=== PATIENT | male | born 1950 ===

== ENCOUNTER 2016-09-25 21:18 | Inpatient (IN) | payer MEDICAID, OTHER ==
[2016-09-25] MEDS ORDERED: Sodium Chloride 0.9% 1,000 ML IV ONE (21:46)
--- NOTE | 2016-09-25 21:50 | C.PDOC ---
History Of Present Illness 66 year old patient presents to the ED complaining of several episodes of watery diarrhea for the past 5 days. Patient also complains of vomiting for 1 day. He has been able to tolerate some water. He feels like his throat is dry and voice is becoming hoarse. Patient denies fever, chills, abdominal pain, urinary symptoms, shortness of breath, or any other complaints. Time Seen by Provider: 09/25/16 21:40 Chief Complaint (Nursing): Abdominal Pain History Per: Patient History/Exam Limitations: no limitations Onset/Duration Of Symptoms: Days (5) Current Symptoms Are (Timing): Still Present Context: Other Severity: None Pain Scale Rating Of: 0 Radiation Of Pain To:: None Quality Of Discomfort: Unable To Describe Associated Symptoms: Vomiting, Diarrhea Exacerbating Factors: None Alleviating Factors: None Last Bowel Movement: Today Recent travel outside of the [place] States: No Past Medical History Reviewed: Historical Data, Nursing Documentation, Vital Signs Vital Signs: Last Vital Signs Temp 97.7 F 09/25/16 21:34 Pulse 108 H 09/25/16 21:34 Resp 20 09/25/16 21:34 BP 146/100 H 09/25/16 21:34 Pulse Ox 98 09/25/16 22:55 Family History: States: Unknown Family Hx - Social History Hx Alcohol Use: No Hx Substance Use: No - Immunization History Hx Tetanus Toxoid Vaccination: No Hx Influenza Vaccination: No Hx Pneumococcal Vaccination: No Review Of Systems Except As Marked, All Systems Reviewed And Found Negative. Constitutional: Negative for: Fever, Chills ENT: Positive for: Other (throat dryness) Respiratory: Negative for: Shortness of Breath Gastrointestinal: Positive for: Vomiting, Diarrhea. Negative for: Abdominal Pain Genitourinary: Negative for: Dysuria, Hematuria Physical Exam - Physical Exam Appears: Non-toxic, No Acute Distress, Other (dehydrated) Skin: Warm, Dry Head: Atraumatic, Normacephalic Eye(s): bilateral: Normal Inspection, PERRL, EOMI Ear(s): Bilateral: Normal Nose: Normal Oral Mucosa: Dry Throat: Normal, No Erythema, No Exudate Neck: Normal ROM, Supple Chest: Symmetrical Cardiovascular: Rhythm Regular (tachycardic) Respiratory: Normal Breath Sounds, No Rales, No Rhonchi, No Wheezing Gastrointestinal/Abdominal: Soft, No Tenderness, No Guarding, No Rebound Back: Normal Inspection, No CVA Tenderness Extremity: Normal ROM Neurological/Psych: Oriented x3, Normal Speech, Normal Cognition Gait: Steady ED Course And Treatment - Laboratory Results Result Diagrams: 09/25/16 22:01 09/25/16 22:01 Lab Interpretation: Abnormal (WBC 19.2 with left shift, glucose 404 with Na+129 , Cl-86) O2 Sat by Pulse Oximetry: 98 (room air) Pulse Ox Interpretation: Normal - Physician Consult Information Time Consulting Physician Contacted: 22:51 Physician Contacted: Sean Castro Medical Decision Making Medical Decision Making: Plan: * Labs * IV fluids Disposition - Disposition Disposition: HOSPITALIZED Disposition Time: 22:55 Condition: IMPROVED - POA Present On Arrival: Poor Glycemic Control - Clinical Impression Clinical Impression: Diarrhea, Uncontrolled diabetes mellitus - Scribe Statement The provider has reviewed the documentation as recorded by the Scribe Cassandra Harris Provider Attestation: All medical record entries made by the Scribe were at my direction and personally dictated by me. I have reviewed the chart and agree that the record accurately reflects my personal performance of the history, physical exam, medical decision making, and the department course for this patient. I have also personally directed, reviewed, and agree with the discharge instructions and disposition.
[2016-09-25 22:06] LABS: BASO # 0.1 K/uL (0.0-0.2); BASO % 0.5 % (0.0-2.0); EOS # 0.1 K/uL (0.0-0.7); EOS % 0.3 % (0.0-4.0); LYMPH # 1.8 K/uL (1.0-4.3); LYMPH % 9.2 % (20.0-40.0); MEAN CORPUSCULAR HEMOGLOBIN 21.3 pg (27.0-31.0); MEAN CORPUSCULAR HGB CONC 31.4 g/dL (33.0-37.0); MEAN PLATELET VOLUME 9.4 fL (7.2-11.7); MONO # 1.9 K/uL (0.0-0.8); MONO % 9.9 % (0.0-10.0); PLATELET COUNT 454 K/uL (130-400); RED CELL DISTRIBUTION WIDTH 18.1 % (11.5-14.5); WHITE BLOOD COUNT 19.2 K/uL (4.8-10.8)
[2016-09-25 22:17] LABS: CHLORIDE 86 mmol/L (98-107); POTASSIUM 4.2 mmol/L (3.6-5.2); SODIUM 129 mmol/L (132-148)
[2016-09-25 22:17] LABS: RBC URINE 2 /hpf (0-3); URINE BACTERIA RARE (<OCC); URINE BILIRUBIN NEGATIVE (NEGATIVE); URINE BLOOD NEGATIVE (NEGATIVE); URINE COLOR Amber (YELLOW); URINE GLUCOSE (UA) 3+ mg/dL (Normal); URINE KETONE TRACE mg/dL (NEGATIVE); URINE LEUKOCYTE ESTERASE NEG Leu/uL (Negative); URINE PROTEIN 2+ mg/dL (NEGATIVE); WBC URINE 4 /hpf (0-5)
[2016-09-25 22:19] LABS: AST/SGOT 18 U/L (17-59); BILIRUBIN,TOTAL 1.1 mg/dL (0.2-1.3); CARBON DIOXIDE 30 mmol/L (22-30); GFR AFRICAN-AMERICAN > 60; TOTAL PROTEIN 7.6 g/dL (6.3-8.3)
[2016-09-25 22:20] LABS: ALKALINE PHOSPHATASE 132 U/L (38-126); ALT/SGPT 14 U/L (21-72); BLOOD UREA NITROGEN 19 mg/dL (9-20); CALCIUM 8.7 mg/dl (8.6-10.4)
[2016-09-25 22:24] LABS: GLUCOSE,RANDOM 404 mg/dL (75-110)
[2016-09-25 22:35] LABS: NEUTROPHIL 86 % (50-75); TOTAL CELLS COUNTED 100
[2016-09-26] MEDS ORDERED: (Novolog) Insulin Aspart, Recombinant 100 u/ml 10 ml vial SC ONE ×2 (01:27→02:09)
--- NOTE | 2016-09-26 01:58 | CP.PCM.HP ---
<Hilaria Srinivasan - Last Filed: 09/26/16 02:54> History of Present Illness - History of Present Illness History of Present Illness: CC: "diarrhea and vomiting" HPI: Patient is a 66 year old male with medical history of diabetes mellitus who presents to the emergency department for multiple episodes of diarrhea. Patient reports the diarrhea started 10 days ago. He states he would experience episodes of diarrhea every two hours. Patient states bowel movements were yellow -to-green in color and foul smelling. His last episode of diarrhea was this afternoon. He denies fever, chills, abdominal pain, hematochezia, sick contacts or recent travel. Patient also admits to one episode of clear emesis after drinking water. Patient reports loss of balance with walking and states he fell to the ground while washing his hands in the bathroom 10 days ago. He denies loss of consciousness and recurrent episodes. Patient was noted to be hyperglycemic in emergency department with random glucose of 404. Patient reports he was diagnosed with diabetes in 1999. He does not follow-up with a primary care physician. Patient states he gets insulin from [facility] without a prescription and typically takes 15 units of Insulin twice daily. He does not check his sugar with a glucometer. He states he has been suffering from dry mouth but denies polydipsia and polyuria. Patient also denies chest pain, shortness of breath at rest or with exertion, palpitations, vision changes, cough, headache, weight loss, dysuria, lower extremity swelling, pain or paresthesias. PMD: none PMH: DM Medications: Insulin 15 U SC BID Allergies: NKDA Family History: Father - DM, Mother - from brain tumor Surgical History: none Social History: Denies tobacco, alcohol and illicit drug use. 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 Present on Admission - Present on Admission Any Indicators Present on Admission: No History of DVT/PE: No History of Uncontrolled Diabetes: Yes Urinary Catheter: No Decubitus Ulcer Present: No Review of Systems - Constitutional Constitutional: Fatigue. absent: Chills, Fever, Headache, Night Sweats, Weight Gain, Weight Loss - EENT Eyes: absent: Blurred Vision, Change in Vision Ears: absent: Ear Discharge, Ear Pain Nose/Mouth/Throat: absent: Nasal Congestion, Nasal Discharge - Cardiovascular Cardiovascular: absent: Chest Pain, Chest Pain at Rest, Chest Pain with Activity , Dyspnea, Dyspnea on Exertion, Leg Edema, Palpitations, Pedal Edema - Respiratory Respiratory: absent: Cough, Dyspnea, Wheezing, Chest Congestion - Gastrointestinal Gastrointestinal: Diarrhea, Vomiting. absent: Abdominal Pain, Constipation, Dysphagia, Excessive Flatus, Hematemesis, Hematochezia, Nausea - Genitourinary Genitourinary: absent: Difficulty Urinating, Dysuria, Urinary Frequency - Musculoskeletal Musculoskeletal: absent: Arthralgias, Back Pain, Numbness, Tingling - Integumentary Integumentary: absent: Changing Lesions, New Lesions - Neurological Neurological: absent: Numbness, Headaches, Paresthesias, Tingling Past Patient History - Past Social History Smoking Status: Former Smoker - ENDOCRINE/METABOLIC Hx Diabetes Mellitus Type 1: Yes - PSYCHIATRIC Hx Substance Use: No - SURGICAL HISTORY Hx Surgeries: No - ANESTHESIA Hx Anesthesia: No Meds Allergies/Adverse Reactions: Allergies Allergy/AdvReac Type Severity Reaction Status Date / Time No Known Allergies Allergy Unverified 09/25/16 21:38 Physical Exam - Constitutional Appears: Non-toxic, No Acute Distress - Head Exam Head Exam: ATRAUMATIC, NORMAL INSPECTION, NORMOCEPHALIC - Eye Exam Eye Exam: EOMI, Normal appearance, PERRL - ENT Exam ENT Exam: Mucous Membranes Dry - Neck Exam Neck exam: Positive for: Full Rom, Normal Inspection. Negative for: Lymphadenopathy, Tenderness, Thyromegaly - Respiratory Exam Respiratory Exam: Clear to Auscultation Bilateral, NORMAL BREATHING PATTERN. absent: Chest Wall Tenderness, Rales, Rhonchi, Wheezes - Cardiovascular Exam Cardiovascular Exam: Tachycardia, +S1, +S2. absent: Bradycardia - GI/Abdominal Exam GI & Abdominal Exam: Normal Bowel Sounds, Soft, Tenderness. absent: Distended, Firm, Guarding Additional comments: left lower abdominal quadrant tenderness to palpation - Extremities Exam Extremities exam: Positive for: normal capillary refill, pedal pulses present. Negative for: pedal edema, tenderness Additional comments: hyperpigmented patches to bilateral shins - Back Exam Back exam: NORMAL INSPECTION. absent: CVA tenderness (L), CVA tenderness (R), tenderness - Neurological Exam Neurological exam: Alert, CN II-XII Intact, Normal Gait, Oriented x3 - Psychiatric Exam Psychiatric exam: Normal Affect, Normal Mood - Skin Additional comments: hyperpigmented patches to bilateral shins of lower extremities consistent with stasis dermatitis Results - Vital Signs Recent Vital Signs: Last Vital Signs Temp 97.7 F 09/25/16 21:34 Pulse 108 H 09/25/16 21:34 Resp 20 09/25/16 21:34 BP 146/100 H 09/25/16 21:34 Pulse Ox 98 09/25/16 23:01 - Labs Result Diagrams: 09/25/16 22:01 09/25/16 22:01 Assessment & Plan - Assessment and Plan (Free Text) Assessment: 1. Diarrhea Leukocytosis of 19.2, Neut 86, Band Neutrophils 1 Stool studies - stool culture, leukocytes, electrolytes, c. diff sent Start Normal Saline IV @100cc Monitor 2. Hyperglycemia History of Uncontrolled DM Random Glucose of 404 Insulin 2 units given Started on RISS Normal Saline IV @100cc Accuchecks f/u hemoglobin a1c Monitor 3. 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 Tachycardia pulse 108 f/u TSH, free T4 f/u EKG 5. Prophylaxis SCDs Heparin 5000 U SC Q12h Protonix 20 mg po daily - Date & Time Date: 09/26/16 Time: 03:11 <Sean Castro - Last Filed: 09/26/16 06:32> Results - Vital Signs Recent Vital Signs: Last Vital Signs Temp 98.6 F 09/26/16 02:30 Pulse 98 H 09/26/16 02:30 Resp 20 09/26/16 02:30 BP 147/89 09/26/16 02:30 Pulse Ox 98 09/26/16 02:30 - Labs Result Diagrams: 09/25/16 22:01 09/25/16 22:01 Labs: Laboratory Results - last 24 hr 09/26/16 02:02 POC Glucose (mg/dL) 285 H Assessment & Plan - Date & Time Date: 09/26/16 (I have seen and examined the patient. I agree with the findings and plan of care as documented by Dr. Srinivasan. Patient with diarrhea. Stool studies. IVF for dehydration. Uncontrolled diabetes. Patient reports to use unspecified insulin from [facility] but denies seeing a prescribing doctor. NISS with accuchecks. Check hemoglobin A1C. Start lisinopril for hypertension. Monitor for acute changes.) Time: 06:31 Attending/Attestation - Attestation I have personally seen and examined this patient.: Yes I have fully participated in the care of the patient.: Yes I have reviewed all pertinent clinical information: Yes
[2016-09-26] MEDS: Sodium Chloride 0.9% 1,000 ML IV SCH ×3 (02:37→21:17)
[2016-09-26 04:28] VITALS: RESP 20
[2016-09-26 08:00] LABS: EOS # 0.1 K/uL (0.0-0.7); EOS % 0.8 % (0.0-4.0); MEAN CORPUSCULAR HEMOGLOBIN 21.4 pg (27.0-31.0); MEAN PLATELET VOLUME 9.4 fL (7.2-11.7)
[2016-09-26 08:11] LABS: BASO % 0.3 % (0.0-2.0); HEMATOCRIT 36.3 % (35.0-51.0); LYMPH # 1.6 K/uL (1.0-4.3); LYMPH % 14.2 % (20.0-40.0); MEAN CELL VOLUME 67.4 fL (80.0-94.0); MEAN CORPUSCULAR HGB CONC 31.8 g/dL (33.0-37.0); MONO # 1.3 K/uL (0.0-0.8); MONO % 11.7 % (0.0-10.0); RED CELL DISTRIBUTION WIDTH 17.6 % (11.5-14.5); WHITE BLOOD COUNT 11.1 K/uL (4.8-10.8)
[2016-09-26] MEDS: (Novolog) Insulin Aspart, Recombinant 100 u/ml 10 ml vial SC SCH ×4 (08:22→21:16)
[2016-09-26 08:30] LABS: CHLORIDE 94 mmol/L (98-107); SODIUM 132 mmol/L (132-148)
[2016-09-26 08:31] LABS: POTASSIUM 4.3 mmol/L (3.6-5.2)
[2016-09-26 08:32] LABS: CHOLESTEROL 135 mg/dL (0-199); GFR AFRICAN-AMERICAN > 60
[2016-09-26 08:33] LABS: ALB/GLOB RATIO 0.9 (1.0-2.1); ALKALINE PHOSPHATASE 94 U/L (38-126); ALT/SGPT 16 U/L (21-72); AST/SGOT 15 U/L (17-59); BILIRUBIN,TOTAL 0.9 mg/dL (0.2-1.3); BLOOD UREA NITROGEN 18 mg/dL (9-20); CARBON DIOXIDE 31 mmol/L (22-30); GLUCOSE,RANDOM 211 mg/dL (75-110); TOTAL PROTEIN 6.4 g/dL (6.3-8.3)
[2016-09-26 08:59] LABS: THYROID STIMULATING HORMONE 0.56 mIU/L (0.46-4.68)
[2016-09-26] MEDS ORDERED: Pantoprazole 20 mg EC Tab PO SCH (10:00)
[2016-09-26] MEDS ORDERED: cefTRIAXone IV 1 gm in Dextros 50 ML IVPB SCH (11:00)
[2016-09-26 12:18] LABS: C DIFF TOXIN A B NEGATIVE (NEGATIVE)
--- NOTE | 2016-09-26 14:33 | CP.PCM.PN ---
<Chris Allen - Last Filed: 09/26/16 14:34> Subjective - Date & Time of Evaluation Date of Evaluation: 09/26/16 Time of Evaluation: 14:30 - Subjective Subjective: Med progress note. Attending: Dr. Stark Pt seen and examined at bedside. No acute distress. Pt has had 2 more episodes of diarrhea past 24 hrs, becoming more formed. No blood. Has never had colonoscopy. No fevers, chills, vomiting. Objective - Vital Signs/Intake and Output Vital Signs (last 24 hours): Temp Pulse Resp BP Pulse Ox 98.1 F 91 H 20 117/81 98 09/26/16 07:51 09/26/16 07:51 09/26/16 07:51 09/26/16 07:51 09/26/16 07:51 Intake and Output: 09/26/16 09/26/16 06:59 18:59 Intake Total 640 Balance 640 - Medications Medications: Current Medications Heparin Sodium (Porcine) (Heparin) 5,000 units SC Q12 [facility] Last Admin: 09/26/16 10:18 Dose: 5,000 units Sodium Chloride (Sodium Chloride 0.9%) 1,000 mls @ 100 mls/hr IV .Q10H [facility] Last Admin: 09/26/16 13:00 Dose: 100 mls/hr Ceftriaxone Sodium (Rocephin Iv 1 Gm Duplex) 50 mls @ 100 mls/hr IVPB Q24H [facility] Last Admin: 09/26/16 13:00 Dose: 100 mls/hr Insulin Aspart (Novolog) 0 unit SC TIDAC [facility] PRN Reason: Protocol Last Admin: 09/26/16 13:43 Dose: Not Given Lisinopril (Zestril) 5 mg PO DAILY [facility] Last Admin: 09/26/16 10:18 Dose: 5 mg Pantoprazole Sodium (Protonix Ec Tab) 20 mg PO DAILY [facility] Last Admin: 09/26/16 10:18 Dose: 20 mg Pneumococcal Polyvalent Vaccine (Pneumovax 23 Vaccine) 0.5 ml IM .ONCE ONE Stop: 09/28/16 10:01 - Labs Labs: 09/26/16 07:53 09/26/16 07:53 - Constitutional Appears: Non-toxic, No Acute Distress - Head Exam Head Exam: ATRAUMATIC, NORMAL INSPECTION, NORMOCEPHALIC - Eye Exam Eye Exam: EOMI - ENT Exam ENT Exam: Mucous Membranes Dry - Neck Exam Neck Exam: Full ROM, Normal Inspection - Respiratory Exam Respiratory Exam: NORMAL BREATHING PATTERN. absent: Respiratory Distress - Cardiovascular Exam Cardiovascular Exam: +S1, +S2 - GI/Abdominal Exam GI & Abdominal Exam: Soft, Normal Bowel Sounds. absent: Tenderness - Extremities Exam Extremities Exam: Full ROM, Normal Inspection - Neurological Exam Neurological Exam: Alert, Awake, Oriented x3 - Psychiatric Exam Psychiatric exam: Normal Affect, Normal Mood - Skin Skin Exam: Dry, Intact, Normal Color, Warm Assessment and Plan - Assessment and Plan (Free Text) Assessment: This is a 66 yo male with past medical hx of DM (diagnosed in 1999), originally from [facility], presenting with 1. Diarrhea pt has borderline white count 11.1 today, trending down from 19.2 yesterday Stool studies - stool culture, leukocytes, electrolytes, c. diff sent ova and parasites pending stool c diff negative will continue Normal Saline IV @100cc Monitor has never had colonoscopy GI consult. Vel/Barbara. recs appreciated. 2. Hyperglycemia History of Uncontrolled DM Random Glucose of 404 on admission, Insulin 2 units given A1C of 9.0 Normal Saline IV @100cc Accuchecks Monitor continue novolog medium dose sliding scale 3. Hypertension Start Lisinopril 5 mg po daily 4. Low HDL -will recommend OTC fish oil upon discharge. 5. Tachycardia -HR better controlled -TSH wnl 6. Prophylaxis SCDs Heparin 5000 U SC Q12h Protonix 20 mg po daily discussed with Dr. Stark. <Misa Stark V - Last Filed: 09/26/16 21:02> Objective - Vital Signs/Intake and Output Vital Signs (last 24 hours): Temp Pulse Resp BP Pulse Ox 98.3 F 100 H 20 108/72 95 09/26/16 16:00 09/26/16 16:00 09/26/16 16:00 09/26/16 16:00 09/26/16 16:00 Intake and Output: 09/26/16 09/27/16 18:59 06:59 Intake Total 1500 Balance 1500 - Medications Medications: Current Medications Heparin Sodium (Porcine) (Heparin) 5,000 units SC Q12 [facility] Last Admin: 09/26/16 10:18 Dose: 5,000 units Sodium Chloride (Sodium Chloride 0.9%) 1,000 mls @ 100 mls/hr IV .Q10H [facility] Last Admin: 09/26/16 13:00 Dose: 100 mls/hr Ceftriaxone Sodium (Rocephin Iv 1 Gm Duplex) 50 mls @ 100 mls/hr IVPB Q24H [facility] Last Admin: 09/26/16 13:00 Dose: 100 mls/hr Insulin Aspart (Novolog) 0 unit SC TIDAC [facility] PRN Reason: Protocol Last Admin: 09/26/16 16:30 Dose: 8 unit Lisinopril (Zestril) 5 mg PO DAILY [facility] Last Admin: 09/26/16 10:18 Dose: 5 mg Pantoprazole Sodium (Protonix Ec Tab) 20 mg PO DAILY [facility] Last Admin: 09/26/16 10:18 Dose: 20 mg Pneumococcal Polyvalent Vaccine (Pneumovax 23 Vaccine) 0.5 ml IM .ONCE ONE Stop: 09/28/16 10:01 Saccharomyces Boulardii (Florastor) 250 mg PO BID [facility] - Labs Labs: 09/26/16 07:53 09/26/16 07:53 Attending/Attestation - Attestation I have personally seen and examined this patient.: Yes I have fully participated in the care of the patient.: Yes I have reviewed all pertinent clinical information, including history, physical exam and plan: Yes Notes (Text): Patient seen, examined and case discussed with day-time resident. Patient seen this morning. Patient reporting for the past ten days he has been having jelly consistency type of stool. Denies BRBPR, denies black stools. Patient denies recent hospitalizations, denies recent PO antibiotics, denies family hx of colon cancer. Patient denies prior personal history of colonoscopy. Patient reports he was diagnosed with diabetes in , and is currently on insulin. Patient cannot recall he has been on PO anti- hypoglycemics or not. Patient reports family history of diabetes. Patient reports during this ten day span, he was having diarrhea every 2 hours. Patient reports he is eating tilapia; and reports he received had chicken salad with Trendient; has not had Trendient in one year. Patient denies eating any outside food and reports he cooks his own meals. Patient at bedside this morning reporting for 2 bowel movements this morning. GI consult (Dr. Crowder) help appreciated for further recommendations Patient ordered for stool studies. Patient reported dysuria-->started on Rocephin and pending urine culture. Patient started on probiotic and will monitor diarrhea in the interim. Assessment/Plan 1. Diarrhea * GI consult. Vel/Barbara. recs appreciated. * Stool studies - stool culture, leukocytes, electrolytes, c. diff negative, and stool ova and parasite * Continue to monitor frequency and character of diarrhea * Continue IV fluids 2. Dehydration * likely secondary to diarrhea * Patient is currently on IV fluids 3. Uncontrolled diabetes * [id number]: 9.0 * NS 100cc/hr * Accuchecks QAC ans HS * novolog medium dose sliding scale * Lisinopril 5mg PO daily 4. Hypertension * Lisinopril 5 mg po daily * Monitor vital signs 5. Low HDL * will recommend OTC fish oil upon discharge 6. Tachycardia * likely due to dehydration * heart rate improved during the day * Thyroid studies within normal 7. Prophylaxis * SCDs b/ * Heparin 5000 U SC Q12h for DVT ppx * Protonix 40 mg po daily for GI ppx * Loan Teller referral * MICKI portillo
[2016-09-26 15:08] LABS: FECAL LEUKOCYTES POSITIVE (NEGATIVE)
--- NOTE | 2016-09-26 18:39 | CP.PCM.CON ---
History of Present Illness - History of Present Illness History of Present Illness: Asked today to see pt for GI service call for diarrhea. Pt reports diarrhea x 1o days with sl nausea. Reports only 1 episode today- in am. Denies antibiotics, travel, meds, celiac, lactose intoll, pancreas disease. Drinks mild with no problem. Review of Systems - Constitutional Constitutional: absent: Chills, Fever, Headache, Weight Loss - EENT Eyes: absent: Photophobia - Cardiovascular Cardiovascular: absent: Chest Pain, Dyspnea - Respiratory Respiratory: absent: Dyspnea, Hemoptysis, Wheezing - Gastrointestinal Gastrointestinal: Diarrhea, Nausea. absent: Abdominal Pain, Bloating, Constipation, Hematemesis, Hematochezia, Melena, Vomiting - Genitourinary Genitourinary: absent: Dysuria, Hematuria - Musculoskeletal Musculoskeletal: absent: Muscle Cramps, Myalgias - Integumentary Integumentary: absent: Jaundice - Neurological Neurological: absent: Convulsions Past Patient History - Past Medical History & Family History Past Medical History?: No - Past Social History Smoking Status: Never Smoked - CARDIAC Hx Cardiac Disorders: No - PULMONARY Hx Respiratory Disorders: No - NEUROLOGICAL Hx Neurological Disorder: No - HEENT Hx HEENT Problems: No - RENAL Hx Chronic Kidney Disease: No - ENDOCRINE/METABOLIC Hx Diabetes Mellitus Type 1: Yes - HEMATOLOGICAL/ONCOLOGICAL Hx Blood Disorders: No Hx Blood Transfusions: No - INTEGUMENTARY Hx Dermatological Problems: No - MUSCULOSKELETAL/RHEUMATOLOGICAL Hx Falls: No - GASTROINTESTINAL Hx Gastrointestinal Disorders: No - GENITOURINARY/GYNECOLOGICAL Hx Genitourinary Disorders: No - PSYCHIATRIC Hx Substance Use: No - SURGICAL HISTORY Hx Surgeries: No - ANESTHESIA Hx Anesthesia: No Meds Allergies/Adverse Reactions: Allergies Allergy/AdvReac Type Severity Reaction Status Date / Time No Known Allergies Allergy Unverified 09/25/16 21:38 - Medications Medications: Current Medications Heparin Sodium (Porcine) (Heparin) 5,000 units SC Q12 [facility] Last Admin: 09/26/16 10:18 Dose: 5,000 units Sodium Chloride (Sodium Chloride 0.9%) 1,000 mls @ 100 mls/hr IV .Q10H [facility] Last Admin: 09/26/16 13:00 Dose: 100 mls/hr Ceftriaxone Sodium (Rocephin Iv 1 Gm Duplex) 50 mls @ 100 mls/hr IVPB Q24H [facility] Last Admin: 09/26/16 13:00 Dose: 100 mls/hr Insulin Aspart (Novolog) 0 unit SC TIDAC [facility] PRN Reason: Protocol Last Admin: 09/26/16 16:30 Dose: 8 unit Lisinopril (Zestril) 5 mg PO DAILY [facility] Last Admin: 09/26/16 10:18 Dose: 5 mg Pantoprazole Sodium (Protonix Ec Tab) 20 mg PO DAILY [facility] Last Admin: 09/26/16 10:18 Dose: 20 mg Pneumococcal Polyvalent Vaccine (Pneumovax 23 Vaccine) 0.5 ml IM .ONCE ONE Stop: 09/28/16 10:01 Physical Exam - Constitutional Appears: Well - Respiratory Exam Respiratory Exam: Clear to Auscultation Bilateral - Cardiovascular Exam Cardiovascular Exam: RRR - GI/Abdominal Exam GI & Abdominal Exam: Normal Bowel Sounds, Soft. absent: Distended, Guarding, Rebound, Tenderness - Extremities Exam Extremities exam: Negative for: normal inspection - Neurological Exam Neurological exam: Alert, Oriented x3 Results - Vital Signs Recent Vital Signs: Last Vital Signs Temp 98.3 F 09/26/16 16:00 Pulse 100 H 09/26/16 16:00 Resp 20 09/26/16 16:00 BP 108/72 09/26/16 16:00 Pulse Ox 95 09/26/16 16:00 - Labs Result Diagrams: 09/26/16 07:53 09/26/16 07:53 Labs: Laboratory Results - last 24 hr 09/26/16 09/26/16 09/26/16 01:34 02:02 07:18 WBC RBC Hgb Hct MCV MCH MCHC RDW Plt Count MPV Neut % (Auto) Lymph % (Auto) [place] % (Auto) Eos % (Auto) Baso % (Auto) Neut # Lymph # [place] # Eos # Baso # Sodium Potassium Chloride Carbon Dioxide Anion Gap BUN Creatinine Est GFR ( Amer) Est GFR (Non-Af Amer) POC Glucose (mg/dL) 285 H 240 H Random Glucose Hemoglobin A1c Calcium Total Bilirubin AST ALT Alkaline Phosphatase Total Protein Albumin Globulin Albumin/Globulin Ratio Triglycerides Cholesterol LDL Cholesterol Direct HDL Cholesterol Free T4 TSH 3rd Generation Stool Leukocytes, Qual Positive H C. difficile Ag & Toxin Negative 09/26/16 09/26/16 09/26/16 07:53 07:53 07:53 WBC 11.1 H RBC 5.38 Hgb 11.5 L D Hct 36.3 MCV 67.4 L MCH 21.4 L MCHC 31.8 L RDW 17.6 H Plt Count 282 D MPV 9.4 Neut % (Auto) 73.0 Lymph % (Auto) 14.2 L [place] % (Auto) 11.7 H Eos % (Auto) 0.8 Baso % (Auto) 0.3 Neut # 8.1 H Lymph # 1.6 [place] # 1.3 H Eos # 0.1 Baso # 0.0 Sodium 132 Potassium 4.3 Chloride 94 L Carbon Dioxide 31 H Anion Gap 11 BUN 18 Creatinine 0.7 L Est GFR ( Amer) > 60 Est GFR (Non-Af Amer) > 60 POC Glucose (mg/dL) Random Glucose 211 H Hemoglobin A1c 9.0 H Calcium 8.0 L Total Bilirubin 0.9 AST 15 L ALT 16 L Alkaline Phosphatase 94 Total Protein 6.4 Albumin 2.9 L D Globulin 3.4 Albumin/Globulin Ratio 0.9 L Triglycerides 115 Cholesterol 135 LDL Cholesterol Direct 79 HDL Cholesterol 31 Free T4 TSH 3rd Generation 0.56 Stool Leukocytes, Qual C. difficile Ag & Toxin 09/26/16 09/26/16 09/26/16 07:53 11:12 16:27 WBC RBC Hgb Hct MCV MCH MCHC RDW Plt Count MPV Neut % (Auto) Lymph % (Auto) [place] % (Auto) Eos % (Auto) Baso % (Auto) Neut # Lymph # [place] # Eos # Baso # Sodium Potassium Chloride Carbon Dioxide Anion Gap BUN Creatinine Est GFR ( Amer) Est GFR (Non-Af Amer) POC Glucose (mg/dL) 141 H 357 H Random Glucose Hemoglobin A1c Calcium Total Bilirubin AST ALT Alkaline Phosphatase Total Protein Albumin Globulin Albumin/Globulin Ratio Triglycerides Cholesterol LDL Cholesterol Direct HDL Cholesterol Free T4 1.78 TSH 3rd Generation Stool Leukocytes, Qual C. difficile Ag & Toxin Assessment & Plan (1) Hypertension Status: Acute (2) Anemia Assessment and Plan: Unclear etiology Status: Acute (3) Diarrhea Assessment and Plan: Consider infection, gastroenteritis. c difficile is negative. Denies antibiotics. Diarrhea is improving- I doubt colitis/IBD. REC: probiotics. Can rocephin be stopped? I instructed the patient that he will need outpatient colonoscopy. Status: Acute (4) Uncontrolled diabetes mellitus Status: Acute
[2016-09-26] MEDS ORDERED: Pantoprazole 40 mg EC Tab PO SCH (21:01)
[2016-09-26 23:53] VITALS: O2SAT 97
[2016-09-27] MEDS: Sodium Chloride 0.9% 1,000 ML IV SCH ×2 (01:00→09:23)
[2016-09-27 07:14] LABS: BASO % 0.2 % (0.0-2.0); EOS % 0.6 % (0.0-4.0); HEMATOCRIT 32.3 % (35.0-51.0); LYMPH # 1.3 K/uL (1.0-4.3); LYMPH % 14.6 % (20.0-40.0); MEAN CELL VOLUME 67.9 fL (80.0-94.0); MEAN CORPUSCULAR HEMOGLOBIN 21.6 pg (27.0-31.0); MEAN CORPUSCULAR HGB CONC 31.8 g/dL (33.0-37.0); MEAN PLATELET VOLUME 9.3 fL (7.2-11.7); MONO # 1.1 K/uL (0.0-0.8); NRBC % 0.1 % (0.0-2.0); WHITE BLOOD COUNT 8.7 K/uL (4.8-10.8)
[2016-09-27 07:17] LABS: INR 1.3
[2016-09-27] MEDS: (Novolog) Insulin Aspart, Recombinant 100 u/ml 10 ml vial SC SCH (07:30)
[2016-09-27 07:40] LABS: CHLORIDE 95 mmol/L (98-107)
[2016-09-27 07:41] LABS: POTASSIUM 4.9 mmol/L (3.6-5.2); SODIUM 129 mmol/L (132-148)
[2016-09-27 07:43] LABS: ALB/GLOB RATIO 0.8 (1.0-2.1); AST/SGOT 13 U/L (17-59); BILIRUBIN,TOTAL 0.8 mg/dL (0.2-1.3); CARBON DIOXIDE 28 mmol/L (22-30); GFR AFRICAN-AMERICAN > 60; TOTAL PROTEIN 5.5 g/dL (6.3-8.3)
[2016-09-27 07:44] LABS: ALKALINE PHOSPHATASE 82 U/L (38-126); ALT/SGPT 16 U/L (21-72); BLOOD UREA NITROGEN 11 mg/dL (9-20); CALCIUM 7.4 mg/dl (8.6-10.4); GLUCOSE,RANDOM 341 mg/dL (75-110); MAGNESIUM 1.8 mg/dL (1.6-2.3); PHOSPHOROUS 3.1 mg/dL (2.5-4.5)
[2016-09-27 08:09] VITALS: BP 114/72; PULSE 89; TEMP 98.4
[2016-09-27] MEDS ORDERED: Saccharomyces Boulardi 250 mg Cap PO SCH ×2 (10:00)
--- NOTE | 2016-09-27 12:20 | CP.PCM.PN ---
Subjective - Date & Time of Evaluation Date of Evaluation: 09/27/16 Time of Evaluation: 12:18 - Subjective Subjective: GI service follow up Diarrhea improving. No abdominal pain or overt GI bleeding. Anemic. Eating solids. Objective - Vital Signs/Intake and Output Vital Signs (last 24 hours): Temp Pulse Resp BP Pulse Ox 98.4 F 89 20 114/72 97 09/27/16 07:00 09/27/16 07:00 09/27/16 07:00 09/27/16 07:00 09/27/16 07:00 Intake and Output: 09/27/16 09/27/16 06:59 18:59 Intake Total 1100 Balance 1100 - Medications Medications: Current Medications Heparin Sodium (Porcine) (Heparin) 5,000 units SC Q12 [facility], [facility] Last Admin: 09/27/16 09:21 Dose: 5,000 units Sodium Chloride (Sodium Chloride 0.9%) 1,000 mls @ 100 mls/hr IV .Q10H FOR[facility], [facility] Last Admin: 09/27/16 09:23 Dose: 100 mls/hr Ceftriaxone Sodium (Rocephin Iv 1 Gm Duplex) 50 mls @ 100 mls/hr IVPB Q24H [facility], [facility] Last Admin: 09/26/16 13:00 Dose: 100 mls/hr Insulin Aspart (Novolog) 0 unit SC ACHS [facility], [facility]1983 PRN Reason: Protocol Last Admin: 09/27/16 07:30 Dose: 6 unit Lisinopril (Zestril) 5 mg PO DAILY [facility] Last Admin: 09/27/16 09:23 Dose: 5 mg Pantoprazole Sodium (Protonix Ec Tab) 40 mg PO DAILY [facility] Last Admin: 09/27/16 09:20 Dose: 40 mg Pneumococcal Polyvalent Vaccine (Pneumovax 23 Vaccine) 0.5 ml IM .ONCE ONE Stop: 09/28/16 10:01 Saccharomyces Boulardii (Florastor) 250 mg PO BID [facility], [facility] Last Admin: 09/27/16 09:21 Dose: 250 mg - Labs Labs: 09/27/16 07:03 09/27/16 07:03 PT 14.4 SECONDS (9.7-12.2) H 09/27/16 07:03 INR 1.3 09/27/16 07:03 APTT 33 SECONDS (21-34) 09/27/16 07:03 - Constitutional Appears: Well, No Acute Distress - Respiratory Exam Respiratory Exam: Clear to Ausculation Bilateral, NORMAL BREATHING PATTERN - Cardiovascular Exam Cardiovascular Exam: REGULAR RHYTHM - GI/Abdominal Exam GI & Abdominal Exam: Soft. absent: Distended, Tenderness Assessment and Plan (1) Anemia Assessment & Plan: Microcytic anemia- needs colonoscopy. Patient was provided with our contact information and instructed to call us to arrange colonoscopy as outpatient Status: Acute (2) Diarrhea Assessment & Plan: Gastroenteritis improving. may stop antibiotics. Discsuued with Dr Stark. Status: Acute
--- NOTE | 2016-09-27 13:55 | CP.PCM.DIS ---
<Misa Stark V - Last Filed: 09/27/16 17:58> Provider - Provider Date of Admission: 09/25/16 23:01 Attending physician: Misa Stark, [facility] Course - Lab Results Lab Results: Most Recent Lab Values WBC 8.7 K/uL (4.8-10.8) 09/27/16 07:03 RBC 4.76 Mil/uL (4.40-5.90) 09/27/16 07:03 Hgb 10.3 g/dL (12.0-18.0) L 09/27/16 07:03 Hct 32.3 % (35.0-51.0) L 09/27/16 07:03 MCV 67.9 fL (80.0-94.0) L 09/27/16 07:03 MCH 21.6 pg (27.0-31.0) L 09/27/16 07:03 MCHC 31.8 g/dL (33.0-37.0) L 09/27/16 07:03 RDW 18.0 % (11.5-14.5) H 09/27/16 07:03 Plt Count 199 K/uL (130-400) 09/27/16 07:03 MPV 9.3 fL (7.2-11.7) 09/27/16 07:03 Neut % (Auto) 71.6 % (50.0-75.0) 09/27/16 07:03 Lymph % (Auto) 14.6 % (20.0-40.0) L 09/27/16 07:03 Irwin % (Auto) 13.0 % (0.0-10.0) H 09/27/16 07:03 Eos % (Auto) 0.6 % (0.0-4.0) 09/27/16 07:03 Baso % (Auto) 0.2 % (0.0-2.0) 09/27/16 07:03 Neut # 6.2 K/uL (1.8-7.0) 09/27/16 07:03 Lymph # 1.3 K/uL (1.0-4.3) 09/27/16 07:03 Irwin # 1.1 K/uL (0.0-0.8) H 09/27/16 07:03 Eos # 0.0 K/uL (0.0-0.7) 09/27/16 07:03 Baso # 0.0 K/uL (0.0-0.2) 09/27/16 07:03 Neutrophils % (Manual) 86 % (50-75) H 09/25/16 22:01 Band Neutrophils % 1 % (0-2) 09/25/16 22:01 Lymphocytes % (Manual) 6 % (20-40) L 09/25/16 22:01 Monocytes % (Manual) 7 % (0-10) 09/25/16 22:01 Platelet Estimate Normal (NORMAL) 09/25/16 22:01 Polychromasia Slight 09/25/16 22:01 Hypochromasia (manual) Slight 09/25/16 22:01 Anisocytosis (manual) Slight 09/25/16 22:01 Microcytosis (manual) Slight 09/25/16 22:01 Ovalocytes Slight 09/25/16 22:01 PT 14.4 SECONDS (9.7-12.2) H 09/27/16 07:03 INR 1.3 09/27/16 07:03 APTT 33 SECONDS (21-34) 09/27/16 07:03 Sodium 129 mmol/L (132-148) L 09/27/16 07:03 Potassium 4.9 mmol/L (3.6-5.2) 09/27/16 07:03 Chloride 95 mmol/L (98-107) L 09/27/16 07:03 Carbon Dioxide 28 mmol/L (22-30) 09/27/16 07:03 Anion Gap 11 (10-20) 09/27/16 07:03 BUN 11 mg/dL (9-20) 09/27/16 07:03 Creatinine 0.8 MG/DL (0.8-1.5) 09/27/16 07:03 Est GFR ( Amer) > 60 09/27/16 07:03 Est GFR (Non-Af Amer) > 60 09/27/16 07:03 POC Glucose (mg/dL) 319 mg/dL (65-110) H 09/27/16 11:26 Random Glucose 341 mg/dL (75-110) H 09/27/16 07:03 Hemoglobin A1c 9.0 % (4.2-6.5) H 09/26/16 07:53 Calcium 7.4 mg/dl (8.6-10.4) L 09/27/16 07:03 Phosphorus 3.1 mg/dL (2.5-4.5) 09/27/16 07:03 Magnesium 1.8 mg/dL (1.6-2.3) 09/27/16 07:03 Total Bilirubin 0.8 mg/dL (0.2-1.3) 09/27/16 07:03 AST 13 U/L (17-59) L 09/27/16 07:03 ALT 16 U/L (21-72) L 09/27/16 07:03 Alkaline Phosphatase 82 U/L (38-126) 09/27/16 07:03 Total Protein 5.5 g/dL (6.3-8.3) L 09/27/16 07:03 Albumin 2.5 g/dL (3.5-5.0) L 09/27/16 07:03 Globulin 3.0 gm/dL (2.2-3.9) 09/27/16 07:03 Albumin/Globulin Ratio 0.8 (1.0-2.1) L 09/27/16 07:03 Triglycerides 115 mg/dL (0-149) 09/26/16 07:53 Cholesterol 135 mg/dL (0-199) 09/26/16 07:53 LDL Cholesterol Direct 79 mg/dL (0-129) 09/26/16 07:53 HDL Cholesterol 31 mg/dL (30-70) 09/26/16 07:53 Lipase 53 U/L (23-300) 09/25/16 22:01 Free T4 1.78 ng/dL (0.78-2.19) 09/26/16 07:53 TSH 3rd Generation 0.56 mIU/L (0.46-4.68) 09/26/16 07:53 Urine Color Isabel (YELLOW) 09/25/16 21:50 Urine Clarity Hazy (Clear) 09/25/16 21:50 Urine pH 5.0 (5.0-8.0) 09/25/16 21:50 Ur Specific [place] 1.028 (1.003-1.030) 09/25/16 21:50 Urine Protein 2+ mg/dL (NEGATIVE) H 05/24/17 21:50 Urine Glucose (UA) 3+ mg/dL (Normal) H 09/25/16 21:50 Urine Ketones Trace mg/dL (NEGATIVE) 09/25/16 21:50 Urine Blood Negative (NEGATIVE) 09/25/16 21:50 Urine Nitrate Negative (NEGATIVE) 09/25/16 21:50 Urine Bilirubin Negative (NEGATIVE) 09/25/16 21:50 Urine Urobilinogen 4.0 mg/dL (0.2-1.0) 09/25/16 21:50 Ur Leukocyte Esterase Neg Ana/uL (Negative) 09/25/16 21:50 Urine WBC (Auto) 4 /hpf (0-5) 09/25/16 21:50 Urine RBC (Auto) 2 /hpf (0-3) 09/25/16 21:50 Ur Squamous Epith Cells 1 /hpf (0-5) 09/25/16 21:50 Urine Bacteria Rare (<OCC) 09/25/16 21:50 Stool Leukocytes, Qual Positive (NEGATIVE) H 09/26/16 01:34 C. difficile Ag & Toxin Negative (NEGATIVE) 09/26/16 01:34 Discharge Plan - Discharge Medications Prescriptions: Lisinopril [Zestril] 5 mg PO DAILY #30 tab MetFORMIN [glucoPHAGE] 1,000 mg PO BID #60 tab Simvastatin 20 mg PO DAILY #30 tablet - Follow Up Plan Condition: IMPROVED Disposition: HOME/ ROUTINE Instructions: Lisinopril (By mouth), Simvastatin (By mouth), Metformin (By mouth), Diabetes Mellitus Type 1 in Adults (DC), Diabetes Mellitus Type 2 in Adults (DC), Acute Diarrhea (GEN) Additional Instructions: Patient is stable for discharge home. Patient is to follow up in the [facility] within one week of discharge. He is to call to make an appointment. Patient is to take the following medications: Aspirin 81mg one by mouth daily - over the counter Fish oil daily - over the counter Probiotic - over the counter Lisinopril 5mg one by mouth daily Metformin 1000mg one by mouth daily Simvastatin 20mg one by mouth at bedtime Patient is to check his sugars 4 times a day and create a log of his sugars to bring to his follow up appointment. Patient is to return to the emergency room if symptoms return. All instructions explained to the patient and he agrees. Referrals: [facility] at [facility] [Outside] Attending/Attestation - Attestation I have personally seen and examined this patient.: Yes I have fully participated in the care of the patient.: Yes I have reviewed all pertinent clinical information, including history, physical exam and plan: Yes Notes (Text): Patient seen, examined and case discussed with day-time resident. Patient seen by nurse advocate this morning. Patient reports stool is becoming more formed. Had one bowel movement this morning. Discussed with GI, likely viral gastroenteritis. Stopped antibiotics. Recommended to follow-up outpatient for screening colonoscopy. Patient is medically stable for discharge. Patient recommended to establish care at the [facility] [place] for follow-up from the hospital and further diabetic management. Upon discharge, patient recommended the followin) Aspirin 81mg one by mouth daily - over the counter (protect the heart, diabetes is a risk factor for heart attack, discussed with patient) 2) OTC [place] 3 FA daily - over the counter 3) Probiotic - over the counter 4) Lisinopril 5mg one by mouth daily (30 pills/no refills) 5) Metformin 1000mg one by mouth daily (60 pills/no refills) 6) Simvastatin 20mg one by mouth at bedtime (30 pills/no refills) Patient is to check his sugars 4 times a day and create a log of his sugars to bring to his follow up appointment. Patient is to return to the emergency room if symptoms return. Patient provided information by GI for follow-up to schedule for outpatient colonoscopy. All instructions explained to the patient and he agrees. This is a summary of patient's hospitalization. Please review EMR for further details. Assessment/Plan 1. Diarrhea * GI consult. Vel/Barbara. recs appreciated. * Stool studies -Stool leukocytes positive; C. dif negative * Stool becoming more formed and less frequent per discussion with patient * No antibiotics; viral gastroenteritis 2. Dehydration * patient appears hydrated and reports less diarrhea * Will discontinue IV fluids 3. Uncontrolled diabetes * [id number]: 9.0 * Accuchecks QAC and HS * novolog medium dose sliding scale * Lisinopril 5mg PO daily * tour sales representative visited patient today-->help appreciated * Upon discharge: patient recommended the followin) Metformin 1000mg PO bid , 2)Simvastatin 20mg POqHS, 3) Lisinopril 5mg PO qdaily; and to create sugar diary to bring to his follow-up appointment for further diabetic management; patient advised he will need annual screening exams given uncontrolled diabetes can lead to other problems including but not limited to: heart attack, stroke, blindness, kidney problems, and amputations 4. Hypertension * Lisinopril 5 mg po daily * Monitor vital signs * Controlled 5. Low HDL * will recommend OTC fish oil upon discharge 6. Tachycardia * likely due to dehydration * normalized * Thyroid studies within normal 7. Prophylaxis * SCDs b/l * Heparin 5000 U SC Q12h for DVT ppx * Protonix 40 mg po daily for GI ppx * [facility] referral-->help appreciated * PT eval-->not a candidate <Brittni Delacruz - Last Filed: 09/30/16 15:22> Provider - Provider Date of Admission: 09/25/16 23:01 Attending physician: Misa Stark DO Primary care physician: none Consults: Dr. Crowder - GI Time Spent in preparation of Discharge (in minutes): 35 Diagnosis - Discharge Diagnosis (1) Diarrhea Status: Acute Comment: Resolved. Will need screening colonoscopy (2) Uncontrolled diabetes mellitus Status: Acute Comment: Lisinoprl, Metformin, Aspirin, Simvastatin. Check sugars daily. f/u [facility] Hospital Course - Lab Results Lab Results: Most Recent Lab Values WBC 8.7 K/uL (4.8-10.8) 09/27/16 07:03 RBC 4.76 Mil/uL (4.40-5.90) 09/27/16 07:03 Hgb 10.3 g/dL (12.0-18.0) L 09/27/16 07:03 Hct 32.3 % (35.0-51.0) L 09/27/16 07:03 MCV 67.9 fL (80.0-94.0) L 09/27/16 07:03 MCH 21.6 pg (27.0-31.0) L 09/27/16 07:03 MCHC 31.8 g/dL (33.0-37.0) L 09/27/16 07:03 RDW 18.0 % (11.5-14.5) H 09/27/16 07:03 Plt Count 199 K/uL (130-400) 09/27/16 07:03 MPV 9.3 fL (7.2-11.7) 09/27/16 07:03 Neut % (Auto) 71.6 % (50.0-75.0) 09/27/16 07:03 Lymph % (Auto) 14.6 % (20.0-40.0) L 09/27/16 07:03 Irwin % (Auto) 13.0 % (0.0-10.0) H 09/27/16 07:03 Eos % (Auto) 0.6 % (0.0-4.0) 09/27/16 07:03 Baso % (Auto) 0.2 % (0.0-2.0) 09/27/16 07:03 Neut # 6.2 K/uL (1.8-7.0) 09/27/16 07:03 Lymph # 1.3 K/uL (1.0-4.3) 09/27/16 07:03 Irwin # 1.1 K/uL (0.0-0.8) H 09/27/16 07:03 Eos # 0.0 K/uL (0.0-0.7) 09/27/16 07:03 Baso # 0.0 K/uL (0.0-0.2) 09/27/16 07:03 Neutrophils % (Manual) 86 % (50-75) H 09/25/16 22:01 Band Neutrophils % 1 % (0-2) 09/25/16 22:01 Lymphocytes % (Manual) 6 % (20-40) L 09/25/16 22:01 Monocytes % (Manual) 7 % (0-10) 09/25/16 22:01 Platelet Estimate Normal (NORMAL) 09/25/16 22:01 Polychromasia Slight 09/25/16 22:01 Hypochromasia (manual) Slight 09/25/16 22:01 Anisocytosis (manual) Slight 09/25/16 22:01 Microcytosis (manual) Slight 09/25/16 22:01 Ovalocytes Slight 09/25/16 22:01 PT 14.4 SECONDS (9.7-12.2) H 09/27/16 07:03 INR 1.3 09/27/16 07:03 APTT 33 SECONDS (21-34) 09/27/16 07:03 Sodium 129 mmol/L (132-148) L 09/27/16 07:03 Potassium 4.9 mmol/L (3.6-5.2) 09/27/16 07:03 Chloride 95 mmol/L (98-107) L 09/27/16 07:03 Carbon Dioxide 28 mmol/L (22-30) 09/27/16 07:03 Anion Gap 11 (10-20) 09/27/16 07:03 BUN 11 mg/dL (9-20) 09/27/16 07:03 Creatinine 0.8 MG/DL (0.8-1.5) 09/27/16 07:03 Est GFR ( Amer) > 60 09/27/16 07:03 Est GFR (Non-Af Amer) > 60 09/27/16 07:03 POC Glucose (mg/dL) 319 mg/dL (65-110) H 09/27/16 11:26 Random Glucose 341 mg/dL (75-110) H 09/27/16 07:03 Hemoglobin A1c 9.0 % (4.2-6.5) H 09/26/16 07:53 Calcium 7.4 mg/dl (8.6-10.4) L 09/27/16 07:03 Phosphorus 3.1 mg/dL (2.5-4.5) 09/27/16 07:03 Magnesium 1.8 mg/dL (1.6-2.3) 09/27/16 07:03 Total Bilirubin 0.8 mg/dL (0.2-1.3) 09/27/16 07:03 AST 13 U/L (17-59) L 09/27/16 07:03 ALT 16 U/L (21-72) L 09/27/16 07:03 Alkaline Phosphatase 82 U/L (38-126) 09/27/16 07:03 Total Protein 5.5 g/dL (6.3-8.3) L 09/27/16 07:03 Albumin 2.5 g/dL (3.5-5.0) L 09/27/16 07:03 Globulin 3.0 gm/dL (2.2-3.9) 09/27/16 07:03 Albumin/Globulin Ratio 0.8 (1.0-2.1) L 09/27/16 07:03 Triglycerides 115 mg/dL (0-149) 09/26/16 07:53 Cholesterol 135 mg/dL (0-199) 09/26/16 07:53 LDL Cholesterol Direct 79 mg/dL (0-129) 09/26/16 07:53 HDL Cholesterol 31 mg/dL (30-70) 09/26/16 07:53 Lipase 53 U/L (23-300) 09/25/16 22:01 Free T4 1.78 ng/dL (0.78-2.19) 09/26/16 07:53 TSH 3rd Generation 0.56 mIU/L (0.46-4.68) 09/26/16 07:53 Urine Color Isabel (YELLOW) 09/25/16 21:50 Urine Clarity Hazy (Clear) 09/25/16 21:50 Urine pH 5.0 (5.0-8.0) 09/25/16 21:50 Ur Specific [place] 1.028 (1.003-1.030) 09/25/16 21:50 Urine Protein 2+ mg/dL (NEGATIVE) H 09/25/16 21:50 Urine Glucose (UA) 3+ mg/dL (Normal) H 09/25/16 21:50 Urine Ketones Trace mg/dL (NEGATIVE) 09/25/16 21:50 Urine Blood Negative (NEGATIVE) 09/25/16 21:50 Urine Nitrate Negative (NEGATIVE) 09/25/16 21:50 Urine Bilirubin Negative (NEGATIVE) 09/25/16 21:50 Urine Urobilinogen 4.0 mg/dL (0.2-1.0) 09/25/16 21:50 Ur Leukocyte Esterase Neg Ana/uL (Negative) 09/25/16 21:50 Urine WBC (Auto) 4 /hpf (0-5) 09/25/16 21:50 Urine RBC (Auto) 2 /hpf (0-3) 09/25/16 21:50 Ur Squamous Epith Cells 1 /hpf (0-5) 09/25/16 21:50 Urine Bacteria Rare (<OCC) 09/25/16 21:50 Stool Leukocytes, Qual Positive (NEGATIVE) H 09/26/16 01:34 C. difficile Ag & Toxin Negative (NEGATIVE) 09/26/16 01:34 - Hospital Course Hospital Course: On Admission: Patient is a 66 year old male with medical history of diabetes mellitus who presents to the emergency department for multiple episodes of diarrhea. Patient reports the diarrhea started 10 days ago. He states he would experience episodes of diarrhea every two hours. Patient states bowel movements were [id number] in color and foul smelling. His last episode of diarrhea was this afternoon. He denies fever, chills, abdominal pain, hematochezia, sick contacts or recent travel. Patient also admits to one episode of clear emesis after drinking water. Patient reports loss of balance with walking and states he fell to the ground while washing his hands in the bathroom 10 days ago. He denies loss of consciousness and recurrent episodes. Patient was noted to be hyperglycemic in emergency department with random glucose of 404. Patient reports he was diagnosed with diabetes in 1999. He does not follow-up with a primary care physician. Patient states he gets insulin from [employer] without a prescription and typically takes 15 units of Insulin twice daily. He does not check his sugar with a glucometer. He states he has been suffering from dry mouth but denies polydipsia and polyuria. Patient also denies chest pain, shortness of breath at rest or with exertion, palpitations, vision changes, cough, headache, weight loss, dysuria, lower extremity swelling, pain or paresthesias. During hospital stay: Patient had a slighlty elevated white count. He was positive for stool leukocytes but negative for C.diff infection. He was dehydration and was given IV fluids. The diarrhea resolved during his stay. GI was consulted and stated that there was no need for antibiotics treatment but that the patient should schedule a colonoscopy to be done outpatient. He has never had one in the past. Patient was noted to be anemic. Patients A1c was noted to be 9. He was using Insulin at home and checking his sugars. He has never tried oral medications. He was started on Metformin. Patient was also given lisinopril to control his high blood pressure. He also had low LDL and was instructed to take fish oil OTC upon discharge. Patient is stable for discharge home. Patient is to follow up in the [facility] within one week of discharge. He is to call to make an appointment. Patient is to take the following medications: Aspirin 81mg one by mouth daily - over the counter Fish oil daily - over the counter Probiotic - over the counter Lisinopril 5mg one by mouth daily Metformin 1000mg one by mouth twice a day. Simvastatin 20mg one by mouth at bedtime Patient is to check his sugars 4 times a day and create a log of his sugars to bring to his follow up appointment. Patient is to return to the emergency room if symptoms return. All instructions explained to the patient and he agrees. Patient will need GI referral for outpatient colonoscopy. Discharge Exam - Head Exam Head Exam: ATRAUMATIC, NORMAL INSPECTION, NORMOCEPHALIC - Eye Exam Eye Exam: EOMI, Normal appearance, PERRL Pupil Exam: NORMAL ACCOMODATION - Neck Exam Neck exam: Normal Inspection - Respiratory Exam Respiratory Exam: Clear to PA & Lateral, NORMAL BREATHING PATTERN. absent: Accessory Muscle Use, Rales, Rhonchi, Wheezes, Respiratory Distress - Cardiovascular Exam Cardiovascular Exam: REGULAR RHYTHM, +S1, +S2 - GI/Abdominal Exam GI & Abdominal Exam: Soft. absent: Distended, Firm, Guarding, Tenderness - Extremities Exam Extremities exam: normal inspection - Back Exam Back exam: NORMAL INSPECTION - Neurological Exam Neurological exam: Alert, CN II-XII Intact, Normal Gait, Oriented x3 - Psychiatric Exam Psychiatric exam: Normal Affect, Normal Mood - Skin Skin Exam: Intact, Normal Color, Warm
[2016-09-28] MEDS ORDERED: Pneumococcal 23-Valent Vaccine IM ONE (10:00)
--- NOTE | 2016-10-14 14:34 | CARD ---
APPROVED REPORT EKG Measurement Heart [id number] <Conclusion> Normal sinus rhythm Left axis deviation Minimal voltage criteria for LVH, may be normal variant Nonspecific ST and T wave abnormality vs artifacts Abnormal ECG
== END 2016-09-27 16:45 | disposition home or self-care (01) | DRG 392 ==
LOC: C.ER 21:18 → C.9E 23:01 → C.3T 09-26 01:00
PROVIDERS: ADMIT Hospitalist; ATTEND Hospitalist
DX: R19.7 Diarrhea, unspecified (principal); E11.65 Type 2 diabetes mellitus with hyperglycemia; I10 Essential (primary) hypertension; E86.0 Dehydration; D64.9 Anemia, unspecified; R00.0 Tachycardia, unspecified; Z87.891 Personal history of nicotine dependence

== ENCOUNTER 2016-10-14 09:54 | Inpatient (IN) | payer OTHER ==
[2016-10-14 10:05] VITALS: BMI 25.0
[2016-10-14 10:37] LABS: BASO # 0.1 K/uL (0.0-0.2); BASO % 0.3 % (0.0-2.0); EOS % 0.1 % (0.0-4.0); HEMATOCRIT 32.8 % (35.0-51.0); LYMPH # 0.8 K/uL (1.0-4.3); LYMPH % 4.7 % (20.0-40.0); MEAN CELL VOLUME 67.2 fL (80.0-94.0); MEAN CORPUSCULAR HEMOGLOBIN 21.1 pg (27.0-31.0); MEAN CORPUSCULAR HGB CONC 31.3 g/dL (33.0-37.0); MEAN PLATELET VOLUME 7.9 fL (7.2-11.7); MONO # 0.9 K/uL (0.0-0.8); MONO % 5.8 % (0.0-10.0); PLATELET COUNT 327 K/uL (130-400); RED CELL DISTRIBUTION WIDTH 17.6 % (11.5-14.5); WHITE BLOOD COUNT 16.3 K/uL (4.8-10.8)
[2016-10-14 10:52] LABS: CHLORIDE 96 mmol/L (98-107); SODIUM 133 mmol/L (132-148)
--- NOTE | 2016-10-14 10:54 | RAD ---
HISTORY: Syncope COMPARISON: No prior. TECHNIQUE: Chest PA and lateral FINDINGS: LINES AND TUBES: None. HEART AND MEDIASTINUM: The heart is not enlarged. The hilar and mediastinal contours are within normal limits. LUNGS AND PLEURA: The lungs are clear. There are no pleural effusions or pneumothorax. SKELETAL STRUCTURES: The bony structures are within normal limits for the patient's age. VISUALIZED UPPER ABDOMEN: Normal. OTHER FINDINGS: None. IMPRESSION: No acute findings.
[2016-10-14 10:55] LABS: ALB/GLOB RATIO 0.8 (1.0-2.1); ALKALINE PHOSPHATASE 140 U/L (38-126); ALT/SGPT 25 U/L (21-72); AST/SGOT 53 U/L (17-59); BILIRUBIN,TOTAL 0.7 mg/dL (0.2-1.3); BLOOD UREA NITROGEN 16 mg/dL (9-20); CARBON DIOXIDE 26 mmol/L (22-30); GFR AFRICAN-AMERICAN > 60
[2016-10-14 10:56] LABS: CALCIUM 8.4 mg/dl (8.6-10.4)
[2016-10-14 10:59] LABS: TOTAL CELLS COUNTED 100
[2016-10-14 11:02] LABS: NEUTROPHIL 85 % (50-75)
--- NOTE | 2016-10-14 11:10 | C.PDOC ---
History Of Present Illness 66 y/o male presents to the ED stating he was walking around in his home this morning when he suddenly found himself on the floor. Pt denies chest pain or SOB prior to the event, denies head injury. Pt denies similar experience in the past. Denies fever, cough, chills, vomiting or any other complaints. No recent travel. Does not have PMD, hasn't been evaluated in several years. Chief Complaint (Nursing): Syncope History Per: Patient History/Exam Limitations: no limitations Current Symptoms Are (Timing): Gone Activity At Onset Of Symptoms: Walking Associated Symptoms Preceding Syncopal Episode: No Predromal Symptoms (Sudden Onset) Seizure Or Post-ictal Symptoms: None Fall Associated With With Symptoms: Yes Severity: Mild Recent travel outside of the [place]: No - Symptoms Of CVA Recent Head Trauma: No Past Medical History Reviewed: Historical Data, Nursing Documentation, Vital Signs Vital Signs: Last Vital Signs Temp 98.3 F 10/16/16 23:20 Pulse 103 H 10/16/16 23:20 Resp 20 10/16/16 23:20 BP 129/78 10/16/16 23:20 Pulse Ox 96 10/16/16 23:20 Family History: States: Unknown Family Hx - Social History Hx Alcohol Use: No Hx Substance Use: No - Immunization History Hx Tetanus Toxoid Vaccination: No Hx Influenza Vaccination: No Hx Pneumococcal Vaccination: No Review Of Systems Except As Marked, All Systems Reviewed And Found Negative. Constitutional: Negative for: Fever, Chills Cardiovascular: Negative for: Chest Pain Respiratory: Negative for: Cough, Shortness of Breath Gastrointestinal: Negative for: Vomiting Neurological: Positive for: Other (syncope) Physical Exam - Physical Exam Appears: Non-toxic, No Acute Distress Skin: Warm, Dry, No Rash Head: Atraumatic, Normacephalic, No Swelling, No Abrasion, No Laceration Eye(s): bilateral: Normal Inspection, PERRL, EOMI Neck: Normal, Normal ROM, Supple Chest: Symmetrical, No Tenderness Cardiovascular: Rhythm Regular, No Murmur Respiratory: Normal Breath Sounds, No Rales, No Rhonchi, No Wheezing Gastrointestinal/Abdominal: Normal Exam, Soft, No Tenderness Extremity: Normal ROM, Capillary Refill (<2 seconds), No Deformity, Other ( dorsal aspect left hand with mild swelling and tenderness) Pulses: Left Radial: Normal Neurological/Psych: Oriented x3, Normal Speech, Normal Cognition, Normal Motor, Normal Sensation ED Course And Treatment - Laboratory Results Result Diagrams: 10/16/16 09:25 10/16/16 09:25 ECG: Interpreted By Me, Viewed By Me ECG Rhythm: Sinus Rhythm ECG Interpretation: Normal Rate From EC (BPM) O2 Sat by Pulse Oximetry: 99 (room air) Pulse Ox Interpretation: Normal - Radiology CXR: Viewed By Me, Read By Radiologist CXR Interpretation: Yes: No Acute Disease - CT Scan/US CT - Head Other Rad Studies (CT/US): Read By Radiologist, Radiology Report Reviewed CT/US Interpretation: PROCEDURE: CT HEAD WITHOUT CONTRAST. HISTORY: syncope. COMPARISON: None available. TECHNIQUE: Axial computed tomography images were obtained through the head/brain without intravenous contrast. Radiation dose: Total exam DLP = 888.73 mGy-cm. This CT exam was performed using one or more of the following dose reduction techniques: Automated exposure control, adjustment of the mA and/or kV according to patient size, and/or use of iterative reconstruction technique. FINDINGS: HEMORRHAGE: No intracranial hemorrhage. BRAIN: Diffuse atrophy with prominence of the ventricles and sulci noted. No mass effect or edema. Intracranial atherosclerotic calcifications. Asymmetry within the left middle cranial fossa which raises possibility of arachnoid cyst versus encephalomalacia or atrophy. Scattered periventricular and subcortical white matter hypodensities, which are nonspecific, but often seen with chronic microvascular ischemic disease. Please note that MRI with diffusion imaging is more sensitive in the detection of acute ischemic event. VENTRICLES: No hydrocephalus. CALVARIUM: Unremarkable. PARANASAL SINUSES: Unremarkable as visualized. No significant inflammatory changes. MASTOID AIR CELLS: Unremarkable as visualized. No inflammatory changes. OTHER FINDINGS: None. IMPRESSION: No acute intracranial pathology identified. Asymmetry within the left middle cranial fossa which raises possibility of arachnoid cyst versus encephalomalacia or atrophy. Additional nonspecific white matter changes. Generalized atrophy. Medical Decision Making Medical Decision Making: Plan: * CT head * EKG * CXR * XR left hand * labs * UA * IV fluids Discussed case with hospitalist Dr Cai, will admit to service. Disposition - Disposition Disposition: HOSPITALIZED Disposition Time: 12:00 Condition: STABLE - Clinical Impression Clinical Impression: Syncope - Scribe Statement The provider has reviewed the documentation as recorded by the Maranda Nieves Provider Attestation: All medical record entries made by the Scribe were at my direction and personally dictated by me. I have reviewed the chart and agree that the record accurately reflects my personal performance of the history, physical exam, medical decision making, and the department course for this patient. I have also personally directed, reviewed, and agree with the discharge instructions and disposition.
[2016-10-14 11:23] LABS: GLUCOSE,RANDOM 56 mg/dL (75-110)
[2016-10-14 11:27] LABS: THYROID STIMULATING HORMONE 0.84 mIU/L (0.46-4.68)
--- NOTE | 2016-10-14 11:35 | CT ---
PROCEDURE: CT HEAD WITHOUT CONTRAST. HISTORY: syncope COMPARISON: None available. TECHNIQUE: Axial computed tomography images were obtained through the head/brain without intravenous contrast. Radiation dose: Total exam DLP = 888.73 mGy-cm. This CT exam was performed using one or more of the following dose reduction techniques: Automated exposure control, adjustment of the mA and/or kV according to patient size, and/or use of iterative reconstruction technique. FINDINGS: HEMORRHAGE: No intracranial hemorrhage. BRAIN: Diffuse atrophy with prominence of the ventricles and sulci noted. No mass effect or edema. Intracranial atherosclerotic calcifications. Asymmetry within the left middle cranial fossa which raises possibility of arachnoid cyst versus encephalomalacia or atrophy. Scattered periventricular and subcortical white matter hypodensities, which are nonspecific, but often seen with chronic microvascular ischemic disease. Please note that MRI with diffusion imaging is more sensitive in the detection of acute ischemic event. VENTRICLES: No hydrocephalus. CALVARIUM: Unremarkable. PARANASAL SINUSES: Unremarkable as visualized. No significant inflammatory changes. MASTOID AIR CELLS: Unremarkable as visualized. No inflammatory changes. OTHER FINDINGS: None. IMPRESSION: No acute intracranial pathology identified. Asymmetry within the left middle cranial fossa which raises possibility of arachnoid cyst versus encephalomalacia or atrophy. Additional nonspecific white matter changes. Generalized atrophy.
--- NOTE | 2016-10-14 12:03 | RAD ---
PROCEDURE: Left Hand Radiographs. HISTORY: r/o fx COMPARISON: None available. FINDINGS: BONES: No acute displaced fracture. JOINTS: No dislocation. SOFT TISSUES: No evidence of radiopaque foreign body. OTHER FINDINGS: None. IMPRESSION: No acute displaced fracture, dislocation, or significant joint effusion identified. If symptoms persist, or if there is continued clinical concern, x-ray follow-up in 7-10 days should be considered.
[2016-10-14] MEDS ORDERED: Dextrose 50% SYRINGE Inj (50 ml) IV STA (12:48)
--- NOTE | 2016-10-14 15:34 | CP.PCM.HP ---
<Hilaria Srinivasan - Last Filed: 10/14/16 15:31> History of Present Illness - History of Present Illness History of Present Illness: CC: "I fell" HPI: Patient is a 66 y/o male w/ past medical history of Diabetes Mellitus type II (diagnosed in 1999) and hypertension presenting with recent fall, excessive sweating, and lethargy. He states that when he awoke, he went to the bathroom and suddenly fell. The patient reported another fall during his last admission as well. He denies any excessive trauma and says that the impact was braced by his left wrist and forearm, which appear to be mildly swollen. Upon returning to bed, the patient states that he hit the back of his head when lying down too abruptly. The patient's friend called him and the patient requested to be taken to the hospital because he felt like "something was wrong ". He was noted to be severely hypoglycemic in the emergency room with a random glucose of 29 on admission. On further questioning, the patient states that he has been taking both metformin AND ~20-40 units of Insulin 70/30 twice daily since his last hospitalization about 2 weeks ago. According to his last hospital discharge, the patient was instructed to stop taking insulin and only take Metformin 1000 mg po daily. Patient states he gets his insulin from [facility] without a prescription and that he does not follow-up with a primary care physician but was scheduled to follow-up and establish care at the [facility] this Friday. Patient is compliant with checking his sugars using a glucometer. He adds that his blood sugars were in the 50s yesterday, in the 140s last night, and 29 today on admission. He adds that he has also experienced some penile pain/discomfort on contact with his clothing.The patient reports feelings of depression, dry mouth, diarrhea, mild RLQ abdominal pain, and urinary frequency. The patient denies fever/chills, chest pain, cough, hematochezia, and dysuria. PMH: Diabetes Mellitus type II, hypertension, Hyperlipidemia, low HDL Medications: Metformin 1000 mg po daily, Lisinopril 5 mg po daily, Simvastatin 20 mg po HS, Aspirin 81 mg po daily, [place] 3 Fish Oil over the counter Allergies: NKDA Family history: Father - Type 2 Diabetes Mellitus. Mother - from brain tumor. Surgical history: Questionable appendectomy Hospitalizations: Recently hospitalized (~2 weeks ago) for diarrhea. Social history: The patient currently lives alone. Denies tobacco, alcohol, and illicit drug use. 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 Present on Admission - Present on Admission Any Indicators Present on Admission: No History of DVT/PE: No History of Uncontrolled Diabetes: Yes Urinary Catheter: No Decubitus Ulcer Present: No Review of Systems - Constitutional Constitutional: Chills, Excessive Sweating, Fatigue, Fever, Lethargy. absent: Headache - EENT Eyes: absent: Blurred Vision, Change in Vision Ears: absent: Ear Discharge, Ear Pain Nose/Mouth/Throat: absent: Nasal Congestion, Nasal Discharge - Cardiovascular Cardiovascular: Lightheadedness, Syncope. absent: Chest Pain, Chest Pain with Activity, Dyspnea, Dyspnea on Exertion, Leg Edema, Palpitations - Respiratory Respiratory: absent: Cough, Dyspnea, Hemoptysis, Wheezing, Chest Congestion, Pain with Coughing - Gastrointestinal Gastrointestinal: Abdominal Pain, Diarrhea. absent: Constipation, Hematochezia , Melena, Nausea, Vomiting - Genitourinary Genitourinary: Urinary Frequency. absent: Dysuria, Flank Pain - Musculoskeletal Musculoskeletal: absent: Arthralgias, Back Pain - Integumentary Integumentary: absent: Changing Lesions, New Lesions - Neurological Neurological: Frequent Falls, Syncope. absent: Confusion, Dizziness, Focal Weakness - Psychiatric Psychiatric: Depression Past Patient History - Past Medical History & Family History Past Medical History?: No - Past Social History Smoking Status: Never Smoked - CARDIAC Hx Cardiac Disorders: No - PULMONARY Hx Respiratory Disorders: No - NEUROLOGICAL Hx Neurological Disorder: No - HEENT Hx HEENT Problems: No - RENAL Hx Chronic Kidney Disease: No - ENDOCRINE/METABOLIC Hx Diabetes Mellitus Type 2: Yes - HEMATOLOGICAL/ONCOLOGICAL Hx Blood Disorders: No Hx Blood Transfusions: No - INTEGUMENTARY Hx Dermatological Problems: No - MUSCULOSKELETAL/RHEUMATOLOGICAL Hx Falls: Yes - GASTROINTESTINAL Hx Gastrointestinal Disorders: No - GENITOURINARY/GYNECOLOGICAL Hx Genitourinary Disorders: No - PSYCHIATRIC Hx Substance Use: No - SURGICAL HISTORY Hx Surgeries: Yes - ANESTHESIA Hx Anesthesia: Yes Hx Anesthesia Reactions: No Hx Malignant Hyperthermia: No Has any member of the family had a problem w/ anesthesia?: No Meds Allergies/Adverse Reactions: Allergies Allergy/AdvReac Type Severity Reaction Status Date / Time No Known Allergies Allergy Verified 10/14/16 10:24 Physical Exam - Constitutional Appears: Non-toxic, No Acute Distress - Head Exam Head Exam: ATRAUMATIC, NORMAL INSPECTION, NORMOCEPHALIC - Eye Exam Eye Exam: EOMI, Normal appearance, PERRL - ENT Exam ENT Exam: Mucous Membranes Moist, Normal Exam, Normal Oropharynx - Neck Exam Neck exam: Positive for: Full Rom, Normal Inspection. Negative for: Lymphadenopathy - Respiratory Exam Respiratory Exam: Decreased Breath Sounds, Clear to Auscultation Bilateral. absent: Rales, Rhonchi, Wheezes Additional comments: decreased breath sounds on right - Cardiovascular Exam Cardiovascular Exam: +S1, +S2. absent: Bradycardia, Tachycardia - GI/Abdominal Exam GI & Abdominal Exam: Normal Bowel Sounds, Soft. absent: Distended, Firm, Guarding, Tenderness - Extremities Exam Extremities exam: Positive for: full ROM, normal inspection, pedal pulses present. Negative for: pedal edema, tenderness - Back Exam Back exam: NORMAL INSPECTION. absent: FULL ROM, rash noted, tenderness - Neurological Exam Neurological exam: Alert, CN II-XII Intact, Oriented x3 - Psychiatric Exam Psychiatric exam: Normal Affect, Normal Mood - Skin Skin Exam: Intact, Normal Color Additional comments: onychomycosis to toenails scale in moccasin distribution to soles of feet Results - Vital Signs Recent Vital Signs: Last Vital Signs Temp 97.5 F L 10/14/16 14:38 Pulse 93 H 10/14/16 14:38 Resp 18 10/14/16 14:38 BP 130/82 10/14/16 14:38 Pulse Ox 99 10/14/16 14:52 - Labs Result Diagrams: 10/14/16 10:34 10/14/16 10:34 Labs: Laboratory Results - last 24 hr 10/14/16 10/14/16 12:41 13:15 POC Glucose (mg/dL) 29 L* 193 H Assessment & Plan - Assessment and Plan (Free Text) Assessment: Syncope likely secondary to hypoglycemia Random glucose of 29 -->56 Given D50 IV in ED Monitor sugars CT Head: No acute intracranial pathology identified. Asymmetry within the left middle cranial fossa which raises possibility of arachnoid cyst versus encephalomalacia or atrophy. Additional nonspecific white matter changes. Generalized atrophy. Hand X-Ray: No acute displaced fracture, dislocation, or significant joint effusion identified. Troponin I, 0.0120 f/u Echocardiogram Leukocytosis WBC 16.3, Bands 8, Neuts 85% Afebrile CXR: no active dz f/u blood cx x2, urinalysis and urine cx, stool studies, c. diff Start Rocephin 1 gm IVPB q24h Monitor Diabetes Mellitus type II Metformin 1000 mg po daily held hemoglobin a1c on previous admission 9.0 Start RISS Accuchecks Monitor Hypertension Continue home medication Lisinopril 5 mg po daily Monitor Hyperlipidemia Home medication Simvastatin 20 mg po HS -NF Crestor 5 mg po HS Prophylaxis SCD Pepcid 20 mg po daily Heart Healthy Diet - Date & Time Date: 10/14/16 Time: 15:57 <Abdiel Cai H - Last Filed: 10/15/16 13:20> Results - Vital Signs Recent Vital Signs: Last Vital Signs Temp 98.9 F 10/15/16 07:10 Pulse 91 H 10/15/16 07:10 Resp 18 10/15/16 07:10 BP 110/71 10/15/16 07:10 Pulse Ox 96 10/15/16 07:10 - Labs Result Diagrams: 10/15/16 08:23 10/15/16 08:23 Labs: Laboratory Results - last 24 hr 10/14/16 10/14/16 10/14/16 17:13 20:38 21:24 WBC RBC Hgb Hct MCV MCH MCHC RDW Plt Count MPV Neut % (Auto) Lymph % (Auto) [place] % (Auto) Eos % (Auto) Baso % (Auto) Neut # Lymph # [place] # Eos # Baso # Sodium Potassium Chloride Carbon Dioxide Anion Gap BUN Creatinine Est GFR ( Amer) Est GFR (Non-Af Amer) POC Glucose (mg/dL) 78 150 H Random Glucose Calcium Total Bilirubin AST ALT Alkaline Phosphatase Total Protein Albumin Globulin Albumin/Globulin Ratio Urine Color Yellow Urine Clarity Hazy Urine pH 6.0 Ur Specific [place] 1.008 Urine Protein Negative Urine Glucose (UA) Normal Urine Ketones Negative Urine Blood Negative Urine Nitrate Negative Urine Bilirubin Negative Urine Urobilinogen 4.0 Ur Leukocyte Esterase 3+ H Urine WBC (Auto) 18 H Urine RBC (Auto) 1 Ur Squamous Epith Cells < 1 Urine Bacteria Many H 10/15/16 10/15/16 10/15/16 06:42 07:08 08:23 WBC 10.1 RBC 4.42 Hgb 9.4 L Hct 29.8 L MCV 67.4 L MCH 21.2 L MCHC 31.5 L RDW 17.9 H Plt Count 253 MPV 8.3 Neut % (Auto) 77.0 H Lymph % (Auto) 12.5 L [place] % (Auto) 9.5 Eos % (Auto) 0.6 Baso % (Auto) 0.4 Neut # 7.8 H Lymph # 1.3 [place] # 1.0 H Eos # 0.1 Baso # 0.0 Sodium Potassium Chloride Carbon Dioxide Anion Gap BUN Creatinine Est GFR ( Amer) Est GFR (Non-Af Amer) POC Glucose (mg/dL) 61 L 101 Random Glucose Calcium Total Bilirubin AST ALT Alkaline Phosphatase Total Protein Albumin Globulin Albumin/Globulin Ratio Urine Color Urine Clarity Urine pH Ur Specific [place] Urine Protein Urine Glucose (UA) Urine Ketones Urine Blood Urine Nitrate Urine Bilirubin Urine Urobilinogen Ur Leukocyte Esterase Urine WBC (Auto) Urine RBC (Auto) Ur Squamous Epith Cells Urine Bacteria 10/15/16 10/15/16 08:23 11:43 WBC RBC Hgb Hct MCV MCH MCHC RDW Plt Count MPV Neut % (Auto) Lymph % (Auto) [place] % (Auto) Eos % (Auto) Baso % (Auto) Neut # Lymph # [place] # Eos # Baso # Sodium 134 Potassium 3.8 Chloride 99 Carbon Dioxide 25 Anion Gap 13 BUN 10 Creatinine 0.6 L Est GFR ( Amer) > 60 Est GFR (Non-Af Amer) > 60 POC Glucose (mg/dL) 301 H Random Glucose 95 Calcium 7.9 L Total Bilirubin 0.6 AST 35 ALT 27 Alkaline Phosphatase 114 Total Protein 5.9 L Albumin 2.5 L Globulin 3.5 Albumin/Globulin Ratio 0.7 L Urine Color Urine Clarity Urine pH Ur Specific [place] Urine Protein Urine Glucose (UA) Urine Ketones Urine Blood Urine Nitrate Urine Bilirubin Urine Urobilinogen Ur Leukocyte Esterase Urine WBC (Auto) Urine RBC (Auto) Ur Squamous Epith Cells Urine Bacteria Attending/Attestation - Attestation I have personally seen and examined this patient.: Yes I have fully participated in the care of the patient.: Yes I have reviewed all pertinent clinical information: Yes
[2016-10-14] MEDS: (Novolog) Insulin Aspart, Recombinant 100 u/ml 10 ml vial SC SCH (16:30)
--- NOTE | 2016-10-14 17:49 | RAD ---
HISTORY: decreased breath sounds on right COMPARISON: 10/14/2016 TECHNIQUE: Chest PA and lateral FINDINGS: LUNGS: No active pulmonary disease. PLEURA: No significant pleural effusion identified. No pneumothorax apparent. CARDIOVASCULAR: No radiographic findings to suggest acute or significant cardiovascular disease. OSSEOUS STRUCTURES: No significant abnormalities. VISUALIZED UPPER ABDOMEN: Normal. OTHER FINDINGS: None. IMPRESSION: No active disease. No significant interval change compared to the prior examination(s).
[2016-10-14 20:52] LABS: RBC URINE 1 /hpf (0-3); URINE BACTERIA MANY (<OCC); URINE BILIRUBIN NEGATIVE (NEGATIVE); URINE BLOOD NEGATIVE (NEGATIVE); URINE COLOR Yellow (YELLOW); URINE GLUCOSE (UA) NORMAL (Normal); URINE KETONE NEGATIVE (NEGATIVE); URINE LEUKOCYTE ESTERASE 3+ Leu/uL (Negative); URINE PROTEIN NEGATIVE (NEGATIVE); WBC URINE 18 /hpf (0-5)
[2016-10-15] MEDS: (Novolog) Insulin Aspart, Recombinant 100 u/ml 10 ml vial SC SCH (07:30)
[2016-10-15 08:29] LABS: BASO % 0.4 % (0.0-2.0); EOS # 0.1 K/uL (0.0-0.7); EOS % 0.6 % (0.0-4.0); HEMATOCRIT 29.8 % (35.0-51.0); LYMPH # 1.3 K/uL (1.0-4.3); LYMPH % 12.5 % (20.0-40.0); MEAN CELL VOLUME 67.4 fL (80.0-94.0); MEAN CORPUSCULAR HEMOGLOBIN 21.2 pg (27.0-31.0); MEAN CORPUSCULAR HGB CONC 31.5 g/dL (33.0-37.0); MEAN PLATELET VOLUME 8.3 fL (7.2-11.7); MONO % 9.5 % (0.0-10.0); RED CELL DISTRIBUTION WIDTH 17.9 % (11.5-14.5); WHITE BLOOD COUNT 10.1 K/uL (4.8-10.8)
[2016-10-15 08:56] LABS: CHLORIDE 99 mmol/L (98-107); SODIUM 134 mmol/L (132-148)
[2016-10-15 08:57] LABS: POTASSIUM 3.8 mmol/L (3.6-5.2)
[2016-10-15 08:59] LABS: ALB/GLOB RATIO 0.7 (1.0-2.1); ALKALINE PHOSPHATASE 114 U/L (38-126); ALT/SGPT 27 U/L (21-72); AST/SGOT 35 U/L (17-59); BILIRUBIN,TOTAL 0.6 mg/dL (0.2-1.3); BLOOD UREA NITROGEN 10 mg/dL (9-20); CARBON DIOXIDE 25 mmol/L (22-30); GFR AFRICAN-AMERICAN > 60; GLUCOSE,RANDOM 95 mg/dL (75-110); TOTAL PROTEIN 5.9 g/dL (6.3-8.3)
[2016-10-15 09:00] LABS: CALCIUM 7.9 mg/dl (8.6-10.4)
--- NOTE | 2016-10-15 11:19 | CP.PCM.PN ---
<Hilaria Srinivasan - Last Filed: 10/15/16 11:16> Subjective - Date & Time of Evaluation Date of Evaluation: 10/15/16 Time of Evaluation: 11:16 - Subjective Subjective: Patient seen and examined at bedside. He states he is feeling well today and he slept well last night. His blood sugars were in the 70s today morning. Nursing gave the patient orange juice to drink and is planning on rechecking the sugars. He denies any acute complaints. We are currently waiting on a pending urinalysis and stool studies. The patient continues to report watery diarrhea and urinary frequency. The patient denies dizziness, weakness, headache, sweating, cough, and shortness of breath. Objective - Vital Signs/Intake and Output Vital Signs (last 24 hours): Temp Pulse Resp BP Pulse Ox 98.9 F 91 H 18 110/71 96 10/15/16 07:10 10/15/16 07:10 10/15/16 07:10 10/15/16 07:10 10/15/16 07:10 - Medications Medications: Current Medications Famotidine (Pepcid) 20 mg PO DAILY [facility] Last Admin: 10/15/16 09:51 Dose: 20 mg Heparin Sodium (Porcine) (Heparin) 5,000 units SC Q12 [facility] Ceftriaxone Sodium 1 gm/ (Sodium Chloride) 100 mls @ 100 mls/hr IVPB DAILY [facility] Last Admin: 10/15/16 09:51 Dose: 100 mls/hr Lisinopril (Zestril) 5 mg PO DAILY [facility] Last Admin: 10/15/16 09:51 Dose: 5 mg Metformin HCl (Glucophage) 500 mg PO BID [facility] Pneumococcal Polyvalent Vaccine (Pneumovax 23 Vaccine) 0.5 ml IM .ONCE ONE Stop: 10/16/16 10:01 Rosuvastatin Calcium (Crestor) 5 mg PO HS [facility] Last Admin: 10/14/16 21:54 Dose: 5 mg - Labs Labs: 10/15/16 08:23 10/15/16 08:23 - Constitutional Appears: Non-toxic, No Acute Distress - Head Exam Head Exam: ATRAUMATIC, NORMAL INSPECTION, NORMOCEPHALIC - Eye Exam Eye Exam: EOMI, Normal appearance, PERRL - ENT Exam ENT Exam: Mucous Membranes Moist - Neck Exam Neck Exam: Full ROM - Respiratory Exam Respiratory Exam: Clear to Ausculation Bilateral, NORMAL BREATHING PATTERN. absent: Rales, Rhonchi, Wheezes - Cardiovascular Exam Cardiovascular Exam: +S1, +S2. absent: Bradycardia, Tachycardia - GI/Abdominal Exam GI & Abdominal Exam: Soft, Normal Bowel Sounds. absent: Firm, Guarding, Rigid, Tenderness - Extremities Exam Extremities Exam: absent: Pedal Edema, Tenderness Additional comments: hyperpigmented patches to bilateral lower extremities - Neurological Exam Neurological Exam: Alert, Awake, Oriented x3 - Psychiatric Exam Psychiatric exam: Normal Affect, Normal Mood - Skin Additional comments: hyperpigmented patches to bilateral lower extremities Assessment and Plan - Assessment and Plan (Free Text) Assessment: Syncope likely secondary to hypoglycemia Glucose continues to be low this AM (61). Will discontinue RISS and start patient on Metformin 500 mg po BID Random glucose of 29 -->56 (10/14) Given D50 IV in ED Monitor sugars CT Head: No acute intracranial pathology identified. Asymmetry within the left middle cranial fossa which raises possibility of arachnoid cyst versus encephalomalacia or atrophy. Additional nonspecific white matter changes. Generalized atrophy. Hand X-Ray: No acute displaced fracture, dislocation, or significant joint effusion identified. Troponin I, 0.0120 f/u Echocardiogram Leukocytosis likely secondary to UTI WBC 10.1, Neuts 77.0% WBC 16.3, Bands 8, Neuts 85% (10/15) Afebrile CXR: no active dz urinalysis: leuk esterase 3+, WBC 18, Bacteria Many f/u blood cx x2, urine cx, stool studies, c. diff Continue Rocephin 1 gm IVPB q24h Monitor Diabetes Mellitus type II Metformin 1000 mg po daily held Start Metformin 500 mg po BID hemoglobin a1c on previous admission 9.0 Discontinue RISS Accuchecks Monitor Hypertension Continue home medication Lisinopril 5 mg po daily Monitor Hyperlipidemia Home medication Simvastatin 20 mg po HS -NF Crestor 5 mg po HS Prophylaxis SCD Pepcid 20 mg po daily Heart Healthy Diet <Abdiel Cai H - Last Filed: 10/15/16 15:45> Objective - Vital Signs/Intake and Output Vital Signs (last 24 hours): Temp Pulse Resp BP Pulse Ox 98.9 F 91 H 18 110/71 96 10/15/16 07:10 10/15/16 07:10 10/15/16 07:10 10/15/16 07:10 10/15/16 07:10 - Medications Medications: Current Medications Famotidine (Pepcid) 20 mg PO DAILY [facility] Last Admin: 10/15/16 09:51 Dose: 20 mg Heparin Sodium (Porcine) (Heparin) 5,000 units SC Q12 [facility] Ceftriaxone Sodium 1 gm/ (Sodium Chloride) 100 mls @ 100 mls/hr IVPB DAILY [facility] Last Admin: 10/15/16 09:51 Dose: 100 mls/hr Lisinopril (Zestril) 5 mg PO DAILY [facility] Last Admin: 10/15/16 09:51 Dose: 5 mg Metformin HCl (Glucophage) 500 mg PO BID [facility] Pneumococcal Polyvalent Vaccine (Pneumovax 23 Vaccine) 0.5 ml IM .ONCE ONE Stop: 10/16/16 10:01 Rosuvastatin Calcium (Crestor) 5 mg PO HS [facility] Last Admin: 10/14/16 21:54 Dose: 5 mg - Labs Labs: 10/15/16 08:23 10/15/16 08:23 Attending/Attestation - Attestation I have personally seen and examined this patient.: Yes I have fully participated in the care of the patient.: Yes I have reviewed all pertinent clinical information, including history, physical exam and plan: Yes Notes (Text): Medical Attending: Patient was seen and examined by me. Agree with the above note by the resident - patient is still having some lower number recorded. Will stop the insulin entirely and switch over to metformin 500 BID. Continue to monitor accucheks. If the accuchecks are more stable tommorow then will discharge thank you Abdiel Cai
--- NOTE | 2016-10-15 14:03 | CARD ---
APPROVED REPORT EKG Measurement Heart [id number] <Conclusion> Normal sinus rhythm Normal ECG
--- NOTE | 2016-10-15 18:24 | CARD ---
APPROVED REPORT EXAM: Two-dimensional and M-mode echocardiogram with Doppler and color Doppler. Other Information Quality : AverageRhythm : NSR INDICATION Syncope RISK FACTORS Hypertension Hyperlipidemia Diabetes M-Mode DIMENSIONS RVDd1.48 (2.1-3.2cm)Left Atrium (MM)4.25 (2.5-4.0cm) IVSd1.11 (0.7-1.1cm)Aortic Root3.05 (2.2-3.7cm) LVDd5.73 (4.0-5.6cm)Aortic Cusp Exc.2.14 (1.5-2.0cm) PWd1.20 (0.7-1.1cm)FS (%) 23 % LVDs4.41 (2.0-3.8cm)LVEF (%)46 (>50%) Aortic Valve AoV Peak Cpymqkop015.5cm/Gita Peak GR.8mmHg Mitral Valve MV E Yyrlzffo85.9cm/sMV A Dldefuih753.8cm/sE/A ratio0.7 TDI E/Lateral E'0.0E/Medial E'0.0 Tricuspid Valve TR Peak Vgjmxlpf305xy/sTR Peak Gr.52fvTwRYJX04wtTw LEFT VENTRICLE The left ventricle is normal size. There is normal left ventricular wall thickness. The left ventricular function is borderline The left ventricular ejection fraction is borderline. There is a suggestion of septal hypokinesis. The left ventricular diastolic function is indetermiante, due to tachycardia. No left ventricle thrombus noted on this study. There is no ventricular septal defect visualized. There is no left ventricular aneurysm. There is no mass noted in the left ventricle. RIGHT VENTRICLE The right ventricle is normal size. There is normal right ventricular wall thickness. The right ventricular systolic function is normal. ATRIA The left atrium size is normal. The right atrium size is normal. The interatrial septum is intact with no evidence for an atrial septal defect. AORTIC VALVE The aortic valve is normal in structure and function. No aortic regurgitation is present. There is no aortic valvular stenosis. There is no aortic valvular vegetation. MITRAL VALVE The mitral valve is normal in structure and function. There is no evidence of mitral valve prolapse. There is no mitral valve stenosis. There is no mitral valve regurgitation noted. TRICUSPID VALVE The tricuspid valve is normal in structure and function. There is mild tricuspid valve regurgitation noted. (overestimated by technologist). There is no tricuspid valve prolapse or vegetation. There is no tricuspid valve stenosis. PULMONIC VALVE The pulmonary valve is normal in structure and function. There is no pulmonic valvular regurgitation. There is no pulmonic valvular stenosis. GREAT VESSELS The aortic root is normal in size. The ascending aorta is normal in size. The pulmonary artery is normal. The IVC is normal in size and collapses >50% with inspiration. PERICARDIAL EFFUSION The pericardium appears normal. There is no pleural effusion. <Conclusion> Sub-optimal study Overall LV systolic function appears birderline, and there is a suggestion of septal hypokinesis. Normal Doppler.
--- NOTE | 2016-10-16 07:42 | CP.PCM.PN ---
<Hilaria Srinivasan - Last Filed: 10/16/16 17:16> Subjective - Date & Time of Evaluation Date of Evaluation: 10/16/16 Time of Evaluation: 07:38 - Subjective Subjective: Pt seen and examined at bedside. Sugars were high overnight and this morning ranging from 280-384. Patient denies lightheadedness/dizziness. He states the diarrhea he was experiencing has resolved and he no longer is having increased urinary frequency. He denies dysuria. Patient denies fever, chills, chest pain, SOB, abdominal pain, nausea, vomiting, lower extremity edema. Objective - Vital Signs/Intake and Output Vital Signs (last 24 hours): Temp Pulse Resp BP Pulse Ox 99.4 F 95 H 20 120/83 95 10/15/16 23:30 10/16/16 00:00 10/15/16 23:30 10/15/16 23:30 10/15/16 23:30 Intake and Output: 10/16/16 10/16/16 06:59 18:59 Intake Total 250 Balance 250 - Medications Medications: Current Medications Famotidine (Pepcid) 20 mg PO DAILY [facility] Last Admin: 10/15/16 09:51 Dose: 20 mg Heparin Sodium (Porcine) (Heparin) 5,000 units SC Q12 [facility] Last Admin: 10/15/16 21:53 Dose: 5,000 units Ceftriaxone Sodium 1 gm/ (Sodium Chloride) 100 mls @ 100 mls/hr IVPB DAILY [facility] Last Admin: 10/15/16 09:51 Dose: 100 mls/hr Lisinopril (Zestril) 5 mg PO DAILY [facility] Last Admin: 10/15/16 09:51 Dose: 5 mg Metformin HCl (Glucophage) 500 mg PO BID [facility] Last Admin: 10/15/16 17:22 Dose: 500 mg Pneumococcal Polyvalent Vaccine (Pneumovax 23 Vaccine) 0.5 ml IM .ONCE ONE Stop: 10/16/16 10:01 Rosuvastatin Calcium (Crestor) 5 mg PO HS [facility] Last Admin: 10/15/16 21:53 Dose: 5 mg - Labs Labs: 10/15/16 08:23 10/15/16 08:23 - Constitutional Appears: Non-toxic, No Acute Distress - Head Exam Head Exam: ATRAUMATIC, NORMAL INSPECTION, NORMOCEPHALIC - Eye Exam Eye Exam: EOMI, Normal appearance, PERRL - ENT Exam ENT Exam: Mucous Membranes Moist - Respiratory Exam Respiratory Exam: Clear to Ausculation Bilateral, NORMAL BREATHING PATTERN - Cardiovascular Exam Cardiovascular Exam: +S1, +S2. absent: Bradycardia, Tachycardia - GI/Abdominal Exam GI & Abdominal Exam: Soft, Normal Bowel Sounds. absent: Distended, Firm, Rigid , Tenderness - Extremities Exam Extremities Exam: Full ROM, Normal Inspection. absent: Pedal Edema, Tenderness - Neurological Exam Neurological Exam: Alert, Awake, Oriented x3 - Psychiatric Exam Psychiatric exam: Normal Affect, Normal Mood - Skin Additional comments: hyperpigmentation to bilateral lower extremities Assessment and Plan - Assessment and Plan (Free Text) Assessment: Syncope likely secondary to hypoglycemia Glucose continues to be low this AM (61). Will discontinue RISS and start patient on Metformin 500 mg po BID Random glucose of 29 -->56 (10/14) Given D50 IV in ED Monitor sugars CT Head: No acute intracranial pathology identified. Asymmetry within the left middle cranial fossa which raises possibility of arachnoid cyst versus encephalomalacia or atrophy. Additional nonspecific white matter changes. Generalized atrophy. Hand X-Ray: No acute displaced fracture, dislocation, or significant joint effusion identified. Troponin I, 0.0120 EKG: NSR Echocardiogram: supoptimal study. Overall LV systolic function borderline. Septal hypokinesis (see full report). Leukocytosis ESBL+ Urine Cx. Start Primaxin 500 mg IVPB q6h WBC 10.1, Neuts 77.0% WBC 16.3, Bands 8, Neuts 85% (10/15) Afebrile CXR: no active dz urinalysis: leuk esterase 3+, WBC 18, Bacteria Many f/u blood cx x2, stool studies, c. diff DC Rocephin 1 gm IVPB q24h Monitor Diabetes Mellitus type II glucose 280-384 Metformin 1000 mg po daily held Increase to Metformin 1000 mg po BID hemoglobin a1c on previous admission 9.0 Discontinue RISS Accuchecks Monitor Hypertension Continue home medication Lisinopril 5 mg po daily Monitor Hyperlipidemia Home medication Simvastatin 20 mg po HS -NF Crestor 5 mg po HS Prophylaxis SCD Pepcid 20 mg po daily Heart Healthy Diet <AyalaPeter H - Last Filed: 10/16/16 18:19> Objective - Vital Signs/Intake and Output Vital Signs (last 24 hours): Temp Pulse Resp BP Pulse Ox 98.7 F 94 H 20 116/76 97 10/16/16 17:28 10/16/16 17:28 10/16/16 17:28 10/16/16 17:28 10/16/16 17:28 Intake and Output: 10/16/16 10/16/16 06:59 18:59 Intake Total 250 400 Balance 250 400 - Medications Medications: Current Medications Famotidine (Pepcid) 20 mg PO DAILY [facility] Last Admin: 10/16/16 09:47 Dose: 20 mg Heparin Sodium (Porcine) (Heparin) 5,000 units SC Q12 [facility] [place] Last Admin: 10/16/16 09:48 Dose: 5,000 units Imipenem/Cilastatin Sodium 500 (mg/ Sodium Chloride) 100 mls @ 100 mls/hr IVPB Q6H [facility] [place] Lisinopril (Zestril) 5 mg PO DAILY [facility] [place] Last Admin: 10/16/16 09:48 Dose: 5 mg Metformin HCl (Glucophage) 1,000 mg PO BID [facility] Last Admin: 10/16/16 17:45 Dose: 1,000 mg Rosuvastatin Calcium (Crestor) 5 mg PO HS [facility] [place] Last Admin: 10/15/16 21:53 Dose: 5 mg - Labs Labs: 10/16/16 09:25 10/16/16 09:25 Attending/Attestation - Attestation I have personally seen and examined this patient.: Yes I have fully participated in the care of the patient.: Yes I have reviewed all pertinent clinical information, including history, physical exam and plan: Yes Notes (Text): 10/16/16 18:18 Medical attending: Patient was seen and examined by me, agrees the above note by the resident The patient's blood sugars are much better. As mentioned before the patient was taken unprescribed insulin at home which caused the severe hypoglycemia. While here we have not given the patient any insulin control his blood sugars with metformin. We had intended to discharge patient today however the urine culture which was preliminary gram-negative positive has come back Escherichia coli ESBL. It's resistant to the Rocephin that were giving. It is sensitive to Primaxin which are changed and now. thank you Abdiel Cai
[2016-10-16 09:30] LABS: BASO # 0.1 K/uL (0.0-0.2); BASO % 0.6 % (0.0-2.0); EOS # 0.1 K/uL (0.0-0.7); EOS % 0.6 % (0.0-4.0); HEMATOCRIT 31.3 % (35.0-51.0); LYMPH # 1.4 K/uL (1.0-4.3); LYMPH % 16.3 % (20.0-40.0); MEAN CORPUSCULAR HEMOGLOBIN 21.1 pg (27.0-31.0); MEAN PLATELET VOLUME 8.2 fL (7.2-11.7); MONO # 0.8 K/uL (0.0-0.8); MONO % 8.6 % (0.0-10.0); NRBC % 0.1 % (0.0-2.0); RED CELL DISTRIBUTION WIDTH 17.5 % (11.5-14.5); WHITE BLOOD COUNT 8.8 K/uL (4.8-10.8)
[2016-10-16 09:50] LABS: CHLORIDE 95 mmol/L (98-107); POTASSIUM 4.6 mmol/L (3.6-5.2); SODIUM 132 mmol/L (132-148)
[2016-10-16 09:52] LABS: BILIRUBIN,TOTAL 0.6 mg/dL (0.2-1.3); GFR AFRICAN-AMERICAN > 60
[2016-10-16 09:53] LABS: ALB/GLOB RATIO 0.6 (1.0-2.1); ALKALINE PHOSPHATASE 124 U/L (38-126); ALT/SGPT 29 U/L (21-72); AST/SGOT 23 U/L (17-59); BLOOD UREA NITROGEN 11 mg/dL (9-20); CARBON DIOXIDE 26 mmol/L (22-30); GLUCOSE,RANDOM 311 mg/dL (75-110); TOTAL PROTEIN 6.2 g/dL (6.3-8.3)
[2016-10-16 09:54] LABS: MAGNESIUM 1.8 mg/dL (1.6-2.3)
[2016-10-16] MEDS ORDERED: Pneumococcal 23-Valent Vaccine IM ONE (10:00)
[2016-10-16 12:44] LABS: C DIFF TOXIN A B NEGATIVE (NEGATIVE)
[2016-10-16 15:32] LABS: FECAL LEUKOCYTES POSITIVE (NEGATIVE)
[2016-10-17] MEDS ORDERED: (Novolog) Insulin Aspart, Recombinant 100 u/ml 10 ml vial SC STA (00:45)
--- NOTE | 2016-10-17 07:25 | CP.PCM.PN ---
<Hilaria Srinivasan - Last Filed: 10/17/16 15:27> Subjective - Date & Time of Evaluation Date of Evaluation: 10/17/16 Time of Evaluation: 07:25 - Subjective Subjective: Patient seen and examined at bedside. Glucose elevated overnight >400. Patient is very concerned regarding ESBL+ urinary tract infection. Although it has been explained to him he is receiving antibiotic for the infection, he seems confused. Patient denies chest pain, shortness of breath, palpitations, abdominal pain, nausea, vomiting, diarrhea, constipation, and dysuria. Objective - Vital Signs/Intake and Output Vital Signs (last 24 hours): Temp Pulse Resp BP Pulse Ox 98.3 F 103 H 20 129/78 99 10/16/16 23:20 10/16/16 23:20 10/16/16 23:20 10/16/16 23:20 10/17/16 07:23 - Medications Medications: Current Medications Famotidine (Pepcid) 20 mg PO DAILY [facility] Last Admin: 10/16/16 09:47 Dose: 20 mg Heparin Sodium (Porcine) (Heparin) 5,000 units SC Q12 [facility] Last Admin: 10/16/16 22:40 Dose: 5,000 units Imipenem/Cilastatin Sodium 500 (mg/ Sodium Chloride) 100 mls @ 100 mls/hr IVPB Q6H [facility] Last Admin: 10/17/16 06:43 Dose: 100 mls/hr Lisinopril (Zestril) 5 mg PO DAILY [facility] Last Admin: 10/16/16 09:48 Dose: 5 mg Metformin HCl (Glucophage) 1,000 mg PO BID [facility] Last Admin: 10/16/16 17:45 Dose: 1,000 mg Rosuvastatin Calcium (Crestor) 5 mg PO HS [facility] Last Admin: 10/16/16 22:40 Dose: 5 mg - Labs Labs: 10/16/16 09:25 10/16/16 09:25 - Constitutional Appears: Non-toxic, No Acute Distress - Head Exam Head Exam: ATRAUMATIC, NORMAL INSPECTION, NORMOCEPHALIC - Eye Exam Eye Exam: EOMI, Normal appearance, PERRL - ENT Exam ENT Exam: Mucous Membranes Moist - Neck Exam Neck Exam: Full ROM, Normal Inspection - Respiratory Exam Respiratory Exam: Clear to Ausculation Bilateral, NORMAL BREATHING PATTERN. absent: Rales, Rhonchi, Wheezes - Cardiovascular Exam Cardiovascular Exam: +S1, +S2. absent: Tachycardia - GI/Abdominal Exam GI & Abdominal Exam: Soft, Normal Bowel Sounds. absent: Distended, Firm, Tenderness - Extremities Exam Extremities Exam: Normal Inspection. absent: Pedal Edema, Tenderness - Back Exam Back Exam: NORMAL INSPECTION - Neurological Exam Neurological Exam: Alert, Awake, Oriented x3 - Psychiatric Exam Psychiatric exam: Normal Affect, Normal Mood - Skin Skin Exam: Intact, Normal Color Assessment and Plan - Assessment and Plan (Free Text) Assessment: Syncope likely secondary to hypoglycemia Glucose continues to be low this AM (61). Will discontinue RISS and start patient on Metformin 500 mg po BID Random glucose of 29 -->56 (10/14) Given D50 IV in ED Monitor sugars CT Head: No acute intracranial pathology identified. Asymmetry within the left middle cranial fossa which raises possibility of arachnoid cyst versus encephalomalacia or atrophy. Additional nonspecific white matter changes. Generalized atrophy. Hand X-Ray: No acute displaced fracture, dislocation, or significant joint effusion identified. Troponin I, 0.0120 EKG: NSR Echocardiogram: supoptimal study. Overall LV systolic function borderline. Septal hypokinesis (see full report). UTI ESBL+ Urine Cx. Continue Primaxin 500 mg IVPB q6h urinalysis: leuk esterase 3+, WBC 18, Bacteria Many DC Rocephin 1 gm IVPB q24h Monitor Diabetes Mellitus type II glucose >400 Start Glipizide 2.5 mg po ACB Increase to Metformin 1000 mg po BID hemoglobin a1c on previous admission 9.0 Discontinue RISS Accuchecks Monitor Hypertension Continue home medication Lisinopril 5 mg po daily Monitor Hyperlipidemia Home medication Simvastatin 20 mg po HS -NF Crestor 5 mg po HS Prophylaxis SCD Pepcid 20 mg po daily Heart Healthy Diet Dispo For discharge tomorrow <Abdiel Cai H - Last Filed: 10/17/16 15:50> Objective - Vital Signs/Intake and Output Vital Signs (last 24 hours): Temp Pulse Resp BP Pulse Ox 98.4 F 82 20 109/74 99 10/17/16 07:00 10/17/16 07:00 10/17/16 07:00 10/17/16 07:00 10/17/16 07:23 - Medications Medications: Current Medications Famotidine (Pepcid) 20 mg PO DAILY [facility] Last Admin: 10/17/16 10:53 Dose: 20 mg Glipizide (Glucotrol) 2.5 mg PO ACB [facility] Heparin Sodium (Porcine) (Heparin) 5,000 units SC Q12 [facility] Last Admin: 10/17/16 10:53 Dose: 5,000 units Imipenem/Cilastatin Sodium 500 (mg/ Sodium Chloride) 100 mls @ 100 mls/hr IVPB Q6H [facility] Last Admin: 10/17/16 10:56 Dose: 100 mls/hr Lisinopril (Zestril) 5 mg PO DAILY [facility] Last Admin: 10/17/16 10:53 Dose: 5 mg Metformin HCl (Glucophage) 1,000 mg PO BID [facility] Last Admin: 10/17/16 10:53 Dose: 1,000 mg Rosuvastatin Calcium (Crestor) 5 mg PO HS [facility] Last Admin: 10/16/16 22:40 Dose: 5 mg Attending/Attestation - Attestation I have personally seen and examined this patient.: Yes I have fully participated in the care of the patient.: Yes I have reviewed all pertinent clinical information, including history, physical exam and plan: Yes Notes (Text): 10/17/16 15:48 Medical attending: Patient was seen and examined by me, agrees the above note by medical assisting instructor. Regarding continue the patient with the with the metformin and also add on glipizide today. We'll also continue the patient on another day of IV Primaxin for the Escherichia coli that was found in his urine. Thank you very much, Abdiel Cai
[2016-10-17 08:03] LABS: BASO % 0.6 % (0.0-2.0); EOS # 0.1 K/uL (0.0-0.7); EOS % 0.9 % (0.0-4.0); HEMATOCRIT 29.3 % (35.0-51.0); LYMPH # 1.3 K/uL (1.0-4.3); LYMPH % 21.5 % (20.0-40.0); MEAN CORPUSCULAR HEMOGLOBIN 21.1 pg (27.0-31.0); MEAN CORPUSCULAR HGB CONC 31.3 g/dL (33.0-37.0); MEAN PLATELET VOLUME 8.2 fL (7.2-11.7); MONO # 0.5 K/uL (0.0-0.8); MONO % 8.7 % (0.0-10.0); RED CELL DISTRIBUTION WIDTH 17.6 % (11.5-14.5); WHITE BLOOD COUNT 6.1 K/uL (4.8-10.8)
[2016-10-17 08:07] LABS: MEAN CELL VOLUME 67.5 fL (80.0-94.0)
[2016-10-17 08:20] LABS: CHLORIDE 95 mmol/L (98-107); POTASSIUM 4.2 mmol/L (3.6-5.2); SODIUM 129 mmol/L (132-148)
[2016-10-17 08:22] LABS: BILIRUBIN,TOTAL 0.5 mg/dL (0.2-1.3); GFR AFRICAN-AMERICAN > 60
[2016-10-17 08:23] LABS: ALB/GLOB RATIO 0.6 (1.0-2.1); ALKALINE PHOSPHATASE 119 U/L (38-126); ALT/SGPT 25 U/L (21-72); AST/SGOT 16 U/L (17-59); BLOOD UREA NITROGEN 12 mg/dL (9-20); CALCIUM 7.7 mg/dl (8.6-10.4); CARBON DIOXIDE 25 mmol/L (22-30); GLUCOSE,RANDOM 323 mg/dL (75-110); TOTAL PROTEIN 5.7 g/dL (6.3-8.3)
[2016-10-17 08:24] LABS: MAGNESIUM 1.8 mg/dL (1.6-2.3)
[2016-10-17] MEDS ORDERED: (Novolog) Insulin Aspart, Recombinant 100 u/ml 10 ml vial SC ONE (23:30)
[2016-10-18] MEDS ORDERED: GlipiZIDE 2.5 mg Tab PO SCH (07:30)
[2016-10-18 08:12] LABS: BASO % 0.6 % (0.0-2.0); EOS # 0.1 K/uL (0.0-0.7); EOS % 0.9 % (0.0-4.0); HEMATOCRIT 29.8 % (35.0-51.0); LYMPH # 1.3 K/uL (1.0-4.3); LYMPH % 19.1 % (20.0-40.0); MEAN CELL VOLUME 67.4 fL (80.0-94.0); MEAN CORPUSCULAR HEMOGLOBIN 21.1 pg (27.0-31.0); MEAN CORPUSCULAR HGB CONC 31.3 g/dL (33.0-37.0); MEAN PLATELET VOLUME 8.2 fL (7.2-11.7); MONO # 0.7 K/uL (0.0-0.8); MONO % 11.1 % (0.0-10.0); NRBC % 0.1 % (0.0-2.0); RED CELL DISTRIBUTION WIDTH 17.6 % (11.5-14.5); WHITE BLOOD COUNT 6.6 K/uL (4.8-10.8)
[2016-10-18 08:38] VITALS: TEMP 98.1
[2016-10-18 09:50] LABS: CHLORIDE 95 mmol/L (98-107); POTASSIUM 4.4 mmol/L (3.6-5.2); SODIUM 130 mmol/L (132-148)
[2016-10-18 09:52] LABS: ALB/GLOB RATIO 0.7 (1.0-2.1); ALKALINE PHOSPHATASE 107 U/L (38-126); AST/SGOT 17 U/L (17-59); BILIRUBIN,TOTAL 0.6 mg/dL (0.2-1.3); CARBON DIOXIDE 26 mmol/L (22-30); GFR AFRICAN-AMERICAN > 60; TOTAL PROTEIN 5.8 g/dL (6.3-8.3)
[2016-10-18 09:53] LABS: ALT/SGPT 24 U/L (21-72); BLOOD UREA NITROGEN 12 mg/dL (9-20); CALCIUM 7.9 mg/dl (8.6-10.4); GLUCOSE,RANDOM 338 mg/dL (75-110); MAGNESIUM 1.6 mg/dL (1.6-2.3)
[2016-10-18] MEDS ORDERED: Pneumococcal 23-Valent Vaccine IM ONE (12:00)
[2016-10-18 16:58] VITALS: BP 117/79; PULSE 99; RESP 20; O2SAT 96
--- NOTE | 2016-10-18 18:41 | CP.PCM.DIS ---
<DanielHilaria pimentel - Last Filed: 10/18/16 18:33> Provider - Provider Date of Admission: 10/17/16 15:35 Attending physician: Abdiel Cai DO Primary care physician: none Time Spent in preparation of Discharge (in minutes): 31 Diagnosis - Discharge Diagnosis (1) Hypoglycemia Status: Acute (2) Hyperlipidemia Status: Acute (3) ESBL (extended spectrum beta-lactamase) producing bacteria infection Status: Acute Comment: UTI (4) Syncope Status: Acute (5) Hypertension Status: Chronic (6) Uncontrolled diabetes mellitus Status: Chronic Hospital Course - Lab Results Lab Results: Most Recent Lab Values WBC 6.6 K/uL (4.8-10.8) 10/18/16 07:56 RBC 4.42 Mil/uL (4.40-5.90) 10/18/16 07:56 Hgb 9.3 g/dL (12.0-18.0) L 10/18/16 07:56 Hct 29.8 % (35.0-51.0) L 10/18/16 07:56 MCV 67.4 fL (80.0-94.0) L 10/18/16 07:56 MCH 21.1 pg (27.0-31.0) L 10/18/16 07:56 MCHC 31.3 g/dL (33.0-37.0) L 10/18/16 07:56 RDW 17.6 % (11.5-14.5) H 10/18/16 07:56 Plt Count 243 K/uL (130-400) 10/18/16 07:56 MPV 8.2 fL (7.2-11.7) 10/18/16 07:56 Neut % (Auto) 68.3 % (50.0-75.0) 10/18/16 07:56 Lymph % (Auto) 19.1 % (20.0-40.0) L 10/18/16 07:56 [place] % (Auto) 11.1 % (0.0-10.0) H 10/18/16 07:56 Eos % (Auto) 0.9 % (0.0-4.0) 10/18/16 07:56 Baso % (Auto) 0.6 % (0.0-2.0) 10/18/16 07:56 Neut # 4.5 K/uL (1.8-7.0) 10/18/16 07:56 Lymph # 1.3 K/uL (1.0-4.3) 10/18/16 07:56 [place] # 0.7 K/uL (0.0-0.8) 10/18/16 07:56 Eos # 0.1 K/uL (0.0-0.7) 10/18/16 07:56 Baso # 0.0 K/uL (0.0-0.2) 10/18/16 07:56 Neutrophils % (Manual) 85 % (50-75) H 10/14/16 10:34 Band Neutrophils % 8 % (0-2) H 10/14/16 10:34 Lymphocytes % (Manual) 4 % (20-40) L 10/14/16 10:34 Monocytes % (Manual) 3 % (0-10) 10/14/16 10:34 Differential Comment 10/17/16 07:37 Platelet Estimate Normal (NORMAL) 10/14/16 10:34 Hypochromasia (manual) Slight 10/14/16 10:34 Poikilocytosis (manual Slight 10/14/16 10:34 Anisocytosis (manual) Slight 10/14/16 10:34 Microcytosis (manual) Slight 10/14/16 10:34 Ovalocytes Slight 10/14/16 10:34 Sodium 130 mmol/L (132-148) L 10/18/16 07:56 Potassium 4.4 mmol/L (3.6-5.2) 10/18/16 07:56 Chloride 95 mmol/L (98-107) L 10/18/16 07:56 Carbon Dioxide 26 mmol/L (22-30) 10/18/16 07:56 Anion Gap 13 (10-20) 10/18/16 07:56 BUN 12 mg/dL (9-20) 10/18/16 07:56 Creatinine 0.7 MG/DL (0.8-1.5) L 10/18/16 07:56 Est GFR ( Amer) > 60 10/18/16 07:56 Est GFR (Non-Af Amer) > 60 10/18/16 07:56 POC Glucose (mg/dL) 472 mg/dL (65-110) H* 10/18/16 11:34 Random Glucose 338 mg/dL (75-110) H 10/18/16 07:56 Calcium 7.9 mg/dl (8.6-10.4) L 10/18/16 07:56 Magnesium 1.6 mg/dL (1.6-2.3) 10/18/16 07:56 Total Bilirubin 0.6 mg/dL (0.2-1.3) 10/18/16 07:56 AST 17 U/L (17-59) 10/18/16 07:56 ALT 24 U/L (21-72) 10/18/16 07:56 Alkaline Phosphatase 107 U/L (38-126) 10/18/16 07:56 Troponin I < 0.0120 ng/mL (0.00-0.120) 10/14/16 10:34 Total Protein 5.8 g/dL (6.3-8.3) L 10/18/16 07:56 Albumin 2.3 g/dL (3.5-5.0) L 10/18/16 07:56 Globulin 3.5 gm/dL (2.2-3.9) 10/18/16 07:56 Albumin/Globulin Ratio 0.7 (1.0-2.1) L 10/18/16 07:56 Total T3 1.31 nmol/L (1.49-2.60) L 10/14/16 10:34 TSH 3rd Generation 0.84 mIU/L (0.46-4.68) 10/14/16 10:34 Urine Color Yellow (YELLOW) 10/14/16 20:38 Urine Clarity Hazy (Clear) 10/14/16 20:38 Urine pH 6.0 (5.0-8.0) 10/14/16 20:38 Ur Specific Peel 1.008 (1.003-1.030) 10/14/16 20:38 Urine Protein Negative mg/dL (NEGATIVE) 10/14/16 20:38 Urine Glucose (UA) Normal mg/dL (Normal) 10/14/16 20:38 Urine Ketones Negative mg/dL (NEGATIVE) 10/14/16 20:38 Urine Blood Negative (NEGATIVE) 10/14/16 20:38 Urine Nitrate Negative (NEGATIVE) 10/14/16 20:38 Urine Bilirubin Negative (NEGATIVE) 10/14/16 20:38 Urine Urobilinogen 4.0 mg/dL (0.2-1.0) 10/14/16 20:38 Ur Leukocyte Esterase 3+ Ana/uL (Negative) H 10/14/16 20:38 Urine WBC (Auto) 18 /hpf (0-5) H 10/14/16 20:38 Urine RBC (Auto) 1 /hpf (0-3) 10/14/16 20:38 Ur Squamous Epith Cells < 1 /hpf (0-5) 10/14/16 20:38 Urine Bacteria Many (<OCC) H 10/14/16 20:38 Stool Leukocytes, Qual Positive (NEGATIVE) H 10/14/16 06:00 C. difficile Ag & Toxin Negative (NEGATIVE) 10/14/16 06:00 - Hospital Course Hospital Course: On admission: CC: "I fell" HPI: Patient is a 66 y/o male w/ past medical history of Diabetes Mellitus type II (diagnosed in 1999) and hypertension presenting with recent fall, excessive sweating, and lethargy. He states that when he awoke, he went to the bathroom and suddenly fell. The patient reported another fall during his last admission as well. He denies any excessive trauma and says that the impact was braced by his left wrist and forearm, which appear to be mildly swollen. Upon returning to bed, the patient states that he hit the back of his head when lying down too abruptly. The patient's friend called him and the patient requested to be taken to the hospital because he felt like "something was wrong ". He was noted to be severely hypoglycemic in the emergency room with a random glucose of 29 on admission. On further questioning, the patient states that he has been taking both metformin AND ~20-40 units of Insulin 70/30 twice daily since his last hospitalization about 2 weeks ago. According to his last hospital discharge, the patient was instructed to stop taking insulin and only take Metformin 1000 mg po daily. Patient states he gets his insulin from [facility] without a prescription and that he does not follow-up with a primary care physician but was scheduled to follow-up and establish care at the [facility] this Friday. Patient is compliant with checking his sugars using a glucometer. He adds that his blood sugars were in the 50s yesterday, in the 140s last night, and 29 today on admission. He adds that he has also experienced some penile pain/discomfort on contact with his clothing.The patient reports feelings of depression, dry mouth, diarrhea, mild RLQ abdominal pain, and urinary frequency. The patient denies fever/chills, chest pain, cough, hematochezia, and dysuria. PMH: Diabetes Mellitus type II, hypertension, Hyperlipidemia, low HDL Medications: Metformin 1000 mg po daily, Lisinopril 5 mg po daily, Simvastatin 20 mg po HS, Aspirin 81 mg po daily, [place] 3 Fish Oil over the counter Allergies: NKDA Family history: Father - Type 2 Diabetes Mellitus. Mother - from brain tumor. Surgical history: Questionable appendectomy Hospitalizations: Recently hospitalized (~2 weeks ago) for diarrhea. Social history: The patient currently lives alone. Denies tobacco, alcohol, and illicit drug use. 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 During hospital course: Syncope likely secondary to hypoglycemia Glucose continues to be low this AM (61). Will discontinue RISS and start patient on Metformin 500 mg po BID Random glucose of 29 -->56 (10/14) Given D50 IV in ED Monitor sugars CT Head: No acute intracranial pathology identified. Asymmetry within the left middle cranial fossa which raises possibility of arachnoid cyst versus encephalomalacia or atrophy. Additional nonspecific white matter changes. Generalized atrophy. Hand X-Ray: No acute displaced fracture, dislocation, or significant joint effusion identified. Troponin I, 0.0120 EKG: NSR Echocardiogram: supoptimal study. Overall LV systolic function borderline. Septal hypokinesis (see full report). UTI ESBL+ Urine Cx. Continue Primaxin 500 mg IVPB q6h urinalysis: leuk esterase 3+, WBC 18, Bacteria Many DC Rocephin 1 gm IVPB q24h Monitor Diabetes Mellitus type II glucose >400 Start Glipizide 2.5 mg po ACB Increase to Metformin 1000 mg po BID hemoglobin a1c on previous admission 9.0 Discontinue RISS Accuchecks Monitor Hypertension Continue home medication Lisinopril 5 mg po daily Monitor Hyperlipidemia Home medication Simvastatin 20 mg po HS -NF Crestor 5 mg po HS Prophylaxis SCD Pepcid 20 mg po daily Heart Healthy Diet Discharge Instructions: Patient medically stable for discharge. Patient instructed to STOP taking Insulin. Patient instructed to take the following medications as prescribed: Metformin 1000 mg by mouth twice daily for high sugars Glipizide 2.5 mg by mouth twice daily for high sugars Macrobid 100 mg by mouth twice daily for 7 days (total of 14 pills) Lisinopril 5 mg by mouth once a day Simvastatin 20 mg by mouth at night Patient instructed to follow-up in [facility] this Friday to establish care. Patient instructed to return to the emergency department if symptoms recur. Patient given detailed instructions at bedside. Patient understands and agrees. - Date & Time of H&P Date of H&P: 10/14/16 Time of H&P: 15:31 Discharge Exam - Head Exam Head Exam: ATRAUMATIC, NORMAL INSPECTION, NORMOCEPHALIC - Eye Exam Eye Exam: EOMI, Normal appearance Pupil Exam: PERRL - ENT Exam ENT Exam: Normal Exam - Neck Exam Neck exam: Full Rom - Respiratory Exam Respiratory Exam: Clear to PA & Lateral, NORMAL BREATHING PATTERN, UNREMARKABLE - Cardiovascular Exam Cardiovascular Exam: +S1, +S2. absent: Bradycardia, Tachycardia - GI/Abdominal Exam GI & Abdominal Exam: Normal Bowel Sounds, Unremarkable - Extremities Exam Extremities exam: full ROM, normal capillary refill, pedal pulses present - Neurological Exam Neurological exam: Alert, CN II-XII Intact, Oriented x3 - Psychiatric Exam Psychiatric exam: Normal Affect, Normal Mood - Skin Skin Exam: Intact, Normal Color, Warm Discharge Plan - Discharge Medications Prescriptions: GlipiZIDE [Glucotrol] 2.5 mg PO BID #60 tab Lisinopril [Zestril] 5 mg PO DAILY #30 tab MetFORMIN [glucoPHAGE] 1,000 mg PO BID #60 tab Nitrofurantoin Macrocrystals [Macrobid] 100 mg PO BID #14 cap Simvastatin 20 mg PO DAILY #30 tablet - Follow Up Plan Condition: STABLE Disposition: HOME/ ROUTINE Instructions: Diabetic Hypoglycemia (DC), Diabetic Hypoglycemia (GEN) Additional Instructions: Patient medically stable for discharge. Patient instructed to STOP taking Insulin. Patient instructed to take the following medications as prescribed: Metformin 1000 mg by mouth twice daily for high sugars Glipizide 2.5 mg by mouth twice daily for high sugars Macrobid 100 mg by mouth twice daily for 7 days (total of 14 pills) Lisinopril 5 mg by mouth once a day Simvastatin 20 mg by mouth at night Patient instructed to follow-up in [facility] this Friday to establish care. Patient instructed to return to the emergency department if symptoms recur. Patient given detailed instructions at bedside. Patient understands and agrees. Referrals: Monie Ballesteros MD [Staff Provider] - <Abdiel Cai - Last Filed: 10/19/16 08:00> Provider - Provider Date of Admission: 10/17/16 15:35 Attending physician: Abdiel Cai [facility] Course - Lab Results Lab Results: Most Recent Lab Values WBC 6.6 K/uL (4.8-10.8) 10/18/16 07:56 RBC 4.42 Mil/uL (4.40-5.90) 10/18/16 07:56 Hgb 9.3 g/dL (12.0-18.0) L 10/18/16 07:56 Hct 29.8 % (35.0-51.0) L 10/18/16 07:56 MCV 67.4 fL (80.0-94.0) L 10/18/16 07:56 MCH 21.1 pg (27.0-31.0) L 10/18/16 07:56 MCHC 31.3 g/dL (33.0-37.0) L 10/18/16 07:56 RDW 17.6 % (11.5-14.5) H 10/18/16 07:56 Plt Count 243 K/uL (130-400) 10/18/16 07:56 MPV 8.2 fL (7.2-11.7) 10/18/16 07:56 Neut % (Auto) 68.3 % (50.0-75.0) 10/18/16 07:56 Lymph % (Auto) 19.1 % (20.0-40.0) L 10/18/16 07:56 [place] % (Auto) 11.1 % (0.0-10.0) H 10/18/16 07:56 Eos % (Auto) 0.9 % (0.0-4.0) 10/18/16 07:56 Baso % (Auto) 0.6 % (0.0-2.0) 10/18/16 07:56 Neut # 4.5 K/uL (1.8-7.0) 10/18/16 07:56 Lymph # 1.3 K/uL (1.0-4.3) 10/18/16 07:56 [place] # 0.7 K/uL (0.0-0.8) 10/18/16 07:56 Eos # 0.1 K/uL (0.0-0.7) 10/18/16 07:56 Baso # 0.0 K/uL (0.0-0.2) 10/18/16 07:56 Neutrophils % (Manual) 85 % (50-75) H 10/14/16 10:34 Band Neutrophils % 8 % (0-2) H 10/14/16 10:34 Lymphocytes % (Manual) 4 % (20-40) L 10/14/16 10:34 Monocytes % (Manual) 3 % (0-10) 10/14/16 10:34 Differential Comment 10/17/16 07:37 Platelet Estimate Normal (NORMAL) 10/14/16 10:34 Hypochromasia (manual) Slight 10/14/16 10:34 Poikilocytosis (manual Slight 10/14/16 10:34 Anisocytosis (manual) Slight 10/14/16 10:34 Microcytosis (manual) Slight 10/14/16 10:34 Ovalocytes Slight 10/14/16 10:34 Sodium 130 mmol/L (132-148) L 10/18/16 07:56 Potassium 4.4 mmol/L (3.6-5.2) 10/18/16 07:56 Chloride 95 mmol/L (98-107) L 10/18/16 07:56 Carbon Dioxide 26 mmol/L (22-30) 10/18/16 07:56 Anion Gap 13 (10-20) 10/18/16 07:56 BUN 12 mg/dL (9-20) 10/18/16 07:56 Creatinine 0.7 MG/DL (0.8-1.5) L 10/18/16 07:56 Est GFR ( Amer) > 60 10/18/16 07:56 Est GFR (Non-Af Amer) > 60 10/18/16 07:56 POC Glucose (mg/dL) 472 mg/dL (65-110) H* 10/18/16 11:34 Random Glucose 338 mg/dL (75-110) H 10/18/16 07:56 Calcium 7.9 mg/dl (8.6-10.4) L 10/18/16 07:56 Magnesium 1.6 mg/dL (1.6-2.3) 10/18/16 07:56 Total Bilirubin 0.6 mg/dL (0.2-1.3) 10/18/16 07:56 AST 17 U/L (17-59) 10/18/16 07:56 ALT 24 U/L (21-72) 10/18/16 07:56 Alkaline Phosphatase 107 U/L (38-126) 10/18/16 07:56 Troponin I < 0.0120 ng/mL (0.00-0.120) 10/14/16 10:34 Total Protein 5.8 g/dL (6.3-8.3) L 10/18/16 07:56 Albumin 2.3 g/dL (3.5-5.0) L 10/18/16 07:56 Globulin 3.5 gm/dL (2.2-3.9) 10/18/16 07:56 Albumin/Globulin Ratio 0.7 (1.0-2.1) L 10/18/16 07:56 Total T3 1.31 nmol/L (1.49-2.60) L 10/14/16 10:34 TSH 3rd Generation 0.84 mIU/L (0.46-4.68) 10/14/16 10:34 Urine Color Yellow (YELLOW) 10/14/16 20:38 Urine Clarity Hazy (Clear) 10/14/16 20:38 Urine pH 6.0 (5.0-8.0) 10/14/16 20:38 Ur Specific Peel 1.008 (1.003-1.030) 10/14/16 20:38 Urine Protein Negative mg/dL (NEGATIVE) 10/14/16 20:38 Urine Glucose (UA) Normal mg/dL (Normal) 10/14/16 20:38 Urine Ketones Negative mg/dL (NEGATIVE) 10/14/16 20:38 Urine Blood Negative (NEGATIVE) 10/14/16 20:38 Urine Nitrate Negative (NEGATIVE) 10/14/16 20:38 Urine Bilirubin Negative (NEGATIVE) 10/14/16 20:38 Urine Urobilinogen 4.0 mg/dL (0.2-1.0) 10/14/16 20:38 Ur Leukocyte Esterase 3+ Ana/uL (Negative) H 10/14/16 20:38 Urine WBC (Auto) 18 /hpf (0-5) H 10/14/16 20:38 Urine RBC (Auto) 1 /hpf (0-3) 10/14/16 20:38 Ur Squamous Epith Cells < 1 /hpf (0-5) 10/14/16 20:38 Urine Bacteria Many (<OCC) H 10/14/16 20:38 Stool Leukocytes, Qual Positive (NEGATIVE) H 10/14/16 06:00 C. difficile Ag & Toxin Negative (NEGATIVE) 10/14/16 06:00 Attending/Attestation - Attestation I have personally seen and examined this patient.: Yes I have fully participated in the care of the patient.: Yes I have reviewed all pertinent clinical information, including history, physical exam and plan: Yes Notes (Text): Medical attending: Patient was seen and examined by me, agrees the above note by biomedical engineering supervisor. As reported above by the resident, the patient had ESBL + e coli and has been on IV primaxin. Also he will need to take metformin as well as glipizide for his DM. It needs to be documented that when he came in he had alarmingly low blood glucoses and somehow he was self medicating himself with insulin. Previous documents note that he should be only oral medications. We explained to the patient that he needs to follow up with the [facility] and avoid using insulin at least for the time being to see how he does with oral medications. We explained to the patient that very low blood glucoses that he had could cause a lot of life threatening situations and that as long as he follows up his medications could be adjusted to help lower his sugars reasonably over time. thank you Abdiel Cai
== END 2016-10-18 18:31 | disposition home or self-care (01) | DRG 294 ==
LOC: C.ER 09:54 → C.9E 12:21 → C.6T 12:34 → OBSVTOIN 10-17 15:35
PROVIDERS: ADMIT Hospitalist; ATTEND Hospitalist
DX: E11.649 Type 2 diabetes mellitus with hypoglycemia without coma (principal); I10 Essential (primary) hypertension; E11.65 Type 2 diabetes mellitus with hyperglycemia; N39.0 Urinary tract infection, site not specified; Z79.4 Long term (current) use of insulin; E78.5 Hyperlipidemia, unspecified; B35.1 Tinea unguium; R55 Syncope and collapse; B96.20 Unspecified Escherichia coli [E. coli] as the cause of diseases classified elsewhere

== ENCOUNTER 2016-11-15 21:14 | Inpatient (IN) | payer MEDICAID, SELFPAY ==
[2016-11-15 21:15] VITALS: BMI 25.0
[2016-11-15] MEDS ORDERED: Sodium Chloride 0.9% 1,000 ML IV ONE ×2 (21:59→23:34)
--- NOTE | 2016-11-15 22:03 | C.PDOC ---
History Of Present Illness A 66 y/o M c/o passing out at home [employer]. Pt notes he felt weak and dizzy and completely blacked out. Denies headache, chest pain, pain, injury, SOB, palpitations, diaphoresis, fever, chills, or any other complaints. Time Seen by Provider: 11/15/16 22:06 Chief Complaint (Nursing): Syncope History Per: Patient History/Exam Limitations: no limitations Onset/Duration Of Symptoms: Hrs Current Symptoms Are (Timing): Still Present Fall Associated With With Symptoms: No Severity: Mild Recent travel outside of the [place]: No Additional History Per: Patient Past Medical History Reviewed: Historical Data, Nursing Documentation, Vital Signs Vital Signs: Last Vital Signs Temp 97.5 F L 11/16/16 01:12 Pulse 125 H 11/16/16 01:09 Resp 22 11/16/16 01:09 BP 105/70 11/16/16 01:09 Pulse Ox 98 11/16/16 01:21 - Medical History PMH: HTN, Hyperlipidemia Denies: Chronic Kidney Disease Family History: States: Unknown Family Hx - Social History Hx Alcohol Use: No Hx Substance Use: No - Immunization History Hx Tetanus Toxoid Vaccination: No Hx Influenza Vaccination: No Hx Pneumococcal Vaccination: No Review Of Systems Except As Marked, All Systems Reviewed And Found Negative. Constitutional: Positive for: Weakness. Negative for: Fever, Chills, Sweats, Other (Injury, pain) Cardiovascular: Negative for: Chest Pain Respiratory: Negative for: Shortness of Breath Neurological: Positive for: Dizziness, Other (LOC). Negative for: Headache Physical Exam - Physical Exam Appears: Non-toxic, No Acute Distress Skin: Warm, Dry Head: Atraumatic, Normacephalic Eye(s): bilateral: Normal Inspection Cardiovascular: Rhythm Regular Respiratory: Normal Breath Sounds, No Accessory Muscle Use, No Rales, No Rhonchi , No Wheezing Neurological/Psych: Oriented x3, Normal Speech, Normal Cognition, Other (Alert and awake, no focal deficit) ED Course And Treatment - Laboratory Results Result Diagrams: 11/16/16 01:33 11/16/16 01:58 ECG: Interpreted By Me, Viewed By Me ECG Rhythm: Sinus Tachycardia ECG Interpretation: No Acute Changes Interpretation Of ECG: Sinus tachycardia, poor R wave progression V! to V#, nonspc. T changes. abnormal tracings. Rate From EC O2 Sat by Pulse Oximetry: 98 (RA) Pulse Ox Interpretation: Normal - CT Scan/US CT Head w/o contrast Other Rad Studies (CT/US): Interpreted By Me, Read By Radiologist CT/US Interpretation: EXAM: CT Head Without Intravenous Contrast. CLINICAL HISTORY: 66 years old, male; Pain; Headache; Headache not specified. TECHNIQUE : Axial computed tomography images of the head/brain without intravenous contrast. This CT exam. was performed using one or more of the following dose reduction techniques: automated exposure. control, adjustment of the mA and/or kV according to patient size, and/or use of iterative. reconstruction technique. COMPARISON: No relevant prior studies available. FINDINGS: Brain : No acute intracranial hemorrhage. Age-appropriate periventricular white matter disease. No. edema. Ventricles: Age-appropriate ventriculomegaly. Bones: No acute displaced fracture. Sinuses: Unremarkable as visualized. No acute sinusitis. Mastoid air cells: Unremarkable as visualized. No mastoid effusion. IMPRESSION: No acute intracranial hemorrhage, or suspicious mass effect. NIHSS Stroke Scale - Date/Time Evaluation Performed Date Performed: 11/15/16 Time Performed: 22:10 When Was NIHSS Performed: Baseline - How Severe is the [place] Level of Consciousness: 0=Alert LOC to Questions: 0=Both comments correct LOC to commands: 0=Obeys both correctly Best Gaze: 0=Normal Visual: 0=No visual loss Facial: 0=Normal Motor Arm - Left: 0=No drift Motor Arm - Right: 0=No drift Motor Leg - Left: 0=No drift Motor Leg - Right: 0=No drift Limb Ataxia: 0=Absent Sensory: 0=Normal Best Language: 0=No aphasia Dysarthia: 0=Normal articulation Extinction & Inattention (Neglect): 0=Normal, no object Score: 0 Severity Of Stroke: 0= No Stroke Medical Decision Making Medical Decision Making: Impression: A 66 y/o M c/o passing out at home [employer]. Pt notes he felt weak and dizzy and completely blacked out. Plans: -Blood labs -CT Head w/o -EKG -CXR -Protonix -IV fluids 01:10. Pt vomited coffee ground material. Angiotube inserted. Disposition Discussed With : Ryan Luque Doctor Will See Patient In The: Hospital Counseled Patient/Family Regarding: Diagnosis - Disposition Disposition: HOSPITALIZED Disposition Time: 02:21 Condition: STABLE - POA Present On Arrival: None - Clinical Impression Clinical Impression: Syncope, Diabetic ketosis, Urinary tract infection, GI bleeding - Scribe Statement The provider has reviewed the documentation as recorded by the Florenciaibe Susie beltran All medical record entries made by the Florenciaibe were at my direction and personally dictated by me. I have reviewed the chart and agree that the record accurately reflects my personal performance of the history, physical exam, medical decision making, and the department course for this patient. I have also personally directed, reviewed, and agree with the discharge instructions and disposition.
[2016-11-15 22:08] LABS: BASO % 0.1 % (0.0-2.0); HEMATOCRIT 35.3 % (35.0-51.0); LYMPH # 0.7 K/uL (1.0-4.3); MEAN CELL VOLUME 68.8 fL (80.0-94.0); MEAN CORPUSCULAR HEMOGLOBIN 21.1 pg (27.0-31.0); MEAN CORPUSCULAR HGB CONC 30.6 g/dL (33.0-37.0); MEAN PLATELET VOLUME 9.6 fL (7.2-11.7); MONO # 1.7 K/uL (0.0-0.8); MONO % 10.4 % (0.0-10.0); PLATELET COUNT 235 K/uL (130-400); RED CELL DISTRIBUTION WIDTH 20.8 % (11.5-14.5); WHITE BLOOD COUNT 16.7 K/uL (4.8-10.8)
[2016-11-15 22:15] LABS: CHLORIDE 90 mmol/L (98-107); POTASSIUM 4.2 mmol/L (3.6-5.2); SODIUM 135 mmol/L (132-148)
[2016-11-15 22:16] LABS: INR 1.2
[2016-11-15 22:17] LABS: GFR AFRICAN-AMERICAN > 60
[2016-11-15 22:18] LABS: ALB/GLOB RATIO 0.7 (1.0-2.1); ALKALINE PHOSPHATASE 118 U/L (38-126); ALT/SGPT 30 U/L (21-72); AST/SGOT 23 U/L (17-59); BILIRUBIN,TOTAL 1.2 mg/dL (0.2-1.3); BLOOD UREA NITROGEN 18 mg/dL (9-20); CARBON DIOXIDE 16 mmol/L (22-30); GLUCOSE,RANDOM 353 mg/dL (75-110); TOTAL PROTEIN 6.4 g/dL (6.3-8.3)
[2016-11-15 22:19] LABS: CALCIUM 8.4 mg/dl (8.6-10.4)
[2016-11-15] MEDS ORDERED: (Novolin R) Insulin Human Regular 100 units/ml vial SC ONE (22:45)
[2016-11-15] MEDS ORDERED: (Novolin R) Insulin Human Regular 100 units/ml vial ONE (22:51)
[2016-11-15] MEDS ORDERED: Sodium Chloride 0.9% 1,000 ML ONE (22:51)
[2016-11-15 23:04] LABS: NEUTROPHIL 44 % (50-75); TOTAL CELLS COUNTED 100
[2016-11-15 23:06] LABS: LARGE PLATELETS PRESENT
[2016-11-15 23:07] LABS: ARTERIAL BLOOD HGB O2 SAT 95.4 % (95.0-98.0); CARBOXYHEMOGLOBIN 0 % (0.5-1.5); DRAW SITE RBA; HHB 3.7 % (0.0-5.0); METHEMOGLOBIN 0.9 % (0.0-3.0)
[2016-11-15 23:07] LABS: PLATELET CLUMPS PRESENT
[2016-11-16 01:35] LABS: MEAN CELL VOLUME 68.7 fL (80.0-94.0); MEAN CORPUSCULAR HEMOGLOBIN 21.7 pg (27.0-31.0); MEAN CORPUSCULAR HGB CONC 31.6 g/dL (33.0-37.0); MEAN PLATELET VOLUME 9.3 fL (7.2-11.7); RED CELL DISTRIBUTION WIDTH 21.5 % (11.5-14.5); WHITE BLOOD COUNT 17.8 K/uL (4.8-10.8)
[2016-11-16] MEDS ORDERED: (Novolin R) Insulin Human Regular 100 units/ml vial IV STA (01:38)
[2016-11-16 01:55] LABS: CHLORIDE 89 mmol/L (98-107); POTASSIUM 3.2 mmol/L (3.6-5.2); SODIUM 136 mmol/L (132-148)
[2016-11-16 01:58] LABS: BLOOD UREA NITROGEN 19 mg/dL (9-20); CARBON DIOXIDE 20 mmol/L (22-30); GFR AFRICAN-AMERICAN > 60
[2016-11-16 01:59] LABS: CALCIUM 8.8 mg/dl (8.6-10.4); GLUCOSE,RANDOM 318 mg/dL (75-110)
[2016-11-16 02:08] LABS: RBC URINE 8 /hpf (0-3); URINE BACTERIA FEW (<OCC); URINE BILIRUBIN NEGATIVE (NEGATIVE); URINE BLOOD 1+ (NEGATIVE); URINE COLOR Yellow (YELLOW); URINE GLUCOSE (UA) 3+ mg/dL (Normal); URINE KETONE 2+ mg/dL (NEGATIVE); URINE LEUKOCYTE ESTERASE 3+ Leu/uL (Negative); URINE PROTEIN 2+ mg/dL (NEGATIVE); WBC CLUMPS MANY /hpf; WBC URINE 254 /hpf (0-5)
[2016-11-16] MEDS ORDERED: (Novolin R) Insulin Human Regular 100 units/ml vial ONE (02:09)
[2016-11-16] MEDS ORDERED: Ciprofloxacin 400mg/200ml D5W 400 MG/200 ML BAG IVPB STA (02:09)
[2016-11-16] MEDS ORDERED: Ciprofloxacin 400mg/200ml D5W 400 MG/200 ML BAG IVPB ONE (03:22)
[2016-11-16] MEDS ORDERED: Iodixanol 320 MG/ML 100 ML BOTTLE IV ONE (04:29)
[2016-11-16] MEDS ORDERED: Potassium Chloride 40 MEQ in Sodium Chloride 0.45% 1,000 ML IV SCH (05:00)
[2016-11-16 05:04] LABS: CHLORIDE 96 mmol/L (98-107); SODIUM 134 mmol/L (132-148)
[2016-11-16 05:05] LABS: POTASSIUM 3.5 mmol/L (3.6-5.2)
[2016-11-16 05:06] LABS: GFR AFRICAN-AMERICAN > 60; IRON 17 ug/dL (49-181)
[2016-11-16 05:07] LABS: ALB/GLOB RATIO 0.8 (1.0-2.1); ALKALINE PHOSPHATASE 106 U/L (38-126); ALT/SGPT 26 U/L (21-72); AST/SGOT 16 U/L (17-59); BILIRUBIN,TOTAL 0.9 mg/dL (0.2-1.3); BLOOD UREA NITROGEN 18 mg/dL (9-20); CALCIUM 7.1 mg/dl (8.6-10.4); CARBON DIOXIDE 22 mmol/L (22-30); GLUCOSE,RANDOM 187 mg/dL (75-110); PHOSPHOROUS 2.6 mg/dL (2.5-4.5); TOTAL PROTEIN 5.7 g/dL (6.3-8.3)
[2016-11-16 05:08] LABS: MAGNESIUM 1.4 mg/dL (1.6-2.3)
--- NOTE | 2016-11-16 05:41 | CP.PCM.HP ---
<Aliza Andujar E - Last Filed: 11/16/16 08:19> History of Present Illness - History of Present Illness History of Present Illness: CC: Syncope/fall. HPI: Patient is a 66 year old male with past medical history of HTN and diabetes who presented to the ED post-fall via EMS. Patient reports that he had a fall on his way out of the bathroom. Patient states that he felt weak and dizzy before his fall. Patient did not loss consciousness and had no head trauma. Patient reports that he has had previous falls. While in the ED, patient had 2 episodes of vomit, which was reported as coffee ground material, thus NGT was placed, draining out about 400cc of mixture of fluid with minimal blood and particles. Patient admits to having diarrhea that has been ongoing for 40 days, decrease PO intake and hematochezia two days ago. Patient admits to weakness, nausea but denies headache, chest pain, pain, injury, SOB, palpitations, diaphoresis, fever, chills. 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 Medications given in the ER: Pepcid 20mg IV, Insulin (Novolin R) 6 units, Protonix 40mg IV, Cipro 400mg IV, 0.9% NS @ 1000mls/hr Present on Admission - Present on Admission Any Indicators Present on Admission: No Review of Systems - Constitutional Constitutional: Weakness. absent: Chills - EENT Eyes: Blurred Vision, Change in Vision Ears: Dizziness Nose/Mouth/Throat: Dry Mouth - Cardiovascular Cardiovascular: Pedal Edema. absent: Chest Pain, Diaphoresis, Dyspnea, Lightheadedness, Palpitations - Respiratory Respiratory: absent: Dyspnea - Gastrointestinal Gastrointestinal: Diarrhea, Nausea, Vomiting. absent: Abdominal Pain - Genitourinary Genitourinary: absent: Pyuria, Urinary Frequency, Urinary Urgency - Neurological Neurological: Dizziness, Syncope, Weakness - Endocrine Endocrine: Fatigue. absent: Palpitations Past Patient History - Past Medical History & Family History Past Medical History?: No - Past Social History Smoking Status: Never Smoked - CARDIAC Hx Hypertension: Yes - PULMONARY Hx Respiratory Disorders: No - NEUROLOGICAL Hx Neurological Disorder: No - HEENT Hx HEENT Problems: No - RENAL Hx Chronic Kidney Disease: No - ENDOCRINE/METABOLIC Hx Diabetes Mellitus Type 2: Yes - HEMATOLOGICAL/ONCOLOGICAL Hx Blood Disorders: No Hx Blood Transfusions: No - INTEGUMENTARY Hx Dermatological Problems: No - MUSCULOSKELETAL/RHEUMATOLOGICAL Hx Falls: Yes - GASTROINTESTINAL Hx Gastrointestinal Disorders: No - GENITOURINARY/GYNECOLOGICAL Hx Genitourinary Disorders: No - PSYCHIATRIC Hx Substance Use: No - SURGICAL HISTORY Hx Surgeries: Yes - ANESTHESIA Hx Anesthesia: Yes Hx Anesthesia Reactions: No Hx Malignant Hyperthermia: No Meds Allergies/Adverse Reactions: Allergies Allergy/AdvReac Type Severity Reaction Status Date / Time No Known Allergies Allergy Verified 11/15/16 21:27 Physical Exam - Constitutional Appears: No Acute Distress - Head Exam Head Exam: ATRAUMATIC - Eye Exam Eye Exam: EOMI, Normal appearance - ENT Exam ENT Exam: Mucous Membranes Moist, Normal Exam - Respiratory Exam Respiratory Exam: Clear to Auscultation Bilateral, NORMAL BREATHING PATTERN - Cardiovascular Exam Cardiovascular Exam: REGULAR RHYTHM, +S1, +S2 - GI/Abdominal Exam GI & Abdominal Exam: Normal Bowel Sounds, Soft - Extremities Exam Extremities exam: Positive for: pedal edema. Negative for: calf tenderness - Neurological Exam Neurological exam: Alert, Oriented x3 - Psychiatric Exam Psychiatric exam: Normal Affect, Normal Mood - Skin Skin Exam: Intact, Normal Color, Warm Results - Vital Signs Recent Vital Signs: Last Vital Signs Temp 97.5 F L 11/16/16 01:12 Pulse 111 H 11/16/16 03:19 Resp 17 11/16/16 03:19 BP 119/70 11/16/16 03:19 Pulse Ox 98 11/16/16 03:19 - Labs Result Diagrams: 11/16/16 05:42 11/16/16 04:40 Assessment & Plan (1) Syncope Assessment and Plan: Possibly secondary to weakness * NS 0.9% @ 100mls/hr * Head CT: No evidence of acute hemorrhage or suspected mass. Status: Acute (2) Chronic diarrhea Assessment and Plan: GI consult (Dr. Srivastava)---> Help appreciated General Surgery Consult (Dr. Amin)----> Help appreciated Urology Consult ( Dr. Jon)----> Help appreciated * All consulted due to unofficial read of CT Scan of chest/abdomen/pelvis: Intra -abdominal abscess/malignancy and bladder wall thickening * Still pending official radiologist report NS 0.9%@ 100MLS/HR f/U Stool culture, stool Leukocytes f/U Ova and parasites f/u C. diffi toxin AB f/u CT chest/abdomen/pelvis: Status: Acute (3) Hypokalemia Assessment and Plan: K+ : 3.2 * kCl 20meq IV * Monitor Status: Acute (4) Leukocytosis (leucocytosis) Assessment and Plan: Trending down Afebrile On admission: WBC: 16.7 After IVF: 12.6 Monitor with CBC Status: Acute (5) Urinary tract infection Assessment and Plan: UA: Leukocytes esterase : 2+ WBC: 187 Yeast Budding: (positive) * Fluconazole 100mg IVPB daily Status: Acute (6) Metabolic acidosis, increased anion gap Assessment and Plan: Improving with IVF Secondary to ketosis On admission: 33 After NS 0.9% @ 100mls/hr: 20 Status: Acute (7) Hypertension Assessment and Plan: Continue home medication * Lisinopril 5mg PO daily * Monitor Status: Chronic (8) Uncontrolled diabetes mellitus Assessment and Plan: Recent HgbA1C: 9.0 (09/28/16) Accuchecks ISS Levemir 15 units Hold glipizide Monitor Status: Chronic (9) Prophylactic measure Assessment and Plan: SCD ( Contraindicated due to LE edema) Pepcid IV 20mg Q12H Status: Acute <Ryan Luque P - Last Filed: 11/17/16 06:17> Results - Vital Signs Recent Vital Signs: Last Vital Signs Temp 97.5 F L 11/17/16 00:00 Pulse 99 H 11/17/16 04:00 Resp 20 11/17/16 00:00 BP 104/70 11/17/16 00:00 Pulse Ox 95 11/17/16 00:00 - Labs Result Diagrams: 11/16/16 05:42 11/16/16 04:40 Labs: Laboratory Results - last 24 hr 11/16/16 11/16/16 11/16/16 04:40 04:40 04:41 Neutrophils % (Manual) Band Neutrophils % Lymphocytes % (Manual) Monocytes % (Manual) Toxic Granulation Platelet Estimate Large Platelets Polychromasia Hypochromasia (manual) Poikilocytosis (manual Anisocytosis (manual) Ovalocytes [place]rica Cells Schistocytes Sodium 134 Potassium 3.5 L Chloride 96 L Carbon Dioxide 22 Anion Gap 20 BUN 18 Creatinine 0.4 L Est GFR ( Amer) > 60 Est GFR (Non-Af Amer) > 60 POC Glucose (mg/dL) Random Glucose 187 H Serum Osmolality 302 H Lactic Acid 2.1 Calcium 7.1 L Phosphorus 2.6 Magnesium 1.4 L Ferritin 165.0 Total Bilirubin 0.9 AST 16 L D ALT 26 Alkaline Phosphatase 106 C-React Prot High Sens > 15.00 H Total Protein 5.7 L Albumin 2.5 L Globulin 3.2 Albumin/Globulin Ratio 0.8 L CA 19-9 Antigen < 1.4 Urine Color Urine Clarity Urine pH Ur Specific [place] Urine Protein Urine Glucose (UA) Urine Ketones Urine Blood Urine Nitrate Urine Bilirubin Urine Urobilinogen Ur Leukocyte Esterase Urine WBC (Auto) Urine RBC (Auto) Urine WBC Clumps (Auto) Ur Squamous Epith Cells Urine Bacteria Urine Yeast (Budding) Stool Leukocytes, Qual C. difficile Ag & Toxin 11/16/16 11/16/16 11/16/16 05:42 06:19 06:44 Neutrophils % (Manual) 63 Band Neutrophils % 14 H* Lymphocytes % (Manual) 15 L Monocytes % (Manual) 8 Toxic Granulation Present Platelet Estimate Normal Large Platelets Present Polychromasia Slight Hypochromasia (manual) Slight Poikilocytosis (manual Slight Anisocytosis (manual) Moderate Ovalocytes Moderate [place] Cells Slight Schistocytes Slight Sodium Potassium Chloride Carbon Dioxide Anion Gap BUN Creatinine Est GFR ( Amer) Est GFR (Non-Af Amer) POC Glucose (mg/dL) 122 H Random Glucose Serum Osmolality Lactic Acid Calcium Phosphorus Magnesium Ferritin Total Bilirubin AST ALT Alkaline Phosphatase C-React Prot High Sens Total Protein Albumin Globulin Albumin/Globulin Ratio CA 19-9 Antigen Urine Color [place] Urine Clarity Hazy Urine pH 5.0 Ur Specific [place] 1.027 Urine Protein 2+ H Urine Glucose (UA) 1+ H Urine Ketones 2+ H Urine Blood Negative Urine Nitrate Negative Urine Bilirubin 1+ H Urine Urobilinogen 4.0 Ur Leukocyte Esterase 2+ H Urine WBC (Auto) 187 H Urine RBC (Auto) 34 H Urine WBC Clumps (Auto) Few H Ur Squamous Epith Cells < 1 Urine Bacteria Mod H Urine Yeast (Budding) Few H Stool Leukocytes, Qual C. difficile Ag & Toxin 11/16/16 11/16/16 11/16/16 12:36 16:00 21:40 Neutrophils % (Manual) Band Neutrophils % Lymphocytes % (Manual) Monocytes % (Manual) Toxic Granulation Platelet Estimate Large Platelets Polychromasia Hypochromasia (manual) Poikilocytosis (manual Anisocytosis (manual) Ovalocytes [place] Cells Schistocytes Sodium Potassium Chloride Carbon Dioxide Anion Gap BUN Creatinine Est GFR ( Amer) Est GFR (Non-Af Amer) POC Glucose (mg/dL) 193 H 200 H 78 Random Glucose Serum Osmolality Lactic Acid Calcium Phosphorus Magnesium Ferritin Total Bilirubin AST ALT Alkaline Phosphatase C-React Prot High Sens Total Protein Albumin Globulin Albumin/Globulin Ratio CA 19-9 Antigen Urine Color Urine Clarity Urine pH Ur Specific [place] Urine Protein Urine Glucose (UA) Urine Ketones Urine Blood Urine Nitrate Urine Bilirubin Urine Urobilinogen Ur Leukocyte Esterase Urine WBC (Auto) Urine RBC (Auto) Urine WBC Clumps (Auto) Ur Squamous Epith Cells Urine Bacteria Urine Yeast (Budding) Stool Leukocytes, Qual C. difficile Ag & Toxin 11/16/16 11/16/16 Unknown Unknown Neutrophils % (Manual) Band Neutrophils % Lymphocytes % (Manual) Monocytes % (Manual) Toxic Granulation Platelet Estimate Large Platelets Polychromasia Hypochromasia (manual) Poikilocytosis (manual Anisocytosis (manual) Ovalocytes Jerrica Cells Schistocytes Sodium Potassium Chloride Carbon Dioxide Anion Gap BUN Creatinine Est GFR ( Amer) Est GFR (Non-Af Amer) POC Glucose (mg/dL) Random Glucose Serum Osmolality Lactic Acid Calcium Phosphorus Magnesium Ferritin Total Bilirubin AST ALT Alkaline Phosphatase C-React Prot High Sens Total Protein Albumin Globulin Albumin/Globulin Ratio CA 19-9 Antigen Urine Color Urine Clarity Urine pH Ur Specific [place] Urine Protein Urine Glucose (UA) Urine Ketones Urine Blood Urine Nitrate Urine Bilirubin Urine Urobilinogen Ur Leukocyte Esterase Urine WBC (Auto) Urine RBC (Auto) Urine WBC Clumps (Auto) Ur Squamous Epith Cells Urine Bacteria Urine Yeast (Budding) Stool Leukocytes, Qual Negative C. difficile Ag & Toxin Negative Attending/Attestation - Attestation I have personally seen and examined this patient.: Yes I have fully participated in the care of the patient.: Yes I have reviewed all pertinent clinical information: Yes Notes (Text): Assessment Uncontrolled type 2 dm Chronic diarrhea with malabsorption low albumin Near syncope due to above UTI suspected Yeast inf Abd/pelvis CT pending readiologist report, suspected pancreatic cyst, colonic cyst/abscess/mass, right hydroneprhonsis Anion gap from ketosis and mild lactic acidosis improved with ivf Plan Isotonic ivf replace electrolytes Zosyn, diflucan Surgery/Gi consult Start levemir, +sliding scale coverage Hold OHA PPI See orders for detail.
[2016-11-16 05:46] LABS: BASO % 0.1 % (0.0-2.0); HEMATOCRIT 31.8 % (35.0-51.0); LYMPH # 1.2 K/uL (1.0-4.3); LYMPH % 9.3 % (20.0-40.0); MEAN CORPUSCULAR HEMOGLOBIN 21.3 pg (27.0-31.0); MEAN CORPUSCULAR HGB CONC 31.3 g/dL (33.0-37.0); MEAN PLATELET VOLUME 8.9 fL (7.2-11.7); MONO # 1.3 K/uL (0.0-0.8); PLATELET COUNT 178 K/uL (130-400); RED CELL DISTRIBUTION WIDTH 20.5 % (11.5-14.5); WHITE BLOOD COUNT 12.6 K/uL (4.8-10.8)
[2016-11-16 06:30] LABS: RBC URINE 34 /hpf (0-3); URINE BACTERIA MOD (<OCC); URINE BILIRUBIN 1+ (NEGATIVE); URINE BLOOD NEGATIVE (NEGATIVE); URINE COLOR Amber (YELLOW); URINE GLUCOSE (UA) 1+ mg/dL (Normal); URINE KETONE 2+ mg/dL (NEGATIVE); URINE LEUKOCYTE ESTERASE 2+ Leu/uL (Negative); URINE PROTEIN 2+ mg/dL (NEGATIVE); WBC CLUMPS FEW /hpf; WBC URINE 187 /hpf (0-5)
[2016-11-16 06:58] LABS: OSMOLALITY,SERUM 302 mosm/kg (272-300)
--- NOTE | 2016-11-16 07:05 | CP.PCM.PN ---
Subjective - Date & Time of Evaluation Date of Evaluation: 11/16/16 Time of Evaluation: 05:00 - Subjective Subjective: Assessment * Uncontrolled type 2 dm * Chronic diarrhea with malabsorption low albumin * Near syncope due to above * UTI suspected Yeast inf * Abd/pelvis CT pending readiologist report, suspected pancreatic cyst, colonic cyst/abscess/mass, right hydroneprhonsis * Anion gap from ketosis and mild lactic acidosis improved with ivf Plan * Isotonic ivf * replace electrolytes * Zosyn, diflucan * Surgery/Gi consult * Start levemir, +sliding scale coverage * Hold OHA * PPI * See orders for detail. Objective - Vital Signs/Intake and Output Vital Signs (last 24 hours): Temp Pulse Resp BP Pulse Ox 97.5 F L 112 H 15 100/61 96 11/16/16 01:12 11/16/16 04:49 11/16/16 04:49 11/16/16 04:49 11/16/16 04:49 Intake and Output: 11/15/16 11/16/16 18:59 06:59 Intake Total 1250 Output Total 750 Balance 500 - Medications Medications: Current Medications Famotidine (Pepcid) 20 mg IVP Q12 [facility] Sodium Chloride (Sodium Chloride 0.9%) 1,000 mls @ 100 mls/hr IV .Q10H ONE Stop: 11/16/16 07:58 Last Admin: 11/15/16 22:56 Dose: 100 mls/hr Potassium Chloride 20 meq/ (Sodium Chloride) 1,010 mls @ 100 mls/hr IV .Q10H6M [facility] Last Admin: 11/16/16 06:27 Dose: 100 mls/hr Fluconazole 100 mg/ (Miscellaneous) 50 mls @ 100 mls/hr IVPB DAILY [facility] Piperacillin Sod/Tazobactam Sod (Zosyn 3.375 Gm Iv Premix) 3.375 gm in 50 mls @ 100 mls/hr IVPB Q6H [facility] Ondansetron HCl (Zofran Inj) 4 mg IVP Q6H PRN PRN Reason: Nausea/Vomiting - Labs Labs: 11/16/16 05:42 11/16/16 04:40 PT 13.7 SECONDS (9.7-12.2) H 11/15/16 22:04 INR 1.2 11/15/16 22:04 APTT 19 SECONDS (21-34) L 11/15/16 22:04
[2016-11-16] MEDS: (Novolog) Insulin Aspart, Recombinant 100 u/ml 10 ml vial SC SCH ×4 (08:12→21:56)
[2016-11-16] MEDS: Magnesium Sulfate 1 gm in D5W 1 GM/100 ML BAG IVPB SCH ×2 (08:17→10:06)
--- NOTE | 2016-11-16 08:37 | CT ---
PROCEDURE: CT HEAD WITHOUT CONTRAST. HISTORY: Headache COMPARISON: Comparison is made to the previous study dated 10/14/2016 TECHNIQUE: Axial computed tomography images were obtained through the head/brain without intravenous contrast. Radiation dose: Total exam DLP = 1044.64 mGy-cm. This CT exam was performed using one or more of the following dose reduction techniques: Automated exposure control, adjustment of the mA and/or kV according to patient size, and/or use of iterative reconstruction technique. FINDINGS: HEMORRHAGE: No intracranial hemorrhage. BRAIN: No mass effect or edema. Again seen extra-axial cystic structure at the anterior aspect of the left middle fossa likely represent arachnoid cyst. [id number] atrophy and mild chronic microvascular white matter ischemic disease are again noted. VENTRICLES: Unremarkable. No hydrocephalus. CALVARIUM: Unremarkable. PARANASAL SINUSES: Unremarkable as visualized. No significant inflammatory changes. MASTOID AIR CELLS: Unremarkable as visualized. No inflammatory changes. OTHER FINDINGS: None. IMPRESSION: No evidence of acute intracranial hemorrhage intracranial collection mass effect or midline shift. [id number] atrophy and mild chronic microvascular ischemic disease. Preliminary report was submitted by [facility].
[2016-11-16] MEDS ORDERED: Potassium Chloride 20 mEq/15 ml LIQ UD PO ONE (08:45)
[2016-11-16 09:03] LABS: NEUTROPHIL 63 % (50-75); TOTAL CELLS COUNTED 100
[2016-11-16 09:05] LABS: LARGE PLATELETS PRESENT
[2016-11-16] MEDS: Piperacill/Tazo 3.375gm in Dex 3.375 GM/50 ML BAG IVPB SCH ×3 (09:17→18:33)
--- NOTE | 2016-11-16 09:55 | CP.PCM.CON ---
History of Present Illness - History of Present Illness History of Present Illness: Surgery: Dr. Amin Reason for consult: possible mass in colon, abscess CC: Diarrhea for 45 days HPI: Patient is a 66 y/o male w/ pmhx of IDDM, HTN, and HLD presents complaining of "near passing out" episode yesterday. Patient states that he has not felt well over the past 45 days and reports persistent diarrhea. He denies seeing blood in the stool but states he did vomit yesterday and he notice blood streaked in his emesis. He describes the diarrhea as liquid, no blood, and multiple episodes daily. He denies strange food types or travel. He reports decreased appetite and poor PO intake. He denies f/c. He denies having colonoscopy in the past. He denies having symptoms or episodes of diverticulitis in the past. PMH: HTN, HLD, IDDM PSH: denies Social: reports never using tobacco, denies ETOH or drug abuse Family: reports mother for heart problems. Denies family history of colon, lung, prostate cancers Review of Systems - Review of Systems All systems: reviewed and no additional remarkable complaints except Review of Systems: unless stated in hpi Past Patient History - Past Medical History & Family History Past Medical History?: No - Past Social History Smoking Status: Never Smoked - CARDIAC Hx Hypertension: Yes - PULMONARY Hx Respiratory Disorders: No - NEUROLOGICAL Hx Neurological Disorder: No - HEENT Hx HEENT Problems: No - RENAL Hx Chronic Kidney Disease: No - ENDOCRINE/METABOLIC Hx Diabetes Mellitus Type 2: Yes - HEMATOLOGICAL/ONCOLOGICAL Hx Blood Disorders: No Hx Blood Transfusions: No - INTEGUMENTARY Hx Dermatological Problems: No - MUSCULOSKELETAL/RHEUMATOLOGICAL Hx Falls: Yes - GASTROINTESTINAL Hx Gastrointestinal Disorders: No - GENITOURINARY/GYNECOLOGICAL Hx Genitourinary Disorders: No - PSYCHIATRIC Hx Substance Use: No - SURGICAL HISTORY Hx Surgeries: Yes - ANESTHESIA Hx Anesthesia: Yes Hx Anesthesia Reactions: No Hx Malignant Hyperthermia: No Meds Allergies/Adverse Reactions: Allergies Allergy/AdvReac Type Severity Reaction Status Date / Time No Known Allergies Allergy Verified 11/15/16 21:27 - Medications Medications: Current Medications Famotidine (Pepcid) 20 mg IVP Q12 [facility] Potassium Chloride 20 meq/ (Sodium Chloride) 1,010 mls @ 100 mls/hr IV .Q10H6M [facility] Last Admin: 11/16/16 06:27 Dose: 100 mls/hr Fluconazole 100 mg/ (Miscellaneous) 50 mls @ 100 mls/hr IVPB DAILY [facility] Piperacillin Sod/Tazobactam Sod (Zosyn 3.375 Gm Iv Premix) 3.375 gm in 50 mls @ 100 mls/hr IVPB Q6H [facility] Last Admin: 11/16/16 09:17 Dose: 100 mls/hr Insulin Aspart (Novolog) 0 unit SC ACHS [facility] PRN Reason: Protocol Last Admin: 11/16/16 08:12 Dose: Not Given Ondansetron HCl (Zofran Inj) 4 mg IVP Q6H PRN PRN Reason: Nausea/Vomiting Physical Exam - Constitutional Appears: Non-toxic, No Acute Distress - Head Exam Head Exam: ATRAUMATIC, NORMOCEPHALIC - Eye Exam Eye Exam: EOMI, Normal appearance - ENT Exam ENT Exam: Mucous Membranes Moist - Respiratory Exam Respiratory Exam: NORMAL BREATHING PATTERN. absent: Respiratory Distress - Cardiovascular Exam Cardiovascular Exam: Tachycardia, REGULAR RHYTHM - GI/Abdominal Exam GI & Abdominal Exam: Soft. absent: Distended, Guarding, Hernia, Rebound, Tenderness - Extremities Exam Extremities exam: Positive for: pedal edema. Negative for: calf tenderness - Neurological Exam Neurological exam: Alert, Oriented x3 - Psychiatric Exam Psychiatric exam: Flat Affect, Normal Mood - Skin Skin Exam: Dry, Pallor, Warm Results - Vital Signs Recent Vital Signs: Last Vital Signs Temp 97.9 F 11/16/16 08:48 Pulse 100 H 11/16/16 08:48 Resp 18 11/16/16 08:48 BP 110/76 11/16/16 08:48 Pulse Ox 96 11/16/16 06:35 - Labs Result Diagrams: 11/16/16 05:42 11/16/16 04:40 Labs: Laboratory Results - last 24 hr 11/16/16 11/16/16 11/16/16 04:40 04:40 04:40 WBC RBC Hgb Hct MCV MCH MCHC RDW Plt Count MPV Neut % (Auto) Lymph % (Auto) [place] % (Auto) Eos % (Auto) Baso % (Auto) Neut # Lymph # [place] # Eos # Baso # Neutrophils % (Manual) Band Neutrophils % Lymphocytes % (Manual) Monocytes % (Manual) Toxic Granulation Platelet Estimate Large Platelets Polychromasia Hypochromasia (manual) Poikilocytosis (manual Anisocytosis (manual) Ovalocytes Jerrica Cells Schistocytes Sodium 134 Potassium 3.5 L Chloride 96 L Carbon Dioxide 22 Anion Gap 20 BUN 18 Creatinine 0.4 L Est GFR ( Amer) > 60 Est GFR (Non-Af Amer) > 60 POC Glucose (mg/dL) Random Glucose 187 H Serum Osmolality 302 H Lactic Acid Calcium 7.1 L Phosphorus 2.6 Magnesium 1.4 L Iron 17 L TIBC 182 L % Saturation 10 L Ferritin 165.0 Total Bilirubin 0.9 AST 16 L D ALT 26 Alkaline Phosphatase 106 C-React Prot High Sens > 15.00 H Total Protein 5.7 L Albumin 2.5 L Globulin 3.2 Albumin/Globulin Ratio 0.8 L Urine Color Urine Clarity Urine pH Ur Specific [place] Urine Protein Urine Glucose (UA) Urine Ketones Urine Blood Urine Nitrate Urine Bilirubin Urine Urobilinogen Ur Leukocyte Esterase Urine WBC (Auto) Urine RBC (Auto) Urine WBC Clumps (Auto) Ur Squamous Epith Cells Urine Bacteria Urine Yeast (Budding) 11/16/16 11/16/16 11/16/16 04:41 05:42 06:19 WBC 12.6 H RBC 4.67 Hgb 9.9 L D Hct 31.8 L MCV 68.0 L MCH 21.3 L MCHC 31.3 L RDW 20.5 H Plt Count 178 D MPV 8.9 Neut % (Auto) 80.6 H Lymph % (Auto) 9.3 L [place] % (Auto) 10.0 Eos % (Auto) 0.0 Baso % (Auto) 0.1 Neut # 10.1 H Lymph # 1.2 [place] # 1.3 H Eos # 0.0 Baso # 0.0 Neutrophils % (Manual) 63 Band Neutrophils % 14 H* Lymphocytes % (Manual) 15 L Monocytes % (Manual) 8 Toxic Granulation Present Platelet Estimate Normal Large Platelets Present Polychromasia Slight Hypochromasia (manual) Slight Poikilocytosis (manual Slight Anisocytosis (manual) Moderate Ovalocytes Moderate Jerrica Cells Slight Schistocytes Slight Sodium Potassium Chloride Carbon Dioxide Anion Gap BUN Creatinine Est GFR ( Amer) Est GFR (Non-Af Amer) POC Glucose (mg/dL) Random Glucose Serum Osmolality Lactic Acid 2.1 Calcium Phosphorus Magnesium Iron TIBC % Saturation Ferritin Total Bilirubin AST ALT Alkaline Phosphatase C-React Prot High Sens Total Protein Albumin Globulin Albumin/Globulin Ratio Urine Color Isabel Urine Clarity Hazy Urine pH 5.0 Ur Specific [place] 1.027 Urine Protein 2+ H Urine Glucose (UA) 1+ H Urine Ketones 2+ H Urine Blood Negative Urine Nitrate Negative Urine Bilirubin 1+ H Urine Urobilinogen 4.0 Ur Leukocyte Esterase 2+ H Urine WBC (Auto) 187 H Urine RBC (Auto) 34 H Urine WBC Clumps (Auto) Few H Ur Squamous Epith Cells < 1 Urine Bacteria Mod H Urine Yeast (Budding) Few H 11/16/16 06:44 WBC RBC Hgb Hct MCV MCH MCHC RDW Plt Count MPV Neut % (Auto) Lymph % (Auto) [place] % (Auto) Eos % (Auto) Baso % (Auto) Neut # Lymph # [place] # Eos # Baso # Neutrophils % (Manual) Band Neutrophils % Lymphocytes % (Manual) Monocytes % (Manual) Toxic Granulation Platelet Estimate Large Platelets Polychromasia Hypochromasia (manual) Poikilocytosis (manual Anisocytosis (manual) Ovalocytes [place] Cells Schistocytes Sodium Potassium Chloride Carbon Dioxide Anion Gap BUN Creatinine Est GFR ( Amer) Est GFR (Non-Af Amer) POC Glucose (mg/dL) 122 H Random Glucose Serum Osmolality Lactic Acid Calcium Phosphorus Magnesium Iron TIBC % Saturation Ferritin Total Bilirubin AST ALT Alkaline Phosphatase C-React Prot High Sens Total Protein Albumin Globulin Albumin/Globulin Ratio Urine Color Urine Clarity Urine pH Ur Specific [place] Urine Protein Urine Glucose (UA) Urine Ketones Urine Blood Urine Nitrate Urine Bilirubin Urine Urobilinogen Ur Leukocyte Esterase Urine WBC (Auto) Urine RBC (Auto) Urine WBC Clumps (Auto) Ur Squamous Epith Cells Urine Bacteria Urine Yeast (Budding) - Impressions Impression: Ct: findings suggestive of sigmoid mass w/ possible extension into bladder. See full report for all findings. Assessment & Plan - Assessment and Plan (Free Text) Assessment: 66 y/o male w/ diarrhea and Ct findings suggestive of sigmoid mass Plan: -IV abx -IVFs -pain/nausea medication -ok for diet from surgical standpoint at this time -recommend GI and Urology evaluation for CT scan findings concerning for malignancy -pending their recs and work-up determines further surgical intervention -f/u stool studies -daily labs -monitor for bleeding episodes -GI prophylaxis -d/w Dr. Amin [facility] PGY3
[2016-11-16] MEDS ORDERED: Magnesium Sulfate 1 gm in D5W 1 GM/100 ML BAG IVPB SCH (10:00)
[2016-11-16] MEDS: Fluconazole IV 200mg/100 ml NS 100 MG in Premixed IV 1 EA IVPB SCH (10:02)
--- NOTE | 2016-11-16 10:07 | CP.PCM.PN ---
Subjective - Date & Time of Evaluation Date of Evaluation: 11/16/16 Time of Evaluation: 10:00 - Subjective Subjective: I brought the computer translation service into the room. He explains that he has been having a lot of diarrhea recently. He was going to the bathroom in the dark and as he was comming out he felt so weak he passed out and fell. Reports decrease PO intake. He feels tired, dry, dehydrated. He denied having pain anywhere. He initially told the morning team that he did not hit his head but he seems to have changed his story and tells me he did. On the CT scan of the abdomen and pelvis was done, pending official read at this time but he appear to have a pancreatic mass/lesion/abcess as well as a mass near his colon. There was some concern if the lowe that was placed had damaged the bladder wall because of the way it looked on the CT - however came and I looked and there is clear yellow urine, no debris, he also denied penile and denied suprapubic pain. When in the ER he vomitted twice, which looked semi dark and they NGT was placed , reportedly about 400cc of mixture of fluid with minimal blood and particles. When I saw the patient on the floors he no longer had the NGT. Objective - Vital Signs/Intake and Output Vital Signs (last 24 hours): Temp Pulse Resp BP Pulse Ox 97.9 F 100 H 18 110/76 96 11/16/16 08:48 11/16/16 08:48 11/16/16 08:48 11/16/16 08:48 11/16/16 06:35 Intake and Output: 11/16/16 11/16/16 06:59 18:59 Intake Total 1250 Output Total 750 Balance 500 - Medications Medications: Current Medications Famotidine (Pepcid) 20 mg IVP Q12 DOREEN Last Admin: 11/16/16 10:02 Dose: 20 mg Potassium Chloride 20 meq/ (Sodium Chloride) 1,010 mls @ 100 mls/hr IV .Q10H6M DOREEN Last Admin: 11/16/16 06:27 Dose: 100 mls/hr Fluconazole 100 mg/ (Miscellaneous) 50 mls @ 100 mls/hr IVPB DAILY [facility] Last Admin: 11/16/16 10:02 Dose: 100 mls/hr Piperacillin Sod/Tazobactam Sod (Zosyn 3.375 Gm Iv Premix) 3.375 gm in 50 mls @ 100 mls/hr IVPB Q6H [facility] Last Admin: 11/16/16 09:17 Dose: 100 mls/hr Magnesium Sulfate/Dextrose (Magnesium Sulfate 1 Gm/100 Ml D5w) 1 gm in 100 mls @ 100 mls/hr IVPB Q30M [facility] Stop: 11/16/16 10:29 Insulin Aspart (Novolog) 0 unit SC ACHS DOREEN PRN Reason: Protocol Last Admin: 11/16/16 08:12 Dose: Not Given Ondansetron HCl (Zofran Inj) 4 mg IVP Q6H PRN PRN Reason: Nausea/Vomiting - Labs Labs: 11/16/16 05:42 11/16/16 04:40 PT 13.7 SECONDS (9.7-12.2) H 11/15/16 22:04 INR 1.2 11/15/16 22:04 APTT 19 SECONDS (21-34) L 11/15/16 22:04 - Constitutional Appears: No Acute Distress, Unkempt, Older Than Stated Age, Cachectic, Chronically Ill - Head Exam Head Exam: NORMAL INSPECTION - Eye Exam Eye Exam: EOMI, Normal appearance - ENT Exam ENT Exam: Mucous Membranes Dry - Respiratory Exam Respiratory Exam: Clear to Ausculation Bilateral, NORMAL BREATHING PATTERN - Cardiovascular Exam Cardiovascular Exam: REGULAR RHYTHM - GI/Abdominal Exam GI & Abdominal Exam: Soft, Normal Bowel Sounds. absent: Tenderness Additional comments: He did not have pain - Neurological Exam Neurological Exam: Alert, Awake, CN II-XII Intact, Oriented x3 Neuro motor strength exam: Left Upper Extremity: 5, Right Upper Extremity: 5 - Psychiatric Exam Psychiatric exam: Depressed, Flat Affect - Skin Skin Exam: Normal Color, Warm Assessment and Plan - Assessment and Plan (Free Text) Assessment: Assessment & Plan (1) Syncope Assessment and Plan: 11/16: Continue with the IVF, he reports diarrhea, also the patient reports poor PO intake. He looks dry on exam. He recently had an echo done on 10/[address] well. His head CT was negative Also stop the blood pressure medication (2) Chronic diarrhea Assessment and Plan: 11/16: Pending CT of abd / pelvis results. The appears to be a possible pancreatic area mass as well as colonic mass. The night team has already ordered tumor markers as well as stool studies. Abx were also ordered and the WBC decreased. GI consult (Dr. Srivastava)---> Help appreciated General Surgery Consult (Dr. Amin)----> Help appreciated Urology Consult ( Dr. Jon)----> Help appreciated * All consulted due to unofficial read of CT Scan of chest/abdomen/pelvis: Intra -abdominal abscess/malignancy and bladder wall thickening * Still pending official radiologist report NS 0.9%@ 100MLS/HR f/U Stool culture, stool Leukocytes f/U Ova and parasites f/u C. diffi toxin AB f/u CT chest/abdomen/pelvis: (3) Hypokalemia Assessment and Plan: K+ : 3.2 * kCl 20meq IV * Monitor (4) Leukocytosis (leucocytosis) Assessment and Plan: 11/16: Monitor blood and stool studies. Currently on IV abx and IVF. WBC down to 12.6, was 17 on admission (5) Urinary tract infection Assessment and Plan: UA: Leukocytes esterase : 2+ WBC: 187 Yeast Budding: (positive) * Fluconazole 100mg IVPB daily (6) Metabolic acidosis, increased anion gap Assessment and Plan: Improving with IVF Secondary to ketosis On admission: 33 After NS 0.9% @ 100mls/hr: 20 (7) Hypertension Assessment and Plan: 11/16: Will hold lisnopril at this time (8) Uncontrolled diabetes mellitus Assessment and Plan: Recent HgbA1C: 9.0 (09/28/16) Accuchecks ISS Levemir 15 units Hold glipizide (9) Prophylactic measure Assessment and Plan: SCD ( Contraindicated due to LE edema) Pepcid IV 20mg Q12H
--- NOTE | 2016-11-16 10:30 | CT ---
PROCEDURE: CT Chest, Abdomen and Pelvis with intravenous contrast HISTORY: chronic diarrhea, vomiting COMPARISON: None. TECHNIQUE: IV dose administered: 100 mL Visipaque [id number]. Axial and reformatted coronal and sagittal CT images of the chest abdomen and pelvis were obtained after IV contrast administration. Radiation dose: Total exam DLP = 647.48 mGy-cm. This CT exam was performed using one or more of the following dose reduction techniques: Automated exposure control, adjustment of the mA and/or kV according to patient size, and/or use of iterative reconstruction technique. FINDINGS: CT CHEST WITH CONTRAST: LUNGS: Small opacities at the lung bases likely atelectasis. The upper lobes are clear. MEDIASTINUM: Unremarkable. Normal caliber aorta and pulmonary arterial trunk. No aortic dissection. Normal size heart. LYMPH NODES: Unremarkable. PLEURA: Unremarkable. No pneumothorax. No pleural fluid. BONES: Unremarkable. OTHER FINDINGS: None. CT ABDOMEN AND PELVIS: LIVER: Unremarkable. No gross lesion or ductal dilatation. GALLBLADDER AND BILE DUCTS: Large gallstones are seen. No evidence of acute cholecystitis. The common bile duct is not dilated. PANCREAS: There is cystic lesion at the pancreatic body measures 11.8 centimeter in the transverse diameter and 6.2 centimeter in the AP diameter contains small peripheral calcification. Findings suspicious for pseudocyst. There are mild inflammatory changes adjacent to the pancreatic head. The possibility of pancreatitis is is not totally excluded. SPLEEN: Unremarkable. ADRENALS: Unremarkable. No mass. KIDNEYS AND URETERS: The kidneys enhance symmetrically. There is mild right-sided hydronephrosis. There is a small cyst seen at the mid to upper pole left kidney measures 1.8 centimeter. VASCULATURE: Unremarkable. No aortic aneurysm. BOWEL: There is suspicious for mass lesion at the sigmoid and proximal rectum. The possibility of malignant neoplasm should be considered. There is adjacent enhancing wall fluid collection measures 9.7 centimeter in the AP diameter and 7.5 centimeter in the transverse diameter contains air suspicious for abscess formation could be due to contained perforation. There is no evidence of high-grade bowel obstruction. There is also fluid collection contains air at the right lower abdomen measures 8 x 5.2 centimeter. APPENDIX: Normal appendix. PERITONEUM: Unremarkable. No free fluid. No free air. LYMPH NODES: Mildly enlarged mesenteric lymph nodes seen at the mid and lower abdomen adjacent to the suspicious sigmoid colon mass. BLADDER: The bladder is collapsed around the Huerta catheter and displaced to the right due to sigmoid rectal mass and adjacent presumed abscess formation. REPRODUCTIVE: Unremarkable. BONES: No acute fracture. OTHER FINDINGS: None. IMPRESSION: Suspicious for sigmoid and proximal rectum mass lesion. The possibility of sigmoid colon cancer should be considered. Further assessment is recommended. No evidence of high-grade bowel obstruction. Two enhancing wall fluid collections contain air at the midline pelvis and right lower abdomen highly suspicious for abscess formation. Cystic mass lesion at the pancreas with thin wall contains foci of calcification suspicious for pseudo pancreatic cyst. Fat stranding surrounding the pancreatic tail. Correlate clinically for pancreatitis. Large gallstones without evidence of acute cholecystitis. Preliminary report was submitted by [facility].
[2016-11-16 11:05] LABS: CA 19-9 < 1.4 U/mL (0-37)
--- NOTE | 2016-11-16 11:16 | RAD ---
HISTORY: syncope COMPARISON: Comparison is made to 10/14/2016 FINDINGS: LUNGS: No active pulmonary disease. PLEURA: No significant pleural effusion identified, no pneumothorax apparent. CARDIOVASCULAR: Normal. OSSEOUS STRUCTURES: No significant abnormalities. VISUALIZED UPPER ABDOMEN: Normal. OTHER FINDINGS: None. IMPRESSION: No active disease.
--- NOTE | 2016-11-16 11:52 | CP.PCM.CON ---
<Sage Rosenberg - Last Filed: 11/16/16 11:52> History of Present Illness - History of Present Illness History of Present Illness: PGY5 GI Fellow Consult Note Patient is a 66yo male with PMHx significant for DM and HTN who presented to the ED following a fall at home. States he was walking form bathroom when he became fatigued, lightheaded and fell in the hallway. Denies any loss of consciousness or having hit his head; does recall the event. Decided to come to the ED for further evaluation given symptoms. Admits to loose stool and hematochezia in the days leading up to admission. Denies any weight loss, nausea , vomiting, fever, chills, abdominal pain. A CT C/A/P performed with IV contrast is showing what appears to be a recto-sigmoid lesion and adjacent abscess formation. No prior endoscopic evaluations. PMHx: See HPI PSHx: Denies FHx: Mother - Breast/brain malignancy; Father - DM Social: Denies any EtOH, tobacco or illicit drug use Review of Systems - Constitutional Constitutional: Fatigue, Lethargy. absent: Anorexia, Chills, Weight Loss - EENT Eyes: absent: Change in Vision Nose/Mouth/Throat: absent: Sore Throat - Cardiovascular Cardiovascular: absent: Chest Pain, Dyspnea, Edema - Respiratory Respiratory: absent: Cough, Dyspnea, Excessive Mucous Production - Gastrointestinal Gastrointestinal: Diarrhea, Hematochezia, Loose Stools. absent: Abdominal Pain , Bloating, Constipation, Cramping, Dyspepsia, Heartburn, Melena, Nausea, Vomiting - Genitourinary Genitourinary: absent: Dysuria, Urinary Frequency, Urinary Urgency - Musculoskeletal Musculoskeletal: absent: Back Pain, Neck Pain - Integumentary Integumentary: absent: New Lesions, Rash - Neurological Neurological: absent: Dizziness, Numbness, Focal Weakness - Psychiatric Psychiatric: absent: Anxiety, Depression - Endocrine Endocrine: absent: Polydipsia, Polyphagia, Polyuria - Hematologic/Lymphatic Hematologic: absent: Easy Bleeding, Easy Bruising, Lymphadenopathy Past Patient History - Past Medical History & Family History Past Medical History?: No - Past Social History Smoking Status: Never Smoked - CARDIAC Hx Hypertension: Yes - PULMONARY Hx Respiratory Disorders: No - NEUROLOGICAL Hx Neurological Disorder: No - HEENT Hx HEENT Problems: No - RENAL Hx Chronic Kidney Disease: No - ENDOCRINE/METABOLIC Hx Diabetes Mellitus Type 2: Yes - HEMATOLOGICAL/ONCOLOGICAL Hx Blood Disorders: No Hx Blood Transfusions: No - INTEGUMENTARY Hx Dermatological Problems: No - MUSCULOSKELETAL/RHEUMATOLOGICAL Hx Falls: Yes - GASTROINTESTINAL Hx Gastrointestinal Disorders: No - GENITOURINARY/GYNECOLOGICAL Hx Genitourinary Disorders: No - PSYCHIATRIC Hx Substance Use: No - SURGICAL HISTORY Hx Surgeries: Yes - ANESTHESIA Hx Anesthesia: Yes Hx Anesthesia Reactions: No Hx Malignant Hyperthermia: No Meds Allergies/Adverse Reactions: Allergies Allergy/AdvReac Type Severity Reaction Status Date / Time No Known Allergies Allergy Verified 11/15/16 21:27 - Medications Medications: Current Medications Famotidine (Pepcid) 20 mg IVP Q12 [facility] Last Admin: 11/16/16 10:02 Dose: 20 mg Potassium Chloride 20 meq/ (Sodium Chloride) 1,010 mls @ 100 mls/hr IV .Q10H6M [facility] Last Admin: 11/16/16 06:27 Dose: 100 mls/hr Fluconazole 100 mg/ (Miscellaneous) 50 mls @ 100 mls/hr IVPB DAILY [facility] Last Admin: 11/16/16 10:02 Dose: 100 mls/hr Piperacillin Sod/Tazobactam Sod (Zosyn 3.375 Gm Iv Premix) 3.375 gm in 50 mls @ 100 mls/hr IVPB Q6H [facility] Last Admin: 11/16/16 09:17 Dose: 100 mls/hr Insulin Aspart (Novolog) 0 unit SC ACHS [facility] PRN Reason: Protocol Last Admin: 11/16/16 08:12 Dose: Not Given Insulin Detemir (Levemir) 15 unit SC DAILY [facility] Ondansetron HCl (Zofran Inj) 4 mg IVP Q6H PRN PRN Reason: Nausea/Vomiting Physical Exam - Constitutional Appears: Non-toxic, No Acute Distress - Eye Exam Eye Exam: EOMI, PERRL - ENT Exam ENT Exam: Mucous Membranes Moist - Respiratory Exam Respiratory Exam: Clear to Auscultation Bilateral. absent: Rales, Rhonchi, Wheezes - Cardiovascular Exam Cardiovascular Exam: RRR, +S1, +S2 - GI/Abdominal Exam GI & Abdominal Exam: Normal Bowel Sounds, Soft. absent: Distended, Firm, Guarding, Rigid, Tenderness - Extremities Exam Extremities exam: Positive for: pedal edema Additional comments: 1+ LE edema - Neurological Exam Neurological exam: Alert, Oriented x3 - Psychiatric Exam Psychiatric exam: Normal Affect, Normal Mood - Skin Skin Exam: Dry, Warm Results - Vital Signs Recent Vital Signs: Last Vital Signs Temp 97.9 F 11/16/16 08:48 Pulse 100 H 11/16/16 08:48 Resp 18 11/16/16 08:48 BP 110/76 11/16/16 08:48 Pulse Ox 96 11/16/16 06:35 - Labs Result Diagrams: 11/16/16 05:42 11/16/16 04:40 Labs: Laboratory Results - last 24 hr 11/16/16 11/16/16 11/16/16 04:40 04:40 04:40 WBC RBC Hgb Hct MCV MCH MCHC RDW Plt Count MPV Neut % (Auto) Lymph % (Auto) [place] % (Auto) Eos % (Auto) Baso % (Auto) Neut # Lymph # [place] # Eos # Baso # Neutrophils % (Manual) Band Neutrophils % Lymphocytes % (Manual) Monocytes % (Manual) Toxic Granulation Platelet Estimate Large Platelets Polychromasia Hypochromasia (manual) Poikilocytosis (manual Anisocytosis (manual) Ovalocytes Mears Cells Schistocytes Sodium 134 Potassium 3.5 L Chloride 96 L Carbon Dioxide 22 Anion Gap 20 BUN 18 Creatinine 0.4 L Est GFR ( Amer) > 60 Est GFR (Non-Af Amer) > 60 POC Glucose (mg/dL) Random Glucose 187 H Serum Osmolality 302 H Lactic Acid Calcium 7.1 L Phosphorus 2.6 Magnesium 1.4 L Iron 17 L TIBC 182 L % Saturation 10 L Ferritin 165.0 Total Bilirubin 0.9 AST 16 L D ALT 26 Alkaline Phosphatase 106 C-React Prot High Sens > 15.00 H Total Protein 5.7 L Albumin 2.5 L Globulin 3.2 Albumin/Globulin Ratio 0.8 L CA 19-9 Antigen < 1.4 Urine Color Urine Clarity Urine pH Ur Specific [place] Urine Protein Urine Glucose (UA) Urine Ketones Urine Blood Urine Nitrate Urine Bilirubin Urine Urobilinogen Ur Leukocyte Esterase Urine WBC (Auto) Urine RBC (Auto) Urine WBC Clumps (Auto) Ur Squamous Epith Cells Urine Bacteria Urine Yeast (Budding) Stool Leukocytes, Qual C. difficile Ag & Toxin 11/16/16 11/16/16 11/16/16 04:41 05:42 06:19 WBC 12.6 H RBC 4.67 Hgb 9.9 L D Hct 31.8 L MCV 68.0 L MCH 21.3 L MCHC 31.3 L RDW 20.5 H Plt Count 178 D MPV 8.9 Neut % (Auto) 80.6 H Lymph % (Auto) 9.3 L [place] % (Auto) 10.0 Eos % (Auto) 0.0 Baso % (Auto) 0.1 Neut # 10.1 H Lymph # 1.2 [place] # 1.3 H Eos # 0.0 Baso # 0.0 Neutrophils % (Manual) 63 Band Neutrophils % 14 H* Lymphocytes % (Manual) 15 L Monocytes % (Manual) 8 Toxic Granulation Present Platelet Estimate Normal Large Platelets Present Polychromasia Slight Hypochromasia (manual) Slight Poikilocytosis (manual Slight Anisocytosis (manual) Moderate Ovalocytes Moderate Mears Cells Slight Schistocytes Slight Sodium Potassium Chloride Carbon Dioxide Anion Gap BUN Creatinine Est GFR ( Amer) Est GFR (Non-Af Amer) POC Glucose (mg/dL) Random Glucose Serum Osmolality Lactic Acid 2.1 Calcium Phosphorus Magnesium Iron TIBC % Saturation Ferritin Total Bilirubin AST ALT Alkaline Phosphatase C-React Prot High Sens Total Protein Albumin Globulin Albumin/Globulin Ratio CA 19-9 Antigen Urine Color Isabel Urine Clarity Hazy Urine pH 5.0 Ur Specific [place] 1.027 Urine Protein 2+ H Urine Glucose (UA) 1+ H Urine Ketones 2+ H Urine Blood Negative Urine Nitrate Negative Urine Bilirubin 1+ H Urine Urobilinogen 4.0 Ur Leukocyte Esterase 2+ H Urine WBC (Auto) 187 H Urine RBC (Auto) 34 H Urine WBC Clumps (Auto) Few H Ur Squamous Epith Cells < 1 Urine Bacteria Mod H Urine Yeast (Budding) Few H Stool Leukocytes, Qual C. difficile Ag & Toxin 11/16/16 11/16/16 11/16/16 06:44 Unknown Unknown WBC RBC Hgb Hct MCV MCH MCHC RDW Plt Count MPV Neut % (Auto) Lymph % (Auto) [place] % (Auto) Eos % (Auto) Baso % (Auto) Neut # Lymph # [place] # Eos # Baso # Neutrophils % (Manual) Band Neutrophils % Lymphocytes % (Manual) Monocytes % (Manual) Toxic Granulation Platelet Estimate Large Platelets Polychromasia Hypochromasia (manual) Poikilocytosis (manual Anisocytosis (manual) Ovalocytes Mears Cells Schistocytes Sodium Potassium Chloride Carbon Dioxide Anion Gap BUN Creatinine Est GFR ( Amer) Est GFR (Non-Af Amer) POC Glucose (mg/dL) 122 H Random Glucose Serum Osmolality Lactic Acid Calcium Phosphorus Magnesium Iron TIBC % Saturation Ferritin Total Bilirubin AST ALT Alkaline Phosphatase C-React Prot High Sens Total Protein Albumin Globulin Albumin/Globulin Ratio CA 19-9 Antigen Urine Color Urine Clarity Urine pH Ur Specific [place] Urine Protein Urine Glucose (UA) Urine Ketones Urine Blood Urine Nitrate Urine Bilirubin Urine Urobilinogen Ur Leukocyte Esterase Urine WBC (Auto) Urine RBC (Auto) Urine WBC Clumps (Auto) Ur Squamous Epith Cells Urine Bacteria Urine Yeast (Budding) Stool Leukocytes, Qual Negative C. difficile Ag & Toxin Negative Assessment & Plan - Assessment and Plan (Free Text) Assessment: Patient is a 66yo male with PMHx significant for DM and HTN who presented to the ED following a fall at home. States he was walking form bathroom when he became fatigued, lightheaded and fell in the hallway. GI consulted for abnormal abdominal imaging. -Abnormal lesion in the rectosigmoid colon on CT imaging -Abdominal abscess formation -Syncope and collapse -Hematochezia -Cholelithiasis Plan: -CT scan reviewed; report noted -Liquid diet as tolerated; would not advance diet -Antibiotic coverage as ordered -Pyle-cultures pending -Plan for EGD/Colonoscopy on Friday - Date & Time Date: 11/16/16 Time: 11:15 <Caden Michael MD - Last Filed: 11/16/16 16:08> Meds - Medications Medications: Current Medications Famotidine (Pepcid) 20 mg IVP Q12 [facility] Last Admin: 11/16/16 10:02 Dose: 20 mg Potassium Chloride 20 meq/ (Sodium Chloride) 1,010 mls @ 100 mls/hr IV .Q10H6M [facility] Last Admin: 11/16/16 06:27 Dose: 100 mls/hr Fluconazole 100 mg/ (Miscellaneous) 50 mls @ 100 mls/hr IVPB DAILY [facility] Last Admin: 11/16/16 10:02 Dose: 100 mls/hr Piperacillin Sod/Tazobactam Sod (Zosyn 3.375 Gm Iv Premix) 3.375 gm in 50 mls @ 100 mls/hr IVPB Q6H [facility] Last Admin: 11/16/16 13:06 Dose: 100 mls/hr Insulin Aspart (Novolog) 0 unit SC ACHS [facility] PRN Reason: Protocol Last Admin: 11/16/16 13:02 Dose: 2 unit Insulin Detemir (Levemir) 15 unit SC DAILY [facility] Last Admin: 11/16/16 13:03 Dose: 15 unit Ondansetron HCl (Zofran Inj) 4 mg IVP Q6H PRN PRN Reason: Nausea/Vomiting Results - Vital Signs Recent Vital Signs: Last Vital Signs Temp 97.9 F 11/16/16 08:48 Pulse 100 H 11/16/16 08:48 Resp 18 11/16/16 08:48 BP 110/76 11/16/16 08:48 Pulse Ox 96 11/16/16 06:35 - Labs Result Diagrams: 11/16/16 05:42 11/16/16 04:40 Labs: Laboratory Results - last 24 hr 11/16/16 11/16/16 11/16/16 04:40 04:40 04:40 WBC RBC Hgb Hct MCV MCH MCHC RDW Plt Count MPV Neut % (Auto) Lymph % (Auto) [place] % (Auto) Eos % (Auto) Baso % (Auto) Neut # Lymph # [place] # Eos # Baso # Neutrophils % (Manual) Band Neutrophils % Lymphocytes % (Manual) Monocytes % (Manual) Toxic Granulation Platelet Estimate Large Platelets Polychromasia Hypochromasia (manual) Poikilocytosis (manual Anisocytosis (manual) Ovalocytes [place] Cells Schistocytes Sodium 134 Potassium 3.5 L Chloride 96 L Carbon Dioxide 22 Anion Gap 20 BUN 18 Creatinine 0.4 L Est GFR ( Amer) > 60 Est GFR (Non-Af Amer) > 60 POC Glucose (mg/dL) Random Glucose 187 H Serum Osmolality 302 H Lactic Acid Calcium 7.1 L Phosphorus 2.6 Magnesium 1.4 L Iron 17 L TIBC 182 L % Saturation 10 L Ferritin 165.0 Total Bilirubin 0.9 AST 16 L D ALT 26 Alkaline Phosphatase 106 C-React Prot High Sens > 15.00 H Total Protein 5.7 L Albumin 2.5 L Globulin 3.2 Albumin/Globulin Ratio 0.8 L CA 19-9 Antigen < 1.4 Urine Color Urine Clarity Urine pH Ur Specific [place] Urine Protein Urine Glucose (UA) Urine Ketones Urine Blood Urine Nitrate Urine Bilirubin Urine Urobilinogen Ur Leukocyte Esterase Urine WBC (Auto) Urine RBC (Auto) Urine WBC Clumps (Auto) Ur Squamous Epith Cells Urine Bacteria Urine Yeast (Budding) Stool Leukocytes, Qual C. difficile Ag & Toxin 11/16/16 11/16/16 11/16/16 04:41 05:42 06:19 WBC 12.6 H RBC 4.67 Hgb 9.9 L D Hct 31.8 L MCV 68.0 L MCH 21.3 L MCHC 31.3 L RDW 20.5 H Plt Count 178 D MPV 8.9 Neut % (Auto) 80.6 H Lymph % (Auto) 9.3 L [place] % (Auto) 10.0 Eos % (Auto) 0.0 Baso % (Auto) 0.1 Neut # 10.1 H Lymph # 1.2 [place] # 1.3 H Eos # 0.0 Baso # 0.0 Neutrophils % (Manual) 63 Band Neutrophils % 14 H* Lymphocytes % (Manual) 15 L Monocytes % (Manual) 8 Toxic Granulation Present Platelet Estimate Normal Large Platelets Present Polychromasia Slight Hypochromasia (manual) Slight Poikilocytosis (manual Slight Anisocytosis (manual) Moderate Ovalocytes Moderate Mears Cells Slight Schistocytes Slight Sodium Potassium Chloride Carbon Dioxide Anion Gap BUN Creatinine Est GFR ( Amer) Est GFR (Non-Af Amer) POC Glucose (mg/dL) Random Glucose Serum Osmolality Lactic Acid 2.1 Calcium Phosphorus Magnesium Iron TIBC % Saturation Ferritin Total Bilirubin AST ALT Alkaline Phosphatase C-React Prot High Sens Total Protein Albumin Globulin Albumin/Globulin Ratio CA 19-9 Antigen Urine Color Isabel Urine Clarity Hazy Urine pH 5.0 Ur Specific [place] 1.027 Urine Protein 2+ H Urine Glucose (UA) 1+ H Urine Ketones 2+ H Urine Blood Negative Urine Nitrate Negative Urine Bilirubin 1+ H Urine Urobilinogen 4.0 Ur Leukocyte Esterase 2+ H Urine WBC (Auto) 187 H Urine RBC (Auto) 34 H Urine WBC Clumps (Auto) Few H Ur Squamous Epith Cells < 1 Urine Bacteria Mod H Urine Yeast (Budding) Few H Stool Leukocytes, Qual C. difficile Ag & Toxin 11/16/16 11/16/16 11/16/16 06:44 12:36 16:00 WBC RBC Hgb Hct MCV MCH MCHC RDW Plt Count MPV Neut % (Auto) Lymph % (Auto) [place] % (Auto) Eos % (Auto) Baso % (Auto) Neut # Lymph # [place] # Eos # Baso # Neutrophils % (Manual) Band Neutrophils % Lymphocytes % (Manual) Monocytes % (Manual) Toxic Granulation Platelet Estimate Large Platelets Polychromasia Hypochromasia (manual) Poikilocytosis (manual Anisocytosis (manual) Ovalocytes Mears Cells Schistocytes Sodium Potassium Chloride Carbon Dioxide Anion Gap BUN Creatinine Est GFR ( Amer) Est GFR (Non-Af Amer) POC Glucose (mg/dL) 122 H 193 H 200 H Random Glucose Serum Osmolality Lactic Acid Calcium Phosphorus Magnesium Iron TIBC % Saturation Ferritin Total Bilirubin AST ALT Alkaline Phosphatase C-React Prot High Sens Total Protein Albumin Globulin Albumin/Globulin Ratio CA 19-9 Antigen Urine Color Urine Clarity Urine pH Ur Specific [place] Urine Protein Urine Glucose (UA) Urine Ketones Urine Blood Urine Nitrate Urine Bilirubin Urine Urobilinogen Ur Leukocyte Esterase Urine WBC (Auto) Urine RBC (Auto) Urine WBC Clumps (Auto) Ur Squamous Epith Cells Urine Bacteria Urine Yeast (Budding) Stool Leukocytes, Qual C. difficile Ag & Toxin 11/16/16 11/16/16 Unknown Unknown WBC RBC Hgb Hct MCV MCH MCHC RDW Plt Count MPV Neut % (Auto) Lymph % (Auto) [place] % (Auto) Eos % (Auto) Baso % (Auto) Neut # Lymph # [place] # Eos # Baso # Neutrophils % (Manual) Band Neutrophils % Lymphocytes % (Manual) Monocytes % (Manual) Toxic Granulation Platelet Estimate Large Platelets Polychromasia Hypochromasia (manual) Poikilocytosis (manual Anisocytosis (manual) Ovalocytes Mears Cells Schistocytes Sodium Potassium Chloride Carbon Dioxide Anion Gap BUN Creatinine Est GFR ( Amer) Est GFR (Non-Af Amer) POC Glucose (mg/dL) Random Glucose Serum Osmolality Lactic Acid Calcium Phosphorus Magnesium Iron TIBC % Saturation Ferritin Total Bilirubin AST ALT Alkaline Phosphatase C-React Prot High Sens Total Protein Albumin Globulin Albumin/Globulin Ratio CA 19-9 Antigen Urine Color Urine Clarity Urine pH Ur Specific [place] Urine Protein Urine Glucose (UA) Urine Ketones Urine Blood Urine Nitrate Urine Bilirubin Urine Urobilinogen Ur Leukocyte Esterase Urine WBC (Auto) Urine RBC (Auto) Urine WBC Clumps (Auto) Ur Squamous Epith Cells Urine Bacteria Urine Yeast (Budding) Stool Leukocytes, Qual Negative C. difficile Ag & Toxin Negative Attending/Attestation - Attestation I have personally seen and examined this patient.: Yes I have fully participated in the care of the patient.: Yes I have reviewed all pertinent clinical information: Yes Notes (Text): 11/16/16 16:05 Patient seen and examined with GI fellow on rounds. This is a 66 yo male with PMHx significant for DM and HTN who presented to the ED after a fall. CT scan shows rectosigmoid lesion. Plan for EGD/ colonoscopy on Friday. Pancultures pending. Diet as tolerated. Antibiotics as per primary team
[2016-11-16] MEDS: Insulin Detemir 100 units/ml Vial (Levemir) SC SCH (13:03)
[2016-11-17] MEDS: Piperacill/Tazo 3.375gm in Dex 3.375 GM/50 ML BAG IVPB SCH ×2 (01:16→06:02)
[2016-11-17] MEDS: (Novolog) Insulin Aspart, Recombinant 100 u/ml 10 ml vial SC SCH ×4 (07:40→21:48)
[2016-11-17 08:05] LABS: BASO % 0.1 % (0.0-2.0); EOS % 0.2 % (0.0-4.0); HEMATOCRIT 29.6 % (35.0-51.0); LYMPH # 1.1 K/uL (1.0-4.3); LYMPH % 11.8 % (20.0-40.0); MEAN CELL VOLUME 67.7 fL (80.0-94.0); MEAN CORPUSCULAR HEMOGLOBIN 21.8 pg (27.0-31.0); MEAN CORPUSCULAR HGB CONC 32.1 g/dL (33.0-37.0); MEAN PLATELET VOLUME 9.3 fL (7.2-11.7); MONO # 0.9 K/uL (0.0-0.8); MONO % 9.5 % (0.0-10.0); RED CELL DISTRIBUTION WIDTH 20.8 % (11.5-14.5); WHITE BLOOD COUNT 9.3 K/uL (4.8-10.8)
[2016-11-17 08:14] LABS: CHLORIDE 98 mmol/L (98-107); POTASSIUM 3.3 mmol/L (3.6-5.2); SODIUM 136 mmol/L (132-148)
[2016-11-17 08:16] LABS: ALB/GLOB RATIO 0.7 (1.0-2.1); ALKALINE PHOSPHATASE 91 U/L (38-126); AST/SGOT 15 U/L (17-59); BILIRUBIN,TOTAL 0.7 mg/dL (0.2-1.3); CARBON DIOXIDE 26 mmol/L (22-30); GFR AFRICAN-AMERICAN > 60; TOTAL PROTEIN 4.7 g/dL (6.3-8.3)
[2016-11-17 08:17] LABS: ALT/SGPT 26 U/L (21-72); BLOOD UREA NITROGEN 19 mg/dL (9-20); CALCIUM 7.4 mg/dl (8.6-10.4); GLUCOSE,RANDOM 63 mg/dL (75-110); MAGNESIUM 1.9 mg/dL (1.6-2.3); PHOSPHOROUS 2.4 mg/dL (2.5-4.5)
--- NOTE | 2016-11-17 08:17 | CP.PCM.PN ---
Subjective - Date & Time of Evaluation Date of Evaluation: 11/17/16 Time of Evaluation: 08:16 - Subjective Subjective: Surgery: Dr. Amin Patient states he feels better. He report bowel movement yesterday. Nonbloody. He denies n/v/f/c abdominal pain. Objective - Vital Signs/Intake and Output Vital Signs (last 24 hours): Temp Pulse Resp BP Pulse Ox 97.5 F L 99 H 20 104/70 95 11/17/16 00:00 11/17/16 04:00 11/17/16 00:00 11/17/16 00:00 11/17/16 00:00 Intake and Output: 11/17/16 11/17/16 06:59 18:59 Intake Total 1140 Output Total 1300 Balance -160 - Medications Medications: Current Medications Famotidine (Pepcid) 20 mg IVP Q12 [facility] Last Admin: 11/16/16 21:58 Dose: 20 mg Potassium Chloride 20 meq/ (Sodium Chloride) 1,010 mls @ 100 mls/hr IV .Q10H6M [facility] Last Admin: 11/17/16 05:55 Dose: Not Given Fluconazole 100 mg/ (Miscellaneous) 50 mls @ 100 mls/hr IVPB DAILY [facility] Last Admin: 11/16/16 10:02 Dose: 100 mls/hr Piperacillin Sod/Tazobactam Sod (Zosyn 3.375 Gm Iv Premix) 3.375 gm in 50 mls @ 100 mls/hr IVPB Q6H [facility] Last Admin: 11/17/16 06:02 Dose: 100 mls/hr Insulin Aspart (Novolog) 0 unit SC ACHS [facility] PRN Reason: Protocol Last Admin: 11/17/16 07:40 Dose: Not Given Insulin Detemir (Levemir) 15 unit SC DAILY [facility] Last Admin: 11/16/16 13:03 Dose: 15 unit Ondansetron HCl (Zofran Inj) 4 mg IVP Q6H PRN PRN Reason: Nausea/Vomiting - Labs Labs: 11/16/16 05:42 11/17/16 07:59 PT 13.7 SECONDS (9.7-12.2) H 11/15/16 22:04 INR 1.2 11/15/16 22:04 APTT 19 SECONDS (21-34) L 11/15/16 22:04 - Constitutional Appears: Non-toxic, No Acute Distress - Head Exam Head Exam: ATRAUMATIC, NORMOCEPHALIC - Eye Exam Eye Exam: EOMI, Normal appearance - ENT Exam ENT Exam: Mucous Membranes Moist - Respiratory Exam Respiratory Exam: NORMAL BREATHING PATTERN. absent: Respiratory Distress - Cardiovascular Exam Cardiovascular Exam: REGULAR RHYTHM. absent: Tachycardia - GI/Abdominal Exam GI & Abdominal Exam: Distended, Soft. absent: Guarding, Tenderness, Rebound - Neurological Exam Neurological Exam: Alert, Awake - Psychiatric Exam Psychiatric exam: Normal Affect, Normal Mood - Skin Skin Exam: Dry, Normal Color, Warm Assessment and Plan - Assessment and Plan (Free Text) Assessment: 66 y/o male w/ diarrhea and Ct findings suggestive of sigmoid mass Plan: -IV abx -IVFs -pain/nausea medication -ok for diet from surgical standpoint at this time -patient for EGD/colonoscopy on Friday per GI team, will f/ results -f/u stool studies -daily labs -monitor for bleeding episodes -GI prophylaxis -pending studies determine surgical intervention -d/w Dr. Amin [facility], [place] PGY3
[2016-11-17] MEDS ORDERED: Potassium Chloride 20 mEq/15 ml LIQ UD PO ONE (08:45)
--- NOTE | 2016-11-17 09:18 | CP.PCM.PN ---
Subjective - Date & Time of Evaluation Date of Evaluation: 11/17/16 Time of Evaluation: 08:30 - Subjective Subjective: Patient was seen and examined by me He reported he did ok overnight. He still has the diarrhea but does not feel as dry and dehydrated now that he is on the IVF. He is tolerating the liquid diet he is on right now. He denied nausea, denied vommitting, denied abdominal pain, denied chest pain, denied headache, denied shortness of breath, denied palpitations. We again talked about the pancreatic mass as well as the sigmoid/rectal mass. Tomorrow will undergo EGD/Colonscopy. Pending the C Diff studies at this time. He is been placed on IV Flagyl Also this morning there is a preliminary gram negative - we changed the Zosyn over to Primaxin 500mg IV Q6hrs Objective - Vital Signs/Intake and Output Vital Signs (last 24 hours): Temp Pulse Resp BP Pulse Ox 97.5 F L 99 H 20 104/70 95 11/17/16 00:00 11/17/16 04:00 11/17/16 00:00 11/17/16 00:00 11/17/16 00:00 Intake and Output: 11/17/16 11/17/16 06:59 18:59 Intake Total 1140 Output Total 1300 Balance -160 - Medications Medications: Current Medications Bisacodyl (Dulcolax) 20 mg PO ONCE ONE Stop: 11/17/16 12:01 Famotidine (Pepcid) 20 mg IVP Q12 [facility] Last Admin: 11/16/16 21:58 Dose: 20 mg Potassium Chloride 20 meq/ (Sodium Chloride) 1,010 mls @ 100 mls/hr IV .Q10H6M [facility] Last Admin: 11/17/16 05:55 Dose: Not Given Fluconazole 100 mg/ (Miscellaneous) 50 mls @ 100 mls/hr IVPB DAILY [facility] Last Admin: 11/16/16 10:02 Dose: 100 mls/hr Imipenem/Cilastatin Sodium 500 (mg/ Sodium Chloride) 100 mls @ 100 mls/hr IVPB Q6H [facility] Metronidazole (Flagyl) 500 mg in 100 mls @ 100 mls/hr IVPB Q8H [facility] Insulin Aspart (Novolog) 0 unit SC ACHS [facility] PRN Reason: Protocol Last Admin: 11/17/16 07:40 Dose: Not Given Insulin Detemir (Levemir) 15 unit SC DAILY [facility] Last Admin: 11/16/16 13:03 Dose: 15 unit Ondansetron HCl (Zofran Inj) 4 mg IVP Q6H PRN PRN Reason: Nausea/Vomiting Polyethylene Glycol/Electrolytes (Golytely) 4,000 ml PO ONCE ONE Stop: 11/17/16 16:01 - Labs Labs: 11/17/16 07:59 11/17/16 07:59 PT 13.7 SECONDS (9.7-12.2) H 11/15/16 22:04 INR 1.2 11/15/16 22:04 APTT 19 SECONDS (21-34) L 11/15/16 22:04 - Constitutional Appears: No Acute Distress, Unkempt, Older Than Stated Age, Chronically Ill - Head Exam Head Exam: NORMAL INSPECTION, NORMOCEPHALIC - Eye Exam Eye Exam: EOMI - Respiratory Exam Respiratory Exam: Clear to Ausculation Bilateral, NORMAL BREATHING PATTERN - Cardiovascular Exam Cardiovascular Exam: REGULAR RHYTHM - GI/Abdominal Exam GI & Abdominal Exam: Soft, Normal Bowel Sounds. absent: Guarding, Rigid, Tenderness - Neurological Exam Neuro motor strength exam: Left Upper Extremity: 5, Right Upper Extremity: 5 - Psychiatric Exam Psychiatric exam: Normal Affect, Normal Mood - Skin Skin Exam: Normal Color, Warm Assessment and Plan - Assessment and Plan (Free Text) Assessment: Assessment & Plan (1) Syncope - possibly secondary to ongoing diarrhea 11/17: Feeling better today, continue with the IVF. He is tolerating the the liquid diet 11/16: Continue with the IVF, he reports diarrhea, also the patient reports poor PO intake. He looks dry on exam. He recently had an echo done on 10/17 as well. His head CT was negative Also stop the blood pressure medication (2) Chronic diarrhea 11/17: Still having the diarrhea. The C diff studies are pending. He will need to be on IV Flagyl. 11/16: Pending CT of abd / pelvis results. The appears to be a possible pancreatic area mass as well as colonic mass. The night team has already ordered tumor markers as well as stool studies. Abx were also ordered and the WBC decreased. CT chest abdomen and pelvis findings as noted: suspected sigmoid and proximal rectum mass lesion without evidence of high grade bowel obstruction; suspected abscess formation; cystic mass lesion noted at pancreas with surrounding fat stranding of the pancreatic tail; large gallstones without evidence of acute cholecystitis GI consult (Dr. Srivastava)---> Help appreciated General Surgery Consult (Dr. Amin)----> Help appreciated Urology Consult ( Dr. Jon)----> Help appreciated * All consulted due to unofficial read of CT Scan of chest/abdomen/pelvis: Intra -abdominal abscess/malignancy and bladder wall thickening * Still pending official radiologist report NS 0.9%@ 100MLS/HR f/U Stool culture, stool Leukocytes f/U Ova and parasites f/u C. diffi toxin AB (3) Gram - negative positive blood cultures 11/17: Change to IV Primaxin 500mg IV Q6 Follow cultures. Currently blood pressure and HR stable. Nonfebrile. Continue with the IVF, monitor lowe outputs (4) Urinary tract infection UA: Leukocytes esterase : 2+ WBC: 187 Yeast Budding: (positive) * Fluconazole 100mg IVPB daily (5) Metabolic acidosis, increased anion gap Improving with IVF Secondary to ketosis On admission: 33 After NS 0.9% @ 100mls/hr: 20 (6) Hypertension 11/16: Will hold lisnopril at this time (7) Uncontrolled diabetes mellitus Recent HgbA1C: 9.0 (09/28/16) Accuchecks ISS Levemir 15 units Hold glipizide (8) Prophylactic measure SCD ( Contraindicated due to LE edema) Pepcid IV 20mg Q12H
[2016-11-17] MEDS: Fluconazole IV 200mg/100 ml NS 100 MG in Premixed IV 1 EA IVPB SCH (09:23)
[2016-11-17] MEDS: Insulin Detemir 100 units/ml Vial (Levemir) SC SCH (09:23)
[2016-11-17] MEDS: metroNIDAZOLE IV 500 mg/100 ml 500 MG/100 ML BAG IVPB SCH ×2 (10:02→17:00)
--- NOTE | 2016-11-17 10:14 | CP.PCM.PN ---
<Sage Rosenberg - Last Filed: 11/17/16 13:14> Subjective - Date & Time of Evaluation Date of Evaluation: 11/17/16 Time of Evaluation: 08:30 - Subjective Subjective: PGY5 GI Fellow Progress Note Patient seen and examined bedside this morning. He denies any significant complaints at this time. No abdominal pain, nausea, vomiting, diarrhea. No events overnight. 12 system ROS performed and negative except where stated. Objective - Vital Signs/Intake and Output Vital Signs (last 24 hours): Temp Pulse Resp BP Pulse Ox 97.5 F L 99 H 20 104/70 95 11/17/16 00:00 11/17/16 04:00 11/17/16 00:00 11/17/16 00:00 11/17/16 00:00 Intake and Output: 11/17/16 11/17/16 06:59 18:59 Intake Total 1140 Output Total 1300 Balance -160 - Medications Medications: Current Medications Bisacodyl (Dulcolax) 20 mg PO ONCE ONE Stop: 11/17/16 12:01 Famotidine (Pepcid) 20 mg IVP Q12 [facility] Last Admin: 11/17/16 09:24 Dose: 20 mg Potassium Chloride 20 meq/ (Sodium Chloride) 1,010 mls @ 100 mls/hr IV .Q10H6M [facility] Last Admin: 11/17/16 09:21 Dose: 100 mls/hr Fluconazole 100 mg/ (Miscellaneous) 50 mls @ 100 mls/hr IVPB DAILY [facility] Last Admin: 11/17/16 09:23 Dose: 100 mls/hr Imipenem/Cilastatin Sodium 500 (mg/ Sodium Chloride) 100 mls @ 100 mls/hr IVPB Q6H [facility] Last Admin: 11/17/16 10:08 Dose: 100 mls/hr Metronidazole (Flagyl) 500 mg in 100 mls @ 100 mls/hr IVPB Q8H [facility] Last Admin: 11/17/16 10:02 Dose: 100 mls/hr Insulin Aspart (Novolog) 0 unit SC ACHS [facility] PRN Reason: Protocol Last Admin: 11/17/16 07:40 Dose: Not Given Insulin Detemir (Levemir) 15 unit SC DAILY [facility] Last Admin: 11/17/16 09:23 Dose: 15 unit Ondansetron HCl (Zofran Inj) 4 mg IVP Q6H PRN PRN Reason: Nausea/Vomiting Polyethylene Glycol/Electrolytes (Golytely) 4,000 ml PO ONCE ONE Stop: 11/17/16 16:01 - Labs Labs: 11/17/16 07:59 11/17/16 07:59 PT 13.7 SECONDS (9.7-12.2) H 11/15/16 22:04 INR 1.2 11/15/16 22:04 APTT 19 SECONDS (21-34) L 11/15/16 22:04 - Constitutional Appears: Non-toxic, No Acute Distress - Eye Exam Eye Exam: EOMI, PERRL - ENT Exam ENT Exam: Mucous Membranes Moist - Respiratory Exam Respiratory Exam: Clear to Ausculation Bilateral. absent: Rales, Rhonchi, Wheezes - Cardiovascular Exam Cardiovascular Exam: RRR, +S1, +S2 - GI/Abdominal Exam GI & Abdominal Exam: Soft, Normal Bowel Sounds. absent: Distended, Firm, Guarding, Rigid, Tenderness, Organomegaly - Extremities Exam Extremities Exam: Normal Inspection. absent: Pedal Edema - Neurological Exam Neurological Exam: Alert, Awake, Oriented x3 - Psychiatric Exam Psychiatric exam: Normal Affect, Normal Mood - Skin Skin Exam: Dry, Warm Assessment and Plan - Assessment and Plan (Free Text) Assessment: Patient is a 66yo male with PMHx significant for DM and HTN who presented to the ED following a fall at home. States he was walking form bathroom when he became fatigued, lightheaded and fell in the hallway. GI consulted for abnormal abdominal imaging. -Abnormal lesion in the rectosigmoid colon on CT imaging -Abdominal abscess formation -GNR bacteremia -Syncope and collapse -Hematochezia -Cholelithiasis Plan: -Plan for EGD/colonoscopy tomorrow -Liquid diet today -NPO past MN -GNR noted in blood; continue abx coverage as ordered -Dulcolax at 2PM; GoLytely at 4PM <Caden Michael MD - Last Filed: 11/17/16 21:54> Objective - Vital Signs/Intake and Output Vital Signs (last 24 hours): Temp Pulse Resp BP Pulse Ox 98.4 F 91 H 20 107/69 94 L 11/17/16 15:17 11/17/16 15:17 11/17/16 15:17 11/17/16 15:17 11/17/16 15:17 Intake and Output: 11/17/16 11/18/16 18:59 06:59 Intake Total 800 Output Total 480 Balance 320 - Medications Medications: Current Medications Famotidine (Pepcid) 20 mg IVP Q12 [facility] Last Admin: 11/17/16 09:24 Dose: 20 mg Potassium Chloride 20 meq/ (Sodium Chloride) 1,010 mls @ 100 mls/hr IV .Q10H6M [facility] Last Admin: 11/17/16 12:56 Dose: Not Given Fluconazole 100 mg/ (Miscellaneous) 50 mls @ 100 mls/hr IVPB DAILY [facility] Last Admin: 11/17/16 09:23 Dose: 100 mls/hr Imipenem/Cilastatin Sodium 500 (mg/ Sodium Chloride) 100 mls @ 100 mls/hr IVPB Q6H [facility] Last Admin: 11/17/16 20:20 Dose: 100 mls/hr Metronidazole (Flagyl) 500 mg in 100 mls @ 100 mls/hr IVPB Q8H [facility] Last Admin: 11/17/16 17:00 Dose: 100 mls/hr Insulin Aspart (Novolog) 0 unit SC ACHS [facility] PRN Reason: Protocol Last Admin: 11/17/16 21:48 Dose: Not Given Insulin Detemir (Levemir) 15 unit SC DAILY [facility] Last Admin: 11/17/16 09:23 Dose: 15 unit Ondansetron HCl (Zofran Inj) 4 mg IVP Q6H PRN PRN Reason: Nausea/Vomiting - Labs Labs: 11/17/16 07:59 11/17/16 07:59 PT 13.7 SECONDS (9.7-12.2) H 11/15/16 22:04 INR 1.2 11/15/16 22:04 APTT 19 SECONDS (21-34) L 11/15/16 22:04 Attending/Attestation - Attestation I have personally seen and examined this patient.: Yes I have fully participated in the care of the patient.: Yes I have reviewed all pertinent clinical information, including history, physical exam and plan: Yes Notes (Text): 11/17/16 21:54 Patient seen and examined with GI fellow on rounds. This is a 66 yo male with PMHx significant for DM and HTN who presented to the ED after a fall. CT scan shows rectosigmoid lesion. Plan for EGD/ colonoscopy on Friday. Pancultures shows GNR. Diet as tolerated. Antibiotics as per primary team
[2016-11-17] MEDS ORDERED: Bisacodyl 5mg EC Tab PO ONE ×2 (12:00→13:07)
[2016-11-17] MEDS ORDERED: Peg-Electrolyte Oral Soln 4L (Golytely) PO ONE (16:00)
[2016-11-18] MEDS ORDERED: Glucagon Recombinant 1 mg Inj IM PRN (02:13)
[2016-11-18] MEDS ORDERED: Dextrose 50% SYRINGE Inj (50 ml) ONE (02:14)
[2016-11-18] MEDS: metroNIDAZOLE IV 500 mg/100 ml 500 MG/100 ML BAG IVPB SCH ×3 (02:28→17:39)
[2016-11-18] MEDS ORDERED: Dextrose 50% SYRINGE Inj (50 ml) IV PRN (02:31)
[2016-11-18] MEDS ORDERED: Dextrose 5%/0.9% NS 1,000 ML IV SCH ×2 (04:30→06:51)
[2016-11-18] MEDS ORDERED: Dextrose 5%/0.45% NS 1,000 ML IV SCH (04:30)
[2016-11-18] MEDS: Dextrose 50% SYRINGE Inj (50 ml) IV PRN (06:21)
[2016-11-18 07:39] LABS: BASO % 0.2 % (0.0-2.0); EOS % 0.1 % (0.0-4.0); HEMATOCRIT 31.9 % (35.0-51.0); LYMPH # 0.9 K/uL (1.0-4.3); LYMPH % 9.4 % (20.0-40.0); MEAN CELL VOLUME 68.1 fL (80.0-94.0); MEAN CORPUSCULAR HEMOGLOBIN 21.4 pg (27.0-31.0); MEAN CORPUSCULAR HGB CONC 31.5 g/dL (33.0-37.0); MEAN PLATELET VOLUME 9.1 fL (7.2-11.7); MONO % 10.4 % (0.0-10.0); PLATELET COUNT 136 K/uL (130-400); RED CELL DISTRIBUTION WIDTH 20.7 % (11.5-14.5); WHITE BLOOD COUNT 10.1 K/uL (4.8-10.8)
--- NOTE | 2016-11-18 07:40 | CP.PCM.PN ---
Subjective - Date & Time of Evaluation Date of Evaluation: 11/18/16 Time of Evaluation: 07:00 - Subjective Subjective: Pt s/e at bedside this AM. Patient denies any complaints or concerns. Had many bowel movements with the bowel prep for the colonoscopy but denies any blood in the stool. Objective - Vital Signs/Intake and Output Vital Signs (last 24 hours): Temp Pulse Resp BP Pulse Ox 98 F 106 H 20 101/71 96 11/17/16 23:40 11/18/16 01:45 11/17/16 23:40 11/17/16 23:40 11/17/16 23:40 Intake and Output: 11/18/16 11/18/16 06:59 18:59 Intake Total 2120 Output Total 450 Balance 1670 - Medications Medications: Current Medications Dextrose (Dextrose 50% Inj) 0 ml IV STAT PRN; Protocol PRN Reason: Hyglycemia Protocol Last Admin: 11/18/16 06:21 Dose: 50 ml Famotidine (Pepcid) 20 mg IVP Q12 [facility] Last Admin: 11/17/16 22:23 Dose: 20 mg Potassium Chloride 20 meq/ (Sodium Chloride) 1,010 mls @ 100 mls/hr IV .Q10H6M [facility] Last Admin: 11/17/16 22:31 Dose: Not Given Fluconazole 100 mg/ (Miscellaneous) 50 mls @ 100 mls/hr IVPB DAILY [facility] Last Admin: 11/17/16 09:23 Dose: 100 mls/hr Imipenem/Cilastatin Sodium 500 (mg/ Sodium Chloride) 100 mls @ 100 mls/hr IVPB Q6H [facility] Last Admin: 11/18/16 03:39 Dose: 100 mls/hr Metronidazole (Flagyl) 500 mg in 100 mls @ 100 mls/hr IVPB Q8H [facility] Last Admin: 11/18/16 02:28 Dose: 100 mls/hr Dextrose/Sodium Chloride (Dextrose 5%/0.9% Ns 1000 Ml) 1,000 mls @ 125 mls/hr IV .Q8H [facility] Last Admin: 11/18/16 07:03 Dose: 125 mls/hr Insulin Aspart (Novolog) 0 unit SC ACHS [facility] PRN Reason: Protocol Last Admin: 11/17/16 21:48 Dose: Not Given Insulin Detemir (Levemir) 15 unit SC DAILY [facility] Last Admin: 11/17/16 09:23 Dose: 15 unit Ondansetron HCl (Zofran Inj) 4 mg IVP Q6H PRN PRN Reason: Nausea/Vomiting - Labs Labs: 11/17/16 07:59 11/17/16 07:59 PT 13.7 SECONDS (9.7-12.2) H 11/15/16 22:04 INR 1.2 11/15/16 22:04 APTT 19 SECONDS (21-34) L 11/15/16 22:04 - Constitutional Appears: Well, Non-toxic, No Acute Distress - Head Exam Head Exam: ATRAUMATIC, NORMOCEPHALIC - Eye Exam Eye Exam: Normal appearance. absent: Conjunctival injection, Scleral icterus - ENT Exam ENT Exam: Mucous Membranes Moist, Normal Oropharynx - Respiratory Exam Respiratory Exam: NORMAL BREATHING PATTERN. absent: Accessory Muscle Use, Respiratory Distress - Cardiovascular Exam Cardiovascular Exam: RRR - GI/Abdominal Exam GI & Abdominal Exam: Soft. absent: Distended, Tenderness - Extremities Exam Extremities Exam: absent: Calf Tenderness, Pedal Edema, Tenderness - Neurological Exam Neurological Exam: Alert, Awake, Oriented x3 - Psychiatric Exam Psychiatric exam: Normal Affect, Normal Mood - Skin Skin Exam: Dry, Intact, Normal Color, Warm Assessment and Plan - Assessment and Plan (Free Text) Assessment: 66 y/o male w/ diarrhea and Ct findings suggestive of sigmoid mass concerning for cancer, with possible urinary bladder involvement, possible pelvic abscesses , pancreatic cyst Plan: -f/u colonoscopy/endoscopy results -trend daily labs -f/u stool studies -IV abx -IVFs -pain/nausea medication, GI prophylaxis -ok for diet -Further surgical planning dependent on results of testing D/w Dr. Brennan Lin, PGY2
[2016-11-18 07:50] LABS: CHLORIDE 99 mmol/L (98-107); SODIUM 136 mmol/L (132-148)
[2016-11-18 07:51] LABS: POTASSIUM 2.8 mmol/L (3.6-5.2)
[2016-11-18 07:53] LABS: ALB/GLOB RATIO 0.6 (1.0-2.1); ALKALINE PHOSPHATASE 97 U/L (38-126); AST/SGOT 18 U/L (17-59); BILIRUBIN,TOTAL 0.8 mg/dL (0.2-1.3); BLOOD UREA NITROGEN 15 mg/dL (9-20); CARBON DIOXIDE 25 mmol/L (22-30); GFR AFRICAN-AMERICAN > 60; GLUCOSE,RANDOM 128 mg/dL (75-110); PHOSPHOROUS 3.2 mg/dL (2.5-4.5); TOTAL PROTEIN 4.8 g/dL (6.3-8.3)
[2016-11-18 07:54] LABS: ALT/SGPT 31 U/L (21-72); CALCIUM 7.1 mg/dl (8.6-10.4); MAGNESIUM 1.7 mg/dL (1.6-2.3)
[2016-11-18] MEDS: (Novolog) Insulin Aspart, Recombinant 100 u/ml 10 ml vial SC SCH ×4 (08:16→22:01)
[2016-11-18] MEDS ORDERED: Potassium Chloride 20 mEq/15 ml LIQ UD PO ONE (08:30)
[2016-11-18 08:48] LABS: NEUTROPHIL 71 % (50-75); TOTAL CELLS COUNTED 100
[2016-11-18 08:49] LABS: LARGE PLATELETS PRESENT
--- NOTE | 2016-11-18 09:30 | CP.PCM.PN ---
<Jose Coffman - Last Filed: 11/18/16 17:53> Subjective - Date & Time of Evaluation Date of Evaluation: 11/18/16 Time of Evaluation: 08:00 - Subjective Subjective: Patient was seen and examined at bedside. Patient was npo. He had received an enema treatment earlier. Patient was aware that he was going to the OR for a EGD /Colonoscopy later that day. He said he felt weak but had no other specific complaint. He denied seeing blood during his bowel prep. He denied chest pain, shortness of breath, nausea, vomiting, headache, fever, chills. Objective - Vital Signs/Intake and Output Vital Signs (last 24 hours): Temp Pulse Resp BP Pulse Ox 98.4 F 92 H 20 105/70 96 11/18/16 09:15 11/18/16 09:15 11/18/16 09:15 11/18/16 09:15 11/18/16 09:15 Intake and Output: 11/18/16 11/18/16 06:59 18:59 Intake Total 2120 Output Total 450 Balance 1670 - Medications Medications: Current Medications Dextrose (Dextrose 50% Inj) 0 ml IV STAT PRN; Protocol PRN Reason: Hyglycemia Protocol Last Admin: 11/18/16 06:21 Dose: 50 ml Famotidine (Pepcid) 20 mg IVP Q12 [facility] Last Admin: 11/17/16 22:23 Dose: 20 mg Potassium Chloride 20 meq/ (Sodium Chloride) 1,010 mls @ 100 mls/hr IV .Q10H6M [facility] Last Admin: 11/17/16 22:31 Dose: Not Given Fluconazole 100 mg/ (Miscellaneous) 50 mls @ 100 mls/hr IVPB DAILY [facility] Last Admin: 11/17/16 09:23 Dose: 100 mls/hr Imipenem/Cilastatin Sodium 500 (mg/ Sodium Chloride) 100 mls @ 100 mls/hr IVPB Q6H [facility] Last Admin: 11/18/16 03:39 Dose: 100 mls/hr Metronidazole (Flagyl) 500 mg in 100 mls @ 100 mls/hr IVPB Q8H [facility] Last Admin: 11/18/16 02:28 Dose: 100 mls/hr Dextrose/Sodium Chloride (Dextrose 5%/0.9% Ns 1000 Ml) 1,000 mls @ 125 mls/hr IV .Q8H [facility] Last Admin: 11/18/16 07:03 Dose: 125 mls/hr Potassium Chloride (Potassium Chloride 20 Meq/100 Ml) 20 meq in 100 mls @ 50 mls/hr IVPB ONCE ONE Stop: 11/18/16 12:29 Insulin Aspart (Novolog) 0 unit SC ACHS [facility] PRN Reason: Protocol Last Admin: 11/18/16 08:16 Dose: Not Given Insulin Detemir (Levemir) 15 unit SC DAILY [facility] Last Admin: 11/17/16 09:23 Dose: 15 unit Ondansetron HCl (Zofran Inj) 4 mg IVP Q6H PRN PRN Reason: Nausea/Vomiting - Labs Labs: 11/18/16 07:19 11/18/16 07:19 PT 13.7 SECONDS (9.7-12.2) H 11/15/16 22:04 INR 1.2 11/15/16 22:04 APTT 19 SECONDS (21-34) L 11/15/16 22:04 - Constitutional Appears: Well, Non-toxic, No Acute Distress, Unkempt, Older Than Stated Age - Head Exam Head Exam: ATRAUMATIC, NORMAL INSPECTION, NORMOCEPHALIC - Eye Exam Eye Exam: EOMI, Normal appearance, PERRL - ENT Exam ENT Exam: Mucous Membranes Moist - Neck Exam Neck Exam: Normal Inspection - Respiratory Exam Respiratory Exam: Clear to Ausculation Bilateral, NORMAL BREATHING PATTERN - Cardiovascular Exam Cardiovascular Exam: REGULAR RHYTHM, +S1, +S2. absent: Murmur - GI/Abdominal Exam GI & Abdominal Exam: Soft, Normal Bowel Sounds. absent: Tenderness - Rectal Exam Rectal Exam: Deferred - Extremities Exam Extremities Exam: Pedal Edema - Neurological Exam Neurological Exam: Alert, Awake, Oriented x3 - Psychiatric Exam Psychiatric exam: Normal Affect, Normal Mood - Skin Skin Exam: Dry, Pallor, Warm Assessment and Plan - Assessment and Plan (Free Text) Assessment: Assessment & Plan (1) Chronic diarrhea 11/18: Patient is s/p EGD/Colonoscopy. A 10cm partially obstructing sigmoid mass was seen and biopsied. Multiple polyps were seen and resected. Heme/Onc, Dr Garcia has been consulted, we will follow up with his recommendations. 11/17: Still having the diarrhea. The C diff studies are pending. He will need to be on IV Flagyl. 11/16: Pending CT of abd / pelvis results. The appears to be a possible pancreatic area mass as well as colonic mass. The night team has already ordered tumor markers as well as stool studies. Abx were also ordered and the WBC decreased. CT chest abdomen and pelvis findings as noted: suspected sigmoid and proximal rectum mass lesion without evidence of high grade bowel obstruction; suspected abscess formation; cystic mass lesion noted at pancreas with surrounding fat stranding of the pancreatic tail; large gallstones without evidence of acute cholecystitis GI consult (Dr. Srivastava)---> Help appreciated General Surgery Consult (Dr. Amin)----> Help appreciated Urology Consult ( Dr. Jon)----> Help appreciated * All consulted due to unofficial read of CT Scan of chest/abdomen/pelvis: Intra -abdominal abscess/malignancy and bladder wall thickening * Still pending official radiologist report Potassium chloride/dextrose/sodium cl @ 100ml/hr iv q10 Stool culture negative for salmonella, shigella, campylobacter Stool leukocytes negative Ova and parasites not seen C. diffi toxin AB negative (2) Syncope - possibly secondary to ongoing diarrhea 11/17: Feeling better today, continue with the IVF. He is tolerating the the liquid diet 11/16: Continue with the IVF, he reports diarrhea, also the patient reports poor PO intake. He looks dry on exam. He recently had an echo done on 10/17 [address]. His head CT was negative Also stop the blood pressure medication (3) Gram - negative positive blood cultures 11/18: HIV 1&2 antibodies, Hep panel were ordered today. ID has been consulted, Dr Burns, we will follow his recommendations. 11/17: Changed to IV Primaxin 500mg IV Q6 Follow cultures. Currently blood pressure and HR stable. Nonfebrile. Continue with the IVF, monitor lowe outputs (4) Urinary tract infection 11/18: repeat urine culture ordered today as previous urine culture came back contaminated UA: Leukocytes esterase : 2+ WBC: 187 Yeast Budding: (positive) * Fluconazole 100mg IVPB daily (5) Metabolic acidosis, increased anion gap Improving with IVF Secondary to ketosis On admission: 33 After NS 0.9% @ 100mls/hr: 20 (6) Hypertension 11/16: Will hold lisnopril at this time (7) Uncontrolled diabetes mellitus Recent HgbA1C: 9.0 (09/28/16) Accuchecks ISS Levemir 15 units Hold glipizide (8) Ulcerated mucosa of esophagus 11/18: Per endoscopy report -> Ulcerated mucosa in the lower third of the esophagus was seen and biopsied. Patient is on pepcid iv 20mg q12. 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 Lipase level and lipid panel was ordered today. 11/17: CA 19-9 wnl (10) Cholelithiasis 11/18: CT abd/pelvis shows large gallstones without evidence of acute cholecystitis. (11) Prophylactic measure SCD (Contraindicated due to LE edema) Pepcid IV 20mg Q12H <Blanco Rivera - Last Filed: 11/19/16 18:06> Objective - Vital Signs/Intake and Output Vital Signs (last 24 hours): Temp Pulse Resp BP Pulse Ox 97.9 F 116 H 20 118/79 97 11/19/16 15:16 11/19/16 15:16 11/19/16 15:16 11/19/16 15:16 11/19/16 15:16 Intake and Output: 11/19/16 11/19/16 06:59 18:59 Intake Total 1800 1220 Output Total 1200 180 Balance 600 1040 - Medications Medications: Current Medications Dextrose (Dextrose 50% Inj) 0 ml IV STAT PRN; Protocol PRN Reason: Hyglycemia Protocol Last Admin: 11/18/16 06:21 Dose: 50 ml Famotidine (Pepcid) 20 mg IVP Q12 [facility] Last Admin: 11/19/16 09:35 Dose: 20 mg Potassium Chloride 20 meq/ (Sodium Chloride) 1,010 mls @ 100 mls/hr IV .Q10H6M [facility] Last Admin: 11/17/16 22:31 Dose: Not Given Imipenem/Cilastatin Sodium 500 (mg/ Sodium Chloride) 100 mls @ 100 mls/hr IVPB Q6H [facility] Last Admin: 11/19/16 13:52 Dose: 100 mls/hr Metronidazole (Flagyl) 500 mg in 100 mls @ 100 mls/hr IVPB Q8H [facility] Last Admin: 11/19/16 17:48 Dose: 100 mls/hr Potassium Chloride/Dextrose/Sod Cl (Potassium Chl 20 Meq In D5-1/2ns) 1,000 mls @ 100 mls/hr IV .Q10H [facility] Last Admin: 11/19/16 13:54 Dose: Not Given Fluconazole (Diflucan Iv 100 Mg/50 Ml Ns) 50 mls @ 100 mls/hr IVPB DAILY [facility] Last Admin: 11/19/16 09:35 Dose: 100 mls/hr Insulin Aspart (Novolog) 0 unit SC ACHS [facility] PRN Reason: Protocol Last Admin: 11/19/16 17:48 Dose: 6 unit Insulin Detemir (Levemir) 15 unit SC DAILY [facility] Last Admin: 11/19/16 09:36 Dose: Not Given Ondansetron HCl (Zofran Inj) 4 mg IVP Q6H PRN PRN Reason: Nausea/Vomiting - Labs Labs: 11/19/16 11:56 11/19/16 11:56 PT 17.5 SECONDS (9.7-12.2) H 11/18/16 16:56 INR 1.5 11/18/16 16:56 APTT 19 SECONDS (21-34) L 11/15/16 22:04 Attending/Attestation - Attestation I have personally seen and examined this patient.: Yes I have fully participated in the care of the patient.: Yes I have reviewed all pertinent clinical information, including history, physical exam and plan: Yes Notes (Text): 11/19/16 18:05 Patient was seen and examined at bedside with the resident Status post EGD and colonoscopy. Follow-up the biopsy result Follow-up recommendations of GI, surgery and hematology/oncology I discussed the plan of care with the resident and agree with the steroids and assessment/plan by the resident.
[2016-11-18] MEDS: Insulin Detemir 100 units/ml Vial (Levemir) SC SCH (09:39)
[2016-11-18] MEDS: Fluconazole IV 200mg/100 ml NS 100 MG in Premixed IV 1 EA IVPB SCH (10:06)
--- NOTE | 2016-11-18 12:27 | CP.PCM.CON ---
History of Present Illness - History of Present Illness History of Present Illness: going for EGD IV rx in progress chart reviewed Review of Systems - Constitutional Constitutional: As Per HPI - EENT Eyes: absent: As Per HPI, Blind Spots, Blurred Vision, Change in Vision, Decreased Night Vision, Diplopia, Discharge, Dry Eye, Exophthalmos, Floaters, Irritation, Itchy Eyes, Loss of Peripheral Vision, Pain, Photophobia, Requires Corrective Lenses, Sees Flashes, Spots in Vision, Tunnel Vision, Other Visual Disturbances, Loss of Vision, Other Ears: absent: As Per HPI, Decreased Hearing, Ear Discharge, Ear Pain, Tinnitus, Abnormal Hearing, Disequilibrium, Dizziness, Other Nose/Mouth/Throat: absent: As Per HPI, Epistaxis, Nasal Congestion, Nasal Discharge, Nasal Obstruction, Nasal Trauma, Nose Pain, Post Nasal Drip, Sinus Pain, Sinus Pressure, Bleeding Gums, Change in Voice, Dental Pain, Dry Mouth, Dysphagia, Halitosis, Hoarsness, Lip Swelling, Mouth Lesions, Mouth Pain, Odynophagia, Sore Throat, Throat Swelling, Tongue Swelling, Facial Pain, Neck Pain, Neck Mass, Other - Cardiovascular Cardiovascular: absent: As Per HPI, Acrocyanosis, Chest Pain, Chest Pain at Rest , Chest Pain with Activity, Claudication, Diaphoresis, Dyspnea, Dyspnea on Exertion, Edema, Irregular Heart Rhythm, Pain Radiating to Arm/Neck/Jaw, Leg Edema, Leg Ulcers, Lightheadedness, Orthopnea, Palpitations, Paroxysmal Nocturnal Dyspnea, Pedal Edema, Radiating Pain, Rapid Heart Rate, Slow Heart Rate, Syncope, Other - Respiratory Respiratory: Wheezing. absent: As Per HPI, Cough, Dyspnea, Hemoptysis, Dyspnea on Exertion, Snoring, Stridor, Pain on Inspiration, Chest Congestion, Excessive Mucous Production, Change in Mucous Color, Pain with Coughing, Other - Gastrointestinal Gastrointestinal: As Per HPI, Abdominal Pain - Genitourinary Genitourinary: absent: As Per HPI, Change in Urinary Stream, Difficulty Urinating, Dysuria, Flank Pain, Hematuria, Pyuria, Nocturia, Urinary Incontinence, Urinary Frequency, Urinary Hesitance, Urinary Urgency, Voiding Freq/Small Amts, Freq UTI, Hx Renal/Bladder Calculi, Hx /Renal Surgery, Bladder Distension, Other - Musculoskeletal Musculoskeletal: absent: As Per HPI, Abnormal Gait, Arthralgias, Atrophy, Back Pain, Deformity, Joint Swelling, Limited Range of Motion, Loss of Height, Muscle Cramps, Muscle Weakness, Myalgias, Neck Pain, Numbness, Radiating Pain into Limb, Stiffness, Tingling, Other - Integumentary Integumentary: absent: As Per HPI, Acne, Alopecia, Bleeding Lesions, Change in Hair, Change in Nails, Change in Pigmentation, Changing Lesions, Dry Skin, Erythema, Furuncle, Hirsutism, Lesions, New Lesions, Non-Healing Lesions, Photosensitivity, Pruritus, Rash, Skin Pain, Skin Ulcer, Sores, Striae, Swelling , Unusual Bruising, Wounds, Jaundice, Other - Neurological Neurological: absent: As Per HPI, Abnormal Gait, Abnormal Hearing, Abnormal Movements, Abnormal Speech, Behavioral Changes, Burning Sensations, Confusion, Convulsions, Disequilibrium, Dizziness, Numbness, Focal Weakness, Frequent Falls , Headaches, Lack of Coordination, Loss of Vision, Memory Loss, Paresthesias, Radicular Pain, Restless Legs, Sensory Deficit, Syncope, Tingling, Tremor, Vertigo, Weakness, Other Visual Disturbances, Other - Psychiatric Psychiatric: absent: As Per HPI, Abnormal Sleep Pattern, Anhedonia, Anxiety, Auditory Hallucinations, Behavioral Changes, Change in Appetite, Change in Libido, Confusion, Depression, Difficulty Concentrating, Hallucinations, Homicidal Ideation, Hopelessness, Irritability, Memory Loss, Mood Swings, Panic Attacks, Paranoia, Suicidal Ideation, Visual Hallucinations, Tactile Hallucinations, Other - Endocrine Endocrine: absent: As Per HPI, Change in Body Appearance, Change in Libido, Cold Intolorance, Deepening of Voice, Excessive Sweating, Fatigue, Flushing, Heat Intolorance, Increase in Ring/Shoe/Hat Size, Palpitations, Polydipsia, Polyphagia, Polyuria, Other - Hematologic/Lymphatic Hematologic: absent: As Per HPI, Easy Bleeding, Easy Bruising, Lymphadenopathy, Other Past Patient History - Past Medical History & Family History Past Medical History?: No - Past Social History Smoking Status: Never Smoked - CARDIAC Hx Hypertension: Yes - PULMONARY Hx Respiratory Disorders: No - NEUROLOGICAL Hx Neurological Disorder: No - HEENT Hx HEENT Problems: No - RENAL Hx Chronic Kidney Disease: No - ENDOCRINE/METABOLIC Hx Diabetes Mellitus Type 2: Yes - HEMATOLOGICAL/ONCOLOGICAL Hx Blood Disorders: No Hx Blood Transfusions: No - INTEGUMENTARY Hx Dermatological Problems: No - MUSCULOSKELETAL/RHEUMATOLOGICAL Hx Falls: Yes - GASTROINTESTINAL Hx Gastrointestinal Disorders: No - GENITOURINARY/GYNECOLOGICAL Hx Genitourinary Disorders: No - PSYCHIATRIC Hx Substance Use: No - SURGICAL HISTORY Hx Surgeries: Yes - ANESTHESIA Hx Anesthesia: Yes Hx Anesthesia Reactions: No Hx Malignant Hyperthermia: No Meds Allergies/Adverse Reactions: Allergies Allergy/AdvReac Type Severity Reaction Status Date / Time No Known Allergies Allergy Verified 11/15/16 21:27 - Medications Medications: Current Medications Dextrose (Dextrose 50% Inj) 0 ml IV STAT PRN; Protocol PRN Reason: Hyglycemia Protocol Last Admin: 11/18/16 06:21 Dose: 50 ml Famotidine (Pepcid) 20 mg IVP Q12 [facility] Last Admin: 11/18/16 09:34 Dose: 20 mg Potassium Chloride 20 meq/ (Sodium Chloride) 1,010 mls @ 100 mls/hr IV .Q10H6M [facility] Last Admin: 11/17/16 22:31 Dose: Not Given Fluconazole 100 mg/ (Miscellaneous) 50 mls @ 100 mls/hr IVPB DAILY [facility] Last Admin: 11/18/16 10:06 Dose: 100 mls/hr Imipenem/Cilastatin Sodium 500 (mg/ Sodium Chloride) 100 mls @ 100 mls/hr IVPB Q6H [facility] Last Admin: 11/18/16 09:41 Dose: 100 mls/hr Metronidazole (Flagyl) 500 mg in 100 mls @ 100 mls/hr IVPB Q8H [facility] Last Admin: 11/18/16 10:07 Dose: 100 mls/hr Dextrose/Sodium Chloride (Dextrose 5%/0.9% Ns 1000 Ml) 1,000 mls @ 125 mls/hr IV .Q8H [facility] Last Admin: 11/18/16 07:03 Dose: 125 mls/hr Potassium Chloride (Potassium Chloride 20 Meq/100 Ml) 20 meq in 100 mls @ 50 mls/hr IVPB ONCE ONE Stop: 11/18/16 12:29 Last Admin: 11/18/16 10:35 Dose: 50 mls/hr Insulin Aspart (Novolog) 0 unit SC ACHS DOREEN PRN Reason: Protocol Last Admin: 11/18/16 12:23 Dose: Not Given Insulin Detemir (Levemir) 15 unit SC DAILY [facility] Last Admin: 11/18/16 09:39 Dose: Not Given Ondansetron HCl (Zofran Inj) 4 mg IVP Q6H PRN PRN Reason: Nausea/Vomiting Physical Exam - Constitutional Appears: Non-toxic, Cachectic, Chronically Ill - Head Exam Head Exam: NORMOCEPHALIC - Eye Exam Eye Exam: PERRL. absent: Scleral icterus - ENT Exam ENT Exam: Mucous Membranes Dry, Normal External Ear Exam - Neck Exam Neck exam: Negative for: Lymphadenopathy - Respiratory Exam Respiratory Exam: Decreased Breath Sounds, Clear to Auscultation Bilateral - Cardiovascular Exam Cardiovascular Exam: REGULAR RHYTHM, +S1, +S2 - GI/Abdominal Exam GI & Abdominal Exam: Diminished Bowel Sounds, Soft, Tenderness - Rectal Exam Rectal Exam: Deferred - Exam Exam: NORMAL INSPECTION - Extremities Exam Extremities exam: Positive for: pedal pulses present. Negative for: calf tenderness, pedal edema, tenderness - Back Exam Back exam: absent: CVA tenderness (L), CVA tenderness (R) - Neurological Exam Neurological exam: Alert, CN II-XII Intact, Oriented x3, Reflexes Normal - Psychiatric Exam Psychiatric exam: Depressed - Skin Skin Exam: Dry, Intact Results - Vital Signs Recent Vital Signs: Last Vital Signs Temp 98.4 F 11/18/16 09:15 Pulse 92 H 11/18/16 09:15 Resp 20 11/18/16 09:15 BP 105/70 11/18/16 09:15 Pulse Ox 96 11/18/16 09:15 - Labs Result Diagrams: 11/20/16 06:43 11/20/16 06:43 Labs: Laboratory Results - last 24 hr 11/17/16 11/17/16 11/17/16 17:07 21:28 21:45 WBC RBC Hgb Hct MCV MCH MCHC RDW Plt Count MPV Neut % (Auto) Lymph % (Auto) [place] % (Auto) Eos % (Auto) Baso % (Auto) Neut # Lymph # [place] # Eos # Baso # Neutrophils % (Manual) Band Neutrophils % Lymphocytes % (Manual) Monocytes % (Manual) Platelet Estimate Large Platelets Hypochromasia (manual) Poikilocytosis (manual Anisocytosis (manual) Microcytosis (manual) Ovalocytes [place] Cells Sodium Potassium Chloride Carbon Dioxide Anion Gap BUN Creatinine Est GFR ( Amer) Est GFR (Non-Af Amer) POC Glucose (mg/dL) 71 48 L 73 Random Glucose Calcium Phosphorus Magnesium Total Bilirubin AST ALT Alkaline Phosphatase Total Protein Albumin Globulin Albumin/Globulin Ratio 11/18/16 11/18/16 11/18/16 02:08 02:48 03:59 WBC RBC Hgb Hct MCV MCH MCHC RDW Plt Count MPV Neut % (Auto) Lymph % (Auto) [place] % (Auto) Eos % (Auto) Baso % (Auto) Neut # Lymph # [place] # Eos # Baso # Neutrophils % (Manual) Band Neutrophils % Lymphocytes % (Manual) Monocytes % (Manual) Platelet Estimate Large Platelets Hypochromasia (manual) Poikilocytosis (manual Anisocytosis (manual) Microcytosis (manual) Ovalocytes [place] Cells Sodium Potassium Chloride Carbon Dioxide Anion Gap BUN Creatinine Est GFR ( Amer) Est GFR (Non-Af Amer) POC Glucose (mg/dL) 43 L 139 H 83 Random Glucose Calcium Phosphorus Magnesium Total Bilirubin AST ALT Alkaline Phosphatase Total Protein Albumin Globulin Albumin/Globulin Ratio 11/18/16 11/18/16 11/18/16 06:14 06:33 07:19 WBC 10.1 RBC 4.68 Hgb 10.0 L Hct 31.9 L MCV 68.1 L MCH 21.4 L MCHC 31.5 L RDW 20.7 H Plt Count 136 MPV 9.1 Neut % (Auto) 79.9 H Lymph % (Auto) 9.4 L [place] % (Auto) 10.4 H Eos % (Auto) 0.1 Baso % (Auto) 0.2 Neut # 8.1 H Lymph # 0.9 L [place] # 1.0 H Eos # 0.0 Baso # 0.0 Neutrophils % (Manual) 71 Band Neutrophils % 11 H* Lymphocytes % (Manual) 10 L Monocytes % (Manual) 8 Platelet Estimate Normal Large Platelets Present Hypochromasia (manual) Slight Poikilocytosis (manual Slight Anisocytosis (manual) Slight Microcytosis (manual) Slight Ovalocytes Slight [place] Cells Slight Sodium Potassium Chloride Carbon Dioxide Anion Gap BUN Creatinine Est GFR ( Amer) Est GFR (Non-Af Amer) POC Glucose (mg/dL) 45 L 181 H Random Glucose Calcium Phosphorus Magnesium Total Bilirubin AST ALT Alkaline Phosphatase Total Protein Albumin Globulin Albumin/Globulin Ratio 11/18/16 11/18/16 11/18/16 07:19 08:18 11:36 WBC RBC Hgb Hct MCV MCH MCHC RDW Plt Count MPV Neut % (Auto) Lymph % (Auto) [place] % (Auto) Eos % (Auto) Baso % (Auto) Neut # Lymph # [place] # Eos # Baso # Neutrophils % (Manual) Band Neutrophils % Lymphocytes % (Manual) Monocytes % (Manual) Platelet Estimate Large Platelets Hypochromasia (manual) Poikilocytosis (manual Anisocytosis (manual) Microcytosis (manual) Ovalocytes [place] Cells Sodium 136 Potassium 2.8 L Chloride 99 Carbon Dioxide 25 Anion Gap 15 BUN 15 Creatinine 0.4 L Est GFR ( Amer) > 60 Est GFR (Non-Af Amer) > 60 POC Glucose (mg/dL) 105 97 Random Glucose 128 H Calcium 7.1 L Phosphorus 3.2 Magnesium 1.7 Total Bilirubin 0.8 AST 18 ALT 31 Alkaline Phosphatase 97 Total Protein 4.8 L Albumin 1.8 L Globulin 2.9 Albumin/Globulin Ratio 0.6 L Assessment & Plan (1) Chronic diarrhea Status: Acute (2) Colonic mass Status: Acute (3) Diabetic ketosis Status: Acute (4) GI bleeding Status: Acute (5) E coli bacteremia Status: Acute (6) E coli bacteremia Status: Acute - Assessment and Plan (Free Text) Plan: bacteremia sepsis colon ca cont iv antibiotics await cultures and path report poor prognosis
[2016-11-18] MEDS ORDERED: Etomidate 20 mg/10ml Inj IV ONE (12:52)
[2016-11-18] MEDS ORDERED: Propofol 10 mg/ml Inj (20 ML) ONE ×2 (12:52→13:28)
[2016-11-18] MEDS ORDERED: Lidocaine Hydrochloride 5 ML INJ ONE (12:52)
--- NOTE | 2016-11-18 12:59 | CARD ---
APPROVED REPORT EKG Measurement Heart [id number] <Conclusion> Sinus tachycardia Nonspecific ST and T wave abnormality Abnormal ECG
[2016-11-18] MEDS ORDERED: Phenylephrine 10 mg/ml Inj ONE (13:08)
--- NOTE | 2016-11-18 14:50 | PCM.URO ---
Urology Progress Note - Objective Lab Results Last 24 Hours: Laboratory Results - last 24 hr 11/17/16 11/17/16 11/17/16 17:07 21:28 21:45 WBC RBC Hgb Hct MCV MCH MCHC RDW Plt Count MPV Neut % (Auto) Lymph % (Auto) [place] % (Auto) Eos % (Auto) Baso % (Auto) Neut # Lymph # [place] # Eos # Baso # Neutrophils % (Manual) Band Neutrophils % Lymphocytes % (Manual) Monocytes % (Manual) Platelet Estimate Large Platelets Hypochromasia (manual) Poikilocytosis (manual Anisocytosis (manual) Microcytosis (manual) Ovalocytes [place] Cells Sodium Potassium Chloride Carbon Dioxide Anion Gap BUN Creatinine Est GFR ( Amer) Est GFR (Non-Af Amer) POC Glucose (mg/dL) 71 48 L 73 Random Glucose Calcium Phosphorus Magnesium Total Bilirubin AST ALT Alkaline Phosphatase Total Protein Albumin Globulin Albumin/Globulin Ratio 11/18/16 11/18/16 11/18/16 02:08 02:48 03:59 WBC RBC Hgb Hct MCV MCH MCHC RDW Plt Count MPV Neut % (Auto) Lymph % (Auto) [place] % (Auto) Eos % (Auto) Baso % (Auto) Neut # Lymph # [place] # Eos # Baso # Neutrophils % (Manual) Band Neutrophils % Lymphocytes % (Manual) Monocytes % (Manual) Platelet Estimate Large Platelets Hypochromasia (manual) Poikilocytosis (manual Anisocytosis (manual) Microcytosis (manual) Ovalocytes [place] Cells Sodium Potassium Chloride Carbon Dioxide Anion Gap BUN Creatinine Est GFR ( Amer) Est GFR (Non-Af Amer) POC Glucose (mg/dL) 43 L 139 H 83 Random Glucose Calcium Phosphorus Magnesium Total Bilirubin AST ALT Alkaline Phosphatase Total Protein Albumin Globulin Albumin/Globulin Ratio 11/18/16 11/18/16 11/18/16 06:14 06:33 07:19 WBC 10.1 RBC 4.68 Hgb 10.0 L Hct 31.9 L MCV 68.1 L MCH 21.4 L MCHC 31.5 L RDW 20.7 H Plt Count 136 MPV 9.1 Neut % (Auto) 79.9 H Lymph % (Auto) 9.4 L [place] % (Auto) 10.4 H Eos % (Auto) 0.1 Baso % (Auto) 0.2 Neut # 8.1 H Lymph # 0.9 L [place] # 1.0 H Eos # 0.0 Baso # 0.0 Neutrophils % (Manual) 71 Band Neutrophils % 11 H* Lymphocytes % (Manual) 10 L Monocytes % (Manual) 8 Platelet Estimate Normal Large Platelets Present Hypochromasia (manual) Slight Poikilocytosis (manual Slight Anisocytosis (manual) Slight Microcytosis (manual) Slight Ovalocytes Slight [place] Cells Slight Sodium Potassium Chloride Carbon Dioxide Anion Gap BUN Creatinine Est GFR ( Amer) Est GFR (Non-Af Amer) POC Glucose (mg/dL) 45 L 181 H Random Glucose Calcium Phosphorus Magnesium Total Bilirubin AST ALT Alkaline Phosphatase Total Protein Albumin Globulin Albumin/Globulin Ratio 11/18/16 11/18/16 11/18/16 07:19 08:18 11:36 WBC RBC Hgb Hct MCV MCH MCHC RDW Plt Count MPV Neut % (Auto) Lymph % (Auto) [place] % (Auto) Eos % (Auto) Baso % (Auto) Neut # Lymph # [place] # Eos # Baso # Neutrophils % (Manual) Band Neutrophils % Lymphocytes % (Manual) Monocytes % (Manual) Platelet Estimate Large Platelets Hypochromasia (manual) Poikilocytosis (manual Anisocytosis (manual) Microcytosis (manual) Ovalocytes [place] Cells Sodium 136 Potassium 2.8 L Chloride 99 Carbon Dioxide 25 Anion Gap 15 BUN 15 Creatinine 0.4 L Est GFR ( Amer) > 60 Est GFR (Non-Af Amer) > 60 POC Glucose (mg/dL) 105 97 Random Glucose 128 H Calcium 7.1 L Phosphorus 3.2 Magnesium 1.7 Total Bilirubin 0.8 AST 18 ALT 31 Alkaline Phosphatase 97 Total Protein 4.8 L Albumin 1.8 L Globulin 2.9 Albumin/Globulin Ratio 0.6 L Intake & Output: Intake & Output 11/17/16 11/18/16 11/18/16 18:59 06:59 18:59 Intake Total 800 2120 1000 Output Total 480 450 Balance 320 1670 1000 Intake: IV 1000 Intake, IV Amount 800 1600 Left Antecubital 800 1600 Oral 320 Other 200 Output: Urine 480 450 Urethral ([place]) 480 450 Other: # Bowel Movements 2 5 Vital Signs: Vital Signs - 24 hr 11/17/16 11/17/16 11/18/16 15:17 23:40 01:45 Temperature 98.4 F 98 F Pulse Rate 91 H 112 H 106 H Respiratory 20 20 Rate Blood Pressure 107/69 101/71 O2 Sat by Pulse 94 L 96 Oximetry 11/18/16 11/18/16 11/18/16 09:15 12:55 14:03 Temperature 98.4 F 98.4 F 98.1 F Pulse Rate 92 H 94 H 91 H Respiratory 20 16 20 Rate Blood Pressure 105/70 108/61 100/63 O2 Sat by Pulse 96 100 100 Oximetry 11/18/16 11/18/16 14:18 14:33 Temperature Pulse Rate 91 H 90 Respiratory 20 22 Rate Blood Pressure 109/67 105/57 L O2 Sat by Pulse 100 100 Oximetry
[2016-11-18] MEDS: Potassium Ch 20mEq in D5-1/2NS 1,000 ML IV SCH (16:12)
[2016-11-18 17:16] LABS: POTASSIUM 3.8 mmol/L (3.6-5.2)
[2016-11-18 17:17] LABS: INR 1.5
[2016-11-18 17:19] LABS: CHOLESTEROL 65 mg/dL (0-199)
[2016-11-19] MEDS: Potassium Ch 20mEq in D5-1/2NS 1,000 ML IV SCH ×2 (02:00→13:54)
[2016-11-19] MEDS: metroNIDAZOLE IV 500 mg/100 ml 500 MG/100 ML BAG IVPB SCH ×3 (02:57→17:48)
[2016-11-19] MEDS: (Novolog) Insulin Aspart, Recombinant 100 u/ml 10 ml vial SC SCH ×5 (07:13→21:22)
--- NOTE | 2016-11-19 07:15 | CP.PCM.PN ---
<Dorys Best - Last Filed: 11/19/16 09:01> Subjective - Date & Time of Evaluation Date of Evaluation: 11/19/16 Time of Evaluation: 07:11 - Subjective Subjective: Gastroenterology Fellow/PGY5 Progress Note Patient denies abdominal pain. Notes he is hungry. Aware of sigmoid mass and concern for abscess collection. No bowel movement yesterday. A 12-point review of systems negative except for as above. Objective - Vital Signs/Intake and Output Vital Signs (last 24 hours): Temp Pulse Resp BP Pulse Ox 98.5 F 110 H 20 102/69 95 11/18/16 23:30 11/19/16 03:54 11/18/16 23:30 11/18/16 23:30 11/18/16 23:30 Intake and Output: 11/19/16 11/19/16 06:59 18:59 Intake Total 1800 Output Total 1200 Balance 600 - Medications Medications: Current Medications Dextrose (Dextrose 50% Inj) 0 ml IV STAT PRN; Protocol PRN Reason: Hyglycemia Protocol Last Admin: 11/18/16 06:21 Dose: 50 ml Famotidine (Pepcid) 20 mg IVP Q12 [facility] Last Admin: 11/18/16 22:00 Dose: 20 mg Potassium Chloride 20 meq/ (Sodium Chloride) 1,010 mls @ 100 mls/hr IV .Q10H6M [facility] Last Admin: 11/17/16 22:31 Dose: Not Given Fluconazole 100 mg/ (Miscellaneous) 50 mls @ 100 mls/hr IVPB DAILY [facility] Last Admin: 11/18/16 10:06 Dose: 100 mls/hr Imipenem/Cilastatin Sodium 500 (mg/ Sodium Chloride) 100 mls @ 100 mls/hr IVPB Q6H [facility] Last Admin: 11/19/16 04:01 Dose: 100 mls/hr Metronidazole (Flagyl) 500 mg in 100 mls @ 100 mls/hr IVPB Q8H [facility] Last Admin: 11/19/16 02:57 Dose: 100 mls/hr Potassium Chloride/Dextrose/Sod Cl (Potassium Chl 20 Meq In D5-1/2ns) 1,000 mls @ 100 mls/hr IV .Q10H [facility] Last Admin: 11/19/16 02:00 Dose: Not Given Insulin Aspart (Novolog) 0 unit SC ACHS [facility] PRN Reason: Protocol Last Admin: 11/18/16 22:01 Dose: Not Given Insulin Detemir (Levemir) 15 unit SC DAILY [facility] Last Admin: 11/18/16 09:39 Dose: Not Given Ondansetron HCl (Zofran Inj) 4 mg IVP Q6H PRN PRN Reason: Nausea/Vomiting - Labs Labs: 11/18/16 07:19 11/18/16 16:56 PT 17.5 SECONDS (9.7-12.2) H 11/18/16 16:56 INR 1.5 11/18/16 16:56 APTT 19 SECONDS (21-34) L 11/15/16 22:04 - Constitutional Appears: Non-toxic, No Acute Distress - Head Exam Head Exam: ATRAUMATIC, NORMOCEPHALIC - Eye Exam Eye Exam: EOMI, PERRL Pupil Exam: PERRL. absent: Miosis, Mydriatic - Neck Exam Neck Exam: Full ROM, Normal Inspection - Respiratory Exam Respiratory Exam: Clear to Ausculation Bilateral. absent: Rales, Rhonchi, Wheezes - Cardiovascular Exam Cardiovascular Exam: RRR, +S1, +S2. absent: Gallop, Rubs - GI/Abdominal Exam GI & Abdominal Exam: Soft, Normal Bowel Sounds. absent: Distended, Firm, Guarding, Rigid, Tenderness, Organomegaly, Rebound - Extremities Exam Extremities Exam: Normal Inspection, Pedal Edema - Neurological Exam Neurological Exam: Alert - Psychiatric Exam Psychiatric exam: Normal Affect, Normal Mood - Skin Skin Exam: Dry, Intact, Normal Color, Warm Assessment and Plan - Assessment and Plan (Free Text) Assessment: 66 year old male with history of Hypertension and Diabetes presenting with fall and weakness. Active treatment of GNR Bacteremia, yeast UTI, and GI consultation for abnormal CT C/A/P IV contrast showing sigmoid/proximal rectum mass with adjacent 9.7x7.5cm abscess and mesenteric lymphadenopathy, and 8x5.2cm right lower abdomen abscess. Additional findings of pancreatic body 11.8x6.2cm cyst, likely pseudocyst. No EGD or colonoscopy prior to admission. 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 Stevenson for possible scheduling on Friday >Hem/Onc managing- follow up recommendations >primary team and ID managing antibiotic coverage >will follow clinical course <Constantine Srivastava - Last Filed: 11/19/16 14:18> Objective - Vital Signs/Intake and Output Vital Signs (last 24 hours): Temp Pulse Resp BP Pulse Ox 98.3 F 102 H 20 101/69 99 11/19/16 07:40 11/19/16 07:40 11/19/16 07:40 11/19/16 07:40 11/19/16 07:40 Intake and Output: 11/19/16 11/19/16 06:59 18:59 Intake Total 1800 Output Total 1200 Balance 600 - Medications Medications: Current Medications Dextrose (Dextrose 50% Inj) 0 ml IV STAT PRN; Protocol PRN Reason: Hyglycemia Protocol Last Admin: 11/18/16 06:21 Dose: 50 ml Famotidine (Pepcid) 20 mg IVP Q12 [facility] Last Admin: 11/19/16 09:35 Dose: 20 mg Potassium Chloride 20 meq/ (Sodium Chloride) 1,010 mls @ 100 mls/hr IV .Q10H6M [facility] Last Admin: 11/17/16 22:31 Dose: Not Given Imipenem/Cilastatin Sodium 500 (mg/ Sodium Chloride) 100 mls @ 100 mls/hr IVPB Q6H [facility] Last Admin: 11/19/16 13:52 Dose: 100 mls/hr Metronidazole (Flagyl) 500 mg in 100 mls @ 100 mls/hr IVPB Q8H [facility] Last Admin: 11/19/16 11:25 Dose: 100 mls/hr Potassium Chloride/Dextrose/Sod Cl (Potassium Chl 20 Meq In D5-1/2ns) 1,000 mls @ 100 mls/hr IV .Q10H [facility] Last Admin: 11/19/16 13:54 Dose: Not Given Fluconazole (Diflucan Iv 100 Mg/50 Ml Ns) 50 mls @ 100 mls/hr IVPB DAILY [facility] Last Admin: 11/19/16 09:35 Dose: 100 mls/hr Insulin Aspart (Novolog) 0 unit SC ACHS DORE[facility] PRN Reason: Protocol Last Admin: 11/19/16 11:30 Dose: Not Given Insulin Detemir (Levemir) 15 unit SC DAILY [facility] Last Admin: 11/19/16 09:36 Dose: Not Given Ondansetron HCl (Zofran Inj) 4 mg IVP Q6H PRN PRN Reason: Nausea/Vomiting - Labs Labs: 11/19/16 11:56 11/19/16 11:56 PT 17.5 SECONDS (9.7-12.2) H 11/18/16 16:56 INR 1.5 11/18/16 16:56 APTT 19 SECONDS (21-34) L 11/15/16 22:04 Attending/Attestation - Attestation I have personally seen and examined this patient.: Yes I have fully participated in the care of the patient.: Yes I have reviewed all pertinent clinical information, including history, physical exam and plan: Yes Notes (Text): 11/19/16 14:14 I have seen and examined patient with GI fellow. No acute events overnight, he is seen resting in bed comfortably. He denies abdominal pain, nausea, vomiting , diarrhea, fever/chills. He remains NPO and is asking for diet to be advanced. DM / HTN Sepsis, UTI Pancreatic cystic lesion - remote history of pancreatitis [address] imaging s/p EGD/colonoscopy showing esophagitis, large sigmoid mass lesion Ramona-colonic abscess noted on CT imaging - Liquid diet as tolerated - Follow up surgical recommendations regarding intervention for associated abscess - Continue with antibiotic therapy - Awaiting biopsy results from colonoscopy yesterday - Follow up oncology recommendations - Suggest further evaluation of pancreatic cystic lesion with EUS as this may alter course of management if something other than pseudocyst is suspected. Plan for tomorrow with Dr. Stevenson, NPO after midnight.
--- NOTE | 2016-11-19 07:50 | CP.PCM.PN ---
Subjective - Date & Time of Evaluation Date of Evaluation: 11/19/16 Time of Evaluation: 06:50 - Subjective Subjective: Pt s/e at bedside this AM. NAEO. Patient underwent EGD and colonoscopy yesterday with biopsies of the colon mass taken. Patient denies any pain, nausea , vomiting, fevers, chills, or any other symptoms. Objective - Vital Signs/Intake and Output Vital Signs (last 24 hours): Temp Pulse Resp BP Pulse Ox 98.3 F 102 H 20 101/69 99 11/19/16 07:40 11/19/16 07:40 11/19/16 07:40 11/19/16 07:40 11/19/16 07:40 Intake and Output: 11/19/16 11/19/16 06:59 18:59 Intake Total 1800 Output Total 1200 Balance 600 - Medications Medications: Current Medications Dextrose (Dextrose 50% Inj) 0 ml IV STAT PRN; Protocol PRN Reason: Hyglycemia Protocol Last Admin: 11/18/16 06:21 Dose: 50 ml Famotidine (Pepcid) 20 mg IVP Q12 [facility] Last Admin: 11/18/16 22:00 Dose: 20 mg Potassium Chloride 20 meq/ (Sodium Chloride) 1,010 mls @ 100 mls/hr IV .Q10H6M [facility] Last Admin: 11/17/16 22:31 Dose: Not Given Fluconazole 100 mg/ (Miscellaneous) 50 mls @ 100 mls/hr IVPB DAILY [facility] Last Admin: 11/18/16 10:06 Dose: 100 mls/hr Imipenem/Cilastatin Sodium 500 (mg/ Sodium Chloride) 100 mls @ 100 mls/hr IVPB Q6H [facility] Last Admin: 11/19/16 04:01 Dose: 100 mls/hr Metronidazole (Flagyl) 500 mg in 100 mls @ 100 mls/hr IVPB Q8H [facility] Last Admin: 11/19/16 02:57 Dose: 100 mls/hr Potassium Chloride/Dextrose/Sod Cl (Potassium Chl 20 Meq In D5-1/2ns) 1,000 mls @ 100 mls/hr IV .Q10H [facility] Last Admin: 11/19/16 02:00 Dose: Not Given Insulin Aspart (Novolog) 0 unit SC ACHS [facility] PRN Reason: Protocol Last Admin: 07/18/17 07:13 Dose: Not Given Insulin Detemir (Levemir) 15 unit SC DAILY [facility] Last Admin: 11/18/16 09:39 Dose: Not Given Ondansetron HCl (Zofran Inj) 4 mg IVP Q6H PRN PRN Reason: Nausea/Vomiting - Labs Labs: 11/18/16 07:19 11/18/16 16:56 PT 17.5 SECONDS (9.7-12.2) H 11/18/16 16:56 INR 1.5 11/18/16 16:56 APTT 19 SECONDS (21-34) L 11/15/16 22:04 - Constitutional Appears: Well, Non-toxic, No Acute Distress - Head Exam Head Exam: ATRAUMATIC, NORMOCEPHALIC - Eye Exam Eye Exam: Normal appearance. absent: Conjunctival injection, Scleral icterus - ENT Exam ENT Exam: Mucous Membranes Moist, Normal Oropharynx - Respiratory Exam Respiratory Exam: NORMAL BREATHING PATTERN. absent: Accessory Muscle Use, Respiratory Distress - Cardiovascular Exam Cardiovascular Exam: RRR - GI/Abdominal Exam GI & Abdominal Exam: Soft. absent: Distended, Guarding, Tenderness Additional comments: swelling in the lower abdomen - Exam Additional comments: lowe with 35cc's of pink-tinged urine - Extremities Exam Extremities Exam: Normal Capillary Refill. absent: Calf Tenderness, Pedal Edema , Tenderness - Neurological Exam Neurological Exam: Alert, Awake, Oriented x3 - Psychiatric Exam Psychiatric exam: Normal Affect, Normal Mood - Skin Skin Exam: Dry, Intact, Normal Color, Warm Assessment and Plan - Assessment and Plan (Free Text) Assessment: 66 y/o male w/ diarrhea and Ct findings suggestive of sigmoid mass concerning for cancer, with possible urinary bladder involvement, pancreatic cyst Colonoscopy yesterday showed 10cm ulcerating, infiltrative mass in the recto- sigmoid, 3 sesslie polyps in the proximal and distal transverse colon Plan: -f/u colonoscopy/endoscopy biopsy pathology -trend daily labs -f/u urology workup -IV abx -IVFs -pain/nausea medication, GI prophylaxis -ok for diet D/w Dr. Brennan Lin, PGY2
--- NOTE | 2016-11-19 09:19 | PCM.URO ---
Urology Progress Note - General General: Tolerating Diet - Subjective Abdominal Pain: Yes Hematuria: No Dsypnea: No Chest Pain: No Fever & Chills: No - Objective Lab Results Last 24 Hours: Laboratory Results - last 24 hr 11/18/16 11/18/16 11/18/16 11:36 16:36 16:56 PT 17.5 H INR 1.5 Potassium POC Glucose (mg/dL) 97 83 Triglycerides Cholesterol LDL Cholesterol Direct HDL Cholesterol Lipase Hepatitis A IgM Ab Hep Bs Antigen Hep B Core IgM Ab Hepatitis C Antibody HIV 1&2 Antibody Screen 11/18/16 11/18/16 11/18/16 16:56 16:56 16:56 PT INR Potassium 3.8 POC Glucose (mg/dL) Triglycerides 61 D Cholesterol 65 LDL Cholesterol Direct 31 HDL Cholesterol 25 L Lipase < 10 L Hepatitis A IgM Ab Negative Hep Bs Antigen Negative Hep B Core IgM Ab Negative Hepatitis C Antibody Negative HIV 1&2 Antibody Screen Negative 11/18/16 11/19/16 11/19/16 21:34 01:35 06:31 PT INR Potassium POC Glucose (mg/dL) 100 121 H 129 H Triglycerides Cholesterol LDL Cholesterol Direct HDL Cholesterol Lipase Hepatitis A IgM Ab Hep Bs Antigen Hep B Core IgM Ab Hepatitis C Antibody HIV 1&2 Antibody Screen Intake & Output: Intake & Output 11/18/16 11/19/16 11/19/16 18:59 06:59 18:59 Intake Total 2070 1800 Output Total 300 1200 Balance 1770 600 Weight 201 lb Intake: IV 1000 Intake, IV Amount 950 1800 Left Antecubital 950 1800 Oral 120 0 Output: Urine 300 1200 Urethral (Huerta) 300 1200 Other: # Bowel Movements 4 1 Vital Signs: Vital Signs - 24 hr 11/18/16 11/18/16 11/18/16 12:55 14:03 14:18 Temperature 98.4 F 98.1 F Pulse Rate 94 H 91 H 91 H Respiratory 16 20 20 Rate Blood Pressure 108/61 100/63 109/67 O2 Sat by Pulse 100 100 100 Oximetry 11/18/16 11/18/16 11/18/16 14:33 15:09 16:07 Temperature 98.1 F Pulse Rate 90 96 H 88 Respiratory 22 20 Rate Blood Pressure 105/57 L 111/76 O2 Sat by Pulse 100 100 Oximetry 11/18/16 11/19/16 11/19/16 23:30 00:00 03:54 Temperature 98.5 F Pulse Rate 126 H 131 H 110 H Respiratory 20 Rate Blood Pressure 102/69 O2 Sat by Pulse 95 Oximetry 11/19/16 07:40 Temperature 98.3 F Pulse Rate 102 H Respiratory 20 Rate Blood Pressure 101/69 O2 Sat by Pulse 99 Oximetry - Physical Exam Abdominal Exam: Soft, Non-Distended. absent: Non-Tender Back: No CVA Tenderness Genitalia: Without Inflammation Urinary Catheter Draining Well: Yes Urine Color: Clear, Yellow - Plan Catheter Care: Yes Intake & Output: Yes Additional Information: IMP: UROLOGICALLY STABLE. REC: CONSIDER TRIAL OF VOIDING / CATHETER REMOVAL - Date & Time of Note Date: 11/19/16 Time: 09:19
[2016-11-19] MEDS: Fluconazole IV 100mg/50 ml NS 50 ML IVPB SCH (09:35)
[2016-11-19] MEDS: Insulin Detemir 100 units/ml Vial (Levemir) SC SCH (09:36)
[2016-11-19 12:07] LABS: BASO % 0.1 % (0.0-2.0); HEMATOCRIT 32.4 % (35.0-51.0); LYMPH # 1.1 K/uL (1.0-4.3); LYMPH % 8.4 % (20.0-40.0); MEAN CELL VOLUME 68.4 fL (80.0-94.0); MEAN CORPUSCULAR HEMOGLOBIN 21.1 pg (27.0-31.0); MEAN CORPUSCULAR HGB CONC 30.9 g/dL (33.0-37.0); MEAN PLATELET VOLUME 8.8 fL (7.2-11.7); MONO # 1.3 K/uL (0.0-0.8); MONO % 10.7 % (0.0-10.0); NRBC % 0.1 % (0.0-2.0); PLATELET COUNT 129 K/uL (130-400); RED CELL DISTRIBUTION WIDTH 21.1 % (11.5-14.5); WHITE BLOOD COUNT 12.6 K/uL (4.8-10.8)
--- NOTE | 2016-11-19 12:14 | CP.PCM.PN ---
Subjective - Date & Time of Evaluation Date of Evaluation: 11/19/16 Time of Evaluation: 09:00 - Subjective Subjective: Patient underwent EGD and colonoscopy yesterday with biopsies of the colon mass taken Objective - Vital Signs/Intake and Output Vital Signs (last 24 hours): Temp Pulse Resp BP Pulse Ox 98.3 F 102 H 20 101/69 99 11/19/16 07:40 11/19/16 07:40 11/19/16 07:40 11/19/16 07:40 11/19/16 07:40 Intake and Output: 11/19/16 11/19/16 06:59 18:59 Intake Total 1800 Output Total 1200 Balance 600 - Medications Medications: Current Medications Dextrose (Dextrose 50% Inj) 0 ml IV STAT PRN; Protocol PRN Reason: Hyglycemia Protocol Last Admin: 11/18/16 06:21 Dose: 50 ml Famotidine (Pepcid) 20 mg IVP Q12 [facility] Last Admin: 11/19/16 09:35 Dose: 20 mg Potassium Chloride 20 meq/ (Sodium Chloride) 1,010 mls @ 100 mls/hr IV .Q10H6M [facility] Last Admin: 11/17/16 22:31 Dose: Not Given Imipenem/Cilastatin Sodium 500 (mg/ Sodium Chloride) 100 mls @ 100 mls/hr IVPB Q6H [facility] Last Admin: 11/19/16 08:14 Dose: 100 mls/hr Metronidazole (Flagyl) 500 mg in 100 mls @ 100 mls/hr IVPB Q8H [facility] Last Admin: 11/19/16 11:25 Dose: 100 mls/hr Potassium Chloride/Dextrose/Sod Cl (Potassium Chl 20 Meq In D5-1/2ns) 1,000 mls @ 100 mls/hr IV .Q10H [facility] Last Admin: 11/19/16 02:00 Dose: Not Given Fluconazole (Diflucan Iv 100 Mg/50 Ml Ns) 50 mls @ 100 mls/hr IVPB DAILY [facility] Last Admin: 11/19/16 09:35 Dose: 100 mls/hr Insulin Aspart (Novolog) 0 unit SC ACHS [facility] PRN Reason: Protocol Last Admin: 11/19/16 07:13 Dose: Not Given Insulin Detemir (Levemir) 15 unit SC DAILY [facility] Last Admin: 11/19/16 09:36 Dose: Not Given Ondansetron HCl (Zofran Inj) 4 mg IVP Q6H PRN PRN Reason: Nausea/Vomiting - Labs Labs: 11/18/16 07:19 11/18/16 16:56 PT 17.5 SECONDS (9.7-12.2) H 11/18/16 16:56 INR 1.5 11/18/16 16:56 APTT 19 SECONDS (21-34) L 11/15/16 22:04 - Constitutional Appears: Non-toxic - Head Exam Head Exam: NORMOCEPHALIC - Eye Exam Eye Exam: absent: Scleral icterus - ENT Exam ENT Exam: Normal External Ear Exam - Neck Exam Neck Exam: absent: Lymphadenopathy - Respiratory Exam Respiratory Exam: Decreased Breath Sounds, Rhonchi - Cardiovascular Exam Cardiovascular Exam: REGULAR RHYTHM, +S1, +S2 - GI/Abdominal Exam GI & Abdominal Exam: Distended, Soft - Rectal Exam Rectal Exam: Deferred Assessment and Plan - Assessment and Plan (Free Text) Plan: blood growing e coli await bx / path report surgery on board
[2016-11-19 12:21] LABS: CHLORIDE 100 mmol/L (98-107); POTASSIUM 3.5 mmol/L (3.6-5.2); SODIUM 135 mmol/L (132-148)
[2016-11-19 12:23] LABS: ALB/GLOB RATIO 0.6 (1.0-2.1); ALKALINE PHOSPHATASE 111 U/L (38-126); AST/SGOT 16 U/L (17-59); BLOOD UREA NITROGEN 14 mg/dL (9-20); CARBON DIOXIDE 23 mmol/L (22-30); GFR AFRICAN-AMERICAN > 60; GLUCOSE,RANDOM 166 mg/dL (75-110)
[2016-11-19 12:24] LABS: ALT/SGPT 36 U/L (21-72); CALCIUM 7.2 mg/dl (8.6-10.4); MAGNESIUM 1.6 mg/dL (1.6-2.3)
[2016-11-19 12:41] LABS: EOSINOPHIL 1 % (0-4); NEUTROPHIL 58 % (50-75); TOTAL CELLS COUNTED 100
[2016-11-19 12:44] LABS: LARGE PLATELETS PRESENT
--- NOTE | 2016-11-19 13:28 | CP.PCM.CON ---
History of Present Illness - History of Present Illness History of Present Illness: 66 year old male with a history of HTN, DM, pancreatitis, found to have a partially obstructing colonic mass s/p biopsy, and pancreatic lesion. The patient reports to chronic intermittent pelvic discomfort associated with diarrhea. He does have intermittent nausea but no weightloss. He denies fevers and chills. Past medical history: DM, HTN Past surgical history: None Family history: Mother had breast cancer Social history: Denies tobacco, alcohol, and illicit drug use. Allergies: NKA Review of systems: All remaining review of systems including HEENT, cardiovascular, respiratory, gastrointestinal, genitourinary, musculoskeletal, dermatologic, neurologic, and psychiatric are negative unless mentioned in the HPI. Past Patient History - Past Medical History & Family History Past Medical History?: No - Past Social History Smoking Status: Never Smoked - CARDIAC Hx Hypertension: Yes - PULMONARY Hx Respiratory Disorders: No - NEUROLOGICAL Hx Neurological Disorder: No - HEENT Hx HEENT Problems: No - RENAL Hx Chronic Kidney Disease: No - ENDOCRINE/METABOLIC Hx Diabetes Mellitus Type 2: Yes - HEMATOLOGICAL/ONCOLOGICAL Hx Blood Disorders: No Hx Blood Transfusions: No - INTEGUMENTARY Hx Dermatological Problems: No - MUSCULOSKELETAL/RHEUMATOLOGICAL Hx Falls: Yes - GASTROINTESTINAL Hx Gastrointestinal Disorders: No - GENITOURINARY/GYNECOLOGICAL Hx Genitourinary Disorders: No - PSYCHIATRIC Hx Substance Use: No - SURGICAL HISTORY Hx Surgeries: Yes - ANESTHESIA Hx Anesthesia: Yes Hx Anesthesia Reactions: No Hx Malignant Hyperthermia: No Meds Allergies/Adverse Reactions: Allergies Allergy/AdvReac Type Severity Reaction Status Date / Time No Known Allergies Allergy Verified 11/15/16 21:27 - Medications Medications: Current Medications Dextrose (Dextrose 50% Inj) 0 ml IV STAT PRN; Protocol PRN Reason: Hyglycemia Protocol Last Admin: 11/18/16 06:21 Dose: 50 ml Famotidine (Pepcid) 20 mg IVP Q12 [facility] Last Admin: 11/19/16 09:35 Dose: 20 mg Potassium Chloride 20 meq/ (Sodium Chloride) 1,010 mls @ 100 mls/hr IV .Q10H6M [facility] Last Admin: 11/17/16 22:31 Dose: Not Given Imipenem/Cilastatin Sodium 500 (mg/ Sodium Chloride) 100 mls @ 100 mls/hr IVPB Q6H [facility] Last Admin: 07/18/17 08:14 Dose: 100 mls/hr Metronidazole (Flagyl) 500 mg in 100 mls @ 100 mls/hr IVPB Q8H [facility] Last Admin: 11/19/16 11:25 Dose: 100 mls/hr Potassium Chloride/Dextrose/Sod Cl (Potassium Chl 20 Meq In D5-1/2ns) 1,000 mls @ 100 mls/hr IV .Q10H [facility] Last Admin: 11/19/16 02:00 Dose: Not Given Fluconazole (Diflucan Iv 100 Mg/50 Ml Ns) 50 mls @ 100 mls/hr IVPB DAILY [facility] Last Admin: 11/19/16 09:35 Dose: 100 mls/hr Insulin Aspart (Novolog) 0 unit SC ACHS [facility] PRN Reason: Protocol Last Admin: 11/19/16 07:13 Dose: Not Given Insulin Detemir (Levemir) 15 unit SC DAILY [facility] Last Admin: 11/19/16 09:36 Dose: Not Given Ondansetron HCl (Zofran Inj) 4 mg IVP Q6H PRN PRN Reason: Nausea/Vomiting Physical Exam - Head Exam Head Exam: ATRAUMATIC - Eye Exam Eye Exam: Normal appearance - ENT Exam ENT Exam: Mucous Membranes Dry - Respiratory Exam Respiratory Exam: NORMAL BREATHING PATTERN - Cardiovascular Exam Cardiovascular Exam: +S1, +S2 - GI/Abdominal Exam GI & Abdominal Exam: Normal Bowel Sounds - Extremities Exam Extremities exam: Positive for: normal inspection - Neurological Exam Neurological exam: Oriented x3 - Psychiatric Exam Psychiatric exam: Normal Affect, Normal Mood - Skin Skin Exam: Warm Results - Vital Signs Recent Vital Signs: Last Vital Signs Temp 98.3 F 11/19/16 07:40 Pulse 102 H 11/19/16 07:40 Resp 20 11/19/16 07:40 BP 101/69 11/19/16 07:40 Pulse Ox 99 11/19/16 07:40 - Labs Result Diagrams: 11/19/16 11:56 11/19/16 11:56 Labs: Laboratory Results - last 24 hr 11/18/16 11/18/16 11/18/16 16:36 16:56 16:56 WBC RBC Hgb Hct MCV MCH MCHC RDW Plt Count MPV Neut % (Auto) Lymph % (Auto) [place] % (Auto) Eos % (Auto) Baso % (Auto) Neut # Lymph # [place] # Eos # Baso # Neutrophils % (Manual) Band Neutrophils % Lymphocytes % (Manual) Monocytes % (Manual) Eosinophils % (Manual) Platelet Estimate Large Platelets Hypochromasia (manual) Poikilocytosis (manual Anisocytosis (manual) Microcytosis (manual) Ovalocytes [place] Cells PT 17.5 H INR 1.5 Sodium Potassium 3.8 Chloride Carbon Dioxide Anion Gap BUN Creatinine Est GFR ( Amer) Est GFR (Non-Af Amer) POC Glucose (mg/dL) 83 Random Glucose Calcium Phosphorus Magnesium Total Bilirubin AST ALT Alkaline Phosphatase Total Protein Albumin Globulin Albumin/Globulin Ratio Triglycerides 61 D Cholesterol 65 LDL Cholesterol Direct 31 HDL Cholesterol 25 L Lipase < 10 L Hepatitis A IgM Ab Hep Bs Antigen Hep B Core IgM Ab Hepatitis C Antibody HIV 1&2 Antibody Screen 11/18/16 11/18/16 11/18/16 16:56 16:56 21:34 WBC RBC Hgb Hct MCV MCH MCHC RDW Plt Count MPV Neut % (Auto) Lymph % (Auto) [place] % (Auto) Eos % (Auto) Baso % (Auto) Neut # Lymph # [place] # Eos # Baso # Neutrophils % (Manual) Band Neutrophils % Lymphocytes % (Manual) Monocytes % (Manual) Eosinophils % (Manual) Platelet Estimate Large Platelets Hypochromasia (manual) Poikilocytosis (manual Anisocytosis (manual) Microcytosis (manual) Ovalocytes [place] Cells PT INR Sodium Potassium Chloride Carbon Dioxide Anion Gap BUN Creatinine Est GFR ( Amer) Est GFR (Non-Af Amer) POC Glucose (mg/dL) 100 Random Glucose Calcium Phosphorus Magnesium Total Bilirubin AST ALT Alkaline Phosphatase Total Protein Albumin Globulin Albumin/Globulin Ratio Triglycerides Cholesterol LDL Cholesterol Direct HDL Cholesterol Lipase Hepatitis A IgM Ab Negative Hep Bs Antigen Negative Hep B Core IgM Ab Negative Hepatitis C Antibody Negative HIV 1&2 Antibody Screen Negative 11/19/16 11/19/16 11/19/16 01:35 06:31 11:15 WBC RBC Hgb Hct MCV MCH MCHC RDW Plt Count MPV Neut % (Auto) Lymph % (Auto) [place] % (Auto) Eos % (Auto) Baso % (Auto) Neut # Lymph # [place] # Eos # Baso # Neutrophils % (Manual) Band Neutrophils % Lymphocytes % (Manual) Monocytes % (Manual) Eosinophils % (Manual) Platelet Estimate Large Platelets Hypochromasia (manual) Poikilocytosis (manual Anisocytosis (manual) Microcytosis (manual) Ovalocytes [place] Cells PT INR Sodium Potassium Chloride Carbon Dioxide Anion Gap BUN Creatinine Est GFR ( Amer) Est GFR (Non-Af Amer) POC Glucose (mg/dL) 121 H 129 H 211 H Random Glucose Calcium Phosphorus Magnesium Total Bilirubin AST ALT Alkaline Phosphatase Total Protein Albumin Globulin Albumin/Globulin Ratio Triglycerides Cholesterol LDL Cholesterol Direct HDL Cholesterol Lipase Hepatitis A IgM Ab Hep Bs Antigen Hep B Core IgM Ab Hepatitis C Antibody HIV 1&2 Antibody Screen 11/19/16 11/19/16 11:56 11:56 WBC 12.6 H RBC 4.74 Hgb 10.0 L Hct 32.4 L MCV 68.4 L MCH 21.1 L MCHC 30.9 L RDW 21.1 H Plt Count 129 L MPV 8.8 Neut % (Auto) 80.8 H Lymph % (Auto) 8.4 L [place] % (Auto) 10.7 H Eos % (Auto) 0.0 Baso % (Auto) 0.1 Neut # 10.2 H Lymph # 1.1 [place] # 1.3 H Eos # 0.0 Baso # 0.0 Neutrophils % (Manual) 58 Band Neutrophils % 26 H* Lymphocytes % (Manual) 3 L Monocytes % (Manual) 12 H Eosinophils % (Manual) 1 Platelet Estimate Slightly decreased L Large Platelets Present Hypochromasia (manual) Moderate Poikilocytosis (manual Slight Anisocytosis (manual) Moderate Microcytosis (manual) Slight Ovalocytes Moderate [place] Cells Slight PT INR Sodium 135 Potassium 3.5 L Chloride 100 Carbon Dioxide 23 Anion Gap 15 BUN 14 Creatinine 0.5 L Est GFR ( Amer) > 60 Est GFR (Non-Af Amer) > 60 POC Glucose (mg/dL) Random Glucose 166 H Calcium 7.2 L Phosphorus 4.0 Magnesium 1.6 Total Bilirubin 1.0 AST 16 L ALT 36 Alkaline Phosphatase 111 Total Protein 5.0 L Albumin 1.9 L Globulin 3.1 Albumin/Globulin Ratio 0.6 L Triglycerides Cholesterol LDL Cholesterol Direct HDL Cholesterol Lipase Hepatitis A IgM Ab Hep Bs Antigen Hep B Core IgM Ab Hepatitis C Antibody HIV 1&2 Antibody Screen Assessment & Plan (1) Anemia Assessment and Plan: rule out iron deficiency; ferritin sent Status: Acute (2) Thrombocytopenia Assessment and Plan: mild cont. to monitor Status: Acute (3) Leucocytosis Assessment and Plan: on antibiotics CT scan suggestive of intraabdominal abscess Status: Acute (4) Colonic mass Assessment and Plan: s/p colonoscopy with biopsy f/u path surgical f/u Status: Acute (5) Pancreatic lesion Assessment and Plan: for EUS f/u tumor markers Thank you for this interesting consult. Status: Acute
--- NOTE | 2016-11-19 15:34 | CP.PCM.PN ---
<Jose Coffman R - Last Filed: 11/19/16 17:05> Subjective - Date & Time of Evaluation Date of Evaluation: 11/19/16 Time of Evaluation: 11:30 - Subjective Subjective: Patient was S and E at bedside. Patient stated he had crampy pain in his left lower quadrant. The patient was asking questions regarding his diagnosis and I informed him of the 10 cm mass and that we're waiting for the results of the biopsy. He denied cp, sob, f/c, n/v/d/c. Objective - Vital Signs/Intake and Output Vital Signs (last 24 hours): Temp Pulse Resp BP Pulse Ox 98.3 F 102 H 20 101/69 99 11/19/16 07:40 11/19/16 07:40 11/19/16 07:40 11/19/16 07:40 11/19/16 07:40 Intake and Output: 11/19/16 11/19/16 06:59 18:59 Intake Total 1800 1220 Output Total 1200 180 Balance 600 1040 - Medications Medications: Current Medications Dextrose (Dextrose 50% Inj) 0 ml IV STAT PRN; Protocol PRN Reason: Hyglycemia Protocol Last Admin: 11/18/16 06:21 Dose: 50 ml Famotidine (Pepcid) 20 mg IVP Q12 [facility] Last Admin: 11/19/16 09:35 Dose: 20 mg Potassium Chloride 20 meq/ (Sodium Chloride) 1,010 mls @ 100 mls/hr IV .Q10H6M [facility] Last Admin: 11/17/16 22:31 Dose: Not Given Imipenem/Cilastatin Sodium 500 (mg/ Sodium Chloride) 100 mls @ 100 mls/hr IVPB Q6H [facility] Last Admin: 11/19/16 13:52 Dose: 100 mls/hr Metronidazole (Flagyl) 500 mg in 100 mls @ 100 mls/hr IVPB Q8H [facility] Last Admin: 11/19/16 11:25 Dose: 100 mls/hr Potassium Chloride/Dextrose/Sod Cl (Potassium Chl 20 Meq In D5-1/2ns) 1,000 mls @ 100 mls/hr IV .Q10H [facility] Last Admin: 11/19/16 13:54 Dose: Not Given Fluconazole (Diflucan Iv 100 Mg/50 Ml Ns) 50 mls @ 100 mls/hr IVPB DAILY [facility] Last Admin: 11/19/16 09:35 Dose: 100 mls/hr Insulin Aspart (Novolog) 0 unit SC ACHS [facility] PRN Reason: Protocol Last Admin: 11/19/16 11:30 Dose: Not Given Insulin Detemir (Levemir) 15 unit SC DAILY [facility] Last Admin: 11/19/16 09:36 Dose: Not Given Ondansetron HCl (Zofran Inj) 4 mg IVP Q6H PRN PRN Reason: Nausea/Vomiting - Labs Labs: 11/19/16 11:56 11/19/16 11:56 PT 17.5 SECONDS (9.7-12.2) H 11/18/16 16:56 INR 1.5 11/18/16 16:56 APTT 19 SECONDS (21-34) L 11/15/16 22:04 - Constitutional Appears: No Acute Distress, Unkempt, Chronically Ill - Head Exam Head Exam: NORMAL INSPECTION - Eye Exam Eye Exam: EOMI, Normal appearance, PERRL - ENT Exam ENT Exam: Mucous Membranes Moist, Normal Exam - Neck Exam Neck Exam: Full ROM, Normal Inspection - Respiratory Exam Respiratory Exam: Clear to Ausculation Bilateral, NORMAL BREATHING PATTERN. absent: Wheezes - Cardiovascular Exam Cardiovascular Exam: REGULAR RHYTHM, RRR, +S1, +S2 - GI/Abdominal Exam GI & Abdominal Exam: Soft, Normal Bowel Sounds. 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 Advanced diet to liquid - will advance as tolerated. B/l upper and lower extremity duplex scans were ordered today. 11/18: Patient is s/p EGD/Colonoscopy. A 10cm partially obstructing sigmoid mass was seen and biopsied. Multiple polyps were seen and resected. Heme/Onc, Dr Garcia has been consulted, we will follow up with his recommendations. 11/17: Still having the diarrhea. The C diff studies are pending. He will need to be on IV Flagyl. 11/16: Pending CT of abd / pelvis results. The appears to be a possible pancreatic area mass as well as colonic mass. The night team has already ordered tumor markers as well as stool studies. Abx were also ordered and the WBC decreased. CT chest abdomen and pelvis findings as noted: suspected sigmoid and proximal rectum mass lesion without evidence of high grade bowel obstruction; suspected abscess formation; cystic mass lesion noted at pancreas with surrounding fat stranding of the pancreatic tail; large gallstones without evidence of acute cholecystitis GI consult (Dr. Srivastava)---> Help appreciated General Surgery Consult (Dr. Amin)----> Help appreciated Urology Consult ( Dr. Jon)----> Help appreciated * All consulted due to unofficial read of CT Scan of chest/abdomen/pelvis: Intra -abdominal abscess/malignancy and bladder wall thickening * Still pending official radiologist report Potassium chloride/dextrose/sodium cl @ 100ml/hr iv q10 Stool culture negative for salmonella, shigella, campylobacter Stool leukocytes negative Ova and parasites not seen C. diffi toxin AB negative (2) Syncope - possibly secondary to ongoing diarrhea 11/19: Discontinued lowe, started a voiding trial today. 11/17: Feeling better today, continue with the IVF. He is tolerating the the liquid diet 11/16: Continue with the IVF, he reports diarrhea, also the patient reports poor PO intake. He looks dry on exam. He recently had an echo done on 10/[address]. His head CT was negative Also stop the blood pressure medication (3) Gram - negative positive blood cultures 11/19: HIV screen negative, Hep panel negative. Bands 26 today. 11/18: HIV 1&2 antibodies, Hep panel were ordered today. ID has been consulted, Dr Burns, we will follow his recommendations. 11/17: Changed to IV Primaxin 500mg IV Q6 Follow cultures. Currently blood pressure and HR stable. Nonfebrile. Continue with the IVF, monitor lowe outputs (4) Urinary tract infection 11/18: repeat urine culture ordered today as previous urine culture came back contaminated UA: Leukocytes esterase : 2+ WBC: 187 Yeast Budding: (positive) * Fluconazole 100mg IVPB daily (5) Metabolic acidosis, increased anion gap Improving with IVF Secondary to ketosis On admission: 33 After NS 0.9% @ 100mls/hr: 20 (6) Hypertension 11/16: Will hold lisnopril at this time (7) Uncontrolled diabetes mellitus Recent HgbA1C: 9.0 (09/28/16) Accuchecks ISS Levemir 15 units Hold glipizide (8) Ulcerated mucosa of esophagus 11/18: Per endoscopy report -> Ulcerated mucosa in the lower third of the esophagus was seen and biopsied. Patient is on pepcid iv 20mg q12. 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 Lipase level and lipid panel was ordered today. 11/17: CA 19-9 wnl (10) Cholelithiasis 11/18: CT abd/pelvis shows large gallstones without evidence of acute cholecystitis. (11) Prophylactic measure SCD (Contraindicated due to LE edema) Pepcid IV 20mg Q12H <Blanco Rivera - Last Filed: 11/20/16 16:31> Objective - Vital Signs/Intake and Output Vital Signs (last 24 hours): Temp Pulse Resp BP Pulse Ox 97.1 F L 96 H 17 109/78 98 11/20/16 15:00 11/20/16 15:30 11/20/16 15:30 11/20/16 15:30 11/20/16 15:30 Intake and Output: 11/20/16 11/20/16 06:59 18:59 Intake Total 1220 1050 Output Total 75 Balance 1145 1050 - Medications Medications: Current Medications Dextrose (Dextrose 50% Inj) 0 ml IV STAT PRN; Protocol PRN Reason: Hyglycemia Protocol Last Admin: 11/18/16 06:21 Dose: 50 ml Famotidine (Pepcid) 20 mg IVP Q12 [facility] Last Admin: 11/20/16 09:07 Dose: 20 mg Potassium Chloride 20 meq/ (Sodium Chloride) 1,010 mls @ 100 mls/hr IV .Q10H6M [facility] Last Admin: 11/17/16 22:31 Dose: Not Given Imipenem/Cilastatin Sodium 500 (mg/ Sodium Chloride) 100 mls @ 100 mls/hr IVPB Q6H [facility] Last Admin: 11/20/16 16:13 Dose: 100 mls/hr Metronidazole (Flagyl) 500 mg in 100 mls @ 100 mls/hr IVPB Q8H [facility] Last Admin: 11/20/16 10:50 Dose: 100 mls/hr Potassium Chloride/Dextrose/Sod Cl (Potassium Chl 20 Meq In D5-1/2ns) 1,000 mls @ 100 mls/hr IV .Q10H [facility] Last Admin: 11/20/16 09:08 Dose: Not Given Fluconazole (Diflucan Iv 100 Mg/50 Ml Ns) 50 mls @ 100 mls/hr IVPB DAILY [facility] Last Admin: 11/20/16 09:06 Dose: 100 mls/hr Insulin Aspart (Novolog) 0 unit SC ACHS [facility] PRN Reason: Protocol Last Admin: 11/20/16 11:50 Dose: Not Given Insulin Detemir (Levemir) 15 unit SC DAILY [facility] Last Admin: 11/20/16 09:07 Dose: Not Given Ondansetron HCl (Zofran Inj) 4 mg IVP Q6H PRN PRN Reason: Nausea/Vomiting - Labs Labs: 11/20/16 06:43 11/20/16 06:43 PT 19.3 SECONDS (9.7-12.2) H 11/20/16 07:44 INR 1.7 11/20/16 07:44 APTT 19 SECONDS (21-34) L 11/15/16 22:04 Attending/Attestation - Attestation I have personally seen and examined this patient.: Yes I have fully participated in the care of the patient.: Yes I have reviewed all pertinent clinical information, including history, physical exam and plan: Yes Notes (Text): 11/20/16 16:30 Patient was seen and examined at bedside with the resident Patient is status post EGD and colonoscopy Follow-up the results of the biopsy Patient is plan for endoscopic ultrasound likely in the morning Follow-up recommendations of hematology/oncology and gastroenterology. I discussed the plan of care with the resident and I agree with the history and physical and assessment/plan but the resident.
[2016-11-20] MEDS: metroNIDAZOLE IV 500 mg/100 ml 500 MG/100 ML BAG IVPB SCH ×3 (02:10→17:02)
[2016-11-20 06:55] LABS: BASO % 0.2 % (0.0-2.0); EOS % 0.2 % (0.0-4.0); HEMATOCRIT 28.9 % (35.0-51.0); LYMPH % 12.2 % (20.0-40.0); MEAN CELL VOLUME 67.9 fL (80.0-94.0); MEAN CORPUSCULAR HEMOGLOBIN 21.6 pg (27.0-31.0); MEAN CORPUSCULAR HGB CONC 31.8 g/dL (33.0-37.0); MEAN PLATELET VOLUME 8.8 fL (7.2-11.7); MONO # 0.8 K/uL (0.0-0.8); NRBC % 0.1 % (0.0-2.0); RED CELL DISTRIBUTION WIDTH 21.1 % (11.5-14.5); WHITE BLOOD COUNT 8.2 K/uL (4.8-10.8)
[2016-11-20 07:18] LABS: CHLORIDE 101 mmol/L (98-107); SODIUM 132 mmol/L (132-148)
[2016-11-20 07:19] LABS: POTASSIUM 3.9 mmol/L (3.6-5.2)
[2016-11-20 07:21] LABS: ALB/GLOB RATIO 0.6 (1.0-2.1); ALKALINE PHOSPHATASE 102 U/L (38-126); ALT/SGPT 34 U/L (21-72); AST/SGOT 11 U/L (17-59); BILIRUBIN,TOTAL 0.6 mg/dL (0.2-1.3); BLOOD UREA NITROGEN 16 mg/dL (9-20); CALCIUM 6.8 mg/dl (8.6-10.4); CARBON DIOXIDE 22 mmol/L (22-30); GFR AFRICAN-AMERICAN > 60; GLUCOSE,RANDOM 277 mg/dL (75-110); PHOSPHOROUS 2.9 mg/dL (2.5-4.5); TOTAL PROTEIN 4.6 g/dL (6.3-8.3)
[2016-11-20 07:22] LABS: MAGNESIUM 1.5 mg/dL (1.6-2.3)
[2016-11-20] MEDS: (Novolog) Insulin Aspart, Recombinant 100 u/ml 10 ml vial SC SCH ×4 (07:30→21:30)
[2016-11-20 08:00] LABS: INR 1.7
[2016-11-20] MEDS: Fluconazole IV 100mg/50 ml NS 50 ML IVPB SCH (09:06)
[2016-11-20] MEDS: Insulin Detemir 100 units/ml Vial (Levemir) SC SCH (09:07)
[2016-11-20] MEDS: Potassium Ch 20mEq in D5-1/2NS 1,000 ML IV SCH ×2 (09:08→17:03)
[2016-11-20] MEDS ORDERED: (Novolog) Insulin Aspart, Recombinant 100 u/ml 10 ml vial SC STA (11:30)
[2016-11-20] MEDS: Magnesium Sulfate 1 gm in D5W 1 GM/100 ML BAG IVPB SCH ×2 (11:38→12:47)
[2016-11-20] MEDS ORDERED: Propofol 10 mg/ml Inj (20 ML) ONE (14:21)
[2016-11-20] MEDS ORDERED: Etomidate 20 mg/10ml Inj IV ONE (14:21)
[2016-11-20] MEDS ORDERED: Phenylephrine 10 mg/ml Inj ONE (14:49)
--- NOTE | 2016-11-20 15:02 | VASCLAB ---
PROCEDURE: Lower Extremity Venous Duplex Exam. HISTORY: high risk for dvt PRIORS: None. TECHNIQUE: Bilateral common femoral, femoral, popliteal and posterior tibial, peroneal and great saphenous veins were evaluated. Flow was assessed with color Doppler, compressibility, assessment of phasic flow and augmentation response. Report prepared by Ike Diaz, MARIA ESTHER, RVT FINDINGS: RIGHT: 1. Common Femoral Vein: 1.1. Compressibility - Fully compressible: Thrombus - None : Flow - Phasic: Augmentation -Normal: Reflux - None. 2. Femoral Vein: 2.1. Compressibility - Fully compressible: Thrombus - None : Flow - Phasic: Augmentation -Normal: Reflux - None. 3. Popliteal Vein: 3.1. Compressibility - Fully compressible: Thrombus - None : Flow - Phasic: Augmentation -Normal: Reflux - None. 4. Posterior Tibial Vein: 4.1. Compressibility - Fully compressible: Thrombus - None: Flow - Phasic: Augmentation -Normal: Reflux - None. 5. Peroneal Vein: 5.1. Compressibility - Fully compressible: Thrombus - None: Flow - Phasic: Augmentation -Normal: Reflux - None. 6. Great Saphenous Vein: 6.1. Compressibility - Fully compressible: Thrombus - None: Flow - Phasic: Augmentation - Normal: Reflux - None. LEFT: 1. Common Femoral Vein: 1.1. Compressibility - Fully compressible: Thrombus - None: Flow - Phasic: Augmentation -Normal: Reflux - None. 2. Femoral Vein: 2.1. Compressibility - Fully compressible: Thrombus - None: Flow - Phasic: Augmentation -Normal: Reflux - None. 3. Popliteal Vein: 3.1. Compressibility - Fully compressible: Thrombus - None : Flow - Phasic: Augmentation -Normal: Reflux - None. 4. Posterior Tibial Vein: 4.1. Compressibility - Fully compressible: Thrombus - None: Flow - Phasic: Augmentation -Normal: Reflux - None. 5. Peroneal Vein: 5.1. Compressibility - Fully compressible: Thrombus - None: Flow - Phasic: Augmentation -Normal: Reflux - None. 6. Great Saphenous Vein: 6.1. Compressibility - Fully compressible: Thrombus - None: Flow - Phasic: Augmentation - Normal: Reflux - None. OTHER FINDINGS: Right: None significant. Left: None significant. IMPRESSION: Right: No evidence of deep or superficial vein thrombosis of the right lower extremity. Normal valve function noted of the right side. Left: No evidence of deep or superficial vein thrombosis of the left lower extremity. Normal valve function noted of the left side.
--- NOTE | 2016-11-20 15:02 | VASCLAB ---
PROCEDURE: Upper Extremity Venous Duplex Exam HISTORY: left arm swelling and pain PRIORS: None. TECHNIQUE: Bilateral upper extremity, internal jugular, subclavian, axillary, brachial, ulnar, radial, basilic and upper cephalic veins were evaluated. Flow was assessed with color Doppler, compressibility, assessment of phasic flow and augmentation response. Report prepared by MARIA ESTHER Ricks, RVT FINDINGS: RIGHT: 1. Internal Jugular: 1.1. Compressibility - Fully compressible: Thrombus - None : Flow - Phasic: Augmentation -Normal: Reflux - None. 2. Subclavian: 2.1. Compressibility - Incompressible: Thrombus - Acute : Flow - Absent : Augmentation -None: Reflux - None. 3. Axillary: 3.1. Compressibility - Partial: Thrombus - Acute : Flow - Absent : Augmentation -None: Reflux - None. 4. Brachial: 4.1. Compressibility - Partial: Thrombus - Acute: Flow - Absent : Augmentation -None: Reflux - None. 5. Ulnar: 5.1. Compressibility - Fully compressible: Thrombus - None: Flow - Phasic: Augmentation -Normal: Reflux - None. 6. Radial: 6.1. Compressibility - Fully compressible: Thrombus - None: Flow - Phasic: Augmentation - Normal: Reflux - None. 7. Cephalic: 7.1. Compressibility - Fully compressible: Thrombus - None: Flow - Phasic: Augmentation -Normal: Reflux - None. 8. Basilic: 8.1. Compressibility - Fully compressible: Thrombus - None: Flow - Phasic: Augmentation -Normal: Reflux - None. LEFT: 1. Internal Jugular: 1.1. Compressibility - Fully compressible: Thrombus - None : Flow - Phasic: Augmentation -Normal: Reflux - None. 2. Subclavian: 2.1. Compressibility - Fully compressible: Thrombus - None : Flow - Phasic: Augmentation -Normal: Reflux - None. 3. Axillary: 3.1. Compressibility - Fully compressible: Thrombus - None : Flow - Phasic: Augmentation -Normal: Reflux - None. 4. Brachial: 4.1. Compressibility - Fully compressible: Thrombus - None: Flow - Phasic: Augmentation -Normal: Reflux - None. 5. Ulnar: 5.1. Compressibility - Fully compressible: Thrombus - None: Flow - Phasic: Augmentation -Normal: Reflux - None. 6. Radial: 6.1. Compressibility - Fully compressible: Thrombus - None: Flow - Phasic: Augmentation - Normal: Reflux - None. 7. Cephalic: 7.1. Compressibility - Incompressible: Thrombus - Acute: Flow - Absent : Augmentation -None: Reflux - None. 8. Basilic: 8.1. Compressibility - Fully compressible: Thrombus - None: Flow - Phasic: Augmentation -Normal: Reflux - None. OTHER FINDINGS: HARSHAD Merrill notified about the finding. IMPRESSION: Right: Acute thrombosis of the right subclavian, axillary and brachial veins with severe reduction of the venous return. Left: Acute thrombosis of the left cephalic vein with severe reduction of the venous return.
--- NOTE | 2016-11-20 18:03 | CP.PCM.PN ---
<AugustusJose R - Last Filed: 11/20/16 18:00> Subjective - Date & Time of Evaluation Date of Evaluation: 11/20/16 Time of Evaluation: 08:15 - Subjective Subjective: Patient S and E at bedside. Patient c/o of pain in lower left quadrant. He also stated that he was hungry but understood that he had to be npo for his EUS procedure today. He denied cp, sob, n/v/c, f/c, bleeding, palpitations, dysuria , urinary retention. Objective - Vital Signs/Intake and Output Vital Signs (last 24 hours): Temp Pulse Resp BP Pulse Ox 97.3 F L 92 H 20 132/84 100 11/20/16 15:51 11/20/16 15:51 11/20/16 15:51 11/20/16 15:51 11/20/16 15:51 Intake and Output: 11/20/16 11/20/16 06:59 18:59 Intake Total 1220 1050 Output Total 75 Balance 1145 1050 - Medications Medications: Current Medications Dextrose (Dextrose 50% Inj) 0 ml IV STAT PRN; Protocol PRN Reason: Hyglycemia Protocol Last Admin: 11/18/16 06:21 Dose: 50 ml Enoxaparin Sodium (Lovenox) 90 mg SC Q12 [facility] Famotidine (Pepcid) 20 mg IVP Q12 [facility] Last Admin: 11/20/16 09:07 Dose: 20 mg Potassium Chloride 20 meq/ (Sodium Chloride) 1,010 mls @ 100 mls/hr IV .Q10H6M [facility] Last Admin: 11/17/16 22:31 Dose: Not Given Imipenem/Cilastatin Sodium 500 (mg/ Sodium Chloride) 100 mls @ 100 mls/hr IVPB Q6H [facility] Last Admin: 11/20/16 16:13 Dose: 100 mls/hr Metronidazole (Flagyl) 500 mg in 100 mls @ 100 mls/hr IVPB Q8H [facility] Last Admin: 11/20/16 17:02 Dose: 100 mls/hr Potassium Chloride/Dextrose/Sod Cl (Potassium Chl 20 Meq In D5-1/2ns) 1,000 mls @ 100 mls/hr IV .Q10H [facility] Last Admin: 11/20/16 17:03 Dose: Not Given Fluconazole (Diflucan Iv 100 Mg/50 Ml Ns) 50 mls @ 100 mls/hr IVPB DAILY [facility] Last Admin: 11/20/16 09:06 Dose: 100 mls/hr Insulin Aspart (Novolog) 0 unit SC ACHS [facility] PRN Reason: Protocol Last Admin: 11/20/16 17:49 Dose: 6 unit Insulin Detemir (Levemir) 15 unit SC DAILY [facility] Last Admin: 11/20/16 09:07 Dose: Not Given Ondansetron HCl (Zofran Inj) 4 mg IVP Q6H PRN PRN Reason: Nausea/Vomiting - Labs Labs: 11/20/16 06:43 11/20/16 06:43 PT 19.3 SECONDS (9.7-12.2) H 11/20/16 07:44 INR 1.7 11/20/16 07:44 APTT 19 SECONDS (21-34) L 11/15/16 22:04 - Constitutional Appears: Well, Non-toxic, No Acute Distress - Head Exam Head Exam: ATRAUMATIC, NORMAL INSPECTION, NORMOCEPHALIC - Eye Exam Eye Exam: Normal appearance - ENT Exam ENT Exam: Normal Exam - Neck Exam Neck Exam: Normal Inspection - Respiratory Exam Respiratory Exam: Clear to Ausculation Bilateral, NORMAL BREATHING PATTERN - Cardiovascular Exam Cardiovascular Exam: REGULAR RHYTHM, +S1, +S2. absent: Murmur - GI/Abdominal Exam GI & Abdominal Exam: Tenderness Additional comments: (+) to TTP in lower left quadrant - Rectal Exam Rectal Exam: Deferred - Extremities Exam Additional comments: right arm swelling > left arm b/l LE swelling, (-) for pitting edema - Neurological Exam Neurological Exam: Alert, Awake, Oriented x3 - Psychiatric Exam Psychiatric exam: Normal Affect, Normal Mood - Skin Skin Exam: Dry, Intact, Normal Color, Warm Assessment and Plan - Assessment and Plan (Free Text) Assessment: (1) Chronic diarrhea 2/2 10 cm Sigmoid Mass 11/20: Dr Benji Jon will do cystoscopy tomorrow as surgery believes a cystoscopy could aid in surgical planning, surgery concerned about air in bladder and the way the mass abuts the bladder as seen on CT. Patient will be npo after midnight. 11/20: s/p upper EUS: "LA grade C erosive esophagitis. 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 75mm x 65mm psedocyst seen in pancreatic body, fine needle aspiration for fluid performed. Varices were visualized endosonographically in fundus of stomach". 11/20: s/p venous duplex of upper extremities: "right: acute thrombosis of right subclavian, axillary and brachial veins with severe reduction of venous return. left: acute thrombosis of left cephatlic vein with severe reduction of venous return". Therapeutic lovenox started -> 90mg q12 sc. 11/20: s/p venous duplex of lower extremeties: negative 11/20: PICC line placed today. Magnesium was low, repleted. 11/19: GI to perform EUS tomorrow. Advanced diet to liquid - will advance as tolerated. B/l upper and lower extremity duplex scans were ordered today. 11/18: Patient is s/p EGD/Colonoscopy. A 10cm partially obstructing sigmoid mass was seen and biopsied. Multiple polyps were seen and resected. Heme/Onc, Dr Garcia has been consulted, we will follow up with his recommendations. 11/17: Still having the diarrhea. The C diff studies are pending. He will need to be on IV Flagyl. 11/16: Pending CT of abd / pelvis results. The appears to be a possible pancreatic area mass as well as colonic mass. The night team has already ordered tumor markers as well as stool studies. Abx were also ordered and the WBC decreased. CT chest abdomen and pelvis findings as noted: suspected sigmoid and proximal rectum mass lesion without evidence of high grade bowel obstruction; suspected abscess formation; cystic mass lesion noted at pancreas with surrounding fat stranding of the pancreatic tail; large gallstones without evidence of acute cholecystitis GI consult (Dr. Srivastava)---> Help appreciated General Surgery Consult (Dr. Amin)----> Help appreciated Urology Consult ( Dr. Jon)----> Help appreciated * All consulted due to unofficial read of CT Scan of chest/abdomen/pelvis: Intra -abdominal abscess/malignancy and bladder wall thickening * Still pending official radiologist report Potassium chloride/dextrose/sodium cl @ 100ml/hr iv q10 Stool culture negative for salmonella, shigella, campylobacter Stool leukocytes negative Ova and parasites not seen C. diffi toxin AB negative (2) Syncope - possibly secondary to ongoing diarrhea 11/19: Discontinued lowe, started a voiding trial today. 11/17: Feeling better today, continue with the IVF. He is tolerating the the liquid diet 11/16: Continue with the IVF, he reports diarrhea, also the patient reports poor PO intake. He looks dry on exam. He recently had an echo done on 10/[address]. His head CT was negative Also stop the blood pressure medication (3) Gram - negative positive blood cultures 11/19: HIV screen negative, Hep panel negative. Bands 26 today. 11/18: HIV 1&2 antibodies, Hep panel were ordered today. ID has been consulted, Dr Burns, we will follow his recommendations. 11/17: Changed to IV Primaxin 500mg IV Q6 Follow cultures. Currently blood pressure and HR stable. Nonfebrile. Continue with the IVF, monitor lowe outputs (4) Urinary tract infection 11/18: repeat urine culture ordered today as previous urine culture came back contaminated UA: Leukocytes esterase : 2+ WBC: 187 Yeast Budding: (positive) * Fluconazole 100mg IVPB daily (5) Metabolic acidosis, increased anion gap Improving with IVF Secondary to ketosis On admission: 33 After NS 0.9% @ 100mls/hr: 20 (6) Hypertension 11/16: Will hold lisnopril at this time (7) Uncontrolled diabetes mellitus Recent HgbA1C: 9.0 (09/28/16) Accuchecks ISS Levemir 15 units Hold glipizide (8) Ulcerated mucosa of esophagus 11/18: Per endoscopy report -> Ulcerated mucosa in the lower third of the esophagus was seen and biopsied. Patient is on pepcid iv 20mg q12. (9) Cystic mass lesion noted at pancreas with surrounding fat stranding of the pancreatic tail 11/20: Upper EUS performed today: "75mm x 65mm psedocyst seen in pancreatic body , fine needle aspiration for fluid performed 11/18: CT abd/pelvis shows cystic mass lesion at pancreas with fat stranding of pacreatic tail. Lipase level and lipid panel was ordered today. 11/17: CA 19-9 wnl (10) Cholelithiasis 11/18: CT abd/pelvis shows large gallstones without evidence of acute cholecystitis. (11) Prophylactic measure SCD (Contraindicated due to LE edema) Pepcid IV 20mg Q12H <Blanco Rivera - Last Filed: 11/22/16 14:41> Objective - Vital Signs/Intake and Output Vital Signs (last 24 hours): Temp Pulse Resp BP Pulse Ox 98.1 F 106 H 20 117/80 98 11/22/16 07:00 11/22/16 07:00 11/22/16 07:00 11/22/16 07:00 11/22/16 07:00 Intake and Output: 11/22/16 11/22/16 06:59 18:59 Intake Total 920 Output Total 875 Balance 45 - Medications Medications: Current Medications Dextrose (Dextrose 50% Inj) 0 ml IV STAT PRN; Protocol PRN Reason: Hyglycemia Protocol Last Admin: 11/18/16 06:21 Dose: 50 ml Enoxaparin Sodium (Lovenox) 90 mg SC Q12 [facility] Last Admin: 11/22/16 09:35 Dose: 90 mg Famotidine (Pepcid) 20 mg IVP Q12 [facility] Last Admin: 11/22/16 09:34 Dose: 20 mg Imipenem/Cilastatin Sodium 500 (mg/ Sodium Chloride) 100 mls @ 100 mls/hr IVPB Q6H [facility] Last Admin: 11/22/16 08:04 Dose: 100 mls/hr Metronidazole (Flagyl) 500 mg in 100 mls @ 100 mls/hr IVPB Q8H [facility] Last Admin: 11/22/16 13:02 Dose: 100 mls/hr Fluconazole (Diflucan Iv 100 Mg/50 Ml Ns) 50 mls @ 100 mls/hr IVPB DAILY [facility] Last Admin: 11/22/16 09:33 Dose: 100 mls/hr Lactated Ringer's (Lactated Ringer's) 1,000 mls @ 100 mls/hr IV .Q10H [facility] Insulin Aspart (Novolog) 0 unit SC ACHS [facility] PRN Reason: Protocol Last Admin: 11/22/16 12:36 Dose: 8 unit Insulin Detemir (Levemir) 15 unit SC DAILY [facility] Last Admin: 11/22/16 09:35 Dose: 15 unit Ondansetron HCl (Zofran Inj) 4 mg IVP Q6H PRN PRN Reason: Nausea/Vomiting Polyethylene Glycol/Electrolytes (Golytely) 4,000 ml PO ONCE ONE Stop: 11/25/16 10:01 - Labs Labs: 11/22/16 07:16 11/22/16 07:16 PT 19.3 SECONDS (9.7-12.2) H 11/20/16 07:44 INR 1.7 11/20/16 07:44 APTT 19 SECONDS (21-34) L 11/15/16 22:04 Attending/Attestation - Attestation I have personally seen and examined this patient.: Yes I have fully participated in the care of the patient.: Yes I have reviewed all pertinent clinical information, including history, physical exam and plan: Yes Notes (Text): 11/22/16 14:41 Patient was seen and examined at bedside with the resident Plan is for cystoscopy by Dr. Jon Continue current medical management I discussed the plan of care with the resident and agree with the history and physical and assessment/plan by the resident.
[2016-11-20] MEDS: Enoxaparin 100 mg Syringe SC SCH (21:26)
--- NOTE | 2016-11-20 22:11 | CP.PCM.PN ---
Subjective - Date & Time of Evaluation Date of Evaluation: 11/20/16 Time of Evaluation: 07:15 - Subjective Subjective: Patient seen and examined at bedside. Patient reports some abdominal pain along LLQ. Patient scheduled for EUS and FNA of pancreas cyst today. Patient voiding. Denies chest pain/SOB, n/v. Objective - Vital Signs/Intake and Output Vital Signs (last 24 hours): Temp Pulse Resp BP Pulse Ox 97.3 F L 92 H 20 132/84 100 11/20/16 15:51 11/20/16 15:51 11/20/16 15:51 11/20/16 15:51 11/20/16 15:51 Intake and Output: 11/20/16 11/21/16 18:59 06:59 Intake Total 1050 Balance 1050 - Medications Medications: Current Medications Dextrose (Dextrose 50% Inj) 0 ml IV STAT PRN; Protocol PRN Reason: Hyglycemia Protocol Last Admin: 11/18/16 06:21 Dose: 50 ml Enoxaparin Sodium (Lovenox) 90 mg SC Q12 [facility] Last Admin: 11/20/16 21:26 Dose: 90 mg Famotidine (Pepcid) 20 mg IVP Q12 [facility] Last Admin: 11/20/16 21:26 Dose: 20 mg Potassium Chloride 20 meq/ (Sodium Chloride) 1,010 mls @ 100 mls/hr IV .Q10H6M [facility] Last Admin: 11/17/16 22:31 Dose: Not Given Imipenem/Cilastatin Sodium 500 (mg/ Sodium Chloride) 100 mls @ 100 mls/hr IVPB Q6H [facility] Last Admin: 11/20/16 21:25 Dose: 100 mls/hr Metronidazole (Flagyl) 500 mg in 100 mls @ 100 mls/hr IVPB Q8H [facility] Last Admin: 11/20/16 17:02 Dose: 100 mls/hr Potassium Chloride/Dextrose/Sod Cl (Potassium Chl 20 Meq In D5-1/2ns) 1,000 mls @ 100 mls/hr IV .Q10H [facility] Last Admin: 11/20/16 17:03 Dose: Not Given Fluconazole (Diflucan Iv 100 Mg/50 Ml Ns) 50 mls @ 100 mls/hr IVPB DAILY [facility] Last Admin: 11/20/16 09:06 Dose: 100 mls/hr Insulin Aspart (Novolog) 0 unit SC ACHS [facility] PRN Reason: Protocol Last Admin: 11/20/16 21:30 Dose: Not Given Insulin Detemir (Levemir) 15 unit SC DAILY [facility] Last Admin: 11/20/16 09:07 Dose: Not Given Ondansetron HCl (Zofran Inj) 4 mg IVP Q6H PRN PRN Reason: Nausea/Vomiting - Labs Labs: 11/20/16 06:43 11/20/16 06:43 PT 19.3 SECONDS (9.7-12.2) H 11/20/16 07:44 INR 1.7 11/20/16 07:44 APTT 19 SECONDS (21-34) L 11/15/16 22:04 - Eye Exam Eye Exam: EOMI - ENT Exam ENT Exam: Mucous Membranes Moist - Respiratory Exam Respiratory Exam: NORMAL BREATHING PATTERN - Cardiovascular Exam Cardiovascular Exam: +S1, +S2 - GI/Abdominal Exam GI & Abdominal Exam: absent: Firm, Guarding, Rigid - Neurological Exam Neurological Exam: Alert, Awake - Psychiatric Exam Psychiatric exam: Normal Mood Assessment and Plan - Assessment and Plan (Free Text) Assessment: 66 M w/ sigmoid mass s/p colonoscopy w/ biopsy of rectosigmoid mass demonstrating invasive adenocarcinoma and proximal transverse polyp showing tubulous villous adenoma. Presence of pancreatic cyst Plan: -F/u AM labs -Patient to go for FNA of pancreatic cyst today as per GI team -Patient to undergo cystoscopy tomorrow AM to investigate if there is any urinary bladder invasion -IV abx -IVFs -analgesic/anti-emetic, -GI prophylaxis Rodolfo Whitaker PGY-2 D/w Dr. Amin
[2016-11-21] MEDS: Potassium Ch 20mEq in D5-1/2NS 1,000 ML IV SCH ×2 (01:27→15:57)
[2016-11-21] MEDS: metroNIDAZOLE IV 500 mg/100 ml 500 MG/100 ML BAG IVPB SCH ×3 (01:29→17:28)
--- NOTE | 2016-11-21 06:57 | CP.PCM.PN ---
<Dorys Best - Last Filed: 11/21/16 08:24> Subjective - Date & Time of Evaluation Date of Evaluation: 11/21/16 Time of Evaluation: 06:47 - Subjective Subjective: Gastroenterology Fellow/PGY5 Progress Note Patient notes epigastric pain immediately post-EUS with pancreatic cyst FNA that has since resolved. No bowel movement yesterday. NPO for cystoscopy today. A 12-point review of systems negative except for as above. Objective - Vital Signs/Intake and Output Vital Signs (last 24 hours): Temp Pulse Resp BP Pulse Ox 97.8 F 80 20 108/72 96 11/20/16 23:40 11/21/16 04:04 11/20/16 23:40 11/20/16 23:40 11/20/16 23:40 Intake and Output: 11/20/16 11/21/16 18:59 06:59 Intake Total 1050 1170 Output Total 100 Balance 1050 1070 - Medications Medications: Current Medications Dextrose (Dextrose 50% Inj) 0 ml IV STAT PRN; Protocol PRN Reason: Hyglycemia Protocol Last Admin: 11/18/16 06:21 Dose: 50 ml Enoxaparin Sodium (Lovenox) 90 mg SC Q12 [facility] Last Admin: 11/20/16 21:26 Dose: 90 mg Famotidine (Pepcid) 20 mg IVP Q12 [facility] Last Admin: 11/20/16 21:26 Dose: 20 mg Potassium Chloride 20 meq/ (Sodium Chloride) 1,010 mls @ 100 mls/hr IV .Q10H6M [facility] Last Admin: 11/17/16 22:31 Dose: Not Given Imipenem/Cilastatin Sodium 500 (mg/ Sodium Chloride) 100 mls @ 100 mls/hr IVPB Q6H [facility] Last Admin: 11/21/16 02:55 Dose: 100 mls/hr Metronidazole (Flagyl) 500 mg in 100 mls @ 100 mls/hr IVPB Q8H [facility] Last Admin: 11/21/16 01:29 Dose: 100 mls/hr Potassium Chloride/Dextrose/Sod Cl (Potassium Chl 20 Meq In D5-1/2ns) 1,000 mls @ 100 mls/hr IV .Q10H [facility] Last Admin: 11/21/16 01:27 Dose: 100 mls/hr Fluconazole (Diflucan Iv 100 Mg/50 Ml Ns) 50 mls @ 100 mls/hr IVPB DAILY [facility] Last Admin: 11/20/16 09:06 Dose: 100 mls/hr Insulin Aspart (Novolog) 0 unit SC ACHS [facility] PRN Reason: Protocol Last Admin: 11/20/16 21:30 Dose: Not Given Insulin Detemir (Levemir) 15 unit SC DAILY [facility] Last Admin: 11/20/16 09:07 Dose: Not Given Ondansetron HCl (Zofran Inj) 4 mg IVP Q6H PRN PRN Reason: Nausea/Vomiting - Labs Labs: 11/20/16 06:43 11/20/16 06:43 PT 19.3 SECONDS (9.7-12.2) H 11/20/16 07:44 INR 1.7 11/20/16 07:44 APTT 19 SECONDS (21-34) L 11/15/16 22:04 - Constitutional Appears: Non-toxic, No Acute Distress - Head Exam Head Exam: ATRAUMATIC, NORMOCEPHALIC - Eye Exam Eye Exam: EOMI, PERRL Pupil Exam: PERRL. absent: Miosis, Mydriatic - ENT Exam ENT Exam: Mucous Membranes Moist, Normal Oropharynx - Neck Exam Neck Exam: Full ROM, Normal Inspection - Respiratory Exam Respiratory Exam: Clear to Ausculation Bilateral. absent: Rales, Rhonchi, Wheezes - Cardiovascular Exam Cardiovascular Exam: RRR, +S1, +S2. absent: Gallop, Rubs - GI/Abdominal Exam GI & Abdominal Exam: Soft, Normal Bowel Sounds. absent: Distended, Firm, Guarding, Rigid, Tenderness, Organomegaly, Rebound - Extremities Exam Additional comments: 1-2+ B/L LE pitting edema, RUE edema - Neurological Exam Neurological Exam: Alert, Awake - Psychiatric Exam Psychiatric exam: Normal Affect, Normal Mood - Skin Skin Exam: Dry, Intact, Normal Color, Warm Assessment and Plan - Assessment and Plan (Free Text) Assessment: 66 year old male with history of Hypertension and Diabetes presenting with fall and weakness. Active treatment of sepsis 2/2 Ecoli Bacteremia/yeast UTI, bilateral upper extremity DVTs on full dose Lovenox, and CT C/A/P IV contrast showing sigmoid/proximal rectum mass with adjacent 9.7x7.5cm abscess and mesenteric lymphadenopathy, 8x5.2cm right lower abdomen abscess, and pancreatic body 11.8x6.2cm pseudocyst. POD3 (11/18) EGD- lower third ulcerated esophagus with focal erosion, Gastritis and colonoscopy showing 10cm partially obstructive sigmoid invasive adenocarcinoma, proximal transverse tubulovillous adenomas. No EGD or colonoscopy prior to admission. Plan: >POD1 (11/20)EUS -10cc FNA of [id number] pancreatic body pseudocyst with internal debris, pending CEA, amylase - LAGC esophagitis, erosive Gastritis -lower 1/3 small esophageal varices, Type 2 esophageal varices extending to fundus (GOV2) - small duodenal bulb varices >on antibiotics for Bacteremia, continue as well for infectious prophylaxis post - FNA >NPO for cystoscopy today to assess for bladder invasion >surgery managing- follow up recommendation >Hem/Onc managing- follow up recommendations >supportive care: pain control, nutritional support, anti-emetics, >will follow clinical course <Constantine Srivastava - Last Filed: 11/21/16 11:08> Objective - Vital Signs/Intake and Output Vital Signs (last 24 hours): Temp Pulse Resp BP Pulse Ox 97.0 F L 90 20 109/73 97 11/21/16 08:29 11/21/16 08:45 11/21/16 08:29 11/21/16 08:29 11/21/16 08:29 Intake and Output: 11/21/16 11/21/16 06:59 18:59 Intake Total 1970 Output Total 100 Balance 1870 - Medications Medications: Current Medications Dextrose (Dextrose 50% Inj) 0 ml IV STAT PRN; Protocol PRN Reason: Hyglycemia Protocol Last Admin: 11/18/16 06:21 Dose: 50 ml Enoxaparin Sodium (Lovenox) 90 mg SC Q12 [facility] Last Admin: 11/20/16 21:26 Dose: 90 mg Famotidine (Pepcid) 20 mg IVP Q12 [facility] Last Admin: 11/20/16 21:26 Dose: 20 mg Potassium Chloride 20 meq/ (Sodium Chloride) 1,010 mls @ 100 mls/hr IV .Q10H6M [facility] Last Admin: 11/17/16 22:31 Dose: Not Given Imipenem/Cilastatin Sodium 500 (mg/ Sodium Chloride) 100 mls @ 100 mls/hr IVPB Q6H [facility] Last Admin: 11/21/16 08:36 Dose: 100 mls/hr Metronidazole (Flagyl) 500 mg in 100 mls @ 100 mls/hr IVPB Q8H [facility] Last Admin: 11/21/16 01:29 Dose: 100 mls/hr Potassium Chloride/Dextrose/Sod Cl (Potassium Chl 20 Meq In D5-1/2ns) 1,000 mls @ 100 mls/hr IV .Q10H [facility] Last Admin: 11/21/16 01:27 Dose: 100 mls/hr Fluconazole (Diflucan Iv 100 Mg/50 Ml Ns) 50 mls @ 100 mls/hr IVPB DAILY [facility] Last Admin: 11/20/16 09:06 Dose: 100 mls/hr Insulin Aspart (Novolog) 0 unit SC ACHS [facility] PRN Reason: Protocol Last Admin: 11/21/16 08:25 Dose: 4 unit Insulin Detemir (Levemir) 15 unit SC DAILY [facility] Last Admin: 11/20/16 09:07 Dose: Not Given Ondansetron HCl (Zofran Inj) 4 mg IVP Q6H PRN PRN Reason: Nausea/Vomiting - Labs Labs: 11/20/16 06:43 11/20/16 06:43 PT 19.3 SECONDS (9.7-12.2) H 11/20/16 07:44 INR 1.7 11/20/16 07:44 APTT 19 SECONDS (21-34) L 11/15/16 22:04 Attending/Attestation - Attestation I have personally seen and examined this patient.: Yes I have fully participated in the care of the patient.: Yes I have reviewed all pertinent clinical information, including history, physical exam and plan: Yes Notes (Text): 11/21/16 11:03 I have seen and examined patient with GI fellow. No acute events overnight, he is seen resting in bed comfortably. He denies abdominal pain, nausea, vomiting , fever/chills. He is hungry and asking for diet to be advanced. HTN / DM Sepsis, UTI Pancreatic cystic lesion s/p EUS/FNA yesterday Bilateral upper extremity DVT on lovenox Recently diagnosed sigmoid lesion consistent with adenocarcinoma on biopsy results, associated dangelo-colonic abscess - Patient to undergo cystoscopy today for concern of potential bladder tumor invasion - Continue with antibiotic therapy - Follow up results of FNA of pancreatic cyst - cytology and CEA levels - Obtain abdominal US with duplex to rule out SV thrombosis given presence of gastroesopahgeal varices seen on endoscopic examination - Follow up oncology recommendations - Follow up surgical recommendations regarding potential intervention - No further planned GI intervention, will sign off case. Patient will require additional outpatient follow up. Please reconsult as necessary, thank you.
[2016-11-21] MEDS: (Novolog) Insulin Aspart, Recombinant 100 u/ml 10 ml vial SC SCH ×4 (08:25→21:34)
--- NOTE | 2016-11-21 09:39 | CP.PCM.PN ---
Subjective - Date & Time of Evaluation Date of Evaluation: 11/21/16 Time of Evaluation: 08:35 - Subjective Subjective: Patient seen and examined this morning, patient in good spirits. No acute changes over night. Patient to go for cystoscopy Objective - Vital Signs/Intake and Output Vital Signs (last 24 hours): Temp Pulse Resp BP Pulse Ox 97.0 F L 90 20 109/73 97 11/21/16 08:29 11/21/16 08:45 11/21/16 08:29 11/21/16 08:29 11/21/16 08:29 Intake and Output: 11/21/16 11/21/16 06:59 18:59 Intake Total 1970 Output Total 100 Balance 1870 - Medications Medications: Current Medications Dextrose (Dextrose 50% Inj) 0 ml IV STAT PRN; Protocol PRN Reason: Hyglycemia Protocol Last Admin: 11/18/16 06:21 Dose: 50 ml Enoxaparin Sodium (Lovenox) 90 mg SC Q12 [facility] Last Admin: 11/20/16 21:26 Dose: 90 mg Famotidine (Pepcid) 20 mg IVP Q12 [facility] Last Admin: 11/20/16 21:26 Dose: 20 mg Potassium Chloride 20 meq/ (Sodium Chloride) 1,010 mls @ 100 mls/hr IV .Q10H6M [facility] Last Admin: 11/17/16 22:31 Dose: Not Given Imipenem/Cilastatin Sodium 500 (mg/ Sodium Chloride) 100 mls @ 100 mls/hr IVPB Q6H [facility] Last Admin: 11/21/16 08:36 Dose: 100 mls/hr Metronidazole (Flagyl) 500 mg in 100 mls @ 100 mls/hr IVPB Q8H [facility] Last Admin: 11/21/16 01:29 Dose: 100 mls/hr Potassium Chloride/Dextrose/Sod Cl (Potassium Chl 20 Meq In D5-1/2ns) 1,000 mls @ 100 mls/hr IV .Q10H [facility] Last Admin: 11/21/16 01:27 Dose: 100 mls/hr Fluconazole (Diflucan Iv 100 Mg/50 Ml Ns) 50 mls @ 100 mls/hr IVPB DAILY [facility] Last Admin: 11/20/16 09:06 Dose: 100 mls/hr Insulin Aspart (Novolog) 0 unit SC ACHS [facility] PRN Reason: Protocol Last Admin: 11/21/16 08:25 Dose: 4 unit Insulin Detemir (Levemir) 15 unit SC DAILY [facility] Last Admin: 11/20/16 09:07 Dose: Not Given Ondansetron HCl (Zofran Inj) 4 mg IVP Q6H PRN PRN Reason: Nausea/Vomiting - Labs Labs: 11/20/16 06:43 11/20/16 06:43 PT 19.3 SECONDS (9.7-12.2) H 11/20/16 07:44 INR 1.7 11/20/16 07:44 APTT 19 SECONDS (21-34) L 11/15/16 22:04 - Constitutional Appears: No Acute Distress - Head Exam Head Exam: NORMOCEPHALIC - Eye Exam Eye Exam: Normal appearance - ENT Exam ENT Exam: Mucous Membranes Moist - Respiratory Exam Respiratory Exam: NORMAL BREATHING PATTERN - Cardiovascular Exam Cardiovascular Exam: +S1, +S2 - GI/Abdominal Exam GI & Abdominal Exam: Soft, Tenderness - Neurological Exam Neurological Exam: Alert, Awake, Oriented x3 - Psychiatric Exam Psychiatric exam: Normal Mood - Skin Skin Exam: Normal Color, Warm Assessment and Plan - Assessment and Plan (Free Text) Assessment: 66 M w/ sigmoid mass s/p colonoscopy w/ biopsy of rectosigmoid mass demonstrating invasive adenocarcinoma and proximal transverse polyp showing tubulous villous adenoma. Presence of pancreatic cyst Plan: -F/u AM labs -Patient found to have invasion to dome of urinary bladder -Will plan for surgery some time next week -IV abx -IVFs -analgesic/anti-emetic -DVT/GI prophylaxis Rodolfo Whitaker PGY-2
[2016-11-21] MEDS ORDERED: Lidocaine 1% Inj (20ml) ONE (09:52)
[2016-11-21] MEDS: Insulin Detemir 100 units/ml Vial (Levemir) SC SCH (10:00)
--- NOTE | 2016-11-21 10:39 | PCM.SURG1 ---
Surgeon's Initial Post Op Note - Surgeon's Notes Surgeon: Yaya Armando MD Hha: NONE Type of Anesthesia: Local Pre-Operative Diagnosis: Poor venous access Operative Findings: Patent left basilic vein. Post-Operative Diagnosis: Poor venous access Operation Performed: Single lumen picc placement via the left basilic vein, 45 cm. Tip in the SVC. Specimen/Specimens Removed: None Estimated Blood Loss: EBL {In ML}: 2 Blood Products Given: N/A Drains Used: No Drains Post-Op Condition: Fair Date of Surgery/Procedure: 11/21/16 Time of Surgery/Procedure: 10:35
[2016-11-21] MEDS ORDERED: Iohexol 240 (50 ml) ONE ×2 (11:29→11:41)
[2016-11-21] MEDS ORDERED: cefTRIAXone IV 1 gm in Dextros 0 ML IVPB ONE (11:29)
[2016-11-21] MEDS ORDERED: Gentamicin 80 mg in 0.9% NS 0 MG/0 ML BAG IVPB ONE (11:30)
[2016-11-21] MEDS ORDERED: cefTRIAXone IV 1 gm in Dextros 50 ML IVPB ONE (11:41)
[2016-11-21] MEDS ORDERED: Lidocaine 2% Jelly (Uro-Jet) ONE (11:41)
[2016-11-21] MEDS ORDERED: Midazolam 2 MG/2 ML VIAL ONE (11:42)
[2016-11-21] MEDS ORDERED: Propofol 10 mg/ml Inj (20 ML) ONE (11:42)
[2016-11-21] MEDS ORDERED: Lactated Ringer's 1,000 ML IV ONE (12:00)
[2016-11-21] MEDS ORDERED: HYDROmorphone 0.5 mg/0.5 ml ISec IVP PRN (12:04)
[2016-11-21] MEDS: Enoxaparin 100 mg Syringe SC SCH ×2 (12:10→21:30)
--- NOTE | 2016-11-21 13:08 | US ---
HISTORY: Evaluate for splenic vein thrombosis COMPARISON: None. TECHNIQUE: Sonographic evaluation of the abdomen. FINDINGS: LIVER: Measures 14.1 cm. Hepatopedal blood flow. Fatty infiltration manifest ultrasonographically as increased echogenicity of the liver parenchyma. No mass. No intrahepatic bile duct dilatation. GALLBLADDER: Cholelithiasis. Negative study for gallbladder wall thickening, pericholecystic fluid, sonographic Bedolla's sign. COMMON BILE DUCT: Measures 3.9 mm. No stones. No dilatation. PANCREAS: Cystic mass in the head of the pancreas 5.3 x 11.1 cm. The remainder the pancreas is obscured by overlying bowel gas RIGHT KIDNEY: Measures 6.3 x 10.7cm. Normal echogenicity. No calculus, mass, or hydronephrosis. LEFT KIDNEY: Measures 5.6 x 12.3cm. Normal echogenicity. No calculus, mass, or hydronephrosis. SPLEEN: Normal in size and contour. No mass. Patent splenic vein. The out AORTA: No aneurysmal dilatation. IVC: Unremarkable. OTHER FINDINGS: Trace ascites IMPRESSION: 1. Hepatocellular disease without focal hepatic mass. 2. Patent portal venous system including splenic vein. 3. Cholelithiasis. No sonographic evidence of acute cholecystitis. 4. Cystic mass in the head of the pancreas. Remainder the pancreas is not visualized.
--- NOTE | 2016-11-21 13:26 | RAD ---
PROCEDURE: Retrograde HISTORY: HEMATURIA COMPARISON: None available. TECHNIQUE: Standard protocol for this study/examination. FINDINGS: Total fluoroscopic time (continuous mode) utilized during the procedure: 25.2 seconds IMPRESSION: Unremarkable single view of the abdomen.
--- NOTE | 2016-11-21 13:31 | RAD ---
PROCEDURE: Intraoperative Fluoroscopy. HISTORY: HEMATURIA FINDINGS: Fluoroscopic assistance was provided for retrograde study. Total fluoroscopic time (continuous mode) utilized during the procedure: 25.2 seconds. Please refer to the operative report from
--- NOTE | 2016-11-21 13:58 | RAD ---
PROCEDURE: Date of procedure: 11/21/2016 Procedure: 1. Placement of a left arm PICC with ultrasound and fluoroscopic guidance, CPT 99479 2. PICC tip confirmation with spot radiograph and is in the superior vena cava Medications: 3cc 1 percent lidocaine Total Fluoro time: 1.5 seconds Radiation: 0.28 MGy EBL: 2 cc HISTORY: Infection requiring long-term IV antibiotics TECHNIQUE: Following informed consent and procedure time-out, the patient placed supine on the interventional table and the left arm prepped and draped in the usual sterile fashion. Ultrasound showed a patent and compressible left basilic vein. After the skin was anesthetized with lidocaine, the basilic vein was accessed with micro micropuncture technique using ultrasound guidance. A guidewire was then advanced under fluoroscopic guidance into the superior vena cava. An image documenting ultrasound guidance for vascular access was permanently saved. The length of a single-lumen 4 [place] PICC was trimmed to 45 cm and advanced through a peel-away sheath. The PICC was position with tip of PICC confirm a spot radiograph the superior vena cava. The PICC was secured to the patient's skin. The PICC was flushed. A biopatch and sterile dressing was applied. IMPRESSION: Placement of a single-lumen 4 [place] PICC left basilic vein trimmed to 45 cm. The tip of the PICC is confirmed with spot radiograph and is in the superior vena cava.
--- NOTE | 2016-11-21 14:00 | US ---
Date of procedure: 11/21/2016 Procedure: Ultrasound guidance for vascular access HISTORY: Infection requiring long-term IV antibiotics TECHNIQUE: Following informed consent and procedure time-out, the patient placed supine on the interventional table and the left arm prepped and draped in the usual sterile fashion. Ultrasound showed a patent and compressible basilic vein. After the skin was anesthetized with lidocaine, the basilic vein was accessed with micro micropuncture technique using ultrasound guidance. An image documenting ultrasound guidance for vascular access was permanently saved. IMPRESSION: Ultrasound guidance for vascular access for placement of PICC.
[2016-11-21] MEDS: Fluconazole IV 100mg/50 ml NS 50 ML IVPB SCH (14:33)
--- NOTE | 2016-11-21 18:38 | CP.PCM.PN ---
Subjective - Date & Time of Evaluation Date of Evaluation: 11/21/16 Time of Evaluation: 15:00 - Subjective Subjective: Has abdominal pain Objective - Vital Signs/Intake and Output Vital Signs (last 24 hours): Temp Pulse Resp BP Pulse Ox 97.5 F L 114 H 22 135/57 L 99 11/21/16 16:15 11/21/16 16:15 11/21/16 16:15 11/21/16 16:15 11/21/16 16:15 Intake and Output: 11/21/16 11/21/16 06:59 18:59 Intake Total 1970 750 Output Total 100 125 Balance 1870 625 - Medications Medications: Current Medications Dextrose (Dextrose 50% Inj) 0 ml IV STAT PRN; Protocol PRN Reason: Hyglycemia Protocol Last Admin: 11/18/16 06:21 Dose: 50 ml Enoxaparin Sodium (Lovenox) 90 mg SC Q12 [facility] Last Admin: 11/21/16 12:10 Dose: Not Given Famotidine (Pepcid) 20 mg IVP Q12 [facility] Last Admin: 11/21/16 10:00 Dose: Not Given Potassium Chloride 20 meq/ (Sodium Chloride) 1,010 mls @ 100 mls/hr IV .Q10H6M [facility] Last Admin: 11/17/16 22:31 Dose: Not Given Imipenem/Cilastatin Sodium 500 (mg/ Sodium Chloride) 100 mls @ 100 mls/hr IVPB Q6H [facility] Last Admin: 11/21/16 14:33 Dose: 100 mls/hr Metronidazole (Flagyl) 500 mg in 100 mls @ 100 mls/hr IVPB Q8H [facility] Last Admin: 11/21/16 17:28 Dose: 100 mls/hr Fluconazole (Diflucan Iv 100 Mg/50 Ml Ns) 50 mls @ 100 mls/hr IVPB DAILY [facility] Last Admin: 11/21/16 14:33 Dose: 100 mls/hr Insulin Aspart (Novolog) 0 unit SC ACHS [facility] PRN Reason: Protocol Last Admin: 11/21/16 18:29 Dose: Not Given Insulin Detemir (Levemir) 15 unit SC DAILY [facility] Last Admin: 11/21/16 10:00 Dose: Not Given Ondansetron HCl (Zofran Inj) 4 mg IVP Q6H PRN PRN Reason: Nausea/Vomiting - Labs Labs: 11/20/16 06:43 11/20/16 06:43 PT 19.3 SECONDS (9.7-12.2) H 11/20/16 07:44 INR 1.7 11/20/16 07:44 APTT 19 SECONDS (21-34) L 11/15/16 22:04 - Head Exam Head Exam: ATRAUMATIC - Eye Exam Eye Exam: Normal appearance - ENT Exam ENT Exam: Mucous Membranes Dry - Respiratory Exam Respiratory Exam: NORMAL BREATHING PATTERN - Cardiovascular Exam Cardiovascular Exam: +S1, +S2 - GI/Abdominal Exam GI & Abdominal Exam: Normal Bowel Sounds - Extremities Exam Extremities Exam: Normal Inspection Assessment and Plan (1) Colon cancer Assessment & Plan: concern for bladder involvement for cystoscopy Status: Acute (2) Anemia Assessment & Plan: chronic disease normal iron stores Status: Acute (3) Thrombocytopenia Assessment & Plan: mild no intervention Status: Acute (4) Leucocytosis Assessment & Plan: on antibiotics Status: Acute (5) Pancreatic lesion Assessment & Plan: s/p EUS and biopsy f/u path Status: Acute
--- NOTE | 2016-11-21 18:44 | CP.PCM.PN ---
<AugustusJose dougherty R - Last Filed: 11/21/16 18:41> Subjective - Date & Time of Evaluation Date of Evaluation: 11/21/16 Time of Evaluation: 15:00 - Subjective Subjective: Patient was S and E at bedside. Patient's son was with him at bedside. Patient was post-op from cystoscopy earlier in the day. He said he was doing well considering the numerous procedures he's had in the past few days. He denied being in any pain. He admits to pain in his lower left quadrant. He has been able to both void on his own and have a normal BM this morning without any issues. He admits to fatigue. He denied cp, sob, f/c, n/v/d/c, bleeding. Objective - Vital Signs/Intake and Output Vital Signs (last 24 hours): Temp Pulse Resp BP Pulse Ox 97.5 F L 114 H 22 135/57 L 99 11/21/16 16:15 11/21/16 16:15 11/21/16 16:15 11/21/16 16:15 11/21/16 16:15 Intake and Output: 11/21/16 11/21/16 06:59 18:59 Intake Total 1970 750 Output Total 100 125 Balance 1870 625 - Medications Medications: Current Medications Dextrose (Dextrose 50% Inj) 0 ml IV STAT PRN; Protocol PRN Reason: Hyglycemia Protocol Last Admin: 11/18/16 06:21 Dose: 50 ml Enoxaparin Sodium (Lovenox) 90 mg SC Q12 [facility] Last Admin: 11/21/16 12:10 Dose: Not Given Famotidine (Pepcid) 20 mg IVP Q12 [facility] Last Admin: 11/21/16 10:00 Dose: Not Given Potassium Chloride 20 meq/ (Sodium Chloride) 1,010 mls @ 100 mls/hr IV .Q10H6M [facility] Last Admin: 11/17/16 22:31 Dose: Not Given Imipenem/Cilastatin Sodium 500 (mg/ Sodium Chloride) 100 mls @ 100 mls/hr IVPB Q6H [facility] Last Admin: 11/21/16 14:33 Dose: 100 mls/hr Metronidazole (Flagyl) 500 mg in 100 mls @ 100 mls/hr IVPB Q8H [facility] Last Admin: 11/21/16 17:28 Dose: 100 mls/hr Fluconazole (Diflucan Iv 100 Mg/50 Ml Ns) 50 mls @ 100 mls/hr IVPB DAILY [facility] Last Admin: 11/21/16 14:33 Dose: 100 mls/hr Insulin Aspart (Novolog) 0 unit SC ACHS [facility] PRN Reason: Protocol Last Admin: 11/21/16 18:29 Dose: Not Given Insulin Detemir (Levemir) 15 unit SC DAILY [facility] Last Admin: 11/21/16 10:00 Dose: Not Given Ondansetron HCl (Zofran Inj) 4 mg IVP Q6H PRN PRN Reason: Nausea/Vomiting - Labs Labs: 11/20/16 06:43 11/20/16 06:43 PT 19.3 SECONDS (9.7-12.2) H 11/20/16 07:44 INR 1.7 11/20/16 07:44 APTT 19 SECONDS (21-34) L 11/15/16 22:04 - Constitutional Appears: No Acute Distress - Head Exam Head Exam: NORMAL INSPECTION - Eye Exam Eye Exam: Normal appearance - ENT Exam ENT Exam: Mucous Membranes Moist - Neck Exam Neck Exam: Normal Inspection - Respiratory Exam Respiratory Exam: Clear to Ausculation Bilateral, NORMAL BREATHING PATTERN - Cardiovascular Exam Cardiovascular Exam: REGULAR RHYTHM, RRR, +S1, +S2, Murmur Additional comments: (+) murmur heard overlying the right ICS - GI/Abdominal Exam GI & Abdominal Exam: Soft, Tenderness, Hyperactive Bowel Sounds Additional comments: (+) TTP overlying the suprapubic region with slightly hardened mass felt, approx. 3-5 cm in diameter. - Rectal Exam Rectal Exam: Deferred - Extremities Exam Additional comments: (+) Bilateral UE edema, R>L. Pitting noted up to elbow. (+) B/l LE edema, pitting 2+, up to mid calf. Distal pulses are present, but diminished. Slow cap refill approx 5 sec. - Neurological Exam Neurological Exam: Alert, Awake - Psychiatric Exam Psychiatric exam: Normal Affect - Skin Skin Exam: Dry, Intact, Normal Color, Warm Assessment and Plan - Assessment and Plan (Free Text) Assessment: (1) Chronic diarrhea 2/2 10 cm Sigmoid Mass 11/21: Pt s/p cystoscopy today. Patient found to have invasion to dome of urinary bladder. Surgery to plan for surgery some time next week 11/21: GI has signed off. 11/21: Per GI, Abdominal U/S obtained to rule out SV thrombosis given presence of gastroesopahgeal varices seen on endoscopic examination -> Abdominal U/S: 1. Hepatocellular disease without focal hepatic mass. 2. Patent portal venous system including splenic vein. 3. Cholelithiasis. No sonographic evidence of acute cholecystitis. 4. Cystic mass in the head of the pancreas. Remainder the pancreas is not visualized. 11/21: PICC placed today by IR DR Armando. 11/20: Dr Benji Jon will do cystoscopy tomorrow as surgery believes a cystoscopy could aid in surgical planning, surgery concerned about air in bladder and the way the mass abuts the bladder as seen on CT. Patient will be npo after midnight. 11/20: s/p upper EUS: "LA grade C erosive esophagitis. 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 75mm x 65mm psedocyst seen in pancreatic body, fine needle aspiration for fluid performed. Varices were visualized endosonographically in fundus of stomach". Will f/u cystology and CEA levels. 11/20: s/p venous duplex of upper extremities: "right: acute thrombosis of right subclavian, axillary and brachial veins with severe reduction of venous return. left: acute thrombosis of left cephatlic vein with severe reduction of venous return". Therapeutic lovenox started -> 90mg q12 sc. 11/20: s/p venous duplex of lower extremeties: negative 11/20: PICC line placed today. Magnesium was low, repleted. 11/19: GI to perform EUS tomorrow. Advanced diet to liquid - will advance as tolerated. B/l upper and lower extremity duplex scans were ordered today. 11/18: Patient is s/p EGD/Colonoscopy. A 10cm partially obstructing sigmoid mass was seen and biopsied. Multiple polyps were seen and resected. Heme/Onc, Dr Garcia has been consulted, we will follow up with his recommendations. 11/17: Still having the diarrhea. The C diff studies are pending. He will need to be on IV Flagyl. 11/16: Pending CT of abd / pelvis results. The appears to be a possible pancreatic area mass as well as colonic mass. The night team has already ordered tumor markers as well as stool studies. Abx were also ordered and the WBC decreased. CT chest abdomen and pelvis findings as noted: suspected sigmoid and proximal rectum mass lesion without evidence of high grade bowel obstruction; suspected abscess formation; cystic mass lesion noted at pancreas with surrounding fat stranding of the pancreatic tail; large gallstones without evidence of acute cholecystitis GI consult (Dr. Srivastava)---> Help appreciated General Surgery Consult (Dr. Amin)----> Help appreciated Urology Consult ( Dr. Jon)----> Help appreciated * All consulted due to unofficial read of CT Scan of chest/abdomen/pelvis: Intra -abdominal abscess/malignancy and bladder wall thickening * Still pending official radiologist report Potassium chloride/dextrose/sodium cl @ 100ml/hr iv q10 Stool culture negative for salmonella, shigella, campylobacter Stool leukocytes negative Ova and parasites not seen C. diffi toxin AB negative (2) Syncope - possibly secondary to ongoing diarrhea 11/19: Discontinued lowe, started a voiding trial today. 11/17: Feeling better today, continue with the IVF. He is tolerating the the liquid diet 11/16: Continue with the IVF, he reports diarrhea, also the patient reports poor PO intake. He looks dry on exam. He recently had an echo done on 10/[address] His head CT was negative Also stop the blood pressure medication (3) Gram - negative positive blood cultures 11/19: HIV screen negative, Hep panel negative. Bands 26 today. 11/18: HIV 1&2 antibodies, Hep panel were ordered today. ID has been consulted, Dr Burns, we will follow his recommendations. 11/17: Changed to IV Primaxin 500mg IV Q6 Follow cultures. Currently blood pressure and HR stable. Nonfebrile. Continue with the IVF, monitor lowe outputs (4) Urinary tract infection 11/18: repeat urine culture ordered today as previous urine culture came back contaminated UA: Leukocytes esterase : 2+ WBC: 187 Yeast Budding: (positive) * Fluconazole 100mg IVPB daily (5) Metabolic acidosis, increased anion gap Improving with IVF Secondary to ketosis On admission: 33 After NS 0.9% @ 100mls/hr: 20 (6) Hypertension 11/16: Will hold lisnopril at this time (7) Uncontrolled diabetes mellitus Recent HgbA1C: 9.0 (09/28/16) Accuchecks ISS Levemir 15 units Hold glipizide (8) Ulcerated mucosa of esophagus 11/18: Per endoscopy report -> Ulcerated mucosa in the lower third of the esophagus was seen and biopsied. Patient is on pepcid iv 20mg q12. (9) Cystic mass lesion noted at pancreas with surrounding fat stranding of the pancreatic tail 11/20: Upper EUS performed today: "75mm x 65mm psedocyst seen in pancreatic body , fine needle aspiration for fluid performed 11/18: CT abd/pelvis shows cystic mass lesion at pancreas with fat stranding of pacreatic tail. Lipase level and lipid panel was ordered today. 11/17: CA 19-9 wnl (10) Cholelithiasis 11/18: CT abd/pelvis shows large gallstones without evidence of acute cholecystitis. (11) Prophylactic measure SCD (Contraindicated due to LE edema) Pepcid IV 20mg Q12H <Blanco Rivera M - Last Filed: 11/22/16 17:44> Objective - Vital Signs/Intake and Output Vital Signs (last 24 hours): Temp Pulse Resp BP Pulse Ox 97.8 F 100 H 20 103/69 95 11/22/16 15:20 11/22/16 15:20 11/22/16 15:20 11/22/16 15:20 11/22/16 15:20 Intake and Output: 11/22/16 11/22/16 06:59 18:59 Intake Total 920 800 Output Total 875 550 Balance 45 250 - Medications Medications: Current Medications Dextrose (Dextrose 50% Inj) 0 ml IV STAT PRN; Protocol PRN Reason: Hyglycemia Protocol Last Admin: 11/18/16 06:21 Dose: 50 ml Enoxaparin Sodium (Lovenox) 90 mg SC Q12 [facility] Last Admin: 11/22/16 09:35 Dose: 90 mg Famotidine (Pepcid) 20 mg IVP Q12 [facility] Last Admin: 11/22/16 09:34 Dose: 20 mg Imipenem/Cilastatin Sodium 500 (mg/ Sodium Chloride) 100 mls @ 100 mls/hr IVPB Q6H [facility] Last Admin: 11/22/16 15:23 Dose: 100 mls/hr Metronidazole (Flagyl) 500 mg in 100 mls @ 100 mls/hr IVPB Q8H [facility] Last Admin: 11/22/16 13:02 Dose: 100 mls/hr Fluconazole (Diflucan Iv 100 Mg/50 Ml Ns) 50 mls @ 100 mls/hr IVPB DAILY [facility] Last Admin: 11/22/16 09:33 Dose: 100 mls/hr Lactated Ringer's (Lactated Ringer's) 1,000 mls @ 100 mls/hr IV .Q10H [facility] Insulin Aspart (Novolog) 0 unit SC ACHS [facility] PRN Reason: Protocol Last Admin: 11/22/16 12:36 Dose: 8 unit Insulin Detemir (Levemir) 15 unit SC DAILY [facility] Last Admin: 11/22/16 09:35 Dose: 15 unit Ondansetron HCl (Zofran Inj) 4 mg IVP Q6H PRN PRN Reason: Nausea/Vomiting Polyethylene Glycol/Electrolytes (Golytely) 4,000 ml PO ONCE ONE Stop: 11/25/16 10:01 - Labs Labs: 11/22/16 07:16 11/22/16 07:16 PT 19.3 SECONDS (9.7-12.2) H 11/20/16 07:44 INR 1.7 11/20/16 07:44 APTT 19 SECONDS (21-34) L 11/15/16 22:04 Attending/Attestation - Attestation I have personally seen and examined this patient.: Yes I have fully participated in the care of the patient.: Yes I have reviewed all pertinent clinical information, including history, physical exam and plan: Yes Notes (Text): 11/22/16 17:43 Patient was seen and examined at bedside with the resident Status post cystoscopy today. Plan for surgery next week as per surgical team Monitor platelets closely for thrombocytopenia. Patient is on therapeutic anticoagulation for DVT in the right upper extremity I discussed the plan of care with the resident and I agree with the history and physical and assessment/plan but the resident.
[2016-11-22] MEDS: Potassium Ch 20mEq in D5-1/2NS 1,000 ML IV SCH (00:44)
[2016-11-22] MEDS: metroNIDAZOLE IV 500 mg/100 ml 500 MG/100 ML BAG IVPB SCH ×3 (01:28→18:09)
[2016-11-22 07:32] LABS: BASO % 0.1 % (0.0-2.0); EOS % 0.1 % (0.0-4.0); HEMATOCRIT 30.3 % (35.0-51.0); LYMPH # 1.2 K/uL (1.0-4.3); LYMPH % 13.8 % (20.0-40.0); MEAN CELL VOLUME 68.3 fL (80.0-94.0); MEAN CORPUSCULAR HEMOGLOBIN 21.6 pg (27.0-31.0); MEAN CORPUSCULAR HGB CONC 31.6 g/dL (33.0-37.0); MEAN PLATELET VOLUME 9.1 fL (7.2-11.7); MONO # 0.9 K/uL (0.0-0.8); MONO % 9.9 % (0.0-10.0); RED CELL DISTRIBUTION WIDTH 21.5 % (11.5-14.5); WHITE BLOOD COUNT 8.6 K/uL (4.8-10.8)
[2016-11-22] MEDS: (Novolog) Insulin Aspart, Recombinant 100 u/ml 10 ml vial SC SCH ×4 (08:05→21:40)
[2016-11-22 08:07] LABS: CHLORIDE 100 mmol/L (98-107)
[2016-11-22 08:08] LABS: POTASSIUM 4.4 mmol/L (3.6-5.2); SODIUM 131 mmol/L (132-148)
[2016-11-22 08:10] LABS: ALB/GLOB RATIO 0.6 (1.0-2.1); BILIRUBIN,TOTAL 0.6 mg/dL (0.2-1.3); CARBON DIOXIDE 22 mmol/L (22-30); GFR AFRICAN-AMERICAN > 60; TOTAL PROTEIN 4.7 g/dL (6.3-8.3)
[2016-11-22 08:11] LABS: ALKALINE PHOSPHATASE 106 U/L (38-126); ALT/SGPT 35 U/L (21-72); AST/SGOT 11 U/L (17-59); BLOOD UREA NITROGEN 10 mg/dL (9-20); CALCIUM 6.6 mg/dl (8.6-10.4); GLUCOSE,RANDOM 302 mg/dL (75-110); MAGNESIUM 1.5 mg/dL (1.6-2.3); PHOSPHOROUS 3.1 mg/dL (2.5-4.5)
--- NOTE | 2016-11-22 08:30 | PCM.URO ---
Urology Progress Note - Objective Lab Results Last 24 Hours: Laboratory Results - last 24 hr 11/21/16 11/21/16 11/22/16 16:30 21:00 06:15 WBC RBC Hgb Hct MCV MCH MCHC RDW Plt Count MPV Neut % (Auto) Lymph % (Auto) Emery % (Auto) Eos % (Auto) Baso % (Auto) Neut # Lymph # Emery # Eos # Baso # Sodium Potassium Chloride Carbon Dioxide Anion Gap BUN Creatinine Est GFR ( Amer) Est GFR (Non-Af Amer) POC Glucose (mg/dL) 233 H 290 H 337 H Random Glucose Calcium Phosphorus Magnesium Total Bilirubin AST ALT Alkaline Phosphatase Total Protein Albumin Globulin Albumin/Globulin Ratio 11/22/16 11/22/16 07:16 07:16 WBC 8.6 RBC 4.43 Hgb 9.6 L Hct 30.3 L MCV 68.3 L MCH 21.6 L MCHC 31.6 L RDW 21.5 H Plt Count 130 MPV 9.1 Neut % (Auto) 76.1 H Lymph % (Auto) 13.8 L Emery % (Auto) 9.9 Eos % (Auto) 0.1 Baso % (Auto) 0.1 Neut # 6.6 Lymph # 1.2 Emery # 0.9 H Eos # 0.0 Baso # 0.0 Sodium 131 L Potassium 4.4 Chloride 100 Carbon Dioxide 22 Anion Gap 14 BUN 10 Creatinine 0.6 L Est GFR ( Amer) > 60 Est GFR (Non-Af Amer) > 60 POC Glucose (mg/dL) Random Glucose 302 H Calcium 6.6 L Phosphorus 3.1 Magnesium 1.5 L Total Bilirubin 0.6 AST 11 L ALT 35 Alkaline Phosphatase 106 Total Protein 4.7 L Albumin 1.7 L Globulin 3.0 Albumin/Globulin Ratio 0.6 L Intake & Output: Intake & Output 11/21/16 11/22/16 11/22/16 18:59 06:59 18:59 Intake Total 750 920 Output Total 125 875 Balance 625 45 Intake: IV 150 Intake, IV Amount 600 800 Left Antecubital 600 800 Oral 120 Output: Urine 100 875 Urine, Voided 875 Stool 25 Other: # Voids Urine, Voided 0 # Bowel Movements 0 Vital Signs: Vital Signs - 24 hr 11/21/16 11/21/16 11/21/16 08:45 12:45 13:00 Temperature 97.6 F Pulse Rate 90 109 H 112 H Respiratory 23 20 Rate Blood Pressure 163/112 H 125/83 O2 Sat by Pulse 98 98 Oximetry 11/21/16 11/21/16 11/21/16 13:15 13:30 13:45 Temperature 97.8 F Pulse Rate 110 H 112 H 114 H Respiratory 18 20 16 Rate Blood Pressure 132/93 H 142/83 152/92 H O2 Sat by Pulse 96 98 96 Oximetry 11/21/16 11/21/16 11/21/16 14:15 15:25 16:15 Temperature 97.3 F L 97.5 F L Pulse Rate 111 H 113 H 114 H Respiratory 20 22 Rate Blood Pressure 138/99 H 135/57 L O2 Sat by Pulse 98 99 Oximetry 11/21/16 11/22/16 11/22/16 23:45 00:06 04:05 Temperature 97.6 F 97.8 F Pulse Rate 107 H 110 H 105 H Respiratory 20 20 Rate Blood Pressure 116/64 115/73 O2 Sat by Pulse 96 96 Oximetry 11/22/16 11/22/16 04:13 07:00 Temperature 98.1 F Pulse Rate 103 H 106 H Respiratory 20 Rate Blood Pressure 117/80 O2 Sat by Pulse 98 Oximetry - Physical Exam Abdominal Exam: Soft (pt for or sunday 11/26)
[2016-11-22] MEDS: Fluconazole IV 100mg/50 ml NS 50 ML IVPB SCH (09:33)
[2016-11-22] MEDS: Enoxaparin 100 mg Syringe SC SCH ×2 (09:35→21:30)
[2016-11-22] MEDS: Insulin Detemir 100 units/ml Vial (Levemir) SC SCH (09:35)
[2016-11-22] MEDS ORDERED: Phytonadione 10 mg/ml Inj (Adult) SC STA (10:27)
[2016-11-22] MEDS: Magnesium Sulfate 1 gm in D5W 1 GM/100 ML BAG IVPB SCH ×2 (10:31→11:39)
[2016-11-22 11:07] LABS: HEMATOCRIT 29.8 % (38.5-50.0); HEMOGLOBIN 8.9 g/dL (13.2-17.1); RDW 23.8 % (11.0-15.0)
--- NOTE | 2016-11-22 12:42 | CP.PCM.PN ---
Subjective - Date & Time of Evaluation Date of Evaluation: 11/22/16 Time of Evaluation: 07:30 - Subjective Subjective: Patient seen and examined this morning. No complaints. No acute events over night. Objective - Vital Signs/Intake and Output Vital Signs (last 24 hours): Temp Pulse Resp BP Pulse Ox 98.1 F 106 H 20 117/80 98 11/22/16 07:00 11/22/16 07:00 11/22/16 07:00 11/22/16 07:00 11/22/16 07:00 Intake and Output: 11/22/16 11/22/16 06:59 18:59 Intake Total 920 Output Total 875 Balance 45 - Medications Medications: Current Medications Dextrose (Dextrose 50% Inj) 0 ml IV STAT PRN; Protocol PRN Reason: Hyglycemia Protocol Last Admin: 11/18/16 06:21 Dose: 50 ml Enoxaparin Sodium (Lovenox) 90 mg SC Q12 [facility] Last Admin: 11/22/16 09:35 Dose: 90 mg Famotidine (Pepcid) 20 mg IVP Q12 [facility] Last Admin: 11/22/16 09:34 Dose: 20 mg Imipenem/Cilastatin Sodium 500 (mg/ Sodium Chloride) 100 mls @ 100 mls/hr IVPB Q6H [facility] Last Admin: 11/22/16 08:04 Dose: 100 mls/hr Metronidazole (Flagyl) 500 mg in 100 mls @ 100 mls/hr IVPB Q8H [facility] Last Admin: 11/22/16 01:28 Dose: 100 mls/hr Fluconazole (Diflucan Iv 100 Mg/50 Ml Ns) 50 mls @ 100 mls/hr IVPB DAILY [facility] Last Admin: 11/22/16 09:33 Dose: 100 mls/hr Lactated Ringer's (Lactated Ringer's) 1,000 mls @ 100 mls/hr IV .Q10H [facility] Insulin Aspart (Novolog) 0 unit SC ACHS [facility] PRN Reason: Protocol Last Admin: 11/22/16 12:36 Dose: 8 unit Insulin Detemir (Levemir) 15 unit SC DAILY [facility] Last Admin: 11/22/16 09:35 Dose: 15 unit Ondansetron HCl (Zofran Inj) 4 mg IVP Q6H PRN PRN Reason: Nausea/Vomiting Polyethylene Glycol/Electrolytes (Golytely) 4,000 ml PO ONCE ONE Stop: 11/25/16 10:01 - Labs Labs: 11/22/16 07:16 11/22/16 07:16 PT 19.3 SECONDS (9.7-12.2) H 11/20/16 07:44 INR 1.7 11/20/16 07:44 APTT 19 SECONDS (21-34) L 11/15/16 22:04 - Constitutional Appears: No Acute Distress - Head Exam Head Exam: NORMOCEPHALIC - Eye Exam Eye Exam: Normal appearance - ENT Exam ENT Exam: Mucous Membranes Moist - Respiratory Exam Respiratory Exam: NORMAL BREATHING PATTERN - Cardiovascular Exam Cardiovascular Exam: +S1, +S2 - GI/Abdominal Exam GI & Abdominal Exam: Soft - Rectal Exam Rectal Exam: NORMAL INSPECTION - Neurological Exam Neurological Exam: Alert, Awake, Oriented x3 - Psychiatric Exam Psychiatric exam: Normal Mood - Skin Skin Exam: Dry, Intact, Warm Assessment and Plan - Assessment and Plan (Free Text) Assessment: 66 M w/ sigmoid mass s/p colonoscopy w/ biopsy of rectosigmoid mass demonstrating invasive adenocarcinoma and proximal transverse polyp showing tubulous villous adenoma. Presence of pancreatic cyst -F/u AM labs -Patient found to have invasion to dome of urinary bladder -Will plan for surgery on Sunday 11/26 -Plan for bowel prep on Saturday 11/25 -IV abx -IVFs -analgesic/anti-emetic -DVT/GI prophylaxis Rodolfo Whitaker PGY-2
--- NOTE | 2016-11-22 13:59 | CP.PCM.PN ---
Addendum entered and electronically signed by Jose Coffman 11/22/16 21:02: Pharmacy recommended megestrol 400mg to stimulate appetite instead of marinol ( canniboid). Will follow pharmacy's recommendation. Original Note: <Jose Coffman - Last Filed: 11/22/16 20:40> Subjective - Date & Time of Evaluation Date of Evaluation: 11/22/16 Time of Evaluation: 07:00 - Subjective Subjective: PGY-[address] Rivera's Service: Patient was seen and examined at bedside. Resting comfortably and in NAD. Patient admits to some feelings of generalized weakness and lethargy following yesterday's procedure. However, he denies any pain at this time. He was able to urinate without issue last night, but has yet to make a BM. Appetite has improved and he is currently requesting a trial of solid food. Patient is otherwise without complaints. Denies any chest pain, SOB, n/v/d, abdominal pain or leg pain. Objective - Vital Signs/Intake and Output Vital Signs (last 24 hours): Temp Pulse Resp BP Pulse Ox 98.1 F 106 H 20 117/80 98 11/22/16 07:00 11/22/16 07:00 11/22/16 07:00 11/22/16 07:00 11/22/16 07:00 Intake and Output: 11/22/16 11/22/16 06:59 18:59 Intake Total 920 Output Total 875 Balance 45 - Medications Medications: Current Medications Dextrose (Dextrose 50% Inj) 0 ml IV STAT PRN; Protocol PRN Reason: Hyglycemia Protocol Last Admin: 11/18/16 06:21 Dose: 50 ml Enoxaparin Sodium (Lovenox) 90 mg SC Q12 [facility] Last Admin: 11/22/16 09:35 Dose: 90 mg Famotidine (Pepcid) 20 mg IVP Q12 [facility] Last Admin: 11/22/16 09:34 Dose: 20 mg Imipenem/Cilastatin Sodium 500 (mg/ Sodium Chloride) 100 mls @ 100 mls/hr IVPB Q6H [facility] Last Admin: 11/22/16 08:04 Dose: 100 mls/hr Metronidazole (Flagyl) 500 mg in 100 mls @ 100 mls/hr IVPB Q8H [facility] Last Admin: 11/22/16 13:02 Dose: 100 mls/hr Fluconazole (Diflucan Iv 100 Mg/50 Ml Ns) 50 mls @ 100 mls/hr IVPB DAILY [facility] [place] Last Admin: 11/22/16 09:33 Dose: 100 mls/hr Lactated Ringer's (Lactated Ringer's) 1,000 mls @ 100 mls/hr IV .Q10H [facility] Insulin Aspart (Novolog) 0 unit SC ACHS [facility] PRN Reason: Protocol Last Admin: 11/22/16 12:36 Dose: 8 unit Insulin Detemir (Levemir) 15 unit SC DAILY [facility] Last Admin: 11/22/16 09:35 Dose: 15 unit Ondansetron HCl (Zofran Inj) 4 mg IVP Q6H PRN PRN Reason: Nausea/Vomiting Polyethylene Glycol/Electrolytes (Golytely) 4,000 ml PO ONCE ONE Stop: 11/25/16 10:01 - Labs Labs: 11/22/16 07:16 11/22/16 07:16 PT 19.3 SECONDS (9.7-12.2) H 11/20/16 07:44 INR 1.7 11/20/16 07:44 APTT 19 SECONDS (21-34) L 11/15/16 22:04 - Constitutional Appears: No Acute Distress - Head Exam Head Exam: NORMAL INSPECTION - Eye Exam Eye Exam: Normal appearance - ENT Exam ENT Exam: Mucous Membranes Moist - Neck Exam Neck Exam: Normal Inspection - Respiratory Exam Respiratory Exam: Clear to Ausculation Bilateral, NORMAL BREATHING PATTERN - Cardiovascular Exam Cardiovascular Exam: REGULAR RHYTHM, +S1, +S2. absent: Murmur - GI/Abdominal Exam GI & Abdominal Exam: Tenderness Additional comments: ttp in lower right quadrant - Rectal Exam Rectal Exam: Deferred - Extremities Exam Additional comments: (+) Upper extremity edema, R>L; Pitting up to upper forearm. No tenderness. Unchanged from yesterday. (+) B/l LE edema, 2+ pitting up to mid calf. No calf tenderness. - Neurological Exam Neurological Exam: Alert, Awake - Skin Skin Exam: Dry, Intact, Normal Color, Warm Assessment and Plan - Assessment and Plan (Free Text) Assessment: (1) Chronic diarrhea 2/2 10 cm Sigmoid Mass 11/22: Pt advanced to solid food diet today. Surgery planning for OR 11/26. Added marinol to increased appetite per surgery request. 11/21: Pt s/p cystoscopy today. Patient found to have invasion to dome of urinary bladder. Surgery to plan for surgery some time next week 11/21: GI has signed off. 11/21: Per GI, Abdominal U/S obtained to rule out SV thrombosis given presence of gastroesopahgeal varices seen on endoscopic examination -> Abdominal U/S: 1. Hepatocellular disease without focal hepatic mass. 2. Patent portal venous system including splenic vein. 3. Cholelithiasis. No sonographic evidence of acute cholecystitis. 4. Cystic mass in the head of the pancreas. Remainder the pancreas is not visualized. 11/21: PICC placed today by IR DR Armando. 11/20: Dr Benji Jon will do cystoscopy tomorrow as surgery believes a cystoscopy could aid in surgical planning, surgery concerned about air in bladder and the way the mass abuts the bladder as seen on CT. Patient will be npo after midnight. 11/20: s/p upper EUS: "LA grade C erosive esophagitis. 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 75mm x 65mm psedocyst seen in pancreatic body, fine needle aspiration for fluid performed. Varices were visualized endosonographically in fundus of stomach". Will f/u cystology and CEA levels. 11/20: s/p venous duplex of upper extremities: "right: acute thrombosis of right subclavian, axillary and brachial veins with severe reduction of venous return. left: acute thrombosis of left cephatlic vein with severe reduction of venous return". Therapeutic lovenox started -> 90mg q12 sc. 11/20: s/p venous duplex of lower extremeties: negative 11/20: PICC line placed today. Magnesium was low, repleted. 11/19: GI to perform EUS tomorrow. Advanced diet to liquid - will advance as tolerated. B/l upper and lower extremity duplex scans were ordered today. 11/18: Patient is s/p EGD/Colonoscopy. A 10cm partially obstructing sigmoid mass was seen and biopsied. Multiple polyps were seen and resected. Heme/Onc, Dr Garcia has been consulted, we will follow up with his recommendations. 11/17: Still having the diarrhea. The C diff studies are pending. He will need to be on IV Flagyl. 11/16: Pending CT of abd / pelvis results. The appears to be a possible pancreatic area mass as well as colonic mass. The night team has already ordered tumor markers as well as stool studies. Abx were also ordered and the WBC decreased. CT chest abdomen and pelvis findings as noted: suspected sigmoid and proximal rectum mass lesion without evidence of high grade bowel obstruction; suspected abscess formation; cystic mass lesion noted at pancreas with surrounding fat stranding of the pancreatic tail; large gallstones without evidence of acute cholecystitis GI consult (Dr. Srivastava)---> Help appreciated General Surgery Consult (Dr. Amin)----> Help appreciated Urology Consult ( Dr. Jon)----> Help appreciated * All consulted due to unofficial read of CT Scan of chest/abdomen/pelvis: Intra -abdominal abscess/malignancy and bladder wall thickening * Still pending official radiologist report Potassium chloride/dextrose/sodium cl @ 100ml/hr iv q10 Stool culture negative for salmonella, shigella, campylobacter Stool leukocytes negative Ova and parasites not seen C. diffi toxin AB negative (2) Syncope - possibly secondary to ongoing diarrhea 11/19: Discontinued lowe, started a voiding trial today. 11/17: Feeling better today, continue with the IVF. He is tolerating the the liquid diet 11/16: Continue with the IVF, he reports diarrhea, also the patient reports poor PO intake. He looks dry on exam. He recently had an echo done on 10/[address]. His head CT was negative Also stop the blood pressure medication (3) Gram - negative positive blood cultures 11/19: HIV screen negative, Hep panel negative. Bands 26 today. 11/18: HIV 1&2 antibodies, Hep panel were ordered today. ID has been consulted, Dr Burns, we will follow his recommendations. 11/17: Changed to IV Primaxin 500mg IV Q6 Follow cultures. Currently blood pressure and HR stable. Nonfebrile. Continue with the IVF, monitor lowe outputs (4) Urinary tract infection 11/18: repeat urine culture ordered today as previous urine culture came back contaminated UA: Leukocytes esterase : 2+ WBC: 187 Yeast Budding: (positive) * Fluconazole 100mg IVPB daily (5) Metabolic acidosis, increased anion gap Improving with IVF Secondary to ketosis On admission: 33 After NS 0.9% @ 100mls/hr: 20 (6) Hypertension 11/16: Will hold lisnopril at this time (7) Uncontrolled diabetes mellitus Recent HgbA1C: 9.0 (09/28/16) Accuchecks ISS Levemir 15 units Hold glipizide (8) Ulcerated mucosa of esophagus 11/18: Per endoscopy report -> Ulcerated mucosa in the lower third of the esophagus was seen and biopsied. Patient is on pepcid iv 20mg q12. (9) Cystic mass lesion noted at pancreas with surrounding fat stranding of the pancreatic tail 11/20: Upper EUS performed today: "75mm x 65mm psedocyst seen in pancreatic body , fine needle aspiration for fluid performed 11/18: CT abd/pelvis shows cystic mass lesion at pancreas with fat stranding of pacreatic tail. Lipase level and lipid panel was ordered today. 11/17: CA 19-9 wnl (10) Cholelithiasis 11/18: CT abd/pelvis shows large gallstones without evidence of acute cholecystitis. (11) Prophylactic measure SCD (Contraindicated due to LE edema) Pepcid IV 20mg Q12H <Blanco Rivera M - Last Filed: 11/23/16 15:40> Objective - Vital Signs/Intake and Output Vital Signs (last 24 hours): Temp Pulse Resp BP Pulse Ox 98 F 78 20 102/71 97 11/23/16 08:00 11/23/16 08:00 11/23/16 08:00 11/23/16 08:00 11/23/16 08:00 Intake and Output: 11/23/16 11/23/16 06:59 18:59 Intake Total 770 Output Total 250 Balance 520 - Medications Medications: Current Medications Dextrose (Dextrose 50% Inj) 0 ml IV STAT PRN; Protocol PRN Reason: Hyglycemia Protocol Last Admin: 11/18/16 06:21 Dose: 50 ml Enoxaparin Sodium (Lovenox) 90 mg SC Q12 [facility] Last Admin: 11/23/16 11:30 Dose: 90 mg Famotidine (Pepcid) 20 mg IVP Q12 [facility] Last Admin: 11/23/16 11:32 Dose: 20 mg Imipenem/Cilastatin Sodium 500 (mg/ Sodium Chloride) 100 mls @ 100 mls/hr IVPB Q6H [facility] Last Admin: 11/23/16 14:44 Dose: 100 mls/hr Metronidazole (Flagyl) 500 mg in 100 mls @ 100 mls/hr IVPB Q8H [facility] [place] Last Admin: 11/23/16 11:28 Dose: 100 mls/hr Fluconazole (Diflucan Iv 100 Mg/50 Ml Ns) 50 mls @ 100 mls/hr IVPB DAILY [facility] Last Admin: 11/23/16 11:26 Dose: 100 mls/hr Lactated Ringer's (Lactated Ringer's) 1,000 mls @ 100 mls/hr IV .Q10H [facility] Sodium Chloride (Sodium Chloride 0.9%) 1,000 mls @ 75 mls/hr IV .[id number] [facility] Last Admin: 11/23/16 15:09 Dose: Not Given Insulin Aspart (Novolog) 0 unit SC ACHS [facility] PRN Reason: Protocol Last Admin: 11/23/16 12:35 Dose: 4 unit Insulin Detemir (Levemir) 15 unit SC DAILY [facility] [place] Last Admin: 11/23/16 11:29 Dose: 15 unit Megestrol Acetate (Megace) 400 mg PO DAILY [facility] [place] Last Admin: 11/23/16 11:32 Dose: 400 mg Ondansetron HCl (Zofran Inj) 4 mg IVP Q6H PRN PRN Reason: Nausea/Vomiting Polyethylene Glycol/Electrolytes (Golytely) 4,000 ml PO ONCE ONE Stop: 11/25/16 10:01 Potassium Phos/Sodium Phos (Neutra-Phos) 1 pkt PO TID [facility] Stop: 11/25/16 23:59 Last Admin: 11/23/16 14:39 Dose: 1 pkt - Labs Labs: 11/23/16 06:55 11/23/16 06:55 PT 16.5 SECONDS (9.7-12.2) H 11/23/16 06:55 INR 1.5 11/23/16 06:55 APTT 19 SECONDS (21-34) L 11/15/16 22:04 Attending/Attestation - Attestation I have personally seen and examined this patient.: Yes I have fully participated in the care of the patient.: Yes I have reviewed all pertinent clinical information, including history, physical exam and plan: Yes Notes (Text): 11/23/16 15:38 Patient was seen and examined at bedside with the resident Patient complains of lack of appetite. Started on megestrol Plan for surgery likely early next week I discussed the plan of care with the resident and agree with the history and physical and assessment/plan documented above.
--- NOTE | 2016-11-22 16:27 | CP.PCM.PN ---
Subjective - Date & Time of Evaluation Date of Evaluation: 11/22/16 Time of Evaluation: 07:00 - Subjective Subjective: afeb on iv rx dr ferraro following cont rx min 14 days Objective - Vital Signs/Intake and Output Vital Signs (last 24 hours): Temp Pulse Resp BP Pulse Ox 98.1 F 106 H 20 117/80 98 11/22/16 07:00 11/22/16 07:00 11/22/16 07:00 11/22/16 07:00 11/22/16 07:00 Intake and Output: 11/22/16 11/22/16 06:59 18:59 Intake Total 920 800 Output Total 875 550 Balance 45 250 - Medications Medications: Current Medications Dextrose (Dextrose 50% Inj) 0 ml IV STAT PRN; Protocol PRN Reason: Hyglycemia Protocol Last Admin: 11/18/16 06:21 Dose: 50 ml Enoxaparin Sodium (Lovenox) 90 mg SC Q12 [facility] Last Admin: 11/22/16 09:35 Dose: 90 mg Famotidine (Pepcid) 20 mg IVP Q12 [facility] Last Admin: 11/22/16 09:34 Dose: 20 mg Imipenem/Cilastatin Sodium 500 (mg/ Sodium Chloride) 100 mls @ 100 mls/hr IVPB Q6H [facility] Last Admin: 11/22/16 15:23 Dose: 100 mls/hr Metronidazole (Flagyl) 500 mg in 100 mls @ 100 mls/hr IVPB Q8H [facility] Last Admin: 11/22/16 13:02 Dose: 100 mls/hr Fluconazole (Diflucan Iv 100 Mg/50 Ml Ns) 50 mls @ 100 mls/hr IVPB DAILY [facility] Last Admin: 11/22/16 09:33 Dose: 100 mls/hr Lactated Ringer's (Lactated Ringer's) 1,000 mls @ 100 mls/hr IV .Q10H [facility] Insulin Aspart (Novolog) 0 unit SC ACHS [facility] PRN Reason: Protocol Last Admin: 11/22/16 12:36 Dose: 8 unit Insulin Detemir (Levemir) 15 unit SC DAILY [facility] Last Admin: 11/22/16 09:35 Dose: 15 unit Ondansetron HCl (Zofran Inj) 4 mg IVP Q6H PRN PRN Reason: Nausea/Vomiting Polyethylene Glycol/Electrolytes (Golytely) 4,000 ml PO ONCE ONE Stop: 11/25/16 10:01 - Labs Labs: 11/22/16 07:16 11/22/16 07:16 PT 19.3 SECONDS (9.7-12.2) H 11/20/16 07:44 INR 1.7 11/20/16 07:44 APTT 19 SECONDS (21-34) L 11/15/16 22:04 - Constitutional Appears: Non-toxic - Eye Exam Eye Exam: PERRL - ENT Exam ENT Exam: Mucous Membranes Dry - Neck Exam Neck Exam: absent: Thyromegaly - Respiratory Exam Respiratory Exam: Decreased Breath Sounds - Cardiovascular Exam Cardiovascular Exam: REGULAR RHYTHM - GI/Abdominal Exam GI & Abdominal Exam: Distended, Soft Assessment and Plan (1) Chronic diarrhea Status: Acute (2) Colonic mass Status: Acute (3) Diabetic ketosis Status: Acute (4) GI bleeding Status: Acute (5) E coli bacteremia Status: Acute (6) E coli bacteremia Status: Acute
[2016-11-22] MEDS: Megestrol Acetate 40 mg/ml Cup PO SCH (21:42)
[2016-11-22] MEDS: Dextrose 50% SYRINGE Inj (50 ml) IV PRN (21:55)
[2016-11-22] MEDS ORDERED: Dextrose 50% SYRINGE Inj (50 ml) ONE (21:58)
[2016-11-23] MEDS: Sodium Chloride 0.9% 1,000 ML IV SCH ×2 (00:35→15:09)
[2016-11-23] MEDS: metroNIDAZOLE IV 500 mg/100 ml 500 MG/100 ML BAG IVPB SCH ×3 (02:01→17:29)
--- NOTE | 2016-11-23 03:32 | CP.PCM.PN ---
<Ramila Lawrence - Last Filed: 11/23/16 03:27> Subjective - Date & Time of Evaluation Date of Evaluation: 11/23/16 Time of Evaluation: 07:00 - Subjective Subjective: PGY1-Medicine Note-Dr. Valdes Service Patient seen and examined at bedside and is in no acute distress. Patient says he is in no pain and feeling okay. Patient denies headache, shortness of breath , chest pain, abdominal pain, nausea, vomiting, constipation, or diarrhea Objective - Vital Signs/Intake and Output Vital Signs (last 24 hours): Temp Pulse Resp BP Pulse Ox 97.6 F 99 H 20 119/75 99 11/22/16 23:30 11/23/16 00:26 11/22/16 23:30 11/22/16 23:30 11/22/16 23:30 Intake and Output: 11/22/16 11/23/16 18:59 06:59 Intake Total 1220 Output Total 850 Balance 370 - Medications Medications: Current Medications Dextrose (Dextrose 50% Inj) 0 ml IV STAT PRN; Protocol PRN Reason: Hyglycemia Protocol Last Admin: 11/18/16 06:21 Dose: 50 ml Enoxaparin Sodium (Lovenox) 90 mg SC Q12 [facility] Last Admin: 11/22/16 21:30 Dose: 90 mg Famotidine (Pepcid) 20 mg IVP Q12 [facility] Last Admin: 11/22/16 21:31 Dose: 20 mg Imipenem/Cilastatin Sodium 500 (mg/ Sodium Chloride) 100 mls @ 100 mls/hr IVPB Q6H [facility] Last Admin: 11/22/16 21:30 Dose: 100 mls/hr Metronidazole (Flagyl) 500 mg in 100 mls @ 100 mls/hr IVPB Q8H [facility] Last Admin: 11/23/16 02:01 Dose: 100 mls/hr Fluconazole (Diflucan Iv 100 Mg/50 Ml Ns) 50 mls @ 100 mls/hr IVPB DAILY [facility] Last Admin: 11/22/16 09:33 Dose: 100 mls/hr Lactated Ringer's (Lactated Ringer's) 1,000 mls @ 100 mls/hr IV .Q10H [facility] Sodium Chloride (Sodium Chloride 0.9%) 1,000 mls @ 75 mls/hr IV .[id number] [facility] Last Admin: 11/23/16 00:35 Dose: 75 mls/hr Insulin Aspart (Novolog) 0 unit SC ACHS [facility] PRN Reason: Protocol Last Admin: 11/22/16 21:40 Dose: Not Given Insulin Detemir (Levemir) 15 unit SC DAILY [facility] Last Admin: 11/22/16 09:35 Dose: 15 unit Megestrol Acetate (Megace) 400 mg PO DAILY [facility] Last Admin: 11/22/16 21:42 Dose: 400 mg Ondansetron HCl (Zofran Inj) 4 mg IVP Q6H PRN PRN Reason: Nausea/Vomiting Polyethylene Glycol/Electrolytes (Golytely) 4,000 ml PO ONCE ONE Stop: 11/25/16 10:01 - Labs Labs: 11/22/16 07:16 11/22/16 07:16 PT 19.3 SECONDS (9.7-12.2) H 11/20/16 07:44 INR 1.7 11/20/16 07:44 APTT 19 SECONDS (21-34) L 11/15/16 22:04 - Constitutional Appears: Well - Head Exam Head Exam: ATRAUMATIC, NORMAL INSPECTION, NORMOCEPHALIC - Eye Exam Eye Exam: EOMI, Normal appearance, PERRL - ENT Exam ENT Exam: Mucous Membranes Moist, Normal Exam - Neck Exam Neck Exam: Full ROM, Normal Inspection. absent: Lymphadenopathy - Respiratory Exam Respiratory Exam: Clear to Ausculation Bilateral, NORMAL BREATHING PATTERN - Cardiovascular Exam Cardiovascular Exam: REGULAR RHYTHM, RRR, +S1, +S2. absent: Murmur - GI/Abdominal Exam GI & Abdominal Exam: Soft, Normal Bowel Sounds. absent: Distended, Firm, Guarding, Rigid, Tenderness - Extremities Exam Extremities Exam: Full ROM, Normal Capillary Refill, Normal Inspection. absent : Joint Swelling, Pedal Edema - Back Exam Back Exam: NORMAL INSPECTION. absent: rash noted - Neurological Exam Neurological Exam: Alert, Awake, Oriented x3 - Psychiatric Exam Psychiatric exam: Normal Affect, Normal Mood - Skin Skin Exam: Intact, Normal Color, Warm Assessment and Plan - Assessment and Plan (Free Text) Assessment: (1) Chronic diarrhea 2/2 10 cm Sigmoid Mass 11/22: Pt advanced to solid food diet today. Surgery planning for OR 11/26. Added marinol to increased appetite per surgery request. 11/21: Pt s/p cystoscopy today. Patient found to have invasion to dome of urinary bladder. Surgery to plan for surgery some time next week 11/21: GI has signed off. 11/21: Per GI, Abdominal U/S obtained to rule out SV thrombosis given presence of gastroesopahgeal varices seen on endoscopic examination -> Abdominal U/S: 1. Hepatocellular disease without focal hepatic mass. 2. Patent portal venous system including splenic vein. 3. Cholelithiasis. No sonographic evidence of acute cholecystitis. 4. Cystic mass in the head of the pancreas. Remainder the pancreas is not visualized. 11/21: PICC placed today by IR DR Armando. 11/20: Dr Benji Jon will do cystoscopy tomorrow as surgery believes a cystoscopy could aid in surgical planning, surgery concerned about air in bladder and the way the mass abuts the bladder as seen on CT. Patient will be npo after midnight. 11/20: s/p upper EUS: "LA grade C erosive esophagitis. 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 75mm x 65mm psedocyst seen in pancreatic body, fine needle aspiration for fluid performed. Varices were visualized endosonographically in fundus of stomach". Will f/u cystology and CEA levels. 11/20: s/p venous duplex of upper extremities: "right: acute thrombosis of right subclavian, axillary and brachial veins with severe reduction of venous return. left: acute thrombosis of left cephatlic vein with severe reduction of venous return". Therapeutic lovenox started -> 90mg q12 sc. 11/20: s/p venous duplex of lower extremeties: negative 11/20: PICC line placed today. Magnesium was low, repleted. 11/19: GI to perform EUS tomorrow. Advanced diet to liquid - will advance as tolerated. B/l upper and lower extremity duplex scans were ordered today. 11/18: Patient is s/p EGD/Colonoscopy. A 10cm partially obstructing sigmoid mass was seen and biopsied. Multiple polyps were seen and resected. Heme/Onc, Dr Garcia has been consulted, we will follow up with his recommendations. 11/17: Still having the diarrhea. The C diff studies are pending. He will need to be on IV Flagyl. 11/16: Pending CT of abd / pelvis results. The appears to be a possible pancreatic area mass as well as colonic mass. The night team has already ordered tumor markers as well as stool studies. Abx were also ordered and the WBC decreased. CT chest abdomen and pelvis findings as noted: suspected sigmoid and proximal rectum mass lesion without evidence of high grade bowel obstruction; suspected abscess formation; cystic mass lesion noted at pancreas with surrounding fat stranding of the pancreatic tail; large gallstones without evidence of acute cholecystitis GI consult (Dr. Srivastava)---> Help appreciated General Surgery Consult (Dr. Amin)----> Help appreciated Urology Consult ( Dr. Jon)----> Help appreciated * All consulted due to unofficial read of CT Scan of chest/abdomen/pelvis: Intra -abdominal abscess/malignancy and bladder wall thickening * Still pending official radiologist report Potassium chloride/dextrose/sodium cl @ 100ml/hr iv q10 Stool culture negative for salmonella, shigella, campylobacter Stool leukocytes negative Ova and parasites not seen C. diffi toxin AB negative (2) Syncope - possibly secondary to ongoing diarrhea 11/19: Discontinued lowe, started a voiding trial today. 11/17: Feeling better today, continue with the IVF. He is tolerating the the liquid diet 11/16: Continue with the IVF, he reports diarrhea, also the patient reports poor PO intake. He looks dry on exam. He recently had an echo done on 10/[address] His head CT was negative Also stop the blood pressure medication (3) Gram - negative positive blood cultures 11/19: HIV screen negative, Hep panel negative. Bands 26 today. 11/18: HIV 1&2 antibodies, Hep panel were ordered today. ID has been consulted, Dr Burns, we will follow his recommendations. 11/17: Changed to IV Primaxin 500mg IV Q6 Follow cultures. Currently blood pressure and HR stable. Nonfebrile. Continue with the IVF, monitor lowe outputs (4) Urinary tract infection 11/18: repeat urine culture ordered today as previous urine culture came back contaminated UA: Leukocytes esterase : 2+ WBC: 187 Yeast Budding: (positive) * Fluconazole 100mg IVPB daily (5) Metabolic acidosis, increased anion gap Improving with IVF Secondary to ketosis On admission: 33 After NS 0.9% @ 100mls/hr: 20 (6) Hypertension 11/16: Will hold lisnopril at this time (7) Uncontrolled diabetes mellitus 11/23: episode of hypoglycemia, juice and sandwich given, then given 50 ml of Dextrose 50% iv Recent HgbA1C: 9.0 (09/28/16) Accuchecks ISS Levemir 15 units Hold glipizide (8) Ulcerated mucosa of esophagus 11/18: Per endoscopy report -> Ulcerated mucosa in the lower third of the esophagus was seen and biopsied. Patient is on pepcid iv 20mg q12. (9) Cystic mass lesion noted at pancreas with surrounding fat stranding of the pancreatic tail 11/20: Upper EUS performed today: "75mm x 65mm psedocyst seen in pancreatic body , fine needle aspiration for fluid performed 11/18: CT abd/pelvis shows cystic mass lesion at pancreas with fat stranding of pacreatic tail. Lipase level and lipid panel was ordered today. 11/17: CA 19-9 wnl (10) Cholelithiasis 11/18: CT abd/pelvis shows large gallstones without evidence of acute cholecystitis. (11) Prophylactic measure SCD (Contraindicated due to LE edema) Pepcid IV 20mg Q12H <Blanco Rivera - Last Filed: 11/23/16 16:35> Objective - Vital Signs/Intake and Output Vital Signs (last 24 hours): Temp Pulse Resp BP Pulse Ox 98 F 78 20 102/71 97 11/23/16 08:00 11/23/16 08:00 11/23/16 08:00 11/23/16 08:00 11/23/16 08:00 Intake and Output: 11/23/16 11/23/16 06:59 18:59 Intake Total 770 Output Total 250 Balance 520 - Medications Medications: Current Medications Dextrose (Dextrose 50% Inj) 0 ml IV STAT PRN; Protocol PRN Reason: Hyglycemia Protocol Last Admin: 11/18/16 06:21 Dose: 50 ml Enoxaparin Sodium (Lovenox) 90 mg SC Q12 [facility] Last Admin: 11/23/16 11:30 Dose: 90 mg Famotidine (Pepcid) 20 mg IVP Q12 [facility] Last Admin: 11/23/16 11:32 Dose: 20 mg Imipenem/Cilastatin Sodium 500 (mg/ Sodium Chloride) 100 mls @ 100 mls/hr IVPB Q6H [facility] Last Admin: 11/23/16 14:44 Dose: 100 mls/hr Metronidazole (Flagyl) 500 mg in 100 mls @ 100 mls/hr IVPB Q8H [facility] Last Admin: 11/23/16 11:28 Dose: 100 mls/hr Fluconazole (Diflucan Iv 100 Mg/50 Ml Ns) 50 mls @ 100 mls/hr IVPB DAILY [facility] Last Admin: 11/23/16 11:26 Dose: 100 mls/hr Lactated Ringer's (Lactated Ringer's) 1,000 mls @ 100 mls/hr IV .Q10H [facility] Sodium Chloride (Sodium Chloride 0.9%) 1,000 mls @ 75 mls/hr IV .[id number] [facility] Last Admin: 11/23/16 15:09 Dose: Not Given Insulin Aspart (Novolog) 0 unit SC ACHS [facility] PRN Reason: Protocol Last Admin: 11/23/16 12:35 Dose: 4 unit Insulin Detemir (Levemir) 15 unit SC DAILY [facility] Last Admin: 11/23/16 11:29 Dose: 15 unit Megestrol Acetate (Megace) 400 mg PO DAILY [facility] Last Admin: 11/23/16 11:32 Dose: 400 mg Ondansetron HCl (Zofran Inj) 4 mg IVP Q6H PRN PRN Reason: Nausea/Vomiting Polyethylene Glycol/Electrolytes (Golytely) 4,000 ml PO ONCE ONE Stop: 11/25/16 10:01 Potassium Phos/Sodium Phos (Neutra-Phos) 1 pkt PO TID [facility] Stop: 11/25/16 23:59 Last Admin: 11/23/16 14:39 Dose: 1 pkt - Labs Labs: 11/23/16 06:55 11/23/16 06:55 PT 16.5 SECONDS (9.7-12.2) H 11/23/16 06:55 INR 1.5 11/23/16 06:55 APTT 19 SECONDS (21-34) L 11/15/16 22:04 Attending/Attestation - Attestation I have personally seen and examined this patient.: Yes I have fully participated in the care of the patient.: Yes I have reviewed all pertinent clinical information, including history, physical exam and plan: Yes Notes (Text): 11/23/16 16:34 Patient was seen and examined at bedside Patient appears comfortable and states that he has a better appetite today We will repeat blood cultures and follow up results Continue antibiotics for Escherichia coli bacteremia Patient is on meropenem Planning for surgery likely early next week I agree with the history and physical and assessment/plan documented by the resident with the necessary amendments.
[2016-11-23 07:16] LABS: BASO % 0.1 % (0.0-2.0); EOS % 0.4 % (0.0-4.0); HEMATOCRIT 28.3 % (35.0-51.0); LYMPH # 1.7 K/uL (1.0-4.3); LYMPH % 20.2 % (20.0-40.0); MEAN CELL VOLUME 67.5 fL (80.0-94.0); MEAN CORPUSCULAR HEMOGLOBIN 21.7 pg (27.0-31.0); MEAN CORPUSCULAR HGB CONC 32.2 g/dL (33.0-37.0); MEAN PLATELET VOLUME 8.7 fL (7.2-11.7); MONO # 0.9 K/uL (0.0-0.8); MONO % 10.4 % (0.0-10.0); RED CELL DISTRIBUTION WIDTH 20.6 % (11.5-14.5); WHITE BLOOD COUNT 8.2 K/uL (4.8-10.8)
[2016-11-23 07:19] LABS: INR 1.5
[2016-11-23 07:24] LABS: ALB/GLOB RATIO 0.6 (1.0-2.1); ALKALINE PHOSPHATASE 99 U/L (38-126); ALT/SGPT 33 U/L (21-72); AST/SGOT 11 U/L (17-59); BILIRUBIN,TOTAL 0.7 mg/dL (0.2-1.3); BLOOD UREA NITROGEN 12 mg/dL (9-20); CALCIUM 6.6 mg/dl (8.6-10.4); CARBON DIOXIDE 26 mmol/L (22-30); CHLORIDE 101 mmol/L (98-107); GFR AFRICAN-AMERICAN > 60; GLUCOSE,RANDOM 117 mg/dL (75-110); MAGNESIUM 1.8 mg/dL (1.6-2.3); PHOSPHOROUS 2.3 mg/dL (2.5-4.5); POTASSIUM 3.6 mmol/L (3.6-5.2); SODIUM 134 mmol/L (132-148); TOTAL PROTEIN 4.5 g/dL (6.3-8.3)
[2016-11-23] MEDS: (Novolog) Insulin Aspart, Recombinant 100 u/ml 10 ml vial SC SCH ×4 (08:59→22:09)
[2016-11-23 10:27] LABS: HEMOGLOBIN F <1.0 Percent (<2.0)
[2016-11-23] MEDS: Fluconazole IV 100mg/50 ml NS 50 ML IVPB SCH (11:26)
[2016-11-23] MEDS: Insulin Detemir 100 units/ml Vial (Levemir) SC SCH (11:29)
[2016-11-23] MEDS: Enoxaparin 100 mg Syringe SC SCH ×2 (11:30→22:08)
[2016-11-23] MEDS: Megestrol Acetate 40 mg/ml Cup PO SCH (11:32)
[2016-11-23] MEDS: Potassium & Sodium Phosphate PO SCH ×3 (12:07→17:47)
--- NOTE | 2016-11-23 12:33 | CP.PCM.PN ---
Subjective - Date & Time of Evaluation Date of Evaluation: 11/23/16 Time of Evaluation: 07:50 - Subjective Subjective: Patient seen and examined at bedside this AM. NAEO. Patient denies any pain, nausea, vomiting, or any other symptoms. Patient states he is having regular bowel movements. Objective - Vital Signs/Intake and Output Vital Signs (last 24 hours): Temp Pulse Resp BP Pulse Ox 98 F 94 H 20 102/71 97 11/23/16 08:00 11/23/16 08:00 11/23/16 08:00 11/23/16 08:00 11/23/16 08:00 Intake and Output: 11/23/16 11/23/16 06:59 18:59 Intake Total 770 Output Total 250 Balance 520 - Medications Medications: Current Medications Dextrose (Dextrose 50% Inj) 0 ml IV STAT PRN; Protocol PRN Reason: Hyglycemia Protocol Last Admin: 11/18/16 06:21 Dose: 50 ml Enoxaparin Sodium (Lovenox) 90 mg SC Q12 [facility] Last Admin: 11/23/16 11:30 Dose: 90 mg Famotidine (Pepcid) 20 mg IVP Q12 [facility] Last Admin: 11/23/16 11:32 Dose: 20 mg Imipenem/Cilastatin Sodium 500 (mg/ Sodium Chloride) 100 mls @ 100 mls/hr IVPB Q6H [facility] Last Admin: 11/23/16 09:45 Dose: 100 mls/hr Metronidazole (Flagyl) 500 mg in 100 mls @ 100 mls/hr IVPB Q8H [facility] Last Admin: 11/23/16 11:28 Dose: 100 mls/hr Fluconazole (Diflucan Iv 100 Mg/50 Ml Ns) 50 mls @ 100 mls/hr IVPB DAILY [facility] Last Admin: 11/23/16 11:26 Dose: 100 mls/hr Lactated Ringer's (Lactated Ringer's) 1,000 mls @ 100 mls/hr IV .Q10H [facility] Sodium Chloride (Sodium Chloride 0.9%) 1,000 mls @ 75 mls/hr IV .[id number] [facility] Last Admin: 11/23/16 00:35 Dose: 75 mls/hr Insulin Aspart (Novolog) 0 unit SC ACHS [facility] PRN Reason: Protocol Last Admin: 11/23/16 08:59 Dose: Not Given Insulin Detemir (Levemir) 15 unit SC DAILY [facility] Last Admin: 11/23/16 11:29 Dose: 15 unit Megestrol Acetate (Megace) 400 mg PO DAILY [facility] Last Admin: 11/23/16 11:32 Dose: 400 mg Ondansetron HCl (Zofran Inj) 4 mg IVP Q6H PRN PRN Reason: Nausea/Vomiting Polyethylene Glycol/Electrolytes (Golytely) 4,000 ml PO ONCE ONE Stop: 11/25/16 10:01 Potassium Phos/Sodium Phos (Neutra-Phos) 1 pkt PO TID [facility] Stop: 11/25/16 23:59 Last Admin: 11/23/16 12:07 Dose: Not Given - Labs Labs: 11/23/16 06:55 11/23/16 06:55 PT 16.5 SECONDS (9.7-12.2) H 11/23/16 06:55 INR 1.5 11/23/16 06:55 APTT 19 SECONDS (21-34) L 11/15/16 22:04 - Constitutional Appears: Well, Non-toxic, No Acute Distress - Head Exam Head Exam: ATRAUMATIC, NORMOCEPHALIC - Eye Exam Eye Exam: Normal appearance. absent: Conjunctival injection, Scleral icterus - ENT Exam ENT Exam: Mucous Membranes Moist, Normal Oropharynx - Respiratory Exam Respiratory Exam: NORMAL BREATHING PATTERN. absent: Accessory Muscle Use, Respiratory Distress - Cardiovascular Exam Cardiovascular Exam: RRR - GI/Abdominal Exam GI & Abdominal Exam: Soft. 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 Brennan Lin PGY2
[2016-11-23 17:15] LABS: AMYLASE PERITONEAL FLUID 80 U/L
--- NOTE | 2016-11-24 01:58 | CP.PCM.PN ---
Subjective - Date & Time of Evaluation Date of Evaluation: 11/24/16 Time of Evaluation: 07:10 - Subjective Subjective: Patient seen and examined this AM. NAEO. Patient denies any abdominal pain, dysuria, fevers, chills, nausea, or vomiting. Objective - Vital Signs/Intake and Output Vital Signs (last 24 hours): Temp Pulse Resp BP Pulse Ox 98.1 F 89 20 114/75 98 11/23/16 23:40 11/23/16 23:40 11/23/16 23:40 11/23/16 23:40 11/23/16 23:40 Intake and Output: 11/23/16 11/24/16 18:59 06:59 Intake Total 900 1200 Output Total 400 150 Balance 500 1050 - Medications Medications: Current Medications Dextrose (Dextrose 50% Inj) 0 ml IV STAT PRN; Protocol PRN Reason: Hyglycemia Protocol Last Admin: 11/18/16 06:21 Dose: 50 ml Famotidine (Pepcid) 20 mg IVP Q12 [facility] Last Admin: 11/23/16 22:09 Dose: 20 mg Imipenem/Cilastatin Sodium 500 (mg/ Sodium Chloride) 100 mls @ 100 mls/hr IVPB Q6H [facility] Last Admin: 11/23/16 20:46 Dose: 100 mls/hr Metronidazole (Flagyl) 500 mg in 100 mls @ 100 mls/hr IVPB Q8H [facility] Last Admin: 11/23/16 17:29 Dose: 100 mls/hr Fluconazole (Diflucan Iv 100 Mg/50 Ml Ns) 50 mls @ 100 mls/hr IVPB DAILY [facility] Last Admin: 11/23/16 11:26 Dose: 100 mls/hr Lactated Ringer's (Lactated Ringer's) 1,000 mls @ 100 mls/hr IV .Q10H [facility] Sodium Chloride (Sodium Chloride 0.9%) 1,000 mls @ 75 mls/hr IV .[id number] [facility] Last Admin: 11/23/16 15:09 Dose: Not Given Insulin Aspart (Novolog) 0 unit SC ACHS [facility] PRN Reason: Protocol Last Admin: 11/23/16 22:09 Dose: Not Given Insulin Detemir (Levemir) 15 unit SC DAILY [facility] Last Admin: 11/23/16 11:29 Dose: 15 unit Megestrol Acetate (Megace) 400 mg PO DAILY [facility] Last Admin: 11/23/16 11:32 Dose: 400 mg Ondansetron HCl (Zofran Inj) 4 mg IVP Q6H PRN PRN Reason: Nausea/Vomiting Polyethylene Glycol/Electrolytes (Golytely) 4,000 ml PO ONCE ONE Stop: 11/25/16 10:01 Potassium Phos/Sodium Phos (Neutra-Phos) 1 pkt PO TID [facility] Stop: 11/25/16 23:59 Last Admin: 11/23/16 17:47 Dose: 1 pkt - Labs Labs: 11/23/16 06:55 11/23/16 06:55 PT 16.5 SECONDS (9.7-12.2) H 11/23/16 06:55 INR 1.5 11/23/16 06:55 APTT 19 SECONDS (21-34) L 11/15/16 22:04 - Constitutional Appears: Well, Non-toxic, No Acute Distress - Head Exam Head Exam: ATRAUMATIC, NORMOCEPHALIC - Eye Exam Eye Exam: Normal appearance. absent: Conjunctival injection, Scleral icterus - ENT Exam ENT Exam: Mucous Membranes Moist, Normal Oropharynx - Respiratory Exam Respiratory Exam: NORMAL BREATHING PATTERN. absent: Accessory Muscle Use, Respiratory Distress - Cardiovascular Exam Cardiovascular Exam: RRR - GI/Abdominal Exam GI & Abdominal Exam: Soft. 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 Brennan Lin PGY2
[2016-11-24] MEDS: metroNIDAZOLE IV 500 mg/100 ml 500 MG/100 ML BAG IVPB SCH ×3 (02:32→17:47)
--- NOTE | 2016-11-24 03:08 | CP.PCM.PN ---
<Ramila Lawrence - Last Filed: 11/24/16 02:58> Subjective - Date & Time of Evaluation Date of Evaluation: 11/24/16 Time of Evaluation: 07:00 - Subjective Subjective: PGY1-Medicine Note-Dr. Valdes Service Patient seen and examined at bedside and is in no acute distress. Patient says he is in no pain and feeling okay. Patient denies headache, shortness of breath , chest pain, abdominal pain, nausea, vomiting, constipation, or diarrhea Objective - Vital Signs/Intake and Output Vital Signs (last 24 hours): Temp Pulse Resp BP Pulse Ox 98.1 F 89 20 114/75 98 11/23/16 23:40 11/23/16 23:40 11/23/16 23:40 11/23/16 23:40 11/23/16 23:40 Intake and Output: 11/23/16 11/24/16 18:59 06:59 Intake Total 900 1200 Output Total 400 150 Balance 500 1050 - Medications Medications: Current Medications Dextrose (Dextrose 50% Inj) 0 ml IV STAT PRN; Protocol PRN Reason: Hyglycemia Protocol Last Admin: 11/18/16 06:21 Dose: 50 ml Famotidine (Pepcid) 20 mg IVP Q12 [facility] Last Admin: 11/23/16 22:09 Dose: 20 mg Imipenem/Cilastatin Sodium 500 (mg/ Sodium Chloride) 100 mls @ 100 mls/hr IVPB Q6H [facility] Last Admin: 11/24/16 02:31 Dose: 100 mls/hr Metronidazole (Flagyl) 500 mg in 100 mls @ 100 mls/hr IVPB Q8H [facility] Last Admin: 11/24/16 02:32 Dose: 100 mls/hr Fluconazole (Diflucan Iv 100 Mg/50 Ml Ns) 50 mls @ 100 mls/hr IVPB DAILY [facility] Last Admin: 11/23/16 11:26 Dose: 100 mls/hr Lactated Ringer's (Lactated Ringer's) 1,000 mls @ 100 mls/hr IV .Q10H [facility] Sodium Chloride (Sodium Chloride 0.9%) 1,000 mls @ 75 mls/hr IV .[id number] [facility] Last Admin: 11/23/16 15:09 Dose: Not Given Insulin Aspart (Novolog) 0 unit SC ACHS [facility] PRN Reason: Protocol Last Admin: 11/23/16 22:09 Dose: Not Given Insulin Detemir (Levemir) 15 unit SC DAILY [facility] Last Admin: 11/23/16 11:29 Dose: 15 unit Megestrol Acetate (Megace) 400 mg PO DAILY [facility] Last Admin: 11/23/16 11:32 Dose: 400 mg Ondansetron HCl (Zofran Inj) 4 mg IVP Q6H PRN PRN Reason: Nausea/Vomiting Polyethylene Glycol/Electrolytes (Golytely) 4,000 ml PO ONCE ONE Stop: 11/25/16 10:01 Potassium Phos/Sodium Phos (Neutra-Phos) 1 pkt PO TID [facility] Stop: 11/25/16 23:59 Last Admin: 11/23/16 17:47 Dose: 1 pkt - Labs Labs: 11/23/16 06:55 11/23/16 06:55 PT 16.5 SECONDS (9.7-12.2) H 11/23/16 06:55 INR 1.5 11/23/16 06:55 APTT 19 SECONDS (21-34) L 11/15/16 22:04 - Constitutional Appears: Well, No Acute Distress - Head Exam Head Exam: ATRAUMATIC, NORMAL INSPECTION, NORMOCEPHALIC - Eye Exam Eye Exam: EOMI, Normal appearance, PERRL - ENT Exam ENT Exam: Mucous Membranes Moist, Normal Exam - Neck Exam Neck Exam: Full ROM, Normal Inspection. absent: Lymphadenopathy - Respiratory Exam Respiratory Exam: Clear to Ausculation Bilateral, NORMAL BREATHING PATTERN - GI/Abdominal Exam GI & Abdominal Exam: Soft, Normal Bowel Sounds. absent: Tenderness - Extremities Exam Extremities Exam: Normal Inspection, Pedal Edema Additional comments: 2+ pitting edema - Back Exam Back Exam: NORMAL INSPECTION - Neurological Exam Neurological Exam: Alert, Awake, Oriented x3 - Psychiatric Exam Psychiatric exam: Normal Affect, Normal Mood - Skin Skin Exam: Intact, Normal Color, Warm Assessment and Plan - Assessment and Plan (Free Text) Assessment: (1) Chronic diarrhea 2/2 10 cm Sigmoid Mass patient to get sigmoid colon mass removed on 11/26 11/22: Pt advanced to solid food diet today. Surgery planning for OR 11/26. Added marinol to increased appetite per surgery request. 11/21: Pt s/p cystoscopy today. Patient found to have invasion to dome of urinary bladder. Surgery to plan for surgery some time next week 11/21: GI has signed off. 11/21: Per GI, Abdominal U/S obtained to rule out SV thrombosis given presence of gastroesopahgeal varices seen on endoscopic examination -> Abdominal U/S: 1. Hepatocellular disease without focal hepatic mass. 2. Patent portal venous system including splenic vein. 3. Cholelithiasis. No sonographic evidence of acute cholecystitis. 4. Cystic mass in the head of the pancreas. Remainder the pancreas is not visualized. 11/21: PICC placed today by IR DR Armando. 11/20: Dr Benji Jon will do cystoscopy tomorrow as surgery believes a cystoscopy could aid in surgical planning, surgery concerned about air in bladder and the way the mass abuts the bladder as seen on CT. Patient will be npo after midnight. 11/20: s/p upper EUS: "LA grade C erosive esophagitis. 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 75mm x 65mm psedocyst seen in pancreatic body, fine needle aspiration for fluid performed. Varices were visualized endosonographically in fundus of stomach". Will f/u cystology and CEA levels. 11/20: s/p venous duplex of upper extremities: "right: acute thrombosis of right subclavian, axillary and brachial veins with severe reduction of venous return. left: acute thrombosis of left cephatlic vein with severe reduction of venous return". Therapeutic lovenox started -> 90mg q12 sc. 11/20: s/p venous duplex of lower extremeties: negative 11/20: PICC line placed today. Magnesium was low, repleted. 11/19: GI to perform EUS tomorrow. Advanced diet to liquid - will advance as tolerated. B/l upper and lower extremity duplex scans were ordered today. 11/18: Patient is s/p EGD/Colonoscopy. A 10cm partially obstructing sigmoid mass was seen and biopsied. Multiple polyps were seen and resected. Heme/Onc, Dr Garcia has been consulted, we will follow up with his recommendations. 11/17: Still having the diarrhea. The C diff studies are pending. He will need to be on IV Flagyl. 11/16: Pending CT of abd / pelvis results. The appears to be a possible pancreatic area mass as well as colonic mass. The night team has already ordered tumor markers as well as stool studies. Abx were also ordered and the WBC decreased. CT chest abdomen and pelvis findings as noted: suspected sigmoid and proximal rectum mass lesion without evidence of high grade bowel obstruction; suspected abscess formation; cystic mass lesion noted at pancreas with surrounding fat stranding of the pancreatic tail; large gallstones without evidence of acute cholecystitis GI consult (Dr. Srivastava)---> Help appreciated General Surgery Consult (Dr. Amin)----> Help appreciated Urology Consult ( Dr. Jon)----> Help appreciated * All consulted due to unofficial read of CT Scan of chest/abdomen/pelvis: Intra -abdominal abscess/malignancy and bladder wall thickening * Still pending official radiologist report Potassium chloride/dextrose/sodium cl @ 100ml/hr iv q10 Stool culture negative for salmonella, shigella, campylobacter Stool leukocytes negative Ova and parasites not seen C. diffi toxin AB negative (2) Syncope - possibly secondary to ongoing diarrhea 11/19: Discontinued lowe, started a voiding trial today. 11/17: Feeling better today, continue with the IVF. He is tolerating the the liquid diet 11/16: Continue with the IVF, he reports diarrhea, also the patient reports poor PO intake. He looks dry on exam. He recently had an echo done on 10/[address] His head CT was negative Also stop the blood pressure medication (3) Gram - negative positive blood cultures 11/19: HIV screen negative, Hep panel negative. Bands 26 today. 11/18: HIV 1&2 antibodies, Hep panel were ordered today. ID has been consulted, Dr Burns, we will follow his recommendations. 11/17: Changed to IV Primaxin 500mg IV Q6 Follow cultures. Currently blood pressure and HR stable. Nonfebrile. Continue with the IVF, monitor lowe outputs (4) Urinary tract infection 11/18: repeat urine culture ordered today as previous urine culture came back contaminated UA: Leukocytes esterase : 2+ WBC: 187 Yeast Budding: (positive) * Fluconazole 100mg IVPB daily (5) Metabolic acidosis, increased anion gap Improving with IVF Secondary to ketosis On admission: 33 After NS 0.9% @ 100mls/hr: 20 (6) Hypertension 11/16: Will hold lisnopril at this time (7) Uncontrolled diabetes mellitus 11/23: episode of hypoglycemia, juice and sandwich given, then given 50 ml of Dextrose 50% iv Recent HgbA1C: 9.0 (09/28/16) Accuchecks ISS Levemir 15 units Hold glipizide (8) Ulcerated mucosa of esophagus 11/18: Per endoscopy report -> Ulcerated mucosa in the lower third of the esophagus was seen and biopsied. Patient is on pepcid iv 20mg q12. (9) Cystic mass lesion noted at pancreas with surrounding fat stranding of the pancreatic tail 11/20: Upper EUS performed today: "75mm x 65mm psedocyst seen in pancreatic body , fine needle aspiration for fluid performed 11/18: CT abd/pelvis shows cystic mass lesion at pancreas with fat stranding of pacreatic tail. Lipase level and lipid panel was ordered today. 11/17: CA 19-9 wnl (10) Cholelithiasis 11/18: CT abd/pelvis shows large gallstones without evidence of acute cholecystitis. (11) Hyoocalcemia calcium 6.6, corrected is 8.5 monitor (12) Prophylactic measure SCD (Contraindicated due to LE edema) Pepcid IV 20mg Q12H lovenox should be stopped 11/25 after AM dose and patient to be put on heparin drip which should be discontinued 3 hours before surgery <Blanco Rivera - Last Filed: 11/24/16 14:37> Objective - Vital Signs/Intake and Output Vital Signs (last 24 hours): Temp Pulse Resp BP Pulse Ox 98.1 F 88 20 114/75 98 11/23/16 23:40 11/24/16 05:02 11/23/16 23:40 11/23/16 23:40 11/23/16 23:40 Intake and Output: 11/24/16 11/24/16 06:59 18:59 Intake Total 1200 Output Total 400 Balance 800 - Medications Medications: Current Medications Dextrose (Dextrose 50% Inj) 0 ml IV STAT PRN; Protocol PRN Reason: Hyglycemia Protocol Last Admin: 11/18/16 06:21 Dose: 50 ml Enoxaparin Sodium (Lovenox) 90 mg SC Q12 [facility] Last Admin: 11/24/16 09:29 Dose: 90 mg Famotidine (Pepcid) 20 mg IVP Q12 [facility] Last Admin: 11/24/16 09:27 Dose: 20 mg Imipenem/Cilastatin Sodium 500 (mg/ Sodium Chloride) 100 mls @ 100 mls/hr IVPB Q6H [facility] Last Admin: 11/24/16 13:56 Dose: 100 mls/hr Metronidazole (Flagyl) 500 mg in 100 mls @ 100 mls/hr IVPB Q8H [facility] Last Admin: 11/24/16 10:16 Dose: 100 mls/hr Fluconazole (Diflucan Iv 100 Mg/50 Ml Ns) 50 mls @ 100 mls/hr IVPB DAILY [facility] Last Admin: 11/24/16 09:28 Dose: 100 mls/hr Lactated Ringer's (Lactated Ringer's) 1,000 mls @ 100 mls/hr IV .Q10H [facility] Insulin Aspart (Novolog) 0 unit SC ACHS [facility] PRN Reason: Protocol Last Admin: 11/24/16 12:58 Dose: Not Given Insulin Detemir (Levemir) 15 unit SC DAILY [facility] Last Admin: 11/24/16 09:28 Dose: 15 unit Megestrol Acetate (Megace) 400 mg PO DAILY [facility] Last Admin: 11/24/16 09:27 Dose: 400 mg Ondansetron HCl (Zofran Inj) 4 mg IVP Q6H PRN PRN Reason: Nausea/Vomiting Polyethylene Glycol/Electrolytes (Golytely) 4,000 ml PO ONCE ONE Stop: 11/25/16 10:01 Potassium Phos/Sodium Phos (Neutra-Phos) 1 pkt PO TID [facility] Stop: 11/25/16 23:59 Last Admin: 11/24/16 13:57 Dose: 1 pkt Saccharomyces Boulardii (Florastor) 250 mg PO BID [facility] Last Admin: 11/24/16 11:39 Dose: 250 mg - Labs Labs: 11/24/16 07:25 11/24/16 07:25 PT 14.9 SECONDS (9.7-12.2) H 11/24/16 07:25 INR 1.3 11/24/16 07:25 APTT 19 SECONDS (21-34) L 11/15/16 22:04 Attending/Attestation - Attestation I have personally seen and examined this patient.: Yes I have fully participated in the care of the patient.: Yes I have reviewed all pertinent clinical information, including history, physical exam and plan: Yes Notes (Text): 11/24/16 14:36 Patient was seen and examined at bedside. Patient states that appetite has improved. However he complains of diarrhea We will check stool for C. difficile. We have also added probiotic to the patient's regimen of medication The plan is for surgery on 11/26/2016. Lovenox to be switched to heparin drip tomorrow and then stop the heparin drip 4 hours prior to the surgical procedure. I agree with the history and physical and assessment/plan by the resident with the exception noted..
[2016-11-24 07:49] LABS: ALB/GLOB RATIO 0.6 (1.0-2.1); BLOOD UREA NITROGEN 11 mg/dL (9-20); CHLORIDE 101 mmol/L (98-107); GFR AFRICAN-AMERICAN > 60; GLUCOSE,RANDOM 77 mg/dL (75-110); INR 1.3; MAGNESIUM 1.7 mg/dL (1.6-2.3); PHOSPHOROUS 2.6 mg/dL (2.5-4.5); TOTAL PROTEIN 4.6 g/dL (6.3-8.3)
[2016-11-24 07:54] LABS: BASO % 0.2 % (0.0-2.0); EOS % 0.4 % (0.0-4.0); HEMATOCRIT 28.5 % (35.0-51.0); LYMPH # 1.7 K/uL (1.0-4.3); LYMPH % 20.5 % (20.0-40.0); MEAN CELL VOLUME 67.7 fL (80.0-94.0); MEAN CORPUSCULAR HEMOGLOBIN 21.6 pg (27.0-31.0); MEAN CORPUSCULAR HGB CONC 31.9 g/dL (33.0-37.0); MEAN PLATELET VOLUME 8.8 fL (7.2-11.7); MONO # 0.7 K/uL (0.0-0.8); MONO % 8.8 % (0.0-10.0); NRBC % 0.1 % (0.0-2.0); RED CELL DISTRIBUTION WIDTH 20.6 % (11.5-14.5); WHITE BLOOD COUNT 8.2 K/uL (4.8-10.8)
[2016-11-24] MEDS: (Novolog) Insulin Aspart, Recombinant 100 u/ml 10 ml vial SC SCH ×4 (07:56→22:22)
[2016-11-24 08:07] LABS: ALKALINE PHOSPHATASE 115 U/L (38-126); ALT/SGPT 31 U/L (21-72); AST/SGOT 16 U/L (17-59); BILIRUBIN,TOTAL 0.7 mg/dL (0.2-1.3); CALCIUM 6.4 mg/dl (8.6-10.4); CARBON DIOXIDE 27 mmol/L (22-30); POTASSIUM 3.4 mmol/L (3.6-5.2); SODIUM 137 mmol/L (132-148)
[2016-11-24] MEDS: Megestrol Acetate 40 mg/ml Cup PO SCH (09:27)
[2016-11-24] MEDS: Insulin Detemir 100 units/ml Vial (Levemir) SC SCH (09:28)
[2016-11-24] MEDS: Fluconazole IV 100mg/50 ml NS 50 ML IVPB SCH (09:28)
[2016-11-24] MEDS: Potassium & Sodium Phosphate PO SCH ×3 (09:28→17:46)
[2016-11-24] MEDS: Enoxaparin 100 mg Syringe SC SCH ×2 (09:29→23:00)
[2016-11-24] MEDS: Sodium Chloride 0.9% 1,000 ML IV SCH (09:37)
[2016-11-24] MEDS ORDERED: Potassium Chloride 20 mEq ER Tab PO ONE (10:00)
[2016-11-24] MEDS: Saccharomyces Boulardi 250 mg Cap PO SCH ×2 (11:39→17:46)
--- NOTE | 2016-11-24 15:00 | CP.PCM.PN ---
Subjective - Date & Time of Evaluation Date of Evaluation: 11/22/16 Time of Evaluation: 12:00 - Subjective Subjective: Has abdominal pain. Objective - Vital Signs/Intake and Output Vital Signs (last 24 hours): Temp Pulse Resp BP Pulse Ox 98.1 F 88 20 114/75 98 11/23/16 23:40 11/24/16 05:02 11/23/16 23:40 11/23/16 23:40 11/23/16 23:40 Intake and Output: 11/24/16 11/24/16 06:59 18:59 Intake Total 1200 Output Total 400 Balance 800 - Medications Medications: Current Medications Dextrose (Dextrose 50% Inj) 0 ml IV STAT PRN; Protocol PRN Reason: Hyglycemia Protocol Last Admin: 11/18/16 06:21 Dose: 50 ml Enoxaparin Sodium (Lovenox) 90 mg SC Q12 [facility] Last Admin: 11/24/16 09:29 Dose: 90 mg Famotidine (Pepcid) 20 mg IVP Q12 [facility] Last Admin: 11/24/16 09:27 Dose: 20 mg Imipenem/Cilastatin Sodium 500 (mg/ Sodium Chloride) 100 mls @ 100 mls/hr IVPB Q6H [facility] Last Admin: 11/24/16 13:56 Dose: 100 mls/hr Metronidazole (Flagyl) 500 mg in 100 mls @ 100 mls/hr IVPB Q8H [facility] Last Admin: 11/24/16 10:16 Dose: 100 mls/hr Fluconazole (Diflucan Iv 100 Mg/50 Ml Ns) 50 mls @ 100 mls/hr IVPB DAILY [facility] Last Admin: 11/24/16 09:28 Dose: 100 mls/hr Lactated Ringer's (Lactated Ringer's) 1,000 mls @ 100 mls/hr IV .Q10H [facility] Insulin Aspart (Novolog) 0 unit SC ACHS [facility] PRN Reason: Protocol Last Admin: 11/24/16 12:58 Dose: Not Given Insulin Detemir (Levemir) 15 unit SC DAILY [facility] Last Admin: 11/24/16 09:28 Dose: 15 unit Megestrol Acetate (Megace) 400 mg PO DAILY [facility] Last Admin: 11/24/16 09:27 Dose: 400 mg Ondansetron HCl (Zofran Inj) 4 mg IVP Q6H PRN PRN Reason: Nausea/Vomiting Polyethylene Glycol/Electrolytes (Golytely) 4,000 ml PO ONCE ONE Stop: 11/25/16 10:01 Potassium Phos/Sodium Phos (Neutra-Phos) 1 pkt PO TID [facility] Stop: 11/25/16 23:59 Last Admin: 11/24/16 13:57 Dose: 1 pkt Saccharomyces Boulardii (Florastor) 250 mg PO BID [facility] Last Admin: 11/24/16 11:39 Dose: 250 mg - Labs Labs: 11/24/16 07:25 11/24/16 07:25 PT 14.9 SECONDS (9.7-12.2) H 11/24/16 07:25 INR 1.3 11/24/16 07:25 APTT 19 SECONDS (21-34) L 11/15/16 22:04 - Head Exam Head Exam: ATRAUMATIC - Eye Exam Eye Exam: Normal appearance - ENT Exam ENT Exam: Mucous Membranes Dry - Respiratory Exam Respiratory Exam: NORMAL BREATHING PATTERN - Cardiovascular Exam Cardiovascular Exam: +S1, +S2 - GI/Abdominal Exam GI & Abdominal Exam: Normal Bowel Sounds - Extremities Exam Extremities Exam: Normal Inspection Assessment and Plan (1) Colon cancer Assessment & Plan: appears to have bladder involvement for surgery Status: Acute (2) Anemia Assessment & Plan: chronic disease Status: Acute (3) Pancreatic lesion Assessment & Plan: s/p eus and biopsy Status: Acute
--- NOTE | 2016-11-24 15:07 | CP.PCM.PN ---
Subjective - Date & Time of Evaluation Date of Evaluation: 11/23/16 Time of Evaluation: 16:00 - Subjective Subjective: Has some abdominal pain. Will D/C megace as can cause blood clots Objective - Vital Signs/Intake and Output Vital Signs (last 24 hours): Temp Pulse Resp BP Pulse Ox 98.1 F 88 20 114/75 98 11/23/16 23:40 11/24/16 05:02 11/23/16 23:40 11/23/16 23:40 11/23/16 23:40 Intake and Output: 11/24/16 11/24/16 06:59 18:59 Intake Total 1200 Output Total 400 Balance 800 - Medications Medications: Current Medications Dextrose (Dextrose 50% Inj) 0 ml IV STAT PRN; Protocol PRN Reason: Hyglycemia Protocol Last Admin: 11/18/16 06:21 Dose: 50 ml Enoxaparin Sodium (Lovenox) 90 mg SC Q12 [facility] Last Admin: 11/24/16 09:29 Dose: 90 mg Famotidine (Pepcid) 20 mg IVP Q12 [facility] Last Admin: 11/24/16 09:27 Dose: 20 mg Imipenem/Cilastatin Sodium 500 (mg/ Sodium Chloride) 100 mls @ 100 mls/hr IVPB Q6H [facility] Last Admin: 11/24/16 13:56 Dose: 100 mls/hr Metronidazole (Flagyl) 500 mg in 100 mls @ 100 mls/hr IVPB Q8H [facility] Last Admin: 11/24/16 10:16 Dose: 100 mls/hr Fluconazole (Diflucan Iv 100 Mg/50 Ml Ns) 50 mls @ 100 mls/hr IVPB DAILY [facility] Last Admin: 11/24/16 09:28 Dose: 100 mls/hr Lactated Ringer's (Lactated Ringer's) 1,000 mls @ 100 mls/hr IV .Q10H [facility] Insulin Aspart (Novolog) 0 unit SC ACHS [facility] PRN Reason: Protocol Last Admin: 11/24/16 12:58 Dose: Not Given Insulin Detemir (Levemir) 15 unit SC DAILY [facility] Last Admin: 11/24/16 09:28 Dose: 15 unit Megestrol Acetate (Megace) 400 mg PO DAILY [facility] Last Admin: 11/24/16 09:27 Dose: 400 mg Ondansetron HCl (Zofran Inj) 4 mg IVP Q6H PRN PRN Reason: Nausea/Vomiting Polyethylene Glycol/Electrolytes (Golytely) 4,000 ml PO ONCE ONE Stop: 11/25/16 10:01 Potassium Phos/Sodium Phos (Neutra-Phos) 1 pkt PO TID [facility] Stop: 11/25/16 23:59 Last Admin: 11/24/16 13:57 Dose: 1 pkt Saccharomyces Boulardii (Florastor) 250 mg PO BID [facility] Last Admin: 11/24/16 11:39 Dose: 250 mg - Labs Labs: 11/24/16 07:25 11/24/16 07:25 PT 14.9 SECONDS (9.7-12.2) H 11/24/16 07:25 INR 1.3 11/24/16 07:25 APTT 19 SECONDS (21-34) L 11/15/16 22:04 - Head Exam Head Exam: ATRAUMATIC - Eye Exam Eye Exam: Normal appearance - ENT Exam ENT Exam: Mucous Membranes Dry - Respiratory Exam Respiratory Exam: NORMAL BREATHING PATTERN - Cardiovascular Exam Cardiovascular Exam: +S1, +S2 - GI/Abdominal Exam GI & Abdominal Exam: Normal Bowel Sounds - Extremities Exam Extremities Exam: Pedal Edema Assessment and Plan (1) Colon cancer Assessment & Plan: with bladder involvement for surgery Status: Acute (2) DVT (deep venous thrombosis) Assessment & Plan: likely provoked from malignancy thereapeutic lovenox will D/C megace as can cause blood clots Status: Acute (3) Anemia Assessment & Plan: chronic disease Status: Acute (4) Pancreatic lesion Assessment & Plan: s/p EUS and biopsy Status: Acute
--- NOTE | 2016-11-24 15:40 | CP.PCM.PN ---
Subjective - Date & Time of Evaluation Date of Evaluation: 11/24/16 Time of Evaluation: 09:00 - Subjective Subjective: less abd pain' iv rx renewed Objective - Vital Signs/Intake and Output Vital Signs (last 24 hours): Temp Pulse Resp BP Pulse Ox 98.1 F 88 20 114/75 98 11/23/16 23:40 11/24/16 05:02 11/23/16 23:40 11/23/16 23:40 11/23/16 23:40 Intake and Output: 11/24/16 11/24/16 06:59 18:59 Intake Total 1200 Output Total 400 300 Balance 800 -300 - Medications Medications: Current Medications Dextrose (Dextrose 50% Inj) 0 ml IV STAT PRN; Protocol PRN Reason: Hyglycemia Protocol Last Admin: 11/18/16 06:21 Dose: 50 ml Enoxaparin Sodium (Lovenox) 90 mg SC Q12 [facility] Last Admin: 11/24/16 09:29 Dose: 90 mg Famotidine (Pepcid) 20 mg IVP Q12 [facility] Last Admin: 11/24/16 09:27 Dose: 20 mg Imipenem/Cilastatin Sodium 500 (mg/ Sodium Chloride) 100 mls @ 100 mls/hr IVPB Q6H [facility] Last Admin: 11/24/16 13:56 Dose: 100 mls/hr Metronidazole (Flagyl) 500 mg in 100 mls @ 100 mls/hr IVPB Q8H [facility] Last Admin: 11/24/16 10:16 Dose: 100 mls/hr Fluconazole (Diflucan Iv 100 Mg/50 Ml Ns) 50 mls @ 100 mls/hr IVPB DAILY [facility] Last Admin: 11/24/16 09:28 Dose: 100 mls/hr Lactated Ringer's (Lactated Ringer's) 1,000 mls @ 100 mls/hr IV .Q10H [facility] Insulin Aspart (Novolog) 0 unit SC ACHS [facility] PRN Reason: Protocol Last Admin: 11/24/16 12:58 Dose: Not Given Insulin Detemir (Levemir) 15 unit SC DAILY [facility] Last Admin: 11/24/16 09:28 Dose: 15 unit Ondansetron HCl (Zofran Inj) 4 mg IVP Q6H PRN PRN Reason: Nausea/Vomiting Polyethylene Glycol/Electrolytes (Golytely) 4,000 ml PO ONCE ONE Stop: 11/25/16 10:01 Potassium Phos/Sodium Phos (Neutra-Phos) 1 pkt PO TID [facility] Stop: 11/25/16 23:59 Last Admin: 11/24/16 13:57 Dose: 1 pkt Saccharomyces Boulardii (Florastor) 250 mg PO BID [facility] Last Admin: 11/24/16 11:39 Dose: 250 mg - Labs Labs: 11/24/16 07:25 11/24/16 07:25 PT 14.9 SECONDS (9.7-12.2) H 11/24/16 07:25 INR 1.3 11/24/16 07:25 APTT 19 SECONDS (21-34) L 11/15/16 22:04 - Constitutional Appears: Non-toxic - Head Exam Head Exam: NORMAL INSPECTION - Eye Exam Eye Exam: EOMI. absent: PERRL - ENT Exam ENT Exam: Mucous Membranes Dry, Normal External Ear Exam - Respiratory Exam Respiratory Exam: Clear to Ausculation Bilateral - Cardiovascular Exam Cardiovascular Exam: REGULAR RHYTHM - GI/Abdominal Exam GI & Abdominal Exam: Distended, Soft Assessment and Plan (1) Chronic diarrhea Status: Acute (2) Colonic mass Status: Acute (3) Diabetic ketosis Status: Acute (4) GI bleeding Status: Acute (5) E coli bacteremia Status: Acute (6) E coli bacteremia Status: Acute
[2016-11-25] MEDS: metroNIDAZOLE IV 500 mg/100 ml 500 MG/100 ML BAG IVPB SCH ×3 (02:26→17:55)
[2016-11-25 07:29] LABS: INR 1.3
[2016-11-25 07:39] LABS: CHLORIDE 102 mmol/L (98-107)
[2016-11-25 07:40] LABS: POTASSIUM 3.8 mmol/L (3.6-5.2); SODIUM 136 mmol/L (132-148)
[2016-11-25 07:41] LABS: BASO % 0.2 % (0.0-2.0); EOS % 0.3 % (0.0-4.0); HEMATOCRIT 27.1 % (35.0-51.0); LYMPH # 1.4 K/uL (1.0-4.3); LYMPH % 18.2 % (20.0-40.0); MEAN CELL VOLUME 68.1 fL (80.0-94.0); MEAN CORPUSCULAR HEMOGLOBIN 21.6 pg (27.0-31.0); MEAN CORPUSCULAR HGB CONC 31.8 g/dL (33.0-37.0); MEAN PLATELET VOLUME 9.3 fL (7.2-11.7); MONO # 0.5 K/uL (0.0-0.8); MONO % 6.8 % (0.0-10.0); RED CELL DISTRIBUTION WIDTH 20.9 % (11.5-14.5); WHITE BLOOD COUNT 7.6 K/uL (4.8-10.8)
[2016-11-25 07:42] LABS: ALB/GLOB RATIO 0.6 (1.0-2.1); ALKALINE PHOSPHATASE 144 U/L (38-126); ALT/SGPT 27 U/L (21-72); AST/SGOT 21 U/L (17-59); BILIRUBIN,TOTAL 0.5 mg/dL (0.2-1.3); BLOOD UREA NITROGEN 10 mg/dL (9-20); CARBON DIOXIDE 27 mmol/L (22-30); GFR AFRICAN-AMERICAN > 60; TOTAL PROTEIN 4.4 g/dL (6.3-8.3)
[2016-11-25 07:43] LABS: CALCIUM 6.5 mg/dl (8.6-10.4); GLUCOSE,RANDOM 102 mg/dL (75-110); MAGNESIUM 1.5 mg/dL (1.6-2.3); PHOSPHOROUS 3.1 mg/dL (2.5-4.5)
[2016-11-25] MEDS: (Novolog) Insulin Aspart, Recombinant 100 u/ml 10 ml vial SC SCH ×4 (08:11→21:24)
[2016-11-25] MEDS ORDERED: Magnesium Sulfate 1 gm in D5W 1 GM/100 ML BAG IVPB ONE (08:13)
[2016-11-25] MEDS: Enoxaparin 100 mg Syringe SC SCH (09:05)
[2016-11-25] MEDS: Saccharomyces Boulardi 250 mg Cap PO SCH ×3 (09:10→17:56)
[2016-11-25] MEDS: Potassium & Sodium Phosphate PO SCH ×4 (09:30→17:56)
--- NOTE | 2016-11-25 09:33 | CP.PCM.CON ---
<Radha Carrillo - Last Filed: 11/25/16 10:23> History of Present Illness - History of Present Illness History of Present Illness: Cardiology Consult note for Dr. Ruiz Reason for consult: Risk stratification for OR 66 yo M PMHx HTN and DM presented to the ED on 11/16 s/p fall via EMS. Patient reported he fell on his way to the bathroom and felt weak and dizzy prior. He denied any LOC and head trauma. Patient has a hx of falls. As per resident note , patient had 2 episodes of coffee ground emesis and an NGT was placed that drained ~400cc fluid with minimal blood and particles. On admission patient also admitted to having diarrhea with hematochezia and decreased PO intake. Since admission, patient had: 11/[address] which was negative for acute bleed 11/15 EKG: sinus tachycardia HR @ 126bpm 11/16 CT abdomen/pelvis was suspicious for sigmoid and proximal rectum mass lesion with possibility of sigmoid colon cancer; two enhancing wall fluid collections containing air at the midline pelvis and R lower abdomen suspicious for abscess; cystic mass lesion at pancreas with thin wall containg foci of calcification suspicious for pseudo pancreatic cyst; fat stranding surrounding the pancreatic tail; large gallstones without evidence of acute cholecystitis. 11/18 EGD: ulcerated mucosa in esophagus; erythematous mucosa in the gastric body and prepyloric region of the stomach; normal duodenal bu;lb and 2nd part of the duodenum 11/18 Colonoscopy: likely malignant partially obstructing tumor in the rectosigmoid colon; removal was not done; biopsied; one 5-7mm polyp in the transverse colon; resected and retrieved. 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; FNA performed 11/19 Bilateral LE dopplers were negative for DVT 11/19 Bilateral UE dopplers showed acute thrombosis of the R subclavian, axillary , and brachcial veins on the Rght and acute thrombosis of the L cephalic vein < - patient has been on therapeutic lovenox which is to be changed to heparin gtt prior to OR on 11/26 Abdominal u/s: hepatocellular disease without focal hepatic mass; patent portal venous system including splenic vein; cholelithiasis; cystic mass in head of pancreas 11/21 Abdominal x-ray: unremarkable 11/21 Cystoscopy showed invasion of adenoca to dome of bladder Surgery on board case for 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 Patient seen this AM resting comfortably. He had no acute events overnight and was NPO after 10am this morning and drinking bowel prep. He denied any complaints of headache, dizziness, chest pain, palpitations, SOB, cough, abd pain, nausea, vomiting, pain in his legs bilaterally. Patient did admit to swelling of his legs bilaterally. He has been ambulating with PT while in hospital. 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 Review of Systems - Constitutional Constitutional: As Per HPI. absent: Chills, Fever - EENT Eyes: As Per HPI. absent: Blurred Vision Ears: As Per HPI. absent: Tinnitus, Dizziness Nose/Mouth/Throat: As Per HPI. absent: Sore Throat - Cardiovascular Cardiovascular: As Per HPI, Rapid Heart Rate. absent: Chest Pain, Dyspnea, Dyspnea on Exertion, Syncope - Respiratory Respiratory: As Per HPI. absent: Cough, Dyspnea, Chest Congestion - Gastrointestinal Gastrointestinal: As Per HPI, Diarrhea. absent: Abdominal Pain, Constipation, Nausea, Vomiting - Genitourinary Genitourinary: As Per HPI. absent: Dysuria - Musculoskeletal Musculoskeletal: As Per HPI. absent: Numbness, Tingling - Integumentary Integumentary: As Per HPI. absent: Rash - Neurological Neurological: As Per HPI. absent: Dizziness, Headaches - Psychiatric Psychiatric: As Per HPI. absent: Anxiety, Depression - Endocrine Endocrine: As Per HPI. absent: Palpitations Past Patient History - Past Medical History & Family History Past Medical History?: No - Past Social History Smoking Status: Never Smoked - CARDIAC Hx Hypertension: Yes - PULMONARY Hx Respiratory Disorders: No - NEUROLOGICAL Hx Neurological Disorder: No - HEENT Hx HEENT Problems: No - RENAL Hx Chronic Kidney Disease: No - ENDOCRINE/METABOLIC Hx Diabetes Mellitus Type 2: Yes - HEMATOLOGICAL/ONCOLOGICAL Hx Blood Disorders: No Hx Blood Transfusions: No - INTEGUMENTARY Hx Dermatological Problems: No - MUSCULOSKELETAL/RHEUMATOLOGICAL Hx Falls: Yes - GASTROINTESTINAL Hx Gastrointestinal Disorders: No - GENITOURINARY/GYNECOLOGICAL Hx Genitourinary Disorders: No - PSYCHIATRIC Hx Substance Use: No - SURGICAL HISTORY Hx Surgeries: Yes - ANESTHESIA Hx Anesthesia: Yes Hx Anesthesia Reactions: No Hx Malignant Hyperthermia: No Meds Allergies/Adverse Reactions: Allergies Allergy/AdvReac Type Severity Reaction Status Date / Time No Known Allergies Allergy Verified 11/15/16 21:27 - Medications Medications: Current Medications Dextrose (Dextrose 50% Inj) 0 ml IV STAT PRN; Protocol PRN Reason: Hyglycemia Protocol Last Admin: 11/18/16 06:21 Dose: 50 ml Famotidine (Pepcid) 20 mg IVP Q12 [facility] Last Admin: 11/25/16 09:10 Dose: 20 mg Imipenem/Cilastatin Sodium 500 (mg/ Sodium Chloride) 100 mls @ 100 mls/hr IVPB Q6H DOREEN Last Admin: 11/25/16 08:59 Dose: 100 mls/hr Metronidazole (Flagyl) 500 mg in 100 mls @ 100 mls/hr IVPB Q8H DOREEN Last Admin: 11/25/16 02:26 Dose: 100 mls/hr Fluconazole (Diflucan Iv 100 Mg/50 Ml Ns) 50 mls @ 100 mls/hr IVPB DAILY [facility] Last Admin: 11/24/16 09:28 Dose: 100 mls/hr Lactated Ringer's (Lactated Ringer's) 1,000 mls @ 100 mls/hr IV .Q10H [facility] Insulin Aspart (Novolog) 0 unit SC ACHS DOREEN PRN Reason: Protocol Last Admin: 11/25/16 08:11 Dose: Not Given Insulin Detemir (Levemir) 15 unit SC DAILY [facility] Last Admin: 11/24/16 09:28 Dose: 15 unit Ondansetron HCl (Zofran Inj) 4 mg IVP Q6H PRN PRN Reason: Nausea/Vomiting Polyethylene Glycol/Electrolytes (Golytely) 4,000 ml PO ONCE ONE Stop: 11/25/16 10:01 Last Admin: 11/25/16 09:15 Dose: 4,000 ml Potassium Phos/Sodium Phos (Neutra-Phos) 1 pkt PO TID DOREEN Stop: 11/25/16 23:59 Last Admin: 11/25/16 09:30 Dose: 1 pkt Niels Wilburn (Florastor) 250 mg PO BID [facility] Last Admin: 11/25/16 09:10 Dose: 250 mg Physical Exam - Constitutional Appears: Non-toxic, No Acute Distress - Head Exam Head Exam: ATRAUMATIC, NORMOCEPHALIC - Eye Exam Eye Exam: EOMI, Normal appearance, PERRL. absent: Conjunctival injection, Scleral icterus Pupil Exam: NORMAL ACCOMODATION - ENT Exam ENT Exam: Mucous Membranes Moist - Neck Exam Neck exam: Positive for: Full Rom, Normal Inspection - Respiratory Exam Respiratory Exam: Clear to Auscultation Bilateral, NORMAL BREATHING PATTERN. absent: Accessory Muscle Use, Rales, Rhonchi, Wheezes - Cardiovascular Exam Cardiovascular Exam: Tachycardia, REGULAR RHYTHM, +S1, +S2. absent: Systolic Murmur - GI/Abdominal Exam GI & Abdominal Exam: Normal Bowel Sounds, Soft. absent: Firm, Guarding, Rigid, Tenderness - Extremities Exam Extremities exam: Positive for: pedal edema (+2 b/l pitting). Negative for: normal inspection - Neurological Exam Neurological exam: Alert, Oriented x3 - Psychiatric Exam Psychiatric exam: Normal Affect, Normal Mood - Skin Skin Exam: Dry, Intact, Normal Color, Warm Results - Vital Signs Recent Vital Signs: Last Vital Signs Temp 98.4 F 11/25/16 07:35 Pulse 92 H 11/25/16 07:35 Resp 20 11/25/16 07:35 BP 103/72 11/25/16 07:35 Pulse Ox 97 11/25/16 07:35 - Labs Result Diagrams: 11/25/16 07:10 11/25/16 07:10 Labs: Laboratory Results - last 24 hr 11/24/16 11/24/16 11/24/16 12:27 17:31 21:25 WBC RBC Hgb Hct MCV MCH MCHC RDW Plt Count MPV Neut % (Auto) Lymph % (Auto) Mccone % (Auto) Eos % (Auto) Baso % (Auto) Neut # Lymph # Mccone # Eos # Baso # PT INR Sodium Potassium Chloride Carbon Dioxide Anion Gap BUN Creatinine Est GFR ( Amer) Est GFR (Non-Af Amer) POC Glucose (mg/dL) 170 H 79 124 H Random Glucose Calcium Phosphorus Magnesium Total Bilirubin AST ALT Alkaline Phosphatase Total Protein Albumin Globulin Albumin/Globulin Ratio Blood Type Antibody Screen 11/25/16 11/25/16 11/25/16 03:29 03:54 06:16 WBC RBC Hgb Hct MCV MCH MCHC RDW Plt Count MPV Neut % (Auto) Lymph % (Auto) Mccone % (Auto) Eos % (Auto) Baso % (Auto) Neut # Lymph # Mccone # Eos # Baso # PT INR Sodium Potassium Chloride Carbon Dioxide Anion Gap BUN Creatinine Est GFR ( Amer) Est GFR (Non-Af Amer) POC Glucose (mg/dL) 42 L 88 116 H Random Glucose Calcium Phosphorus Magnesium Total Bilirubin AST ALT Alkaline Phosphatase Total Protein Albumin Globulin Albumin/Globulin Ratio Blood Type Antibody Screen 11/25/16 11/25/16 11/25/16 07:10 07:10 07:10 WBC 7.6 RBC 3.98 L Hgb 8.6 L Hct 27.1 L MCV 68.1 L MCH 21.6 L MCHC 31.8 L RDW 20.9 H Plt Count 145 MPV 9.3 Neut % (Auto) 74.5 Lymph % (Auto) 18.2 L Mccone % (Auto) 6.8 Eos % (Auto) 0.3 Baso % (Auto) 0.2 Neut # 5.7 Lymph # 1.4 Mccone # 0.5 Eos # 0.0 Baso # 0.0 PT INR Sodium 136 Potassium 3.8 Chloride 102 Carbon Dioxide 27 Anion Gap 11 BUN 10 Creatinine 0.5 L Est GFR ( Amer) > 60 Est GFR (Non-Af Amer) > 60 POC Glucose (mg/dL) Random Glucose 102 Calcium 6.5 L Phosphorus 3.1 Magnesium 1.5 L Total Bilirubin 0.5 AST 21 ALT 27 Alkaline Phosphatase 144 H D Total Protein 4.4 L Albumin 1.6 L Globulin 2.8 Albumin/Globulin Ratio 0.6 L Blood Type O POSITIVE Antibody Screen Negative 11/25/16 07:10 WBC RBC Hgb Hct MCV MCH MCHC RDW Plt Count MPV Neut % (Auto) Lymph % (Auto) Mccone % (Auto) Eos % (Auto) Baso % (Auto) Neut # Lymph # Mccone # Eos # Baso # PT 14.6 H INR 1.3 Sodium Potassium Chloride Carbon Dioxide Anion Gap BUN Creatinine Est GFR ( Amer) Est GFR (Non-Af Amer) POC Glucose (mg/dL) Random Glucose Calcium Phosphorus Magnesium Total Bilirubin AST ALT Alkaline Phosphatase Total Protein Albumin Globulin Albumin/Globulin Ratio Blood Type Antibody Screen Assessment & Plan - Assessment and Plan (Free Text) Assessment: 66 yo M PMHx HTN and DM presented to the ED on 11/16 s/p fall via EMS. 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 Cardiology consulted for risk stratification for procedure Plan: -Patient has hx of HTN and DM2 -Echo 10/14/16 EF 46% Overall LV systolic function appears borderline and there is a suggestion of septal hypokinesis -11/15 EKG: sinus tachycardia HR @ 126bpm -Lipid panel: T Cholesterol: 65 LDL: 31 HDL: 25 -HgbA1c: 11.5 -Patient to be started on heparin gtt for b/l UE DVT -Continue current management f/u repeat Echo ordered 11/25 Patient for Stress test Lexiscan this afternoon 11/25 Will risk stratify patient from cardiac standpoint and calculate cardiac risk index after necessary exams are completed Cardiology will continue to follow Case discussed with Dr. Sara Carrillo PGY2 <Jose Ruiz - Last Filed: 12/26/16 07:33> Results - Vital Signs Recent Vital Signs: Last Vital Signs Temp 98.4 F 12/22/16 23:25 Pulse 100 H 12/22/16 23:25 Resp 20 12/22/16 23:25 BP 110/70 12/22/16 23:25 Pulse Ox 99 12/22/16 23:25 - Labs Result Diagrams: 12/21/16 06:30 12/21/16 06:30 Attending/Attestation - Attestation I have personally seen and examined this patient.: Yes I have fully participated in the care of the patient.: Yes I have reviewed all pertinent clinical information: Yes Notes (Text): 12/26/16 07:32 conition guarded ef borderline stable non compliant in past will follow
[2016-11-25] MEDS ORDERED: Peg-Electrolyte Oral Soln 4L (Golytely) PO ONE (10:00)
[2016-11-25] MEDS ORDERED: Lactated Ringer's 1,000 ML IV SCH (10:00)
[2016-11-25 10:29] LABS: INR 1.3
[2016-11-25] MEDS ORDERED: Aminophylline 25 mg/ml Inj ONE (12:23)
--- NOTE | 2016-11-25 13:51 | CP.PCM.PN ---
<Jose Coffman - Last Filed: 11/25/16 18:38> Subjective - Date & Time of Evaluation Date of Evaluation: 11/25/16 Time of Evaluation: 07:00 - Subjective Subjective: Patient was seen and examined this morning at bedside. Patient was no in acute distress and had no complaints. He said he felt well. He was aware that surgery is scheduled for tomorrow morning. He denied chest pain, shortness of breath, bleeding, abdominal pain, diarrhea, nausea, vomiting, constipation, fever, chills, lack of appetite, or insomnia. Objective - Vital Signs/Intake and Output Vital Signs (last 24 hours): Temp Pulse Resp BP Pulse Ox 98.4 F 92 H 20 103/72 97 11/25/16 07:35 11/25/16 09:00 11/25/16 07:35 11/25/16 07:35 11/25/16 07:35 Intake and Output: 11/25/16 11/25/16 06:59 18:59 Intake Total 840 Output Total 900 Balance -60 - Medications Medications: Current Medications Dextrose (Dextrose 50% Inj) 0 ml IV STAT PRN; Protocol PRN Reason: Hyglycemia Protocol Last Admin: 11/18/16 06:21 Dose: 50 ml Famotidine (Pepcid) 20 mg IVP Q12 [facility] Last Admin: 11/25/16 09:10 Dose: 20 mg Imipenem/Cilastatin Sodium 500 (mg/ Sodium Chloride) 100 mls @ 100 mls/hr IVPB Q6H DOREEN Last Admin: 11/25/16 08:59 Dose: 100 mls/hr Metronidazole (Flagyl) 500 mg in 100 mls @ 100 mls/hr IVPB Q8H DOREEN Last Admin: 11/25/16 02:26 Dose: 100 mls/hr Fluconazole (Diflucan Iv 100 Mg/50 Ml Ns) 50 mls @ 100 mls/hr IVPB DAILY [facility] Last Admin: 11/24/16 09:28 Dose: 100 mls/hr Lactated Ringer's (Lactated Ringer's) 1,000 mls @ 100 mls/hr IV .Q10H [facility] Last Admin: 11/25/16 10:07 Dose: 100 mls/hr Insulin Aspart (Novolog) 0 unit SC ACHS DOREEN PRN Reason: Protocol Last Admin: 11/25/16 08:11 Dose: Not Given Insulin Detemir (Levemir) 15 unit SC DAILY [facility] Last Admin: 11/24/16 09:28 Dose: 15 unit Ondansetron HCl (Zofran Inj) 4 mg IVP Q6H PRN PRN Reason: Nausea/Vomiting Potassium Phos/Sodium Phos (Neutra-Phos) 1 pkt PO TID [facility] Stop: 11/25/16 23:59 Last Admin: 11/25/16 09:30 Dose: 1 pkt Saccharomyces Boulardii (Florastor) 250 mg PO BID [facility] Last Admin: 11/25/16 09:10 Dose: 250 mg - Labs Labs: 11/25/16 07:10 11/25/16 07:10 PT 14.4 SECONDS (9.7-12.2) H 11/25/16 10:10 INR 1.3 11/25/16 10:10 APTT 41 SECONDS (21-34) H 11/25/16 10:10 - Constitutional Appears: No Acute Distress - Head Exam Head Exam: NORMAL INSPECTION - Eye Exam Eye Exam: Normal appearance - ENT Exam ENT Exam: Mucous Membranes Moist - Neck Exam Neck Exam: Normal Inspection - Respiratory Exam Respiratory Exam: Clear to Ausculation Bilateral, NORMAL BREATHING PATTERN - Cardiovascular Exam Cardiovascular Exam: REGULAR RHYTHM, +S1, +S2. absent: Murmur - GI/Abdominal Exam GI & Abdominal Exam: Soft, Hyperactive Bowel Sounds, Normal Bowel Sounds. 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 Due to lovenox longer half life, therapeutic lovenox was discontinued and heparin was started. Heparin 8000u iv bolus was given and heparin drip was started at 18u/kg/hr. This drip will be stopped at exactly 5am, 4 hours before surgery. 11/25: Cardiology consulted for risk stratification for procedure. Stress test was normal. ECHO results pending. 11/25: c.diff negative. f/u ova and parasite. 11/25: per dr Garcia, megace was discontinued as it can cause blood clots. megace was originally ordered to stimulate appetite. 11/22: Pt advanced to solid food diet today. Surgery planning for OR 11/26. Added marinol to increased appetite per surgery request. 11/21: Pt s/p cystoscopy today. Patient found to have invasion to dome of urinary bladder. Surgery to plan for surgery some time next week 11/21: GI has signed off. 11/21: Per GI, Abdominal U/S obtained to rule out SV thrombosis given presence of gastroesopahgeal varices seen on endoscopic examination -> Abdominal U/S: 1. Hepatocellular disease without focal hepatic mass. 2. Patent portal venous system including splenic vein. 3. Cholelithiasis. No sonographic evidence of acute cholecystitis. 4. Cystic mass in the head of the pancreas. Remainder the pancreas is not visualized. 11/21: PICC placed today by IR DR Armando. 11/20: Dr Benji Jon will do cystoscopy tomorrow as surgery believes a cystoscopy could aid in surgical planning, surgery concerned about air in bladder and the way the mass abuts the bladder as seen on CT. Patient will be npo after midnight. 11/20: s/p upper EUS: "LA grade C erosive esophagitis. 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 75mm x 65mm psedocyst seen in pancreatic body, fine needle aspiration for fluid performed. Varices were visualized endosonographically in fundus of stomach". Will f/u cystology and CEA levels. 11/20: s/p venous duplex of upper extremities: "right: acute thrombosis of right subclavian, axillary and brachial veins with severe reduction of venous return. left: acute thrombosis of left cephatlic vein with severe reduction of venous return". Therapeutic lovenox started -> 90mg q12 sc. 11/20: s/p venous duplex of lower extremeties: negative 11/20: PICC line placed today. Magnesium was low, repleted. 11/19: GI to perform EUS tomorrow. Advanced diet to liquid - will advance as tolerated. B/l upper and lower extremity duplex scans were ordered today. 11/18: Patient is s/p EGD/Colonoscopy. A 10cm partially obstructing sigmoid mass was seen and biopsied. Multiple polyps were seen and resected. Heme/Onc, Dr Garcia has been consulted, we will follow up with his recommendations. 11/17: Still having the diarrhea. The C diff studies are pending. He will need to be on IV Flagyl. 11/16: Pending CT of abd / pelvis results. The appears to be a possible pancreatic area mass as well as colonic mass. The night team has already ordered tumor markers as well as stool studies. Abx were also ordered and the WBC decreased. CT chest abdomen and pelvis findings as noted: suspected sigmoid and proximal rectum mass lesion without evidence of high grade bowel obstruction; suspected abscess formation; cystic mass lesion noted at pancreas with surrounding fat stranding of the pancreatic tail; large gallstones without evidence of acute cholecystitis GI consult (Dr. Srivastava)---> Help appreciated General Surgery Consult (Dr. Amin)----> Help appreciated Urology Consult ( Dr. Jon)----> Help appreciated * All consulted due to unofficial read of CT Scan of chest/abdomen/pelvis: Intra -abdominal abscess/malignancy and bladder wall thickening * Still pending official radiologist report Potassium chloride/dextrose/sodium cl @ 100ml/hr iv q10 Stool culture negative for salmonella, shigella, campylobacter Stool leukocytes negative Ova and parasites not seen C. diffi toxin AB negative (2) Syncope - possibly secondary to ongoing diarrhea 11/19: Discontinued lowe, started a voiding trial today. 11/17: Feeling better today, continue with the IVF. He is tolerating the the liquid diet 11/16: Continue with the IVF, he reports diarrhea, also the patient reports poor PO intake. He looks dry on exam. He recently had an echo done on 10/[address] head CT was negative Also stop the blood pressure medication (3) Gram - negative positive blood cultures 11/25: Blood cultures are negative after [address] Burns, con't tx for minimum of 14 days; Primaxin and Flagyl both started on 11/17. 11/19: HIV screen negative, Hep panel negative. Bands 26 today. 11/18: HIV 1&2 antibodies, Hep panel were ordered today. ID has been consulted, Dr Burns, we will follow his recommendations. 11/17: Changed to IV Primaxin 500mg IV Q6 Follow cultures. Currently blood pressure and HR stable. Nonfebrile. Continue with the IVF, monitor lowe outputs (4) Urinary tract infection 11/25: Urine cultures are negative from 11/18 11/18: repeat urine culture ordered today as previous urine culture came back contaminated UA: Leukocytes esterase : 2+ WBC: 187 Yeast Budding: (positive) * Fluconazole 100mg IVPB daily (5) Metabolic acidosis, increased anion gap Improving with IVF Secondary to ketosis On admission: 33 After NS 0.9% @ 100mls/hr: 20 (6) Hypertension 11/16: Will hold lisnopril at this time (7) Uncontrolled diabetes mellitus 11/25: fluctuations in sugar are improved, will continue current insulin regimen and continue to monitor 11/23: episode of hypoglycemia, juice and sandwich given, then given 50 ml of Dextrose 50% iv Recent HgbA1C: 9.0 (09/28/16) Accuchecks ISS Levemir 15 units Hold glipizide (8) Ulcerated mucosa of esophagus 11/18: Per endoscopy report -> Ulcerated mucosa in the lower third of the esophagus was seen and biopsied. Patient is on pepcid iv 20mg q12. (9) Cystic mass lesion noted at pancreas with surrounding fat stranding of the pancreatic tail 11/25: Per laboratory coordinator, EUS performed on 11/20 sampled pancreatic cyst fluid with diagnostic studies ordered for ptf amylase and ptf CEA only 11/20: Upper EUS performed today: "75mm x 65mm psedocyst seen in pancreatic body , fine needle aspiration for fluid performed 11/18: CT abd/pelvis shows cystic mass lesion at pancreas with fat stranding of pacreatic tail. Lipase level and lipid panel was ordered today. 11/17: CA 19-9 wnl (10) Cholelithiasis 11/18: CT abd/pelvis shows large gallstones without evidence of acute cholecystitis. (11) Hyoocalcemia calcium 6.6, corrected is 8.5 monitor (12) Anemia 2/2 Anemia of Chronic Disease 11/25: Will start Ferrlecit 125mg iv daily after surgical procedure 11/25: Hgb stable at 8.6. (13) Prophylactic measure 11/25: Dr Ruiz consulted for risk stratification for procedure. Patient to have stress test lexiscan today and repeat echo. Will follow up cardiac risk index after cardiology stratifies risk. SCD (Contraindicated due to LE edema) Pepcid IV 20mg Q12H lovenox should be stopped 7/ after AM dose and patient to be put on heparin drip which should be discontinued 3 hours before surgery <Bobo Harris - Last Filed: 11/27/16 06:32> Objective - Vital Signs/Intake and Output Vital Signs (last 24 hours): Temp Pulse Resp BP Pulse Ox 98.2 F 99 H 15 162/67 H 95 11/27/16 04:00 11/27/16 05:14 11/27/16 05:14 11/27/16 05:14 11/27/16 05:14 Intake and Output: 11/26/16 11/27/16 18:59 06:59 Intake Total 3482 1875 Output Total 220 330 Balance 3262 1545 - Medications Medications: Current Medications Dextrose (Dextrose 50% Inj) 0 ml IV STAT PRN; Protocol PRN Reason: Hyglycemia Protocol Last Admin: 11/18/16 06:21 Dose: 50 ml Famotidine (Pepcid) 20 mg IVP Q12 [facility] Last Admin: 11/26/16 22:54 Dose: 20 mg Hydromorphone HCl (Dilaudid) 0.5 mg IVP Q4H PRN PRN Reason: Pain, moderate (4-7) Last Admin: 11/26/16 23:28 Dose: 0.5 mg Imipenem/Cilastatin Sodium 500 (mg/ Sodium Chloride) 100 mls @ 100 mls/hr IVPB Q6H [facility] Last Admin: 11/26/16 20:36 Dose: 100 mls/hr Metronidazole (Flagyl) 500 mg in 100 mls @ 100 mls/hr IVPB Q8H [facility] Last Admin: 11/26/16 17:17 Dose: 100 mls/hr Fluconazole (Diflucan Iv 100 Mg/50 Ml Ns) 50 mls @ 100 mls/hr IVPB DAILY [facility] Last Admin: 11/26/16 10:24 Dose: 50 mls Heparin Sodium/Sodium Chloride (Heparin 52028 Units/250ml 1/2 Normal Saline) 25 ,000 units in 250 mls @ 16.411 mls/hr IV .[id number] PRN; Protocol; 18 UNITS/KG/HR PRN Reason: PROTOCOL Last Admin: 11/25/16 17:00 Dose: 18 units/kg/hr, 16.411 mls/hr Lactated Ringer's (Lactated Ringer's) 1,000 mls @ 125 mls/hr IV .Q8H [facility] Last Admin: 11/26/16 22:52 Dose: Not Given Insulin Aspart (Novolog) 0 unit SC ACHS DOREEN PRN Reason: Protocol Last Admin: 11/26/16 22:42 Dose: Not Given Insulin Detemir (Levemir) 15 unit SC DAILY [facility] Last Admin: 11/24/16 09:28 Dose: 15 unit Ondansetron HCl (Zofran Inj) 4 mg IVP Q6H PRN PRN Reason: Nausea/Vomiting Saccharomyces Boulardii (Florastor) 250 mg PO BID [facility] Last Admin: 11/26/16 17:16 Dose: 250 mg - Labs Labs: 11/26/16 12:10 11/26/16 06:45 PT 15.2 SECONDS (9.7-12.2) H 11/26/16 06:45 INR 1.3 11/26/16 06:45 APTT 43 SECONDS (21-34) H D 11/26/16 06:45 Attending/Attestation - Attestation I have personally seen and examined this patient.: Yes I have fully participated in the care of the patient.: Yes I have reviewed all pertinent clinical information, including history, physical exam and plan: Yes
[2016-11-25] MEDS: Fluconazole IV 100mg/50 ml NS 50 ML IVPB SCH (14:27)
--- NOTE | 2016-11-25 15:02 | CP.PCM.CON ---
History of Present Illness - History of Present Illness History of Present Illness: Palliative consult Requested by Jose IVERSON Reason: Goals of care discussion Patient is a 66 yo man admitted from home after collapsing. Patient reports complete black out, denies headache, chest pain SOB or fever. After the series of diagnostic studies after the admission patient was diagnosed with sigmoid cancer. Colectomy Sx scheduled for tomorrow morning. Patient states was able to ambulate at home prior the incident, but lately was feeling dizzy and unsteady on his feet. Patient reports noticing changes in his bowel habits and stool consistency fro diarrhea to regular. Patient remains mostly on the bed rest. WBC 7.6, Hb 8.6. Alb 1.9. Patient started on IV antibiotics as per Doctor Katy. BP 103/72, HR 92, O2Sat 97 % RA PMH: HTN, HDL, DM Soc. Hx: single, has children in [place], lives with girl friend, denies smoking , alkohol of elicit drugs use Fam Hx: Mother from breast CA, father dies from uncontrolled DM Review of Systems - Constitutional Constitutional: Weakness - EENT Eyes: absent: As Per HPI, Blind Spots, Blurred Vision, Change in Vision, Decreased Night Vision, Diplopia, Discharge, Dry Eye, Exophthalmos, Floaters, Irritation, Itchy Eyes, Loss of Peripheral Vision, Pain, Photophobia, Requires Corrective Lenses, Sees Flashes, Spots in Vision, Tunnel Vision, Other Visual Disturbances, Loss of Vision, Other Ears: absent: As Per HPI, Decreased Hearing, Ear Discharge, Ear Pain, Tinnitus, Abnormal Hearing, Disequilibrium, Dizziness, Other Nose/Mouth/Throat: absent: As Per HPI, Epistaxis, Nasal Congestion, Nasal Discharge, Nasal Obstruction, Nasal Trauma, Nose Pain, Post Nasal Drip, Sinus Pain, Sinus Pressure, Bleeding Gums, Change in Voice, Dental Pain, Dry Mouth, Dysphagia, Halitosis, Hoarsness, Lip Swelling, Mouth Lesions, Mouth Pain, Odynophagia, Sore Throat, Throat Swelling, Tongue Swelling, Facial Pain, Neck Pain, Neck Mass, Other - Cardiovascular Cardiovascular: Lightheadedness, Pedal Edema, Syncope - Respiratory Respiratory: Dyspnea on Exertion - Gastrointestinal Gastrointestinal: Change in Bowel Habits, Change in Stool Character - Genitourinary Genitourinary: absent: As Per HPI, Change in Urinary Stream, Difficulty Urinating, Dysuria, Flank Pain, Hematuria, Pyuria, Nocturia, Urinary Incontinence, Urinary Frequency, Urinary Hesitance, Urinary Urgency, Voiding Freq/Small Amts, Freq UTI, Hx Renal/Bladder Calculi, Hx /Renal Surgery, Bladder Distension, Other - Reproductive: Male Reproductive:Male: As Per HPI, Prepubesant, Dyspareunia, Genital Lesions, Genital Pruritis, Pelvic Pain, Sexual Dysfunction, Penile Discharge, Genital Odor, Impotence, On ED Medications, Penile Implant, Other - Musculoskeletal Musculoskeletal: Muscle Weakness - Integumentary Integumentary: Swelling - Neurological Neurological: Dizziness, Syncope - Psychiatric Psychiatric: absent: As Per HPI, Abnormal Sleep Pattern, Anhedonia, Anxiety, Auditory Hallucinations, Behavioral Changes, Change in Appetite, Change in Libido, Confusion, Depression, Difficulty Concentrating, Hallucinations, Homicidal Ideation, Hopelessness, Irritability, Memory Loss, Mood Swings, Panic Attacks, Paranoia, Suicidal Ideation, Visual Hallucinations, Tactile Hallucinations, Other - Endocrine Endocrine: absent: As Per HPI, Change in Body Appearance, Change in Libido, Cold Intolorance, Deepening of Voice, Excessive Sweating, Fatigue, Flushing, Heat Intolorance, Increase in Ring/Shoe/Hat Size, Palpitations, Polydipsia, Polyphagia, Polyuria, Other - Hematologic/Lymphatic Hematologic: absent: As Per HPI, Easy Bleeding, Easy Bruising, Lymphadenopathy, Other Past Patient History - Past Medical History & Family History Past Medical History?: No - Past Social History Smoking Status: Never Smoked - CARDIAC Hx Hypertension: Yes - PULMONARY Hx Respiratory Disorders: No - NEUROLOGICAL Hx Neurological Disorder: No - HEENT Hx HEENT Problems: No - RENAL Hx Chronic Kidney Disease: No - ENDOCRINE/METABOLIC Hx Diabetes Mellitus Type 2: Yes - HEMATOLOGICAL/ONCOLOGICAL Hx Blood Disorders: No Hx Blood Transfusions: No - INTEGUMENTARY Hx Dermatological Problems: No - MUSCULOSKELETAL/RHEUMATOLOGICAL Hx Falls: Yes - GASTROINTESTINAL Hx Gastrointestinal Disorders: No - GENITOURINARY/GYNECOLOGICAL Hx Genitourinary Disorders: No - PSYCHIATRIC Hx Substance Use: No - SURGICAL HISTORY Hx Surgeries: Yes - ANESTHESIA Hx Anesthesia: Yes Hx Anesthesia Reactions: No Hx Malignant Hyperthermia: No Meds Allergies/Adverse Reactions: Allergies Allergy/AdvReac Type Severity Reaction Status Date / Time No Known Allergies Allergy Verified 11/15/16 21:27 - Medications Medications: Current Medications Dextrose (Dextrose 50% Inj) 0 ml IV STAT PRN; Protocol PRN Reason: Hyglycemia Protocol Last Admin: 11/18/16 06:21 Dose: 50 ml Famotidine (Pepcid) 20 mg IVP Q12 [facility] Last Admin: 11/25/16 09:10 Dose: 20 mg Imipenem/Cilastatin Sodium 500 (mg/ Sodium Chloride) 100 mls @ 100 mls/hr IVPB Q6H [facility] Last Admin: 11/25/16 08:59 Dose: 100 mls/hr Metronidazole (Flagyl) 500 mg in 100 mls @ 100 mls/hr IVPB Q8H [facility] Last Admin: 11/25/16 14:39 Dose: Not Given Fluconazole (Diflucan Iv 100 Mg/50 Ml Ns) 50 mls @ 100 mls/hr IVPB DAILY [facility] Last Admin: 11/25/16 14:27 Dose: 100 mls/hr Lactated Ringer's (Lactated Ringer's) 1,000 mls @ 100 mls/hr IV .Q10H [facility] Last Admin: 11/25/16 10:07 Dose: 100 mls/hr Insulin Aspart (Novolog) 0 unit SC ACHS [facility] PRN Reason: Protocol Last Admin: 11/25/16 14:40 Dose: Not Given Insulin Detemir (Levemir) 15 unit SC DAILY [facility] Last Admin: 11/24/16 09:28 Dose: 15 unit Ondansetron HCl (Zofran Inj) 4 mg IVP Q6H PRN PRN Reason: Nausea/Vomiting Potassium Phos/Sodium Phos (Neutra-Phos) 1 pkt PO TID [facility] Stop: 11/25/16 23:59 Last Admin: 11/25/16 14:39 Dose: Not Given Saccharomyces Boulardii (Florastor) 250 mg PO BID [facility] Last Admin: 11/25/16 09:10 Dose: 250 mg Physical Exam - Constitutional Appears: No Acute Distress - Head Exam Head Exam: ATRAUMATIC, NORMAL INSPECTION, NORMOCEPHALIC - Eye Exam Eye Exam: EOMI, Normal appearance, PERRL Pupil Exam: NORMAL ACCOMODATION, PERRL - ENT Exam ENT Exam: Mucous Membranes Moist, Normal Exam - Neck Exam Neck exam: Positive for: Normal Inspection - Respiratory Exam Respiratory Exam: Decreased Breath Sounds, NORMAL BREATHING PATTERN - Cardiovascular Exam Cardiovascular Exam: Tachycardia, REGULAR RHYTHM - GI/Abdominal Exam GI & Abdominal Exam: Normal Bowel Sounds - Rectal Exam Rectal Exam: Deferred - Extremities Exam Extremities exam: Positive for: pedal edema - Back Exam Back exam: NORMAL INSPECTION - Neurological Exam Neurological exam: Alert, Oriented x3 - Psychiatric Exam Psychiatric exam: Normal Affect, Normal Mood - Skin Skin Exam: Pallor Results - Vital Signs Recent Vital Signs: Last Vital Signs Temp 98.4 F 11/25/16 07:35 Pulse 92 H 11/25/16 09:00 Resp 20 11/25/16 07:35 BP 103/72 11/25/16 07:35 Pulse Ox 97 11/25/16 07:35 - Labs Result Diagrams: 11/25/16 07:10 11/25/16 07:10 Labs: Laboratory Results - last 24 hr 11/24/16 11/24/16 11/25/16 17:31 21:25 03:29 WBC RBC Hgb Hct MCV MCH MCHC RDW Plt Count MPV Neut % (Auto) Lymph % (Auto) [place] % (Auto) Eos % (Auto) Baso % (Auto) Neut # Lymph # [place] # Eos # Baso # PT INR APTT Sodium Potassium Chloride Carbon Dioxide Anion Gap BUN Creatinine Est GFR ( Amer) Est GFR (Non-Af Amer) POC Glucose (mg/dL) 79 124 H 42 L Random Glucose Calcium Phosphorus Magnesium Total Bilirubin AST ALT Alkaline Phosphatase Total Protein Albumin Globulin Albumin/Globulin Ratio C. difficile Ag & Toxin Blood Type Antibody Screen 11/25/16 11/25/16 11/25/16 03:54 06:16 07:10 WBC 7.6 RBC 3.98 L Hgb 8.6 L Hct 27.1 L MCV 68.1 L MCH 21.6 L MCHC 31.8 L RDW 20.9 H Plt Count 145 MPV 9.3 Neut % (Auto) 74.5 Lymph % (Auto) 18.2 L [place] % (Auto) 6.8 Eos % (Auto) 0.3 Baso % (Auto) 0.2 Neut # 5.7 Lymph # 1.4 [place] # 0.5 Eos # 0.0 Baso # 0.0 PT INR APTT Sodium Potassium Chloride Carbon Dioxide Anion Gap BUN Creatinine Est GFR ( Amer) Est GFR (Non-Af Amer) POC Glucose (mg/dL) 88 116 H Random Glucose Calcium Phosphorus Magnesium Total Bilirubin AST ALT Alkaline Phosphatase Total Protein Albumin Globulin Albumin/Globulin Ratio C. difficile Ag & Toxin Blood Type Antibody Screen 11/25/16 11/25/16 11/25/16 07:10 07:10 07:10 WBC RBC Hgb Hct MCV MCH MCHC RDW Plt Count MPV Neut % (Auto) Lymph % (Auto) [place] % (Auto) Eos % (Auto) Baso % (Auto) Neut # Lymph # [place] # Eos # Baso # PT 14.6 H INR 1.3 APTT Sodium 136 Potassium 3.8 Chloride 102 Carbon Dioxide 27 Anion Gap 11 BUN 10 Creatinine 0.5 L Est GFR ( Amer) > 60 Est GFR (Non-Af Amer) > 60 POC Glucose (mg/dL) Random Glucose 102 Calcium 6.5 L Phosphorus 3.1 Magnesium 1.5 L Total Bilirubin 0.5 AST 21 ALT 27 Alkaline Phosphatase 144 H D Total Protein 4.4 L Albumin 1.6 L Globulin 2.8 Albumin/Globulin Ratio 0.6 L C. difficile Ag & Toxin Blood Type O POSITIVE Antibody Screen Negative 11/25/16 11/25/16 10:10 10:10 WBC RBC Hgb Hct MCV MCH MCHC RDW Plt Count MPV Neut % (Auto) Lymph % (Auto) [place] % (Auto) Eos % (Auto) Baso % (Auto) Neut # Lymph # [place] # Eos # Baso # PT 14.4 H INR 1.3 APTT 41 H Sodium Potassium Chloride Carbon Dioxide Anion Gap BUN Creatinine Est GFR ( Amer) Est GFR (Non-Af Amer) POC Glucose (mg/dL) Random Glucose Calcium Phosphorus Magnesium Total Bilirubin AST ALT Alkaline Phosphatase Total Protein Albumin Globulin Albumin/Globulin Ratio C. difficile Ag & Toxin Negative Blood Type Antibody Screen Assessment & Plan - Assessment and Plan (Free Text) Plan: Palliative consult Code status Full Code, there is no advance directive on the chart, PPS 30% I reviewed medical records, all diagnostic studies, examined and interviewed patient in the bed. Patient is alert, oriented X 3 in acute distress with affect that is appropriate. Skin is pale with dependent edema to LEs; Alb 1.9. Breath sounds normal, no SOB. Heart in ST, HR 92. Abdomen distended, patient denies abdominal pain, tolerates clear liquid diet well. Patient states feeling weak and dizzy , unable to ambulate. BP 103/72, O2Sat 97 RA. I elicited his knowledge regarding the diagnosis and his values in life. Patient is fully aware of diagnosis. Reports being anxious about the surgery . Patient had some questions regarding the usual pathway any Sx goes trough. His expectations are directed to the post op time and recovery. Patient is reserved with his expectations. He is aware that there was a long path of recovery. His goal is to recover well, and be able to eat and walk. I supported his attitude and reassured him of his safety. This time I did not bring up the Code status subject as it would be too much for the patient to take , as he was anxious already due to pending Sx. The Code status would be suspended prior to OR anyway Impression * This is newly diagnosed colon CA patient with pending colectomy sx in AM * Patient is anxious due to Sx but is ready * His expectations are guarded * Patient's goal is to recover to the level of normal functioning Suggestion * Supportive care * I will fallow up with patient in post op time to further discuss goals of care and Code status * Thank you for consulting Palliative Care
--- NOTE | 2016-11-25 15:51 | CP.PCM.PN ---
Subjective - Date & Time of Evaluation Date of Evaluation: 11/25/16 Time of Evaluation: 07:00 - Subjective Subjective: Pt S&E at bedside. No acute events over night. Patient to go for stress test today. Will begin bowel prep after. VSS. Objective - Vital Signs/Intake and Output Vital Signs (last 24 hours): Temp Pulse Resp BP Pulse Ox 98.4 F 97 H 20 124/83 97 11/25/16 15:44 11/25/16 15:44 11/25/16 15:44 11/25/16 15:44 11/25/16 15:44 Intake and Output: 11/25/16 11/25/16 06:59 18:59 Intake Total 840 490 Output Total 900 225 Balance -60 265 - Medications Medications: Current Medications Dextrose (Dextrose 50% Inj) 0 ml IV STAT PRN; Protocol PRN Reason: Hyglycemia Protocol Last Admin: 11/18/16 06:21 Dose: 50 ml Famotidine (Pepcid) 20 mg IVP Q12 [facility] Last Admin: 11/25/16 09:10 Dose: 20 mg Heparin Sodium (Porcine) (Heparin) 8,000 units 80 units/kg (8000 units) IV ONCE ONE Stop: 11/25/16 15:48 Imipenem/Cilastatin Sodium 500 (mg/ Sodium Chloride) 100 mls @ 100 mls/hr IVPB Q6H [facility] Last Admin: 11/25/16 08:59 Dose: 100 mls/hr Metronidazole (Flagyl) 500 mg in 100 mls @ 100 mls/hr IVPB Q8H [facility] Last Admin: 11/25/16 14:39 Dose: Not Given Fluconazole (Diflucan Iv 100 Mg/50 Ml Ns) 50 mls @ 100 mls/hr IVPB DAILY [facility] Last Admin: 11/25/16 14:27 Dose: 100 mls/hr Lactated Ringer's (Lactated Ringer's) 1,000 mls @ 100 mls/hr IV .Q10H [facility] Last Admin: 11/25/16 10:07 Dose: 100 mls/hr Heparin Sodium/Sodium Chloride (Heparin 36660 Units/250ml 1/2 Normal Saline) 25 ,000 units in 250 mls @ 16.411 mls/hr IV .[id number] PRN; Protocol; 18 UNITS/KG/HR PRN Reason: PROTOCOL Insulin Aspart (Novolog) 0 unit SC ACHS [facility] PRN Reason: Protocol Last Admin: 11/25/16 14:40 Dose: Not Given Insulin Detemir (Levemir) 15 unit SC DAILY [facility] Last Admin: 11/24/16 09:28 Dose: 15 unit Ondansetron HCl (Zofran Inj) 4 mg IVP Q6H PRN PRN Reason: Nausea/Vomiting Potassium Phos/Sodium Phos (Neutra-Phos) 1 pkt PO TID [facility] Stop: 11/25/16 23:59 Last Admin: 11/25/16 14:39 Dose: Not Given Saccharomyces Boulardii (Florastor) 250 mg PO BID [facility] Last Admin: 11/25/16 09:10 Dose: 250 mg - Labs Labs: 11/25/16 07:10 11/25/16 07:10 PT 14.4 SECONDS (9.7-12.2) H 11/25/16 10:10 INR 1.3 11/25/16 10:10 APTT 41 SECONDS (21-34) H 11/25/16 10:10 - Constitutional Appears: No Acute Distress - Head Exam Head Exam: NORMOCEPHALIC - Eye Exam Eye Exam: Normal appearance - ENT Exam ENT Exam: Mucous Membranes Moist - Respiratory Exam Respiratory Exam: NORMAL BREATHING PATTERN - Cardiovascular Exam Cardiovascular Exam: +S1, +S2 - GI/Abdominal Exam GI & Abdominal Exam: Soft, Tenderness - Neurological Exam Neurological Exam: Alert, Awake, Oriented x3 - Psychiatric Exam Psychiatric exam: Normal Mood - Skin Skin Exam: Dry, Intact, Warm Assessment and Plan - Assessment and Plan (Free Text) Assessment: 66 M w/ 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 Brennan Whitaker PGY-2
[2016-11-25] MEDS: Heparin25000 units/250ml 1/2NS 25,000 UNITS/250 ML BAG IV PRN (17:00)
[2016-11-25] MEDS: Lactated Ringer's 1,000 ML IV SCH (21:39)
[2016-11-26] MEDS: metroNIDAZOLE IV 500 mg/100 ml 500 MG/100 ML BAG IVPB SCH ×3 (02:29→17:17)
[2016-11-26] MEDS: Lactated Ringer's 1,000 ML IV SCH ×3 (03:52→22:52)
[2016-11-26 06:56] LABS: BASO % 0.2 % (0.0-2.0); EOS % 0.2 % (0.0-4.0); HEMATOCRIT 25.9 % (35.0-51.0); LYMPH % 14.7 % (20.0-40.0); MEAN CELL VOLUME 68.3 fL (80.0-94.0); MEAN CORPUSCULAR HEMOGLOBIN 21.8 pg (27.0-31.0); MEAN CORPUSCULAR HGB CONC 31.9 g/dL (33.0-37.0); MEAN PLATELET VOLUME 9.1 fL (7.2-11.7); MONO # 0.5 K/uL (0.0-0.8); WHITE BLOOD COUNT 7.1 K/uL (4.8-10.8)
[2016-11-26 06:57] LABS: INR 1.3
[2016-11-26 07:24] LABS: ALB/GLOB RATIO 0.6 (1.0-2.1); ALKALINE PHOSPHATASE 149 U/L (38-126); ALT/SGPT 31 U/L (21-72); AST/SGOT 17 U/L (17-59); BILIRUBIN,TOTAL 0.6 mg/dL (0.2-1.3); BLOOD UREA NITROGEN 8 mg/dL (9-20); CALCIUM 6.6 mg/dl (8.6-10.4); CARBON DIOXIDE 26 mmol/L (22-30); CHLORIDE 102 mmol/L (98-107); GFR AFRICAN-AMERICAN > 60; GLUCOSE,RANDOM 166 mg/dL (75-110); MAGNESIUM 1.7 mg/dL (1.6-2.3); PHOSPHOROUS 3.1 mg/dL (2.5-4.5); POTASSIUM 3.4 mmol/L (3.6-5.2); SODIUM 138 mmol/L (132-148); TOTAL PROTEIN 4.4 g/dL (6.3-8.3)
--- NOTE | 2016-11-26 07:48 | CP.PCM.PN ---
<Jose Coffman - Last Filed: 11/26/16 18:09> Subjective - Date & Time of Evaluation Date of Evaluation: 11/26/16 Time of Evaluation: 17:00 - Subjective Subjective: PGY-[address] Bobo Harris's Service: Patient was seen in the ICU s/p surgery to resect his sigmoid mass which is now deferred until a later time. Patient was aware as to why the surgery was halted. He said he feels fatigued but overall well. He had no other complaints. He denied cp, sob, vomiting, diarrhea, bleeding, nausea, fever, chills. Objective - Vital Signs/Intake and Output Vital Signs (last 24 hours): Temp Pulse Resp BP Pulse Ox 98.0 F 101 H 20 102/64 98 11/26/16 04:00 11/26/16 04:18 11/26/16 04:00 11/26/16 04:00 11/26/16 04:00 Intake and Output: 11/26/16 11/26/16 06:59 18:59 Intake Total 1750 Output Total 750 Balance 1000 - Medications Medications: Current Medications Dextrose (Dextrose 50% Inj) 0 ml IV STAT PRN; Protocol PRN Reason: Hyglycemia Protocol Last Admin: 11/18/16 06:21 Dose: 50 ml Famotidine (Pepcid) 20 mg IVP Q12 [facility] Last Admin: 11/25/16 21:31 Dose: 20 mg Ferric Sodium Gluconate Complex (Ferrlecit) 125 mg IVPB DAILY [facility] Stop: 12/05/16 10:01 Imipenem/Cilastatin Sodium 500 (mg/ Sodium Chloride) 100 mls @ 100 mls/hr IVPB Q6H [facility] Last Admin: 11/26/16 03:53 Dose: 100 mls/hr Metronidazole (Flagyl) 500 mg in 100 mls @ 100 mls/hr IVPB Q8H [facility] Last Admin: 11/26/16 02:29 Dose: 100 mls/hr Fluconazole (Diflucan Iv 100 Mg/50 Ml Ns) 50 mls @ 100 mls/hr IVPB DAILY [facility] Last Admin: 11/25/16 14:27 Dose: 100 mls/hr Heparin Sodium/Sodium Chloride (Heparin 51882 Units/250ml 1/2 Normal Saline) 25 ,000 units in 250 mls @ 16.411 mls/hr IV .[id number] PRN; Protocol; 18 UNITS/KG/HR PRN Reason: PROTOCOL Last Admin: 11/25/16 17:00 Dose: 18 units/kg/hr, 16.411 mls/hr Lactated Ringer's (Lactated Ringer's) 1,000 mls @ 125 mls/hr IV .Q8H [facility] Last Admin: 11/26/16 03:52 Dose: 125 mls/hr Insulin Aspart (Novolog) 0 unit SC ACHS [facility] PRN Reason: Protocol Last Admin: 11/25/16 21:24 Dose: Not Given Insulin Detemir (Levemir) 15 unit SC DAILY [facility] Last Admin: 11/24/16 09:28 Dose: 15 unit Ondansetron HCl (Zofran Inj) 4 mg IVP Q6H PRN PRN Reason: Nausea/Vomiting Saccharomyces Boulardii (Florastor) 250 mg PO BID [facility] Last Admin: 11/25/16 17:56 Dose: Not Given - Labs Labs: 11/26/16 06:45 11/25/16 07:10 PT 15.2 SECONDS (9.7-12.2) H 11/26/16 06:45 INR 1.3 11/26/16 06:45 APTT 43 SECONDS (21-34) H D 11/26/16 06:45 - Constitutional Appears: No Acute Distress - Head Exam Head Exam: NORMAL INSPECTION - Eye Exam Eye Exam: Normal appearance - ENT Exam ENT Exam: Mucous Membranes Moist - Neck Exam Neck Exam: Normal Inspection - Respiratory Exam Respiratory Exam: Clear to Ausculation Bilateral, NORMAL BREATHING PATTERN - Cardiovascular Exam Cardiovascular Exam: REGULAR RHYTHM, +S1, +S2. absent: Murmur - GI/Abdominal Exam GI & Abdominal Exam: Soft, Normal Bowel Sounds. absent: Tenderness - Rectal Exam Rectal Exam: Deferred - Extremities Exam Extremities Exam: Normal Capillary Refill. absent: Calf Tenderness Additional comments: 2+ pitting edema b/l from ankles to shins right arm edema > left arm - Neurological Exam Neurological Exam: Alert, Awake - Psychiatric Exam Psychiatric exam: Normal Affect, Normal Mood - Skin Skin Exam: Dry, Intact, Normal Color, Warm Assessment and Plan - Assessment and Plan (Free Text) Assessment: (1) Chronic diarrhea 2/2 10 cm Sigmoid Mass 11/26: Per surgical technology instructor, the surgery today to resect patient's sigmoid mass was halted after it was determined the mass was too large/firm for removal. The patient will be treated with a neoadjuvant with hopes of shrinking the size of the tumor with possible surgery for removal at a later date. Patient was sent to ICU post OR for monitoring. 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 Due to lovenox longer half life, therapeutic lovenox was discontinued and heparin was started. Heparin 8000u iv bolus was given and heparin drip was started at 18u/kg/hr. This drip will be stopped at exactly 5am, 4 hours before surgery. 11/25: Cardiology consulted for risk stratification for procedure. Stress test was normal. ECHO results pending. 11/25: c.diff negative. f/u ova and parasite. 11/25: per dr Garcia, megace was discontinued as it can cause blood clots. megace was originally ordered to stimulate appetite. 11/22: Pt advanced to solid food diet today. Surgery planning for OR 11/26. Added marinol to increased appetite per surgery request. 11/21: Pt s/p cystoscopy today. Patient found to have invasion to dome of urinary bladder. Surgery to plan for surgery some time next week 11/21: GI has signed off. 11/21: Per GI, Abdominal U/S obtained to rule out SV thrombosis given presence of gastroesopahgeal varices seen on endoscopic examination -> Abdominal U/S: 1. Hepatocellular disease without focal hepatic mass. 2. Patent portal venous system including splenic vein. 3. Cholelithiasis. No sonographic evidence of acute cholecystitis. 4. Cystic mass in the head of the pancreas. Remainder the pancreas is not visualized. 11/21: PICC placed today by IR DR Armando. 11/20: Dr Benji Jon will do cystoscopy tomorrow as surgery believes a cystoscopy could aid in surgical planning, surgery concerned about air in bladder and the way the mass abuts the bladder as seen on CT. Patient will be npo after midnight. 11/20: s/p upper EUS: "LA grade C erosive esophagitis. 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 75mm x 65mm psedocyst seen in pancreatic body, fine needle aspiration for fluid performed. Varices were visualized endosonographically in fundus of stomach". Will f/u cystology and CEA levels. 11/20: s/p venous duplex of upper extremities: "right: acute thrombosis of right subclavian, axillary and brachial veins with severe reduction of venous return. left: acute thrombosis of left cephatlic vein with severe reduction of venous return". Therapeutic lovenox started -> 90mg q12 sc. 11/20: s/p venous duplex of lower extremeties: negative 11/20: PICC line placed today. Magnesium was low, repleted. 11/19: GI to perform EUS tomorrow. Advanced diet to liquid - will advance as tolerated. B/l upper and lower extremity duplex scans were ordered today. 11/18: Patient is s/p EGD/Colonoscopy. A 10cm partially obstructing sigmoid mass was seen and biopsied. Multiple polyps were seen and resected. Heme/Onc, Dr Garcia has been consulted, we will follow up with his recommendations. 11/17: Still having the diarrhea. The C diff studies are pending. He will need to be on IV Flagyl. 11/16: Pending CT of abd / pelvis results. The appears to be a possible pancreatic area mass as well as colonic mass. The night team has already ordered tumor markers as well as stool studies. Abx were also ordered and the WBC decreased. CT chest abdomen and pelvis findings as noted: suspected sigmoid and proximal rectum mass lesion without evidence of high grade bowel obstruction; suspected abscess formation; cystic mass lesion noted at pancreas with surrounding fat stranding of the pancreatic tail; large gallstones without evidence of acute cholecystitis GI consult (Dr. Srivastava)---> Help appreciated General Surgery Consult (Dr. Amin)----> Help appreciated Urology Consult ( Dr. Jon)----> Help appreciated * All consulted due to unofficial read of CT Scan of chest/abdomen/pelvis: Intra -abdominal abscess/malignancy and bladder wall thickening * Still pending official radiologist report Potassium chloride/dextrose/sodium cl @ 100ml/hr iv q10 Stool culture negative for salmonella, shigella, campylobacter Stool leukocytes negative Ova and parasites not seen C. diffi toxin AB negative (2) Syncope - possibly secondary to ongoing diarrhea Resolved 11/19: Discontinued lowe, started a voiding trial today. 11/17: Feeling better today, continue with the IVF. He is tolerating the the liquid diet 11/16: Continue with the IVF, he reports diarrhea, also the patient reports poor PO intake. He looks dry on exam. He recently had an echo done on 10/[address] head CT was negative Also stop the blood pressure medication (3) Gram - negative positive blood cultures 11/26: Patient in ICU for monitoring post OR, Bands 12 today, will monitor. 11/25: Blood cultures are negative after [address] Burns, con't tx for minimum of 14 days; Primaxin and Flagyl both started on 11/17. 11/19: HIV screen negative, Hep panel negative. Bands 26 today. 11/18: HIV 1&2 antibodies, Hep panel were ordered today. ID has been consulted, Dr Burns, we will follow his recommendations. 11/17: Changed to IV Primaxin 500mg IV Q6 Follow cultures. Currently blood pressure and HR stable. Nonfebrile. Continue with the IVF, monitor lowe outputs (4) Urinary tract infection 11/25: Urine cultures are negative from 11/18 11/18: repeat urine culture ordered today as previous urine culture came back contaminated UA: Leukocytes esterase : 2+ WBC: 187 Yeast Budding: (positive) * Fluconazole 100mg IVPB daily (5) Metabolic acidosis, increased anion gap Resolved Improving with IVF Secondary to ketosis On admission: 33 After NS 0.9% @ 100mls/hr: 20 (6) Hypertension 11/16: Will hold lisnopril at this time (7) Uncontrolled diabetes mellitus 11/25: fluctuations in sugar are improved, will continue current insulin regimen and continue to monitor 11/23: episode of hypoglycemia, juice and sandwich given, then given 50 ml of Dextrose 50% iv Recent HgbA1C: 9.0 (09/28/16) Accuchecks ISS Levemir 15 units Hold glipizide (8) Ulcerated mucosa of esophagus 11/18: Per endoscopy report -> Ulcerated mucosa in the lower third of the esophagus was seen and biopsied. Patient is on pepcid iv 20mg q12. (9) Cystic mass lesion noted at pancreas with surrounding fat stranding of the pancreatic tail 11/26: Pancreatic cyst FNA negative for malignant cells per cytology report 11/25: Per labelling machine operator, EUS performed on 11/20 sampled pancreatic cyst fluid with diagnostic studies ordered for ptf amylase and ptf CEA only 11/20: Upper EUS performed today: "75mm x 65mm psedocyst seen in pancreatic body , fine needle aspiration for fluid performed 11/18: CT abd/pelvis shows cystic mass lesion at pancreas with fat stranding of pacreatic tail. Lipase level and lipid panel was ordered today. 11/17: CA 19-9 wnl (10) Cholelithiasis 11/18: CT abd/pelvis shows large gallstones without evidence of acute cholecystitis. (11) Hyoocalcemia calcium 6.6, corrected is 8.5 monitor (12) Anemia 2/2 Anemia of Chronic Disease 11/26: After discussing with Heme/Onc Dr Garcia, since Ferritin is normal ferrlecit will not provide much benefit, will discontinue 11/25: Will start Ferrlecit 125mg iv daily after surgical procedure 11/25: Hgb stable at 8.6. (13) Right Arm Deep Vein Thrombosis 11/26: Per surgery, plan is to restart anticoagulant tomorrow morning (14) Abnormal Stress Test 11/25: Nuclear Stress Test: Defect in mid-anteroseptal wall, defect in basal inferoseptal wall, fixed apical defect old [place], small defect inferior wall 11/25: ECHO: left ventricle systolic function is normal. EF is 50-55%. (15) Prophylactic measure SCD (Contraindicated due to LE edema) Pepcid IV 20mg Q12H lovenox should be stopped 11/25 after AM dose and patient to be put on heparin drip which should be discontinued 3 hours before surgery <Bobo Harris - Last Filed: 11/27/16 06:31> Objective - Vital Signs/Intake and Output Vital Signs (last 24 hours): Temp Pulse Resp BP Pulse Ox 98.2 F 99 H 15 162/67 H 95 11/27/16 04:00 11/27/16 05:14 11/27/16 05:14 11/27/16 05:14 11/27/16 05:14 Intake and Output: 11/26/16 11/27/16 18:59 06:59 Intake Total 3482 1875 Output Total 220 330 Balance 3262 1545 - Medications Medications: Current Medications Dextrose (Dextrose 50% Inj) 0 ml IV STAT PRN; Protocol PRN Reason: Hyglycemia Protocol Last Admin: 11/18/16 06:21 Dose: 50 ml Famotidine (Pepcid) 20 mg IVP Q12 [facility] Last Admin: 11/26/16 22:54 Dose: 20 mg Hydromorphone HCl (Dilaudid) 0.5 mg IVP Q4H PRN PRN Reason: Pain, moderate (4-7) Last Admin: 11/26/16 23:28 Dose: 0.5 mg Imipenem/Cilastatin Sodium 500 (mg/ Sodium Chloride) 100 mls @ 100 mls/hr IVPB Q6H [facility] Last Admin: 11/26/16 20:36 Dose: 100 mls/hr Metronidazole (Flagyl) 500 mg in 100 mls @ 100 mls/hr IVPB Q8H [facility] Last Admin: 11/26/16 17:17 Dose: 100 mls/hr Fluconazole (Diflucan Iv 100 Mg/50 Ml Ns) 50 mls @ 100 mls/hr IVPB DAILY [facility] Last Admin: 11/26/16 10:24 Dose: 50 mls Heparin Sodium/Sodium Chloride (Heparin 37042 Units/250ml 1/2 Normal Saline) 25 ,000 units in 250 mls @ 16.411 mls/hr IV .[id number] PRN; Protocol; 18 UNITS/KG/HR PRN Reason: PROTOCOL Last Admin: 11/25/16 17:00 Dose: 18 units/kg/hr, 16.411 mls/hr Lactated Ringer's (Lactated Ringer's) 1,000 mls @ 125 mls/hr IV .Q8H [facility] Last Admin: 11/26/16 22:52 Dose: Not Given Insulin Aspart (Novolog) 0 unit SC ACHS [facility] PRN Reason: Protocol Last Admin: 11/26/16 22:42 Dose: Not Given Insulin Detemir (Levemir) 15 unit SC DAILY [facility] Last Admin: 11/24/16 09:28 Dose: 15 unit Ondansetron HCl (Zofran Inj) 4 mg IVP Q6H PRN PRN Reason: Nausea/Vomiting Saccharomyces Boulardii (Florastor) 250 mg PO BID [facility] Last Admin: 11/26/16 17:16 Dose: 250 mg - Labs Labs: 11/26/16 12:10 11/26/16 06:45 PT 15.2 SECONDS (9.7-12.2) H 11/26/16 06:45 INR 1.3 11/26/16 06:45 APTT 43 SECONDS (21-34) H D 11/26/16 06:45 Attending/Attestation - Attestation I have personally seen and examined this patient.: Yes I have fully participated in the care of the patient.: Yes I have reviewed all pertinent clinical information, including history, physical exam and plan: Yes Notes (Text): 11/27/16 06:31 Patient was seen and examined at 7:50 AM 11/26/16. Exam, Assessment and Plan, were thoroughly gone over with the Resident. Bobo Harris D.O.
[2016-11-26] MEDS: (Novolog) Insulin Aspart, Recombinant 100 u/ml 10 ml vial SC SCH ×4 (07:58→22:42)
--- NOTE | 2016-11-26 08:03 | CARD ---
APPROVED REPORT Protocol: LEXISCAN Test Type: LEXISCAN STRESS Test Indications: PRE OP Target HR: 154 bpm Resting ECG: ANTERIOR/SEPTAL Q WAVES Resting Heart Rate: 100 bpm Resting Blood Pressure: 118/80mmHg submaximum (85%): 131 bpm TEST SUMMARY FLLTCBGHGFDIOM73:02..1.0101/.0. PREINFSNHYPERV.59:[id number]/80.0. INFUSIONDOSE 100:300.00.01.0106/.0. AKMBZYKRU94:[id number]/80.0. PROCEDURE Pharmacologic stress testing was performed using 0.4mg per 5ml of regadenoson given intravenously over 7-10 seconds. POST EXERCISE Reason for Termination: LEXISCAN PROTOCOL ENDED Target HR: No Max HR: 106 bpm 75% of Maximum Predicted HR: 154 bpm Exercise duration: 00:30 min:sec, 0 Stage Exercise capacity: 1.0METs Max Blood Pressure: 118/80mmHg Chest Pain: No, none Angina index: 0 Arrhythmia: Yes, ST Change: No, none Deviation: 0 mm INTERPRETATION Stress EKG Conclusion: LEXISCAN ENDED NUCLEAR PENDING EXAM: Myocardial Perfusion REST/STRESS Imaging Protocol The imaging protocol used to acquire images was Rest Tc-99m/stress Tc-99m 2 daysRest Tc-99m/stress Tc-99m 1 dayy Rest Spect myocardial perfusion imaging was performed in supine position 45 minutes following the injection of 13.0 mCi of Tc-99 Myoview. Gated Stress Spect was performed 45 minutes after intravenous 30.7 mCi Tc-99 Myoview injection. The images were gated to evaluate regional wall motion and calculate ventricular ejection fraction.Images were reconstructed using backfilter projection method in short horizontal and verticle long axis. Spect slices were generated. RESTING DATA EDV77.43mdHV6.50L/min ESV35.00mlMyocardial Qcqj237.00g Av. Heart Wzvw419.00bpm EF55.00% STRESS DATA EDV84.88omJV0.70L/min ESV40.00mlMyocardial Rmpz874.00g EF52.00% Regional WT score at stress:2.00 Regional WM score at stress:2.00 Summed WT score at stress:17.00 Av. Heart Immg544.00bpmSummed WM score at stress:35.00 LV Perf. Quant 17 Seg. SSS17.00 17 Seg. SRS10.00 17 Seg. SDS7.00 Stress Defect Extent (% LAD)46.30Rest Defect Extent (% LAD)41.30Rev. Defect Extent (% LAD)12.50 Stress Defect Extent (% LCX)0.00Rest Defect Extent (% LCX)0.00Rev. Defect Extent (% LCX)0.00 Stress Defect Extent (% RCA)46.70Rest Defect Extent (% RCA)2.20Rev. Defect Extent (% RCA)41.10 Stress Defect Extent (% GRACE)35.70Rest Defect Extent (% GRACE)19.60Rev. Defect Extent (% GRACE)19.30 Other Information Quality:Good Overall Exercise Capacity: Good IMPRESSION Abnormal Myocardial Perfusion exercise stress study Global LV Function: Normal Stress Test Summary: Abnormal LV Perfusion Summary: Equivocal Metabolism/Perfusion Defects: There is a defect in the Mid-anteroseptal wall. There is a defect in the Basal inferoseptal wall. Reversible/Irreversible: There is a small reversible perfusion/metabolism defect in the Basal inferior wall. Conclusion 1. There is a defect in the Mid-anteroseptal wall. 2. There is a defect in the Basal inferoseptal wall. 3. Pt with fixed apical defect old PR 4. small defect inferior wall 5. asymptomatic no chest pain.'Now with sigmoid tumor 6. Maximize medical management would proceed with life saving surgery catheterization will nor alter course of medical management at this time 7. reccomend proceeding with surgery benefits of surgery outweigh risks
--- NOTE | 2016-11-26 09:20 | CP.PCM.PCO ---
Physician Communication Note - Physician Communication Note Physician Communication Note: Please see above.
--- NOTE | 2016-11-26 09:32 | CARD ---
APPROVED REPORT EXAM: Two-dimensional and M-mode echocardiogram with Doppler and color Doppler. Other Information Quality : GoodRhythm : NSR INDICATION Dizziness and Vertigo Syncope CARDIAC CLEARANCE FOR SURGERY RISK FACTORS Hypertension Hyperlipidemia Diabetes M-Mode DIMENSIONS RVDd1.56 (2.1-3.2cm)Left Atrium (MM)3.55 (2.5-4.0cm) IVSd0.78 (0.7-1.1cm)Aortic Root2.89 (2.2-3.7cm) LVDd5.23 (4.0-5.6cm)Aortic Cusp Exc.1.80 (1.5-2.0cm) PWd1.44 (0.7-1.1cm)FS (%) 26 % LVDs3.87 (2.0-3.8cm)LVEF (%)51 (>50%) Aortic Valve AoV Peak Mjagbgvy59.2cm/Gita Peak GR.4mmHg Mitral Valve MV E Lmorkglp76.8cm/sMV A Qstagopn93.6cm/sE/A ratio1.5 TDI E/Lateral E'0.0E/Medial E'0.0 Tricuspid Valve TR Peak Rcwbntgw686id/sTR Peak Gr.13uxVhRPMT95lrJx LEFT VENTRICLE The left ventricle is normal size. There is normal left ventricular wall thickness. Left ventricle systolic function is normal. The Ejection Fraction is 50-55%. There is normal LV segmental wall motion. The left ventricular diastolic function is normal. RIGHT VENTRICLE The right ventricle is normal size. There is normal right ventricular wall thickness. The right ventricular systolic function is normal. ATRIA The left atrium size is normal. The right atrium size is normal. The interatrial septum is intact with no evidence for an atrial septal defect. AORTIC VALVE The aortic valve is normal in structure. No aortic regurgitation is present. There is no aortic valvular stenosis. There is no aortic valvular vegetation. MITRAL VALVE The mitral valve is normal in structure. There is no evidence of mitral valve prolapse. There is no mitral valve stenosis. There is no mitral valve regurgitation noted. TRICUSPID VALVE The tricuspid valve is normal in structure. There is mild tricuspid regurgitation. Right ventricular systolic pressure is estimated at 40-50 mmHg. There is mild-moderate pulmonary hypertension. PULMONIC VALVE The pulmonic valve is not well visualized. There is no pulmonic valvular regurgitation. GREAT VESSELS The aortic root is normal in size. PERICARDIAL EFFUSION There is no significant pericardial effusion. <Conclusion> Left ventricle systolic function is normal. The Ejection Fraction is 50-55%. No aortic regurgitation is present. There is no mitral valve regurgitation noted. There is mild tricuspid regurgitation. There is mild-moderate pulmonary hypertension. There is no pulmonic valvular regurgitation.
[2016-11-26] MEDS ORDERED: Midazolam 2 MG/2 ML VIAL ONE (09:40)
[2016-11-26] MEDS ORDERED: Etomidate 20 mg/10ml Inj IV ONE (09:42)
[2016-11-26] MEDS: Saccharomyces Boulardi 250 mg Cap PO SCH ×2 (09:51→17:16)
--- NOTE | 2016-11-26 10:06 | CP.PCM.PN ---
Subjective - Date & Time of Evaluation Date of Evaluation: 11/26/16 Time of Evaluation: 10:02 - Subjective Subjective: Patient seen and examined at bedside this morning. He is resting comfortably. No acute events overnight as per nursing staff. He denied headache, dizziness, chest pain, palpitations, SOB, cough, abd pain, nausea, vomiting. He does complain of swelling of his lower extremities bilaterally, however he denies any pain. He is ambulating with assistance from PT while in hospital. Pt is set for OR today, he has been maintained NPO and prepped. He states that he is in good spirits and optimistic about the results of his pending procedure. Objective - Vital Signs/Intake and Output Vital Signs (last 24 hours): Temp Pulse Resp BP Pulse Ox 97.9 F 107 H 19 132/83 98 11/26/16 09:25 11/26/16 09:25 11/26/16 09:25 11/26/16 09:25 11/26/16 09:25 Intake and Output: 11/26/16 11/26/16 06:59 18:59 Intake Total 1750 Output Total 750 Balance 1000 - Medications Medications: Current Medications Dextrose (Dextrose 50% Inj) 0 ml IV STAT PRN; Protocol PRN Reason: Hyglycemia Protocol Last Admin: 11/18/16 06:21 Dose: 50 ml Famotidine (Pepcid) 20 mg IVP Q12 [facility] Last Admin: 11/26/16 09:52 Dose: Not Given Ferric Sodium Gluconate Complex (Ferrlecit) 125 mg IVPB DAILY [facility] Stop: 12/05/16 10:01 Imipenem/Cilastatin Sodium 500 (mg/ Sodium Chloride) 100 mls @ 100 mls/hr IVPB Q6H [facility] Last Admin: 11/26/16 08:32 Dose: 100 mls/hr Metronidazole (Flagyl) 500 mg in 100 mls @ 100 mls/hr IVPB Q8H [facility] Last Admin: 11/26/16 02:29 Dose: 100 mls/hr Fluconazole (Diflucan Iv 100 Mg/50 Ml Ns) 50 mls @ 100 mls/hr IVPB DAILY [facility] Last Admin: 11/25/16 14:27 Dose: 100 mls/hr Heparin Sodium/Sodium Chloride (Heparin 11546 Units/250ml 1/2 Normal Saline) 25 ,000 units in 250 mls @ 16.411 mls/hr IV .[id number] PRN; Protocol; 18 UNITS/KG/HR PRN Reason: PROTOCOL Last Admin: 11/25/16 17:00 Dose: 18 units/kg/hr, 16.411 mls/hr Lactated Ringer's (Lactated Ringer's) 1,000 mls @ 125 mls/hr IV .Q8H [facility] Last Admin: 11/26/16 03:52 Dose: 125 mls/hr Insulin Aspart (Novolog) 0 unit SC ACHS [facility] PRN Reason: Protocol Last Admin: 11/26/16 07:58 Dose: Not Given Insulin Detemir (Levemir) 15 unit SC DAILY [facility] Last Admin: 11/24/16 09:28 Dose: 15 unit Ondansetron HCl (Zofran Inj) 4 mg IVP Q6H PRN PRN Reason: Nausea/Vomiting Saccharomyces Boulardii (Florastor) 250 mg PO BID [facility] Last Admin: 11/26/16 09:51 Dose: Not Given - Labs Labs: 11/26/16 06:45 11/26/16 06:45 PT 15.2 SECONDS (9.7-12.2) H 11/26/16 06:45 INR 1.3 11/26/16 06:45 APTT 43 SECONDS (21-34) H D 11/26/16 06:45 - Constitutional Appears: No Acute Distress - Eye Exam Eye Exam: EOMI, Normal appearance - ENT Exam ENT Exam: Mucous Membranes Moist - Respiratory Exam Respiratory Exam: Clear to Ausculation Bilateral, NORMAL BREATHING PATTERN - Cardiovascular Exam Cardiovascular Exam: REGULAR RHYTHM, +S1, +S2 - Extremities Exam Extremities Exam: Pedal Edema (+1). 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 OR planned for 11/26 in conjunction with urology. Plan: Rectosigmoid Adenocarcinoma with invasion of bladder wall- Surgery risk assessment -Patient has hx of HTN and DM2 -11/15 EKG: sinus tachycardia HR @ 126bpm -Lipid panel: T Cholesterol: 65 LDL: 31 HDL: 25 -HgbA1c: 11.5 -Patient to be started on heparin gtt for b/l UE DVT -Echo 11/25/16 EF 51% LV systolic function normal Mild tricuspid regurgitation Mild-mod pulmonary hypertension Lexiscan completed on 11/25 defect in mid-anteroseptal wall defect in basal anteroseptal wall Fixed apical defect small inferior wall defect Pt has cardiac disease. Cath at this time will not alter pt's medical course. Maximize beta-russell and ACEi. At this time benefits of surgery outweigh the risks and may proceed with lifesaving surgery. Pt will need outpatient evaluation for cardiology. Upon discharge, pt is to follow up in [facility] for continued cardiology observation and treatment. Case discussed with Dr. Ruiz
[2016-11-26] MEDS: Fluconazole IV 100mg/50 ml NS 50 ML IVPB SCH (10:24)
[2016-11-26] MEDS ORDERED: Esmolol 100 mg/10ml Inj IV ONE (10:32)
[2016-11-26] MEDS ORDERED: HYDROmorphone 0.5 mg/0.5 ml ISec IVP PRN ×2 (11:45→11:54)
--- NOTE | 2016-11-26 11:45 | PCM.SURG1 ---
Surgeon's Initial Post Op Note - Surgeon's Notes Surgeon: Dr. Amin Information Resources Manager: Dr. Thompson PGY-3, Dr. Whitaker PGY-2 Type of Anesthesia: General Endo Pre-Operative Diagnosis: rectosigmoid mass Operative Findings: see operative report Post-Operative Diagnosis: see operative report Operation Performed: exploratory laparotomy Specimen/Specimens Removed: none Estimated Blood Loss: EBL {In ML}: 50 Blood Products Given: PRBC Drains Used: No Drains Post-Op Condition: Fair Date of Surgery/Procedure: 11/26/16 Time of Surgery/Procedure: 11:45
[2016-11-26] MEDS ORDERED: Lactated Ringer's 1,000 ML IV SCH (12:00)
[2016-11-26 12:14] LABS: BASO % 0.2 % (0.0-2.0); EOS % 0.1 % (0.0-4.0); LYMPH # 1.2 K/uL (1.0-4.3); MONO # 0.8 K/uL (0.0-0.8); MONO % 5.7 % (0.0-10.0); PLATELET COUNT 216 K/uL (130-400)
[2016-11-26 12:19] LABS: HEMATOCRIT 34.3 % (35.0-51.0); LYMPH % 8.8 % (20.0-40.0); MEAN CORPUSCULAR HEMOGLOBIN 23.5 pg (27.0-31.0); MEAN CORPUSCULAR HGB CONC 32.8 g/dL (33.0-37.0); MEAN PLATELET VOLUME 8.7 fL (7.2-11.7); RED CELL DISTRIBUTION WIDTH 24.1 % (11.5-14.5)
[2016-11-26 12:22] LABS: MEAN CELL VOLUME 71.5 fL (80.0-94.0); WHITE BLOOD COUNT 14.1 K/uL (4.8-10.8)
[2016-11-26 12:47] LABS: TOTAL CELLS COUNTED 100
[2016-11-26 12:50] LABS: NEUTROPHIL 68 % (50-75)
--- NOTE | 2016-11-26 13:15 | CP.PCM.CON ---
Addendum entered and electronically signed by Tati Goodman DO 11/26/16 18:08: Note: I did not participate in the care of this patient today, my name was erroneously added as co-signer to this document. Tati Goodman, PGY-1 Original Note: <Tati Goodman - Last Filed: 11/26/16 15:30> Meds Allergies/Adverse Reactions: Allergies Allergy/AdvReac Type Severity Reaction Status Date / Time No Known Allergies Allergy Verified 11/15/16 21:27 - Medications Medications: Current Medications Dextrose (Dextrose 50% Inj) 0 ml IV STAT PRN; Protocol PRN Reason: Hyglycemia Protocol Last Admin: 11/18/16 06:21 Dose: 50 ml Famotidine (Pepcid) 20 mg IVP Q12 DOREEN Last Admin: 11/26/16 09:52 Dose: Not Given Ferric Sodium Gluconate Complex (Ferrlecit) 125 mg IVPB DAILY DOREEN Stop: 12/05/16 10:01 Hydromorphone HCl (Dilaudid) 0.5 mg IVP Q4H PRN PRN Reason: Pain, moderate (4-7) Imipenem/Cilastatin Sodium 500 (mg/ Sodium Chloride) 100 mls @ 100 mls/hr IVPB Q6H DOREEN Last Admin: 11/26/16 13:55 Dose: 100 mls/hr Metronidazole (Flagyl) 500 mg in 100 mls @ 100 mls/hr IVPB Q8H DOREEN Last Admin: 11/26/16 10:30 Dose: 100 mls Fluconazole (Diflucan Iv 100 Mg/50 Ml Ns) 50 mls @ 100 mls/hr IVPB DAILY DOREEN Last Admin: 11/26/16 10:24 Dose: 50 mls Heparin Sodium/Sodium Chloride (Heparin 26810 Units/250ml 1/2 Normal Saline) 25 ,000 units in 250 mls @ 16.411 mls/hr IV .[id number] PRN; Protocol; 18 UNITS/KG/HR PRN Reason: PROTOCOL Last Admin: 11/25/16 17:00 Dose: 18 units/kg/hr, 16.411 mls/hr Lactated Ringer's (Lactated Ringer's) 1,000 mls @ 125 mls/hr IV .Q8H DOREEN Last Admin: 11/26/16 03:52 Dose: 125 mls/hr Lactated Ringer's (Lactated Ringer's) 1,000 mls @ 125 mls/hr IV .Q8H DOREEN Insulin Aspart (Novolog) 0 unit SC ACHS DOREEN PRN Reason: Protocol Last Admin: 11/26/16 12:10 Dose: 4 unit Insulin Detemir (Levemir) 15 unit SC DAILY [facility] Last Admin: 11/24/16 09:28 Dose: 15 unit Ondansetron HCl (Zofran Inj) 4 mg IVP Q6H PRN PRN Reason: Nausea/Vomiting Saccharomyces Boulardii (Florastor) 250 mg PO BID [facility] Last Admin: 11/26/16 09:51 Dose: Not Given Physical Exam - Neurological Exam Neurological exam: Alert, Oriented x3 - Skin Skin Exam: Normal Color Results - Vital Signs Recent Vital Signs: Last Vital Signs Temp 97.5 F L 11/26/16 12:35 Pulse 109 H 11/26/16 14:00 Resp 17 11/26/16 14:00 BP 125/73 11/26/16 14:00 Pulse Ox 97 11/26/16 14:00 - Labs Result Diagrams: 11/26/16 12:10 11/26/16 06:45 Labs: Laboratory Results - last 24 hr 11/20/16 11/25/16 11/25/16 14:53 07:10 16:31 WBC RBC Hgb Hct MCV MCH MCHC RDW Plt Count MPV Neut % (Auto) Lymph % (Auto) [place] % (Auto) Eos % (Auto) Baso % (Auto) Neut # Lymph # [place] # Eos # Baso # Neutrophils % (Manual) Band Neutrophils % Lymphocytes % (Manual) Reactive Lymphs % Monocytes % (Manual) Platelet Estimate Poikilocytosis (manual Anisocytosis (manual) Ovalocytes [place] Cells PT INR APTT Sodium Potassium Chloride Carbon Dioxide Anion Gap BUN Creatinine Est GFR ( Amer) Est GFR (Non-Af Amer) POC Glucose (mg/dL) 183 H Random Glucose Calcium Phosphorus Magnesium Total Bilirubin AST ALT Alkaline Phosphatase Total Protein Albumin Globulin Albumin/Globulin Ratio Peritoneal CEA 2 H Blood Type O POSITIVE Antibody Screen Negative 11/25/16 11/26/16 11/26/16 21:14 00:45 06:45 WBC 7.1 RBC 3.79 L Hgb 8.3 L Hct 25.9 L MCV 68.3 L MCH 21.8 L MCHC 31.9 L RDW 21.0 H Plt Count 153 MPV 9.1 Neut % (Auto) 77.9 H Lymph % (Auto) 14.7 L [place] % (Auto) 7.0 Eos % (Auto) 0.2 Baso % (Auto) 0.2 Neut # 5.5 Lymph # 1.0 Sutter # 0.5 Eos # 0.0 Baso # 0.0 Neutrophils % (Manual) Band Neutrophils % Lymphocytes % (Manual) Reactive Lymphs % Monocytes % (Manual) Platelet Estimate Poikilocytosis (manual Anisocytosis (manual) Ovalocytes [place] Cells PT INR APTT 241 H* D Sodium Potassium Chloride Carbon Dioxide Anion Gap BUN Creatinine Est GFR ( Amer) Est GFR (Non-Af Amer) POC Glucose (mg/dL) 203 H Random Glucose Calcium Phosphorus Magnesium Total Bilirubin AST ALT Alkaline Phosphatase Total Protein Albumin Globulin Albumin/Globulin Ratio Peritoneal CEA Blood Type Antibody Screen 11/26/16 11/26/16 11/26/16 06:45 06:45 06:45 WBC RBC Hgb Hct MCV MCH MCHC RDW Plt Count MPV Neut % (Auto) Lymph % (Auto) [place] % (Auto) Eos % (Auto) Baso % (Auto) Neut # Lymph # [place] # Eos # Baso # Neutrophils % (Manual) Band Neutrophils % Lymphocytes % (Manual) Reactive Lymphs % Monocytes % (Manual) Platelet Estimate Poikilocytosis (manual Anisocytosis (manual) Ovalocytes [place] Cells PT 15.2 H INR 1.3 APTT 43 H D Sodium 138 Potassium 3.4 L Chloride 102 Carbon Dioxide 26 Anion Gap 13 BUN 8 L Creatinine 0.5 L Est GFR ( Amer) > 60 Est GFR (Non-Af Amer) > 60 POC Glucose (mg/dL) 180 H Random Glucose 166 H Calcium 6.6 L Phosphorus 3.1 Magnesium 1.7 Total Bilirubin 0.6 AST 17 ALT 31 Alkaline Phosphatase 149 H Total Protein 4.4 L Albumin 1.6 L Globulin 2.8 Albumin/Globulin Ratio 0.6 L Peritoneal CEA Blood Type Antibody Screen 11/26/16 11/26/16 12:01 12:10 WBC 14.1 H D RBC 4.79 Hgb 11.2 L D Hct 34.3 L MCV 71.5 L D MCH 23.5 L MCHC 32.8 L RDW 24.1 H Plt Count 216 MPV 8.7 Neut % (Auto) 85.2 H Lymph % (Auto) 8.8 L [place] % (Auto) 5.7 Eos % (Auto) 0.1 Baso % (Auto) 0.2 Neut # 12.0 H Lymph # 1.2 [place]utter # 0.8 Eos # 0.0 Baso # 0.0 Neutrophils % (Manual) 68 Band Neutrophils % 12 H* Lymphocytes % (Manual) 9 L Reactive Lymphs % TEST NOT PERFORMED Monocytes % (Manual) 11 H Platelet Estimate Normal Poikilocytosis (manual Slight Anisocytosis (manual) Moderate Ovalocytes Moderate [place] Cells Slight PT INR APTT Sodium Potassium Chloride Carbon Dioxide Anion Gap BUN Creatinine Est GFR ( Amer) Est GFR (Non-Af Amer) POC Glucose (mg/dL) 228 H Random Glucose Calcium Phosphorus Magnesium Total Bilirubin AST ALT Alkaline Phosphatase Total Protein Albumin Globulin Albumin/Globulin Ratio Peritoneal CEA Blood Type Antibody Screen Assessment & Plan - Assessment and Plan (Free Text) Assessment: 66 year old male with past medical history of HTN, diabetes, stomach cancer and HLD who presents to the ICU s/p exploratory laparotomy. <Laila Vincent - Last Filed: 11/26/16 17:37> History of Present Illness - History of Present Illness History of Present Illness: 66 year old male with past medical history of HTN, diabetes, stomach cancer and HLD who presents to the ICU s/p exploratory laparotomy. Patient was seen and examined at bedside. Patient denies shortness of breath, chest pain, nausea or vomiting or abdominal pain. Patient states his mouth is dry. Per president sales and marketing patient was given 2 units of PRBC in the OR. 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 Review of Systems - Constitutional Constitutional: absent: Fever - EENT Nose/Mouth/Throat: Dry Mouth - Cardiovascular Cardiovascular: absent: Chest Pain, Dyspnea - Respiratory Respiratory: absent: Dyspnea - Gastrointestinal Gastrointestinal: absent: Constipation, Diarrhea, Nausea, Vomiting - Neurological Neurological: absent: Dizziness, Headaches Past Patient History - Past Medical History & Family History Past Medical History?: No - Past Social History Smoking Status: Never Smoked - CARDIAC Hx Hypertension: Yes - PULMONARY Hx Respiratory Disorders: No - NEUROLOGICAL Hx Neurological Disorder: No - HEENT Hx HEENT Problems: No - RENAL Hx Chronic Kidney Disease: No - ENDOCRINE/METABOLIC Hx Diabetes Mellitus Type 2: Yes - HEMATOLOGICAL/ONCOLOGICAL Hx Blood Disorders: No Hx Blood Transfusions: No - INTEGUMENTARY Hx Dermatological Problems: No - MUSCULOSKELETAL/RHEUMATOLOGICAL Hx Falls: Yes - GASTROINTESTINAL Hx Gastrointestinal Disorders: No - GENITOURINARY/GYNECOLOGICAL Hx Genitourinary Disorders: No - PSYCHIATRIC Hx Substance Use: No - SURGICAL HISTORY Hx Surgeries: Yes - ANESTHESIA Hx Anesthesia: Yes Hx Anesthesia Reactions: No Hx Malignant Hyperthermia: No Meds - Medications Medications: Current Medications Dextrose (Dextrose 50% Inj) 0 ml IV STAT PRN; Protocol PRN Reason: Hyglycemia Protocol Last Admin: 11/18/16 06:21 Dose: 50 ml Famotidine (Pepcid) 20 mg IVP Q12 [facility] Last Admin: 11/26/16 09:52 Dose: Not Given Ferric Sodium Gluconate Complex (Ferrlecit) 125 mg IVPB DAILY [facility] Stop: 12/05/16 10:01 Hydromorphone HCl (Dilaudid) 0.5 mg IVP Q4H PRN PRN Reason: Pain, moderate (4-7) Hydromorphone HCl (Dilaudid) 0.5 mg IVP Q5M PRN PRN Reason: Pain, severe (8-10) Stop: 11/26/16 13:55 Imipenem/Cilastatin Sodium 500 (mg/ Sodium Chloride) 100 mls @ 100 mls/hr IVPB Q6H [facility] Last Admin: 11/26/16 08:32 Dose: 100 mls/hr Metronidazole (Flagyl) 500 mg in 100 mls @ 100 mls/hr IVPB Q8H [facility] Last Admin: 11/26/16 10:30 Dose: 100 mls Fluconazole (Diflucan Iv 100 Mg/50 Ml Ns) 50 mls @ 100 mls/hr IVPB DAILY [facility] Last Admin: 11/26/16 10:24 Dose: 50 mls Heparin Sodium/Sodium Chloride (Heparin 23424 Units/250ml 1/2 Normal Saline) 25 ,000 units in 250 mls @ 16.411 mls/hr IV .[id number] PRN; Protocol; 18 UNITS/KG/HR PRN Reason: PROTOCOL Last Admin: 11/25/16 17:00 Dose: 18 units/kg/hr, 16.411 mls/hr Lactated Ringer's (Lactated Ringer's) 1,000 mls @ 125 mls/hr IV .Q8H [facility] Last Admin: 11/26/16 03:52 Dose: 125 mls/hr Lactated Ringer's (Lactated Ringer's) 1,000 mls @ 125 mls/hr IV .Q8H DOREEN Insulin Aspart (Novolog) 0 unit SC ACHS DOREEN PRN Reason: Protocol Last Admin: 11/26/16 12:10 Dose: 4 unit Insulin Detemir (Levemir) 15 unit SC DAILY [facility] Last Admin: 11/24/16 09:28 Dose: 15 unit Ondansetron HCl (Zofran Inj) 4 mg IVP Q6H PRN PRN Reason: Nausea/Vomiting Ondansetron HCl (Zofran Inj) 4 mg IVP ONCE PRN PRN Reason: Nausea/Vomiting Stop: 11/26/16 13:55 Saccharomyces Boulardii (Florastor) 250 mg PO BID [facility] Last Admin: 11/26/16 09:51 Dose: Not Given Physical Exam - Head Exam Head Exam: ATRAUMATIC, NORMAL INSPECTION - Eye Exam Eye Exam: EOMI, Normal appearance, PERRL Pupil Exam: NORMAL ACCOMODATION - ENT Exam ENT Exam: Mucous Membranes Dry - Respiratory Exam Respiratory Exam: Clear to Auscultation Bilateral, NORMAL BREATHING PATTERN - Cardiovascular Exam Cardiovascular Exam: REGULAR RHYTHM - GI/Abdominal Exam GI & Abdominal Exam: Hypoactive Bowel Sounds, Soft - Neurological Exam Neurological exam: Alert, Oriented x3 - Psychiatric Exam Psychiatric exam: Normal Affect, Normal Mood - Skin Skin Exam: Normal Color Results - Vital Signs Recent Vital Signs: Last Vital Signs Temp 98.2 F 11/26/16 12:25 Pulse 107 H 11/26/16 12:25 Resp 32 H 11/26/16 12:25 BP 162/90 H 11/26/16 12:25 Pulse Ox 97 11/26/16 12:25 - Labs Result Diagrams: 11/26/16 12:10 11/26/16 06:45 Labs: Laboratory Results - last 24 hr 11/20/16 11/25/16 11/25/16 14:53 07:10 10:10 WBC RBC Hgb Hct MCV MCH MCHC RDW Plt Count MPV Neut % (Auto) Lymph % (Auto) [place] % (Auto) Eos % (Auto) Baso % (Auto) Neut # Lymph # [place] # Eos # Baso # Neutrophils % (Manual) Band Neutrophils % Lymphocytes % (Manual) Reactive Lymphs % Monocytes % (Manual) Platelet Estimate Poikilocytosis (manual Anisocytosis (manual) Ovalocytes [place] Cells PT INR APTT Sodium Potassium Chloride Carbon Dioxide Anion Gap BUN Creatinine Est GFR ( Amer) Est GFR (Non-Af Amer) POC Glucose (mg/dL) Random Glucose Calcium Phosphorus Magnesium Total Bilirubin AST ALT Alkaline Phosphatase Total Protein Albumin Globulin Albumin/Globulin Ratio Peritoneal CEA 2 H C. difficile Ag & Toxin Negative Blood Type O POSITIVE Antibody Screen Negative 11/25/16 11/25/16 11/26/16 16:31 21:14 00:45 WBC RBC Hgb Hct MCV MCH MCHC RDW Plt Count MPV Neut % (Auto) Lymph % (Auto) [place] % (Auto) Eos % (Auto) Baso % (Auto) Neut # Lymph # [place] # Eos # Baso # Neutrophils % (Manual) Band Neutrophils % Lymphocytes % (Manual) Reactive Lymphs % Monocytes % (Manual) Platelet Estimate Poikilocytosis (manual Anisocytosis (manual) Ovalocytes [place] Cells PT INR APTT 241 H* D Sodium Potassium Chloride Carbon Dioxide Anion Gap BUN Creatinine Est GFR ( Amer) Est GFR (Non-Af Amer) POC Glucose (mg/dL) 183 H 203 H Random Glucose Calcium Phosphorus Magnesium Total Bilirubin AST ALT Alkaline Phosphatase Total Protein Albumin Globulin Albumin/Globulin Ratio Peritoneal CEA C. difficile Ag & Toxin Blood Type Antibody Screen 11/26/16 11/26/16 11/26/16 06:45 06:45 06:45 WBC 7.1 RBC 3.79 L Hgb 8.3 L Hct 25.9 L MCV 68.3 L MCH 21.8 L MCHC 31.9 L RDW 21.0 H Plt Count 153 MPV 9.1 Neut % (Auto) 77.9 H Lymph % (Auto) 14.7 L [place] % (Auto) 7.0 Eos % (Auto) 0.2 Baso % (Auto) 0.2 Neut # 5.5 Lymph # 1.0 [place]utter # 0.5 Eos # 0.0 Baso # 0.0 Neutrophils % (Manual) Band Neutrophils % Lymphocytes % (Manual) Reactive Lymphs % Monocytes % (Manual) Platelet Estimate Poikilocytosis (manual Anisocytosis (manual) Ovalocytes [place] Cells PT 15.2 H INR 1.3 APTT 43 H D Sodium 138 Potassium 3.4 L Chloride 102 Carbon Dioxide 26 Anion Gap 13 BUN 8 L Creatinine 0.5 L Est GFR ( Amer) > 60 Est GFR (Non-Af Amer) > 60 POC Glucose (mg/dL) Random Glucose 166 H Calcium 6.6 L Phosphorus 3.1 Magnesium 1.7 Total Bilirubin 0.6 AST 17 ALT 31 Alkaline Phosphatase 149 H Total Protein 4.4 L Albumin 1.6 L Globulin 2.8 Albumin/Globulin Ratio 0.6 L Peritoneal CEA C. difficile Ag & Toxin Blood Type Antibody Screen 11/26/16 11/26/16 11/26/16 06:45 12:01 12:10 WBC 14.1 H D RBC 4.79 Hgb 11.2 L D Hct 34.3 L MCV 71.5 L D MCH 23.5 L MCHC 32.8 L RDW 24.1 H Plt Count 216 MPV 8.7 Neut % (Auto) 85.2 H Lymph % (Auto) 8.8 L [place] % (Auto) 5.7 Eos % (Auto) 0.1 Baso % (Auto) 0.2 Neut # 12.0 H Lymph # 1.2 [place]utter # 0.8 Eos # 0.0 Baso # 0.0 Neutrophils % (Manual) 68 Band Neutrophils % 12 H* Lymphocytes % (Manual) 9 L Reactive Lymphs % TEST NOT PERFORMED Monocytes % (Manual) 11 H Platelet Estimate Normal Poikilocytosis (manual Slight Anisocytosis (manual) Moderate Ovalocytes Moderate [place] Cells Slight PT INR APTT Sodium Potassium Chloride Carbon Dioxide Anion Gap BUN Creatinine Est GFR ( Amer) Est GFR (Non-Af Amer) POC Glucose (mg/dL) 180 H 228 H Random Glucose Calcium Phosphorus Magnesium Total Bilirubin AST ALT Alkaline Phosphatase Total Protein Albumin Globulin Albumin/Globulin Ratio Peritoneal CEA C. difficile Ag & Toxin Blood Type Antibody Screen Assessment & Plan - Assessment and Plan (Free Text) Plan: Neuro: Patient is alert and oriented in the ICU Pulm: No acute issues CV: Cardiac Consult: Dr. Ruiz --> help appreciated 11/16: Will hold lisnopril at this time Heme: Heme/Onc Consult: Jose --> help appreciated Dread - hold for 48hours per surgery Loss 50ml of blood in the OR - received 2 units of PRBC in the OR Endo: Insulin Sliding Scale/Accuchecks GI: History of Stomach cancer s/p exploratory laparotomy of rectosigmoid mass Renal: Yeast Budding: (positive) * Fluconazole 100mg IVPB daily ID: ID Consult: Dr. Burns --> help appreciated 11/25: Blood cultures are negative after [address]. [address] Burns, con't tx for minimum of 14 days; Primaxin and Flagyl both started on 11/17. Yeast Budding: (positive) * Fluconazole 100mg IVPB daily DVT proph: SCDs, hold heparin GI Proph: Pepcid 20mg IVP Q12h Code Status: full code Case discussed with Dr. Jace Vincent PGY-1 <Roland Mccormick S - Last Filed: 11/26/16 18:32> Meds - Medications Medications: Current Medications Dextrose (Dextrose 50% Inj) 0 ml IV STAT PRN; Protocol PRN Reason: Hyglycemia Protocol Last Admin: 11/18/16 06:21 Dose: 50 ml Famotidine (Pepcid) 20 mg IVP Q12 [facility] Last Admin: 11/26/16 09:52 Dose: Not Given Hydromorphone HCl (Dilaudid) 0.5 mg IVP Q4H PRN PRN Reason: Pain, moderate (4-7) Imipenem/Cilastatin Sodium 500 (mg/ Sodium Chloride) 100 mls @ 100 mls/hr IVPB Q6H [facility] Last Admin: 11/26/16 13:55 Dose: 100 mls/hr Metronidazole (Flagyl) 500 mg in 100 mls @ 100 mls/hr IVPB Q8H [facility] Last Admin: 11/26/16 17:17 Dose: 100 mls/hr Fluconazole (Diflucan Iv 100 Mg/50 Ml Ns) 50 mls @ 100 mls/hr IVPB DAILY [facility] Last Admin: 11/26/16 10:24 Dose: 50 mls Heparin Sodium/Sodium Chloride (Heparin 75082 Units/250ml 1/2 Normal Saline) 25 ,000 units in 250 mls @ 16.411 mls/hr IV .[id number] PRN; Protocol; 18 UNITS/KG/HR PRN Reason: PROTOCOL Last Admin: 11/25/16 17:00 Dose: 18 units/kg/hr, 16.411 mls/hr Lactated Ringer's (Lactated Ringer's) 1,000 mls @ 125 mls/hr IV .Q8H [facility] Last Admin: 11/26/16 16:30 Dose: 125 mls/hr Insulin Aspart (Novolog) 0 unit SC ACHS [facility] PRN Reason: Protocol Last Admin: 11/26/16 17:16 Dose: 4 unit Insulin Detemir (Levemir) 15 unit SC DAILY [facility] Last Admin: 11/24/16 09:28 Dose: 15 unit Ondansetron HCl (Zofran Inj) 4 mg IVP Q6H PRN PRN Reason: Nausea/Vomiting Saccharomyces Boulardii (Florastor) 250 mg PO BID [facility] Last Admin: 11/26/16 17:16 Dose: 250 mg Results - Vital Signs Recent Vital Signs: Last Vital Signs Temp 97.5 F L 11/26/16 16:00 Pulse 94 H 11/26/16 16:00 Resp 19 11/26/16 16:00 BP 135/74 11/26/16 16:00 Pulse Ox 99 11/26/16 16:00 - Labs Result Diagrams: 11/26/16 12:10 11/26/16 06:45 Labs: Laboratory Results - last 24 hr 11/20/16 11/25/16 11/25/16 14:53 07:10 21:14 WBC RBC Hgb Hct MCV MCH MCHC RDW Plt Count MPV Neut % (Auto) Lymph % (Auto) [place] % (Auto) Eos % (Auto) Baso % (Auto) Neut # Lymph # [place] # Eos # Baso # Neutrophils % (Manual) Band Neutrophils % Lymphocytes % (Manual) Reactive Lymphs % Monocytes % (Manual) Platelet Estimate Poikilocytosis (manual Anisocytosis (manual) Ovalocytes [place] Cells PT INR APTT Sodium Potassium Chloride Carbon Dioxide Anion Gap BUN Creatinine Est GFR ( Amer) Est GFR (Non-Af Amer) POC Glucose (mg/dL) 203 H Random Glucose Calcium Phosphorus Magnesium Total Bilirubin AST ALT Alkaline Phosphatase Total Protein Albumin Globulin Albumin/Globulin Ratio Peritoneal CEA 2 H Blood Type O POSITIVE Antibody Screen Negative 11/26/16 11/26/16 11/26/16 00:45 06:45 06:45 WBC 7.1 RBC 3.79 L Hgb 8.3 L Hct 25.9 L MCV 68.3 L MCH 21.8 L MCHC 31.9 L RDW 21.0 H Plt Count 153 MPV 9.1 Neut % (Auto) 77.9 H Lymph % (Auto) 14.7 L [place] % (Auto) 7.0 Eos % (Auto) 0.2 Baso % (Auto) 0.2 Neut # 5.5 Lymph # 1.0 [place]utter # 0.5 Eos # 0.0 Baso # 0.0 Neutrophils % (Manual) Band Neutrophils % Lymphocytes % (Manual) Reactive Lymphs % Monocytes % (Manual) Platelet Estimate Poikilocytosis (manual Anisocytosis (manual) Ovalocytes [place] Cells PT INR APTT 241 H* D Sodium 138 Potassium 3.4 L Chloride 102 Carbon Dioxide 26 Anion Gap 13 BUN 8 L Creatinine 0.5 L Est GFR ( Amer) > 60 Est GFR (Non-Af Amer) > 60 POC Glucose (mg/dL) Random Glucose 166 H Calcium 6.6 L Phosphorus 3.1 Magnesium 1.7 Total Bilirubin 0.6 AST 17 ALT 31 Alkaline Phosphatase 149 H Total Protein 4.4 L Albumin 1.6 L Globulin 2.8 Albumin/Globulin Ratio 0.6 L Peritoneal CEA Blood Type Antibody Screen 11/26/16 11/26/16 11/26/16 06:45 06:45 12:01 WBC RBC Hgb Hct MCV MCH MCHC RDW Plt Count MPV Neut % (Auto) Lymph % (Auto) [place] % (Auto) Eos % (Auto) Baso % (Auto) Neut # Lymph # [place] # Eos # Baso # Neutrophils % (Manual) Band Neutrophils % Lymphocytes % (Manual) Reactive Lymphs % Monocytes % (Manual) Platelet Estimate Poikilocytosis (manual Anisocytosis (manual) Ovalocytes [place] Cells PT 15.2 H INR 1.3 APTT 43 H D Sodium Potassium Chloride Carbon Dioxide Anion Gap BUN Creatinine Est GFR ( Amer) Est GFR (Non-Af Amer) POC Glucose (mg/dL) 180 H 228 H Random Glucose Calcium Phosphorus Magnesium Total Bilirubin AST ALT Alkaline Phosphatase Total Protein Albumin Globulin Albumin/Globulin Ratio Peritoneal CEA Blood Type Antibody Screen 11/26/16 11/26/16 12:10 16:16 WBC 14.1 H D RBC 4.79 Hgb 11.2 L D Hct 34.3 L MCV 71.5 L D MCH 23.5 L MCHC 32.8 L RDW 24.1 H Plt Count 216 MPV 8.7 Neut % (Auto) 85.2 H Lymph % (Auto) 8.8 L [place] % (Auto) 5.7 Eos % (Auto) 0.1 Baso % (Auto) 0.2 Neut # 12.0 H Lymph # 1.2 Sutter # 0.8 Eos # 0.0 Baso # 0.0 Neutrophils % (Manual) 68 Band Neutrophils % 12 H* Lymphocytes % (Manual) 9 L Reactive Lymphs % TEST NOT PERFORMED Monocytes % (Manual) 11 H Platelet Estimate Normal Poikilocytosis (manual Slight Anisocytosis (manual) Moderate Ovalocytes Moderate [place] Cells Slight PT INR APTT Sodium Potassium Chloride Carbon Dioxide Anion Gap BUN Creatinine Est GFR ( Amer) Est GFR (Non-Af Amer) POC Glucose (mg/dL) 205 H Random Glucose Calcium Phosphorus Magnesium Total Bilirubin AST ALT Alkaline Phosphatase Total Protein Albumin Globulin Albumin/Globulin Ratio Peritoneal CEA Blood Type Antibody Screen Attending/Attestation - Attestation I have personally seen and examined this patient.: Yes I have fully participated in the care of the patient.: Yes I have reviewed all pertinent clinical information: Yes Notes (Text): 11/26/16 18:28 Patient seen and examined Patient transferred to ICU postop. Status post exp laparotomy for a rectosigmoid mass, Intra-Op patient hypotensive and surgery canceled because of adhesions. Patient started on pressors and extubated in the recovery. Patient awake and responsive now Patient transfused packed RBCs in the recovery and OR Follow-up H&H
--- NOTE | 2016-11-26 20:15 | CP.PCM.PN ---
Subjective - Date & Time of Evaluation Date of Evaluation: 11/26/16 Time of Evaluation: 18:00 - Subjective Subjective: Has some abdominal pain. 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 Objective - Vital Signs/Intake and Output Vital Signs (last 24 hours): Temp Pulse Resp BP Pulse Ox 97.5 F L 108 H 17 128/76 96 11/26/16 16:00 11/26/16 19:00 11/26/16 19:00 11/26/16 19:00 11/26/16 19:00 Intake and Output: 11/26/16 11/27/16 18:59 06:59 Intake Total 3482 Output Total 220 Balance 3262 - Medications Medications: Current Medications Dextrose (Dextrose 50% Inj) 0 ml IV STAT PRN; Protocol PRN Reason: Hyglycemia Protocol Last Admin: 11/18/16 06:21 Dose: 50 ml Famotidine (Pepcid) 20 mg IVP Q12 [facility] Last Admin: 11/26/16 09:52 Dose: Not Given Hydromorphone HCl (Dilaudid) 0.5 mg IVP Q4H PRN PRN Reason: Pain, moderate (4-7) Imipenem/Cilastatin Sodium 500 (mg/ Sodium Chloride) 100 mls @ 100 mls/hr IVPB Q6H [facility] Last Admin: 11/26/16 13:55 Dose: 100 mls/hr Metronidazole (Flagyl) 500 mg in 100 mls @ 100 mls/hr IVPB Q8H [facility] Last Admin: 11/26/16 17:17 Dose: 100 mls/hr Fluconazole (Diflucan Iv 100 Mg/50 Ml Ns) 50 mls @ 100 mls/hr IVPB DAILY [facility] Last Admin: 11/26/16 10:24 Dose: 50 mls Heparin Sodium/Sodium Chloride (Heparin 37895 Units/250ml 1/2 Normal Saline) 25 ,000 units in 250 mls @ 16.411 mls/hr IV .[id number] PRN; Protocol; 18 UNITS/KG/HR PRN Reason: PROTOCOL Last Admin: 11/25/16 17:00 Dose: 18 units/kg/hr, 16.411 mls/hr Lactated Ringer's (Lactated Ringer's) 1,000 mls @ 125 mls/hr IV .Q8H [facility] Last Admin: 11/26/16 16:30 Dose: 125 mls/hr Insulin Aspart (Novolog) 0 unit SC ACHS [facility] PRN Reason: Protocol Last Admin: 11/26/16 17:16 Dose: 4 unit Insulin Detemir (Levemir) 15 unit SC DAILY [facility] Last Admin: 11/24/16 09:28 Dose: 15 unit Ondansetron HCl (Zofran Inj) 4 mg IVP Q6H PRN PRN Reason: Nausea/Vomiting Saccharomyces Boulardii (Florastor) 250 mg PO BID [facility] Last Admin: 11/26/16 17:16 Dose: 250 mg - Labs Labs: 11/26/16 12:10 11/26/16 06:45 PT 15.2 SECONDS (9.7-12.2) H 11/26/16 06:45 INR 1.3 11/26/16 06:45 APTT 43 SECONDS (21-34) H D 11/26/16 06:45 - Head Exam Head Exam: ATRAUMATIC - Eye Exam Eye Exam: Normal appearance - ENT Exam ENT Exam: Mucous Membranes Dry - Respiratory Exam Respiratory Exam: NORMAL BREATHING PATTERN - Cardiovascular Exam Cardiovascular Exam: +S1, +S2 - GI/Abdominal Exam GI & Abdominal Exam: Normal Bowel Sounds Assessment and Plan (1) Colon cancer Assessment & Plan: with bladder involvement; unable to resect pt agreeable for neoadjuvant chemotherapy; will need portacath placement outpatient chemotherapy Status: Acute (2) DVT (deep venous thrombosis) Assessment & Plan: on anticoagulation Status: Acute (3) Anemia Assessment & Plan: chronic disease normal iron, b12, folate stores Status: Acute (4) Pancreatic lesion Assessment & Plan: s/p biopsy; negative for malignant cells Status: Acute
[2016-11-26] MEDS ORDERED: Dextrose 50% SYRINGE Inj (50 ml) IV STA (21:19)
[2016-11-27] MEDS: metroNIDAZOLE IV 500 mg/100 ml 500 MG/100 ML BAG IVPB SCH ×3 (03:00→17:49)
[2016-11-27] MEDS: Lactated Ringer's 1,000 ML IV SCH ×3 (04:00→22:18)
--- NOTE | 2016-11-27 05:29 | OP ---
PROCEDURE DATE: 11/26/2016 PREOPERATIVE DIAGNOSES: Rectosigmoid carcinoma with invasion of bladder. 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 PROCEDURE: Rigid sigmoidoscopy and exploratory laparotomy. SURGEON: Dr. Amin. OIL FIELD PIPELINE SUPERVISOR: Dr. Thompson and Dr. Whitaker. TYPE OF ANESTHESIA: General. DESCRIPTION OF PROCEDURE: The patient was anesthetized and placed in the lithotomy thin stirrups and the abdomen was prepped and draped in the usual sterile manner. Prior to prepping and draping, a rigid sigmoidoscopy was performed to confirm the position of a tumor, which had been identified on CT scan and colonoscopy and the sigmoidoscope was passed to 20 cm under direct vision and the colon examined as the sigmoidoscope was withdrawn. The distal extent of a multifocal anterior tumor was at 15 cm from the anal verge and the distal rectum appeared intact. The abdomen and perineum were then prepped and draped in the usual sterile manner. The patient had a mass palpable in the suprapubic area. A midline incision was made taken down through the subcutaneous tissue and the peritoneum was entered in the midline. Upon entering the peritoneal cavity, there was noted to be the previously identified mass in the lower abdomen. A number of loops of small bowel were adherent to the mass on the right side and the mass itself was adherent to the area of the pubis as well as the left pelvic sidewall; although, there was an area where the rectum could be palpated distal to the mass. The mass was also firmly adherent to the bladder. As this exploration was being performed, the patient was noted by anesthesia to become hypotensive and slow to respond to resuscitative attempts including pressors and fluid and blood transfusion. As it was felt unlikely that the tumor could be removed due to multiple areas of fixation and as the patient was somewhat unstable, decision was made to close. The abdomen was closed with running fascial suture of #1 Novafil and the skin was closed with jody. Dry sterile dressing was applied. The patient did stabilize and was extubated in the operating room and transferred to the recovery room in stable condition. Estimated blood loss was 50 mL. Rose Amin MD [facility] # [id number]
[2016-11-27 06:52] LABS: BASO % 0.2 % (0.0-2.0); EOS % 0.3 % (0.0-4.0); HEMATOCRIT 31.9 % (35.0-51.0); LYMPH # 1.6 K/uL (1.0-4.3); LYMPH % 11.7 % (20.0-40.0); MEAN CELL VOLUME 71.6 fL (80.0-94.0); MEAN CORPUSCULAR HEMOGLOBIN 23.5 pg (27.0-31.0); MEAN CORPUSCULAR HGB CONC 32.9 g/dL (33.0-37.0); MEAN PLATELET VOLUME 8.7 fL (7.2-11.7); MONO # 0.8 K/uL (0.0-0.8); RED CELL DISTRIBUTION WIDTH 23.4 % (11.5-14.5); WHITE BLOOD COUNT 13.6 K/uL (4.8-10.8)
[2016-11-27 06:55] LABS: CHLORIDE 105 mmol/L (98-107)
[2016-11-27 06:56] LABS: POTASSIUM 3.7 mmol/L (3.6-5.2); SODIUM 137 mmol/L (132-148)
[2016-11-27 06:58] LABS: ALB/GLOB RATIO 0.6 (1.0-2.1); ALKALINE PHOSPHATASE 119 U/L (38-126); ALT/SGPT 32 U/L (21-72); AST/SGOT 21 U/L (17-59); BILIRUBIN,TOTAL 0.8 mg/dL (0.2-1.3); BLOOD UREA NITROGEN 8 mg/dL (9-20); CARBON DIOXIDE 21 mmol/L (22-30); GFR AFRICAN-AMERICAN > 60; TOTAL PROTEIN 4.5 g/dL (6.3-8.3)
[2016-11-27 06:59] LABS: CALCIUM 6.6 mg/dl (8.6-10.4); GLUCOSE,RANDOM 104 mg/dL (75-110); INR 1.3; MAGNESIUM 1.5 mg/dL (1.6-2.3); PHOSPHOROUS 3.1 mg/dL (2.5-4.5)
--- NOTE | 2016-11-27 07:12 | CP.PCM.PN ---
<Radha Carrillo - Last Filed: 11/27/16 09:58> Subjective - Date & Time of Evaluation Date of Evaluation: 11/27/16 Time of Evaluation: 07:43 - Subjective Subjective: Cardiology Progress note for Dr. Ruiz Patient seen and examined at bedside. POD#1 rigid sigmnoidoscopy and exlap- tumor was unable to be resected due to multiple areas of fixation. Patient had no acute events overnight as per nursing and VSS this AM. Patient denied any headache, dizziness, chest pain, palpitations, SOB, cough, vomiting, bladder complaints, pain/swelling in his legs bilaterally. He continues to have b/l UE swelling and tenderness at incision site. He also complained of nausea and flatulence. Patient is tolerating liquid diet. Objective - Vital Signs/Intake and Output Vital Signs (last 24 hours): Temp Pulse Resp BP Pulse Ox 98.2 F 99 H 15 162/67 H 95 11/27/16 04:00 11/27/16 05:14 11/27/16 05:14 11/27/16 05:14 11/27/16 05:14 Intake and Output: 11/27/16 11/27/16 06:59 18:59 Intake Total 1875 Output Total 330 Balance 1545 - Medications Medications: Current Medications Dextrose (Dextrose 50% Inj) 0 ml IV STAT PRN; Protocol PRN Reason: Hyglycemia Protocol Last Admin: 11/18/16 06:21 Dose: 50 ml Famotidine (Pepcid) 20 mg IVP Q12 [facility] Last Admin: 11/26/16 22:54 Dose: 20 mg Hydromorphone HCl (Dilaudid) 0.5 mg IVP Q4H PRN PRN Reason: Pain, moderate (4-7) Last Admin: 11/26/16 23:28 Dose: 0.5 mg Imipenem/Cilastatin Sodium 500 (mg/ Sodium Chloride) 100 mls @ 100 mls/hr IVPB Q6H [facility] Last Admin: 11/27/16 02:00 Dose: 100 mls/hr Metronidazole (Flagyl) 500 mg in 100 mls @ 100 mls/hr IVPB Q8H [facility] Last Admin: 11/27/16 03:00 Dose: 100 mls/hr Fluconazole (Diflucan Iv 100 Mg/50 Ml Ns) 50 mls @ 100 mls/hr IVPB DAILY [facility] Last Admin: 11/26/16 10:24 Dose: 50 mls Heparin Sodium/Sodium Chloride (Heparin 33718 Units/250ml 1/2 Normal Saline) 25 ,000 units in 250 mls @ 16.411 mls/hr IV .[id number] PRN; Protocol; 18 UNITS/KG/HR PRN Reason: PROTOCOL Last Admin: 11/25/16 17:00 Dose: 18 units/kg/hr, 16.411 mls/hr Lactated Ringer's (Lactated Ringer's) 1,000 mls @ 125 mls/hr IV .Q8H [facility] Last Admin: 11/27/16 04:00 Dose: 125 mls/hr Insulin Aspart (Novolog) 0 unit SC ACHS [facility] PRN Reason: Protocol Last Admin: 11/26/16 22:42 Dose: Not Given Insulin Detemir (Levemir) 15 unit SC DAILY [facility] Last Admin: 11/24/16 09:28 Dose: 15 unit Ondansetron HCl (Zofran Inj) 4 mg IVP Q6H PRN PRN Reason: Nausea/Vomiting Last Admin: 11/27/16 05:00 Dose: 4 mg Saccharomyces Boulardii (Florastor) 250 mg PO BID [facility] Last Admin: 11/26/16 17:16 Dose: 250 mg - Labs Labs: 11/27/16 06:42 11/26/16 06:45 PT 14.8 SECONDS (9.7-12.2) H 11/27/16 06:42 INR 1.3 11/27/16 06:42 APTT 43 SECONDS (21-34) H D 11/26/16 06:45 - Constitutional Appears: No Acute Distress - Head Exam Head Exam: NORMOCEPHALIC - Eye Exam Eye Exam: Normal appearance. absent: Conjunctival injection, Scleral icterus - ENT Exam ENT Exam: Mucous Membranes Moist - Respiratory Exam Respiratory Exam: Clear to Ausculation Bilateral, NORMAL BREATHING PATTERN. absent: Accessory Muscle Use, Rales, Rhonchi, Wheezes - Cardiovascular Exam Cardiovascular Exam: REGULAR RHYTHM, RRR, +S1, +S2 - GI/Abdominal Exam GI & Abdominal Exam: Soft, Tenderness (appropriate postop) - Extremities Exam Extremities Exam: Pedal Edema (+1 b/l) - Neurological Exam Neurological Exam: Alert, Awake, Oriented x3 - Psychiatric Exam Psychiatric exam: Normal Affect, Normal Mood - Skin Skin Exam: Dry, Warm Assessment and Plan - Assessment and Plan (Free Text) Assessment: 66 yo M PMHx HTN and DM who originally presented s/p fall via EMS on 11/16/16 and later found to have invasive adenocarcinoma of the rectosigmoid colon involving the bladder wall Cardiology was consulted for surgery risk assessment Plan: -POD#1 rigid sigmnoidoscopy and exlap- tumor was unable to be resected due to multiple areas of fixation -Patient has hx of HTN and DM2 -11/15 EKG: sinus tachycardia HR @ 126bpm -Lipid panel: T Cholesterol: 65 LDL: 31 HDL: 25 -HgbA1c: 11.5 -Patient to be started on heparin gtt for b/l UE DVT -Echo 11/25/16 EF 51% [50-55%] LV systolic function normal No aortic regurgitation is present No mitral valve regurgitation noted Mild tricuspid regurgitation Mild-mod pulmonary hypertension No pulmonic valvular regurgitation -Lexiscan completed on 11/25 defect in mid-anteroseptal wall defect in basal anteroseptal wall Fixed apical defect old MN small inferior wall defect -Echo 10/14/16 EF 46% Overall LV systolic function appears borderline and there is a suggestion of septal hypokinesis -HgbA1c: 11.5 Levemir 15U sc daily RISS -Patient to be restarted on heparin gtt for b/l UE DVT -Continue current management -Patient needs outpatient cardiology evaluation -Upon discharge patient is to follow up in [facility] for continued cardiology observation and treatment with Dr. Ruiz Case discussed with Dr. Sara Carrillo PGY2 <Jose Ruiz - Last Filed: 12/26/16 07:30> Objective - Vital Signs/Intake and Output Vital Signs (last 24 hours): Temp Pulse Resp BP Pulse Ox 98.4 F 100 H 20 110/70 99 12/22/16 23:25 12/22/16 23:25 12/22/16 23:25 12/22/16 23:25 12/22/16 23:25 - Labs Labs: 12/21/16 06:30 12/21/16 06:30 PT 15.0 SECONDS (9.7-12.2) H 12/03/16 07:08 INR 1.3 08/01/17 07:08 APTT 37 SECONDS (21-34) H 12/03/16 07:08 Attending/Attestation - Attestation I have personally seen and examined this patient.: Yes I have fully participated in the care of the patient.: Yes I have reviewed all pertinent clinical information, including history, physical exam and plan: Yes Notes (Text): 12/26/16 07:30 continue cardiac meds rate controlled condition guarded
--- NOTE | 2016-11-27 08:11 | CP.PCM.PN ---
Subjective - Date & Time of Evaluation Date of Evaluation: 11/27/16 Time of Evaluation: 07:00 - Subjective Subjective: Patient seen and examined this morning, no acute events over night. Patient reports nausea denies vomiting. Reports abdominal pain well managed w/ pain medication. Mild tenderness along surgical incision site. Objective - Vital Signs/Intake and Output Vital Signs (last 24 hours): Temp Pulse Resp BP Pulse Ox 98.2 F 105 H 22 151/80 H 95 11/27/16 04:00 11/27/16 06:44 11/27/16 06:44 11/27/16 06:44 11/27/16 06:44 Intake and Output: 11/27/16 11/27/16 06:59 18:59 Intake Total 1875 Output Total 330 Balance 1545 - Medications Medications: Current Medications Dextrose (Dextrose 50% Inj) 0 ml IV STAT PRN; Protocol PRN Reason: Hyglycemia Protocol Last Admin: 11/18/16 06:21 Dose: 50 ml Famotidine (Pepcid) 20 mg IVP Q12 [facility] Last Admin: 11/26/16 22:54 Dose: 20 mg Hydromorphone HCl (Dilaudid) 0.5 mg IVP Q4H PRN PRN Reason: Pain, moderate (4-7) Last Admin: 11/26/16 23:28 Dose: 0.5 mg Imipenem/Cilastatin Sodium 500 (mg/ Sodium Chloride) 100 mls @ 100 mls/hr IVPB Q6H [facility] Last Admin: 11/27/16 02:00 Dose: 100 mls/hr Metronidazole (Flagyl) 500 mg in 100 mls @ 100 mls/hr IVPB Q8H [facility] Last Admin: 11/27/16 03:00 Dose: 100 mls/hr Fluconazole (Diflucan Iv 100 Mg/50 Ml Ns) 50 mls @ 100 mls/hr IVPB DAILY [facility] Last Admin: 11/26/16 10:24 Dose: 50 mls Heparin Sodium/Sodium Chloride (Heparin 31087 Units/250ml 1/2 Normal Saline) 25 ,000 units in 250 mls @ 16.411 mls/hr IV .[id number] PRN; Protocol; 18 UNITS/KG/HR PRN Reason: PROTOCOL Last Admin: 11/25/16 17:00 Dose: 18 units/kg/hr, 16.411 mls/hr Lactated Ringer's (Lactated Ringer's) 1,000 mls @ 125 mls/hr IV .Q8H [facility] Last Admin: 11/27/16 04:00 Dose: 125 mls/hr Insulin Aspart (Novolog) 0 unit SC ACHS [facility] PRN Reason: Protocol Last Admin: 11/26/16 22:42 Dose: Not Given Insulin Detemir (Levemir) 15 unit SC DAILY [facility] Last Admin: 11/24/16 09:28 Dose: 15 unit Ondansetron HCl (Zofran Inj) 4 mg IVP Q6H PRN PRN Reason: Nausea/Vomiting Last Admin: 11/27/16 05:00 Dose: 4 mg Saccharomyces Boulardii (Florastor) 250 mg PO BID [facility] Last Admin: 11/26/16 17:16 Dose: 250 mg - Labs Labs: 11/27/16 06:42 11/27/16 06:42 PT 14.8 SECONDS (9.7-12.2) H 11/27/16 06:42 INR 1.3 11/27/16 06:42 APTT 43 SECONDS (21-34) H D 11/26/16 06:45 - Constitutional Appears: No Acute Distress - Head Exam Head Exam: NORMOCEPHALIC - Eye Exam Eye Exam: Normal appearance - ENT Exam ENT Exam: Mucous Membranes Moist - Respiratory Exam Respiratory Exam: NORMAL BREATHING PATTERN - Cardiovascular Exam Cardiovascular Exam: +S1, +S2 - GI/Abdominal Exam GI & Abdominal Exam: Soft, Tenderness - Neurological Exam Neurological Exam: Alert, Awake, Oriented x3 - Psychiatric Exam Psychiatric exam: Normal Mood - Skin Skin Exam: Dry, Warm Assessment and Plan - Assessment and Plan (Free Text) Assessment: 66M s/p exploratory laparotomy POD1,w/ findings of unresectable rectosigmoid mass -OK to start heparin drip from surgical standpoint -Please hold oral anticoagulation for at least another 24 hours -Patient will need portacath placement -Regular diet -c/w analgesic -C/w anti-emetic -GI ppx -Further recs per Dr. Amin
[2016-11-27] MEDS: (Novolog) Insulin Aspart, Recombinant 100 u/ml 10 ml vial SC SCH ×4 (08:15→22:08)
[2016-11-27] MEDS: Saccharomyces Boulardi 250 mg Cap PO SCH ×2 (09:32→17:49)
[2016-11-27] MEDS: Fluconazole IV 100mg/50 ml NS 50 ML IVPB SCH (09:33)
[2016-11-27] MEDS ORDERED: Ferric Sodium Gluconat Complex 62.5 mg/5 ml Vial IVPB SCH (10:00)
--- NOTE | 2016-11-27 13:08 | CP.CCUPN ---
<Thor Vincentssedson Daugherty - Last Filed: 11/27/16 14:58> CCU Subjective - Physician Review Subjective (Free Text): 11/27/16 14:41 Patient was seen and examined at bedside in the AM and the afternoon. Patient stated he vomited 3x this morning after he had a mixture of hernandez and milk. Patient states now this afternoon he does not feel nauseous. Patient denies shortness of breath, chest pain or abdominal pain. Patient states he "just feels tired." 11/27/16 14:58 11/27/16 15:00 CCU Objective - Vital Signs / Intake & Output Vital Signs (Last 4 hours): Vital Signs Temp Pulse Resp BP Pulse Ox 11/27/16 12:00 97.6 F 118 H 14 124/76 100 11/27/16 11:00 124 H 17 124/76 98 11/27/16 10:00 113 H 19 101/79 96 Intake and Output (Last 8hrs): Intake & Output 11/26/16 11/27/16 11/27/16 22:59 06:59 14:59 Intake Total 1630 1200 670 Output Total 210 240 300 Balance 1420 960 370 Intake: Intake, IV Amount 950 1200 500 Left PICC 950 1200 500 Oral 680 170 Output: Urine 210 240 300 Urethral (Huerta) 210 240 300 - Physical Exam Head: Positive for: Atraumatic, Normocephalic Pupils: Positive for: PERRL Extroacular Muscles: Positive for: EOMI Conjunctiva: Positive for: Normal Respiratory/Chest: Positive for: Clear to Auscultation. Negative for: Respiratory Distress, Accessory Muscle Use, Rales, Rhonchi Cardiovascular: Positive for: Regular Rate and Rhythm, Normal S1, S2 Abdomen: Positive for: Normal Bowel Sounds (large body habiatus ). Negative for : Tenderness Upper Extremity: Positive for: Edema. Negative for: Cyanosis Lower Extremity: Positive for: Normal Inspection. Negative for: CALF TENDERNESS Neurological: Positive for: GCS=15, Speech Normal Skin: Positive for: Warm, Dry, Normal Color Psychiatric: Positive for: Alert, Oriented x 3, Normal Insight, Normal Concentration, Depressed Mood - Medications Active Medications: Active Medications Generic Name Dose Route Start Last Admin Trade Name Freq PRN Reason Stop Dose Admin Dextrose 0 ml 11/18/16 02:13 11/18/16 06:21 Dextrose 50% Inj IV 50 ml STAT PRN Administration Hyglycemia Protocol Protocol Famotidine 20 mg 11/27/16 10:00 11/27/16 11:06 Pepcid PO Not Given Q12 DOREEN Hydromorphone HCl 0.5 mg 11/26/16 11:45 11/26/16 23:28 Dilaudid IVP 0.5 mg Q4H PRN Administration Pain, moderate (4-7) Imipenem/Cilastatin Sodium 500 100 mls @ 100 mls/hr 11/17/16 08:45 11/27/16 10:00 mg/ Sodium Chloride IVPB 100 mls/hr Q6H DOREEN Administration Metronidazole 500 mg in 100 mls @ 100 mls/hr 11/17/16 10:00 11/27/16 09:32 Flagyl IVPB 100 mls/hr Q8H DOREEN Administration Fluconazole 50 mls @ 100 mls/hr 11/19/16 10:00 11/27/16 09:33 Diflucan Iv 100 Mg/50 Ml Ns IVPB 100 mls/hr DAILY DOREEN Administration Heparin Sodium/Sodium Chloride 25,000 units in 250 mls @ 16.411 mls/hr 15:01 11/25/16 17:00 Heparin 71479 Units/250ml 1/2 Normal Saline IV 18 units/kg/hr .[id number] PRN 16.411 mls/hr PROTOCOL Administration Protocol 18 UNITS/KG/HR Lactated Ringer's 1,000 mls @ 75 mls/hr 11/27/16 08:27 11/27/16 09:34 Lactated Ringer's IV 75 mls/hr .[id number] DOREEN Administration Insulin Aspart 0 unit 11/16/16 07:30 11/27/16 11:47 Novolog SC Not Given ACHS [facility] Protocol Insulin Detemir 15 unit 11/16/16 10:30 11/24/16 09:28 Levemir SC 15 unit DAILY DOREEN Administration Ondansetron HCl 4 mg 11/16/16 05:40 11/27/16 05:00 Zofran Inj IVP 4 mg Q6H PRN Administration Nausea/Vomiting Saccharomyces Boulardii 250 mg 11/24/16 10:45 11/27/16 09:32 Florastor PO 250 mg BID DOREEN Administration - Patient Studies Lab Studies: Microbiology Studies 11/23/16 18:00 Blood Culture - Preliminary Blood-Venous NO GROWTH AFTER 3 DAYS 11/23/16 20:00 Blood Culture - Preliminary Blood-Venous NO GROWTH AFTER 3 DAYS Lab Studies 11/27/16 11/27/16 11/27/16 Range/Units 12:28 11:28 07:49 WBC (4.8-10.8) K/uL RBC (4.40-5.90) Mil/uL Hgb (12.0-18.0) g/dL Hct (35.0-51.0) % MCV (80.0-94.0) fL MCH (27.0-31.0) pg MCHC (33.0-37.0) g/dL RDW (11.5-14.5) % Plt Count (130-400) K/uL MPV (7.2-11.7) fL Neut % (Auto) (50.0-75.0) % Lymph % (Auto) (20.0-40.0) % [place] % (Auto) (0.0-10.0) % Eos % (Auto) (0.0-4.0) % Baso % (Auto) (0.0-2.0) % Neut # (1.8-7.0) K/uL Lymph # (1.0-4.3) K/uL [place] # (0.0-0.8) K/uL Eos # (0.0-0.7) K/uL Baso # (0.0-0.2) K/uL PT (9.7-12.2) SECONDS INR APTT 34 D (21-34) SECONDS Sodium (132-148) mmol/L Potassium (3.6-5.2) mmol/L Chloride (98-107) mmol/L Carbon Dioxide (22-30) mmol/L Anion Gap (10-20) BUN (9-20) mg/dL Creatinine (0.8-1.5) MG/DL Est GFR ( Amer) Est GFR (Non-Af Amer) POC Glucose (mg/dL) 135 H 121 H (65-110) mg/dL Random Glucose (75-110) mg/dL Calcium (8.6-10.4) mg/dl Phosphorus (2.5-4.5) mg/dL Magnesium (1.6-2.3) mg/dL Total Bilirubin (0.2-1.3) mg/dL AST (17-59) U/L ALT (21-72) U/L Alkaline Phosphatase (38-126) U/L Total Protein (6.3-8.3) g/dL Albumin (3.5-5.0) g/dL Globulin (2.2-3.9) gm/dL Albumin/Globulin Ratio (1.0-2.1) Blood Type Antibody Screen 11/27/16 11/27/16 11/27/16 Range/Units 06:42 06:42 06:42 WBC 13.6 H (4.8-10.8) K/uL RBC 4.46 (4.40-5.90) Mil/uL Hgb 10.5 L (12.0-18.0) g/dL Hct 31.9 L (35.0-51.0) % MCV 71.6 L (80.0-94.0) fL MCH 23.5 L (27.0-31.0) pg MCHC 32.9 L (33.0-37.0) g/dL RDW 23.4 H (11.5-14.5) % Plt Count 194 (130-400) K/uL MPV 8.7 (7.2-11.7) fL Neut % (Auto) 81.8 H (50.0-75.0) % Lymph % (Auto) 11.7 L (20.0-40.0) % [place] % (Auto) 6.0 (0.0-10.0) % Eos % (Auto) 0.3 (0.0-4.0) % Baso % (Auto) 0.2 (0.0-2.0) % Neut # 11.2 H (1.8-7.0) K/uL Lymph # 1.6 (1.0-4.3) K/uL R[place] # 0.8 (0.0-0.8) K/uL Eos # 0.0 (0.0-0.7) K/uL Baso # 0.0 (0.0-0.2) K/uL PT 14.8 H (9.7-12.2) SECONDS INR 1.3 APTT (21-34) SECONDS Sodium 137 (132-148) mmol/L Potassium 3.7 (3.6-5.2) mmol/L Chloride 105 (98-107) mmol/L Carbon Dioxide 21 L (22-30) mmol/L Anion Gap 15 (10-20) BUN 8 L (9-20) mg/dL Creatinine 0.4 L (0.8-1.5) MG/DL Est GFR ( Amer) > 60 Est GFR (Non-Af Amer) > 60 POC Glucose (mg/dL) (65-110) mg/dL Random Glucose 104 (75-110) mg/dL Calcium 6.6 L (8.6-10.4) mg/dl Phosphorus 3.1 (2.5-4.5) mg/dL Magnesium 1.5 L (1.6-2.3) mg/dL Total Bilirubin 0.8 (0.2-1.3) mg/dL AST 21 (17-59) U/L ALT 32 (21-72) U/L Alkaline Phosphatase 119 (38-126) U/L Total Protein 4.5 L (6.3-8.3) g/dL Albumin 1.7 L (3.5-5.0) g/dL Globulin 2.8 (2.2-3.9) gm/dL Albumin/Globulin Ratio 0.6 L (1.0-2.1) Blood Type Antibody Screen 11/26/16 11/26/16 11/26/16 Range/Units 22:08 21:12 16:16 WBC (4.8-10.8) K/uL RBC (4.40-5.90) Mil/uL Hgb (12.0-18.0) g/dL Hct (35.0-51.0) % MCV (80.0-94.0) fL MCH (27.0-31.0) pg MCHC (33.0-37.0) g/dL RDW (11.5-14.5) % Plt Count (130-400) K/uL MPV (7.2-11.7) fL Neut % (Auto) (50.0-75.0) % Lymph % (Auto) (20.0-40.0) % [place] % (Auto) (0.0-10.0) % Eos % (Auto) (0.0-4.0) % Baso % (Auto) (0.0-2.0) % Neut # (1.8-7.0) K/uL Lymph # (1.0-4.3) K/uL R[place] # (0.0-0.8) K/uL Eos # (0.0-0.7) K/uL Baso # (0.0-0.2) K/uL PT (9.7-12.2) SECONDS INR APTT (21-34) SECONDS Sodium (132-148) mmol/L Potassium (3.6-5.2) mmol/L Chloride (98-107) mmol/L Carbon Dioxide (22-30) mmol/L Anion Gap (10-20) BUN (9-20) mg/dL Creatinine (0.8-1.5) MG/DL Est GFR ( Amer) Est GFR (Non-Af Amer) POC Glucose (mg/dL) 125 H 43 L 205 H (65-110) mg/dL Random Glucose (75-110) mg/dL Calcium (8.6-10.4) mg/dl Phosphorus (2.5-4.5) mg/dL Magnesium (1.6-2.3) mg/dL Total Bilirubin (0.2-1.3) mg/dL AST (17-59) U/L ALT (21-72) U/L Alkaline Phosphatase (38-126) U/L Total Protein (6.3-8.3) g/dL Albumin (3.5-5.0) g/dL Globulin (2.2-3.9) gm/dL Albumin/Globulin Ratio (1.0-2.1) Blood Type Antibody Screen 11/25/16 Range/Units 07:10 WBC (4.8-10.8) K/uL RBC (4.40-5.90) Mil/uL Hgb (12.0-18.0) g/dL Hct (35.0-51.0) % MCV (80.0-94.0) fL MCH (27.0-31.0) pg MCHC (33.0-37.0) g/dL RDW (11.5-14.5) % Plt Count (130-400) K/uL MPV (7.2-11.7) fL Neut % (Auto) (50.0-75.0) % Lymph % (Auto) (20.0-40.0) % [place] % (Auto) (0.0-10.0) % Eos % (Auto) (0.0-4.0) % Baso % (Auto) (0.0-2.0) % Neut # (1.8-7.0) K/uL Lymph # (1.0-4.3) K/uL [place] # (0.0-0.8) K/uL Eos # (0.0-0.7) K/uL Baso # (0.0-0.2) K/uL PT (9.7-12.2) SECONDS INR APTT (21-34) SECONDS Sodium (132-148) mmol/L Potassium (3.6-5.2) mmol/L Chloride (98-107) mmol/L Carbon Dioxide (22-30) mmol/L Anion Gap (10-20) BUN (9-20) mg/dL Creatinine (0.8-1.5) MG/DL Est GFR ( Amer) Est GFR (Non-Af Amer) POC Glucose (mg/dL) (65-110) mg/dL Random Glucose (75-110) mg/dL Calcium (8.6-10.4) mg/dl Phosphorus (2.5-4.5) mg/dL Magnesium (1.6-2.3) mg/dL Total Bilirubin (0.2-1.3) mg/dL AST (17-59) U/L ALT (21-72) U/L Alkaline Phosphatase (38-126) U/L Total Protein (6.3-8.3) g/dL Albumin (3.5-5.0) g/dL Globulin (2.2-3.9) gm/dL Albumin/Globulin Ratio (1.0-2.1) Blood Type O POSITIVE Antibody Screen Negative Laboratory Results - last 24 hr 11/25/16 11/26/16 11/26/16 07:10 16:16 21:12 WBC RBC Hgb Hct MCV MCH MCHC RDW Plt Count MPV Neut % (Auto) Lymph % (Auto) Rin[place] % (Auto) Eos % (Auto) Baso % (Auto) Neut # Lymph # Rin[place] # Eos # Baso # PT INR APTT Sodium Potassium Chloride Carbon Dioxide Anion Gap BUN Creatinine Est GFR ( Amer) Est GFR (Non-Af Amer) POC Glucose (mg/dL) 205 H 43 L Random Glucose Calcium Phosphorus Magnesium Total Bilirubin AST ALT Alkaline Phosphatase Total Protein Albumin Globulin Albumin/Globulin Ratio Blood Type O POSITIVE Antibody Screen Negative 11/26/16 11/27/16 11/27/16 22:08 06:42 06:42 WBC 13.6 H RBC 4.46 Hgb 10.5 L Hct 31.9 L MCV 71.6 L MCH 23.5 L MCHC 32.9 L RDW 23.4 H Plt Count 194 MPV 8.7 Neut % (Auto) 81.8 H Lymph % (Auto) 11.7 L [place] % (Auto) 6.0 Eos % (Auto) 0.3 Baso % (Auto) 0.2 Neut # 11.2 H Lymph # 1.6 Rincon # 0.8 Eos # 0.0 Baso # 0.0 PT INR APTT Sodium 137 Potassium 3.7 Chloride 105 Carbon Dioxide 21 L Anion Gap 15 BUN 8 L Creatinine 0.4 L Est GFR ( Amer) > 60 Est GFR (Non-Af Amer) > 60 POC Glucose (mg/dL) 125 H Random Glucose 104 Calcium 6.6 L Phosphorus 3.1 Magnesium 1.5 L Total Bilirubin 0.8 AST 21 ALT 32 Alkaline Phosphatase 119 Total Protein 4.5 L Albumin 1.7 L Globulin 2.8 Albumin/Globulin Ratio 0.6 L Blood Type Antibody Screen 11/27/16 11/27/16 11/27/16 06:42 07:49 11:28 WBC RBC Hgb Hct MCV MCH MCHC RDW Plt Count MPV Neut % (Auto) Lymph % (Auto) [place] % (Auto) Eos % (Auto) Baso % (Auto) Neut # Lymph # [place] # Eos # Baso # PT 14.8 H INR 1.3 APTT Sodium Potassium Chloride Carbon Dioxide Anion Gap BUN Creatinine Est GFR ( Amer) Est GFR (Non-Af Amer) POC Glucose (mg/dL) 121 H 135 H Random Glucose Calcium Phosphorus Magnesium Total Bilirubin AST ALT Alkaline Phosphatase Total Protein Albumin Globulin Albumin/Globulin Ratio Blood Type Antibody Screen 11/27/16 12:28 WBC RBC Hgb Hct MCV MCH MCHC RDW Plt Count MPV Neut % (Auto) Lymph % (Auto) [place] % (Auto) Eos % (Auto) Baso % (Auto) Neut # Lymph # Rin[place] # Eos # Baso # PT INR APTT 34 D Sodium Potassium Chloride Carbon Dioxide Anion Gap BUN Creatinine Est GFR ( Amer) Est GFR (Non-Af Amer) POC Glucose (mg/dL) Random Glucose Calcium Phosphorus Magnesium Total Bilirubin AST ALT Alkaline Phosphatase Total Protein Albumin Globulin Albumin/Globulin Ratio Blood Type Antibody Screen Fingerstick Blood Sugar Results: 205 Review of Systems - Constitutional Constitutional: Other (feels tired ). absent: Fever - Cardiovascular Cardiovascular: absent: Chest Pain, Dyspnea - Respiratory Respiratory: absent: Dyspnea - Gastrointestinal Gastrointestinal: Nausea, Vomiting. absent: Constipation - Genitourinary Genitourinary: absent: Dysuria - Neurological Neurological: absent: Dizziness, Headaches Critical Care Progress Note - Nutrition Nutrition: Nutrition Category Date Time Status Regular Diet [DIET] Diets 11/27/16 Breakfast Active Assessment/Plan - Assessment and Plan (Free Text) Plan: Patient is one day s/p exp laparotomy for a rectosigmoid mass. In the OR the patient became hypotensive and surgery was canceled because of adhesions. Patient was started on pressors and extubated in the recovery room. Patient awake and responsive now. Neuro: Patient is alert and oriented x3 Patient's mood seems a bit flat today. Pulm: No acute issues CV: Cardiac Consult: Dr. 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 Burns --> help appreciated 11/25: Blood cultures are negative after [address]. [address] Burns, con't tx for minimum of 14 days; Primaxin and Flagyl both started on 11/17. Yeast Budding: (positive) * Fluconazole 100mg IVPB daily DVT proph: SCDs, heparin drip GI Proph: Pepcid 20mg IVP Q12h Code Status: full code Disposition: Transferred to Medical Floor Case discussed with Dr. Jace Vincent PGY-1 <Roland Mccormick - Last Filed: 11/27/16 17:04> CCU Objective - Vital Signs / Intake & Output Vital Signs (Last 4 hours): Vital Signs Temp Pulse Resp BP Pulse Ox 11/27/16 16:00 97.9 F 122 H 19 143/65 100 11/27/16 14:00 116 H 14 139/59 L 97 Intake and Output (Last 8hrs): Intake & Output 11/27/16 11/27/16 11/27/16 06:59 14:59 22:59 Intake Total 1200 670 636 Output Total 240 300 100 Balance 960 370 536 Weight 230 lb Intake: Intake, IV Amount 1200 500 516 Left Antecubital 516 Left PICC 1200 500 Oral 170 120 Output: Urine 240 300 Urethral (Huerta) 240 300 Stool 50 Emesis 50 Other: # Bowel Movements 1 - Medications Active Medications: Active Medications Generic Name Dose Route Start Last Admin Trade Name Freq PRN Reason Stop Dose Admin Dextrose 0 ml 11/18/16 02:13 11/18/16 06:21 Dextrose 50% Inj IV 50 ml STAT PRN Administration Hyglycemia Protocol Protocol Famotidine 20 mg 11/27/16 10:00 11/27/16 11:06 Pepcid PO Not Given Q12 DOREEN Hydromorphone HCl 0.5 mg 11/26/16 11:45 11/26/16 23:28 Dilaudid IVP 0.5 mg Q4H PRN Administration Pain, moderate (4-7) Imipenem/Cilastatin Sodium 500 100 mls @ 100 mls/hr 11/17/16 08:45 11/27/16 14:00 mg/ Sodium Chloride IVPB 100 mls/hr Q6H DOREEN Administration Metronidazole 500 mg in 100 mls @ 100 mls/hr 11/17/16 10:00 11/27/16 09:32 Flagyl IVPB 100 mls/hr Q8H DOREEN Administration Fluconazole 50 mls @ 100 mls/hr 11/19/16 10:00 11/27/16 09:33 Diflucan Iv 100 Mg/50 Ml Ns IVPB 100 mls/hr DAILY DOREEN Administration Lactated Ringer's 1,000 mls @ 75 mls/hr 11/27/16 08:27 11/27/16 09:34 Lactated Ringer's IV 75 mls/hr .[id number] DOREEN Administration Heparin Sodium/Sodium Chloride 25,000 units in 250 mls @ 18.779 mls/hr 16:11 Heparin 03686 Units/250ml 1/2 Normal Saline IV .[id number] PRN PROTOCOL Protocol 18 UNITS/KG/HR Insulin Aspart 0 unit 11/16/16 07:30 11/27/16 16:35 Novolog SC 2 unit ACHS DOREEN Administration Protocol Insulin Detemir 15 unit 11/16/16 10:30 11/24/16 09:28 Levemir SC 15 unit DAILY DOREEN Administration Ondansetron HCl 4 mg 11/16/16 05:40 11/27/16 16:06 Zofran Inj IVP 4 mg Q6H PRN Administration Nausea/Vomiting Saccharomyces Boulardii 250 mg 11/24/16 10:45 11/27/16 09:32 Florastor PO 250 mg BID DOREEN Administration - Patient Studies Lab Studies: Microbiology Studies 11/26/16 11:00 Ova and Parasite Concentrate Exam - Final Rectum 11/23/16 18:00 Blood Culture - Preliminary Blood-Venous NO GROWTH AFTER 3 DAYS 11/23/16 20:00 Blood Culture - Preliminary Blood-Venous NO GROWTH AFTER 3 DAYS Lab Studies 11/27/16 11/27/16 11/27/16 Range/Units 16:03 12:28 11:28 WBC (4.8-10.8) K/uL RBC (4.40-5.90) Mil/uL Hgb (12.0-18.0) g/dL Hct (35.0-51.0) % MCV (80.0-94.0) fL MCH (27.0-31.0) pg MCHC (33.0-37.0) g/dL RDW (11.5-14.5) % Plt Count (130-400) K/uL MPV (7.2-11.7) fL Neut % (Auto) (50.0-75.0) % Lymph % (Auto) (20.0-40.0) % [place] % (Auto) (0.0-10.0) % Eos % (Auto) (0.0-4.0) % Baso % (Auto) (0.0-2.0) % Neut # (1.8-7.0) K/uL Lymph # (1.0-4.3) K/uL [place] # (0.0-0.8) K/uL Eos # (0.0-0.7) K/uL Baso # (0.0-0.2) K/uL PT (9.7-12.2) SECONDS INR APTT 34 D (21-34) SECONDS Sodium (132-148) mmol/L Potassium (3.6-5.2) mmol/L Chloride (98-107) mmol/L Carbon Dioxide (22-30) mmol/L Anion Gap (10-20) BUN (9-20) mg/dL Creatinine (0.8-1.5) MG/DL Est GFR ( Amer) Est GFR (Non-Af Amer) POC Glucose (mg/dL) 162 H 135 H (65-110) mg/dL Random Glucose (75-110) mg/dL Calcium (8.6-10.4) mg/dl Phosphorus (2.5-4.5) mg/dL Magnesium (1.6-2.3) mg/dL Total Bilirubin (0.2-1.3) mg/dL AST (17-59) U/L ALT (21-72) U/L Alkaline Phosphatase (38-126) U/L Total Protein (6.3-8.3) g/dL Albumin (3.5-5.0) g/dL Globulin (2.2-3.9) gm/dL Albumin/Globulin Ratio (1.0-2.1) 11/27/16 11/27/16 11/27/16 Range/Units 07:49 06:42 06:42 WBC (4.8-10.8) K/uL RBC (4.40-5.90) Mil/uL Hgb (12.0-18.0) g/dL Hct (35.0-51.0) % MCV (80.0-94.0) fL MCH (27.0-31.0) pg MCHC (33.0-37.0) g/dL RDW (11.5-14.5) % Plt Count (130-400) K/uL MPV (7.2-11.7) fL Neut % (Auto) (50.0-75.0) % Lymph % (Auto) (20.0-40.0) % [place] % (Auto) (0.0-10.0) % Eos % (Auto) (0.0-4.0) % Baso % (Auto) (0.0-2.0) % Neut # (1.8-7.0) K/uL Lymph # (1.0-4.3) K/uL [place] # (0.0-0.8) K/uL Eos # (0.0-0.7) K/uL Baso # (0.0-0.2) K/uL PT 14.8 H (9.7-12.2) SECONDS INR 1.3 APTT (21-34) SECONDS Sodium 137 (132-148) mmol/L Potassium 3.7 (3.6-5.2) mmol/L Chloride 105 (98-107) mmol/L Carbon Dioxide 21 L (22-30) mmol/L Anion Gap 15 (10-20) BUN 8 L (9-20) mg/dL Creatinine 0.4 L (0.8-1.5) MG/DL Est GFR ( Amer) > 60 Est GFR (Non-Af Amer) > 60 POC Glucose (mg/dL) 121 H (65-110) mg/dL Random Glucose 104 (75-110) mg/dL Calcium 6.6 L (8.6-10.4) mg/dl Phosphorus 3.1 (2.5-4.5) mg/dL Magnesium 1.5 L (1.6-2.3) mg/dL Total Bilirubin 0.8 (0.2-1.3) mg/dL AST 21 (17-59) U/L ALT 32 (21-72) U/L Alkaline Phosphatase 119 (38-126) U/L Total Protein 4.5 L (6.3-8.3) g/dL Albumin 1.7 L (3.5-5.0) g/dL Globulin 2.8 (2.2-3.9) gm/dL Albumin/Globulin Ratio 0.6 L (1.0-2.1) 07/11/26/16 11/26/16 Range/Units 06:42 22:08 21:12 WBC 13.6 H (4.8-10.8) K/uL RBC 4.46 (4.40-5.90) Mil/uL Hgb 10.5 L (12.0-18.0) g/dL Hct 31.9 L (35.0-51.0) % MCV 71.6 L (80.0-94.0) fL MCH 23.5 L (27.0-31.0) pg MCHC 32.9 L (33.0-37.0) g/dL RDW 23.4 H (11.5-14.5) % Plt Count 194 (130-400) K/uL MPV 8.7 (7.2-11.7) fL Neut % (Auto) 81.8 H (50.0-75.0) % Lymph % (Auto) 11.7 L (20.0-40.0) % [place] % (Auto) 6.0 (0.0-10.0) % Eos % (Auto) 0.3 (0.0-4.0) % Baso % (Auto) 0.2 (0.0-2.0) % Neut # 11.2 H (1.8-7.0) K/uL Lymph # 1.6 (1.0-4.3) K/uL [place] # 0.8 (0.0-0.8) K/uL Eos # 0.0 (0.0-0.7) K/uL Baso # 0.0 (0.0-0.2) K/uL PT (9.7-12.2) SECONDS INR APTT (21-34) SECONDS Sodium (132-148) mmol/L Potassium (3.6-5.2) mmol/L Chloride (98-107) mmol/L Carbon Dioxide (22-30) mmol/L Anion Gap (10-20) BUN (9-20) mg/dL Creatinine (0.8-1.5) MG/DL Est GFR ( Amer) Est GFR (Non-Af Amer) POC Glucose (mg/dL) 125 H 43 L (65-110) mg/dL Random Glucose (75-110) mg/dL Calcium (8.6-10.4) mg/dl Phosphorus (2.5-4.5) mg/dL Magnesium (1.6-2.3) mg/dL Total Bilirubin (0.2-1.3) mg/dL AST (17-59) U/L ALT (21-72) U/L Alkaline Phosphatase (38-126) U/L Total Protein (6.3-8.3) g/dL Albumin (3.5-5.0) g/dL Globulin (2.2-3.9) gm/dL Albumin/Globulin Ratio (1.0-2.1) Laboratory Results - last 24 hr 11/26/16 11/26/16 11/27/16 21:12 22:08 06:42 WBC 13.6 H RBC 4.46 Hgb 10.5 L Hct 31.9 L MCV 71.6 L MCH 23.5 L MCHC 32.9 L RDW 23.4 H Plt Count 194 MPV 8.7 Neut % (Auto) 81.8 H Lymph % (Auto) 11.7 L [place] % (Auto) 6.0 Eos % (Auto) 0.3 Baso % (Auto) 0.2 Neut # 11.2 H Lymph # 1.6 [place] # 0.8 Eos # 0.0 Baso # 0.0 PT INR APTT Sodium Potassium Chloride Carbon Dioxide Anion Gap BUN Creatinine Est GFR ( Amer) Est GFR (Non-Af Amer) POC Glucose (mg/dL) 43 L 125 H Random Glucose Calcium Phosphorus Magnesium Total Bilirubin AST ALT Alkaline Phosphatase Total Protein Albumin Globulin Albumin/Globulin Ratio 11/27/16 11/27/16 11/27/16 06:42 06:42 07:49 WBC RBC Hgb Hct MCV MCH MCHC RDW Plt Count MPV Neut % (Auto) Lymph % (Auto) [place] % (Auto) Eos % (Auto) Baso % (Auto) Neut # Lymph # [place] # Eos # Baso # PT 14.8 H INR 1.3 APTT Sodium 137 Potassium 3.7 Chloride 105 Carbon Dioxide 21 L Anion Gap 15 BUN 8 L Creatinine 0.4 L Est GFR ( Amer) > 60 Est GFR (Non-Af Amer) > 60 POC Glucose (mg/dL) 121 H Random Glucose 104 Calcium 6.6 L Phosphorus 3.1 Magnesium 1.5 L Total Bilirubin 0.8 AST 21 ALT 32 Alkaline Phosphatase 119 Total Protein 4.5 L Albumin 1.7 L Globulin 2.8 Albumin/Globulin Ratio 0.6 L 11/27/16 11/27/16 11/27/16 11:28 12:28 16:03 WBC RBC Hgb Hct MCV MCH MCHC RDW Plt Count MPV Neut % (Auto) Lymph % (Auto) [place] % (Auto) Eos % (Auto) Baso % (Auto) Neut # Lymph # [place] # Eos # Baso # PT INR APTT 34 D Sodium Potassium Chloride Carbon Dioxide Anion Gap BUN Creatinine Est GFR ( Amer) Est GFR (Non-Af Amer) POC Glucose (mg/dL) 135 H 162 H Random Glucose Calcium Phosphorus Magnesium Total Bilirubin AST ALT Alkaline Phosphatase Total Protein Albumin Globulin Albumin/Globulin Ratio Critical Care Progress Note - Nutrition Nutrition: Nutrition Category Date Time Status Regular Diet [DIET] Diets 11/27/16 Breakfast Active Attending/Attestation - Attestation I have personally seen and examined this patient.: Yes I have fully participated in the care of the patient.: Yes I have reviewed all pertinent clinical information: Yes Notes (Text): 11/27/16 17:03 Patient seen and examined in the intensive care unit. Case discussed with the staff in the morning rounds. Stable for transfer to floor H&H stable
[2016-11-27] MEDS: Heparin25000 units/250ml 1/2NS 25,000 UNITS/250 ML BAG IV PRN ×2 (13:54→17:49)
[2016-11-27] MEDS ORDERED: Heparin25000 units/250ml 1/2NS 25,000 UNITS/250 ML BAG IV PRN ×2 (14:32→14:42)
--- NOTE | 2016-11-27 17:40 | CP.PCM.PN ---
<Jose Coffman - Last Filed: 11/27/16 17:34> Subjective - Date & Time of Evaluation Date of Evaluation: 11/27/16 Time of Evaluation: 14:00 - Subjective Subjective: PGY-[address] Bobo Harris's Service: Patient was seen and examined at bedside in ICU. Patient said he felt well and had no complaints. Patient had no acute events overnight as per nursing. He said he's tired of the testing and interventions and wants a break for a day or two. Patient denied any headache, dizziness, chest pain, palpitations, SOB, cough, vomiting, bladder complaints, pain/swelling in his legs bilaterally. Objective - Vital Signs/Intake and Output Vital Signs (last 24 hours): Temp Pulse Resp BP Pulse Ox 97.9 F 122 H 19 143/65 100 11/27/16 16:00 11/27/16 16:00 11/27/16 16:00 11/27/16 16:00 11/27/16 16:00 Intake and Output: 11/27/16 11/27/16 06:59 18:59 Intake Total 1875 1306 Output Total 330 400 Balance 1545 906 - Medications Medications: Current Medications Dextrose (Dextrose 50% Inj) 0 ml IV STAT PRN; Protocol PRN Reason: Hyglycemia Protocol Last Admin: 11/18/16 06:21 Dose: 50 ml Famotidine (Pepcid) 20 mg PO Q12 [facility] Last Admin: 11/27/16 11:06 Dose: Not Given Hydromorphone HCl (Dilaudid) 0.5 mg IVP Q4H PRN PRN Reason: Pain, moderate (4-7) Last Admin: 11/26/16 23:28 Dose: 0.5 mg Imipenem/Cilastatin Sodium 500 (mg/ Sodium Chloride) 100 mls @ 100 mls/hr IVPB Q6H [facility] Last Admin: 11/27/16 14:00 Dose: 100 mls/hr Metronidazole (Flagyl) 500 mg in 100 mls @ 100 mls/hr IVPB Q8H [facility] Last Admin: 11/27/16 09:32 Dose: 100 mls/hr Fluconazole (Diflucan Iv 100 Mg/50 Ml Ns) 50 mls @ 100 mls/hr IVPB DAILY [facility] Last Admin: 11/27/16 09:33 Dose: 100 mls/hr Lactated Ringer's (Lactated Ringer's) 1,000 mls @ 75 mls/hr IV .[id number] [facility] Last Admin: 11/27/16 09:34 Dose: 75 mls/hr Heparin Sodium/Sodium Chloride (Heparin 51702 Units/250ml 1/2 Normal Saline) 25 ,000 units in 250 mls @ 18.779 mls/hr IV .[id number] PRN; Protocol; 18 UNITS/KG/HR PRN Reason: PROTOCOL Insulin Aspart (Novolog) 0 unit SC ACHS [facility] PRN Reason: Protocol Last Admin: 11/27/16 16:35 Dose: 2 unit Insulin Detemir (Levemir) 15 unit SC DAILY [facility] Last Admin: 11/24/16 09:28 Dose: 15 unit Ondansetron HCl (Zofran Inj) 4 mg IVP Q6H PRN PRN Reason: Nausea/Vomiting Last Admin: 11/27/16 16:06 Dose: 4 mg Saccharomyces Boulardii (Florastor) 250 mg PO BID [facility] Last Admin: 11/27/16 09:32 Dose: 250 mg - Labs Labs: 11/27/16 06:42 11/27/16 06:42 PT 14.8 SECONDS (9.7-12.2) H 11/27/16 06:42 INR 1.3 11/27/16 06:42 APTT 34 SECONDS (21-34) D 11/27/16 12:28 - Constitutional Appears: No Acute Distress - Head Exam Head Exam: NORMAL INSPECTION - Eye Exam Eye Exam: Normal appearance - ENT Exam ENT Exam: Mucous Membranes Moist - Neck Exam Neck Exam: Normal Inspection - Respiratory Exam Respiratory Exam: Clear to Ausculation Bilateral, NORMAL BREATHING PATTERN - Cardiovascular Exam Cardiovascular Exam: REGULAR RHYTHM, +S1, +S2. absent: Murmur - GI/Abdominal Exam GI & Abdominal Exam: Soft, Normal Bowel Sounds - Rectal Exam Rectal Exam: Deferred - Extremities Exam Extremities Exam: Pedal Edema Additional comments: 2+ pitting edema in lower extremity up to shins bilaterally 1+ pitting edema in right arm; right arm edema > left arm edema - Neurological Exam Neurological Exam: Alert, Awake - Psychiatric Exam Psychiatric exam: Normal Affect, Normal Mood - Skin Skin Exam: Dry, Intact, Normal Color, Warm Assessment and Plan - Assessment and Plan (Free Text) Assessment: (1) Chronic diarrhea 2/2 10 cm Sigmoid Mass 11/27: s/p exploratory laparotomy POD1, w/ findings of unresectable rectosigmoid mass. Per surgery note, patient will need a portacath placement, time and date to be determined. Will stop heparin drip (tx for RUE deep vein thrombosis) 4 hours prior to portacath placement procedure. 11/26: Per resident care manager rn, the surgery today to resect patient's sigmoid mass was halted after it was determined the mass was too large/firm for removal. The patient will be treated with a neoadjuvant with hopes of shrinking the size of the tumor with possible surgery for removal at a later date. Patient was sent to ICU post OR for monitoring. 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 Due to lovenox longer half life, therapeutic lovenox was discontinued and heparin was started. Heparin 8000u iv bolus was given and heparin drip was started at 18u/kg/hr. This drip will be stopped at exactly 5am, 4 hours before surgery. 11/25: Cardiology consulted for risk stratification for procedure. Stress test was normal. ECHO results pending. 11/25: c.diff negative. f/u ova and parasite. 11/25: per dr Garcia, megace was discontinued as it can cause blood clots. megace was originally ordered to stimulate appetite. 11/22: Pt advanced to solid food diet today. Surgery planning for OR 11/26. Added marinol to increased appetite per surgery request. 11/21: Pt s/p cystoscopy today. Patient found to have invasion to dome of urinary bladder. Surgery to plan for surgery some time next week 11/21: GI has signed off. 11/21: Per GI, Abdominal U/S obtained to rule out SV thrombosis given presence of gastroesopahgeal varices seen on endoscopic examination -> Abdominal U/S: 1. Hepatocellular disease without focal hepatic mass. 2. Patent portal venous system including splenic vein. 3. Cholelithiasis. No sonographic evidence of acute cholecystitis. 4. Cystic mass in the head of the pancreas. Remainder the pancreas is not visualized. 11/21: PICC placed today by IR DR Armando. 11/20: Dr Benji Jon will do cystoscopy tomorrow as surgery believes a cystoscopy could aid in surgical planning, surgery concerned about air in bladder and the way the mass abuts the bladder as seen on CT. Patient will be npo after midnight. 11/20: s/p upper EUS: "LA grade C erosive esophagitis. 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 75mm x 65mm psedocyst seen in pancreatic body, fine needle aspiration for fluid performed. Varices were visualized endosonographically in fundus of stomach". Will f/u cystology and CEA levels. 11/20: s/p venous duplex of upper extremities: "right: acute thrombosis of right subclavian, axillary and brachial veins with severe reduction of venous return. left: acute thrombosis of left cephatlic vein with severe reduction of venous return". Therapeutic lovenox started -> 90mg q12 sc. 11/20: s/p venous duplex of lower extremeties: negative 11/20: PICC line placed today. Magnesium was low, repleted. 11/19: GI to perform EUS tomorrow. Advanced diet to liquid - will advance as tolerated. B/l upper and lower extremity duplex scans were ordered today. 11/18: Patient is s/p EGD/Colonoscopy. A 10cm partially obstructing sigmoid mass was seen and biopsied. Multiple polyps were seen and resected. Heme/Onc, Dr Garcia has been consulted, we will follow up with his recommendations. 11/17: Still having the diarrhea. The C diff studies are pending. He will need to be on IV Flagyl. 11/16: Pending CT of abd / pelvis results. The appears to be a possible pancreatic area mass as well as colonic mass. The night team has already ordered tumor markers as well as stool studies. Abx were also ordered and the WBC decreased. CT chest abdomen and pelvis findings as noted: suspected sigmoid and proximal rectum mass lesion without evidence of high grade bowel obstruction; suspected abscess formation; cystic mass lesion noted at pancreas with surrounding fat stranding of the pancreatic tail; large gallstones without evidence of acute cholecystitis GI consult (Dr. Srivastava)---> Help appreciated General Surgery Consult (Dr. Amin)----> Help appreciated Urology Consult ( Dr. Jon)----> Help appreciated * All consulted due to unofficial read of CT Scan of chest/abdomen/pelvis: Intra -abdominal abscess/malignancy and bladder wall thickening * Still pending official radiologist report Potassium chloride/dextrose/sodium cl @ 100ml/hr iv q10 Stool culture negative for salmonella, shigella, campylobacter Stool leukocytes negative Ova and parasites not seen C. diffi toxin AB negative (2) Syncope - possibly secondary to ongoing diarrhea Resolved 11/19: Discontinued lowe, started a voiding trial today. 11/17: Feeling better today, continue with the IVF. He is tolerating the the liquid diet 11/16: Continue with the IVF, he reports diarrhea, also the patient reports poor PO intake. He looks dry on exam. He recently had an echo done on 10/[address] His head CT was negative Also stop the blood pressure medication (3) Gram - negative positive blood cultures Resolved 11/27: wbc trending down. afebrile. will continue primaxin and flagyl and monitor bands and wbc. Blood cultures negative after 3 days. 11/26: Patient in ICU for monitoring post OR, Bands 12 today, will monitor. 11/25: Blood cultures are negative after [address] Burns, con't tx for minimum of 14 days; Primaxin and Flagyl both started on 11/17. 11/19: HIV screen negative, Hep panel negative. Bands 26 today. 11/18: HIV 1&2 antibodies, Hep panel were ordered today. ID has been consulted, Dr Burns, we will follow his recommendations. 11/17: Changed to IV Primaxin 500mg IV Q6 Follow cultures. Currently blood pressure and HR stable. Nonfebrile. Continue with the IVF, monitor lowe outputs (4) Urinary tract infection Resolved 11/25: Urine cultures are negative from 11/18 11/18: repeat urine culture ordered today as previous urine culture came back contaminated UA: Leukocytes esterase : 2+ WBC: 187 Yeast Budding: (positive) * Fluconazole 100mg IVPB daily (5) Metabolic acidosis, increased anion gap Resolved Improving with IVF Secondary to ketosis On admission: 33 After NS 0.9% @ 100mls/hr: 20 (6) Hypertension 11/16: Will hold lisnopril at this time (7) Uncontrolled diabetes mellitus con't on current insulin regimen 11/25: fluctuations in sugar are improved, will continue current insulin regimen and continue to monitor 11/23: episode of hypoglycemia, juice and sandwich given, then given 50 ml of Dextrose 50% iv Recent HgbA1C: 9.0 (09/28/16) Accuchecks ISS Levemir 15 units Hold glipizide (8) Ulcerated mucosa of esophagus Will instruct patient to follow up with GI specialist (referral from [facility]) outpatient. 11/18: Per endoscopy report -> Ulcerated mucosa in the lower third of the esophagus was seen and biopsied. Patient is on pepcid iv 20mg q12. (9) Cystic mass lesion noted at pancreas with surrounding fat stranding of the pancreatic tail Will instruct patient to follow up with GI specialist (referral from [facility]) outpatient. 11/26: Pancreatic cyst FNA negative for malignant cells per cytology report. 11/25: Per orthodontic laboratory technician, EUS performed on 11/20 sampled pancreatic cyst fluid with diagnostic studies ordered for ptf amylase and ptf CEA only 11/20: Upper EUS performed today: "75mm x 65mm psedocyst seen in pancreatic body , fine needle aspiration for fluid performed 11/18: CT abd/pelvis shows cystic mass lesion at pancreas with fat stranding of pacreatic tail. Lipase level and lipid panel was ordered today. 11/17: CA 19-9 wnl (10) Cholelithiasis Will instruct patient to follow up with GI specialist (referral from [facility]) outpatient. 11/18: CT abd/pelvis shows large gallstones without evidence of acute cholecystitis. (11) Hyoocalcemia calcium 6.6, corrected is 8.5 monitor (12) Anemia 2/2 Anemia of Chronic Disease 11/27: H/H stable, will continue to monitor. 11/26: After discussing with Heme/Onc Dr Garcia, since Ferritin is normal ferrlecit will not provide much benefit, will discontinue 11/25: Will start Ferrlecit 125mg iv daily after surgical procedure 11/25: Hgb stable at 8.6. (13) Right Arm Deep Vein Thrombosis 11/27: Heparin drip restarted at 18u/kg/hr. Heparin bolus 8,000u given prior to start of drip. 11/26: Per surgery, plan is to restart anticoagulant tomorrow morning (14) Abnormal Stress Test Upon discharge patient is to follow up in [facility] for continued cardiology observation and treatment with Dr. Ruiz 11/25: Nuclear Stress Test: Defect in mid-anteroseptal wall, defect in basal inferoseptal wall, fixed apical defect old [place], small defect inferior wall 11/25: ECHO: left ventricle systolic function is normal. EF is 50-55%. (15) Prophylactic measure SCD (Contraindicated due to LE edema) Pepcid IV 20mg Q12H Heparin drip 18u/kg/hr <Bobo Harris - Last Filed: 11/27/16 19:47> Objective - Vital Signs/Intake and Output Vital Signs (last 24 hours): Temp Pulse Resp BP Pulse Ox 97.9 F 121 H 19 150/91 H 96 11/27/16 16:00 11/27/16 17:53 11/27/16 17:53 11/27/16 17:53 11/27/16 17:53 Intake and Output: 11/27/16 11/28/16 18:59 06:59 Intake Total 1306 170 Output Total 400 250 Balance 906 -80 - Medications Medications: Current Medications Dextrose (Dextrose 50% Inj) 0 ml IV STAT PRN; Protocol PRN Reason: Hyglycemia Protocol Last Admin: 11/18/16 06:21 Dose: 50 ml Famotidine (Pepcid) 20 mg PO Q12 [facility] Last Admin: 11/27/16 11:06 Dose: Not Given Hydromorphone HCl (Dilaudid) 0.5 mg IVP Q4H PRN PRN Reason: Pain, moderate (4-7) Last Admin: 11/26/16 23:28 Dose: 0.5 mg Imipenem/Cilastatin Sodium 500 (mg/ Sodium Chloride) 100 mls @ 100 mls/hr IVPB Q6H [facility] Last Admin: 11/27/16 14:00 Dose: 100 mls/hr Metronidazole (Flagyl) 500 mg in 100 mls @ 100 mls/hr IVPB Q8H [facility] Last Admin: 11/27/16 17:49 Dose: 100 mls/hr Fluconazole (Diflucan Iv 100 Mg/50 Ml Ns) 50 mls @ 100 mls/hr IVPB DAILY [facility] Last Admin: 11/27/16 09:33 Dose: 100 mls/hr Lactated Ringer's (Lactated Ringer's) 1,000 mls @ 75 mls/hr IV .[id number] [facility] Last Admin: 11/27/16 09:34 Dose: 75 mls/hr Heparin Sodium/Sodium Chloride (Heparin 97144 Units/250ml 1/2 Normal Saline) 25 ,000 units in 250 mls @ 18.779 mls/hr IV .[id number] PRN; Protocol; 18 UNITS/KG/HR PRN Reason: PROTOCOL Last Admin: 11/27/16 17:49 Dose: 18 units/kg/hr, 18.779 mls/hr Insulin Aspart (Novolog) 0 unit SC ACHS [facility] PRN Reason: Protocol Last Admin: 11/27/16 16:35 Dose: 2 unit Insulin Detemir (Levemir) 15 unit SC DAILY [facility] Last Admin: 11/24/16 09:28 Dose: 15 unit Ondansetron HCl (Zofran Inj) 4 mg IVP Q6H PRN PRN Reason: Nausea/Vomiting Last Admin: 11/27/16 16:06 Dose: 4 mg Saccharomyces Boulardii (Florastor) 250 mg PO BID [facility] Last Admin: 11/27/16 17:49 Dose: 250 mg - Labs Labs: 11/27/16 06:42 11/27/16 06:42 PT 14.8 SECONDS (9.7-12.2) H 11/27/16 06:42 INR 1.3 11/27/16 06:42 APTT 34 SECONDS (21-34) D 11/27/16 12:28 Attending/Attestation - Attestation I have personally seen and examined this patient.: Yes I have fully participated in the care of the patient.: Yes I have reviewed all pertinent clinical information, including history, physical exam and plan: Yes Notes (Text): 11/27/16 19:43 Patient was seen and examined in the ICU Bed 17 at 11:50 AM. Exam, assessment and plan, were thoroughly gone over with the resident. At the time of my exam, patient stated that he had eggs, cheerios, and a bannana but had some mild nausea and vomited small amount of the food afterwards. Please note that the abdominal surgical midline incision with jody was dry, no signs of cellulitis, and no dehiscence. Awaiting Surgical Team's decision as to when Emeli Cath will be placed. As mentioned above, Heparin Drip for Right Arm DVT, will have to be stopped 4 hours before scheduled time for Emeli Cath placement. Once Emeli Cath is placed , will contact Heme/Onc Dr. Tristen Garcai to start adjuvent therapy. Will start Lasix once LR fluid is stopped. Bobo Harris D.O.
[2016-11-28] MEDS: metroNIDAZOLE IV 500 mg/100 ml 500 MG/100 ML BAG IVPB SCH ×3 (02:00→18:00)
[2016-11-28] MEDS: Heparin25000 units/250ml 1/2NS 25,000 UNITS/250 ML BAG IV PRN (06:31)
--- NOTE | 2016-11-28 08:58 | CP.PCM.PN ---
<Radha Carrillo - Last Filed: 11/28/16 11:08> Subjective - Date & Time of Evaluation Date of Evaluation: 11/28/16 Time of Evaluation: 11:08 - Subjective Subjective: Cardiology progress note for Dr. Ruiz Patient seen and examined at bedside. POD#2 rigid sigmnoidoscopy and exlap- tumor was unable to be resected due to multiple areas of fixation. He reported 3 episodes of diarrhea with some blood yesterday 11/27 and one episode of coffee ground emesis. Patient has been having second thoughts regarding chemotherapy and having the chemoport placed today. He continues to report decreased appetite and swelling in all four extremities. Patient was also requesting something to help him sleep. Patient denied headache, dizziness, chest pain, palpitations, SOB, cough, pain in his legs. Objective - Vital Signs/Intake and Output Vital Signs (last 24 hours): Temp Pulse Resp BP Pulse Ox 98.2 F 100 H 18 152/74 H 97 11/28/16 04:00 11/28/16 04:00 11/28/16 04:00 11/28/16 04:00 11/28/16 04:00 Intake and Output: 11/28/16 11/28/16 06:59 18:59 Intake Total 420 Output Total 250 Balance 170 - Medications Medications: Current Medications Dextrose (Dextrose 50% Inj) 0 ml IV STAT PRN; Protocol PRN Reason: Hyglycemia Protocol Last Admin: 11/18/16 06:21 Dose: 50 ml Famotidine (Pepcid) 20 mg PO Q12 [facility] Last Admin: 11/27/16 22:14 Dose: 20 mg Hydromorphone HCl (Dilaudid) 0.5 mg IVP Q4H PRN PRN Reason: Pain, moderate (4-7) Last Admin: 11/26/16 23:28 Dose: 0.5 mg Imipenem/Cilastatin Sodium 500 (mg/ Sodium Chloride) 100 mls @ 100 mls/hr IVPB Q6H [facility] Last Admin: 11/28/16 03:00 Dose: 100 mls/hr Metronidazole (Flagyl) 500 mg in 100 mls @ 100 mls/hr IVPB Q8H [facility] Last Admin: 11/28/16 02:00 Dose: 100 mls/hr Fluconazole (Diflucan Iv 100 Mg/50 Ml Ns) 50 mls @ 100 mls/hr IVPB DAILY [facility] Last Admin: 11/27/16 09:33 Dose: 100 mls/hr Lactated Ringer's (Lactated Ringer's) 1,000 mls @ 75 mls/hr IV .[id number] [facility] Last Admin: 11/27/16 22:18 Dose: Not Given Heparin Sodium/Sodium Chloride (Heparin 95169 Units/250ml 1/2 Normal Saline) 25 ,000 units in 250 mls @ 18.779 mls/hr IV .[id number] PRN; Protocol; 18 UNITS/KG/HR PRN Reason: PROTOCOL Last Admin: 11/28/16 06:31 Dose: 15 units/kg/hr, 15.649 mls/hr Insulin Aspart (Novolog) 0 unit SC ACHS [facility] PRN Reason: Protocol Last Admin: 11/27/16 22:08 Dose: Not Given Insulin Detemir (Levemir) 15 unit SC DAILY [facility] Last Admin: 11/24/16 09:28 Dose: 15 unit Ondansetron HCl (Zofran Inj) 4 mg IVP Q6H PRN PRN Reason: Nausea/Vomiting Last Admin: 11/28/16 03:00 Dose: 4 mg Saccharomyces Boulardii (Florastor) 250 mg PO BID [facility] Last Admin: 11/27/16 17:49 Dose: 250 mg - Labs Labs: 11/27/16 06:42 11/27/16 06:42 PT 14.8 SECONDS (9.7-12.2) H 11/27/16 06:42 INR 1.3 11/27/16 06:42 APTT 152 SECONDS (21-34) H* D 11/28/16 00:59 - Constitutional Appears: Chronically Ill - Head Exam Head Exam: ATRAUMATIC - Eye Exam Eye Exam: EOMI, Normal appearance, PERRL. absent: Conjunctival injection, Scleral icterus Pupil Exam: NORMAL ACCOMODATION - ENT Exam ENT Exam: Mucous Membranes Moist - Respiratory Exam Respiratory Exam: Clear to Ausculation Bilateral, NORMAL BREATHING PATTERN. absent: Accessory Muscle Use, Rales, Rhonchi, Wheezes, Respiratory Distress - Cardiovascular Exam Cardiovascular Exam: REGULAR RHYTHM, RRR, +S1, +S2. 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 Cardiology was consulted for surgery risk assessment Plan: -POD#2 rigid sigmnoidoscopy and exlap- tumor was unable to be resected due to multiple areas of fixation -Patient has hx of HTN and DM2 -VSS overnight -11/15 EKG: sinus tachycardia HR @ 126bpm -Lipid panel: T Cholesterol: 65 LDL: 31 HDL: 25 -HgbA1c: 11.5 Levemir 15U sc daily [facility] -Lexiscan completed on 11/25 defect in mid-anteroseptal wall defect in basal anteroseptal wall Fixed apical defect old [place] small inferior wall defect -Echo 11/25/16 EF 51% [50-55%] LV systolic function normal No aortic regurgitation is present No mitral valve regurgitation noted Mild tricuspid regurgitation Mild-mod pulmonary hypertension No pulmonic valvular regurgitation -Echo 10/14/16 EF 46% Overall LV systolic function appears borderline and there is a suggestion of septal hypokinesis -Continue current management in critical care unit -Patient started on Ambien 5mg po hs for insomnia Patient will need outpatient cardiology evaluation Upon discharge patient is to follow up in [facility] for continued cardiology observation and treatment with Dr. Ruiz Case discussed with Dr. Sara Carrillo PGY2 <Jose Ruiz - Last Filed: 12/26/16 07:28> Objective - Vital Signs/Intake and Output Vital Signs (last 24 hours): Temp Pulse Resp BP Pulse Ox 98.4 F 100 H 20 110/70 99 12/22/16 23:25 12/22/16 23:25 12/22/16 23:25 12/22/16 23:25 12/22/16 23:25 - Labs Labs: 12/21/16 06:30 12/21/16 06:30 PT 15.0 SECONDS (9.7-12.2) H 12/03/16 07:08 INR 1.3 12/03/16 07:08 APTT 37 SECONDS (21-34) H 12/03/16 07:08 Attending/Attestation - Attestation I have personally seen and examined this patient.: Yes I have fully participated in the care of the patient.: Yes I have reviewed all pertinent clinical information, including history, physical exam and plan: Yes Notes (Text): 12/26/16 07:27 no palpitations stable no arrythmias breathing better
[2016-11-28] MEDS: Fluconazole IV 100mg/50 ml NS 50 ML IVPB SCH (09:13)
[2016-11-28] MEDS: Saccharomyces Boulardi 250 mg Cap PO SCH ×2 (09:21→17:58)
[2016-11-28] MEDS: (Novolog) Insulin Aspart, Recombinant 100 u/ml 10 ml vial SC SCH ×5 (09:22→21:41)
[2016-11-28] MEDS: Pantoprazole 40 mg EC Tab PO SCH ×2 (10:40→17:59)
--- NOTE | 2016-11-28 11:05 | CP.PCM.PN ---
Subjective - Date & Time of Evaluation Date of Evaluation: 11/28/16 Time of Evaluation: 08:30 - Subjective Subjective: Patient seen and examined this morning. Currently patient states he does not want the chemoport, states he wants time to think about it. Patient appears tired and he does not want to make sudden decisions. Patient had 1 bout of coffee ground emesis. Objective - Vital Signs/Intake and Output Vital Signs (last 24 hours): Temp Pulse Resp BP Pulse Ox 98.2 F 100 H 18 152/74 H 97 11/28/16 04:00 11/28/16 04:00 11/28/16 04:00 11/28/16 04:00 11/28/16 04:00 Intake and Output: 11/28/16 11/28/16 06:59 18:59 Intake Total 420 Output Total 250 Balance 170 - Medications Medications: Current Medications Dextrose (Dextrose 50% Inj) 0 ml IV STAT PRN; Protocol PRN Reason: Hyglycemia Protocol Last Admin: 11/18/16 06:21 Dose: 50 ml Hydromorphone HCl (Dilaudid) 0.5 mg IVP Q4H PRN PRN Reason: Pain, moderate (4-7) Last Admin: 11/26/16 23:28 Dose: 0.5 mg Imipenem/Cilastatin Sodium 500 (mg/ Sodium Chloride) 100 mls @ 100 mls/hr IVPB Q6H [facility] Last Admin: 11/28/16 08:30 Dose: 100 mls/hr Metronidazole (Flagyl) 500 mg in 100 mls @ 100 mls/hr IVPB Q8H [facility] Last Admin: 11/28/16 09:20 Dose: 100 mls/hr Fluconazole (Diflucan Iv 100 Mg/50 Ml Ns) 50 mls @ 100 mls/hr IVPB DAILY [facility] Last Admin: 11/28/16 09:13 Dose: 100 mls/hr Lactated Ringer's (Lactated Ringer's) 1,000 mls @ 75 mls/hr IV .[id number] [facility] Last Admin: 11/27/16 22:18 Dose: Not Given Heparin Sodium/Sodium Chloride (Heparin 21454 Units/250ml 1/2 Normal Saline) 25 ,000 units in 250 mls @ 18.779 mls/hr IV .[id number] PRN; Protocol; 18 UNITS/KG/HR PRN Reason: PROTOCOL Last Admin: 11/28/16 06:31 Dose: 15 units/kg/hr, 15.649 mls/hr Insulin Aspart (Novolog) 0 unit SC ACHS [facility] PRN Reason: Protocol Last Admin: 11/28/16 09:26 Dose: 4 unit Insulin Detemir (Levemir) 15 unit SC DAILY [facility] Last Admin: 11/24/16 09:28 Dose: 15 unit Ondansetron HCl (Zofran Inj) 4 mg IVP Q6H PRN PRN Reason: Nausea/Vomiting Last Admin: 11/28/16 03:00 Dose: 4 mg Pantoprazole Sodium (Protonix Ec Tab) 40 mg PO BID [facility] Saccharomyces Boulardii (Florastor) 250 mg PO BID [facility] Last Admin: 11/28/16 09:21 Dose: 250 mg - Labs Labs: 11/27/16 06:42 11/27/16 06:42 PT 14.8 SECONDS (9.7-12.2) H 11/27/16 06:42 INR 1.3 11/27/16 06:42 APTT 152 SECONDS (21-34) H* D 11/28/16 00:59 - Constitutional Appears: No Acute Distress, Other (sad) - Head Exam Head Exam: NORMOCEPHALIC - Eye Exam Eye Exam: Normal appearance - ENT Exam ENT Exam: Mucous Membranes Moist - Respiratory Exam Respiratory Exam: NORMAL BREATHING PATTERN - Cardiovascular Exam Cardiovascular Exam: +S1, +S2 - GI/Abdominal Exam GI & Abdominal Exam: Soft. absent: Distended, Tenderness - Neurological Exam Neurological Exam: Alert, Awake - Skin Skin Exam: Warm Assessment and Plan - Assessment and Plan (Free Text) Assessment: 66M s/p exploratory laparotomy POD2,w/ findings of unresectable rectosigmoid mass -Patient will need portacath placement, currently refusing, pt wants time to think things through -Regular diet -Protonix BID -Monitor vitals -c/w analgesic -C/w anti-emetic -Further recs per Dr. Brennan Whitaker PGY-2
--- NOTE | 2016-11-28 13:17 | CP.PCM.PN ---
Addendum entered and electronically signed by Jose Coffman 11/28/16 19:14: Patient's therapeutic heparin was discontinued because of poor vein access which left heparin administration and blood draws to occur from the same access point - this would skew the lab values, specifically the PT/INR/PTT. Thus we have switched to therapeutic lovenox 90mg sc q12. This is to treat his RUE deep vein thrombosis. Original Note: <Jose Coffman - Last Filed: 11/28/16 13:14> Subjective - Date & Time of Evaluation Date of Evaluation: 11/28/16 Time of Evaluation: 09:00 - Subjective Subjective: PGY-[address] Bobo Harris's Service: Patient was seen and examined at bedside. Resting comfortably in NAD. He admits to some alternating bouts of diarrhea and constipation. Status is otherwise unchanged from before. Denies any chest pain, SOB, palpitations, n/v, abdominal pain, leg pain, dysuria, hematuria or any other complaints at this time. Discussed at length, the current plan for portacath placement with subsequent chemo in a few weeks. Patient expressed his understanding, but states that at this time, he is having second thoughts on going through with the chemo. The primary plan, as well as other alternatives were discussed with the patient. He fully understands the implications of his decision, but continues to feel that he needs more time to process all of his options. Objective - Vital Signs/Intake and Output Vital Signs (last 24 hours): Temp Pulse Resp BP Pulse Ox 98.2 F 100 H 18 152/74 H 97 11/28/16 04:00 11/28/16 04:00 11/28/16 04:00 11/28/16 04:00 11/28/16 04:00 Intake and Output: 11/28/16 11/28/16 06:59 18:59 Intake Total 420 Output Total 250 Balance 170 - Medications Medications: Current Medications Dextrose (Dextrose 50% Inj) 0 ml IV STAT PRN; Protocol PRN Reason: Hyglycemia Protocol Last Admin: 11/18/16 06:21 Dose: 50 ml Hydromorphone HCl (Dilaudid) 0.5 mg IVP Q4H PRN PRN Reason: Pain, moderate (4-7) Last Admin: 11/26/16 23:28 Dose: 0.5 mg Imipenem/Cilastatin Sodium 500 (mg/ Sodium Chloride) 100 mls @ 100 mls/hr IVPB Q6H [facility] Last Admin: 11/28/16 08:30 Dose: 100 mls/hr Metronidazole (Flagyl) 500 mg in 100 mls @ 100 mls/hr IVPB Q8H [facility] Last Admin: 11/28/16 09:20 Dose: 100 mls/hr Fluconazole (Diflucan Iv 100 Mg/50 Ml Ns) 50 mls @ 100 mls/hr IVPB DAILY [facility] Last Admin: 11/28/16 09:13 Dose: 100 mls/hr Lactated Ringer's (Lactated Ringer's) 1,000 mls @ 75 mls/hr IV .[id number] [facility] Last Admin: 11/27/16 22:18 Dose: Not Given Heparin Sodium/Sodium Chloride (Heparin 53894 Units/250ml 1/2 Normal Saline) 25 ,000 units in 250 mls @ 18.779 mls/hr IV .[id number] PRN; Protocol; 18 UNITS/KG/HR PRN Reason: PROTOCOL Last Admin: 11/28/16 06:31 Dose: 15 units/kg/hr, 15.649 mls/hr Insulin Aspart (Novolog) 0 unit SC ACHS [facility] PRN Reason: Protocol Last Admin: 11/28/16 12:00 Dose: 2 unit Insulin Detemir (Levemir) 15 unit SC DAILY [facility] Last Admin: 11/24/16 09:28 Dose: 15 unit Ondansetron HCl (Zofran Inj) 4 mg IVP Q6H PRN PRN Reason: Nausea/Vomiting Last Admin: 11/28/16 12:06 Dose: 4 mg Pantoprazole Sodium (Protonix Ec Tab) 40 mg PO BID [facility] Last Admin: 11/28/16 10:40 Dose: 40 mg Saccharomyces Boulardii (Florastor) 250 mg PO BID [facility] Last Admin: 11/28/16 09:21 Dose: 250 mg Zolpidem Tartrate (Ambien) 5 mg PO HS PRN PRN Reason: Insomnia - Labs Labs: 11/27/16 06:42 11/27/16 06:42 PT 14.8 SECONDS (9.7-12.2) H 11/27/16 06:42 INR 1.3 11/27/16 06:42 APTT 152 SECONDS (21-34) H* D 11/28/16 00:59 - Constitutional Appears: No Acute Distress - Head Exam Head Exam: NORMAL INSPECTION - Eye Exam Eye Exam: Normal appearance - ENT Exam ENT Exam: Mucous Membranes Moist - Neck Exam Neck Exam: Normal Inspection - Respiratory Exam Respiratory Exam: Clear to Ausculation Bilateral, NORMAL BREATHING PATTERN - Cardiovascular Exam Cardiovascular Exam: Tachycardia, REGULAR RHYTHM, +S1, +S2 - GI/Abdominal Exam GI & Abdominal Exam: Soft, Normal Bowel Sounds. absent: Tenderness - Rectal Exam Rectal Exam: Deferred - Extremities Exam Extremities Exam: Pedal Edema Additional comments: (+) 2+ pitting edema bilateral LEs up to knee, appears to have progressed from last week (+) 2+ pitting edema to the bilateral UEs (R>L arm) up to elbow. - Neurological Exam Neurological Exam: Alert, Awake - Psychiatric Exam Psychiatric exam: Normal Affect, Normal Mood - Skin Skin Exam: Dry, Intact, Normal Color, Warm Assessment and Plan - Assessment and Plan (Free Text) Assessment: (1) Chronic diarrhea 2/2 10 cm Sigmoid Mass 11/28: s/p exploratory laparotomy POD2, w/ findings of unresectable rectosigmoid mass. Patient stated today he does not want the chemoport, he said he wants time to think about it. Patient appears tired and he does not want to make sudden decisions. No morning labs, blood draw was difficult this morning due to poor vein access. 11/27: s/p exploratory laparotomy POD1, w/ findings of unresectable rectosigmoid mass. Per surgery note, patient will need a portacath placement, time and date to be determined. Will stop heparin drip (tx for RUE deep vein thrombosis) 4 hours prior to portacath placement procedure. 11/26: Per surgical orderly, the surgery today to resect patient's sigmoid mass was halted after it was determined the mass was too large/firm for removal. The patient will be treated with a neoadjuvant with hopes of shrinking the size of the tumor with possible surgery for removal at a later date. Patient was sent to ICU post OR for monitoring. 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 Due to lovenox longer half life, therapeutic lovenox was discontinued and heparin was started. Heparin 8000u iv bolus was given and heparin drip was started at 18u/kg/hr. This drip will be stopped at exactly 5am, 4 hours before surgery. 11/25: Cardiology consulted for risk stratification for procedure. Stress test was normal. ECHO results pending. 11/25: c.diff negative. f/u ova and parasite. 11/25: per dr Garcia, megace was discontinued as it can cause blood clots. megace was originally ordered to stimulate appetite. 11/22: Pt advanced to solid food diet today. Surgery planning for OR 11/26. Added marinol to increased appetite per surgery request. 11/21: Pt s/p cystoscopy today. Patient found to have invasion to dome of urinary bladder. Surgery to plan for surgery some time next week 11/21: GI has signed off. 11/21: Per GI, Abdominal U/S obtained to rule out SV thrombosis given presence of gastroesopahgeal varices seen on endoscopic examination -> Abdominal U/S: 1. Hepatocellular disease without focal hepatic mass. 2. Patent portal venous system including splenic vein. 3. Cholelithiasis. No sonographic evidence of acute cholecystitis. 4. Cystic mass in the head of the pancreas. Remainder the pancreas is not visualized. 11/21: PICC placed today by IR DR Armando. 11/20: Dr Benji Jon will do cystoscopy tomorrow as surgery believes a cystoscopy could aid in surgical planning, surgery concerned about air in bladder and the way the mass abuts the bladder as seen on CT. Patient will be npo after midnight. 11/20: s/p upper EUS: "LA grade C erosive esophagitis. 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 75mm x 65mm psedocyst seen in pancreatic body, fine needle aspiration for fluid performed. Varices were visualized endosonographically in fundus of stomach". Will f/u cystology and CEA levels. 11/20: s/p venous duplex of upper extremities: "right: acute thrombosis of right subclavian, axillary and brachial veins with severe reduction of venous return. left: acute thrombosis of left cephatlic vein with severe reduction of venous return". Therapeutic lovenox started -> 90mg q12 sc. 11/20: s/p venous duplex of lower extremeties: negative 11/20: PICC line placed today. Magnesium was low, repleted. 11/19: GI to perform EUS tomorrow. Advanced diet to liquid - will advance as tolerated. B/l upper and lower extremity duplex scans were ordered today. 11/18: Patient is s/p EGD/Colonoscopy. A 10cm partially obstructing sigmoid mass was seen and biopsied. Multiple polyps were seen and resected. Heme/Onc, Dr Garcia has been consulted, we will follow up with his recommendations. 11/17: Still having the diarrhea. The C diff studies are pending. He will need to be on IV Flagyl. 11/16: Pending CT of abd / pelvis results. The appears to be a possible pancreatic area mass as well as colonic mass. The night team has already ordered tumor markers as well as stool studies. Abx were also ordered and the WBC decreased. CT chest abdomen and pelvis findings as noted: suspected sigmoid and proximal rectum mass lesion without evidence of high grade bowel obstruction; suspected abscess formation; cystic mass lesion noted at pancreas with surrounding fat stranding of the pancreatic tail; large gallstones without evidence of acute cholecystitis GI consult (Dr. Srivastava)---> Help appreciated General Surgery Consult (Dr. Amin)----> Help appreciated Urology Consult ( Dr. Jon)----> Help appreciated * All consulted due to unofficial read of CT Scan of chest/abdomen/pelvis: Intra -abdominal abscess/malignancy and bladder wall thickening * Still pending official radiologist report Potassium chloride/dextrose/sodium cl @ 100ml/hr iv q10 Stool culture negative for salmonella, shigella, campylobacter Stool leukocytes negative Ova and parasites not seen C. diffi toxin AB negative (2) Syncope - possibly secondary to ongoing diarrhea Resolved 11/19: Discontinued lowe, started a voiding trial today. 11/17: Feeling better today, continue with the IVF. He is tolerating the the liquid diet 11/16: Continue with the IVF, he reports diarrhea, also the patient reports poor PO intake. He looks dry on exam. He recently had an echo done on 10/[address] head CT was negative Also stop the blood pressure medication (3) Gram - negative positive blood cultures Resolved 11/27: wbc trending down. afebrile. will continue primaxin and flagyl and monitor bands and wbc. Blood cultures negative after 3 days. 11/26: Patient in ICU for monitoring post OR, Bands 12 today, will monitor. 11/25: Blood cultures are negative after [address] Burns, con't tx for minimum of 14 days; Primaxin and Flagyl both started on 11/17. 11/19: HIV screen negative, Hep panel negative. Bands 26 today. 11/18: HIV 1&2 antibodies, Hep panel were ordered today. ID has been consulted, Dr Burns, we will follow his recommendations. 11/17: Changed to IV Primaxin 500mg IV Q6 Follow cultures. Currently blood pressure and HR stable. Nonfebrile. Continue with the IVF, monitor lowe outputs (4) Urinary tract infection Resolved 11/25: Urine cultures are negative from 11/18 11/18: repeat urine culture ordered today as previous urine culture came back contaminated UA: Leukocytes esterase : 2+ WBC: 187 Yeast Budding: (positive) * Fluconazole 100mg IVPB daily (5) Metabolic acidosis, increased anion gap Resolved Improving with IVF Secondary to ketosis On admission: 33 After NS 0.9% @ 100mls/hr: 20 (6) Hypertension 11/16: Will hold lisnopril at this time (7) Uncontrolled diabetes mellitus con't on current insulin regimen 11/25: fluctuations in sugar are improved, will continue current insulin regimen and continue to monitor 11/23: episode of hypoglycemia, juice and sandwich given, then given 50 ml of Dextrose 50% iv Recent HgbA1C: 9.0 (09/28/16) Accuchecks ISS Levemir 15 units Hold glipizide (8) Ulcerated mucosa of esophagus Will instruct patient to follow up with GI specialist (referral from [facility]) outpatient. 11/18: Per endoscopy report -> Ulcerated mucosa in the lower third of the esophagus was seen and biopsied. Patient is on pepcid iv 20mg q12. (9) Cystic mass lesion noted at pancreas with surrounding fat stranding of the pancreatic tail Will instruct patient to follow up with GI specialist (referral from [facility]) outpatient. 11/26: Pancreatic cyst FNA negative for malignant cells per cytology report. 11/25: Per [employer], EUS performed on 11/20 sampled pancreatic cyst fluid with diagnostic studies ordered for ptf amylase and ptf CEA only 11/20: Upper EUS performed today: "75mm x 65mm psedocyst seen in pancreatic body , fine needle aspiration for fluid performed 11/18: CT abd/pelvis shows cystic mass lesion at pancreas with fat stranding of pacreatic tail. Lipase level and lipid panel was ordered today. 11/17: CA 19-9 wnl (10) Cholelithiasis Will instruct patient to follow up with GI specialist (referral from [facility]) outpatient. 11/18: CT abd/pelvis shows large gallstones without evidence of acute cholecystitis. (11) Hyoocalcemia calcium 6.6, corrected is 8.5 monitor (12) Anemia 2/2 Anemia of Chronic Disease 11/27: H/H stable, will continue to monitor. 11/26: After discussing with Heme/Onc Dr Garcia, since Ferritin is normal ferrlecit will not provide much benefit, will discontinue 11/25: Will start Ferrlecit 125mg iv daily after surgical procedure 11/25: Hgb stable at 8.6. (13) Right Arm Deep Vein Thrombosis 11/27: Heparin drip restarted at 18u/kg/hr. Heparin bolus 8,000u given prior to start of drip. 11/26: Per surgery, plan is to restart anticoagulant tomorrow morning (14) Abnormal Stress Test Upon discharge patient is to follow up in [facility] for continued cardiology observation and treatment with Dr. Ruiz 11/25: Nuclear Stress Test: Defect in mid-anteroseptal wall, defect in basal inferoseptal wall, fixed apical defect old NC, small defect inferior wall 11/25: ECHO: left ventricle systolic function is normal. EF is 50-55%. (15) Prophylactic measure SCD (Contraindicated due to LE edema) Pepcid IV 20mg Q12H Heparin drip 18u/kg/hr <Bobo Harris - Last Filed: 11/29/16 17:39> Objective - Vital Signs/Intake and Output Vital Signs (last 24 hours): Temp Pulse Resp BP Pulse Ox 97.4 F L 110 H 20 130/90 95 11/29/16 16:00 11/29/16 16:00 11/29/16 16:00 11/29/16 16:00 11/29/16 16:00 Intake and Output: 11/29/16 11/29/16 06:59 18:59 Intake Total 250 Output Total 900 Balance -650 - Medications Medications: Current Medications Dextrose (Dextrose 50% Inj) 0 ml IV STAT PRN; Protocol PRN Reason: Hyglycemia Protocol Last Admin: 11/18/16 06:21 Dose: 50 ml Enoxaparin Sodium (Lovenox) 90 mg SC Q12 [facility] Last Admin: 11/29/16 09:09 Dose: 90 mg Furosemide (Lasix) 20 mg IVP Q12 [facility] Last Admin: 11/29/16 09:07 Dose: 20 mg Gabapentin (Neurontin) 100 mg PO TID [facility] Last Admin: 11/29/16 17:07 Dose: 100 mg Hydromorphone HCl (Dilaudid) 0.5 mg IVP Q4H PRN PRN Reason: Pain, moderate (4-7) Last Admin: 11/26/16 23:28 Dose: 0.5 mg Hydroxyzine HCl (Atarax) 25 mg PO Q6 PRN PRN Reason: Anxiety Ceftriaxone Sodium 2 gm/ (Sodium Chloride) 100 mls @ 200 mls/hr IVPB Q24H [facility] Last Admin: 11/29/16 13:16 Dose: 200 mls/hr Insulin Aspart (Novolog) 0 unit SC ACHS [facility] PRN Reason: Protocol Last Admin: 11/29/16 16:37 Dose: 4 unit Insulin Detemir (Levemir) 15 unit SC DAILY [facility] Last Admin: 11/24/16 09:28 Dose: 15 unit Mirtazapine (Remeron) 15 mg PO HS [facility] Ondansetron HCl (Zofran Inj) 4 mg IVP Q6H PRN PRN Reason: Nausea/Vomiting Last Admin: 11/28/16 12:06 Dose: 4 mg Pantoprazole Sodium (Protonix Ec Tab) 40 mg PO BID [facility] Last Admin: 11/29/16 17:07 Dose: 40 mg Saccharomyces Boulardii (Florastor) 250 mg PO BID [facility] Last Admin: 11/29/16 17:07 Dose: 250 mg Sertraline HCl (Zoloft) 50 mg PO DAILY [facility] Last Admin: 11/29/16 17:07 Dose: 50 mg Trazodone HCl (Desyrel) 50 mg PO HS [facility] Zolpidem Tartrate (Ambien) 5 mg PO HS PRN PRN Reason: Insomnia - Labs Labs: 11/29/16 05:59 11/29/16 05:59 PT 13.7 SECONDS (9.7-12.2) H 11/29/16 04:00 INR 1.2 11/29/16 04:00 APTT 41 SECONDS (21-34) H D 11/29/16 04:00 Attending/Attestation - Attestation I have personally seen and examined this patient.: Yes I have fully participated in the care of the patient.: Yes I have reviewed all pertinent clinical information, including history, physical exam and plan: Yes Notes (Text): 11/29/16 17:38 Patient was seen and examined 11/28/16. Exam, assessment and plan were thoroughly gone over with the Resident at that time. Bobo Harris D.O.
[2016-11-28] MEDS: Enoxaparin 100 mg Syringe SC SCH (21:33)
[2016-11-29] MEDS: metroNIDAZOLE IV 500 mg/100 ml 500 MG/100 ML BAG IVPB SCH ×2 (01:24→09:05)
--- NOTE | 2016-11-29 04:11 | CP.PCM.PN ---
Subjective - Date & Time of Evaluation Date of Evaluation: 11/28/16 Time of Evaluation: 19:00 - Subjective Subjective: Vomited coffee grounds Wants to think about port, deferred for now Objective - Vital Signs/Intake and Output Vital Signs (last 24 hours): Temp Pulse Resp BP Pulse Ox 98.4 F 109 H 18 128/68 97 11/29/16 00:00 11/29/16 00:00 11/29/16 00:00 11/29/16 00:00 11/28/16 20:00 Intake and Output: 11/28/16 11/29/16 18:59 06:59 Intake Total 555 250 Output Total 251 300 Balance 304 -50 - Medications Medications: Current Medications Dextrose (Dextrose 50% Inj) 0 ml IV STAT PRN; Protocol PRN Reason: Hyglycemia Protocol Last Admin: 11/18/16 06:21 Dose: 50 ml Enoxaparin Sodium (Lovenox) 90 mg SC Q12 [facility] Last Admin: 11/28/16 21:33 Dose: 90 mg Furosemide (Lasix) 20 mg IVP Q12 [facility] Last Admin: 11/28/16 21:33 Dose: 20 mg Hydromorphone HCl (Dilaudid) 0.5 mg IVP Q4H PRN PRN Reason: Pain, moderate (4-7) Last Admin: 11/26/16 23:28 Dose: 0.5 mg Imipenem/Cilastatin Sodium 500 (mg/ Sodium Chloride) 100 mls @ 100 mls/hr IVPB Q6H [facility] Last Admin: 11/28/16 21:32 Dose: 100 mls/hr Metronidazole (Flagyl) 500 mg in 100 mls @ 100 mls/hr IVPB Q8H [facility] Last Admin: 11/29/16 01:24 Dose: 100 mls/hr Insulin Aspart (Novolog) 0 unit SC ACHS [facility] PRN Reason: Protocol Last Admin: 11/28/16 21:41 Dose: Not Given Insulin Detemir (Levemir) 15 unit SC DAILY [facility] Last Admin: 11/24/16 09:28 Dose: 15 unit Ondansetron HCl (Zofran Inj) 4 mg IVP Q6H PRN PRN Reason: Nausea/Vomiting Last Admin: 11/28/16 12:06 Dose: 4 mg Pantoprazole Sodium (Protonix Ec Tab) 40 mg PO BID [facility] Last Admin: 11/28/16 17:59 Dose: 40 mg Saccharomyces Boulardii (Florastor) 250 mg PO BID [facility] Last Admin: 11/28/16 17:58 Dose: 250 mg Zolpidem Tartrate (Ambien) 5 mg PO HS PRN PRN Reason: Insomnia - Labs Labs: 11/27/16 06:42 11/27/16 06:42 PT 14.8 SECONDS (9.7-12.2) H 11/27/16 06:42 INR 1.3 11/27/16 06:42 APTT 152 SECONDS (21-34) H* D 11/28/16 00:59 - Head Exam Head Exam: ATRAUMATIC - Eye Exam Eye Exam: Normal appearance - ENT Exam ENT Exam: Mucous Membranes Dry - Respiratory Exam Respiratory Exam: NORMAL BREATHING PATTERN - Cardiovascular Exam Cardiovascular Exam: +S1, +S2 - GI/Abdominal Exam GI & Abdominal Exam: Normal Bowel Sounds - Extremities Exam Extremities Exam: Pedal Edema Assessment and Plan (1) Colon cancer Assessment & Plan: with bladder involvment unable to resect for possible neoadjuvant chemotherapy as outpatient if agreeable Status: Acute (2) DVT (deep venous thrombosis) Assessment & Plan: therapeutic anticoagulation Status: Acute (3) Anemia Assessment & Plan: GI bleeding, hematuria transfusion support PRN Status: Acute (4) Pancreatic lesion Assessment & Plan: negative for malignancy Status: Acute
[2016-11-29 06:14] LABS: BASO % 0.1 % (0.0-2.0); EOS % 0.1 % (0.0-4.0); LYMPH # 1.5 K/uL (1.0-4.3); LYMPH % 13.1 % (20.0-40.0); MEAN CELL VOLUME 74.8 fL (80.0-94.0); MEAN CORPUSCULAR HEMOGLOBIN 24.1 pg (27.0-31.0); MEAN CORPUSCULAR HGB CONC 32.2 g/dL (33.0-37.0); MEAN PLATELET VOLUME 8.5 fL (7.2-11.7); MONO # 0.7 K/uL (0.0-0.8); MONO % 6.3 % (0.0-10.0); RED CELL DISTRIBUTION WIDTH 24.8 % (11.5-14.5); WHITE BLOOD COUNT 11.5 K/uL (4.8-10.8)
[2016-11-29 06:25] LABS: ALB/GLOB RATIO 0.8 (1.0-2.1); ALKALINE PHOSPHATASE 154 U/L (38-126); ALT/SGPT 32 U/L (21-72); AST/SGOT 16 U/L (17-59); BILIRUBIN,TOTAL 0.4 mg/dL (0.2-1.3); BLOOD UREA NITROGEN 20 mg/dL (9-20); CALCIUM 6.7 mg/dl (8.6-10.4); CARBON DIOXIDE 21 mmol/L (22-30); CHLORIDE 101 mmol/L (98-107); GFR AFRICAN-AMERICAN > 60; GLUCOSE,RANDOM 196 mg/dL (75-110); MAGNESIUM 1.6 mg/dL (1.6-2.3); PHOSPHOROUS 3.5 mg/dL (2.5-4.5); POTASSIUM 3.9 mmol/L (3.6-5.2); SODIUM 135 mmol/L (132-148); TOTAL PROTEIN 3.8 g/dL (6.3-8.3)
[2016-11-29 06:35] LABS: INR 1.2
--- NOTE | 2016-11-29 07:24 | CP.PCM.PN ---
<Radha Carrillo - Last Filed: 11/29/16 16:04> Subjective - Date & Time of Evaluation Date of Evaluation: 11/29/16 Time of Evaluation: 09:57 - Subjective Subjective: Cardiology progress note for Dr. Ruiz Patient seen and examined at bedside. Patient is POD#3 rigid sigmnoidoscopy and exlap- tumor was unable to be resected due to multiple areas of fixation. Patient reported he slept well last night and was requesting the same medication for tonight. Overnight patient had an episode of coffee ground emesis. He reported he was able to tolerate his breakfast and had one nonbloody nonmelanotic BM today. He denied acute complaints of fever, chills, headache, dizziness, chest pain, palpitations, SOB, cough, nausea, vomiting, bladder complaints, pain in his legs bilaterally. Objective - Vital Signs/Intake and Output Vital Signs (last 24 hours): Temp Pulse Resp BP Pulse Ox 97.4 F L 107 H 19 99/67 L 99 11/29/16 04:00 11/29/16 04:00 11/29/16 04:00 11/29/16 04:00 11/29/16 04:00 Intake and Output: 11/29/16 11/29/16 06:59 18:59 Intake Total 250 Output Total 300 Balance -50 - Medications Medications: Current Medications Dextrose (Dextrose 50% Inj) 0 ml IV STAT PRN; Protocol PRN Reason: Hyglycemia Protocol Last Admin: 11/18/16 06:21 Dose: 50 ml Enoxaparin Sodium (Lovenox) 90 mg SC Q12 [facility] Last Admin: 11/28/16 21:33 Dose: 90 mg Furosemide (Lasix) 20 mg IVP Q12 [facility] Last Admin: 11/28/16 21:33 Dose: 20 mg Hydromorphone HCl (Dilaudid) 0.5 mg IVP Q4H PRN PRN Reason: Pain, moderate (4-7) Last Admin: 11/26/16 23:28 Dose: 0.5 mg Imipenem/Cilastatin Sodium 500 (mg/ Sodium Chloride) 100 mls @ 100 mls/hr IVPB Q6H [facility] Last Admin: 11/28/16 21:32 Dose: 100 mls/hr Metronidazole (Flagyl) 500 mg in 100 mls @ 100 mls/hr IVPB Q8H [facility] Last Admin: 11/29/16 01:24 Dose: 100 mls/hr Insulin Aspart (Novolog) 0 unit SC ACHS [facility] PRN Reason: Protocol Last Admin: 11/28/16 21:41 Dose: Not Given Insulin Detemir (Levemir) 15 unit SC DAILY [facility] Last Admin: 11/24/16 09:28 Dose: 15 unit Ondansetron HCl (Zofran Inj) 4 mg IVP Q6H PRN PRN Reason: Nausea/Vomiting Last Admin: 11/28/16 12:06 Dose: 4 mg Pantoprazole Sodium (Protonix Ec Tab) 40 mg PO BID [facility] Last Admin: 11/28/16 17:59 Dose: 40 mg Saccharomyces Boulardii (Florastor) 250 mg PO BID [facility] Last Admin: 11/28/16 17:58 Dose: 250 mg Zolpidem Tartrate (Ambien) 5 mg PO HS PRN PRN Reason: Insomnia - Labs Labs: 11/29/16 05:59 11/29/16 05:59 PT 13.7 SECONDS (9.7-12.2) H 11/29/16 04:00 INR 1.2 11/29/16 04:00 APTT 41 SECONDS (21-34) H D 11/29/16 04:00 - Constitutional Appears: Chronically Ill - Head Exam Head Exam: ATRAUMATIC, NORMOCEPHALIC - Eye Exam Eye Exam: Normal appearance. absent: Conjunctival injection, Scleral icterus - ENT Exam ENT Exam: Mucous Membranes Moist - Respiratory Exam Respiratory Exam: Clear to Ausculation Bilateral, NORMAL BREATHING PATTERN. absent: Accessory Muscle Use, Rales, Rhonchi, Wheezes, Respiratory Distress - Cardiovascular Exam Cardiovascular Exam: Tachycardia, REGULAR RHYTHM, RRR, +S1, +S2 - GI/Abdominal Exam GI & Abdominal Exam: Soft, Normal Bowel Sounds Additional comments: midline surgical incision c/d/i - jody intact - Extremities Exam Extremities Exam: Pedal Edema. 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 Cardiology was consulted for surgery risk assessment Plan: -POD#3 rigid sigmnoidoscopy and exlap- tumor was unable to be resected due to multiple areas of fixation -Patient has hx of HTN and DM2 -11/15 EKG: sinus tachycardia HR @ 126bpm -Lipid panel: T Cholesterol: 65 LDL: 31 HDL: 25 -HgbA1c: 11.5 Levemir 15U sc daily RISS -Lexiscan completed on 11/25 defect in mid-anteroseptal wall defect in basal anteroseptal wall Fixed apical defect old ID small inferior wall defect -Echo 11/25/16 EF 51% [50-55%] LV systolic function normal No aortic regurgitation is present No mitral valve regurgitation noted Mild tricuspid regurgitation Mild-mod pulmonary hypertension No pulmonic valvular regurgitation -Echo 10/14/16 EF 46% Overall LV systolic function appears borderline and there is a suggestion of septal hypokinesis -Continue current management in critical care unit Lovenox 90mg sc q12 Lasix 20mg ivp q12 -Patient on Ambien 5mg po hs for insomnia Patient will need outpatient cardiology evaluation Upon discharge patient is to follow up in [facility] for continued cardiology observation and treatment with Dr. Ruiz Case discussed with Dr. Sara Carrillo PGY2 <Jose Ruiz - Last Filed: 12/26/16 07:27> Objective - Vital Signs/Intake and Output Vital Signs (last 24 hours): Temp Pulse Resp BP Pulse Ox 98.4 F 100 H 20 110/70 99 12/22/16 23:25 12/22/16 23:25 12/22/16 23:25 12/22/16 23:25 12/22/16 23:25 - Labs Labs: 12/21/16 06:30 12/21/16 06:30 PT 15.0 SECONDS (9.7-12.2) H 12/03/16 07:08 INR 1.3 12/03/16 07:08 APTT 37 SECONDS (21-34) H 12/03/16 07:08 Attending/Attestation - Attestation I have personally seen and examined this patient.: Yes I have fully participated in the care of the patient.: Yes I have reviewed all pertinent clinical information, including history, physical exam and plan: Yes Notes (Text): 12/26/16 07:26 pt difficult cancer that metastatized and difficult to resect rate stable
[2016-11-29] MEDS: (Novolog) Insulin Aspart, Recombinant 100 u/ml 10 ml vial SC SCH ×4 (08:13→21:44)
[2016-11-29] MEDS: Saccharomyces Boulardi 250 mg Cap PO SCH ×2 (09:06→17:07)
[2016-11-29] MEDS: Pantoprazole 40 mg EC Tab PO SCH ×2 (09:07→17:07)
[2016-11-29] MEDS: Enoxaparin 100 mg Syringe SC SCH ×2 (09:09→21:41)
--- NOTE | 2016-11-29 10:40 | CP.PCM.PN ---
Subjective - Date & Time of Evaluation Date of Evaluation: 11/29/16 Time of Evaluation: 10:35 - Subjective Subjective: Hospitalist Progress Note (Patient was seen and examined in ICU Bed 7 10:35 AM ) 66 year old male who is POD #3 for Laparotomy to remove RectoSigmoid Mass. However, mass could not be removed due to size. Therefore Hematology/Oncology recommended neoadjuvent chemotherapy to help reduce size prior to another attempt at removal of mass. Patient currently does not want Chemotherapy Port placed as he undecided whether he wants to pursue treatment. Please see Assessment and Plans below for further details of other issues for this patient. Upon FULL ROS He fells better today as he was able to sleep last night However, states that he is tired of all of his medical issues and for now is undecided as to what he wants to do concerning further management NO abdominal pain NO n/v today after eating a bannana, orange juice, and some farina NO SOB/Cough/Wheezing/Dyspnea Had a small nonbloody bowel movement this morning NO other complaints upon FULL ROS - Constitutional Appears: No Acute Distress - Head Exam Head Exam: NORMAL INSPECTION - Eye Exam Eye Exam: Normal appearance - ENT Exam ENT Exam: Mucous Membranes Moist - Neck Exam Neck Exam: Normal Inspection - Respiratory Exam Respiratory Exam: Clear to Ausculation Bilateral, NORMAL BREATHING PATTERN - Cardiovascular Exam Cardiovascular Exam: Tachycardia, REGULAR RHYTHM, +S1, +S2 - GI/Abdominal Exam GI & Abdominal Exam: Soft, Normal Bowel Sounds. absent: Tenderness Central Midline Surgical site with intact jody, no erythema, no warmth, no dehiscence, no discharge - Rectal Exam Rectal Exam: Deferred - Extremities Exam Extremities Exam: Pedal Edema Additional comments: (+) 2+ pitting edema bilateral LEs up to knee, appears to have decreased from exam on 11/28/16 when Lasix was started (+) 2+ pitting edema to the bilateral UEs (R>L arm) up to elbow. - Neurological Exam Neurological Exam: Alert, Awake - Psychiatric Exam Psychiatric exam: Normal Affect, Normal Mood - Skin Skin Exam: Dry, Intact, Normal Color, Warm Assessment and Plan - Assessment and Plan (Free Text) Assessment: (1) Chronic diarrhea 2/2 10 cm Sigmoid Mass 11/29/16: POD #3. Patient is still undecided concerning further management. If he decides to proceed then he will need a Chemo Port placed. He has signed DNR/ DNI. I discussed patient's decision concerning further treatment with Dr. Willow Garcia on the night of 11/28/1611/28: s/p exploratory laparotomy POD2, w/ findings of unresectable rectosigmoid mass. Patient stated today he does not want the chemoport, he said he wants time to think about it. Patient appears tired and he does not want to make sudden decisions. No morning labs, blood draw was difficult this morning due to poor vein access. 11/27: s/p exploratory laparotomy POD1, w/ findings of unresectable rectosigmoid mass. Per surgery note, patient will need a portacath placement, time and date to be determined. Will stop heparin drip (tx for RUE deep vein thrombosis) 4 hours prior to portacath placement procedure. 11/26: Per surgical assistant certified, the surgery today to resect patient's sigmoid mass was halted after it was determined the mass was too large/firm for removal. The patient will be treated with a neoadjuvant with hopes of shrinking the size of the tumor with possible surgery for removal at a later date. Patient was sent to ICU post OR for monitoring. 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 Due to lovenox longer half life, therapeutic lovenox was discontinued and heparin was started. Heparin 8000u iv bolus was given and heparin drip was started at 18u/kg/hr. This drip will be stopped at exactly 5am, 4 hours before surgery. 11/25: Cardiology consulted for risk stratification for procedure. Stress test was normal. ECHO results pending. 11/25: c.diff negative. f/u ova and parasite. 11/25: per dr Garcia, megace was discontinued as it can cause blood clots. megace was originally ordered to stimulate appetite. 11/22: Pt advanced to solid food diet today. Surgery planning for OR 11/26. Added marinol to increased appetite per surgery request. 11/21: Pt s/p cystoscopy today. Patient found to have invasion to dome of urinary bladder. Surgery to plan for surgery some time next week 11/21: GI has signed off. 11/21: Per GI, Abdominal U/S obtained to rule out SV thrombosis given presence of gastroesopahgeal varices seen on endoscopic examination -> Abdominal U/S: 1. Hepatocellular disease without focal hepatic mass. 2. Patent portal venous system including splenic vein. 3. Cholelithiasis. No sonographic evidence of acute cholecystitis. 4. Cystic mass in the head of the pancreas. Remainder the pancreas is not visualized. 11/21: PICC placed today by IR DR Armando. 11/20: Dr Benji Jon will do cystoscopy tomorrow as surgery believes a cystoscopy could aid in surgical planning, surgery concerned about air in bladder and the way the mass abuts the bladder as seen on CT. Patient will be npo after midnight. 11/20: s/p upper EUS: "LA grade C erosive esophagitis. 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 75mm x 65mm psedocyst seen in pancreatic body, fine needle aspiration for fluid performed. Varices were visualized endosonographically in fundus of stomach". Will f/u cystology and CEA levels. 11/20: s/p venous duplex of upper extremities: "right: acute thrombosis of right subclavian, axillary and brachial veins with severe reduction of venous return. left: acute thrombosis of left cephatlic vein with severe reduction of venous return". Therapeutic lovenox started -> 90mg q12 sc. 11/20: s/p venous duplex of lower extremeties: negative 11/20: PICC line placed today. Magnesium was low, repleted. 11/19: GI to perform EUS tomorrow. Advanced diet to liquid - will advance as tolerated. B/l upper and lower extremity duplex scans were ordered today. 11/18: Patient is s/p EGD/Colonoscopy. A 10cm partially obstructing sigmoid mass was seen and biopsied. Multiple polyps were seen and resected. Heme/Onc, Dr Garcia has been consulted, we will follow up with his recommendations. 11/17: Still having the diarrhea. The C diff studies are pending. He will need to be on IV Flagyl. 11/16: Pending CT of abd / pelvis results. The appears to be a possible pancreatic area mass as well as colonic mass. The night team has already ordered tumor markers as well as stool studies. Abx were also ordered and the WBC decreased. CT chest abdomen and pelvis findings as noted: suspected sigmoid and proximal rectum mass lesion without evidence of high grade bowel obstruction; suspected abscess formation; cystic mass lesion noted at pancreas with surrounding fat stranding of the pancreatic tail; large gallstones without evidence of acute cholecystitis GI consult (Dr. Srivastava)---> Help appreciated General Surgery Consult (Dr. Amin)----> Help appreciated Urology Consult ( Dr. Jon)----> Help appreciated * All consulted due to unofficial read of CT Scan of chest/abdomen/pelvis: Intra -abdominal abscess/malignancy and bladder wall thickening * Still pending official radiologist report Potassium chloride/dextrose/sodium cl @ 100ml/hr iv q10 Stool culture negative for salmonella, shigella, campylobacter Stool leukocytes negative Ova and parasites not seen C. diffi toxin AB negative (2) Syncope - possibly secondary to ongoing diarrhea Resolved (3) Gram - negative positive blood cultures 11/29/16: E. coli in blood culture on 11/15/16. Repeat blood culture on 11/23/16 was finalized as negative. I will speak with ID Dr. Burns concerning how much longer we need to continue the Primaxin and Flagyl 11/27: wbc trending down. afebrile. will continue primaxin and flagyl and monitor bands and wbc. Blood cultures negative after 3 days. 11/26: Patient in ICU for monitoring post OR, Bands 12 today, will monitor. 11/25: Blood cultures are negative after [address] Burns, con't tx for minimum of 14 days; Primaxin and Flagyl both started on 11/17. 11/19: HIV screen negative, Hep panel negative. Bands 26 today. 11/18: HIV 1&2 antibodies, Hep panel were ordered today. ID has been consulted, Dr Burns, we will follow his recommendations. 11/17: Changed to IV Primaxin 500mg IV Q6 Follow cultures. Currently blood pressure and HR stable. Nonfebrile. Continue with the IVF, monitor lowe outputs (4) Urinary tract infection Resolved Patient was treated with Fluconazole for budding yeast found in urine (5) Metabolic acidosis, increased anion gap Resolved (6) Hypertension May have been secondary to the LR s/p surgery. The LR was stopped on 11/28/16. Patient was started on Lasix 20 mg IV Q12H on 11/28/16 as this will also help with the peripheral edema (7) Uncontrolled diabetes mellitus Recent HgbA1C: 9.0 (09/28/16) Accuchecks Aspart ISS Levemir 15 units Hold glipizide (8) Ulcerated mucosa of esophagus Will instruct patient to follow up with GI specialist (referral from [facility]) outpatient. 11/18: Per endoscopy report -> Ulcerated mucosa in the lower third of the esophagus was seen and biopsied. Patient is on Protonix 40 mg PO BID. (9) Cystic mass lesion noted at pancreas with surrounding fat stranding of the pancreatic tail Will instruct patient to follow up with GI specialist (referral from [facility]) outpatient. 11/26: Pancreatic cyst FNA negative for malignant cells per cytology report. 11/25: Per dental laboratory supervisor, EUS performed on 11/20 sampled pancreatic cyst fluid with diagnostic studies ordered for ptf amylase and ptf CEA only 11/20: Upper EUS performed today: "75mm x 65mm psedocyst seen in pancreatic body , fine needle aspiration for fluid performed 11/18: CT abd/pelvis shows cystic mass lesion at pancreas with fat stranding of pacreatic tail. Lipase level and lipid panel was ordered today. 11/17: CA 19-9 wnl (10) Cholelithiasis Will instruct patient to follow up with GI specialist (referral from [facility]) outpatient. 11/18: CT abd/pelvis shows large gallstones without evidence of acute cholecystitis. (11) Hypocalcemia Corrected for albumin, the calcium is normal (12) Anemia 2/2 Anemia of Chronic Disease 11/29: HgB/Hct is 9.0/28.0 11/27: H/H stable, will continue to monitor. 11/26: After discussing with Heme/Onc Dr Garcia, since Ferritin is normal ferrlecit will not provide much benefit, will discontinue 11/25: Will start Ferrlecit 125mg iv daily after surgical procedure 11/25: Hgb stable at 8.6. (13) Right Arm Deep Vein Thrombosis 11/29: Heparin Drip was discontinued on 11/28/16 as PTT could not be measured secondary to inability to draw blood from edematous arms and could not draw blood from left arm PICC for the PTT level due to the Heprin Drip being infused through the PICC. Therefore patient was restarted on therapeutic Lovenox at 90 mg SC Q12H 11/27: Heparin drip restarted at 18u/kg/hr. Heparin bolus 8,000u given prior to start of drip. 11/26: Per surgery, plan is to restart anticoagulant tomorrow morning (14) Abnormal Stress Test Upon discharge patient is to follow up in [facility] for continued cardiology observation and treatment with Dr. Ruiz 11/25: Nuclear Stress Test: Defect in mid-anteroseptal wall, defect in basal inferoseptal wall, fixed apical defect old [place], small defect inferior wall 11/25: ECHO: left ventricle systolic function is normal. EF is 50-55%. (15) Prophylactic measure Protonix 40 mg PO BID He is on therapeutic Lovenox Florastor PO BID Ambien 5 mg PO HS Glucerna Shake 3 times a day help increase his protein level Physical Therapy started on 11/29/16 F/U Psychiatry recommendations for the patient's likely depression Palliative Care Nurse Breanne has spoken with patient and he has decided on DNR /DNI and POLST has been placed in front of the patients chart. Bobo Harris D.O. Objective - Vital Signs/Intake and Output Vital Signs (last 24 hours): Temp Pulse Resp BP Pulse Ox 97.6 F 109 H 20 116/74 100 11/29/16 08:00 11/29/16 08:00 11/29/16 08:00 11/29/16 09:07 11/29/16 08:00 Intake and Output: 11/29/16 11/29/16 06:59 18:59 Intake Total 250 Output Total 900 Balance -650 - Medications Medications: Current Medications Dextrose (Dextrose 50% Inj) 0 ml IV STAT PRN; Protocol PRN Reason: Hyglycemia Protocol Last Admin: 11/18/16 06:21 Dose: 50 ml Enoxaparin Sodium (Lovenox) 90 mg SC Q12 [facility] Last Admin: 11/29/16 09:09 Dose: 90 mg Furosemide (Lasix) 20 mg IVP Q12 [facility] Last Admin: 11/29/16 09:07 Dose: 20 mg Hydromorphone HCl (Dilaudid) 0.5 mg IVP Q4H PRN PRN Reason: Pain, moderate (4-7) Last Admin: 11/26/16 23:28 Dose: 0.5 mg Imipenem/Cilastatin Sodium 500 (mg/ Sodium Chloride) 100 mls @ 100 mls/hr IVPB Q6H [facility] Last Admin: 11/29/16 08:14 Dose: 100 mls/hr Metronidazole (Flagyl) 500 mg in 100 mls @ 100 mls/hr IVPB Q8H [facility] Last Admin: 11/29/16 09:05 Dose: 100 mls/hr Insulin Aspart (Novolog) 0 unit SC ACHS [facility] PRN Reason: Protocol Last Admin: 11/29/16 08:13 Dose: 6 unit Insulin Detemir (Levemir) 15 unit SC DAILY [facility] Last Admin: 11/24/16 09:28 Dose: 15 unit Ondansetron HCl (Zofran Inj) 4 mg IVP Q6H PRN PRN Reason: Nausea/Vomiting Last Admin: 11/28/16 12:06 Dose: 4 mg Pantoprazole Sodium (Protonix Ec Tab) 40 mg PO BID [facility] Last Admin: 11/29/16 09:07 Dose: 40 mg Saccharomyces Boulardii (Florastor) 250 mg PO BID [facility] Last Admin: 11/29/16 09:06 Dose: 250 mg Zolpidem Tartrate (Ambien) 5 mg PO HS PRN PRN Reason: Insomnia - Labs Labs: 11/29/16 05:59 11/29/16 05:59 PT 13.7 SECONDS (9.7-12.2) H 11/29/16 04:00 INR 1.2 11/29/16 04:00 APTT 41 SECONDS (21-34) H D 11/29/16 04:00
--- NOTE | 2016-11-29 11:43 | CP.PCM.PN ---
Objective - Vital Signs/Intake and Output Vital Signs (last 24 hours): Temp Pulse Resp BP Pulse Ox 97.6 F 109 H 20 116/74 100 11/29/16 08:00 11/29/16 08:00 11/29/16 08:00 11/29/16 09:07 11/29/16 08:00 Intake and Output: 11/29/16 11/29/16 06:59 18:59 Intake Total 250 Output Total 900 Balance -650 - Medications Medications: Current Medications Dextrose (Dextrose 50% Inj) 0 ml IV STAT PRN; Protocol PRN Reason: Hyglycemia Protocol Last Admin: 11/18/16 06:21 Dose: 50 ml Enoxaparin Sodium (Lovenox) 90 mg SC Q12 [facility] Last Admin: 11/29/16 09:09 Dose: 90 mg Furosemide (Lasix) 20 mg IVP Q12 [facility] Last Admin: 11/29/16 09:07 Dose: 20 mg Hydromorphone HCl (Dilaudid) 0.5 mg IVP Q4H PRN PRN Reason: Pain, moderate (4-7) Last Admin: 11/26/16 23:28 Dose: 0.5 mg Imipenem/Cilastatin Sodium 500 (mg/ Sodium Chloride) 100 mls @ 100 mls/hr IVPB Q6H [facility] Last Admin: 11/29/16 08:14 Dose: 100 mls/hr Metronidazole (Flagyl) 500 mg in 100 mls @ 100 mls/hr IVPB Q8H [facility] Last Admin: 11/29/16 09:05 Dose: 100 mls/hr Insulin Aspart (Novolog) 0 unit SC ACHS [facility] PRN Reason: Protocol Last Admin: 11/29/16 08:13 Dose: 6 unit Insulin Detemir (Levemir) 15 unit SC DAILY [facility] Last Admin: 11/24/16 09:28 Dose: 15 unit Ondansetron HCl (Zofran Inj) 4 mg IVP Q6H PRN PRN Reason: Nausea/Vomiting Last Admin: 11/28/16 12:06 Dose: 4 mg Pantoprazole Sodium (Protonix Ec Tab) 40 mg PO BID [facility] Last Admin: 11/29/16 09:07 Dose: 40 mg Saccharomyces Boulardii (Florastor) 250 mg PO BID [facility] Last Admin: 11/29/16 09:06 Dose: 250 mg Zolpidem Tartrate (Ambien) 5 mg PO HS PRN PRN Reason: Insomnia - Labs Labs: 11/29/16 05:59 11/29/16 05:59 PT 13.7 SECONDS (9.7-12.2) H 11/29/16 04:00 INR 1.2 11/29/16 04:00 APTT 41 SECONDS (21-34) H D 11/29/16 04:00 Assessment and Plan (1) Syncope Status: Acute (2) Chronic diarrhea Status: Acute (3) Hypokalemia Status: Acute (4) Leukocytosis (leucocytosis) Status: Acute (5) Urinary tract infection Status: Acute (6) Metabolic acidosis, increased anion gap Status: Acute (7) Hypertension Status: Chronic (8) Uncontrolled diabetes mellitus Status: Chronic (9) Prophylactic measure Status: Acute
[2016-11-29] MEDS: cefTRIAXone 2 GM in Sodium Chloride 0.9% 100 ML IVPB SCH (13:16)
--- NOTE | 2016-11-29 13:45 | CP.PCM.PN ---
Subjective - Date & Time of Evaluation Date of Evaluation: 11/29/16 Time of Evaluation: 07:00 - Subjective Subjective: Patient seen and examined this morning. In better spirits today. Patient reported having a small episode of emesis throughout the night. Abdominal incision site dressings removed. Surgical incision site is c/d/i. Objective - Vital Signs/Intake and Output Vital Signs (last 24 hours): Temp Pulse Resp BP Pulse Ox 98.1 F 118 H 20 150/90 97 11/29/16 12:00 11/29/16 12:00 11/29/16 12:00 11/29/16 12:00 11/29/16 12:00 Intake and Output: 11/29/16 11/29/16 06:59 18:59 Intake Total 250 Output Total 900 Balance -650 - Medications Medications: Current Medications Dextrose (Dextrose 50% Inj) 0 ml IV STAT PRN; Protocol PRN Reason: Hyglycemia Protocol Last Admin: 11/18/16 06:21 Dose: 50 ml Enoxaparin Sodium (Lovenox) 90 mg SC Q12 [facility] Last Admin: 11/29/16 09:09 Dose: 90 mg Furosemide (Lasix) 20 mg IVP Q12 [facility] Last Admin: 11/29/16 09:07 Dose: 20 mg Hydromorphone HCl (Dilaudid) 0.5 mg IVP Q4H PRN PRN Reason: Pain, moderate (4-7) Last Admin: 11/26/16 23:28 Dose: 0.5 mg Ceftriaxone Sodium 2 gm/ (Sodium Chloride) 100 mls @ 200 mls/hr IVPB Q24H [facility] Last Admin: 11/29/16 13:16 Dose: 200 mls/hr Insulin Aspart (Novolog) 0 unit SC ACHS [facility] PRN Reason: Protocol Last Admin: 11/29/16 11:48 Dose: 6 unit Insulin Detemir (Levemir) 15 unit SC DAILY [facility] Last Admin: 11/24/16 09:28 Dose: 15 unit Ondansetron HCl (Zofran Inj) 4 mg IVP Q6H PRN PRN Reason: Nausea/Vomiting Last Admin: 11/28/16 12:06 Dose: 4 mg Pantoprazole Sodium (Protonix Ec Tab) 40 mg PO BID [facility] Last Admin: 11/29/16 09:07 Dose: 40 mg Saccharomyces Boulardii (Florastor) 250 mg PO BID [facility] Last Admin: 11/29/16 09:06 Dose: 250 mg Zolpidem Tartrate (Ambien) 5 mg PO HS PRN PRN Reason: Insomnia - Labs Labs: 11/29/16 05:59 11/29/16 05:59 PT 13.7 SECONDS (9.7-12.2) H 11/29/16 04:00 INR 1.2 11/29/16 04:00 APTT 41 SECONDS (21-34) H D 11/29/16 04:00 - Constitutional Appears: No Acute Distress - Head Exam Head Exam: NORMOCEPHALIC - Eye Exam Eye Exam: Normal appearance - ENT Exam ENT Exam: Mucous Membranes Moist - Respiratory Exam Respiratory Exam: NORMAL BREATHING PATTERN - Cardiovascular Exam Cardiovascular Exam: +S1, +S2 - GI/Abdominal Exam GI & Abdominal Exam: Soft - Neurological Exam Neurological Exam: Alert, Awake, Oriented x3 - Psychiatric Exam Psychiatric exam: Normal Mood - Skin Skin Exam: Dry, Intact, Warm Assessment and Plan - Assessment and Plan (Free Text) Assessment: 66M s/p exploratory laparotomy POD3,w/ findings of unresectable rectosigmoid mass -Patient will need portacath placement, currently agreeing for placement. Patient states he spoke with Dr. Garcia and now he wants to go through with chemotherapy. -Regular diet -Protonix BID -Monitor vitals -c/w analgesic -C/w anti-emetic -Further recs per Dr. Brennan Whitaker PGY-2
--- NOTE | 2016-11-29 13:50 | CP.PCM.PN ---
Subjective - Date & Time of Evaluation Date of Evaluation: 11/29/16 Time of Evaluation: 11:30 - Subjective Subjective: Patient reports concerns regarding given diagnosis and unoperable tumor. Patient is debating of further goals of care and admits to depression and fear of . Objective - Vital Signs/Intake and Output Vital Signs (last 24 hours): Temp Pulse Resp BP Pulse Ox 98.1 F 118 H 20 150/90 97 11/29/16 12:00 11/29/16 12:00 11/29/16 12:00 11/29/16 12:00 11/29/16 12:00 Intake and Output: 11/29/16 11/29/16 06:59 18:59 Intake Total 250 Output Total 900 Balance -650 - Medications Medications: Current Medications Dextrose (Dextrose 50% Inj) 0 ml IV STAT PRN; Protocol PRN Reason: Hyglycemia Protocol Last Admin: 11/18/16 06:21 Dose: 50 ml Enoxaparin Sodium (Lovenox) 90 mg SC Q12 [facility] Last Admin: 11/29/16 09:09 Dose: 90 mg Furosemide (Lasix) 20 mg IVP Q12 [facility] Last Admin: 11/29/16 09:07 Dose: 20 mg Hydromorphone HCl (Dilaudid) 0.5 mg IVP Q4H PRN PRN Reason: Pain, moderate (4-7) Last Admin: 11/26/16 23:28 Dose: 0.5 mg Ceftriaxone Sodium 2 gm/ (Sodium Chloride) 100 mls @ 200 mls/hr IVPB Q24H [facility] Last Admin: 11/29/16 13:16 Dose: 200 mls/hr Insulin Aspart (Novolog) 0 unit SC ACHS [facility] PRN Reason: Protocol Last Admin: 11/29/16 11:48 Dose: 6 unit Insulin Detemir (Levemir) 15 unit SC DAILY [facility] Last Admin: 11/24/16 09:28 Dose: 15 unit Ondansetron HCl (Zofran Inj) 4 mg IVP Q6H PRN PRN Reason: Nausea/Vomiting Last Admin: 11/28/16 12:06 Dose: 4 mg Pantoprazole Sodium (Protonix Ec Tab) 40 mg PO BID [facility] Last Admin: 11/29/16 09:07 Dose: 40 mg Saccharomyces Boulardii (Florastor) 250 mg PO BID [facility] Last Admin: 11/29/16 09:06 Dose: 250 mg Zolpidem Tartrate (Ambien) 5 mg PO HS PRN PRN Reason: Insomnia - Labs Labs: 11/29/16 05:59 11/29/16 05:59 PT 13.7 SECONDS (9.7-12.2) H 11/29/16 04:00 INR 1.2 11/29/16 04:00 APTT 41 SECONDS (21-34) H D 11/29/16 04:00 - Constitutional Appears: No Acute Distress - Head Exam Head Exam: ATRAUMATIC, NORMAL INSPECTION, NORMOCEPHALIC - Eye Exam Eye Exam: EOMI, Normal appearance, PERRL Pupil Exam: NORMAL ACCOMODATION - ENT Exam ENT Exam: Mucous Membranes Moist, Normal Exam - Neck Exam Neck Exam: Normal Inspection - Respiratory Exam Respiratory Exam: Decreased Breath Sounds, Clear to Ausculation Bilateral, NORMAL BREATHING PATTERN - Cardiovascular Exam Cardiovascular Exam: REGULAR RHYTHM - GI/Abdominal Exam GI & Abdominal Exam: Hypoactive Bowel Sounds Additional comments: Surgical site - Rectal Exam Rectal Exam: Deferred - Exam Exam: NORMAL INSPECTION - Extremities Exam Additional comments: Right arm and hand gross edema - Back Exam Back Exam: NORMAL INSPECTION - Neurological Exam Neurological Exam: Alert, Oriented x3 Neuro motor strength exam: Left Upper Extremity: 2/1, Right Upper Extremity: 2/1 , Left Lower Extremity: 2/1, Right Lower Extremity: 2/1 - Psychiatric Exam Psychiatric exam: Depressed, Normal Affect, Normal Mood Assessment and Plan - Assessment and Plan (Free Text) Assessment: Patient is postop day # 2, in no acute distress. The surgery was attempted to resect sigmoid rectal mass, but due to extensive invasion of tumor into the bladder it was not possible, as per report. Patient is fully aware of his condition and had conversation with Doctor Garcia about Chemo Tx. Patient is not in any acute distress, alert, oriented X 3, with affect that is depressed. Patient admits to concerns about the progression of cancer . He understands the severity of cancer and hopes chemo Tx would help slow its progress. Skin is pale, there is edema of right arm and right hand. Edema also noted to LEs. lasix 20 mg BID on board. Abdomen is softly distended, patient is passing gasses. Reports mild abdominal pain of 5-7 . Pain responds to medications only. Patient is afebrile , Bp WNL. Goals of care discussed. Patient admits fear of dying and verbalizes impression of cancer as a deadly disease. At the same time, patient admits strong connection to God and his methodist and is ready to comply " with God's will". Patient finds comfort in visits from his friends and phone call from his son who lives in [place]. Patient plans on beginning chemo Tx with Doctor Jose. We discussed Code status. Very gently I suggested that his wishes for the end of life care should be documented as he had no close family near by, and he did not ant to make one a health care surrogate. Patient was very clear that he vidal fight for his life the best he can with help from the Medical staff. However, if all ordinary measures fail, patient would want to be allowed natural , without initiating aggressive, life support measures. I supported his attitude and willingness to fight the disease. Pros and cons of chemo Tx discussed as well. POL signed, DNR/DNI. Patient admitted to occasional feelings of sadness and haplessness but was not ready to start PO antidepressant. I suggested he talks to his family, friends, Quality Control Technician or Logistics Operations Manager and find support there. I discussed symptoms of depression and suggested if patient was unable to handle those symptoms alone, he should ask for help. Patient agreed. Impression * Newly diagnosed cancer patient * Cancer is not operable * Patient is facing the tough decision regarding the goals of care and states readiness to fight disease using all ordinary measures * Patient would not want his life to be prolonged on life support, if meaningful recovery was not expected * Patient admits feeling depressed but does not want to start antidepressants just yet * HUGO on chart * DNR/DNI * Pain management * Pastoral care for spiritual support This was shared with Doctor Joe Harris and he concurred.
--- NOTE | 2016-11-29 16:14 | CP.PCM.PN ---
Subjective - Date & Time of Evaluation Date of Evaluation: 11/29/16 Time of Evaluation: 08:00 - Subjective Subjective: s/p OR/ exploration IV rx in progress for 3 weeks iv rx Objective - Vital Signs/Intake and Output Vital Signs (last 24 hours): Temp Pulse Resp BP Pulse Ox 98.1 F 118 H 20 150/90 97 11/29/16 12:00 11/29/16 12:00 11/29/16 12:00 11/29/16 12:00 11/29/16 12:00 Intake and Output: 11/29/16 11/29/16 06:59 18:59 Intake Total 250 Output Total 900 Balance -650 - Medications Medications: Current Medications Dextrose (Dextrose 50% Inj) 0 ml IV STAT PRN; Protocol PRN Reason: Hyglycemia Protocol Last Admin: 11/18/16 06:21 Dose: 50 ml Enoxaparin Sodium (Lovenox) 90 mg SC Q12 [facility] Last Admin: 11/29/16 09:09 Dose: 90 mg Furosemide (Lasix) 20 mg IVP Q12 [facility] Last Admin: 11/29/16 09:07 Dose: 20 mg Hydromorphone HCl (Dilaudid) 0.5 mg IVP Q4H PRN PRN Reason: Pain, moderate (4-7) Last Admin: 11/26/16 23:28 Dose: 0.5 mg Ceftriaxone Sodium 2 gm/ (Sodium Chloride) 100 mls @ 200 mls/hr IVPB Q24H [facility] Last Admin: 11/29/16 13:16 Dose: 200 mls/hr Insulin Aspart (Novolog) 0 unit SC ACHS [facility] PRN Reason: Protocol Last Admin: 11/29/16 11:48 Dose: 6 unit Insulin Detemir (Levemir) 15 unit SC DAILY [facility] Last Admin: 11/24/16 09:28 Dose: 15 unit Ondansetron HCl (Zofran Inj) 4 mg IVP Q6H PRN PRN Reason: Nausea/Vomiting Last Admin: 11/28/16 12:06 Dose: 4 mg Pantoprazole Sodium (Protonix Ec Tab) 40 mg PO BID [facility] Last Admin: 11/29/16 09:07 Dose: 40 mg Saccharomyces Boulardii (Florastor) 250 mg PO BID [facility] Last Admin: 11/29/16 09:06 Dose: 250 mg Zolpidem Tartrate (Ambien) 5 mg PO HS PRN PRN Reason: Insomnia - Labs Labs: 11/29/16 05:59 11/29/16 05:59 PT 13.7 SECONDS (9.7-12.2) H 11/29/16 04:00 INR 1.2 11/29/16 04:00 APTT 41 SECONDS (21-34) H D 11/29/16 04:00 - Constitutional Appears: Non-toxic, Chronically Ill - Head Exam Head Exam: NORMOCEPHALIC - Eye Exam Eye Exam: PERRL - ENT Exam ENT Exam: Mucous Membranes Dry - Neck Exam Neck Exam: absent: Lymphadenopathy - Respiratory Exam Respiratory Exam: Decreased Breath Sounds - Cardiovascular Exam Cardiovascular Exam: REGULAR RHYTHM - GI/Abdominal Exam GI & Abdominal Exam: Distended - Rectal Exam Rectal Exam: Deferred Assessment and Plan (1) Chronic diarrhea Status: Acute (2) Colonic mass Status: Acute (3) Diabetic ketosis Status: Acute (4) GI bleeding Status: Acute (5) E coli bacteremia Status: Acute (6) E coli bacteremia Status: Acute
--- NOTE | 2016-11-29 16:21 | PCM.PSYCH ---
Initial Psychiatric Evaluation - Initial Psychiatric Evaluation Type of Admission: Voluntary Legal Status: Capacity Chief Complaint (in patient's own words): I'm feeling okay History of Present Illness and Precipitating Events: This is a 66-year-old male, who lives alone, with history of cancer and chemotherapy was consulted because of depressed mood. Patient admits that diagnosis of cancer and he admits that he has to get the chemotherapy. As per the staff patient has signed DNR and DNI. Patient remained superficially cooperative but guarded about the details. He appeared depressed and reports poor sleep and poor appetite. Patient also appeared hopelessness during the interview, however he denies any feelings of hopelessness and helplessness. He denies any suicidal ideation and denies any auditory or visual hallucinations. He reports that he does not know how long he has to live, that' s why he signed DNR. Current Medications: Active Medications Generic Name Dose Route Start Last Admin Trade Name Freq PRN Reason Stop Dose Admin Dextrose 0 ml 11/18/16 02:13 11/18/16 06:21 Dextrose 50% Inj IV 50 ml STAT PRN Administration Hyglycemia Protocol Protocol Enoxaparin Sodium 90 mg 11/28/16 22:00 11/29/16 09:09 Lovenox SC 90 mg Q12 [facility] Administration Furosemide 20 mg 11/28/16 22:00 11/29/16 09:07 Lasix IVP 20 mg Q12 [facility] Administration Hydromorphone HCl 0.5 mg 11/26/16 11:45 11/26/16 23:28 Dilaudid IVP 0.5 mg Q4H PRN Administration Pain, moderate (4-7) Ceftriaxone Sodium 2 gm/ 100 mls @ 200 mls/hr 11/29/16 13:00 11/29/16 13:16 Sodium Chloride IVPB 200 mls/hr Q24H [facility] Administration Insulin Aspart 0 unit 11/16/16 07:30 11/29/16 11:48 Novolog SC 6 unit ACHS [facility] Administration Protocol Insulin Detemir 15 unit 11/16/16 10:30 11/24/16 09:28 Levemir SC 15 unit DAILY [facility] Administration Ondansetron HCl 4 mg 11/16/16 05:40 11/28/16 12:06 Zofran Inj IVP 4 mg Q6H PRN Administration Nausea/Vomiting Pantoprazole Sodium 40 mg 11/28/16 10:00 11/29/16 09:07 Protonix Ec Tab PO 40 mg BID [facility] Administration Saccharomyces Boulardii 250 mg 11/24/16 10:45 11/29/16 09:06 Florastor PO 250 mg BID [facility] Administration Zolpidem Tartrate 5 mg 11/28/16 22:00 Ambien PO HS PRN Insomnia Past Psychiatric History - Past Psychiatric History Previous Treatment History: None Pertinent Medical Hx (Current Medical&Sleep Prob, Allergies): Allergies Allergy/AdvReac Type Severity Reaction Status Date / Time No Known Allergies Allergy Verified 11/15/16 21:27 Lisinopril [Zestril] 5 mg PO DAILY #30 tab 10/16/16 Simvastatin 20 mg PO DAILY #30 tablet 10/16/16 GlipiZIDE [Glucotrol] 2.5 mg PO BID #60 tab 10/18/16 Review of Systems - Review of Systems All systems: reviewed and no additional remarkable complaints except - Psychiatric Psychiatric: Anxiety, Depression. absent: Suicidal Ideation Mental Status Examination - Personal Presentation Personal Presentation: Looks stated age - Affect Affect: Constricted, Depressed - Motor Activity Motor Activity: Calm - Reliability in Providing Information Reliability in Providing Information: Good - Speech Speech: Organized - Mood Mood: Depressed - Formal Thought Process Formal Thought Process: No Impairment - Obsessions/Compulsions Obsessions: No Compulsions: No - Cognitive Functions Orientation: Person, Place, Situation, Time Sensorium: Alert Attention/Concentration: Attentive Abstract Thinking: [place] Estimate of Intelligence: Below average Judgement: Imparied, as evidence by: Poor judgement, Imparied, as evidence by: Lack of insight into illness - Risk Risk: Diminished functioning - Strength & Assets Inventory Strength & Assets Inventory: Cooperative - Limitations Limitations: Living alone DSM 5 DX - DSM 5 DSM 5 Diagnosis: Major depressive disorder single episode moderate - Recommended/Plan of Treatment Treatment Recommendations and Plan of Treatment: Major depressive disorder single episode moderate CBT Psychoeducation Supportive therapy Zoloft 50 mg daily Trazodone 50 mg by mouth Hydroxyzine 25 mg by mouth prn - Smoking Cessation Smoking Cessation Initiated: No
[2016-11-30] MEDS: (Novolog) Insulin Aspart, Recombinant 100 u/ml 10 ml vial SC SCH ×4 (07:50→22:13)
[2016-11-30] MEDS: Enoxaparin 100 mg Syringe SC SCH ×2 (10:24→22:23)
[2016-11-30] MEDS: Pantoprazole 40 mg EC Tab PO SCH ×2 (10:24→17:29)
[2016-11-30] MEDS: Saccharomyces Boulardi 250 mg Cap PO SCH ×2 (10:28→17:29)
[2016-11-30] MEDS: cefTRIAXone 2 GM in Sodium Chloride 0.9% 100 ML IVPB SCH (12:22)
--- NOTE | 2016-11-30 15:13 | CP.PCM.PN ---
Subjective - Date & Time of Evaluation Date of Evaluation: 11/30/16 Time of Evaluation: 15:11 - Subjective Subjective: Surgery for Dr. Amin Pt s&jessenia SALAZAR. Denies F/C/N/V/D/CP/SOB. Pain controlled. Objective - Vital Signs/Intake and Output Vital Signs (last 24 hours): Temp Pulse Resp BP Pulse Ox 97.8 F 85 21 125/78 94 L 11/30/16 12:00 11/30/16 12:00 11/30/16 12:00 11/30/16 12:00 11/30/16 12:00 - Medications Medications: Current Medications Dextrose (Dextrose 50% Inj) 0 ml IV STAT PRN; Protocol PRN Reason: Hyglycemia Protocol Last Admin: 11/18/16 06:21 Dose: 50 ml Enoxaparin Sodium (Lovenox) 90 mg SC Q12 [facility] Last Admin: 11/30/16 10:24 Dose: 90 mg Furosemide (Lasix) 20 mg IVP Q12 [facility] Last Admin: 11/30/16 10:24 Dose: 20 mg Gabapentin (Neurontin) 100 mg PO TID [facility] Last Admin: 11/30/16 13:48 Dose: 100 mg Hydromorphone HCl (Dilaudid) 0.5 mg IVP Q4H PRN PRN Reason: Pain, moderate (4-7) Last Admin: 11/26/16 23:28 Dose: 0.5 mg Hydroxyzine HCl (Atarax) 25 mg PO Q6 PRN PRN Reason: Anxiety Ceftriaxone Sodium 2 gm/ (Sodium Chloride) 100 mls @ 200 mls/hr IVPB Q24H [facility] Last Admin: 11/30/16 12:22 Dose: 200 mls/hr Insulin Aspart (Novolog) 0 unit SC ACHS [facility] PRN Reason: Protocol Last Admin: 11/30/16 12:03 Dose: 6 unit Insulin Detemir (Levemir) 15 unit SC DAILY [facility] Last Admin: 11/24/16 09:28 Dose: 15 unit Ondansetron HCl (Zofran Inj) 4 mg IVP Q6H PRN PRN Reason: Nausea/Vomiting Last Admin: 11/28/16 12:06 Dose: 4 mg Pantoprazole Sodium (Protonix Ec Tab) 40 mg PO BID [facility] Last Admin: 11/30/16 10:24 Dose: 40 mg Saccharomyces Boulardii (Florastor) 250 mg PO BID [facility] Last Admin: 11/30/16 10:28 Dose: 250 mg Sertraline HCl (Zoloft) 50 mg PO DAILY [facility] Last Admin: 11/30/16 10:23 Dose: 50 mg Zolpidem Tartrate (Ambien) 5 mg PO HS PRN PRN Reason: Insomnia - Labs Labs: 11/29/16 05:59 11/29/16 05:59 PT 13.7 SECONDS (9.7-12.2) H 11/29/16 04:00 INR 1.2 11/29/16 04:00 APTT 41 SECONDS (21-34) H D 11/29/16 04:00 - Constitutional Appears: No Acute Distress - Head Exam Head Exam: ATRAUMATIC, NORMAL INSPECTION, NORMOCEPHALIC - Eye Exam Eye Exam: EOMI, Normal appearance, PERRL Pupil Exam: NORMAL ACCOMODATION, PERRL - ENT Exam ENT Exam: Mucous Membranes Moist, Normal Exam - Neck Exam Neck Exam: Full ROM, Normal Inspection. absent: Lymphadenopathy - Respiratory Exam Respiratory Exam: Clear to Ausculation Bilateral, NORMAL BREATHING PATTERN - Cardiovascular Exam Cardiovascular Exam: REGULAR RHYTHM, +S1, +S2. absent: Murmur - GI/Abdominal Exam GI & Abdominal Exam: Soft, Tenderness. absent: Distended, Firm, Guarding, Rigid Additional comments: Incision C/D/I - Extremities Exam Extremities Exam: Full ROM - Back Exam Back Exam: NORMAL INSPECTION - Neurological Exam Neurological Exam: Alert, Awake, CN II-XII Intact, Oriented x3 - Psychiatric Exam Psychiatric exam: Normal Affect, Normal Mood - Skin Skin Exam: Dry, Intact, Normal Color, Warm Assessment and Plan - Assessment and Plan (Free Text) Assessment: 66M s/p exploratory laparotomy POD4 ,w/ findings of unresectable rectosigmoid mass -Patient will need portacath placement, currently agreeing for placement. Patient states he spoke with Dr. Garcia and now he wants to go through with chemotherapy. -Regular diet -Protonix BID -Monitor vitals -c/w analgesic -C/w anti-emetic -Further recs per Dr. Amin
--- NOTE | 2016-11-30 17:02 | CP.PCM.PN ---
Subjective - Date & Time of Evaluation Date of Evaluation: 11/30/16 Time of Evaluation: 17:00 - Subjective Subjective: Has diarrhea Objective - Vital Signs/Intake and Output Vital Signs (last 24 hours): Temp Pulse Resp BP Pulse Ox 98.6 F 86 20 123/67 93 L 11/30/16 16:00 11/30/16 16:00 11/30/16 16:00 11/30/16 16:00 11/30/16 16:00 - Medications Medications: Current Medications Dextrose (Dextrose 50% Inj) 0 ml IV STAT PRN; Protocol PRN Reason: Hyglycemia Protocol Last Admin: 11/18/16 06:21 Dose: 50 ml Enoxaparin Sodium (Lovenox) 90 mg SC Q12 [facility] Last Admin: 11/30/16 10:24 Dose: 90 mg Furosemide (Lasix) 20 mg IVP Q12 [facility] Last Admin: 11/30/16 10:24 Dose: 20 mg Gabapentin (Neurontin) 100 mg PO TID [facility] Last Admin: 11/30/16 13:48 Dose: 100 mg Hydromorphone HCl (Dilaudid) 0.5 mg IVP Q4H PRN PRN Reason: Pain, moderate (4-7) Last Admin: 11/26/16 23:28 Dose: 0.5 mg Hydroxyzine HCl (Atarax) 25 mg PO Q6 PRN PRN Reason: Anxiety Ceftriaxone Sodium 2 gm/ (Sodium Chloride) 100 mls @ 200 mls/hr IVPB Q24H [facility] Last Admin: 11/30/16 12:22 Dose: 200 mls/hr Insulin Aspart (Novolog) 0 unit SC ACHS [facility] PRN Reason: Protocol Last Admin: 11/30/16 16:39 Dose: 4 unit Insulin Detemir (Levemir) 15 unit SC DAILY [facility] Last Admin: 11/24/16 09:28 Dose: 15 unit Ondansetron HCl (Zofran Inj) 4 mg IVP Q6H PRN PRN Reason: Nausea/Vomiting Last Admin: 11/28/16 12:06 Dose: 4 mg Pantoprazole Sodium (Protonix Ec Tab) 40 mg PO BID [facility] Last Admin: 11/30/16 10:24 Dose: 40 mg Saccharomyces Boulardii (Florastor) 250 mg PO BID [facility] Last Admin: 07/29/17 10:28 Dose: 250 mg Sertraline HCl (Zoloft) 50 mg PO DAILY [facility] Last Admin: 11/30/16 10:23 Dose: 50 mg Zolpidem Tartrate (Ambien) 5 mg PO HS PRN PRN Reason: Insomnia - Labs Labs: 11/29/16 05:59 11/29/16 05:59 PT 13.7 SECONDS (9.7-12.2) H 11/29/16 04:00 INR 1.2 11/29/16 04:00 APTT 41 SECONDS (21-34) H D 11/29/16 04:00 - Head Exam Head Exam: ATRAUMATIC - Eye Exam Eye Exam: Normal appearance - ENT Exam ENT Exam: Mucous Membranes Dry - Respiratory Exam Respiratory Exam: NORMAL BREATHING PATTERN - Cardiovascular Exam Cardiovascular Exam: +S1, +S2 - GI/Abdominal Exam GI & Abdominal Exam: Normal Bowel Sounds - Extremities Exam Extremities Exam: Pedal Edema Assessment and Plan (1) Colon cancer Assessment & Plan: with bladder involvement patient considering neoadjuvant chemotherapy Status: Acute (2) DVT (deep venous thrombosis) Assessment & Plan: therapeutic anticoagulation Status: Acute (3) Anemia Assessment & Plan: chronic disease Status: Acute (4) Pancreatic lesion Assessment & Plan: negative for maligancy by biospy Status: Acute
[2016-11-30 18:38] LABS: BASO % 0.2 % (0.0-2.0); EOS # 0.1 K/uL (0.0-0.7); EOS % 0.6 % (0.0-4.0); HEMATOCRIT 25.9 % (35.0-51.0); LYMPH # 1.4 K/uL (1.0-4.3); LYMPH % 14.6 % (20.0-40.0); MEAN CORPUSCULAR HEMOGLOBIN 24.1 pg (27.0-31.0); MEAN CORPUSCULAR HGB CONC 32.5 g/dL (33.0-37.0); MEAN PLATELET VOLUME 8.1 fL (7.2-11.7); MONO # 0.8 K/uL (0.0-0.8); MONO % 7.9 % (0.0-10.0); RED CELL DISTRIBUTION WIDTH 26.1 % (11.5-14.5); WHITE BLOOD COUNT 9.7 K/uL (4.8-10.8)
[2016-11-30 18:46] LABS: CHLORIDE 100 mmol/L (98-107); SODIUM 134 mmol/L (132-148)
[2016-11-30 18:47] LABS: POTASSIUM 3.3 mmol/L (3.6-5.2)
[2016-11-30 18:48] LABS: GFR AFRICAN-AMERICAN > 60
[2016-11-30 18:49] LABS: ALB/GLOB RATIO 0.6 (1.0-2.1); ALKALINE PHOSPHATASE 164 U/L (38-126); ALT/SGPT 27 U/L (21-72); AST/SGOT 17 U/L (17-59); BILIRUBIN,TOTAL 0.4 mg/dL (0.2-1.3); BLOOD UREA NITROGEN 20 mg/dL (9-20); CARBON DIOXIDE 25 mmol/L (22-30); GLUCOSE,RANDOM 198 mg/dL (75-110); PHOSPHOROUS 2.7 mg/dL (2.5-4.5); TOTAL PROTEIN 4.3 g/dL (6.3-8.3)
[2016-11-30 18:50] LABS: CALCIUM 6.8 mg/dl (8.6-10.4); MAGNESIUM 1.5 mg/dL (1.6-2.3)
[2016-11-30] MEDS ORDERED: Potassium Chloride 20 mEq ER Tab PO STA (19:26)
--- NOTE | 2016-11-30 19:49 | CP.PCM.PN ---
<Aliza Andujar E - Last Filed: 11/30/16 20:15> Subjective - Date & Time of Evaluation Date of Evaluation: 11/30/16 Time of Evaluation: 08:55 - Subjective Subjective: Medicine Note (PGY 1): Dr. Bobo Harris Patient was seen and examined at bedside. Patient was resting comfortably in bed in no acute distress. Patient had no acute issues overnight. Patient still admits to diarrhea but denies chest pain, sob, abdominal pain, nausea, vomiting , fever and chills. Objective - Vital Signs/Intake and Output Vital Signs (last 24 hours): Temp Pulse Resp BP Pulse Ox 98.6 F 86 20 123/67 93 L 11/30/16 16:00 11/30/16 16:00 11/30/16 16:00 11/30/16 16:00 11/30/16 16:00 Intake and Output: 11/30/16 12/01/16 18:59 06:59 Intake Total 240 Output Total 600 Balance -360 - Medications Medications: Current Medications Dextrose (Dextrose 50% Inj) 0 ml IV STAT PRN; Protocol PRN Reason: Hyglycemia Protocol Last Admin: 11/18/16 06:21 Dose: 50 ml Enoxaparin Sodium (Lovenox) 90 mg SC Q12 DOREEN Last Admin: 11/30/16 10:24 Dose: 90 mg Furosemide (Lasix) 20 mg IVP Q12 DOREEN Last Admin: 11/30/16 10:24 Dose: 20 mg Gabapentin (Neurontin) 100 mg PO TID [facility] Last Admin: 11/30/16 17:29 Dose: 100 mg Hydromorphone HCl (Dilaudid) 0.5 mg IVP Q4H PRN PRN Reason: Pain, moderate (4-7) Last Admin: 11/26/16 23:28 Dose: 0.5 mg Hydroxyzine HCl (Atarax) 25 mg PO Q6 PRN PRN Reason: Anxiety Ceftriaxone Sodium 2 gm/ (Sodium Chloride) 100 mls @ 200 mls/hr IVPB Q24H [facility] Last Admin: 11/30/16 12:22 Dose: 200 mls/hr Insulin Aspart (Novolog) 0 unit SC ACHS DOREEN PRN Reason: Protocol Last Admin: 11/30/16 16:39 Dose: 4 unit Insulin Detemir (Levemir) 15 unit SC DAILY [facility] [place] Last Admin: 11/24/16 09:28 Dose: 15 unit Ondansetron HCl (Zofran Inj) 4 mg IVP Q6H PRN PRN Reason: Nausea/Vomiting Last Admin: 11/28/16 12:06 Dose: 4 mg Pantoprazole Sodium (Protonix Ec Tab) 40 mg PO BID [facility] [place] Last Admin: 11/30/16 17:29 Dose: 40 mg Saccharomyces Boulardii (Florastor) 250 mg PO BID [facility] [place] Last Admin: 11/30/16 17:29 Dose: 250 mg Sertraline HCl (Zoloft) 50 mg PO DAILY [facility] [place] Last Admin: 11/30/16 10:23 Dose: 50 mg Zolpidem Tartrate (Ambien) 5 mg PO HS PRN PRN Reason: Insomnia - Labs Labs: 11/30/16 18:29 11/30/16 18:29 PT 13.7 SECONDS (9.7-12.2) H 11/29/16 04:00 INR 1.2 11/29/16 04:00 APTT 41 SECONDS (21-34) H D 11/29/16 04:00 - Constitutional Appears: No Acute Distress - Head Exam Head Exam: ATRAUMATIC - Eye Exam Eye Exam: EOMI, Normal appearance - ENT Exam ENT Exam: Mucous Membranes Moist, Normal Exam - Respiratory Exam Respiratory Exam: Clear to Ausculation Bilateral, NORMAL BREATHING PATTERN - Cardiovascular Exam Cardiovascular Exam: REGULAR RHYTHM, +S2 - GI/Abdominal Exam GI & Abdominal Exam: Hyperactive Bowel Sounds, Normal Bowel Sounds - Extremities Exam Extremities Exam: Pedal Edema - Neurological Exam Neurological Exam: Alert, Awake, Oriented x3 - Psychiatric Exam Psychiatric exam: Depressed, Normal Affect - Skin Skin Exam: Dry, Normal Color, Warm Assessment and Plan (1) Chronic diarrhea Assessment & Plan: Ongoing Secondary to 2/2 10 cm Sigmoid Mass 11/30/16: POD # 4: As per conversation with Dr. [place] Harris on 11/29/16, patient has decided to be DNR/DNI 11/29/16: POD #3. Patient is still undecided concerning further management. If he decides to proceed then he will need a Chemo Port placed. He has signed DNR/ DNI. I discussed patient's decision concerning further treatment with Dr. Willow Garcia on the night of 11/28/1611/28: s/p exploratory laparotomy POD2, w/ findings of unresectable rectosigmoid mass. Patient stated today he does not want the chemoport, he said he wants time to think about it. Patient appears tired and he does not want to make sudden decisions. No morning labs, blood draw was difficult this morning due to poor vein access. 11/27: s/p exploratory laparotomy POD1, w/ findings of unresectable rectosigmoid mass. Per surgery note, patient will need a portacath placement, time and date to be determined. Will stop heparin drip (tx for RUE deep vein thrombosis) 4 hours prior to portacath placement procedure. 11/26: Per rn surgical, the surgery today to resect patient's sigmoid mass was halted after it was determined the mass was too large/firm for removal. The patient will be treated with a neoadjuvant with hopes of shrinking the size of the tumor with possible surgery for removal at a later date. Patient was sent to ICU post OR for monitoring. 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 Due to lovenox longer half life, therapeutic lovenox was discontinued and heparin was started. Heparin 8000u iv bolus was given and heparin drip was started at 18u/kg/hr. This drip will be stopped at exactly 5am, 4 hours before surgery. 11/25: Cardiology consulted for risk stratification for procedure. Stress test was normal. ECHO results pending. 11/25: c.diff negative. f/u ova and parasite. 11/25: per dr Garcia, megace was discontinued as it can cause blood clots. megace was originally ordered to stimulate appetite. 11/22: Pt advanced to solid food diet today. Surgery planning for OR 11/26. Added marinol to increased appetite per surgery request. 11/21: Pt s/p cystoscopy today. Patient found to have invasion to dome of urinary bladder. Surgery to plan for surgery some time next week 11/21: GI has signed off. 11/21: Per GI, Abdominal U/S obtained to rule out SV thrombosis given presence of gastroesopahgeal varices seen on endoscopic examination -> Abdominal U/S: 1. Hepatocellular disease without focal hepatic mass. 2. Patent portal venous system including splenic vein. 3. Cholelithiasis. No sonographic evidence of acute cholecystitis. 4. Cystic mass in the head of the pancreas. Remainder the pancreas is not visualized. 11/21: PICC placed today by IR DR Armando. 11/20: Dr Benji Jon will do cystoscopy tomorrow as surgery believes a cystoscopy could aid in surgical planning, surgery concerned about air in bladder and the way the mass abuts the bladder as seen on CT. Patient will be npo after midnight. 11/20: s/p upper EUS: "LA grade C erosive esophagitis. 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 75mm x 65mm psedocyst seen in pancreatic body, fine needle aspiration for fluid performed. Varices were visualized endosonographically in fundus of stomach". Will f/u cystology and CEA levels. 11/20: s/p venous duplex of upper extremities: "right: acute thrombosis of right subclavian, axillary and brachial veins with severe reduction of venous return. left: acute thrombosis of left cephatlic vein with severe reduction of venous return". Therapeutic lovenox started -> 90mg q12 sc. 11/20: s/p venous duplex of lower extremeties: negative 11/20: PICC line placed today. Magnesium was low, repleted. 11/19: GI to perform EUS tomorrow. Advanced diet to liquid - will advance as tolerated. B/l upper and lower extremity duplex scans were ordered today. 11/18: Patient is s/p EGD/Colonoscopy. A 10cm partially obstructing sigmoid mass was seen and biopsied. Multiple polyps were seen and resected. Heme/Onc, Dr Garcia has been consulted, we will follow up with his recommendations. 11/17: Still having the diarrhea. The C diff studies are pending. He will need to be on IV Flagyl. 11/16: Pending CT of abd / pelvis results. The appears to be a possible pancreatic area mass as well as colonic mass. The night team has already ordered tumor markers as well as stool studies. Abx were also ordered and the WBC decreased. CT chest abdomen and pelvis findings as noted: suspected sigmoid and proximal rectum mass lesion without evidence of high grade bowel obstruction; suspected abscess formation; cystic mass lesion noted at pancreas with surrounding fat stranding of the pancreatic tail; large gallstones without evidence of acute cholecystitis GI consult (Dr. Srivastava)---> Help appreciated General Surgery Consult (Dr. Amin)----> Help appreciated Urology Consult ( Dr. Jon)----> Help appreciated * All consulted due to unofficial read of CT Scan of chest/abdomen/pelvis: Intra -abdominal abscess/malignancy and bladder wall thickening * Still pending official radiologist report Potassium chloride/dextrose/sodium cl @ 100ml/hr iv q10 Stool culture negative for salmonella, shigella, campylobacter Stool leukocytes negative Ova and parasites not seen C. diffi toxin AB negative Status: Acute (2) Syncope Assessment & Plan: Resolved Possibly secondary to chronic diarrhea Status: Acute (3) Bacteremia Assessment & Plan: Gram Negative blood culture: 11/30/17: As per ID, Repeat blood culture was negative, Primaxin and Flagyl was discontinued (11/29/16). Ceftriaxone 2 gm IV Q24H for 14 days starting 11/29/16 11/29/16: E. coli in blood culture on 11/15/16. Repeat blood culture on 11/23/16 was finalized as negative. I will speak with ID Dr. Burns concerning how much longer we need to continue the Primaxin and Flagyl 11/27: wbc trending down. afebrile. will continue primaxin and flagyl and monitor bands and wbc. Blood cultures negative after 3 days. 11/26: Patient in ICU for monitoring post OR, Bands 12 today, will monitor. 11/25: Blood cultures are negative after [address] Burns, con't tx for minimum of 14 days; Primaxin and Flagyl both started on 11/17. 11/19: HIV screen negative, Hep panel negative. Bands 26 today. 11/18: HIV 1&2 antibodies, Hep panel were ordered today. ID has been consulted, Dr Burns, we will follow his recommendations. 11/17: Changed to IV Primaxin 500mg IV Q6 Follow cultures. Currently blood pressure and HR stable. Nonfebrile. Continue with the IVF, monitor lowe outputs Status: Acute (4) Urinary tract infection Assessment & Plan: Resolved Patient was treated with Fluconazole for budding yeast found in urine Status: Acute (5) Metabolic acidosis, increased anion gap Assessment & Plan: Resolved Status: Acute (6) Hypertension Assessment & Plan: (11/27-11/28/16) Elevated BP, Max: 162/60 Possibly secondary to the LR s/p surgery The LR was stopped on 11/28/16. Patient was started on Lasix 20 mg IV Q12H on 11/28/16 as this will also help with the peripheral edema Status: Chronic (7) Uncontrolled diabetes mellitus Assessment & Plan: Recent HgbA1C: 9.0 (09/28/16) Accuchecks Aspart ISS Levemir 15 units SC HS---> restarted (11/30/16) as patient is now eating Hold glipizide Status: Chronic (8) Esophageal abrasion Assessment & Plan: 11/18: Per endoscopy report * Ulcerated mucosa in the lower third of the esophagus was seen and biopsied. Medication: * Patient is on Protonix 40 mg PO BID. Status: Acute (9) Pancreatic lesion Assessment & Plan: GI outpatient follow-up 11/26: Pancreatic cyst FNA negative for malignant cells per cytology report. 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 Lipase level and lipid panel was ordered today. 11/17: CA 19-9 wnl Status: Acute (10) Cholelithiasis Assessment & Plan: GI outpatient follow-up 11/18: CT abd/pelvis shows large gallstones without evidence of acute cholecystitis. Status: Acute (11) Hypocalcemia Assessment & Plan: Corrected for albumin, the calcium is normal Status: Acute (12) Acute deep vein thrombosis (DVT) of right upper extremity Assessment & Plan: 11/30/16: Continue therapeutic Lovenox at 90 mg SC Q12H 11/29: Heparin Drip was discontinued on 11/28/16 as PTT could not be measured secondary to inability to draw blood from edematous arms and could not draw blood from left arm PICC for the PTT level due to the Heprin Drip being infused through the PICC. Therefore patient was restarted on therapeutic Lovenox at 90 mg SC Q12H 11/27: Heparin drip restarted at 18u/kg/hr. Heparin bolus 8,000u given prior to start of drip. 11/26: Per surgery, plan is to restart anticoagulant tomorrow morning Status: Acute (13) Anemia of chronic disease Assessment & Plan: 11/30:H/H : 8.4/25.9 11/29: HgB/Hct is 9.0/28.0 11/27: H/H stable, will continue to monitor. 11/26: After discussing with Heme/Onc Dr Garcia, since Ferritin is normal ferrlecit will not provide much benefit, will discontinue 11/25: Will start Ferrlecit 125mg iv daily after surgical procedure 11/25: Hgb stable at 8.6. Status: Acute (14) Abnormal cardiovascular stress test Assessment & Plan: Cardiology outpatient follow-up 11/25: Nuclear Stress Test: Defect in mid-anteroseptal wall, defect in basal inferoseptal wall, fixed apical defect old VT, small defect inferior wall 11/25: ECHO: left ventricle systolic function is normal. EF is 50-55%. Status: Acute (15) Prophylactic measure Assessment & Plan: Protonix 40 mg PO BID Lovenox 90mg IV q12H Florastor PO BID Ambien 5 mg PO HS Glucerna Shake 3 times a day help increase his protein level Physical Therapy started on 11/29/16 Status: Acute <Bobo Harris - Last Filed: 12/01/16 09:18> Objective - Vital Signs/Intake and Output Vital Signs (last 24 hours): Temp Pulse Resp BP Pulse Ox 98.0 F 92 H 18 109/85 98 12/01/16 08:00 12/01/16 08:00 12/01/16 08:00 12/01/16 08:00 12/01/16 08:00 Intake and Output: 12/01/16 12/01/16 06:59 18:59 Intake Total 400 250 Output Total 1300 Balance -900 250 - Medications Medications: Current Medications Dextrose (Dextrose 50% Inj) 0 ml IV STAT PRN; Protocol PRN Reason: Hyglycemia Protocol Last Admin: 11/18/16 06:21 Dose: 50 ml Enoxaparin Sodium (Lovenox) 90 mg SC Q12 DOREEN Last Admin: 11/30/16 22:23 Dose: 90 mg Furosemide (Lasix) 20 mg IVP Q12 DOREEN Last Admin: 11/30/16 22:23 Dose: 20 mg Gabapentin (Neurontin) 100 mg PO TID [facility] Last Admin: 11/30/16 17:29 Dose: 100 mg Hydromorphone HCl (Dilaudid) 0.5 mg IVP Q4H PRN PRN Reason: Pain, moderate (4-7) Last Admin: 11/26/16 23:28 Dose: 0.5 mg Hydroxyzine HCl (Atarax) 25 mg PO Q6 PRN PRN Reason: Anxiety Ceftriaxone Sodium 2 gm/ (Sodium Chloride) 100 mls @ 200 mls/hr IVPB Q24H [facility] [place] Last Admin: 11/30/16 12:22 Dose: 200 mls/hr Insulin Aspart (Novolog) 0 unit SC ACHS DOREEN PRN Reason: Protocol Last Admin: 12/01/16 08:19 Dose: 4 unit Insulin Detemir (Levemir) 15 unit SC DAILY [facility] [place] Last Admin: 11/24/16 09:28 Dose: 15 unit Ondansetron HCl (Zofran Inj) 4 mg IVP Q6H PRN PRN Reason: Nausea/Vomiting Last Admin: 11/28/16 12:06 Dose: 4 mg Pantoprazole Sodium (Protonix Ec Tab) 40 mg PO BID [facility] [place] Last Admin: 11/30/16 17:29 Dose: 40 mg Saccharomyces Boulardii (Florastor) 250 mg PO BID [facility] [place] Last Admin: 11/30/16 17:29 Dose: 250 mg Sertraline HCl (Zoloft) 50 mg PO DAILY [facility] [place] Last Admin: 11/30/16 10:23 Dose: 50 mg Zolpidem Tartrate (Ambien) 5 mg PO HS PRN PRN Reason: Insomnia - Labs Labs: 12/01/16 06:12 12/01/16 06:12 PT 13.7 SECONDS (9.7-12.2) H 11/29/16 04:00 INR 1.2 11/29/16 04:00 APTT 41 SECONDS (21-34) H D 11/29/16 04:00 Attending/Attestation - Attestation I have personally seen and examined this patient.: Yes I have fully participated in the care of the patient.: Yes I have reviewed all pertinent clinical information, including history, physical exam and plan: Yes Notes (Text): 12/01/16 09:18 Patient was seen and examined with the Resident on 11/30/16. Exam/Assessment and Plan were gone over with the Resident. Bobo Harris D.O.
--- NOTE | 2016-12-01 01:48 | CP.PCM.PN ---
<Jose Coffman - Last Filed: 12/01/16 01:44> Subjective - Date & Time of Evaluation Date of Evaluation: 12/01/16 Time of Evaluation: 06:20 - Subjective Subjective: PGY-[address] Bobo Harris's Medicine Service: Patient was seen in ICU lying comfortably in bed on his phone. He c/o of diarrhea which he says started this morning. The rest of the ROS prompts were negative. He denied cp, sob, upper extremity pain, n/v/d/c, abd pain. Objective - Vital Signs/Intake and Output Vital Signs (last 24 hours): Temp Pulse Resp BP Pulse Ox 98.4 F 91 H 18 114/64 96 11/30/16 20:00 11/30/16 20:00 11/30/16 20:00 11/30/16 22:23 11/30/16 20:00 Intake and Output: 11/30/16 12/01/16 18:59 06:59 Intake Total 240 Output Total 600 Balance -360 - Medications Medications: Current Medications Dextrose (Dextrose 50% Inj) 0 ml IV STAT PRN; Protocol PRN Reason: Hyglycemia Protocol Last Admin: 11/18/16 06:21 Dose: 50 ml Enoxaparin Sodium (Lovenox) 90 mg SC Q12 [facility] Last Admin: 11/30/16 22:23 Dose: 90 mg Furosemide (Lasix) 20 mg IVP Q12 [facility] Last Admin: 11/30/16 22:23 Dose: 20 mg Gabapentin (Neurontin) 100 mg PO TID [facility] Last Admin: 11/30/16 17:29 Dose: 100 mg Hydromorphone HCl (Dilaudid) 0.5 mg IVP Q4H PRN PRN Reason: Pain, moderate (4-7) Last Admin: 11/26/16 23:28 Dose: 0.5 mg Hydroxyzine HCl (Atarax) 25 mg PO Q6 PRN PRN Reason: Anxiety Ceftriaxone Sodium 2 gm/ (Sodium Chloride) 100 mls @ 200 mls/hr IVPB Q24H [facility] Last Admin: 11/30/16 12:22 Dose: 200 mls/hr Insulin Aspart (Novolog) 0 unit SC ACHS [facility] PRN Reason: Protocol Last Admin: 11/30/16 22:13 Dose: Not Given Insulin Detemir (Levemir) 15 unit SC DAILY [facility] Last Admin: 11/24/16 09:28 Dose: 15 unit Ondansetron HCl (Zofran Inj) 4 mg IVP Q6H PRN PRN Reason: Nausea/Vomiting Last Admin: 11/28/16 12:06 Dose: 4 mg Pantoprazole Sodium (Protonix Ec Tab) 40 mg PO BID [facility] Last Admin: 11/30/16 17:29 Dose: 40 mg Saccharomyces Boulardii (Florastor) 250 mg PO BID [facility] Last Admin: 11/30/16 17:29 Dose: 250 mg Sertraline HCl (Zoloft) 50 mg PO DAILY [facility] Last Admin: 11/30/16 10:23 Dose: 50 mg Zolpidem Tartrate (Ambien) 5 mg PO HS PRN PRN Reason: Insomnia - Labs Labs: 11/30/16 18:29 11/30/16 18:29 PT 13.7 SECONDS (9.7-12.2) H 11/29/16 04:00 INR 1.2 11/29/16 04:00 APTT 41 SECONDS (21-34) H D 11/29/16 04:00 - Constitutional Appears: No Acute Distress - Head Exam Head Exam: NORMAL INSPECTION - Eye Exam Eye Exam: Normal appearance - ENT Exam ENT Exam: Mucous Membranes Moist - Neck Exam Neck Exam: Normal Inspection - Respiratory Exam Respiratory Exam: Clear to Ausculation Bilateral, NORMAL BREATHING PATTERN - Cardiovascular Exam Cardiovascular Exam: REGULAR RHYTHM, +S1, +S2. absent: Murmur - GI/Abdominal Exam GI & Abdominal Exam: Soft, Tenderness, Normal Bowel Sounds - Rectal Exam Rectal Exam: Deferred - Extremities Exam Extremities Exam: Pedal Edema Additional comments: 2+ pitting edema b/l 2+ pitting edema right arm - Neurological Exam Neurological Exam: Alert, Awake - Psychiatric Exam Psychiatric exam: Normal Affect, Normal Mood - Skin Skin Exam: Dry, Intact, Normal Color, Warm Additional comments: ecchymosis 4cm diameter right forearm Assessment and Plan - Assessment and Plan (Free Text) Assessment: (1) Chronic diarrhea Assessment & Plan: Ongoing Secondary to 2/2 10 cm Sigmoid Mass 12/01/16: POD #5. Potassium was low, repleted with Kdur 40meq. 11/30/16: POD # 4: As per conversation with Dr. [place] Harris on 11/29/16, patient has decided to be DNR/DNI 11/29/16: POD #3. Patient is still undecided concerning further management. If he decides to proceed then he will need a Chemo Port placed. He has signed DNR/ DNI. I discussed patient's decision concerning further treatment with Dr. Willow Garcia on the night of 11/28/1611/28: s/p exploratory laparotomy POD2, w/ findings of unresectable rectosigmoid mass. Patient stated today he does not want the chemoport, he said he wants time to think about it. Patient appears tired and he does not want to make sudden decisions. No morning labs, blood draw was difficult this morning due to poor vein access. 11/27: s/p exploratory laparotomy POD1, w/ findings of unresectable rectosigmoid mass. Per surgery note, patient will need a portacath placement, time and date to be determined. Will stop heparin drip (tx for RUE deep vein thrombosis) 4 hours prior to portacath placement procedure. 11/26: Per vice president compliance, the surgery today to resect patient's sigmoid mass was halted after it was determined the mass was too large/firm for removal. The patient will be treated with a neoadjuvant with hopes of shrinking the size of the tumor with possible surgery for removal at a later date. Patient was sent to ICU post OR for monitoring. 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 Due to lovenox longer half life, therapeutic lovenox was discontinued and heparin was started. Heparin 8000u iv bolus was given and heparin drip was started at 18u/kg/hr. This drip will be stopped at exactly 5am, 4 hours before surgery. 11/25: Cardiology consulted for risk stratification for procedure. Stress test was normal. ECHO results pending. 11/25: c.diff negative. f/u ova and parasite. 11/25: per dr Garcia, megace was discontinued as it can cause blood clots. megace was originally ordered to stimulate appetite. 11/22: Pt advanced to solid food diet today. Surgery planning for OR 11/26. Added marinol to increased appetite per surgery request. 11/21: Pt s/p cystoscopy today. Patient found to have invasion to dome of urinary bladder. Surgery to plan for surgery some time next week 11/21: GI has signed off. 11/21: Per GI, Abdominal U/S obtained to rule out SV thrombosis given presence of gastroesopahgeal varices seen on endoscopic examination -> Abdominal U/S: 1. Hepatocellular disease without focal hepatic mass. 2. Patent portal venous system including splenic vein. 3. Cholelithiasis. No sonographic evidence of acute cholecystitis. 4. Cystic mass in the head of the pancreas. Remainder the pancreas is not visualized. 11/21: PICC placed today by IR DR Armando. 11/20: Dr Benji Jon will do cystoscopy tomorrow as surgery believes a cystoscopy could aid in surgical planning, surgery concerned about air in bladder and the way the mass abuts the bladder as seen on CT. Patient will be npo after midnight. 11/20: s/p upper EUS: "LA grade C erosive esophagitis. 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 75mm x 65mm psedocyst seen in pancreatic body, fine needle aspiration for fluid performed. Varices were visualized endosonographically in fundus of stomach". Will f/u cystology and CEA levels. 11/20: s/p venous duplex of upper extremities: "right: acute thrombosis of right subclavian, axillary and brachial veins with severe reduction of venous return. left: acute thrombosis of left cephatlic vein with severe reduction of venous return". Therapeutic lovenox started -> 90mg q12 sc. 11/20: s/p venous duplex of lower extremeties: negative 11/20: PICC line placed today. Magnesium was low, repleted. 11/19: GI to perform EUS tomorrow. Advanced diet to liquid - will advance as tolerated. B/l upper and lower extremity duplex scans were ordered today. 11/18: Patient is s/p EGD/Colonoscopy. A 10cm partially obstructing sigmoid mass was seen and biopsied. Multiple polyps were seen and resected. Heme/Onc, Dr Garcia has been consulted, we will follow up with his recommendations. 11/17: Still having the diarrhea. The C diff studies are pending. He will need to be on IV Flagyl. 11/16: Pending CT of abd / pelvis results. The appears to be a possible pancreatic area mass as well as colonic mass. The night team has already ordered tumor markers as well as stool studies. Abx were also ordered and the WBC decreased. CT chest abdomen and pelvis findings as noted: suspected sigmoid and proximal rectum mass lesion without evidence of high grade bowel obstruction; suspected abscess formation; cystic mass lesion noted at pancreas with surrounding fat stranding of the pancreatic tail; large gallstones without evidence of acute cholecystitis GI consult (Dr. Srivastava)---> Help appreciated General Surgery Consult (Dr. Amin)----> Help appreciated Urology Consult ( Dr. Jon)----> Help appreciated * All consulted due to unofficial read of CT Scan of chest/abdomen/pelvis: Intra -abdominal abscess/malignancy and bladder wall thickening * Still pending official radiologist report Potassium chloride/dextrose/sodium cl @ 100ml/hr iv q10 Stool culture negative for salmonella, shigella, campylobacter Stool leukocytes negative Ova and parasites not seen C. diffi toxin AB negative Status: Acute (2) Syncope Assessment & Plan: Resolved Possibly secondary to chronic diarrhea Status: Acute (3) Bacteremia Assessment & Plan: Gram Negative blood culture: 11/30/17: As per ID, Repeat blood culture was negative, Primaxin and Flagyl was discontinued (11/29/16). Ceftriaxone 2 gm IV Q24H for 14 days starting 11/29/16 11/29/16: E. coli in blood culture on 11/15/16. Repeat blood culture on 11/23/16 was finalized as negative. I will speak with ID Dr. Burns concerning how much longer we need to continue the Primaxin and Flagyl 11/27: wbc trending down. afebrile. will continue primaxin and flagyl and monitor bands and wbc. Blood cultures negative after 3 days. 11/26: Patient in ICU for monitoring post OR, Bands 12 today, will monitor. 11/25: Blood cultures are negative after [address] Burns, con't tx for minimum of 14 days; Primaxin and Flagyl both started on 11/17. 11/19: HIV screen negative, Hep panel negative. Bands 26 today. 11/18: HIV 1&2 antibodies, Hep panel were ordered today. ID has been consulted, Dr Burns, we will follow his recommendations. 11/17: Changed to IV Primaxin 500mg IV Q6 Follow cultures. Currently blood pressure and HR stable. Nonfebrile. Continue with the IVF, monitor lowe outputs Status: Acute (4) Urinary tract infection Assessment & Plan: Resolved Patient was treated with Fluconazole for budding yeast found in urine Status: Acute (5) Metabolic acidosis, increased anion gap Assessment & Plan: Resolved Status: Acute (6) Hypertension Assessment & Plan: (11/27-11/28/16) Elevated BP, Max: 162/60 Possibly secondary to the LR s/p surgery The LR was stopped on 11/28/16. Patient was started on Lasix 20 mg IV Q12H on 11/28/16 as this will also help with the peripheral edema Status: Chronic (7) Uncontrolled diabetes mellitus Assessment & Plan: Recent HgbA1C: 9.0 (09/28/16) Accuchecks Aspart ISS Levemir 15 units SC HS---> restarted (11/30/16) as patient is now eating Hold glipizide Status: Chronic (8) Esophageal abrasion Assessment & Plan: 11/18: Per endoscopy report * Ulcerated mucosa in the lower third of the esophagus was seen and biopsied. Medication: * Patient is on Protonix 40 mg PO BID. Status: Acute (9) Pancreatic lesion Assessment & Plan: GI outpatient follow-up 11/26: Pancreatic cyst FNA negative for malignant cells per cytology report. 11/25: Per quality assurance qa lab analyst, EUS performed on 11/20 sampled pancreatic cyst fluid with diagnostic studies ordered for ptf amylase and ptf CEA only 11/20: Upper EUS performed today: "75mm x 65mm psedocyst seen in pancreatic body , fine needle aspiration for fluid performed 11/18: CT abd/pelvis shows cystic mass lesion at pancreas with fat stranding of pacreatic tail. Lipase level and lipid panel was ordered today. 11/17: CA 19-9 wnl Status: Acute (10) Cholelithiasis Assessment & Plan: GI outpatient follow-up 11/18: CT abd/pelvis shows large gallstones without evidence of acute cholecystitis. Status: Acute (11) Hypocalcemia Assessment & Plan: Corrected for albumin, the calcium is normal Status: Acute (12) Acute deep vein thrombosis (DVT) of right upper extremity Assessment & Plan: 11/30/16: Continue therapeutic Lovenox at 90 mg SC Q12H 11/29: Heparin Drip was discontinued on 11/28/16 as PTT could not be measured secondary to inability to draw blood from edematous arms and could not draw blood from left arm PICC for the PTT level due to the Heprin Drip being infused through the PICC. Therefore patient was restarted on therapeutic Lovenox at 90 mg SC Q12H 11/27: Heparin drip restarted at 18u/kg/hr. Heparin bolus 8,000u given prior to start of drip. 11/26: Per surgery, plan is to restart anticoagulant tomorrow morning Status: Acute (13) Anemia of chronic disease Assessment & Plan: 11/30:H/H : 8.4/25.9 11/29: HgB/Hct is 9.0/28.0 11/27: H/H stable, will continue to monitor. 11/26: After discussing with Heme/Onc Dr Garcia, since Ferritin is normal ferrlecit will not provide much benefit, will discontinue 11/25: Will start Ferrlecit 125mg iv daily after surgical procedure 11/25: Hgb stable at 8.6. Status: Acute (14) Abnormal cardiovascular stress test Assessment & Plan: Cardiology outpatient follow-up 11/25: Nuclear Stress Test: Defect in mid-anteroseptal wall, defect in basal inferoseptal wall, fixed apical defect old ID, small defect inferior wall 11/25: ECHO: left ventricle systolic function is normal. EF is 50-55%. Status: Acute (15) Prophylactic measure Assessment & Plan: Protonix 40 mg PO BID Lovenox 90mg IV q12H Florastor PO BID Ambien 5 mg PO HS Glucerna Shake 3 times a day help increase his protein level Physical Therapy started on 11/29/16 Status: Acute <Bobo Harris - Last Filed: 12/01/16 10:12> Objective - Vital Signs/Intake and Output Vital Signs (last 24 hours): Temp Pulse Resp BP Pulse Ox 98.0 F 92 H 18 109/85 98 12/01/16 08:00 12/01/16 08:00 12/01/16 08:00 12/01/16 08:00 12/01/16 08:00 Intake and Output: 12/01/16 12/01/16 06:59 18:59 Intake Total 400 250 Output Total 1300 Balance -900 250 - Medications Medications: Current Medications Dextrose (Dextrose 50% Inj) 0 ml IV STAT PRN; Protocol PRN Reason: Hyglycemia Protocol Last Admin: 11/18/16 06:21 Dose: 50 ml Enoxaparin Sodium (Lovenox) 90 mg SC Q12 [facility] Last Admin: 11/30/16 22:23 Dose: 90 mg Furosemide (Lasix) 20 mg IVP Q12 [facility] Last Admin: 11/30/16 22:23 Dose: 20 mg Gabapentin (Neurontin) 100 mg PO TID [facility] Last Admin: 11/30/16 17:29 Dose: 100 mg Hydromorphone HCl (Dilaudid) 0.5 mg IVP Q4H PRN PRN Reason: Pain, moderate (4-7) Last Admin: 11/26/16 23:28 Dose: 0.5 mg Hydroxyzine HCl (Atarax) 25 mg PO Q6 PRN PRN Reason: Anxiety Ceftriaxone Sodium 2 gm/ (Sodium Chloride) 100 mls @ 200 mls/hr IVPB Q24H [facility] Last Admin: 11/30/16 12:22 Dose: 200 mls/hr Insulin Aspart (Novolog) 0 unit SC ACHS [facility] PRN Reason: Protocol Last Admin: 12/01/16 08:19 Dose: 4 unit Insulin Detemir (Levemir) 15 unit SC DAILY [facility] Last Admin: 11/24/16 09:28 Dose: 15 unit Ondansetron HCl (Zofran Inj) 4 mg IVP Q6H PRN PRN Reason: Nausea/Vomiting Last Admin: 11/28/16 12:06 Dose: 4 mg Pantoprazole Sodium (Protonix Ec Tab) 40 mg PO BID [facility] Last Admin: 11/30/16 17:29 Dose: 40 mg Saccharomyces Boulardii (Florastor) 250 mg PO BID [facility] Last Admin: 11/30/16 17:29 Dose: 250 mg Sertraline HCl (Zoloft) 50 mg PO DAILY [facility] Last Admin: 11/30/16 10:23 Dose: 50 mg Zolpidem Tartrate (Ambien) 5 mg PO HS PRN PRN Reason: Insomnia - Labs Labs: 12/01/16 06:12 12/01/16 06:12 PT 13.7 SECONDS (9.7-12.2) H 11/29/16 04:00 INR 1.2 11/29/16 04:00 APTT 41 SECONDS (21-34) H D 11/29/16 04:00 Attending/Attestation - Attestation I have personally seen and examined this patient.: Yes I have fully participated in the care of the patient.: Yes I have reviewed all pertinent clinical information, including history, physical exam and plan: Yes Notes (Text): 12/01/16 09:51 Patient was seen and examined at 9:30 AM 12/01/16 ICU Bed #7 with the help of [facility] Medical Student Tai Ruiz who translated French Exam: HEENT: unremarkable Cardio: NS1 and NS2, NO M/R/G Respiratory: CTA B/L, NO R/R/W GI: BSx4, Soft, Central Obesity, Liver and Spleen could not be palpated secondary to Central Obesity, NO rebound tenderness/guarding Extremities: Pulses are strong and equal, Capillary Refill is 2 seconds, NONpitting edema Bilateral UE with Right > Left, 2+ Pitting Edema Bilateral LE from feet to just inferior to the tibial tuberosities Neuro: CN II throug XII are grossly intact Assessments and Plans: -Rectal/Sigmoid Mass Abutting the Left Side of Bladder with Hx of Diarrhea Patient is DNR/DNI: he met with Palliative Care Nurse Breanne and HUGO is in front of chart Patient has decided to start Chemotherapy with Dr. Willow Garcia once his acute issues have resolved Medicine Team will have to arrange with Surgery Team the placement of Emeli Cath Patient would like Subacute Rehab: Medicine Team should speak with Marketing Intelligence Manager on 12/02/16 to help arrange this -Hx Syncope See above -E. coli Bacteremia Repeat Blood Culture 11/23/16 is finalized as negative As per ID Dr. Rosa Burns, patient to continue Cefriaxone through 12/13/16. Patient has Left Arm PICC in place -Hx UTI See above -Hx Metabolic Acidosis See above -Hx HTN Better controlled once Lasix 20 mg IV Q12H was started on 11/28/16 and this will also help with the peripheral edema -Hx DM Levemir 15 units SC HS was restarted night on 11/30/16 as patient was eating better. Adjust Levemir and add premeal insulin based on 24 hour accuchecks from 12/01/16 AM through 12/02/16 AM -Hx Ulcerated Esophagus Mucosa See above -Hx Pancreatic Cystic Mass See above -Hx Cholelithiasis See above -Hx Hypocalcemia See above -Hx Anemia Likely Secondary to Chronic Disease (Rectal/Sigmoid Mass) HgB/Hct stable at 8.3/25.7 -Hx Right Arm DVT Currently on Lovenox 90 mg SC Q12H Hold off on switching to Oral Anticoagulation until Port Cath can be arranged with Surgery Team -Hx Abnormal Stress Test See above -Major Depressive Disorder Likely secondary to his cancer diagnosis and multiple medical problems as documented above He was seen by Psychiatry Dr. Loredo Continue Zoloft, Hydroxyzine PRN Remeron and Trazadone which were ordered by Psychiatry were discontinued as patient had better and longer sleep on Ambien (patient explained that he only had 3 hours of sleep on Remeron and Trazadone compared to 6 hours or more with Ambien, which was continued) Bobo Harris D.O. 12/01/16 10:01
[2016-12-01 06:21] LABS: BASO % 0.2 % (0.0-2.0); EOS % 0.7 % (0.0-4.0); HEMATOCRIT 25.3 % (35.0-51.0); LYMPH # 1.1 K/uL (1.0-4.3); LYMPH % 15.4 % (20.0-40.0); MEAN CELL VOLUME 74.4 fL (80.0-94.0); MEAN CORPUSCULAR HEMOGLOBIN 24.3 pg (27.0-31.0); MEAN CORPUSCULAR HGB CONC 32.7 g/dL (33.0-37.0); MEAN PLATELET VOLUME 8.7 fL (7.2-11.7); MONO # 0.6 K/uL (0.0-0.8); NRBC % 0.1 % (0.0-2.0); WHITE BLOOD COUNT 7.2 K/uL (4.8-10.8)
[2016-12-01 06:28] LABS: CHLORIDE 99 mmol/L (98-107); POTASSIUM 3.7 mmol/L (3.6-5.2); SODIUM 134 mmol/L (132-148)
[2016-12-01 06:30] LABS: AST/SGOT 12 U/L (17-59); BILIRUBIN,TOTAL 0.6 mg/dL (0.2-1.3); CARBON DIOXIDE 26 mmol/L (22-30); GFR AFRICAN-AMERICAN > 60
[2016-12-01 06:31] LABS: ALB/GLOB RATIO 0.6 (1.0-2.1); ALKALINE PHOSPHATASE 132 U/L (38-126); ALT/SGPT 28 U/L (21-72); BLOOD UREA NITROGEN 17 mg/dL (9-20); CALCIUM 6.2 mg/dl (8.6-10.4); GLUCOSE,RANDOM 184 mg/dL (75-110); PHOSPHOROUS 2.8 mg/dL (2.5-4.5); TOTAL PROTEIN 4.1 g/dL (6.3-8.3)
[2016-12-01 06:32] LABS: MAGNESIUM 1.4 mg/dL (1.6-2.3)
[2016-12-01] MEDS: (Novolog) Insulin Aspart, Recombinant 100 u/ml 10 ml vial SC SCH ×4 (08:19→22:26)
[2016-12-01] MEDS: Insulin Detemir 100 units/ml Vial (Levemir) SC SCH (10:01)
[2016-12-01] MEDS: Enoxaparin 100 mg Syringe SC SCH ×2 (10:02→22:15)
[2016-12-01] MEDS: Pantoprazole 40 mg EC Tab PO SCH ×2 (10:03→17:14)
[2016-12-01] MEDS: Saccharomyces Boulardi 250 mg Cap PO SCH ×2 (10:03→17:14)
--- NOTE | 2016-12-01 11:28 | CP.PCM.PN ---
Subjective - Date & Time of Evaluation Date of Evaluation: 12/01/16 Time of Evaluation: 07:00 - Subjective Subjective: Patient seen and examined this morning. No complaints. Tolerating diet. Abdominal incision is clean/dry/intact, no erythema/discharge noted. Objective - Vital Signs/Intake and Output Vital Signs (last 24 hours): Temp Pulse Resp BP Pulse Ox 98.0 F 92 H 18 122/92 H 98 12/01/16 08:00 12/01/16 08:00 12/01/16 08:00 12/01/16 10:02 12/01/16 08:00 Intake and Output: 12/01/16 12/01/16 06:59 18:59 Intake Total 400 250 Output Total 1300 Balance -900 250 - Medications Medications: Current Medications Dextrose (Dextrose 50% Inj) 0 ml IV STAT PRN; Protocol PRN Reason: Hyglycemia Protocol Last Admin: 11/18/16 06:21 Dose: 50 ml Enoxaparin Sodium (Lovenox) 90 mg SC Q12 [facility] Last Admin: 12/01/16 10:02 Dose: 90 mg Furosemide (Lasix) 20 mg IVP Q12 [facility] Last Admin: 12/01/16 10:02 Dose: 20 mg Gabapentin (Neurontin) 100 mg PO TID [facility] Last Admin: 12/01/16 10:03 Dose: 100 mg Hydromorphone HCl (Dilaudid) 0.5 mg IVP Q4H PRN PRN Reason: Pain, moderate (4-7) Last Admin: 11/26/16 23:28 Dose: 0.5 mg Hydroxyzine HCl (Atarax) 25 mg PO Q6 PRN PRN Reason: Anxiety Ceftriaxone Sodium 2 gm/ (Sodium Chloride) 100 mls @ 200 mls/hr IVPB Q24H [facility] Last Admin: 11/30/16 12:22 Dose: 200 mls/hr Insulin Aspart (Novolog) 0 unit SC ACHS [facility] PRN Reason: Protocol Last Admin: 12/01/16 08:19 Dose: 4 unit Insulin Detemir (Levemir) 15 unit SC DAILY [facility] Last Admin: 12/01/16 10:01 Dose: 15 unit Ondansetron HCl (Zofran Inj) 4 mg IVP Q6H PRN PRN Reason: Nausea/Vomiting Last Admin: 11/28/16 12:06 Dose: 4 mg Pantoprazole Sodium (Protonix Ec Tab) 40 mg PO BID [facility] Last Admin: 12/01/16 10:03 Dose: 40 mg Saccharomyces Boulardii (Florastor) 250 mg PO BID [facility] Last Admin: 12/01/16 10:03 Dose: 250 mg Sertraline HCl (Zoloft) 50 mg PO DAILY [facility] Last Admin: 12/01/16 10:03 Dose: 50 mg Zolpidem Tartrate (Ambien) 5 mg PO HS PRN PRN Reason: Insomnia - Labs Labs: 12/01/16 06:12 12/01/16 06:12 PT 13.7 SECONDS (9.7-12.2) H 11/29/16 04:00 INR 1.2 11/29/16 04:00 APTT 41 SECONDS (21-34) H D 11/29/16 04:00 - Constitutional Appears: No Acute Distress - Head Exam Head Exam: NORMOCEPHALIC - Eye Exam Eye Exam: Normal appearance - ENT Exam ENT Exam: Mucous Membranes Moist - Cardiovascular Exam Cardiovascular Exam: +S1, +S2 - GI/Abdominal Exam GI & Abdominal Exam: Soft. absent: Tenderness - Neurological Exam Neurological Exam: Alert, Awake, Oriented x3 - Skin Skin Exam: Dry, Intact, Warm Assessment and Plan - Assessment and Plan (Free Text) Assessment: 66M s/p exploratory laparotomy POD5 ,w/ findings of unresectable rectosigmoid mass -Patient will need portacath placement, currently agreeing for placement. Patient states he spoke with Dr. Garcia and now he wants to go through with chemotherapy. -Will remove abdominal incision jody in POD#10 -Will sign off, please re-consult as needed, thank you. -Regular diet -Protonix BID -c/w analgesic -C/w anti-emetic -D/wr Dr. Amin
[2016-12-01] MEDS: cefTRIAXone 2 GM in Sodium Chloride 0.9% 100 ML IVPB SCH (12:18)
--- NOTE | 2016-12-01 17:57 | CP.PCM.PN ---
Subjective - Date & Time of Evaluation Date of Evaluation: 11/29/16 Time of Evaluation: 18:40 - Subjective Subjective: Feels weak Objective - Vital Signs/Intake and Output Vital Signs (last 24 hours): Temp Pulse Resp BP Pulse Ox 98.3 F 78 16 105/54 L 98 12/01/16 16:00 12/01/16 16:00 12/01/16 16:00 12/01/16 16:00 12/01/16 16:00 Intake and Output: 12/01/16 12/01/16 06:59 18:59 Intake Total 400 250 Output Total 1300 Balance -900 250 - Medications Medications: Current Medications Dextrose (Dextrose 50% Inj) 0 ml IV STAT PRN; Protocol PRN Reason: Hyglycemia Protocol Last Admin: 11/18/16 06:21 Dose: 50 ml Enoxaparin Sodium (Lovenox) 90 mg SC Q12 [facility] Last Admin: 12/01/16 10:02 Dose: 90 mg Furosemide (Lasix) 20 mg IVP Q12 [facility] Last Admin: 12/01/16 10:02 Dose: 20 mg Gabapentin (Neurontin) 100 mg PO TID [facility] Last Admin: 12/01/16 17:14 Dose: 100 mg Hydromorphone HCl (Dilaudid) 0.5 mg IVP Q4H PRN PRN Reason: Pain, moderate (4-7) Last Admin: 11/26/16 23:28 Dose: 0.5 mg Hydroxyzine HCl (Atarax) 25 mg PO Q6 PRN PRN Reason: Anxiety Ceftriaxone Sodium 2 gm/ (Sodium Chloride) 100 mls @ 200 mls/hr IVPB Q24H [facility] Last Admin: 12/01/16 12:18 Dose: 200 mls/hr Insulin Aspart (Novolog) 0 unit SC ACHS [facility] PRN Reason: Protocol Last Admin: 12/01/16 16:46 Dose: 4 unit Insulin Detemir (Levemir) 15 unit SC DAILY [facility] Last Admin: 12/01/16 10:01 Dose: 15 unit Ondansetron HCl (Zofran Inj) 4 mg IVP Q6H PRN PRN Reason: Nausea/Vomiting Last Admin: 11/28/16 12:06 Dose: 4 mg Pantoprazole Sodium (Protonix Ec Tab) 40 mg PO BID [facility] Last Admin: 12/01/16 17:14 Dose: 40 mg Saccharomyces Boulardii (Florastor) 250 mg PO BID [facility] Last Admin: 12/01/16 17:14 Dose: 250 mg Sertraline HCl (Zoloft) 50 mg PO DAILY [facility] Last Admin: 12/01/16 10:03 Dose: 50 mg Zolpidem Tartrate (Ambien) 5 mg PO HS PRN PRN Reason: Insomnia - Labs Labs: 12/01/16 06:12 12/01/16 06:12 PT 13.7 SECONDS (9.7-12.2) H 11/29/16 04:00 INR 1.2 11/29/16 04:00 APTT 41 SECONDS (21-34) H D 11/29/16 04:00 - Head Exam Head Exam: ATRAUMATIC - Eye Exam Eye Exam: Normal appearance - ENT Exam ENT Exam: Mucous Membranes Dry - Respiratory Exam Respiratory Exam: NORMAL BREATHING PATTERN - Cardiovascular Exam Cardiovascular Exam: +S1, +S2 - GI/Abdominal Exam GI & Abdominal Exam: Normal Bowel Sounds - Extremities Exam Extremities Exam: Pedal Edema - Neurological Exam Neurological Exam: Oriented x3 - Psychiatric Exam Psychiatric exam: Normal Affect, Normal Mood - Skin Skin Exam: Warm Assessment and Plan (1) Colon cancer Assessment & Plan: with bladder involvement pt considering neoadjuvant chemotherapy Status: Acute (2) DVT (deep venous thrombosis) Assessment & Plan: therapeutic anticoagulation Status: Acute (3) Anemia Assessment & Plan: chronic disease Status: Acute (4) Pancreatic lesion Assessment & Plan: biopsy negative for malignancy Status: Acute
--- NOTE | 2016-12-01 18:00 | CP.PCM.PN ---
Subjective - Date & Time of Evaluation Date of Evaluation: 12/01/16 Time of Evaluation: 17:25 - Subjective Subjective: No complaints. Objective - Vital Signs/Intake and Output Vital Signs (last 24 hours): Temp Pulse Resp BP Pulse Ox 98.3 F 78 16 105/54 L 98 12/01/16 16:00 12/01/16 16:00 12/01/16 16:00 12/01/16 16:00 12/01/16 16:00 Intake and Output: 12/01/16 12/01/16 06:59 18:59 Intake Total 400 250 Output Total 1300 Balance -900 250 - Medications Medications: Current Medications Dextrose (Dextrose 50% Inj) 0 ml IV STAT PRN; Protocol PRN Reason: Hyglycemia Protocol Last Admin: 11/18/16 06:21 Dose: 50 ml Enoxaparin Sodium (Lovenox) 90 mg SC Q12 [facility] Last Admin: 12/01/16 10:02 Dose: 90 mg Furosemide (Lasix) 20 mg IVP Q12 [facility] Last Admin: 12/01/16 10:02 Dose: 20 mg Gabapentin (Neurontin) 100 mg PO TID [facility] Last Admin: 12/01/16 17:14 Dose: 100 mg Hydromorphone HCl (Dilaudid) 0.5 mg IVP Q4H PRN PRN Reason: Pain, moderate (4-7) Last Admin: 11/26/16 23:28 Dose: 0.5 mg Hydroxyzine HCl (Atarax) 25 mg PO Q6 PRN PRN Reason: Anxiety Ceftriaxone Sodium 2 gm/ (Sodium Chloride) 100 mls @ 200 mls/hr IVPB Q24H [facility] Last Admin: 12/01/16 12:18 Dose: 200 mls/hr Insulin Aspart (Novolog) 0 unit SC ACHS [facility] PRN Reason: Protocol Last Admin: 12/01/16 16:46 Dose: 4 unit Insulin Detemir (Levemir) 15 unit SC DAILY [facility] Last Admin: 12/01/16 10:01 Dose: 15 unit Ondansetron HCl (Zofran Inj) 4 mg IVP Q6H PRN PRN Reason: Nausea/Vomiting Last Admin: 11/28/16 12:06 Dose: 4 mg Pantoprazole Sodium (Protonix Ec Tab) 40 mg PO BID [facility] Last Admin: 12/01/16 17:14 Dose: 40 mg Saccharomyces Boulardii (Florastor) 250 mg PO BID [facility] Last Admin: 12/01/16 17:14 Dose: 250 mg Sertraline HCl (Zoloft) 50 mg PO DAILY [facility] Last Admin: 12/01/16 10:03 Dose: 50 mg Zolpidem Tartrate (Ambien) 5 mg PO HS PRN PRN Reason: Insomnia - Labs Labs: 12/01/16 06:12 12/01/16 06:12 PT 13.7 SECONDS (9.7-12.2) H 11/29/16 04:00 INR 1.2 11/29/16 04:00 APTT 41 SECONDS (21-34) H D 11/29/16 04:00 - Head Exam Head Exam: ATRAUMATIC - Eye Exam Eye Exam: Normal appearance - ENT Exam ENT Exam: Mucous Membranes Dry - Respiratory Exam Respiratory Exam: NORMAL BREATHING PATTERN - Cardiovascular Exam Cardiovascular Exam: +S1, +S2 - GI/Abdominal Exam GI & Abdominal Exam: Normal Bowel Sounds - Extremities Exam Extremities Exam: Pedal Edema - Neurological Exam Neurological Exam: Oriented x3 - Psychiatric Exam Psychiatric exam: Normal Affect, Normal Mood - Skin Skin Exam: Warm Assessment and Plan (1) Colon cancer Assessment & Plan: with bladder involvement pt considering neoadjuvant chemotherapy Status: Acute (2) DVT (deep venous thrombosis) Assessment & Plan: on therapeutic anticoagulation Status: Acute (3) Anemia Assessment & Plan: chronic disease Status: Acute (4) Pancreatic lesion Assessment & Plan: biopsy negative for malignancy Status: Acute
[2016-12-01] MEDS ORDERED: Magnesium Sulfate 1 gm in D5W 1 GM/100 ML BAG IVPB ONE (18:54)
[2016-12-02 06:13] LABS: BASO % 0.2 % (0.0-2.0); EOS % 0.2 % (0.0-4.0); HEMATOCRIT 27.4 % (35.0-51.0); LYMPH # 1.7 K/uL (1.0-4.3); LYMPH % 11.2 % (20.0-40.0); MEAN CELL VOLUME 76.2 fL (80.0-94.0); MEAN CORPUSCULAR HEMOGLOBIN 24.6 pg (27.0-31.0); MEAN CORPUSCULAR HGB CONC 32.2 g/dL (33.0-37.0); MONO # 1.1 K/uL (0.0-0.8); RED CELL DISTRIBUTION WIDTH 27.3 % (11.5-14.5); WHITE BLOOD COUNT 15.4 K/uL (4.8-10.8)
[2016-12-02 06:24] LABS: ALB/GLOB RATIO 0.7 (1.0-2.1); ALKALINE PHOSPHATASE 135 U/L (38-126); ALT/SGPT 25 U/L (21-72); AST/SGOT 22 U/L (17-59); BILIRUBIN,TOTAL 0.2 mg/dL (0.2-1.3); BLOOD UREA NITROGEN 17 mg/dL (9-20); CALCIUM 6.8 mg/dl (8.6-10.4); CARBON DIOXIDE 30 mmol/L (22-30); CHLORIDE 97 mmol/L (98-107); GFR AFRICAN-AMERICAN > 60; MAGNESIUM 1.6 mg/dL (1.6-2.3); POTASSIUM 3.4 mmol/L (3.6-5.2); SODIUM 133 mmol/L (132-148); TOTAL PROTEIN 4.1 g/dL (6.3-8.3)
[2016-12-02 06:52] LABS: GLUCOSE,RANDOM 39 mg/dL (75-110)
[2016-12-02] MEDS ORDERED: Dextrose 50% SYRINGE Inj (50 ml) IV STA (07:27)
[2016-12-02] MEDS: (Novolog) Insulin Aspart, Recombinant 100 u/ml 10 ml vial SC SCH ×4 (07:30→21:39)
[2016-12-02] MEDS: Enoxaparin 100 mg Syringe SC SCH (09:35)
[2016-12-02] MEDS: Saccharomyces Boulardi 250 mg Cap PO SCH ×2 (09:36→17:06)
[2016-12-02] MEDS: Pantoprazole 40 mg EC Tab PO SCH (09:37)
[2016-12-02] MEDS ORDERED: Potassium Chloride 20 mEq ER Tab PO ONE (10:00)
[2016-12-02] MEDS: Insulin Detemir 100 units/ml Vial (Levemir) SC SCH (10:46)
[2016-12-02] MEDS: cefTRIAXone 2 GM in Sodium Chloride 0.9% 100 ML IVPB SCH (13:08)
--- NOTE | 2016-12-02 14:26 | CP.PCM.PN ---
<Ni Halla - Last Filed: 12/02/16 15:04> Subjective - Date & Time of Evaluation Date of Evaluation: 12/02/16 Time of Evaluation: 08:00 - Subjective Subjective: Medicine Note for Dr. Rivera Patient was seen and examined at bedside. Patient reports he still has diarrhea. He has agreed to have the portacath placed. Denied any fever, chills, SOB, cough, abdominal pain, n/v/, or urinary symptoms. Objective - Vital Signs/Intake and Output Vital Signs (last 24 hours): Temp Pulse Resp BP Pulse Ox 97.4 F L 103 H 20 110/69 98 12/02/16 12:00 12/02/16 12:00 12/02/16 12:00 12/02/16 12:00 12/02/16 12:16 Intake and Output: 12/02/16 12/02/16 06:59 18:59 Intake Total 200 600 Output Total 900 Balance -700 600 - Medications Medications: Current Medications Dextrose (Dextrose 50% Inj) 0 ml IV STAT PRN; Protocol PRN Reason: Hyglycemia Protocol Last Admin: 11/18/16 06:21 Dose: 50 ml Enoxaparin Sodium (Lovenox) 90 mg SC Q12 [facility] Last Admin: 12/02/16 09:35 Dose: 90 mg Furosemide (Lasix) 20 mg IVP Q12 [facility] Last Admin: 12/02/16 09:37 Dose: 20 mg Gabapentin (Neurontin) 100 mg PO TID [facility] Last Admin: 12/02/16 13:08 Dose: 100 mg Hydromorphone HCl (Dilaudid) 0.5 mg IVP Q4H PRN PRN Reason: Pain, moderate (4-7) Last Admin: 11/26/16 23:28 Dose: 0.5 mg Hydroxyzine HCl (Atarax) 25 mg PO Q6 PRN PRN Reason: Anxiety Ceftriaxone Sodium 2 gm/ (Sodium Chloride) 100 mls @ 200 mls/hr IVPB Q24H [facility] Last Admin: 12/02/16 13:08 Dose: 200 mls/hr Insulin Aspart (Novolog) 0 unit SC ACHS [facility] PRN Reason: Protocol Last Admin: 12/02/16 12:12 Dose: 3 unit Insulin Detemir (Levemir) 15 unit SC DAILY [facility] Last Admin: 12/02/16 10:46 Dose: Not Given Ondansetron HCl (Zofran Inj) 4 mg IVP Q6H PRN PRN Reason: Nausea/Vomiting Last Admin: 11/28/16 12:06 Dose: 4 mg Pantoprazole Sodium (Protonix Ec Tab) 40 mg PO DAILY [facility] Last Admin: 12/02/16 09:37 Dose: 40 mg Saccharomyces Boulardii (Florastor) 250 mg PO BID [facility] Last Admin: 12/02/16 09:36 Dose: 250 mg Sertraline HCl (Zoloft) 50 mg PO DAILY [facility] Last Admin: 12/02/16 09:37 Dose: 50 mg Zolpidem Tartrate (Ambien) 5 mg PO HS PRN PRN Reason: Insomnia - Labs Labs: 12/02/16 06:03 12/02/16 06:02 PT 13.7 SECONDS (9.7-12.2) H 11/29/16 04:00 INR 1.2 11/29/16 04:00 APTT 41 SECONDS (21-34) H D 11/29/16 04:00 - Constitutional Appears: No Acute Distress, Chronically Ill - Head Exam Head Exam: NORMAL INSPECTION, NORMOCEPHALIC - Eye Exam Eye Exam: EOMI, Normal appearance, PERRL Pupil Exam: NORMAL ACCOMODATION - ENT Exam ENT Exam: Mucous Membranes Moist - Respiratory Exam Respiratory Exam: Decreased Breath Sounds (R> L ), NORMAL BREATHING PATTERN - Cardiovascular Exam Cardiovascular Exam: REGULAR RHYTHM, RRR - GI/Abdominal Exam GI & Abdominal Exam: Soft, Normal Bowel Sounds. absent: Distended, Tenderness - Extremities Exam Extremities Exam: Normal Inspection. absent: Pedal Edema, Tenderness - Neurological Exam Neurological Exam: Alert, Awake, Oriented x3 - Skin Skin Exam: Dry, Intact, Normal Color, Warm Assessment and Plan - Assessment and Plan (Free Text) Plan: Chronic diarrhea Assessment & Plan: Secondary to 2/2 10 cm Unresectable Rectosigmoid Mass 12/02/16 POD #6; Surgery will remove abdominal incision jody on POD #10. Surgery reconsulted for portacath placement. NPO past midnight tonight for OR tomorrow morning. 11/30/16: POD # 4: As per conversation with Dr. Lake Harris on 11/29/16, patient has decided to be DNR/DNI 11/29/16: POD #3. Patient is still undecided concerning further management. If he decides to proceed then he will need a Chemo Port placed. He has signed DNR/ DNI. I discussed patient's decision concerning further treatment with Dr. Willow Garcia on the night of 11/28/1611/28: s/p exploratory laparotomy POD2, w/ findings of unresectable rectosigmoid mass. Patient stated today he does not want the chemoport, he said he wants time to think about it. Patient appears tired and he does not want to make sudden decisions. No morning labs, blood draw was difficult this morning due to poor vein access. 11/27: s/p exploratory laparotomy POD1, w/ findings of unresectable rectosigmoid mass. Per surgery note, patient will need a portacath placement, time and date to be determined. Will stop heparin drip (tx for RUE deep vein thrombosis) 4 hours prior to portacath placement procedure. 11/26: Per rn surgical, the surgery today to resect patient's sigmoid mass was halted after it was determined the mass was too large/firm for removal. The patient will be treated with a neoadjuvant with hopes of shrinking the size of the tumor with possible surgery for removal at a later date. Patient was sent to ICU post OR for monitoring. 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 Due to lovenox longer half life, therapeutic lovenox was discontinued and heparin was started. Heparin 8000u iv bolus was given and heparin drip was started at 18u/kg/hr. This drip will be stopped at exactly 5am, 4 hours before surgery. 11/21: Pt s/p cystoscopy today. Patient found to have invasion to dome of urinary bladder. Surgery to plan for surgery some time next week 11/21: Per GI, Abdominal U/S obtained to rule out SV thrombosis given presence of gastroesopahgeal varices seen on endoscopic examination -> Abdominal U/S: 1. Hepatocellular disease without focal hepatic mass. 2. Patent portal venous system including splenic vein. 3. Cholelithiasis. No sonographic evidence of acute cholecystitis. 4. Cystic mass in the head of the pancreas. Remainder the pancreas is not visualized. 7/20: PICC placed today by IR DR Armando. 11/20: s/p upper EUS: "LA grade C erosive esophagitis. 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 75mm x 65mm psedocyst seen in pancreatic body, fine needle aspiration for fluid performed. Varices were visualized endosonographically in fundus of stomach". Will f/u cystology and CEA levels. 11/20: s/p venous duplex of upper extremities: "right: acute thrombosis of right subclavian, axillary and brachial veins with severe reduction of venous return. left: acute thrombosis of left cephatlic vein with severe reduction of venous return". Therapeutic lovenox started -> 90mg q12 sc. 11/20: s/p venous duplex of lower extremeties: negative 11/19: GI to perform EUS tomorrow. Advanced diet to liquid - will advance as tolerated. B/l upper and lower extremity duplex scans were ordered today. 11/18: Patient is s/p EGD/Colonoscopy. A 10cm partially obstructing sigmoid mass was seen and biopsied. Multiple polyps were seen and resected. Heme/Onc, Dr Garcia has been consulted, we will follow up with his recommendations. CT chest abdomen and pelvis findings as noted: suspected sigmoid and proximal rectum mass lesion without evidence of high grade bowel obstruction; suspected abscess formation; cystic mass lesion noted at pancreas with surrounding fat stranding of the pancreatic tail; large gallstones without evidence of acute cholecystitis GI consult (Dr. Srivastava)---> Help appreciated General Surgery Consult (Dr. Amin)----> Help appreciated Urology Consult ( Dr. Jon)----> Help appreciated Stool culture negative for salmonella, shigella, campylobacter Stool leukocytes negative Ova and parasites not seen C. diffi toxin AB negative Status: Acute Acute deep vein thrombosis (DVT) of right upper extremity Assessment & Plan: 11/30/16: Continue therapeutic Lovenox at 90 mg SC Q12H 11/29: Heparin Drip was discontinued on 11/28/16 as PTT could not be measured secondary to inability to draw blood from edematous arms and could not draw blood from left arm PICC for the PTT level due to the Heprin Drip being infused through the PICC. Therefore patient was restarted on therapeutic Lovenox at 90 mg SC Q12H 11/27: Heparin drip restarted at 18u/kg/hr. Heparin bolus 8,000u given prior to start of drip. 11/26: Per surgery, plan is to restart anticoagulant tomorrow morning Status: Acute Bacteremia Assessment & Plan: 12/02/16: Continued on Ceftriaxone 2 gm IV Q24H for 14 days starting 11/29/16. Developed leukocytosis 7.2 --> 15.4 11/30/17: As per ID, Repeat blood culture was negative, Primaxin and Flagyl was discontinued (11/29/16). Ceftriaxone 2 gm IV Q24H for 14 days starting 11/29/16 11/29/16: E. coli in blood culture on 11/15/16. Repeat blood culture on 11/23/16 was finalized as negative. I will speak with ID Dr. Burns concerning how much longer we need to continue the Primaxin and Flagyl 11/27: wbc trending down. afebrile. will continue primaxin and flagyl and monitor bands and wbc. Blood cultures negative after 3 days. 11/26: Patient in ICU for monitoring post OR, Bands 12 today, will monitor. 11/25: Blood cultures are negative after [address] Burns, con't tx for minimum of 14 days; Primaxin and Flagyl both started on 11/17. 11/19: HIV screen negative, Hep panel negative. Bands 26 today. 11/18: HIV 1&2 antibodies, Hep panel were ordered today. ID has been consulted, Dr Burns, we will follow his recommendations. 11/17: Changed to IV Primaxin 500mg IV Q6 Follow cultures. Currently blood pressure and HR stable. Nonfebrile. Continue with the IVF, monitor lowe outputs Status: Acute Pleural Effusions CXR 12/02 compared to 11/15 --> B/L pleural effusions R>L. Placed on lasix 40mg IVP Q12. Uncontrolled diabetes mellitus Assessment & Plan: Recent HgbA1C: 11.5 (11/20/16) Accuchecks Aspart ISS - low Levemir 15 units SC HS---> restarted (11/30/16) as patient is now eating Hold glipizide Status: Chronic Esophageal abrasion Assessment & Plan: 11/18: Per endoscopy report * Ulcerated mucosa in the lower third of the esophagus was seen and biopsied. Medication: * Patient is on Protonix 40 mg PO BID. Status: Acute Pancreatic lesion Assessment & Plan: GI outpatient follow-up 11/26: Pancreatic cyst FNA negative for malignant cells per cytology report. 11/25: Per labor trainer, EUS performed on 11/20 sampled pancreatic cyst fluid with diagnostic studies ordered for ptf amylase and ptf CEA only 11/20: Upper EUS performed today: "75mm x 65mm psedocyst seen in pancreatic body , fine needle aspiration for fluid performed 11/18: CT abd/pelvis shows cystic mass lesion at pancreas with fat stranding of pacreatic tail. Lipase level and lipid panel was ordered today. 11/17: CA 19-9 wnl Status: Acute Cholelithiasis Assessment & Plan: GI outpatient follow-up 11/18: CT abd/pelvis shows large gallstones without evidence of acute cholecystitis. Status: Acute Anemia of chronic disease Assessment & Plan: 11/30:H/H : 8.4/25.9 11/29: HgB/Hct is 9.0/28.0 11/27: H/H stable, will continue to monitor. 11/26: After discussing with Heme/Onc Dr Garcia, since Ferritin is normal ferrlecit will not provide much benefit, will discontinue 11/25: Will start Ferrlecit 125mg iv daily after surgical procedure 11/25: Hgb stable at 8.6. Status: Acute Abnormal cardiovascular stress test Assessment & Plan: Cardiology outpatient follow-up 11/25: Nuclear Stress Test: Defect in mid-anteroseptal wall, defect in basal inferoseptal wall, fixed apical defect old [place], small defect inferior wall 11/25: ECHO: left ventricle systolic function is normal. EF is 50-55%. Status: Acute Prophylactic measure Assessment & Plan: Protonix 40 mg PO BID Lovenox 90mg IV q12H Florastor PO BID Ambien 5 mg PO HS Glucerna Shake 3 times a day help increase his protein level Physical Therapy started on 11/29/16 Status: Acute DW Rafael Stoddard DO, PGY-1 <Blanco Rivera - Last Filed: 12/02/16 15:11> Objective - Vital Signs/Intake and Output Vital Signs (last 24 hours): Temp Pulse Resp BP Pulse Ox 97.4 F L 103 H 20 110/69 98 12/02/16 12:00 12/02/16 12:00 12/02/16 12:00 12/02/16 12:00 12/02/16 12:16 Intake and Output: 12/02/16 12/02/16 06:59 18:59 Intake Total 200 1060 Output Total 900 Balance -700 1060 - Medications Medications: Current Medications Dextrose (Dextrose 50% Inj) 0 ml IV STAT PRN; Protocol PRN Reason: Hyglycemia Protocol Last Admin: 11/18/16 06:21 Dose: 50 ml Enoxaparin Sodium (Lovenox) 90 mg SC Q12 [facility] Last Admin: 12/02/16 09:35 Dose: 90 mg Furosemide (Lasix) 40 mg IVP Q12 [facility] Gabapentin (Neurontin) 100 mg PO TID [facility] Last Admin: 12/02/16 13:08 Dose: 100 mg Hydromorphone HCl (Dilaudid) 0.5 mg IVP Q4H PRN PRN Reason: Pain, moderate (4-7) Last Admin: 11/26/16 23:28 Dose: 0.5 mg Hydroxyzine HCl (Atarax) 25 mg PO Q6 PRN PRN Reason: Anxiety Ceftriaxone Sodium 2 gm/ (Sodium Chloride) 100 mls @ 200 mls/hr IVPB Q24H [facility] Last Admin: 12/02/16 13:08 Dose: 200 mls/hr Insulin Aspart (Novolog) 0 unit SC ACHS [facility] PRN Reason: Protocol Last Admin: 12/02/16 12:12 Dose: 3 unit Insulin Detemir (Levemir) 15 unit SC DAILY [facility] Last Admin: 12/02/16 10:46 Dose: Not Given Ondansetron HCl (Zofran Inj) 4 mg IVP Q6H PRN PRN Reason: Nausea/Vomiting Last Admin: 11/28/16 12:06 Dose: 4 mg Pantoprazole Sodium (Protonix Ec Tab) 40 mg PO DAILY [facility] Last Admin: 12/02/16 09:37 Dose: 40 mg Saccharomyces Boulardii (Florastor) 250 mg PO BID [facility] Last Admin: 12/02/16 09:36 Dose: 250 mg Sertraline HCl (Zoloft) 50 mg PO DAILY [facility] Last Admin: 12/02/16 09:37 Dose: 50 mg Zolpidem Tartrate (Ambien) 5 mg PO HS PRN PRN Reason: Insomnia - Labs Labs: 12/02/16 06:03 12/02/16 06:02 PT 13.7 SECONDS (9.7-12.2) H 11/29/16 04:00 INR 1.2 11/29/16 04:00 APTT 41 SECONDS (21-34) H D 11/29/16 04:00 Attending/Attestation - Attestation I have personally seen and examined this patient.: Yes I have fully participated in the care of the patient.: Yes I have reviewed all pertinent clinical information, including history, physical exam and plan: Yes Notes (Text): 12/02/16 15:10 Patient was seen and examined at bedside with the residents. Patient does not any new complaints. On auscultation decreased breath sounds in the lung bases with. More on the right than left. We will follow up the chest x-ray. Plan for Port-A-Cath placement tomorrow. We will hold therapeutic Lovenox tonight. Plan for chemotherapy as outpatient. I discussed the plan of care with the resident and agree with the history and physical and assessment/plan documented by the resident.
--- NOTE | 2016-12-02 16:04 | CP.PCM.PN ---
Subjective - Date & Time of Evaluation Date of Evaluation: 12/02/16 Time of Evaluation: 16:01 - Subjective Subjective: Surgery: Dr. Dougherty Patient decided to move forward with chemotherapy and portacath placement. Objective - Vital Signs/Intake and Output Vital Signs (last 24 hours): Temp Pulse Resp BP Pulse Ox 97.4 F L 103 H 20 110/69 98 12/02/16 12:00 12/02/16 12:00 12/02/16 12:00 12/02/16 12:00 12/02/16 12:16 Intake and Output: 12/02/16 12/02/16 06:59 18:59 Intake Total 200 1060 Output Total 900 Balance -700 1060 - Medications Medications: Current Medications Dextrose (Dextrose 50% Inj) 0 ml IV STAT PRN; Protocol PRN Reason: Hyglycemia Protocol Last Admin: 11/18/16 06:21 Dose: 50 ml Enoxaparin Sodium (Lovenox) 90 mg SC Q12 [facility] Last Admin: 12/02/16 09:35 Dose: 90 mg Furosemide (Lasix) 40 mg IVP Q12 [facility] Gabapentin (Neurontin) 100 mg PO TID [facility] Last Admin: 12/02/16 13:08 Dose: 100 mg Hydromorphone HCl (Dilaudid) 0.5 mg IVP Q4H PRN PRN Reason: Pain, moderate (4-7) Last Admin: 11/26/16 23:28 Dose: 0.5 mg Hydroxyzine HCl (Atarax) 25 mg PO Q6 PRN PRN Reason: Anxiety Ceftriaxone Sodium 2 gm/ (Sodium Chloride) 100 mls @ 200 mls/hr IVPB Q24H [facility] Last Admin: 12/02/16 13:08 Dose: 200 mls/hr Insulin Aspart (Novolog) 0 unit SC ACHS [facility] PRN Reason: Protocol Last Admin: 12/02/16 12:12 Dose: 3 unit Insulin Detemir (Levemir) 15 unit SC DAILY [facility] Last Admin: 12/02/16 10:46 Dose: Not Given Ondansetron HCl (Zofran Inj) 4 mg IVP Q6H PRN PRN Reason: Nausea/Vomiting Last Admin: 11/28/16 12:06 Dose: 4 mg Pantoprazole Sodium (Protonix Ec Tab) 40 mg PO DAILY [facility] Last Admin: 12/02/16 09:37 Dose: 40 mg Saccharomyces Boulardii (Florastor) 250 mg PO BID [facility] Last Admin: 12/02/16 09:36 Dose: 250 mg Sertraline HCl (Zoloft) 50 mg PO DAILY [facility] Last Admin: 12/02/16 09:37 Dose: 50 mg Zolpidem Tartrate (Ambien) 5 mg PO HS PRN PRN Reason: Insomnia - Labs Labs: 12/02/16 06:03 12/02/16 06:02 PT 13.7 SECONDS (9.7-12.2) H 11/29/16 04:00 INR 1.2 11/29/16 04:00 APTT 41 SECONDS (21-34) H D 11/29/16 04:00 - Constitutional Appears: Non-toxic, No Acute Distress, Chronically Ill - Head Exam Head Exam: ATRAUMATIC, NORMOCEPHALIC - Eye Exam Eye Exam: EOMI, Normal appearance - ENT Exam ENT Exam: Mucous Membranes Moist - Respiratory Exam Respiratory Exam: NORMAL BREATHING PATTERN. absent: Respiratory Distress - Cardiovascular Exam Cardiovascular Exam: REGULAR RHYTHM. absent: Tachycardia - Neurological Exam Neurological Exam: Alert, Awake, Oriented x3 - Psychiatric Exam Psychiatric exam: Normal Affect, Normal Mood - Skin Skin Exam: Dry, Normal Color, Warm Assessment and Plan - Assessment and Plan (Free Text) Assessment: 66 y/o male w/ colon adenocarcinoma, unresectable agreeing to chemotherapy in need to portacath Plan: -plan for portacath 12/03 -NPO pm -hold antiocoagulation -d/w Dr. Dougherty [facility] PGY3
--- NOTE | 2016-12-02 16:47 | RAD ---
HISTORY: decreased breath sounds on right COMPARISON: Chest x-ray performed 11/15/16 TECHNIQUE: Chest, one view. FINDINGS: Examination markedly limited by habitus and hypoinflation. Left-sided PICC with distal tip appearing to terminate at the level of the brachiocephalic vein. LUNGS: Small right greater than left layering pleural effusions and associated atelectasis or infiltrates. No definite pneumothorax. Please note that chest x-ray has limited sensitivity for the detection of pulmonary masses. CARDIOVASCULAR: Cardiomegaly. OSSEOUS STRUCTURES: Degenerative changes. VISUALIZED UPPER ABDOMEN: Unremarkable. OTHER FINDINGS: None. IMPRESSION: Left-sided PICC with distal tip appearing to terminate at the level of the brachiocephalic vein. Limited study due to habitus and hypoinflation. Small right greater than left layering pleural effusions and associated atelectasis or infiltrates. Cardiomegaly.
[2016-12-03 07:30] LABS: INR 1.3
[2016-12-03] MEDS: (Novolog) Insulin Aspart, Recombinant 100 u/ml 10 ml vial SC SCH ×4 (07:44→21:33)
[2016-12-03 07:48] LABS: CHLORIDE 95 mmol/L (98-107); POTASSIUM 3.8 mmol/L (3.6-5.2); SODIUM 132 mmol/L (132-148)
[2016-12-03 07:50] LABS: GFR AFRICAN-AMERICAN > 60
[2016-12-03 07:51] LABS: ALB/GLOB RATIO 0.6 (1.0-2.1); ALKALINE PHOSPHATASE 124 U/L (38-126); ALT/SGPT 30 U/L (21-72); AST/SGOT 17 U/L (17-59); BILIRUBIN,TOTAL 0.6 mg/dL (0.2-1.3); BLOOD UREA NITROGEN 15 mg/dL (9-20); CARBON DIOXIDE 31 mmol/L (22-30)
[2016-12-03 07:52] LABS: CALCIUM 6.4 mg/dl (8.6-10.4); GLUCOSE,RANDOM 270 mg/dL (75-110); MAGNESIUM 1.4 mg/dL (1.6-2.3); PHOSPHOROUS 2.8 mg/dL (2.5-4.5)
[2016-12-03] MEDS: Saccharomyces Boulardi 250 mg Cap PO SCH ×2 (09:19→17:33)
[2016-12-03] MEDS: Pantoprazole 40 mg EC Tab PO SCH (09:23)
[2016-12-03] MEDS: Insulin Detemir 100 units/ml Vial (Levemir) SC SCH (09:24)
[2016-12-03] MEDS ORDERED: Lidocaine 1% Inj (20ml) ONE (10:15)
[2016-12-03] MEDS ORDERED: Lactated Ringer's 1,000 ML IV ONE (10:25)
[2016-12-03] MEDS ORDERED: Propofol 10 mg/ml Inj (20 ML) ONE (10:27)
[2016-12-03] MEDS ORDERED: Midazolam 2 MG/2 ML VIAL ONE (10:27)
--- NOTE | 2016-12-03 11:23 | PCM.SURG1 ---
Surgeon's Initial Post Op Note - Surgeon's Notes Surgeon: Dr. Amin Dietist: Sherman PGY2 PGY1 Marilee OMS3 Pre-Operative Diagnosis: Colon Cancer Operative Findings: IJ placement Post-Operative Diagnosis: same Operation Performed: Right IJ portacath placement Specimen/Specimens Removed: none Estimated Blood Loss: EBL {In ML}: 5 Drains Used: No Drains Date of Surgery/Procedure: 12/03/16 Time of Surgery/Procedure: 11:00
[2016-12-03] MEDS ORDERED: HYDROmorphone 0.5 mg/0.5 ml ISec IVP PRN (11:25)
[2016-12-03] MEDS ORDERED: Lidocaine 1% Inj (20ml) IV ONE (11:35)
--- NOTE | 2016-12-03 12:24 | RAD ---
HISTORY: r/o pneumothorax COMPARISON: Chest x-ray performed 12/02/16 TECHNIQUE: Chest, one view. FINDINGS: Examination limited by habitus. Right-sided central venous catheter terminates at the expected location of the SVC. Left-sided PICC extends to the SVC as well. LUNGS: Layering right greater than left pleural effusions and associated consolidations. No definite pneumothorax. Please note that chest x-ray has limited sensitivity for the detection of pulmonary masses. CARDIOVASCULAR: Partially obscured. Atherosclerotic calcifications of the aorta. OSSEOUS STRUCTURES: Degenerative changes of the spine. VISUALIZED UPPER ABDOMEN: Unremarkable. OTHER FINDINGS: None. IMPRESSION: Right-sided MediPort. Left-sided PICC. Layering right greater than left pleural effusions and associated consolidations. No definite pneumothorax.
--- NOTE | 2016-12-03 13:04 | RAD ---
PROCEDURE: Intraoperative Fluoroscopy. HISTORY: FOR VENOUS ACCESS FINDINGS: Fluoroscopic assistance was provided for right central venous catheter placement. Please refer to the operative report from
--- NOTE | 2016-12-03 13:13 | CP.PCM.PN ---
<Ni Halla - Last Filed: 12/03/16 13:10> Subjective - Date & Time of Evaluation Date of Evaluation: 12/03/16 Time of Evaluation: 07:00 - Subjective Subjective: Medicine Note for Dr. Rivera Patient was seen and examined at bedside. Patient reports he has a dry cough. Denied any fever, chills, SOB, cough, abdominal pain, n/v/, or urinary symptoms. Had Portacath placed today, RIJ. Objective - Vital Signs/Intake and Output Vital Signs (last 24 hours): Temp Pulse Resp BP Pulse Ox 98.0 F 109 H 10 L 112/67 99 12/03/16 12:00 12/03/16 12:00 12/03/16 12:00 12/03/16 12:00 12/03/16 12:00 Intake and Output: 12/03/16 12/03/16 06:59 18:59 Intake Total 270 Output Total 1950 100 Balance -1680 -100 - Medications Medications: Current Medications Dextrose (Dextrose 50% Inj) 0 ml IV STAT PRN; Protocol PRN Reason: Hyglycemia Protocol Last Admin: 11/18/16 06:21 Dose: 50 ml Enoxaparin Sodium (Lovenox) 90 mg SC Q12 ON LICENSE OF [facility] Last Admin: 12/02/16 09:35 Dose: 90 mg Furosemide (Lasix) 20 mg IVP Q12 DOREEN Gabapentin (Neurontin) 100 mg PO TID ON LICENSE OF [facility] Last Admin: 12/03/16 09:23 Dose: 100 mg Hydromorphone HCl (Dilaudid) 0.5 mg IVP Q4H PRN PRN Reason: Pain, moderate (4-7) Last Admin: 11/26/16 23:28 Dose: 0.5 mg Hydromorphone HCl (Dilaudid) 0.5 mg IVP Q10M PRN PRN Reason: Pain, severe (8-10) Stop: 12/03/16 13:26 Hydroxyzine HCl (Atarax) 25 mg PO Q6 PRN PRN Reason: Anxiety Ceftriaxone Sodium 2 gm/ (Sodium Chloride) 100 mls @ 200 mls/hr IVPB Q24H ON LICENSE OF [facility] Last Admin: 12/02/16 13:08 Dose: 200 mls/hr Insulin Aspart (Novolog) 0 unit SC ACHS DOREEN PRN Reason: Protocol Last Admin: 12/03/16 07:44 Dose: Not Given Insulin Detemir (Levemir) 15 unit SC DAILY ON LICENSE OF [facility] Last Admin: 12/03/16 09:24 Dose: Not Given Ondansetron HCl (Zofran Inj) 4 mg IVP Q6H PRN PRN Reason: Nausea/Vomiting Last Admin: 11/28/16 12:06 Dose: 4 mg Pantoprazole Sodium (Protonix Ec Tab) 40 mg PO DAILY ON LICENSE OF [facility] Last Admin: 12/03/16 09:23 Dose: 40 mg Saccharomyces Boulardii (Florastor) 250 mg PO BID ON LICENSE OF [facility] Last Admin: 12/03/16 09:19 Dose: 250 mg Sertraline HCl (Zoloft) 50 mg PO DAILY ON LICENSE OF [facility] Last Admin: 12/03/16 09:22 Dose: 50 mg Zolpidem Tartrate (Ambien) 5 mg PO HS PRN PRN Reason: Insomnia Last Admin: 12/02/16 23:56 Dose: 5 mg - Labs Labs: 12/02/16 06:03 12/03/16 07:08 PT 15.0 SECONDS (9.7-12.2) H 12/03/16 07:08 INR 1.3 12/03/16 07:08 APTT 37 SECONDS (21-34) H 12/03/16 07:08 - Constitutional Appears: No Acute Distress, Chronically Ill - Head Exam Head Exam: NORMAL INSPECTION, NORMOCEPHALIC - Eye Exam Eye Exam: EOMI, Normal appearance, PERRL Pupil Exam: NORMAL ACCOMODATION - ENT Exam ENT Exam: Mucous Membranes Moist, Normal Exam - Respiratory Exam Respiratory Exam: Decreased Breath Sounds, NORMAL BREATHING PATTERN - Cardiovascular Exam Cardiovascular Exam: REGULAR RHYTHM, RRR - GI/Abdominal Exam GI & Abdominal Exam: Soft, Normal Bowel Sounds. absent: Distended, Tenderness Additional comments: abdominal incision with jody in place - Extremities Exam Extremities Exam: Normal Inspection, Pedal Edema. absent: Tenderness Additional comments: Right arm swollen 2/2 DVT. BL LE edema - Neurological Exam Neurological Exam: Alert, Awake, Oriented x3 - Psychiatric Exam Psychiatric exam: Normal Affect, Normal Mood - Skin Skin Exam: Dry, Intact, Normal Color, Warm Assessment and Plan - Assessment and Plan (Free Text) Plan: Chronic diarrhea Assessment & Plan: Secondary to 2/2 10 cm Unresectable Rectosigmoid Mass 12/03/16: POD #0 RIJ Portacath insertion, s/p exploratory laparotomy POD#7, w/ findings of unresectable rectosigmoid mass. Surgery will remove abdominal incision jdoy on POD #10. 12/02/16 POD #6; Surgery will remove abdominal incision jody on POD #10. Surgery reconsulted for portacath placement. NPO past midnight tonight for OR tomorrow morning. 11/30/16: POD # 4: As per conversation with Dr. Lake Harris on 11/29/16, patient has decided to be DNR/DNI 11/29/16: POD #3. Patient is still undecided concerning further management. If he decides to proceed then he will need a Chemo Port placed. He has signed DNR/ DNI. I discussed patient's decision concerning further treatment with Dr. Willow Garcia on the night of 11/28/1611/28: s/p exploratory laparotomy POD2, w/ findings of unresectable rectosigmoid mass. Patient stated today he does not want the chemoport, he said he wants time to think about it. Patient appears tired and he does not want to make sudden decisions. No morning labs, blood draw was difficult this morning due to poor vein access. 11/27: s/p exploratory laparotomy POD1, w/ findings of unresectable rectosigmoid mass. Per surgery note, patient will need a portacath placement, time and date to be determined. Will stop heparin drip (tx for RUE deep vein thrombosis) 4 hours prior to portacath placement procedure. 11/26: Per educational institution president, the surgery today to resect patient's sigmoid mass was halted after it was determined the mass was too large/firm for removal. The patient will be treated with a neoadjuvant with hopes of shrinking the size of the tumor with possible surgery for removal at a later date. Patient was sent to ICU post OR for monitoring. 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 Due to lovenox longer half life, therapeutic lovenox was discontinued and heparin was started. Heparin 8000u iv bolus was given and heparin drip was started at 18u/kg/hr. This drip will be stopped at exactly 5am, 4 hours before surgery. 11/21: Pt s/p cystoscopy today. Patient found to have invasion to dome of urinary bladder. Surgery to plan for surgery some time next week 11/21: Per GI, Abdominal U/S obtained to rule out SV thrombosis given presence of gastroesopahgeal varices seen on endoscopic examination -> Abdominal U/S: 1. Hepatocellular disease without focal hepatic mass. 2. Patent portal venous system including splenic vein. 3. Cholelithiasis. No sonographic evidence of acute cholecystitis. 4. Cystic mass in the head of the pancreas. Remainder the pancreas is not visualized. 11/21: PICC placed today by IR DR Armando. 11/20: s/p upper EUS: "LA grade C erosive esophagitis. 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 75mm x 65mm psedocyst seen in pancreatic body, fine needle aspiration for fluid performed. Varices were visualized endosonographically in fundus of stomach". Will f/u cystology and CEA levels. 11/20: s/p venous duplex of upper extremities: "right: acute thrombosis of right subclavian, axillary and brachial veins with severe reduction of venous return. left: acute thrombosis of left cephatlic vein with severe reduction of venous return". Therapeutic lovenox started -> 90mg q12 sc. 11/20: s/p venous duplex of lower extremeties: negative 11/19: GI to perform EUS tomorrow. Advanced diet to liquid - will advance as tolerated. B/l upper and lower extremity duplex scans were ordered today. 11/18: Patient is s/p EGD/Colonoscopy. A 10cm partially obstructing sigmoid mass was seen and biopsied. Multiple polyps were seen and resected. Heme/Onc, Dr Garcia has been consulted, we will follow up with his recommendations. CT chest abdomen and pelvis findings as noted: suspected sigmoid and proximal rectum mass lesion without evidence of high grade bowel obstruction; suspected abscess formation; cystic mass lesion noted at pancreas with surrounding fat stranding of the pancreatic tail; large gallstones without evidence of acute cholecystitis GI consult (Dr. Srivastava)---> Help appreciated General Surgery Consult (Dr. Amin)----> Help appreciated Urology Consult (Dr. Jon)----> Help appreciated Stool culture negative for salmonella, shigella, campylobacter Stool leukocytes negative Ova and parasites not seen C. diffi toxin AB negative Status: Acute Acute deep vein thrombosis (DVT) of right upper extremity Assessment & Plan: Continue therapeutic Lovenox at 90 mg SC Q12H - was held due to surgery for portacath placement, will resume as per surgery. 11/29: Heparin Drip was discontinued on 11/28/16 as PTT could not be measured secondary to inability to draw blood from edematous arms and could not draw blood from left arm PICC for the PTT level due to the Heprin Drip being infused through the PICC. Therefore patient was restarted on therapeutic Lovenox at 90 mg SC Q12H 11/27: Heparin drip restarted at 18u/kg/hr. Heparin bolus 8,000u given prior to start of drip. 11/26: Per surgery, plan is to restart anticoagulant tomorrow morning Status: Acute Bacteremia Assessment & Plan: Continue on Ceftriaxone 2 gm IV Q24H for 14 days starting 11/29/16. Developed leukocytosis 7.2 --> 15.4 11/30/17: As per ID, Repeat blood culture was negative, Primaxin and Flagyl was discontinued (11/29/16). Ceftriaxone 2 gm IV Q24H for 14 days starting 11/29/16 11/29/16: E. coli in blood culture on 11/15/16. Repeat blood culture on 11/23/16 was finalized as negative. I will speak with ID Dr. Burns concerning how much longer we need to continue the Primaxin and Flagyl 11/27: wbc trending down. afebrile. will continue primaxin and flagyl and monitor bands and wbc. Blood cultures negative after 3 days. 11/26: Patient in ICU for monitoring post OR, Bands 12 today, will monitor. 11/25: Blood cultures are negative after [address] Burns, con't tx for minimum of 14 days; Primaxin and Flagyl both started on 11/17. 11/19: HIV screen negative, Hep panel negative. Bands 26 today. 11/18: HIV 1&2 antibodies, Hep panel were ordered today. ID has been consulted, Dr Burns, we will follow his recommendations. 11/17: Changed to IV Primaxin 500mg IV Q6 Follow cultures. Currently blood pressure and HR stable. Nonfebrile. Continue with the IVF, monitor lowe outputs Status: Acute Pleural Effusions CXR 12/02 compared to 11/15 --> B/L pleural effusions R>L. Placed on lasix 20mg IVP Q12. Pulmonology consulted, Dr. Mccormick - help appreciated Uncontrolled diabetes mellitus Assessment & Plan: Recent HgbA1C: 11.5 (11/20/16) Accuchecks Aspart ISS - low Levemir 15 units SC HS---> restarted (11/30/16) as patient is now eating Hold glipizide Status: Chronic Esophageal abrasion Assessment & Plan: 11/18: Per endoscopy report * Ulcerated mucosa in the lower third of the esophagus was seen and biopsied. Medication: * Patient is on Protonix 40 mg PO BID. Status: Acute Pancreatic lesion Assessment & Plan: GI outpatient follow-up 11/26: Pancreatic cyst FNA negative for malignant cells per cytology report. 11/25: Per clinical lab scientist, EUS performed on 11/20 sampled pancreatic cyst fluid with diagnostic studies ordered for ptf amylase and ptf CEA only 11/20: Upper EUS performed today: "75mm x 65mm psedocyst seen in pancreatic body , fine needle aspiration for fluid performed 11/18: CT abd/pelvis shows cystic mass lesion at pancreas with fat stranding of pacreatic tail. Lipase level and lipid panel was ordered today. 11/17: CA 19-9 wnl Status: Acute Cholelithiasis Assessment & Plan: GI outpatient follow-up 11/18: CT abd/pelvis shows large gallstones without evidence of acute cholecystitis. Status: Acute Anemia of chronic disease Assessment & Plan: 11/30:H/H : 8.4/25.9 11/29: HgB/Hct is 9.0/28.0 11/27: H/H stable, will continue to monitor. 11/26: After discussing with Heme/Onc Dr Garcia, since Ferritin is normal ferrlecit will not provide much benefit, will discontinue 11/25: Will start Ferrlecit 125mg iv daily after surgical procedure 11/25: Hgb stable at 8.6. Status: Acute Abnormal cardiovascular stress test Assessment & Plan: Cardiology outpatient follow-up 11/25: Nuclear Stress Test: Defect in mid-anteroseptal wall, defect in basal inferoseptal wall, fixed apical defect old SD, small defect inferior wall 11/25: ECHO: left ventricle systolic function is normal. EF is 50-55%. Status: Acute Prophylactic measure Assessment & Plan: Protonix 40 mg PO BID Lovenox 90mg IV q12H Florastor PO BID Ambien 5 mg PO HS Glucerna Shake 3 times a day help increase his protein level Physical Therapy started on 11/29/16 Status: Acute DW Rafael Stoddard DO, PGY-1 <Blanco Rivera - Last Filed: 12/03/16 17:22> Objective - Vital Signs/Intake and Output Vital Signs (last 24 hours): Temp Pulse Resp BP Pulse Ox 98.0 F 89 10 L 112/67 99 12/03/16 12:00 12/03/16 16:09 12/03/16 12:00 12/03/16 16:09 12/03/16 16:09 Intake and Output: 12/03/16 12/03/16 06:59 18:59 Intake Total 270 Output Total 1950 100 Balance -1680 -100 - Medications Medications: Current Medications Enoxaparin Sodium (Lovenox) 90 mg SC Q12 ON LICENSE OF [facility] Last Admin: 12/02/16 09:35 Dose: 90 mg Furosemide (Lasix) 20 mg IVP Q12 DOREEN Gabapentin (Neurontin) 100 mg PO TID ON LICENSE OF [facility] Last Admin: 12/03/16 13:54 Dose: 100 mg Hydromorphone HCl (Dilaudid) 0.5 mg IVP Q4H PRN PRN Reason: Pain, moderate (4-7) Last Admin: 11/26/16 23:28 Dose: 0.5 mg Hydroxyzine HCl (Atarax) 25 mg PO Q6 PRN PRN Reason: Anxiety Ceftriaxone Sodium 2 gm/ (Sodium Chloride) 100 mls @ 200 mls/hr IVPB Q24H ON LICENSE OF [facility] Last Admin: 12/03/16 13:55 Dose: 200 mls/hr Insulin Aspart (Novolog) 0 unit SC ACHS DOREEN PRN Reason: Protocol Last Admin: 12/03/16 11:30 Dose: Not Given Insulin Detemir (Levemir) 15 unit SC DAILY ON LICENSE OF [facility] Last Admin: 12/03/16 09:24 Dose: Not Given Ondansetron HCl (Zofran Inj) 4 mg IVP Q6H PRN PRN Reason: Nausea/Vomiting Last Admin: 11/28/16 12:06 Dose: 4 mg Pantoprazole Sodium (Protonix Ec Tab) 40 mg PO DAILY ON LICENSE OF [facility] Last Admin: 12/03/16 09:23 Dose: 40 mg Saccharomyces Boulardii (Florastor) 250 mg PO BID ON LICENSE OF [facility] Last Admin: 12/03/16 09:19 Dose: 250 mg Sertraline HCl (Zoloft) 50 mg PO DAILY ON LICENSE OF [facility] Last Admin: 12/03/16 09:22 Dose: 50 mg Zolpidem Tartrate (Ambien) 5 mg PO HS PRN PRN Reason: Insomnia Last Admin: 12/02/16 23:56 Dose: 5 mg - Labs Labs: 12/03/16 13:32 12/03/16 07:08 PT 15.0 SECONDS (9.7-12.2) H 12/03/16 07:08 INR 1.3 12/03/16 07:08 APTT 37 SECONDS (21-34) H 12/03/16 07:08 Attending/Attestation - Attestation I have personally seen and examined this patient.: Yes I have fully participated in the care of the patient.: Yes I have reviewed all pertinent clinical information, including history, physical exam and plan: Yes Notes (Text): 12/03/16 17:21 Patient was seen and examined at bedside. He status post the Port-A-Cath placement Patient has bilateral pleural effusion. We have started patient on Lasix IV. We will also request her primary consultation for the patient Patient will be started on therapeutic Lovenox once the surgery clears for anticoagulation. I discussed the plan of care with the resident and agree with the assessment plan recommended by the resident.
[2016-12-03 13:36] LABS: BASO % 0.3 % (0.0-2.0); EOS % 0.2 % (0.0-4.0); HEMATOCRIT 24.3 % (35.0-51.0); LYMPH # 0.7 K/uL (1.0-4.3); LYMPH % 11.3 % (20.0-40.0); MEAN CELL VOLUME 76.6 fL (80.0-94.0); MEAN CORPUSCULAR HGB CONC 32.6 g/dL (33.0-37.0); MEAN PLATELET VOLUME 9.2 fL (7.2-11.7); MONO # 0.5 K/uL (0.0-0.8); MONO % 7.7 % (0.0-10.0); RED CELL DISTRIBUTION WIDTH 28.8 % (11.5-14.5)
[2016-12-03 13:45] LABS: WHITE BLOOD COUNT 6.2 K/uL (4.8-10.8)
[2016-12-03] MEDS: cefTRIAXone 2 GM in Sodium Chloride 0.9% 100 ML IVPB SCH (13:55)
[2016-12-03] MEDS: Magnesium Sulfate 1 gm in D5W 1 GM/100 ML BAG IVPB SCH ×2 (15:10→15:48)
[2016-12-03] MEDS ORDERED: Magnesium Sulfate 1 gm in D5W 1 GM/100 ML BAG IVPB SCH (16:00)
--- NOTE | 2016-12-03 16:44 | CP.PCM.CON ---
History of Present Illness - History of Present Illness History of Present Illness: Patient is a 66 y/o male with a past medical history of HTN, diabetes, and falls who was admitted on 11/16/16 with near-syncopal episode at home and coffee- ground emesis in the ED. Patient was subsequently found to have invasive adenocarcinoma of the rectosigmoid colon. Patient is POD #7 s/p ex-lap to remove mass, but was unable to be resected due to involvement of multiple areas of fixation, including the bladder wall. Patient agreed to chemotherapy and portacath placement. CXR on 12/02 revealed bilateral pleural effusions, right greater than left. Patient was placed on Lasix 40mg IVP Q12. Patient denies fever, chills, SOB, cough, hemoptysis, chest pain, N/V/D/C. 12/02 CXR: Left-sided PICC; Small right greater than left layering pleural effusions and associated atelectasis or infiltrates. 11/16 CT abd/pelvis: suspicious for sigmoid and proximal rectum mass lesion; Cystic mass at the pancreas suspicious for pseudo pancreatic cyst. Fat stranding surrounding the pancreatic tail; Large gallstones without evidence of acute cholecystitis 11/15 CXR: unremarkable; no active disease 11/25 ECHO: normal left ventricular systolic function with EF of 51%. 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; denies hx of tobacco, alcohol , or illicit drug use Family history: Father - (uncontrolled DM); Mother- (breast cancer with mets) Past Patient History - Past Medical History & Family History Past Medical History?: No - Past Social History Smoking Status: Never Smoked - CARDIAC Hx Hypertension: Yes - PULMONARY Hx Respiratory Disorders: No - NEUROLOGICAL Hx Neurological Disorder: No - HEENT Hx HEENT Problems: No - RENAL Hx Chronic Kidney Disease: No - ENDOCRINE/METABOLIC Hx Diabetes Mellitus Type 2: Yes - HEMATOLOGICAL/ONCOLOGICAL Hx Blood Disorders: No Hx Blood Transfusions: No - INTEGUMENTARY Hx Dermatological Problems: No - MUSCULOSKELETAL/RHEUMATOLOGICAL Hx Falls: Yes - GASTROINTESTINAL Hx Gastrointestinal Disorders: No - GENITOURINARY/GYNECOLOGICAL Hx Genitourinary Disorders: No - PSYCHIATRIC Hx Substance Use: No - SURGICAL HISTORY Hx Surgeries: Yes - ANESTHESIA Hx Anesthesia: Yes Hx Anesthesia Reactions: No Hx Malignant Hyperthermia: No Meds Allergies/Adverse Reactions: Allergies Allergy/AdvReac Type Severity Reaction Status Date / Time No Known Allergies Allergy Verified 11/15/16 21:27 - Medications Medications: Current Medications Enoxaparin Sodium (Lovenox) 90 mg SC Q12 [facility] Last Admin: 12/02/16 09:35 Dose: 90 mg Furosemide (Lasix) 20 mg IVP Q12 [facility] Gabapentin (Neurontin) 100 mg PO TID [facility] Last Admin: 12/03/16 13:54 Dose: 100 mg Hydromorphone HCl (Dilaudid) 0.5 mg IVP Q4H PRN PRN Reason: Pain, moderate (4-7) Last Admin: 11/26/16 23:28 Dose: 0.5 mg Hydroxyzine HCl (Atarax) 25 mg PO Q6 PRN PRN Reason: Anxiety Ceftriaxone Sodium 2 gm/ (Sodium Chloride) 100 mls @ 200 mls/hr IVPB Q24H [facility] Last Admin: 12/03/16 13:55 Dose: 200 mls/hr Insulin Aspart (Novolog) 0 unit SC ACHS [facility] PRN Reason: Protocol Last Admin: 12/03/16 11:30 Dose: Not Given Insulin Detemir (Levemir) 15 unit SC DAILY [facility] Last Admin: 12/03/16 09:24 Dose: Not Given Ondansetron HCl (Zofran Inj) 4 mg IVP Q6H PRN PRN Reason: Nausea/Vomiting Last Admin: 11/28/16 12:06 Dose: 4 mg Pantoprazole Sodium (Protonix Ec Tab) 40 mg PO DAILY [facility] Last Admin: 12/03/16 09:23 Dose: 40 mg Saccharomyces Boulardii (Florastor) 250 mg PO BID [facility] Last Admin: 12/03/16 09:19 Dose: 250 mg Sertraline HCl (Zoloft) 50 mg PO DAILY [facility] Last Admin: 12/03/16 09:22 Dose: 50 mg Zolpidem Tartrate (Ambien) 5 mg PO HS PRN PRN Reason: Insomnia Last Admin: 12/02/16 23:56 Dose: 5 mg Physical Exam - Head Exam Head Exam: ATRAUMATIC, NORMOCEPHALIC - Eye Exam Eye Exam: Normal appearance - ENT Exam ENT Exam: Mucous Membranes Moist - Neck Exam Neck exam: Positive for: Normal Inspection - Respiratory Exam Respiratory Exam: Decreased Breath Sounds - Cardiovascular Exam Cardiovascular Exam: REGULAR RHYTHM - GI/Abdominal Exam GI & Abdominal Exam: Normal Bowel Sounds, Soft Results - Vital Signs Recent Vital Signs: Last Vital Signs Temp 98.0 F 12/03/16 12:00 Pulse 89 12/03/16 16:09 Resp 10 L 12/03/16 12:00 BP 112/67 12/03/16 16:09 Pulse Ox 99 12/03/16 16:09 - Labs Result Diagrams: 12/04/16 06:53 12/04/16 06:53 Labs: Laboratory Results - last 24 hr 12/02/16 12/03/16 12/03/16 20:10 02:05 07:04 WBC RBC Hgb Hct MCV MCH MCHC RDW Plt Count MPV Neut % (Auto) Lymph % (Auto) Mcclain % (Auto) Eos % (Auto) Baso % (Auto) Neut # Lymph # Mcclain # Eos # Baso # Differential Comment PT INR APTT Sodium Potassium Chloride Carbon Dioxide Anion Gap BUN Creatinine Est GFR ( Amer) Est GFR (Non-Af Amer) POC Glucose (mg/dL) 234 H 282 H 279 H Random Glucose Calcium Phosphorus Magnesium Total Bilirubin AST ALT Alkaline Phosphatase Total Protein Albumin Globulin Albumin/Globulin Ratio 12/03/16 12/03/16 12/03/16 07:08 07:08 11:41 WBC RBC Hgb Hct MCV MCH MCHC RDW Plt Count MPV Neut % (Auto) Lymph % (Auto) Mcclain % (Auto) Eos % (Auto) Baso % (Auto) Neut # Lymph # Mcclain # Eos # Baso # Differential Comment PT 15.0 H INR 1.3 APTT 37 H Sodium 132 Potassium 3.8 Chloride 95 L Carbon Dioxide 31 H Anion Gap 10 BUN 15 Creatinine 0.6 L Est GFR ( Amer) > 60 Est GFR (Non-Af Amer) > 60 POC Glucose (mg/dL) 332 H Random Glucose 270 H Calcium 6.4 L Phosphorus 2.8 Magnesium 1.4 L Total Bilirubin 0.6 AST 17 D ALT 30 Alkaline Phosphatase 124 Total Protein 4.0 L Albumin 1.6 L Globulin 2.5 Albumin/Globulin Ratio 0.6 L 12/03/16 13:32 WBC 6.2 D RBC 3.18 L Hgb 7.9 L Hct 24.3 L MCV 76.6 L MCH 25.0 L MCHC 32.6 L RDW 28.8 H Plt Count 129 L D MPV 9.2 Neut % (Auto) 80.5 H Lymph % (Auto) 11.3 L Mcclain % (Auto) 7.7 Eos % (Auto) 0.2 Baso % (Auto) 0.3 Neut # 5.0 Lymph # 0.7 L Mcclain # 0.5 Eos # 0.0 Baso # 0.0 Differential Comment PT INR APTT Sodium Potassium Chloride Carbon Dioxide Anion Gap BUN Creatinine Est GFR ( Amer) Est GFR (Non-Af Amer) POC Glucose (mg/dL) Random Glucose Calcium Phosphorus Magnesium Total Bilirubin AST ALT Alkaline Phosphatase Total Protein Albumin Globulin Albumin/Globulin Ratio Assessment & Plan (1) Pleural effusion Status: Acute Comment: Bilateral pleural effusion on CAT scan of the chest most likely secondary to hypoalbuminemia. IR for thoracentesis. Improve nutritional status. Continue anticoagulation for DVT (2) Colon cancer Status: Acute (3) DVT (deep venous thrombosis) Status: Acute
--- NOTE | 2016-12-03 19:15 | CP.PCM.PN ---
Subjective - Date & Time of Evaluation Date of Evaluation: 12/03/16 Time of Evaluation: 12:00 - Subjective Subjective: No complaints, s/p portacath Objective - Vital Signs/Intake and Output Vital Signs (last 24 hours): Temp Pulse Resp BP Pulse Ox 98.9 F 89 20 112/67 99 12/03/16 15:00 12/03/16 16:09 12/03/16 15:00 12/03/16 16:09 12/03/16 16:09 Intake and Output: 12/03/16 12/04/16 18:59 06:59 Output Total 100 Balance -100 - Medications Medications: Current Medications Enoxaparin Sodium (Lovenox) 90 mg SC Q12 [facility] Last Admin: 12/02/16 09:35 Dose: 90 mg Furosemide (Lasix) 20 mg IVP Q12 [facility] Gabapentin (Neurontin) 100 mg PO TID [facility] Last Admin: 12/03/16 17:36 Dose: 100 mg Hydromorphone HCl (Dilaudid) 0.5 mg IVP Q4H PRN PRN Reason: Pain, moderate (4-7) Last Admin: 11/26/16 23:28 Dose: 0.5 mg Hydroxyzine HCl (Atarax) 25 mg PO Q6 PRN PRN Reason: Anxiety Ceftriaxone Sodium 2 gm/ (Sodium Chloride) 100 mls @ 200 mls/hr IVPB Q24H [facility] Last Admin: 12/03/16 13:55 Dose: 200 mls/hr Insulin Aspart (Novolog) 0 unit SC ACHS [facility] PRN Reason: Protocol Last Admin: 12/03/16 16:30 Dose: 10 unit Insulin Detemir (Levemir) 15 unit SC DAILY [facility] Last Admin: 12/03/16 09:24 Dose: Not Given Ondansetron HCl (Zofran Inj) 4 mg IVP Q6H PRN PRN Reason: Nausea/Vomiting Last Admin: 11/28/16 12:06 Dose: 4 mg Pantoprazole Sodium (Protonix Ec Tab) 40 mg PO DAILY [facility] Last Admin: 12/03/16 09:23 Dose: 40 mg Saccharomyces Boulardii (Florastor) 250 mg PO BID [facility] Last Admin: 12/03/16 17:33 Dose: 250 mg Sertraline HCl (Zoloft) 50 mg PO DAILY [facility] Last Admin: 12/03/16 09:22 Dose: 50 mg Zolpidem Tartrate (Ambien) 5 mg PO HS PRN PRN Reason: Insomnia Last Admin: 12/02/16 23:56 Dose: 5 mg - Labs Labs: 12/03/16 13:32 12/03/16 07:08 PT 15.0 SECONDS (9.7-12.2) H 12/03/16 07:08 INR 1.3 12/03/16 07:08 APTT 37 SECONDS (21-34) H 12/03/16 07:08 - Head Exam Head Exam: ATRAUMATIC - Eye Exam Eye Exam: Normal appearance - ENT Exam ENT Exam: Mucous Membranes Dry - Respiratory Exam Respiratory Exam: NORMAL BREATHING PATTERN - Cardiovascular Exam Cardiovascular Exam: +S1, +S2 - GI/Abdominal Exam GI & Abdominal Exam: Normal Bowel Sounds Assessment and Plan (1) Colon cancer Assessment & Plan: with bladder invasion outpatient chemotherapy Status: Acute (2) DVT (deep venous thrombosis) Assessment & Plan: thereapeutic anticoagulation Status: Acute (3) Anemia Assessment & Plan: transfuse 1 unit PRBC Status: Acute (4) Pancreatic lesion Assessment & Plan: biopsy negative for malignancy Status: Acute
--- NOTE | 2016-12-03 20:43 | CT ---
EXAM: CT Chest Without Intravenous Contrast CLINICAL HISTORY: 66 years old, male; Signs and symptoms and condition or disease; Other: Pleural effusion; Shortness of breath TECHNIQUE: Axial computed tomography images of the chest without intravenous contrast. This CT exam was performed using one or more of the following dose reduction techniques: automated exposure control, adjustment of the mA and/or kV according to patient size, and/or use of iterative reconstruction technique. Coronal and sagittal reformatted images were created and reviewed. EXAM DATE/TIME: Exam ordered 12/03/2016 2:04 PM COMPARISON: CT - CHEST,ABD,PEL W/IV CONT ONLY 11/16/2016 6:00:37 AM FINDINGS: A small hiatal hernia. Lungs: Compression atelectasis is noted in the dependent portion of both lungs. Pleural space: There are moderate sized bilateral pleural effusions. There is elevation of the right hemidiaphragm. No pneumothorax. Heart: Unremarkable. No cardiomegaly. No significant pericardial effusion. Bones/joints: Degenerative changes are noted of the thoracic spine. No acute fracture. No dislocation. Soft tissues: A Port-A-Cath has been implanted within the soft tissues of the right anterior chest wall. Small amount of subcutaneous air is noted adjacent to the device and within the right sternocleidomastoid muscle. Catheter tip is at the caval atrial junction. There is mild anasarca. Vasculature: Varices are noted in the lesser slack in the splenic hilum. No thoracic aortic aneurysm. Lymph nodes: Unremarkable. No enlarged lymph nodes. Gallbladder and bile ducts: Gallstones are present in the gallbladder. Pancreas: A fluid-containing structure with calcified mesa is noted in the region of the body and tail of the pancreas. Intraperitoneal space: Moderate of perihepatic ascites and perisplenic ascites is present. Tubes, lines and devices: The tip of a left PICC line terminates in the superior vena cava. IMPRESSION: 1. Interval development of moderate-sized pleural effusions and moderate perihepatic and perisplenic ascites. Mild compression atelectasis in the dependent portion of both lungs 2. Anasarca. 3. Gallstones. 4. Cystic mass noted within the body and tail the pancreas. Pancreatic pseudocyst is among the diagnostic considerations. 5. Varices noted within the lesser sac in the splenic hilum may be related to splenic vein thrombosis
[2016-12-04 07:26] LABS: BASO % 0.3 % (0.0-2.0); EOS % 0.4 % (0.0-4.0); HEMATOCRIT 23.8 % (35.0-51.0); LYMPH # 1.1 K/uL (1.0-4.3); LYMPH % 17.9 % (20.0-40.0); MEAN CELL VOLUME 77.4 fL (80.0-94.0); MEAN CORPUSCULAR HGB CONC 32.3 g/dL (33.0-37.0); MEAN PLATELET VOLUME 9.5 fL (7.2-11.7); MONO # 0.7 K/uL (0.0-0.8); MONO % 10.8 % (0.0-10.0); NRBC % 0.1 % (0.0-2.0); WHITE BLOOD COUNT 6.3 K/uL (4.8-10.8)
[2016-12-04 07:31] LABS: CHLORIDE 94 mmol/L (98-107); POTASSIUM 3.6 mmol/L (3.6-5.2); SODIUM 132 mmol/L (132-148)
[2016-12-04 07:33] LABS: ALB/GLOB RATIO 0.6 (1.0-2.1); ALKALINE PHOSPHATASE 116 U/L (38-126); ALT/SGPT 30 U/L (21-72); AST/SGOT 16 U/L (17-59); BILIRUBIN,TOTAL 0.8 mg/dL (0.2-1.3); BLOOD UREA NITROGEN 14 mg/dL (9-20); CARBON DIOXIDE 31 mmol/L (22-30); GFR AFRICAN-AMERICAN > 60; TOTAL PROTEIN 4.4 g/dL (6.3-8.3)
[2016-12-04 07:34] LABS: CALCIUM 6.6 mg/dl (8.6-10.4); GLUCOSE,RANDOM 216 mg/dL (75-110); MAGNESIUM 1.6 mg/dL (1.6-2.3); PHOSPHOROUS 2.5 mg/dL (2.5-4.5)
[2016-12-04] MEDS: Magnesium Sulfate 1 gm in D5W 1 GM/100 ML BAG IVPB SCH ×2 (07:57→07:58)
[2016-12-04] MEDS: (Novolog) Insulin Aspart, Recombinant 100 u/ml 10 ml vial SC SCH ×4 (08:16→22:08)
--- NOTE | 2016-12-04 08:25 | CP.PCM.PN ---
Subjective - Date & Time of Evaluation Date of Evaluation: 12/04/16 Time of Evaluation: 08:00 - Subjective Subjective: SURGERY NOTE FOR DR. BAIRD 66M seen and examined at bedside. Patient sitting up denies pain, tolerating regular diet. denies nausea, vomiting and bleeding. Objective - Vital Signs/Intake and Output Vital Signs (last 24 hours): Temp Pulse Resp BP Pulse Ox 98 F 104 H 20 116/62 97 12/04/16 08:07 12/04/16 08:07 12/04/16 08:07 12/04/16 08:07 12/04/16 08:07 Intake and Output: 12/04/16 12/04/16 06:59 18:59 Intake Total 500 Output Total 700 Balance -200 - Medications Medications: Current Medications Enoxaparin Sodium (Lovenox) 90 mg SC Q12 [facility] Last Admin: 12/02/16 09:35 Dose: 90 mg Furosemide (Lasix) 20 mg IVP Q12 [facility] Last Admin: 12/03/16 21:31 Dose: 20 mg Gabapentin (Neurontin) 100 mg PO TID [facility] Last Admin: 12/03/16 17:36 Dose: 100 mg Hydromorphone HCl (Dilaudid) 0.5 mg IVP Q4H PRN PRN Reason: Pain, moderate (4-7) Last Admin: 11/26/16 23:28 Dose: 0.5 mg Hydroxyzine HCl (Atarax) 25 mg PO Q6 PRN PRN Reason: Anxiety Ceftriaxone Sodium 2 gm/ (Sodium Chloride) 100 mls @ 200 mls/hr IVPB Q24H [facility] Last Admin: 12/03/16 13:55 Dose: 200 mls/hr Insulin Aspart (Novolog) 0 unit SC ACHS [facility] PRN Reason: Protocol Last Admin: 12/04/16 08:16 Dose: 3 unit Insulin Detemir (Levemir) 15 unit SC DAILY [facility] Last Admin: 12/03/16 09:24 Dose: Not Given Ondansetron HCl (Zofran Inj) 4 mg IVP Q6H PRN PRN Reason: Nausea/Vomiting Last Admin: 11/28/16 12:06 Dose: 4 mg Pantoprazole Sodium (Protonix Ec Tab) 40 mg PO DAILY [facility] Last Admin: 12/03/16 09:23 Dose: 40 mg Saccharomyces Boulardii (Florastor) 250 mg PO BID [facility] Last Admin: 12/03/16 17:33 Dose: 250 mg Sertraline HCl (Zoloft) 50 mg PO DAILY [facility] Last Admin: 12/03/16 09:22 Dose: 50 mg Zolpidem Tartrate (Ambien) 5 mg PO HS PRN PRN Reason: Insomnia Last Admin: 12/03/16 21:31 Dose: 5 mg - Labs Labs: 12/04/16 06:53 12/04/16 06:53 PT 15.0 SECONDS (9.7-12.2) H 12/03/16 07:08 INR 1.3 12/03/16 07:08 APTT 37 SECONDS (21-34) H 12/03/16 07:08 - Constitutional Appears: Non-toxic, No Acute Distress - Neck Exam Additional comments: asa cath in place - Respiratory Exam Respiratory Exam: Clear to Ausculation Bilateral, NORMAL BREATHING PATTERN - Cardiovascular Exam Cardiovascular Exam: REGULAR RHYTHM, +S1, +S2 - GI/Abdominal Exam GI & Abdominal Exam: Soft. absent: Distended, Firm, Guarding, Rigid, Tenderness , Rebound - Neurological Exam Neurological Exam: Alert, Awake - Skin Skin Exam: Dry, Intact, Normal Color, Warm Assessment and Plan - Assessment and Plan (Free Text) Assessment: 66 y/o male w/ colon adenocarcinoma, unresectable s/p right IJ portacath POD1, s /p ex-lap POD8 Plan: - monitor for bleeding - monitor incision site - monitor IJ site - Chemotherapy outpatient as per oncology - jody to be removed on Friday Further recs discuss with Dr. Brennan Ponce, PGY1
[2016-12-04] MEDS: Saccharomyces Boulardi 250 mg Cap PO SCH ×2 (09:11→17:04)
[2016-12-04] MEDS: Pantoprazole 40 mg EC Tab PO SCH (09:12)
--- NOTE | 2016-12-04 09:26 | CP.PCM.PN ---
<Simin Hall - Last Filed: 12/04/16 12:19> Subjective - Date & Time of Evaluation Date of Evaluation: 12/04/16 Time of Evaluation: 07:00 - Subjective Subjective: Medicine Note for Dr. Rivera Patient was seen and examined at bedside. Patient sitting up in bed, eating breakfast. No acute complaints. Denied any fever, chills, SOB, cough, abdominal pain, n/v/, or urinary symptoms. Objective - Vital Signs/Intake and Output Vital Signs (last 24 hours): Temp Pulse Resp BP Pulse Ox 98 F 104 H 20 116/62 97 12/04/16 08:07 12/04/16 08:07 12/04/16 08:07 12/04/16 09:10 12/04/16 08:07 Intake and Output: 12/04/16 12/04/16 06:59 18:59 Intake Total 500 Output Total 700 Balance -200 - Medications Medications: Current Medications Enoxaparin Sodium (Lovenox) 90 mg SC Q12 [facility] Last Admin: 12/02/16 09:35 Dose: 90 mg Furosemide (Lasix) 20 mg IVP Q12 [facility] Last Admin: 12/04/16 09:10 Dose: 20 mg Gabapentin (Neurontin) 100 mg PO TID [facility] Last Admin: 12/04/16 09:12 Dose: 100 mg Hydromorphone HCl (Dilaudid) 0.5 mg IVP Q4H PRN PRN Reason: Pain, moderate (4-7) Last Admin: 11/26/16 23:28 Dose: 0.5 mg Hydroxyzine HCl (Atarax) 25 mg PO Q6 PRN PRN Reason: Anxiety Ceftriaxone Sodium 2 gm/ (Sodium Chloride) 100 mls @ 200 mls/hr IVPB Q24H [facility] Last Admin: 12/03/16 13:55 Dose: 200 mls/hr Insulin Aspart (Novolog) 0 unit SC ACHS [facility] PRN Reason: Protocol Last Admin: 12/04/16 08:16 Dose: 3 unit Insulin Detemir (Levemir) 15 unit SC DAILY [facility] Last Admin: 12/03/16 09:24 Dose: Not Given Ondansetron HCl (Zofran Inj) 4 mg IVP Q6H PRN PRN Reason: Nausea/Vomiting Last Admin: 11/28/16 12:06 Dose: 4 mg Pantoprazole Sodium (Protonix Ec Tab) 40 mg PO DAILY [facility] Last Admin: 12/04/16 09:12 Dose: 40 mg Saccharomyces Boulardii (Florastor) 250 mg PO BID [facility] Last Admin: 12/04/16 09:11 Dose: 250 mg Sertraline HCl (Zoloft) 50 mg PO DAILY [facility] Last Admin: 12/04/16 09:12 Dose: 50 mg Zolpidem Tartrate (Ambien) 5 mg PO HS PRN PRN Reason: Insomnia Last Admin: 12/03/16 21:31 Dose: 5 mg - Labs Labs: 12/04/16 06:53 12/04/16 06:53 PT 15.0 SECONDS (9.7-12.2) H 12/03/16 07:08 INR 1.3 12/03/16 07:08 APTT 37 SECONDS (21-34) H 12/03/16 07:08 - Constitutional Appears: No Acute Distress - Head Exam Head Exam: NORMAL INSPECTION, NORMOCEPHALIC - Eye Exam Eye Exam: EOMI, Normal appearance, PERRL Pupil Exam: NORMAL ACCOMODATION - ENT Exam ENT Exam: Mucous Membranes Moist, Normal Exam - Respiratory Exam Respiratory Exam: Decreased Breath Sounds, NORMAL BREATHING PATTERN - Cardiovascular Exam Cardiovascular Exam: REGULAR RHYTHM, RRR, +S1, +S2 - GI/Abdominal Exam GI & Abdominal Exam: Soft, Normal Bowel Sounds. absent: Distended, Tenderness - Extremities Exam Extremities Exam: Normal Inspection, Pedal Edema. absent: Tenderness - Neurological Exam Neurological Exam: Alert, Awake, Oriented x3 Assessment and Plan - Assessment and Plan (Free Text) Plan: Chronic diarrhea Assessment & Plan: Secondary to 2/2 10 cm Unresectable Rectosigmoid Mass POD #1 RIJ Portacath insertion, s/p exploratory laparotomy POD#8, w/ findings of unresectable rectosigmoid mass. Surgery will remove abdominal incision jody on POD #10 which is Friday. 12/02/16 POD #6; Surgery will remove abdominal incision jody on POD #10. Surgery reconsulted for portacath placement. NPO past midnight tonight for OR tomorrow morning. 11/30/16: POD # 4: As per conversation with Dr. Lake Harris on 11/29/16, patient has decided to be DNR/DNI 11/29/16: POD #3. Patient is still undecided concerning further management. If he decides to proceed then he will need a Chemo Port placed. He has signed DNR/ DNI. I discussed patient's decision concerning further treatment with Dr. Willow Garcia on the night of 11/28/1611/28: s/p exploratory laparotomy POD2, w/ findings of unresectable rectosigmoid mass. Patient stated today he does not want the chemoport, he said he wants time to think about it. Patient appears tired and he does not want to make sudden decisions. No morning labs, blood draw was difficult this morning due to poor vein access. 11/27: s/p exploratory laparotomy POD1, w/ findings of unresectable rectosigmoid mass. Per surgery note, patient will need a portacath placement, time and date to be determined. Will stop heparin drip (tx for RUE deep vein thrombosis) 4 hours prior to portacath placement procedure. 11/26: Per certified surgical first assistant, the surgery today to resect patient's sigmoid mass was halted after it was determined the mass was too large/firm for removal. The patient will be treated with a neoadjuvant with hopes of shrinking the size of the tumor with possible surgery for removal at a later date. Patient was sent to ICU post OR for monitoring. 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 Due to lovenox longer half life, therapeutic lovenox was discontinued and heparin was started. Heparin 8000u iv bolus was given and heparin drip was started at 18u/kg/hr. This drip will be stopped at exactly 5am, 4 hours before surgery. 11/21: Pt s/p cystoscopy today. Patient found to have invasion to dome of urinary bladder. Surgery to plan for surgery some time next week 11/21: Per GI, Abdominal U/S obtained to rule out SV thrombosis given presence of gastroesopahgeal varices seen on endoscopic examination -> Abdominal U/S: 1. Hepatocellular disease without focal hepatic mass. 2. Patent portal venous system including splenic vein. 3. Cholelithiasis. No sonographic evidence of acute cholecystitis. 4. Cystic mass in the head of the pancreas. Remainder the pancreas is not visualized. 7/20: PICC placed today by IR DR Armando. 11/20: s/p upper EUS: "LA grade C erosive esophagitis. 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 75mm x 65mm psedocyst seen in pancreatic body, fine needle aspiration for fluid performed. Varices were visualized endosonographically in fundus of stomach". Will f/u cystology and CEA levels. 11/20: s/p venous duplex of upper extremities: "right: acute thrombosis of right subclavian, axillary and brachial veins with severe reduction of venous return. left: acute thrombosis of left cephatlic vein with severe reduction of venous return". Therapeutic lovenox started -> 90mg q12 sc. 11/20: s/p venous duplex of lower extremeties: negative 11/19: GI to perform EUS tomorrow. Advanced diet to liquid - will advance as tolerated. B/l upper and lower extremity duplex scans were ordered today. 11/18: Patient is s/p EGD/Colonoscopy. A 10cm partially obstructing sigmoid mass was seen and biopsied. Multiple polyps were seen and resected. Heme/Onc, Dr Garcia has been consulted, we will follow up with his recommendations. CT chest abdomen and pelvis findings as noted: suspected sigmoid and proximal rectum mass lesion without evidence of high grade bowel obstruction; suspected abscess formation; cystic mass lesion noted at pancreas with surrounding fat stranding of the pancreatic tail; large gallstones without evidence of acute cholecystitis GI consult (Dr. Srivastava)---> Help appreciated General Surgery Consult (Dr. Amin)----> Help appreciated Urology Consult (Dr. Jon)----> Help appreciated Stool culture negative for salmonella, shigella, campylobacter Stool leukocytes negative Ova and parasites not seen C. diffi toxin AB negative Status: Acute Acute deep vein thrombosis (DVT) of right upper extremity Assessment & Plan: Continue therapeutic Lovenox at 90 mg SC Q12H - was held due to surgery for portacath placement,RESUMED 11/29: Heparin Drip was discontinued on 11/28/16 as PTT could not be measured secondary to inability to draw blood from edematous arms and could not draw blood from left arm PICC for the PTT level due to the Heprin Drip being infused through the PICC. Therefore patient was restarted on therapeutic Lovenox at 90 mg SC Q12H 11/27: Heparin drip restarted at 18u/kg/hr. Heparin bolus 8,000u given prior to start of drip. 11/26: Per surgery, plan is to restart anticoagulant tomorrow morning Status: Acute Pleural Effusions CXR 12/02 compared to 11/15 --> B/L pleural effusions R>L. Placed on lasix 20mg IVP Q12. Pulmonology consulted, Dr. Mccormick - patient is for thoracentesis. IR reported not enough fluid for thoracentesis. Anemia of chronic disease Assessment & Plan: H/H was 7.11/28.4 - Consent retrieved- patient will be transfused 1 unit of PRBCs 11/26: After discussing with Heme/Onc Dr Garcia, since Ferritin is normal ferrlecit will not provide much benefit, will discontinue 11/25: Will start Ferrlecit 125mg iv daily after surgical procedure 11/25: Hgb stable at 8.6. Status: Acute Bacteremia Assessment & Plan: Continue on Ceftriaxone 2 gm IV Q24H for 14 days starting 11/29/16. Leukocytosis resolved. 11/30/17: As per ID, Repeat blood culture was negative, Primaxin and Flagyl was discontinued (11/29/16). Ceftriaxone 2 gm IV Q24H for 14 days starting 11/29/16 11/29/16: E. coli in blood culture on 11/15/16. Repeat blood culture on 11/23/16 was finalized as negative. I will speak with ID Dr. Burns concerning how much longer we need to continue the Primaxin and Flagyl 11/27: wbc trending down. afebrile. will continue primaxin and flagyl and monitor bands and wbc. Blood cultures negative after 3 days. 11/26: Patient in ICU for monitoring post OR, Bands 12 today, will monitor. 11/25: Blood cultures are negative after [address] Burns, con't tx for minimum of 14 days; Primaxin and Flagyl both started on 11/17. 11/19: HIV screen negative, Hep panel negative. Bands 26 today. 11/18: HIV 1&2 antibodies, Hep panel were ordered today. ID has been consulted, Dr Burns, we will follow his recommendations. 11/17: Changed to IV Primaxin 500mg IV Q6 Follow cultures. Currently blood pressure and HR stable. Nonfebrile. Continue with the IVF, monitor lowe outputs Status: Acute Uncontrolled diabetes mellitus Assessment & Plan: Recent HgbA1C: 11.5 (11/20/16) Accuchecks Aspart ISS - low Levemir 15 units SC HS---> restarted (11/30/16) as patient is now eating Hold glipizide Status: Chronic Esophageal abrasion Assessment & Plan: 11/18: Per endoscopy report * Ulcerated mucosa in the lower third of the esophagus was seen and biopsied. Medication: * Patient is on Protonix 40 mg PO BID. Status: Acute Pancreatic lesion Assessment & Plan: GI outpatient follow-up 11/26: Pancreatic cyst FNA negative for malignant cells per cytology report. 11/25: Per director of laboratory operations, EUS performed on 11/20 sampled pancreatic cyst fluid with diagnostic studies ordered for ptf amylase and ptf CEA only 11/20: Upper EUS performed today: "75mm x 65mm psedocyst seen in pancreatic body , fine needle aspiration for fluid performed 11/18: CT abd/pelvis shows cystic mass lesion at pancreas with fat stranding of pacreatic tail. Lipase level and lipid panel was ordered today. 11/17: CA 19-9 wnl Status: Acute Cholelithiasis Assessment & Plan: GI outpatient follow-up 11/18: CT abd/pelvis shows large gallstones without evidence of acute cholecystitis. Status: Acute Abnormal cardiovascular stress test Assessment & Plan: Cardiology outpatient follow-up 11/25: Nuclear Stress Test: Defect in mid-anteroseptal wall, defect in basal inferoseptal wall, fixed apical defect old IN, small defect inferior wall 11/25: ECHO: left ventricle systolic function is normal. EF is 50-55%. Status: Acute Prophylactic measure Assessment & Plan: Protonix 40 mg PO BID Lovenox 90mg IV q12H Florastor PO BID Ambien 5 mg PO HS Glucerna Shake 3 times a day help increase his protein level Physical Therapy started on 11/29/16 Status: Acute DW Rafael Stoddard DO, PGY-1 <Blanco Rivera - Last Filed: 12/04/16 17:50> Objective - Vital Signs/Intake and Output Vital Signs (last 24 hours): Temp Pulse Resp BP Pulse Ox 98 F 71 20 100/61 96 12/04/16 17:18 12/04/16 17:18 12/04/16 17:18 12/04/16 17:18 12/04/16 15:00 Intake and Output: 12/04/16 12/04/16 06:59 18:59 Intake Total 500 580 Output Total 700 2400 Balance -200 -1820 - Medications Medications: Current Medications Calcium/Vitamin D (Oyster Shell Calcium/Vitamin D 500 Mg-200 Iu) 1 tab PO DAILY [facility] Enoxaparin Sodium (Lovenox) 90 mg SC Q12 [facility] Last Admin: 12/04/16 10:00 Dose: Not Given Gabapentin (Neurontin) 100 mg PO TID [facility] Last Admin: 12/04/16 17:05 Dose: 100 mg Hydromorphone HCl (Dilaudid) 0.5 mg IVP Q4H PRN PRN Reason: Pain, moderate (4-7) Last Admin: 11/26/16 23:28 Dose: 0.5 mg Hydroxyzine HCl (Atarax) 25 mg PO Q6 PRN PRN Reason: Anxiety Ceftriaxone Sodium 2 gm/ (Sodium Chloride) 100 mls @ 200 mls/hr IVPB Q24H [facility] Last Admin: 12/04/16 12:35 Dose: 200 mls/hr Insulin Aspart (Novolog) 0 unit SC ACHS [facility] PRN Reason: Protocol Last Admin: 12/04/16 16:30 Dose: 3 unit Insulin Detemir (Levemir) 15 unit SC DAILY [facility] Last Admin: 12/04/16 10:00 Dose: Not Given Ondansetron HCl (Zofran Inj) 4 mg IVP Q6H PRN PRN Reason: Nausea/Vomiting Last Admin: 11/28/16 12:06 Dose: 4 mg Pantoprazole Sodium (Protonix Ec Tab) 40 mg PO DAILY [facility] Last Admin: 12/04/16 09:12 Dose: 40 mg Saccharomyces Boulardii (Florastor) 250 mg PO BID [facility] Last Admin: 12/04/16 17:04 Dose: 250 mg Sertraline HCl (Zoloft) 50 mg PO DAILY [facility] Last Admin: 12/04/16 09:12 Dose: 50 mg Zolpidem Tartrate (Ambien) 5 mg PO HS PRN PRN Reason: Insomnia Last Admin: 12/03/16 21:31 Dose: 5 mg - Labs Labs: 12/04/16 06:53 12/04/16 06:53 PT 15.0 SECONDS (9.7-12.2) H 12/03/16 07:08 INR 1.3 12/03/16 07:08 APTT 37 SECONDS (21-34) H 12/03/16 07:08 Attending/Attestation - Attestation I have personally seen and examined this patient.: Yes I have fully participated in the care of the patient.: Yes I have reviewed all pertinent clinical information, including history, physical exam and plan: Yes Notes (Text): 12/04/16 17:48 Patient was seen and examined at bedside with the resident Patient was sent to interventional radiology for thoracentesis but because of the paucity of fluid ,thoracentesis was not performed. We will restart the therapeutic anticoagulation with Lovenox of for acute DVT. Patient is anemic. We will transfuse 1 unit of blood today. Patient is tachycardic. We'll monitor for now. Port-A-Cath has been placed. Plan for chemotherapy as outpatient. Continue physical therapy daily. I discussed the plan of care with the resident and agree with the above history and physical and assessment/plan.
[2016-12-04] MEDS: Enoxaparin 100 mg Syringe SC SCH ×2 (10:00→22:15)
[2016-12-04] MEDS: Insulin Detemir 100 units/ml Vial (Levemir) SC SCH (10:00)
--- NOTE | 2016-12-04 11:39 | CP.PCM.PN ---
Subjective - Date & Time of Evaluation Date of Evaluation: 12/04/16 Time of Evaluation: 10:00 - Subjective Subjective: PGY3 on heme/onc Dr. Garcia service: Pt seen and examined at bedside. No complaints overnight. S/P Portacath placement POD#1 and ex-lap POD#8. Patient for thoracentesis today as per Pulm for pleural effusion. Objective - Vital Signs/Intake and Output Vital Signs (last 24 hours): Temp Pulse Resp BP Pulse Ox 98 F 104 H 20 116/62 97 12/04/16 08:07 12/04/16 08:07 12/04/16 08:07 12/04/16 09:10 12/04/16 08:07 Intake and Output: 12/04/16 12/04/16 06:59 18:59 Intake Total 500 Output Total 700 Balance -200 - Medications Medications: Current Medications Calcium/Vitamin D (Oyster Shell Calcium/Vitamin D 500 Mg-200 Iu) 1 tab PO DAILY [facility] Enoxaparin Sodium (Lovenox) 90 mg SC Q12 [facility] Last Admin: 12/02/16 09:35 Dose: 90 mg Furosemide (Lasix) 20 mg IVP Q12 [facility] Last Admin: 12/04/16 09:10 Dose: 20 mg Gabapentin (Neurontin) 100 mg PO TID [facility] Last Admin: 12/04/16 09:12 Dose: 100 mg Hydromorphone HCl (Dilaudid) 0.5 mg IVP Q4H PRN PRN Reason: Pain, moderate (4-7) Last Admin: 11/26/16 23:28 Dose: 0.5 mg Hydroxyzine HCl (Atarax) 25 mg PO Q6 PRN PRN Reason: Anxiety Ceftriaxone Sodium 2 gm/ (Sodium Chloride) 100 mls @ 200 mls/hr IVPB Q24H [facility] Last Admin: 12/03/16 13:55 Dose: 200 mls/hr Insulin Aspart (Novolog) 0 unit SC ACHS [facility] PRN Reason: Protocol Last Admin: 12/04/16 08:16 Dose: 3 unit Insulin Detemir (Levemir) 15 unit SC DAILY [facility] Last Admin: 12/03/16 09:24 Dose: Not Given Ondansetron HCl (Zofran Inj) 4 mg IVP Q6H PRN PRN Reason: Nausea/Vomiting Last Admin: 11/28/16 12:06 Dose: 4 mg Pantoprazole Sodium (Protonix Ec Tab) 40 mg PO DAILY [facility] Last Admin: 12/04/16 09:12 Dose: 40 mg Saccharomyces Boulardii (Florastor) 250 mg PO BID [facility] Last Admin: 12/04/16 09:11 Dose: 250 mg Sertraline HCl (Zoloft) 50 mg PO DAILY [facility] Last Admin: 12/04/16 09:12 Dose: 50 mg Zolpidem Tartrate (Ambien) 5 mg PO HS PRN PRN Reason: Insomnia Last Admin: 12/03/16 21:31 Dose: 5 mg - Labs Labs: 12/04/16 06:53 12/04/16 06:53 PT 15.0 SECONDS (9.7-12.2) H 12/03/16 07:08 INR 1.3 12/03/16 07:08 APTT 37 SECONDS (21-34) H 12/03/16 07:08 - Constitutional Appears: Non-toxic, No Acute Distress - Head Exam Head Exam: NORMAL INSPECTION, NORMOCEPHALIC - Eye Exam Eye Exam: Normal appearance Pupil Exam: NORMAL ACCOMODATION - Respiratory Exam Respiratory Exam: Clear to Ausculation Bilateral, NORMAL BREATHING PATTERN - Cardiovascular Exam Cardiovascular Exam: REGULAR RHYTHM, +S1, +S2 - Neurological Exam Neurological Exam: Alert, Awake, Oriented x3 Assessment and Plan - Assessment and Plan (Free Text) Assessment: (1) Colon cancer Assessment & Plan: with bladder invasion outpatient chemotherapy Status: Acute (2) DVT (deep venous thrombosis) Assessment & Plan: thereapeutic anticoagulation Status: Acute (3) Anemia Assessment & Plan: Secondary to chronic disease S/P transfusion 11/26 Status: Acute (4) Pancreatic lesion Assessment & Plan: biopsy negative for malignancy Status: Acute (5) Pleural effusion Assessment & Plan: Thoracentesis today Status: Acute
[2016-12-04] MEDS: cefTRIAXone 2 GM in Sodium Chloride 0.9% 100 ML IVPB SCH (12:35)
[2016-12-04] MEDS ORDERED: Sodium Chloride 0.9% 250 ML IV ONE (14:42)
--- NOTE | 2016-12-04 14:44 | CP.PCM.PN ---
Subjective - Date & Time of Evaluation Date of Evaluation: 12/04/16 Time of Evaluation: 10:00 - Subjective Subjective: Patient seen and examined. Status post Port-A-Cath insertion Patient lying comfortably in no distress Thoracentesis procedure canceled by IR for small effusion Afebrile Objective - Vital Signs/Intake and Output Vital Signs (last 24 hours): Temp Pulse Resp BP Pulse Ox 98 F 104 H 20 116/62 97 12/04/16 08:07 12/04/16 08:07 12/04/16 08:07 12/04/16 09:10 12/04/16 08:07 Intake and Output: 12/04/16 12/04/16 06:59 18:59 Intake Total 500 580 Output Total 700 1500 Balance -200 -920 - Medications Medications: Current Medications Calcium/Vitamin D (Oyster Shell Calcium/Vitamin D 500 Mg-200 Iu) 1 tab PO DAILY [facility] Enoxaparin Sodium (Lovenox) 90 mg SC Q12 [facility] Last Admin: 12/04/16 10:00 Dose: Not Given Furosemide (Lasix) 20 mg IVP Q12 [facility] Last Admin: 12/04/16 09:10 Dose: 20 mg Gabapentin (Neurontin) 100 mg PO TID [facility] Last Admin: 12/04/16 13:04 Dose: 100 mg Hydromorphone HCl (Dilaudid) 0.5 mg IVP Q4H PRN PRN Reason: Pain, moderate (4-7) Last Admin: 11/26/16 23:28 Dose: 0.5 mg Hydroxyzine HCl (Atarax) 25 mg PO Q6 PRN PRN Reason: Anxiety Ceftriaxone Sodium 2 gm/ (Sodium Chloride) 100 mls @ 200 mls/hr IVPB Q24H [facility] Last Admin: 12/04/16 12:35 Dose: 200 mls/hr Insulin Aspart (Novolog) 0 unit SC ACHS [facility] PRN Reason: Protocol Last Admin: 12/04/16 12:34 Dose: 8 unit Insulin Detemir (Levemir) 15 unit SC DAILY [facility] Last Admin: 12/04/16 10:00 Dose: Not Given Ondansetron HCl (Zofran Inj) 4 mg IVP Q6H PRN PRN Reason: Nausea/Vomiting Last Admin: 11/28/16 12:06 Dose: 4 mg Pantoprazole Sodium (Protonix Ec Tab) 40 mg PO DAILY [facility] Last Admin: 12/04/16 09:12 Dose: 40 mg Saccharomyces Boulardii (Florastor) 250 mg PO BID [facility] Last Admin: 12/04/16 09:11 Dose: 250 mg Sertraline HCl (Zoloft) 50 mg PO DAILY [facility] Last Admin: 12/04/16 09:12 Dose: 50 mg Zolpidem Tartrate (Ambien) 5 mg PO HS PRN PRN Reason: Insomnia Last Admin: 12/03/16 21:31 Dose: 5 mg - Labs Labs: 12/04/16 06:53 12/04/16 06:53 PT 15.0 SECONDS (9.7-12.2) H 12/03/16 07:08 INR 1.3 12/03/16 07:08 APTT 37 SECONDS (21-34) H 12/03/16 07:08 - Head Exam Head Exam: ATRAUMATIC, NORMOCEPHALIC - Eye Exam Eye Exam: Normal appearance - ENT Exam ENT Exam: Mucous Membranes Moist - Neck Exam Neck Exam: Normal Inspection - Respiratory Exam Respiratory Exam: Decreased Breath Sounds - Cardiovascular Exam Cardiovascular Exam: REGULAR RHYTHM Assessment and Plan (1) Pleural effusion Assessment & Plan: CAT scan of the chest consistent with bilateral pleural effusion secondary to hypoalbuminemia Improve nutritional status Not candidate for thoracentesis as per INR/small effusions Status: Acute (2) Colon cancer Status: Acute (3) DVT (deep venous thrombosis) Status: Acute
[2016-12-04] MEDS ORDERED: Albumin Human 25% (12.5 gm/50 ml) IV ONE (18:47)
--- NOTE | 2016-12-04 19:38 | CP.PCM.PN ---
Subjective - Date & Time of Evaluation Date of Evaluation: 12/04/16 Time of Evaluation: 18:42 - Subjective Subjective: Rapid Response Progress Note Rapid response was called at 18:42 to Room 353A where patient was found to have blood pressure of 81/47 while receiving 1 unit of PRBC. Patient was asymptomatic , denies headache, fever, palpitations, shortness of breath, or chest pain. Patient was complaining of feeling chills earlier during the day. Prior to RR overhead, attending physicians were already present at the bedside. IVF and PRBC were held. Albumin was administered. Objective - Vital Signs/Intake and Output Vital Signs (last 24 hours): Temp Pulse Resp BP Pulse Ox 99.5 F 110 H 20 78/52 L 96 12/04/16 18:35 12/04/16 18:35 12/04/16 18:35 12/04/16 18:35 12/04/16 15:00 Intake and Output: 12/04/16 12/05/16 18:59 06:59 Intake Total 580 Output Total 2400 Balance -1820 - Medications Medications: Current Medications Calcium/Vitamin D (Oyster Shell Calcium/Vitamin D 500 Mg-200 Iu) 1 tab PO DAILY [facility] Enoxaparin Sodium (Lovenox) 90 mg SC Q12 [facility] Last Admin: 12/04/16 10:00 Dose: Not Given Gabapentin (Neurontin) 100 mg PO TID [facility] Last Admin: 12/04/16 17:05 Dose: 100 mg Hydromorphone HCl (Dilaudid) 0.5 mg IVP Q4H PRN PRN Reason: Pain, moderate (4-7) Last Admin: 11/26/16 23:28 Dose: 0.5 mg Hydroxyzine HCl (Atarax) 25 mg PO Q6 PRN PRN Reason: Anxiety Ceftriaxone Sodium 2 gm/ (Sodium Chloride) 100 mls @ 200 mls/hr IVPB Q24H [facility] Last Admin: 12/04/16 12:35 Dose: 200 mls/hr Insulin Aspart (Novolog) 0 unit SC ACHS [facility] PRN Reason: Protocol Last Admin: 12/04/16 16:30 Dose: 3 unit Insulin Detemir (Levemir) 15 unit SC DAILY [facility] Last Admin: 12/04/16 10:00 Dose: Not Given Ondansetron HCl (Zofran Inj) 4 mg IVP Q6H PRN PRN Reason: Nausea/Vomiting Last Admin: 11/28/16 12:06 Dose: 4 mg Pantoprazole Sodium (Protonix Ec Tab) 40 mg PO DAILY [facility] Last Admin: 12/04/16 09:12 Dose: 40 mg Saccharomyces Boulardii (Florastor) 250 mg PO BID [facility] Last Admin: 12/04/16 17:04 Dose: 250 mg Sertraline HCl (Zoloft) 50 mg PO DAILY [facility] Last Admin: 12/04/16 09:12 Dose: 50 mg Zolpidem Tartrate (Ambien) 5 mg PO HS PRN PRN Reason: Insomnia Last Admin: 12/03/16 21:31 Dose: 5 mg - Labs Labs: 12/04/16 06:53 12/04/16 06:53 PT 15.0 SECONDS (9.7-12.2) H 12/03/16 07:08 INR 1.3 12/03/16 07:08 APTT 37 SECONDS (21-34) H 12/03/16 07:08 - Constitutional Appears: Non-toxic, No Acute Distress, Chronically Ill - Head Exam Head Exam: ATRAUMATIC, NORMAL INSPECTION, NORMOCEPHALIC - Eye Exam Eye Exam: EOMI, Normal appearance - ENT Exam ENT Exam: Mucous Membranes Moist - Respiratory Exam Respiratory Exam: Clear to Ausculation Bilateral, NORMAL BREATHING PATTERN. absent: Respiratory Distress - Cardiovascular Exam Cardiovascular Exam: Tachycardia, +S1, +S2 - GI/Abdominal Exam GI & Abdominal Exam: Soft, Normal Bowel Sounds. absent: Tenderness - Extremities Exam Extremities Exam: Pedal Edema. absent: Tenderness - Neurological Exam Neurological Exam: Alert, Awake, Oriented x3 - Psychiatric Exam Psychiatric exam: Normal Affect, Normal Mood - Skin Skin Exam: Dry, Intact, Warm Assessment and Plan - Assessment and Plan (Free Text) Assessment: Hypotension -Albumin 25% 12.5gm given -held PRBC transfusion, will resume once albumin completes -held IVF -Will continue to monitor vitals -Consider ICU admission, if unsolved -Case endorsed to night time attending and resident
[2016-12-05 01:38] LABS: BASO % 0.2 % (0.0-2.0); EOS % 0.7 % (0.0-4.0); HEMATOCRIT 24.4 % (35.0-51.0); LYMPH # 0.8 K/uL (1.0-4.3); LYMPH % 13.3 % (20.0-40.0); MEAN CELL VOLUME 78.3 fL (80.0-94.0); MEAN CORPUSCULAR HEMOGLOBIN 25.7 pg (27.0-31.0); MEAN CORPUSCULAR HGB CONC 32.8 g/dL (33.0-37.0); MEAN PLATELET VOLUME 8.9 fL (7.2-11.7); MONO # 0.8 K/uL (0.0-0.8); RED CELL DISTRIBUTION WIDTH 27.2 % (11.5-14.5); WHITE BLOOD COUNT 6.3 K/uL (4.8-10.8)
[2016-12-05 06:44] LABS: BASO % 0.1 % (0.0-2.0); EOS % 0.5 % (0.0-4.0); LYMPH # 0.9 K/uL (1.0-4.3); LYMPH % 14.6 % (20.0-40.0); MEAN CORPUSCULAR HEMOGLOBIN 25.4 pg (27.0-31.0); MEAN CORPUSCULAR HGB CONC 32.6 g/dL (33.0-37.0); MEAN PLATELET VOLUME 9.4 fL (7.2-11.7); MONO # 0.8 K/uL (0.0-0.8); MONO % 12.2 % (0.0-10.0); RED CELL DISTRIBUTION WIDTH 26.8 % (11.5-14.5); WHITE BLOOD COUNT 6.2 K/uL (4.8-10.8)
[2016-12-05 07:03] LABS: ALB/GLOB RATIO 0.7 (1.0-2.1); ALKALINE PHOSPHATASE 107 U/L (38-126); ALT/SGPT 26 U/L (21-72); AST/SGOT 17 U/L (17-59); BILIRUBIN,TOTAL 0.7 mg/dL (0.2-1.3); BLOOD UREA NITROGEN 15 mg/dL (9-20); CALCIUM 6.4 mg/dl (8.6-10.4); CARBON DIOXIDE 31 mmol/L (22-30); CHLORIDE 94 mmol/L (98-107); GFR AFRICAN-AMERICAN > 60; GLUCOSE,RANDOM 174 mg/dL (75-110); MAGNESIUM 1.7 mg/dL (1.6-2.3); PHOSPHOROUS 2.7 mg/dL (2.5-4.5); POTASSIUM 3.6 mmol/L (3.6-5.2); SODIUM 132 mmol/L (132-148); TOTAL PROTEIN 4.1 g/dL (6.3-8.3)
[2016-12-05] MEDS ORDERED: Albumin Human 25% (12.5 gm/50 ml) IV ONE (08:00)
[2016-12-05] MEDS: (Novolog) Insulin Aspart, Recombinant 100 u/ml 10 ml vial SC SCH ×4 (08:27→21:40)
[2016-12-05] MEDS: Enoxaparin 100 mg Syringe SC SCH ×2 (10:00→22:00)
[2016-12-05] MEDS: cefTRIAXone 2 GM in Sodium Chloride 0.9% 100 ML IVPB SCH (12:00)
[2016-12-05] MEDS: Saccharomyces Boulardi 250 mg Cap PO SCH ×2 (12:09→18:12)
[2016-12-05] MEDS: Pantoprazole 40 mg EC Tab PO SCH (12:10)
[2016-12-05] MEDS: Calcium-Vit D 500 mg-200 Units Tab UD PO SCH (12:10)
[2016-12-05] MEDS: Insulin Detemir 100 units/ml Vial (Levemir) SC SCH (12:13)
--- NOTE | 2016-12-05 13:14 | CP.PCM.PN ---
<Ni Halla - Last Filed: 12/05/16 13:10> Subjective - Date & Time of Evaluation Date of Evaluation: 12/05/16 Time of Evaluation: 07:00 - Subjective Subjective: Medicine Note for Dr. Rivera Patient was seen and examined at bedside. Patient reports he feels weak and fatigue, admits to a nonproductive cough. Denied any fever, chills, SOB, cough, abdominal pain, n/v/, or urinary symptoms. Objective - Vital Signs/Intake and Output Vital Signs (last 24 hours): Temp Pulse Resp BP Pulse Ox 97.8 F 100 H 18 100/67 99 12/05/16 12:57 12/05/16 12:57 12/05/16 12:57 12/05/16 12:57 12/05/16 07:44 Intake and Output: 12/05/16 12/05/16 06:59 18:59 Intake Total 555 0 Output Total 301 Balance 254 0 - Medications Medications: Current Medications Calcium/Vitamin D (Oyster Shell Calcium/Vitamin D 500 Mg-200 Iu) 1 tab PO DAILY [facility] Last Admin: 12/05/16 12:10 Dose: 1 tab Enoxaparin Sodium (Lovenox) 90 mg SC Q12 [facility] Last Admin: 12/05/16 10:00 Dose: 90 mg Gabapentin (Neurontin) 100 mg PO TID [facility] Last Admin: 12/05/16 10:00 Dose: 100 mg Hydromorphone HCl (Dilaudid) 0.5 mg IVP Q4H PRN PRN Reason: Pain, moderate (4-7) Last Admin: 11/26/16 23:28 Dose: 0.5 mg Hydroxyzine HCl (Atarax) 25 mg PO Q6 PRN PRN Reason: Anxiety Ceftriaxone Sodium 2 gm/ (Sodium Chloride) 100 mls @ 200 mls/hr IVPB Q24H [facility] Last Admin: 12/05/16 12:00 Dose: 200 mls/hr Insulin Aspart (Novolog) 0 unit SC ACHS [facility] PRN Reason: Protocol Last Admin: 12/05/16 08:27 Dose: 3 unit Insulin Detemir (Levemir) 15 unit SC DAILY [facility] Last Admin: 12/05/16 12:13 Dose: 15 unit Ondansetron HCl (Zofran Inj) 4 mg IVP Q6H PRN PRN Reason: Nausea/Vomiting Last Admin: 11/28/16 12:06 Dose: 4 mg Pantoprazole Sodium (Protonix Ec Tab) 40 mg PO DAILY [facility] Last Admin: 12/05/16 12:10 Dose: 40 mg Saccharomyces Boulardii (Florastor) 250 mg PO BID [facility] Last Admin: 12/05/16 12:09 Dose: 250 mg Sertraline HCl (Zoloft) 50 mg PO DAILY [facility] Last Admin: 12/05/16 12:10 Dose: 50 mg Zolpidem Tartrate (Ambien) 5 mg PO HS PRN PRN Reason: Insomnia Last Admin: 12/03/16 21:31 Dose: 5 mg - Labs Labs: 12/05/16 06:17 12/05/16 06:17 PT 15.0 SECONDS (9.7-12.2) H 12/03/16 07:08 INR 1.3 12/03/16 07:08 APTT 37 SECONDS (21-34) H 12/03/16 07:08 - Constitutional Appears: No Acute Distress, Chronically Ill (ANARSARCA ) - Head Exam Head Exam: NORMAL INSPECTION, NORMOCEPHALIC - Eye Exam Eye Exam: EOMI, Normal appearance, PERRL Pupil Exam: NORMAL ACCOMODATION - ENT Exam ENT Exam: Mucous Membranes Moist, Normal Exam - Neck Exam Neck Exam: Normal Inspection - Respiratory Exam Respiratory Exam: Decreased Breath Sounds, NORMAL BREATHING PATTERN Additional comments: less decreased since prior days, minor crackles. - Cardiovascular Exam Cardiovascular Exam: REGULAR RHYTHM, RRR - GI/Abdominal Exam GI & Abdominal Exam: Soft, Normal Bowel Sounds. absent: Distended, Tenderness - Extremities Exam Extremities Exam: Normal Inspection, Pedal Edema. absent: Tenderness - Neurological Exam Neurological Exam: Alert, Awake, Oriented x3 - Psychiatric Exam Psychiatric exam: Normal Affect, Normal Mood - Skin Skin Exam: Dry, Intact, Normal Color, Warm Assessment and Plan - Assessment and Plan (Free Text) Plan: Chronic diarrhea Assessment & Plan: Secondary to 2/2 10 cm Unresectable Rectosigmoid Mass POD #2 RIJ Portacath insertion, s/p exploratory laparotomy POD#9, w/ findings of unresectable rectosigmoid mass. Surgery will remove abdominal incision jody on POD #10 which is Friday. 12/02/16 POD #6; Surgery will remove abdominal incision jody on POD #10. Surgery reconsulted for portacath placement. NPO past midnight tonight for OR tomorrow morning. 11/30/16: POD # 4: As per conversation with Dr. Lake Harris on 11/29/16, patient has decided to be DNR/DNI 11/29/16: POD #3. Patient is still undecided concerning further management. If he decides to proceed then he will need a Chemo Port placed. He has signed DNR/ DNI. I discussed patient's decision concerning further treatment with Dr. Willow Garcia on the night of 11/28/1611/28: s/p exploratory laparotomy POD2, w/ findings of unresectable rectosigmoid mass. Patient stated today he does not want the chemoport, he said he wants time to think about it. Patient appears tired and he does not want to make sudden decisions. No morning labs, blood draw was difficult this morning due to poor vein access. 11/27: s/p exploratory laparotomy POD1, w/ findings of unresectable rectosigmoid mass. Per surgery note, patient will need a portacath placement, time and date to be determined. Will stop heparin drip (tx for RUE deep vein thrombosis) 4 hours prior to portacath placement procedure. 11/26: Per regional vice president surgical sales, the surgery today to resect patient's sigmoid mass was halted after it was determined the mass was too large/firm for removal. The patient will be treated with a neoadjuvant with hopes of shrinking the size of the tumor with possible surgery for removal at a later date. Patient was sent to ICU post OR for monitoring. 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 Due to lovenox longer half life, therapeutic lovenox was discontinued and heparin was started. Heparin 8000u iv bolus was given and heparin drip was started at 18u/kg/hr. This drip will be stopped at exactly 5am, 4 hours before surgery. 11/21: Pt s/p cystoscopy today. Patient found to have invasion to dome of urinary bladder. Surgery to plan for surgery some time next week 11/21: Per GI, Abdominal U/S obtained to rule out SV thrombosis given presence of gastroesopahgeal varices seen on endoscopic examination -> Abdominal U/S: 1. Hepatocellular disease without focal hepatic mass. 2. Patent portal venous system including splenic vein. 3. Cholelithiasis. No sonographic evidence of acute cholecystitis. 4. Cystic mass in the head of the pancreas. Remainder the pancreas is not visualized. 11/21: PICC placed today by IR DR Armando. 11/20: s/p upper EUS: "LA grade C erosive esophagitis. 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 75mm x 65mm psedocyst seen in pancreatic body, fine needle aspiration for fluid performed. Varices were visualized endosonographically in fundus of stomach". Will f/u cystology and CEA levels. 11/20: s/p venous duplex of upper extremities: "right: acute thrombosis of right subclavian, axillary and brachial veins with severe reduction of venous return. left: acute thrombosis of left cephatlic vein with severe reduction of venous return". Therapeutic lovenox started -> 90mg q12 sc. 11/20: s/p venous duplex of lower extremeties: negative 11/19: GI to perform EUS tomorrow. Advanced diet to liquid - will advance as tolerated. B/l upper and lower extremity duplex scans were ordered today. 11/18: Patient is s/p EGD/Colonoscopy. A 10cm partially obstructing sigmoid mass was seen and biopsied. Multiple polyps were seen and resected. Heme/Onc, Dr Garcia has been consulted, we will follow up with his recommendations. CT chest abdomen and pelvis findings as noted: suspected sigmoid and proximal rectum mass lesion without evidence of high grade bowel obstruction; suspected abscess formation; cystic mass lesion noted at pancreas with surrounding fat stranding of the pancreatic tail; large gallstones without evidence of acute cholecystitis GI consult (Dr. Srivastava)---> Help appreciated General Surgery Consult (Dr. Amin)----> Help appreciated Urology Consult (Dr. Jon)----> Help appreciated Stool culture negative for salmonella, shigella, campylobacter Stool leukocytes negative Ova and parasites not seen C. diffi toxin AB negative Status: Acute Acute deep vein thrombosis (DVT) of right upper extremity Assessment & Plan: Continue therapeutic Lovenox at 90 mg SC Q12H - RESUMED 11/29: Heparin Drip was discontinued on 11/28/16 as PTT could not be measured secondary to inability to draw blood from edematous arms and could not draw blood from left arm PICC for the PTT level due to the Heprin Drip being infused through the PICC. Therefore patient was restarted on therapeutic Lovenox at 90 mg SC Q12H 11/27: Heparin drip restarted at 18u/kg/hr. Heparin bolus 8,000u given prior to start of drip. 11/26: Per surgery, plan is to restart anticoagulant tomorrow morning Status: Acute Pleural Effusions CXR 12/02 compared to 11/15 --> B/L pleural effusions R>L. Placed on lasix 20mg IVP Q12. Pulmonology consulted, Dr. Mccormick - patient is for thoracentesis. IR reported not enough fluid for thoracentesis. Anemia of chronic disease Assessment & Plan: BAR WELDER was called on patient last night due hypotension. Lasix was discontinued. He was given a fluid bolus, albumin and continued with the 1 unit of PRBCs. Patient was given albumin again today. And will be transfused another unit of PRBCs due to hemoglobin of 7.8. H/H was 7.7/27.4 - Consent retrieved- patient will be transfused 1 unit of PRBCs 11/26: After discussing with Heme/Onc Dr Garcia, since Ferritin is normal ferrlecit will not provide much benefit, will discontinue 11/25: Will start Ferrlecit 125mg iv daily after surgical procedure 11/25: Hgb stable at 8.6. Status: Acute Bacteremia Assessment & Plan: Continue on Ceftriaxone 2 gm IV Q24H for 14 days starting 11/29/16. Leukocytosis resolved. 11/30/17: As per ID, Repeat blood culture was negative, Primaxin and Flagyl was discontinued (11/29/16). Ceftriaxone 2 gm IV Q24H for 14 days starting 11/29/16 11/29/16: E. coli in blood culture on 11/15/16. Repeat blood culture on 11/23/16 was finalized as negative. I will speak with ID Dr. Burns concerning how much longer we need to continue the Primaxin and Flagyl 11/27: wbc trending down. afebrile. will continue primaxin and flagyl and monitor bands and wbc. Blood cultures negative after 3 days. 11/26: Patient in ICU for monitoring post OR, Bands 12 today, will monitor. 11/25: Blood cultures are negative after [address] Burns, con't tx for minimum of 14 days; Primaxin and Flagyl both started on 11/17. 11/19: HIV screen negative, Hep panel negative. Bands 26 today. 11/18: HIV 1&2 antibodies, Hep panel were ordered today. ID has been consulted, Dr Burns, we will follow his recommendations. 11/17: Changed to IV Primaxin 500mg IV Q6 Follow cultures. Currently blood pressure and HR stable. Nonfebrile. Continue with the IVF, monitor lowe outputs Status: Acute Uncontrolled diabetes mellitus Assessment & Plan: Recent HgbA1C: 11.5 (11/20/16) Accuchecks Aspart ISS - low Levemir 15 units SC HS---> restarted (11/30/16) as patient is now eating Hold glipizide Status: Chronic Esophageal abrasion Assessment & Plan: 11/18: Per endoscopy report * Ulcerated mucosa in the lower third of the esophagus was seen and biopsied. Medication: * Patient is on Protonix 40 mg PO BID. Status: Acute Pancreatic lesion Assessment & Plan: GI outpatient follow-up 11/26: Pancreatic cyst FNA negative for malignant cells per cytology report. 11/25: Per irrigation laborer, EUS performed on 11/20 sampled pancreatic cyst fluid with diagnostic studies ordered for ptf amylase and ptf CEA only 11/20: Upper EUS performed today: "75mm x 65mm psedocyst seen in pancreatic body , fine needle aspiration for fluid performed 11/18: CT abd/pelvis shows cystic mass lesion at pancreas with fat stranding of pacreatic tail. Lipase level and lipid panel was ordered today. 11/17: CA 19-9 wnl Status: Acute Cholelithiasis Assessment & Plan: GI outpatient follow-up 11/18: CT abd/pelvis shows large gallstones without evidence of acute cholecystitis. Status: Acute Abnormal cardiovascular stress test Assessment & Plan: Cardiology outpatient follow-up 11/25: Nuclear Stress Test: Defect in mid-anteroseptal wall, defect in basal inferoseptal wall, fixed apical defect old FL, small defect inferior wall 11/25: ECHO: left ventricle systolic function is normal. EF is 50-55%. Status: Acute Prophylactic measure Assessment & Plan: Protonix 40 mg PO BID Lovenox 90mg IV q12H Florastor PO BID Ambien 5 mg PO HS Glucdanitza [place] 3 times a day help increase his protein level Physical Therapy started on 11/29/16 Status: Acute Disposition: Patient will be discharged home was medically stable and instructed to follow up with the [facility] for a referral for Dr. Garcia to have outpatient chemotherapy. DW Rafael Stoddard DO, PGY-1 <Blanco Rivera M - Last Filed: 12/06/16 10:01> Objective - Vital Signs/Intake and Output Vital Signs (last 24 hours): Temp Pulse Resp BP Pulse Ox 97.6 F 106 H 20 91/56 L 98 12/06/16 08:51 12/06/16 08:51 12/06/16 08:51 12/06/16 08:51 12/06/16 08:51 Intake and Output: 12/06/16 12/06/16 06:59 18:59 Intake Total 1100 Output Total 950 Balance 150 - Medications Medications: Current Medications Calcium/Vitamin D (Oyster Shell Calcium/Vitamin D 500 Mg-200 Iu) 1 tab PO DAILY [facility] Last Admin: 12/05/16 12:10 Dose: 1 tab Enoxaparin Sodium (Lovenox) 90 mg SC Q12 [facility] Last Admin: 12/05/16 22:00 Dose: 90 mg Gabapentin (Neurontin) 100 mg PO TID [facility] Last Admin: 12/05/16 18:12 Dose: 100 mg Hydromorphone HCl (Dilaudid) 0.5 mg IVP Q4H PRN PRN Reason: Pain, moderate (4-7) Last Admin: 11/26/16 23:28 Dose: 0.5 mg Hydroxyzine HCl (Atarax) 25 mg PO Q6 PRN PRN Reason: Anxiety Ceftriaxone Sodium 2 gm/ (Sodium Chloride) 100 mls @ 200 mls/hr IVPB Q24H [facility] Last Admin: 12/05/16 12:00 Dose: 200 mls/hr Dextrose (Dextrose 5% In Water 1000 Ml) 1,000 mls @ 40 mls/hr IV .Q24H [facility] Last Admin: 12/06/16 05:40 Dose: 40 mls/hr Insulin Aspart (Novolog) 0 unit SC ACHS [facility] PRN Reason: Protocol Last Admin: 12/06/16 08:00 Dose: Not Given Insulin Detemir (Levemir) 15 unit SC DAILY [facility] Last Admin: 12/05/16 12:13 Dose: 15 unit Midodrine (Proamatine) 2.5 mg PO TID [facility] Ondansetron HCl (Zofran Inj) 4 mg IVP Q6H PRN PRN Reason: Nausea/Vomiting Last Admin: 11/28/16 12:06 Dose: 4 mg Pantoprazole Sodium (Protonix Ec Tab) 40 mg PO DAILY [facility] Last Admin: 12/05/16 12:10 Dose: 40 mg Potassium Chloride (K-Dur 20 Meq Er Tab) 40 meq PO ONCE ONE Stop: 12/06/16 10:01 Potassium Phos/Sodium Phos (Neutra-Phos) 1 pkt PO TID [facility] Stop: 12/08/16 23:59 Saccharomyces Boulardii (Florastor) 250 mg PO BID [facility] Last Admin: 12/05/16 18:12 Dose: 250 mg Sertraline HCl (Zoloft) 50 mg PO DAILY [facility] Last Admin: 12/05/16 12:10 Dose: 50 mg Zolpidem Tartrate (Ambien) 5 mg PO HS PRN PRN Reason: Insomnia Last Admin: 12/03/16 21:31 Dose: 5 mg - Labs Labs: 12/06/16 07:20 12/06/16 07:20 PT 15.0 SECONDS (9.7-12.2) H 12/03/16 07:08 INR 1.3 12/03/16 07:08 APTT 37 SECONDS (21-34) H 12/03/16 07:08 Attending/Attestation - Attestation I have personally seen and examined this patient.: Yes I have fully participated in the care of the patient.: Yes I have reviewed all pertinent clinical information, including history, physical exam and plan: Yes Notes (Text): 12/06/16 10:00 Patient was seen and examined at bedside. Patient appeared comfortable. Patient remains hypotensive. We will administer another dose of for albumin. Patient will also receive a one unit of PRBC because of anemia We will continue to monitor the patient to on the telemetry unit Patient will be evaluated by physical therapy. I discussed the plan of care with the resident agree with the above history and physical and assessment/plan documented.
--- NOTE | 2016-12-05 13:39 | OP ---
PROCEDURE DATE: 12/03/2016 SURGEON: Dr. Amin. BOILER ATTENDANT: Dr. Whitaker. ANESTHESIA: IV sedation. PREOPERATIVE DIAGNOSIS: Colon cancer. POSTOPERATIVE DIAGNOSIS: Colon cancer. PROCEDURE: Right internal jugular Port-A-Cath insertion. DESCRIPTION OF OPERATION: With the patient in the supine position, having received IV sedation, the right upper chest and neck were prepped and draped in the usual sterile manner. The patient had a recently diagnosed right subclavian vein thrombosis, so a jugular approach was indicated. The area at the junction of the 2 heads of the sternocleidomastoid muscle was infiltrated with 1% lidocaine, and a jugular vein puncture was performed. A guidewire was passed. The position was checked with C-arm. Additional 1% lidocaine was infiltrated over the right pectoral region and along the pathway between the presumed pocket site and the jugular insertion site, and a subcutaneous pocket was created in the right pectoral region. The catheter was tunneled from the pocket site to the insertion site. The main dilator and introducer were passed over the guidewire and noted to be positioned in the superior vena cava with serum. The guidewire and dilator were removed, and the catheter was passed and positioned in the lower portion of the right superior vena cava. The introducer was removed. The catheter was trimmed at 20 cm from the tip and fixed to the reservoir using the fixation device. The catheter system was aspirated for blood return and flushed with heparinized saline. The reservoir was placed into the previously created pocket and suture to the pectoral fascia with a 3-0 Prolene suture. The pocket was then closed with running sutures of 4-0 Monocryl and Steri-Strips. Dry sterile dressing was applied. The patient tolerated the procedure well and transferred to recovery room in stable condition. Estimated blood loss for the procedure was 5 mL. Rose Amin MD MTDD
--- NOTE | 2016-12-05 18:09 | CP.PCM.PN ---
Subjective - Date & Time of Evaluation Date of Evaluation: 12/05/16 Time of Evaluation: 15:25 - Subjective Subjective: No complaints, s/p PRBC transfusion Objective - Vital Signs/Intake and Output Vital Signs (last 24 hours): Temp Pulse Resp BP Pulse Ox 98.5 F 101 H 20 98/65 L 98 12/05/16 16:00 12/05/16 16:00 12/05/16 16:00 12/05/16 16:00 12/05/16 16:00 Intake and Output: 12/05/16 12/05/16 06:59 18:59 Intake Total 555 375 Output Total 301 Balance 254 375 - Medications Medications: Current Medications Calcium/Vitamin D (Oyster Shell Calcium/Vitamin D 500 Mg-200 Iu) 1 tab PO DAILY [facility] Last Admin: 12/05/16 12:10 Dose: 1 tab Enoxaparin Sodium (Lovenox) 90 mg SC Q12 [facility] Last Admin: 12/05/16 10:00 Dose: 90 mg Gabapentin (Neurontin) 100 mg PO TID [facility] Last Admin: 12/05/16 15:00 Dose: 100 mg Hydromorphone HCl (Dilaudid) 0.5 mg IVP Q4H PRN PRN Reason: Pain, moderate (4-7) Last Admin: 11/26/16 23:28 Dose: 0.5 mg Hydroxyzine HCl (Atarax) 25 mg PO Q6 PRN PRN Reason: Anxiety Ceftriaxone Sodium 2 gm/ (Sodium Chloride) 100 mls @ 200 mls/hr IVPB Q24H [facility] Last Admin: 12/05/16 12:00 Dose: 200 mls/hr Insulin Aspart (Novolog) 0 unit SC ACHS [facility] PRN Reason: Protocol Last Admin: 12/05/16 13:19 Dose: 4 unit Insulin Detemir (Levemir) 15 unit SC DAILY [facility] Last Admin: 12/05/16 12:13 Dose: 15 unit Ondansetron HCl (Zofran Inj) 4 mg IVP Q6H PRN PRN Reason: Nausea/Vomiting Last Admin: 11/28/16 12:06 Dose: 4 mg Pantoprazole Sodium (Protonix Ec Tab) 40 mg PO DAILY [facility] Last Admin: 12/05/16 12:10 Dose: 40 mg Saccharomyces Boulardii (Florastor) 250 mg PO BID [facility] Last Admin: 12/05/16 12:09 Dose: 250 mg Sertraline HCl (Zoloft) 50 mg PO DAILY [facility] Last Admin: 12/05/16 12:10 Dose: 50 mg Zolpidem Tartrate (Ambien) 5 mg PO HS PRN PRN Reason: Insomnia Last Admin: 12/03/16 21:31 Dose: 5 mg - Labs Labs: 12/05/16 06:17 12/05/16 06:17 PT 15.0 SECONDS (9.7-12.2) H 12/03/16 07:08 INR 1.3 12/03/16 07:08 APTT 37 SECONDS (21-34) H 12/03/16 07:08 - Head Exam Head Exam: ATRAUMATIC - Eye Exam Eye Exam: Normal appearance - ENT Exam ENT Exam: Mucous Membranes Dry - Respiratory Exam Respiratory Exam: NORMAL BREATHING PATTERN - Cardiovascular Exam Cardiovascular Exam: +S1, +S2 - GI/Abdominal Exam GI & Abdominal Exam: Normal Bowel Sounds - Extremities Exam Extremities Exam: Pedal Edema Assessment and Plan (1) Colon cancer Assessment & Plan: with bladder extension for outpatient neoadjuvant chemotherapy Status: Acute (2) DVT (deep venous thrombosis) Assessment & Plan: on anticoagulation Status: Acute (3) Anemia Assessment & Plan: chronic disease s/p PRBC transfusion Status: Acute (4) Pancreatic lesion Assessment & Plan: biopsy negative for malignancy Status: Acute
[2016-12-06] MEDS ORDERED: Dextrose 50% SYRINGE Inj (50 ml) IV STA (02:47)
[2016-12-06 07:44] LABS: BASO % 0.3 % (0.0-2.0); EOS % 0.2 % (0.0-4.0); HEMATOCRIT 28.4 % (35.0-51.0); LYMPH # 0.7 K/uL (1.0-4.3); LYMPH % 8.6 % (20.0-40.0); MEAN CELL VOLUME 78.4 fL (80.0-94.0); MEAN CORPUSCULAR HEMOGLOBIN 26.1 pg (27.0-31.0); MEAN CORPUSCULAR HGB CONC 33.3 g/dL (33.0-37.0); MEAN PLATELET VOLUME 9.2 fL (7.2-11.7); MONO # 0.7 K/uL (0.0-0.8); MONO % 8.3 % (0.0-10.0); PLATELET COUNT 145 K/uL (130-400); RED CELL DISTRIBUTION WIDTH 24.5 % (11.5-14.5); WHITE BLOOD COUNT 8.3 K/uL (4.8-10.8)
[2016-12-06 08:00] LABS: CHLORIDE 94 mmol/L (98-107); POTASSIUM 3.2 mmol/L (3.6-5.2); SODIUM 132 mmol/L (132-148)
[2016-12-06] MEDS: (Novolog) Insulin Aspart, Recombinant 100 u/ml 10 ml vial SC SCH ×4 (08:00→22:00)
[2016-12-06 08:02] LABS: ALB/GLOB RATIO 0.6 (1.0-2.1); ALKALINE PHOSPHATASE 152 U/L (38-126); ALT/SGPT 27 U/L (21-72); AST/SGOT 33 U/L (17-59); BILIRUBIN,TOTAL 0.7 mg/dL (0.2-1.3); BLOOD UREA NITROGEN 15 mg/dL (9-20); CARBON DIOXIDE 29 mmol/L (22-30); GFR AFRICAN-AMERICAN > 60; TOTAL PROTEIN 4.4 g/dL (6.3-8.3)
[2016-12-06 08:03] LABS: CALCIUM 6.6 mg/dl (8.6-10.4); GLUCOSE,RANDOM 73 mg/dL (75-110); MAGNESIUM 1.6 mg/dL (1.6-2.3); PHOSPHOROUS 2.4 mg/dL (2.5-4.5)
--- NOTE | 2016-12-06 08:03 | CP.PCM.PCO ---
Physician Communication Note - Physician Communication Note Physician Communication Note: Doron removed at bedside this AM. No acute surgery intervention
[2016-12-06] MEDS ORDERED: Potassium Chloride 20 mEq ER Tab PO ONE (10:00)
[2016-12-06 10:32] LABS: NEUTROPHIL 58 % (50-75); TOTAL CELLS COUNTED 100
[2016-12-06] MEDS: Enoxaparin 100 mg Syringe SC SCH ×2 (10:45→23:18)
[2016-12-06] MEDS: Pantoprazole 40 mg EC Tab PO SCH (10:55)
[2016-12-06] MEDS: Potassium & Sodium Phosphate PO SCH ×3 (10:58→18:32)
[2016-12-06] MEDS: Calcium-Vit D 500 mg-200 Units Tab UD PO SCH (11:00)
[2016-12-06] MEDS: Saccharomyces Boulardi 250 mg Cap PO SCH ×2 (11:00→18:31)
[2016-12-06] MEDS ORDERED: Gentamicin 80 mg in 0.9% NS 80 MG/100 ML BAG IVPB STA (11:01)
--- NOTE | 2016-12-06 11:20 | RAD ---
HISTORY: bandemia COMPARISON: 12/03/2016 FINDINGS: LUNGS: Linear atelectasis at left base. No definite consolidation elsewhere. PLEURA: Opacity at both lung bases most likely due to dependent pleural fluid. Small bilateral pleural effusion. Decreased compared to prior chest radiograph. CARDIOVASCULAR: Limited due to severely oblique positioning. No congestive change. Right central venous infusion port. Left PICC catheter. OSSEOUS STRUCTURES: No significant abnormalities. VISUALIZED UPPER ABDOMEN: Normal. OTHER FINDINGS: None. IMPRESSION: Decreased bilateral pleural effusion. Probable linear atelectasis at left base.
--- NOTE | 2016-12-06 12:28 | CP.PCM.PN ---
<Simin Hall - Last Filed: 12/06/16 12:25> Subjective - Date & Time of Evaluation Date of Evaluation: 12/06/16 Time of Evaluation: 07:00 - Subjective Subjective: Medicine Note for Dr. Rivera Patient was seen and examined at bedside. Patient reports he feels okay today. No change from previous days. Denied any fever, chills, SOB, cough, abdominal pain, n/v/, or urinary symptoms. Objective - Vital Signs/Intake and Output Vital Signs (last 24 hours): Temp Pulse Resp BP Pulse Ox 97.6 F 106 H 20 91/56 L 98 12/06/16 08:51 12/06/16 08:51 12/06/16 08:51 12/06/16 08:51 12/06/16 08:51 Intake and Output: 12/06/16 12/06/16 06:59 18:59 Intake Total 1100 Output Total 950 Balance 150 - Medications Medications: Current Medications Calcium/Vitamin D (Oyster Shell Calcium/Vitamin D 500 Mg-200 Iu) 1 tab PO DAILY [facility] Last Admin: 12/05/16 12:10 Dose: 1 tab Enoxaparin Sodium (Lovenox) 90 mg SC Q12 [facility] Last Admin: 12/05/16 22:00 Dose: 90 mg Gabapentin (Neurontin) 100 mg PO TID [facility] Last Admin: 12/05/16 18:12 Dose: 100 mg Hydromorphone HCl (Dilaudid) 0.5 mg IVP Q4H PRN PRN Reason: Pain, moderate (4-7) Last Admin: 11/26/16 23:28 Dose: 0.5 mg Hydroxyzine HCl (Atarax) 25 mg PO Q6 PRN PRN Reason: Anxiety Dextrose (Dextrose 10% In Water) 1,000 mls @ 50 mls/hr IV .Q20H [facility] Imipenem/Cilastatin Sodium 500 (mg/ Sodium Chloride) 100 mls @ 100 mls/hr IVPB Q6H [facility] Insulin Aspart (Novolog) 0 unit SC ACHS [facility] PRN Reason: Protocol Last Admin: 12/06/16 08:00 Dose: Not Given Insulin Detemir (Levemir) 15 unit SC DAILY [facility] Last Admin: 12/05/16 12:13 Dose: 15 unit Midodrine (Proamatine) 2.5 mg PO TID [facility] Ondansetron HCl (Zofran Inj) 4 mg IVP Q6H PRN PRN Reason: Nausea/Vomiting Last Admin: 11/28/16 12:06 Dose: 4 mg Pantoprazole Sodium (Protonix Ec Tab) 40 mg PO DAILY [facility] Last Admin: 12/05/16 12:10 Dose: 40 mg Potassium Phos/Sodium Phos (Neutra-Phos) 1 pkt PO TID [facility] Stop: 12/08/16 23:59 Saccharomyces Boulardii (Florastor) 250 mg PO BID [facility] Last Admin: 12/05/16 18:12 Dose: 250 mg Sertraline HCl (Zoloft) 50 mg PO DAILY [facility] Last Admin: 12/05/16 12:10 Dose: 50 mg Zolpidem Tartrate (Ambien) 5 mg PO HS PRN PRN Reason: Insomnia Last Admin: 12/03/16 21:31 Dose: 5 mg - Labs Labs: 12/06/16 07:20 12/06/16 07:20 PT 15.0 SECONDS (9.7-12.2) H 12/03/16 07:08 INR 1.3 12/03/16 07:08 APTT 37 SECONDS (21-34) H 12/03/16 07:08 - Constitutional Appears: No Acute Distress, Chronically Ill - Head Exam Head Exam: NORMAL INSPECTION, NORMOCEPHALIC - Eye Exam Eye Exam: EOMI, Normal appearance, PERRL - ENT Exam ENT Exam: Mucous Membranes Moist, Normal Exam - Neck Exam Neck Exam: Normal Inspection - Respiratory Exam Respiratory Exam: Decreased Breath Sounds (Improved from yesterday ), NORMAL BREATHING PATTERN - Cardiovascular Exam Cardiovascular Exam: REGULAR RHYTHM, RRR, +S1, +S2 - GI/Abdominal Exam GI & Abdominal Exam: Soft, Normal Bowel Sounds. absent: Distended, Tenderness - Extremities Exam Extremities Exam: Normal Inspection, Pedal Edema. absent: Tenderness Additional comments: Right arm swollen, anasarca - Neurological Exam Neurological Exam: Alert, Awake, Oriented x3 - Skin Skin Exam: Dry, Intact, Normal Color, Warm Assessment and Plan - Assessment and Plan (Free Text) Plan: Bacteremia Assessment & Plan: 12/06: Tachycardia, hypotensive, with bandemia at 27. Pt was jesus cultured. KATE Robersonhiender. Was given a stat dose of Gentamycin and restarted on Primaxin. Possible source PICC line or RIJ Portacath. F/U cultures, lactate level Continued hypotension, started on Midodrin 2.5mg PO TID Continue on Ceftriaxone 2 gm IV Q24H for 14 days starting 11/29/16. Leukocytosis resolved. 11/30/17: As per ID, Repeat blood culture was negative, Primaxin and Flagyl was discontinued (11/29/16). Ceftriaxone 2 gm IV Q24H for 14 days starting 11/29/16 11/29/16: E. coli in blood culture on 11/15/16. Repeat blood culture on 11/23/16 was finalized as negative. I will speak with ID Dr. Burns concerning how much longer we need to continue the Primaxin and Flagyl 11/27: wbc trending down. afebrile. will continue primaxin and flagyl and monitor bands and wbc. Blood cultures negative after 3 days. 11/26: Patient in ICU for monitoring post OR, Bands 12 today, will monitor. 11/25: Blood cultures are negative after [address] Burns, con't tx for minimum of 14 days; Primaxin and Flagyl both started on 11/17. 11/19: HIV screen negative, Hep panel negative. Bands 26 today. 11/18: HIV 1&2 antibodies, Hep panel were ordered today. ID has been consulted, Dr Burns, we will follow his recommendations. 11/17: Changed to IV Primaxin 500mg IV Q6 Follow cultures. Currently blood pressure and HR stable. Nonfebrile. Continue with the IVF, monitor lowe outputs Status: Acute Anemia of chronic disease Assessment & Plan: S/P transfusion total 2 units PRBCs- hemoglobin is stable today at 9.4 SAWSMITH was called on patient 12/04/16 due hypotension. Lasix was discontinued. He was given a fluid bolus, albumin and continued with the 1 unit of PRBCs. Patient was given albumin again today. And will be transfused another unit of PRBCs due to hemoglobin of 7.8. H/H was 7.7/27.4 - Consent retrieved- patient will be transfused 1 unit of PRBCs 11/26: After discussing with Heme/Onc Dr Garcia, since Ferritin is normal ferrlecit will not provide much benefit, will discontinue 11/25: Will start Ferrlecit 125mg iv daily after surgical procedure 11/25: Hgb stable at 8.6. Status: Acute Uncontrolled diabetes mellitus Assessment & Plan: Recent HgbA1C: 11.5 (11/20/16) Accuchecks Aspart ISS - low Levemir 15 units SC HS--->HELD due to hypoglycemic episode. Started on D10 @ 50 cc/hr Status: Chronic Chronic diarrhea Assessment & Plan: Secondary to 2/2 10 cm Unresectable Rectosigmoid Mass POD #3 RIJ Portacath insertion, s/p exploratory laparotomy POD#10, w/ findings of unresectable rectosigmoid mass. Abdominal jody removed today. 12/02/16 POD #6; Surgery will remove abdominal incision jody on POD #10. Surgery reconsulted for portacath placement. NPO past midnight tonight for OR tomorrow morning. 11/30/16: POD # 4: As per conversation with Dr. Lake Harris on 11/29/16, patient has decided to be DNR/DNI 11/29/16: POD #3. Patient is still undecided concerning further management. If he decides to proceed then he will need a Chemo Port placed. He has signed DNR/ DNI. I discussed patient's decision concerning further treatment with Dr. Willow Garcia on the night of 11/28/1611/28: s/p exploratory laparotomy POD2, w/ findings of unresectable rectosigmoid mass. Patient stated today he does not want the chemoport, he said he wants time to think about it. Patient appears tired and he does not want to make sudden decisions. No morning labs, blood draw was difficult this morning due to poor vein access. 11/27: s/p exploratory laparotomy POD1, w/ findings of unresectable rectosigmoid mass. Per surgery note, patient will need a portacath placement, time and date to be determined. Will stop heparin drip (tx for RUE deep vein thrombosis) 4 hours prior to portacath placement procedure. 11/26: Per campus president, the surgery today to resect patient's sigmoid mass was halted after it was determined the mass was too large/firm for removal. The patient will be treated with a neoadjuvant with hopes of shrinking the size of the tumor with possible surgery for removal at a later date. Patient was sent to ICU post OR for monitoring. 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 Due to lovenox longer half life, therapeutic lovenox was discontinued and heparin was started. Heparin 8000u iv bolus was given and heparin drip was started at 18u/kg/hr. This drip will be stopped at exactly 5am, 4 hours before surgery. 11/21: Pt s/p cystoscopy today. Patient found to have invasion to dome of urinary bladder. Surgery to plan for surgery some time next week 11/21: Per GI, Abdominal U/S obtained to rule out SV thrombosis given presence of gastroesopahgeal varices seen on endoscopic examination -> Abdominal U/S: 1. Hepatocellular disease without focal hepatic mass. 2. Patent portal venous system including splenic vein. 3. Cholelithiasis. No sonographic evidence of acute cholecystitis. 4. Cystic mass in the head of the pancreas. Remainder the pancreas is not visualized. 11/21: PICC placed today by IR DR Armando. 11/20: s/p upper EUS: "LA grade C erosive esophagitis. 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 75mm x 65mm psedocyst seen in pancreatic body, fine needle aspiration for fluid performed. Varices were visualized endosonographically in fundus of stomach". Will f/u cystology and CEA levels. 11/20: s/p venous duplex of upper extremities: "right: acute thrombosis of right subclavian, axillary and brachial veins with severe reduction of venous return. left: acute thrombosis of left cephatlic vein with severe reduction of venous return". Therapeutic lovenox started -> 90mg q12 sc. 11/20: s/p venous duplex of lower extremeties: negative 11/19: GI to perform EUS tomorrow. Advanced diet to liquid - will advance as tolerated. B/l upper and lower extremity duplex scans were ordered today. 11/18: Patient is s/p EGD/Colonoscopy. A 10cm partially obstructing sigmoid mass was seen and biopsied. Multiple polyps were seen and resected. Heme/Onc, Dr Garcia has been consulted, we will follow up with his recommendations. CT chest abdomen and pelvis findings as noted: suspected sigmoid and proximal rectum mass lesion without evidence of high grade bowel obstruction; suspected abscess formation; cystic mass lesion noted at pancreas with surrounding fat stranding of the pancreatic tail; large gallstones without evidence of acute cholecystitis GI consult (Dr. Srivastava)---> Help appreciated General Surgery Consult (Dr. Amin)----> Help appreciated Urology Consult (Dr. Jon)----> Help appreciated Stool culture negative for salmonella, shigella, campylobacter Stool leukocytes negative Ova and parasites not seen C. diffi toxin AB negative Status: Acute Acute deep vein thrombosis (DVT) of right upper extremity Assessment & Plan: Continue therapeutic Lovenox at 90 mg SC Q12H - RESUMED 11/29: Heparin Drip was discontinued on 11/28/16 as PTT could not be measured secondary to inability to draw blood from edematous arms and could not draw blood from left arm PICC for the PTT level due to the Heprin Drip being infused through the PICC. Therefore patient was restarted on therapeutic Lovenox at 90 mg SC Q12H 11/27: Heparin drip restarted at 18u/kg/hr. Heparin bolus 8,000u given prior to start of drip. 11/26: Per surgery, plan is to restart anticoagulant tomorrow morning Status: Acute Pleural Effusions Repeat CXR today shows: Decreased bilateral pleural effusion. Probable linear atelectasis at left base. CXR 12/02 compared to 11/15 --> B/L pleural effusions R>L. Was placed on lasix 20mg IVP Q12. Pulmonology consulted, Dr. Mccormick - patient is for thoracentesis. IR reported not enough fluid for thoracentesis. Esophageal abrasion Assessment & Plan: 11/18: Per endoscopy report * Ulcerated mucosa in the lower third of the esophagus was seen and biopsied. Medication: * Patient is on Protonix 40 mg PO BID. Status: Acute Pancreatic lesion Assessment & Plan: GI outpatient follow-up 11/26: Pancreatic cyst FNA negative for malignant cells per cytology report. 11/25: Per laboratory machinist, EUS performed on 11/20 sampled pancreatic cyst fluid with diagnostic studies ordered for ptf amylase and ptf CEA only 11/20: Upper EUS performed today: "75mm x 65mm psedocyst seen in pancreatic body , fine needle aspiration for fluid performed 11/18: CT abd/pelvis shows cystic mass lesion at pancreas with fat stranding of pacreatic tail. Lipase level and lipid panel was ordered today. 11/17: CA 19-9 wnl Status: Acute Cholelithiasis Assessment & Plan: GI outpatient follow-up 11/18: CT abd/pelvis shows large gallstones without evidence of acute cholecystitis. Status: Acute Abnormal cardiovascular stress test Assessment & Plan: Cardiology outpatient follow-up 11/25: Nuclear Stress Test: Defect in mid-anteroseptal wall, defect in basal inferoseptal wall, fixed apical defect old NV, small defect inferior wall 11/25: ECHO: left ventricle systolic function is normal. EF is 50-55%. Status: Acute Prophylactic measure Assessment & Plan: Protonix 40 mg PO BID Lovenox 90mg IV q12H Florastor PO BID Ambien 5 mg PO HS Glucerna Shake 3 times a day help increase his protein level Physical Therapy started on 11/29/16 Status: Acute Disposition: Patient will be discharged home once medically stable and instructed to follow up with the [facility] for a referral for Dr. Garcia to have outpatient chemotherapy. DW Rafael Stoddard DO, PGY-1 <Blanco Rivera M - Last Filed: 12/06/16 17:44> Objective - Vital Signs/Intake and Output Vital Signs (last 24 hours): Temp Pulse Resp BP Pulse Ox 97.6 F 107 H 20 91/56 L 98 12/06/16 08:51 12/06/16 12:48 12/06/16 08:51 12/06/16 08:51 12/06/16 08:51 Intake and Output: 12/06/16 12/06/16 06:59 18:59 Intake Total 1100 750 Output Total 950 350 Balance 150 400 - Medications Medications: Current Medications Calcium/Vitamin D (Oyster Shell Calcium/Vitamin D 500 Mg-200 Iu) 1 tab PO DAILY [facility] Last Admin: 12/06/16 11:00 Dose: 1 tab Enoxaparin Sodium (Lovenox) 90 mg SC Q12 [facility] Last Admin: 12/06/16 10:45 Dose: 90 mg Gabapentin (Neurontin) 100 mg PO TID [facility] Last Admin: 12/06/16 13:41 Dose: 100 mg Hydromorphone HCl (Dilaudid) 0.5 mg IVP Q4H PRN PRN Reason: Pain, moderate (4-7) Last Admin: 11/26/16 23:28 Dose: 0.5 mg Hydroxyzine HCl (Atarax) 25 mg PO Q6 PRN PRN Reason: Anxiety Dextrose (Dextrose 10% In Water) 1,000 mls @ 50 mls/hr IV .Q20H [facility] Last Admin: 12/06/16 10:50 Dose: 50 mls/hr Imipenem/Cilastatin Sodium 500 (mg/ Sodium Chloride) 100 mls @ 100 mls/hr IVPB Q6H [facility] Last Admin: 12/06/16 12:38 Dose: 100 mls/hr Insulin Aspart (Novolog) 0 unit SC ACHS [facility] PRN Reason: Protocol Last Admin: 12/06/16 17:26 Dose: Not Given Insulin Detemir (Levemir) 15 unit SC DAILY [facility] Last Admin: 12/05/16 12:13 Dose: 15 unit Midodrine (Proamatine) 2.5 mg PO TID [facility] Last Admin: 12/06/16 13:41 Dose: 2.5 mg Ondansetron HCl (Zofran Inj) 4 mg IVP Q6H PRN PRN Reason: Nausea/Vomiting Last Admin: 11/28/16 12:06 Dose: 4 mg Pantoprazole Sodium (Protonix Ec Tab) 40 mg PO DAILY [facility] Last Admin: 12/06/16 10:55 Dose: 40 mg Potassium Phos/Sodium Phos (Neutra-Phos) 1 pkt PO TID [facility] Stop: 12/08/16 23:59 Last Admin: 12/06/16 13:45 Dose: 1 pkt Saccharomyces Boulardii (Florastor) 250 mg PO BID [facility] Last Admin: 12/06/16 11:00 Dose: 250 mg Sertraline HCl (Zoloft) 50 mg PO DAILY [facility] Last Admin: 12/06/16 10:58 Dose: 50 mg Zolpidem Tartrate (Ambien) 5 mg PO HS PRN PRN Reason: Insomnia Last Admin: 12/03/16 21:31 Dose: 5 mg - Labs Labs: 12/06/16 07:20 12/06/16 07:20 PT 15.0 SECONDS (9.7-12.2) H 12/03/16 07:08 INR 1.3 12/03/16 07:08 APTT 37 SECONDS (21-34) H 12/03/16 07:08 Attending/Attestation - Attestation I have personally seen and examined this patient.: Yes I have fully participated in the care of the patient.: Yes I have reviewed all pertinent clinical information, including history, physical exam and plan: Yes Notes (Text): 12/06/16 17:43 Patient was seen and examined at bedside with the resident today and patient appears comfortable. H&H is stable Patient remains hypotensive. Labs noted. Patient has bandemia. We have started the patient on gentamicin and Primaxin Rocephin was discontinued Discussed with ID. I discussed the plan of care with the resident I agree with the history and physical and assessment/plan recommended above.
--- NOTE | 2016-12-06 14:45 | CP.PCM.PN ---
Subjective - Date & Time of Evaluation Date of Evaluation: 12/06/16 Time of Evaluation: 10:00 - Subjective Subjective: PGY3 on heme/onc Dr. Garcia service: Pt seen and examined at bedside this morning. No complaints and feeling good. Objective - Vital Signs/Intake and Output Vital Signs (last 24 hours): Temp Pulse Resp BP Pulse Ox 97.6 F 106 H 20 91/56 L 98 12/06/16 08:51 12/06/16 08:51 12/06/16 08:51 12/06/16 08:51 12/06/16 08:51 Intake and Output: 12/06/16 12/06/16 06:59 18:59 Intake Total 1100 Output Total 950 Balance 150 - Medications Medications: Current Medications Calcium/Vitamin D (Oyster Shell Calcium/Vitamin D 500 Mg-200 Iu) 1 tab PO DAILY [facility] Last Admin: 12/06/16 11:00 Dose: 1 tab Enoxaparin Sodium (Lovenox) 90 mg SC Q12 [facility] Last Admin: 12/06/16 10:45 Dose: 90 mg Gabapentin (Neurontin) 100 mg PO TID [facility] Last Admin: 12/06/16 13:41 Dose: 100 mg Hydromorphone HCl (Dilaudid) 0.5 mg IVP Q4H PRN PRN Reason: Pain, moderate (4-7) Last Admin: 11/26/16 23:28 Dose: 0.5 mg Hydroxyzine HCl (Atarax) 25 mg PO Q6 PRN PRN Reason: Anxiety Dextrose (Dextrose 10% In Water) 1,000 mls @ 50 mls/hr IV .Q20H [facility] Last Admin: 12/06/16 10:50 Dose: 50 mls/hr Imipenem/Cilastatin Sodium 500 (mg/ Sodium Chloride) 100 mls @ 100 mls/hr IVPB Q6H [facility] Last Admin: 12/06/16 12:38 Dose: 100 mls/hr Insulin Aspart (Novolog) 0 unit SC ACHS [facility] PRN Reason: Protocol Last Admin: 12/06/16 12:30 Dose: Not Given Insulin Detemir (Levemir) 15 unit SC DAILY [facility] Last Admin: 12/05/16 12:13 Dose: 15 unit Midodrine (Proamatine) 2.5 mg PO TID [facility] Last Admin: 12/06/16 13:41 Dose: 2.5 mg Ondansetron HCl (Zofran Inj) 4 mg IVP Q6H PRN PRN Reason: Nausea/Vomiting Last Admin: 11/28/16 12:06 Dose: 4 mg Pantoprazole Sodium (Protonix Ec Tab) 40 mg PO DAILY [facility] Last Admin: 12/06/16 10:55 Dose: 40 mg Potassium Phos/Sodium Phos (Neutra-Phos) 1 pkt PO TID [facility] Stop: 12/08/16 23:59 Last Admin: 12/06/16 13:45 Dose: 1 pkt Saccharomyces Boulardii (Florastor) 250 mg PO BID [facility] Last Admin: 12/06/16 11:00 Dose: 250 mg Sertraline HCl (Zoloft) 50 mg PO DAILY [facility] Last Admin: 12/06/16 10:58 Dose: 50 mg Zolpidem Tartrate (Ambien) 5 mg PO HS PRN PRN Reason: Insomnia Last Admin: 12/03/16 21:31 Dose: 5 mg - Labs Labs: 12/06/16 07:20 12/06/16 07:20 PT 15.0 SECONDS (9.7-12.2) H 12/03/16 07:08 INR 1.3 12/03/16 07:08 APTT 37 SECONDS (21-34) H 12/03/16 07:08 - Constitutional Appears: Non-toxic, No Acute Distress - Head Exam Head Exam: NORMOCEPHALIC - Eye Exam Eye Exam: Normal appearance - ENT Exam ENT Exam: Mucous Membranes Moist - Respiratory Exam Respiratory Exam: NORMAL BREATHING PATTERN - Cardiovascular Exam Cardiovascular Exam: REGULAR RHYTHM, +S1, +S2 - GI/Abdominal Exam GI & Abdominal Exam: Normal Bowel Sounds - Neurological Exam Neurological Exam: Alert, Awake, Oriented x3 - Skin Additional comments: portacath dressing and abdominal jody clean, dry and intact Assessment and Plan - Assessment and Plan (Free Text) Assessment: (1) Colon cancer Assessment & Plan: with bladder extension for outpatient neoadjuvant chemotherapy Status: Acute (2) DVT (deep venous thrombosis) Assessment & Plan: on anticoagulation Status: Acute (3) Anemia Assessment & Plan: chronic disease s/p PRBC transfusion Status: Acute (4) Pancreatic lesion Assessment & Plan: biopsy negative for malignancy Status: Acute
--- NOTE | 2016-12-06 18:25 | CP.PCM.PN ---
Subjective - Date & Time of Evaluation Date of Evaluation: 12/06/16 Time of Evaluation: 07:00 - Subjective Subjective: all cultures rerpeated iv antibiotics adjusted prognosis remains poor Objective - Vital Signs/Intake and Output Vital Signs (last 24 hours): Temp Pulse Resp BP Pulse Ox 100.8 F H 114 H 20 125/59 L 94 L 12/06/16 17:00 12/06/16 17:00 12/06/16 17:00 12/06/16 17:00 12/06/16 17:00 Intake and Output: 12/06/16 12/06/16 06:59 18:59 Intake Total 1100 750 Output Total 950 350 Balance 150 400 - Medications Medications: Current Medications Calcium/Vitamin D (Oyster Shell Calcium/Vitamin D 500 Mg-200 Iu) 1 tab PO DAILY [facility] Last Admin: 12/06/16 11:00 Dose: 1 tab Enoxaparin Sodium (Lovenox) 90 mg SC Q12 [facility] Last Admin: 12/06/16 10:45 Dose: 90 mg Gabapentin (Neurontin) 100 mg PO TID [facility] Last Admin: 12/06/16 13:41 Dose: 100 mg Hydromorphone HCl (Dilaudid) 0.5 mg IVP Q4H PRN PRN Reason: Pain, moderate (4-7) Last Admin: 11/26/16 23:28 Dose: 0.5 mg Hydroxyzine HCl (Atarax) 25 mg PO Q6 PRN PRN Reason: Anxiety Dextrose (Dextrose 10% In Water) 1,000 mls @ 50 mls/hr IV .Q20H [facility] Last Admin: 12/06/16 10:50 Dose: 50 mls/hr Imipenem/Cilastatin Sodium 500 (mg/ Sodium Chloride) 100 mls @ 100 mls/hr IVPB Q6H [facility] Last Admin: 12/06/16 12:38 Dose: 100 mls/hr Insulin Aspart (Novolog) 0 unit SC ACHS [facility] PRN Reason: Protocol Last Admin: 12/06/16 17:26 Dose: Not Given Insulin Detemir (Levemir) 15 unit SC DAILY [facility] Last Admin: 12/05/16 12:13 Dose: 15 unit Midodrine (Proamatine) 2.5 mg PO TID [facility] Last Admin: 12/06/16 13:41 Dose: 2.5 mg Ondansetron HCl (Zofran Inj) 4 mg IVP Q6H PRN PRN Reason: Nausea/Vomiting Last Admin: 11/28/16 12:06 Dose: 4 mg Pantoprazole Sodium (Protonix Ec Tab) 40 mg PO DAILY [facility] Last Admin: 12/06/16 10:55 Dose: 40 mg Potassium Phos/Sodium Phos (Neutra-Phos) 1 pkt PO TID [facility] Stop: 12/08/16 23:59 Last Admin: 12/06/16 13:45 Dose: 1 pkt Saccharomyces Boulardii (Florastor) 250 mg PO BID [facility] Last Admin: 12/06/16 11:00 Dose: 250 mg Sertraline HCl (Zoloft) 50 mg PO DAILY [facility] Last Admin: 12/06/16 10:58 Dose: 50 mg Zolpidem Tartrate (Ambien) 5 mg PO HS PRN PRN Reason: Insomnia Last Admin: 12/03/16 21:31 Dose: 5 mg - Labs Labs: 12/06/16 07:20 12/06/16 07:20 PT 15.0 SECONDS (9.7-12.2) H 12/03/16 07:08 INR 1.3 12/03/16 07:08 APTT 37 SECONDS (21-34) H 12/03/16 07:08 Assessment and Plan (1) Chronic diarrhea Status: Deleted (2) Colonic mass Status: Acute (3) Diabetic ketosis Status: Acute (4) GI bleeding Status: Acute (5) E coli bacteremia Status: Acute (6) E coli bacteremia Status: Acute
[2016-12-07 06:44] LABS: BASO % 0.3 % (0.0-2.0); EOS % 0.4 % (0.0-4.0); HEMATOCRIT 26.2 % (35.0-51.0); LYMPH # 0.8 K/uL (1.0-4.3); LYMPH % 10.3 % (20.0-40.0); MEAN CORPUSCULAR HGB CONC 32.9 g/dL (33.0-37.0); MEAN PLATELET VOLUME 9.5 fL (7.2-11.7); MONO # 0.8 K/uL (0.0-0.8); MONO % 10.1 % (0.0-10.0); RED CELL DISTRIBUTION WIDTH 24.7 % (11.5-14.5); WHITE BLOOD COUNT 8.2 K/uL (4.8-10.8)
[2016-12-07 06:53] LABS: CHLORIDE 95 mmol/L (98-107); POTASSIUM 3.5 mmol/L (3.6-5.2); SODIUM 132 mmol/L (132-148)
[2016-12-07 06:55] LABS: BILIRUBIN,TOTAL 0.9 mg/dL (0.2-1.3); GFR AFRICAN-AMERICAN > 60
[2016-12-07 06:56] LABS: ALKALINE PHOSPHATASE 168 U/L (38-126); ALT/SGPT 33 U/L (21-72); AST/SGOT 23 U/L (17-59); BLOOD UREA NITROGEN 13 mg/dL (9-20); CALCIUM 6.4 mg/dl (8.6-10.4); CARBON DIOXIDE 29 mmol/L (22-30); GLUCOSE,RANDOM 180 mg/dL (75-110); PHOSPHOROUS 3.2 mg/dL (2.5-4.5)
[2016-12-07 06:57] LABS: MAGNESIUM 1.5 mg/dL (1.6-2.3)
[2016-12-07 07:02] LABS: ALB/GLOB RATIO 0.7 (1.0-2.1)
[2016-12-07] MEDS ORDERED: Potassium Chloride 20 mEq ER Tab PO STA (07:50)
[2016-12-07] MEDS: (Novolog) Insulin Aspart, Recombinant 100 u/ml 10 ml vial SC SCH ×4 (08:23→22:00)
[2016-12-07] MEDS: Magnesium Sulfate 1 gm in D5W 1 GM/100 ML BAG IVPB SCH ×2 (08:47→09:29)
[2016-12-07] MEDS: Potassium & Sodium Phosphate PO SCH ×3 (09:27→18:37)
[2016-12-07] MEDS: Enoxaparin 100 mg Syringe SC SCH ×2 (09:27→22:13)
[2016-12-07] MEDS: Pantoprazole 40 mg EC Tab PO SCH (09:28)
[2016-12-07] MEDS: Saccharomyces Boulardi 250 mg Cap PO SCH ×2 (09:28→18:37)
[2016-12-07] MEDS: Calcium-Vit D 500 mg-200 Units Tab UD PO SCH (09:28)
[2016-12-07] MEDS ORDERED: Gentamicin 80 mg in 0.9% NS 80 MG/100 ML BAG IVPB STA (11:18)
[2016-12-07] MEDS ORDERED: Iohexol 240 (50 ml) PO ONE (14:45)
[2016-12-07] MEDS ORDERED: Iodixanol 320 MG/ML 100 ML BOTTLE IV ONE (16:53)
--- NOTE | 2016-12-07 18:07 | CT ---
EXAM: CT Abdomen and Pelvis With Intravenous Contrast CLINICAL HISTORY: 66 years old, male; Signs and symptoms; Other: Abcess; Additional info: R/O abscess TECHNIQUE: Axial computed tomography images of the abdomen and pelvis with intravenous contrast. This CT exam was performed using one or more of the following dose reduction techniques: automated exposure control, adjustment of the mA and/or kV according to patient size, and/or use of iterative reconstruction technique. Coronal and sagittal reformatted images were created and reviewed. CONTRAST: 100 mL of visipaque administered intravenously. EXAM DATE/TIME: Exam ordered 12/07/2016 11:08 AM COMPARISON: CT - CHEST,ABD,PEL W/IV CONT ONLY 11/16/2016 6:00:37 AM FINDINGS: Lower thorax: There are moderate-sized bilateral pleural effusions, right side greater left. There is atelectasis of the right lower lobe. Compression atelectasis is seen of the posterior basal and medial basal segment of the left lower lobe. 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 ABDOMEN: Liver: Unremarkable. No mass. Gallbladder and bile ducts: Gallstones are seen in the gallbladder. No ductal dilation. Pancreas: There is a cyst noted within the neck body and tail of the pancreas measuring 11.5 x 5.6 x 7.7 cm compared to a previous measurement of 11.4 x 5.6 x 7 cm from a study dated 11/16/2016. No ductal dilation. Spleen: The spleen measures 14 cm in craniocaudal span. Adrenals: Unremarkable. No mass. Kidneys and ureters: There are bilateral double-J ureteral stents in place. There is a 1.4 cm low density lesion in the upper pole of the left kidney with a density measurement of 21H. There is mild fullness of the central collecting systems bilaterally. . Stomach and bowel: The masslike thickening noted in the sigmoid colon previously is again evident. Gas fluid level is seen in the rectum. No obstruction. Appendix: No findings to suggest acute appendicitis. PELVIS: Bladder: A Huerta catheter is present within the bladder. Reproductive: There appears to be a large scrotal hydrocele. ABDOMEN and PELVIS: Intraperitoneal space: An interloop gas fluid fluid collection is noted in the right lower quadrant measuring 5.8 x 3 x 4.1 cm compared to a previous measurement of 7.3 x 3.8 x 4.4 cm. A second gas/fluid collection is noted him contiguous with the previously noted sigmoid mass. This measures 12 x 15 x 8.5 cm compared to a previous measurement of 8.4 x 6.9 x 6.7 cm. The pelvic abscess contains multiple loculations. Ascites is present. No free air. Bones/joints: No acute fracture. No dislocation. Soft tissues: There is generalized anasarca. Vasculature: See above. Lymph nodes: Unremarkable. No enlarged lymph nodes. Other findings: IMPRESSION: 1. Increase in size of abscess in the pelvis and in the right lower quadrant. 2. Stable cystic pancreatic lesion. The differential diagnostic considerations include pancreatic pseudocyst. Cystic neoplasm is another consideration. 3. Gallstones. 4. Abdominal ascites and anasarca. 5. Sigmoid colon neoplasm 6. Bilateral double-J ureteral stents. Mild residual fullness of the collecting systems bilaterally. 7. Left renal cyst. 8. 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 9. Bilateral pleural effusions, right side greater than left with atelectasis in the lower lobes bilaterally as described above.
--- NOTE | 2016-12-07 20:53 | CP.PCM.PN ---
<Brittni Delacruz - Last Filed: 12/07/16 20:50> Subjective - Date & Time of Evaluation Date of Evaluation: 12/07/16 Time of Evaluation: 07:45 - Subjective Subjective: PGY2 medicine note for Dr. Rivera: Patient seen and examined at bedside. Patient reports he feels okay today. No change from previous days. Denied any fever, chills, SOB, cough, abdominal pain , n/v/, or urinary symptoms. He reports one episodes of diarrhea. C diff was ordered and was negative. Patient is tolerating his diet. He states he is weak and is not able to get out of bed or sit in the chair. Objective - Vital Signs/Intake and Output Vital Signs (last 24 hours): Temp Pulse Resp BP Pulse Ox 98 F 93 H 20 95/59 L 98 12/07/16 15:35 12/07/16 15:35 12/07/16 15:35 12/07/16 15:35 12/07/16 15:35 Intake and Output: 12/07/16 12/08/16 18:59 06:59 Intake Total 900 Output Total 400 Balance 500 - Medications Medications: Current Medications Calcium/Vitamin D (Oyster Shell Calcium/Vitamin D 500 Mg-200 Iu) 1 tab PO DAILY [facility] Last Admin: 12/07/16 09:28 Dose: 1 tab Enoxaparin Sodium (Lovenox) 90 mg SC Q12 [facility] Last Admin: 12/07/16 09:27 Dose: 90 mg Gabapentin (Neurontin) 100 mg PO TID [facility] Last Admin: 12/07/16 18:37 Dose: 100 mg Hydromorphone HCl (Dilaudid) 0.5 mg IVP Q4H PRN PRN Reason: Pain, moderate (4-7) Last Admin: 11/26/16 23:28 Dose: 0.5 mg Hydroxyzine HCl (Atarax) 25 mg PO Q6 PRN PRN Reason: Anxiety Dextrose (Dextrose 10% In Water) 1,000 mls @ 50 mls/hr IV .Q20H [facility] Last Admin: 12/07/16 20:26 Dose: 50 mls/hr Imipenem/Cilastatin Sodium 500 (mg/ Sodium Chloride) 100 mls @ 100 mls/hr IVPB Q6H [facility] Last Admin: 12/07/16 18:39 Dose: 100 mls/hr Insulin Aspart (Novolog) 0 unit SC ACHS [facility] PRN Reason: Protocol Last Admin: 12/07/16 17:30 Dose: 4 unit Insulin Detemir (Levemir) 15 unit SC DAILY [facility] Last Admin: 12/05/16 12:13 Dose: 15 unit Loperamide HCl (Imodium) 2 mg PO QID PRN PRN Reason: Diarrhea Last Admin: 12/07/16 12:26 Dose: 2 mg Midodrine (Proamatine) 2.5 mg PO TID [facility] Last Admin: 12/07/16 18:39 Dose: 2.5 mg Ondansetron HCl (Zofran Inj) 4 mg IVP Q6H PRN PRN Reason: Nausea/Vomiting Last Admin: 11/28/16 12:06 Dose: 4 mg Pantoprazole Sodium (Protonix Ec Tab) 40 mg PO DAILY [facility] Last Admin: 12/07/16 09:28 Dose: 40 mg Potassium Phos/Sodium Phos (Neutra-Phos) 1 pkt PO TID [facility] Stop: 12/08/16 23:59 Last Admin: 12/07/16 18:37 Dose: 1 pkt Saccharomyces Boulardii (Florastor) 250 mg PO BID [facility] Last Admin: 12/07/16 18:37 Dose: 250 mg Sertraline HCl (Zoloft) 50 mg PO DAILY [facility] Last Admin: 12/07/16 09:28 Dose: 50 mg Zolpidem Tartrate (Ambien) 5 mg PO HS PRN PRN Reason: Insomnia Last Admin: 12/03/16 21:31 Dose: 5 mg - Labs Labs: 12/07/16 06:32 12/07/16 06:32 PT 15.0 SECONDS (9.7-12.2) H 12/03/16 07:08 INR 1.3 12/03/16 07:08 APTT 37 SECONDS (21-34) H 12/03/16 07:08 - Constitutional Appears: Non-toxic, No Acute Distress, Chronically Ill - Head Exam Head Exam: ATRAUMATIC, NORMAL INSPECTION - Eye Exam Eye Exam: EOMI Pupil Exam: NORMAL ACCOMODATION - ENT Exam ENT Exam: Mucous Membranes Moist - Respiratory Exam Respiratory Exam: Decreased Breath Sounds, Rales, NORMAL BREATHING PATTERN. absent: Accessory Muscle Use, Respiratory Distress - Cardiovascular Exam Cardiovascular Exam: REGULAR RHYTHM, +S1, +S2 - GI/Abdominal Exam GI & Abdominal Exam: Soft, Normal Bowel Sounds. absent: Distended, Firm, Guarding, Tenderness - Extremities Exam Extremities Exam: absent: Calf Tenderness Additional comments: edema in all extremities anasarca - Back Exam Back Exam: NORMAL INSPECTION - Neurological Exam Neurological Exam: Alert, Awake, CN II-XII Intact, Oriented x3 - Psychiatric Exam Psychiatric exam: Normal Affect, Normal Mood Assessment and Plan - Assessment and Plan (Free Text) Assessment: Bacteremia Assessment & Plan: Patient's vitals improving. Still BP lower. Afebrile 24 hours. Blood culture + one bottle for gram neg rods. CT abd/pelvis 12/07 showed enlargement of pelvic abscess, will consult IR for possible draining of abscess. 12/06: Tachycardia, hypotensive, with bandemia at 27. Pt was jesus cultured. DC Rocephin. Was given a stat dose of Gentamycin and restarted on Primaxin. Possible source PICC line or RIJ Portacath. F/U cultures, lactate level Continued hypotension, started on Midodrin 2.5mg PO TID Continue on Ceftriaxone 2 gm IV Q24H for 14 days starting 11/29/16. Leukocytosis resolved. 11/30/17: As per ID, Repeat blood culture was negative, Primaxin and Flagyl was discontinued (11/29/16). Ceftriaxone 2 gm IV Q24H for 14 days starting 11/29/16 11/29/16: E. coli in blood culture on 11/15/16. Repeat blood culture on 11/23/16 was finalized as negative. I will speak with ID Dr. Burns concerning how much longer we need to continue the Primaxin and Flagyl 11/27: wbc trending down. afebrile. will continue primaxin and flagyl and monitor bands and wbc. Blood cultures negative after 3 days. 11/26: Patient in ICU for monitoring post OR, Bands 12 today, will monitor. 11/25: Blood cultures are negative after [address] Burns, con't tx for minimum of 14 days; Primaxin and Flagyl both started on 11/17. 11/19: HIV screen negative, Hep panel negative. Bands 26 today. 11/18: HIV 1&2 antibodies, Hep panel were ordered today. ID has been consulted, Dr Burns, we will follow his recommendations. 11/17: Changed to IV Primaxin 500mg IV Q6 Follow cultures. Currently blood pressure and HR stable. Nonfebrile. Continue with the IVF, monitor lowe outputs Status: Acute Anemia of chronic disease Assessment & Plan: S/P transfusion total 2 units PRBCs- hemoglobin is stable today but decreased to 8.6 from 9.4. [facility] MAORI was called on patient 12/04/16 due hypotension. Lasix was discontinued. He was given a fluid bolus, albumin and continued with the 1 unit of PRBCs. Patient was given albumin again today. And will be transfused another unit of PRBCs due to hemoglobin of 7.8. H/H was 7.11/28.4 - Consent retrieved- patient will be transfused 1 unit of PRBCs 11/26: After discussing with Heme/Onc Dr Garcia, since Ferritin is normal ferrlecit will not provide much benefit, will discontinue 11/25: Will start Ferrlecit 125mg iv daily after surgical procedure 11/25: Hgb stable at 8.6. Status: Acute Uncontrolled diabetes mellitus Assessment & Plan: Recent HgbA1C: 11.5 (11/20/16) Accuchecks Aspart ISS - low Levemir 15 units SC HS--->HELD due to hypoglycemic episode. Continue D10 @ 50 cc /hr Status: Chronic Chronic diarrhea Assessment & Plan: 12/06 C diff negative - Immodium added Secondary to 2/2 10 cm Unresectable Rectosigmoid Mass POD #3 RIJ Portacath insertion, s/p exploratory laparotomy POD#10, w/ findings of unresectable rectosigmoid mass. Abdominal jody removed today. 12/02/16 POD #6; Surgery will remove abdominal incision jody on POD #10. Surgery reconsulted for portacath placement. NPO past midnight tonight for OR tomorrow morning. 11/30/16: POD # 4: As per conversation with Dr. Lake Harris on 11/29/16, patient has decided to be DNR/DNI 11/29/16: POD #3. Patient is still undecided concerning further management. If he decides to proceed then he will need a Chemo Port placed. He has signed DNR/ DNI. I discussed patient's decision concerning further treatment with Dr. Willow Garcia on the night of 11/28/1611/28: s/p exploratory laparotomy POD2, w/ findings of unresectable rectosigmoid mass. Patient stated today he does not want the chemoport, he said he wants time to think about it. Patient appears tired and he does not want to make sudden decisions. No morning labs, blood draw was difficult this morning due to poor vein access. 11/27: s/p exploratory laparotomy POD1, w/ findings of unresectable rectosigmoid mass. Per surgery note, patient will need a portacath placement, time and date to be determined. Will stop heparin drip (tx for RUE deep vein thrombosis) 4 hours prior to portacath placement procedure. 11/26: Per surgical instrument maker, the surgery today to resect patient's sigmoid mass was halted after it was determined the mass was too large/firm for removal. The patient will be treated with a neoadjuvant with hopes of shrinking the size of the tumor with possible surgery for removal at a later date. Patient was sent to ICU post OR for monitoring. 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 Due to lovenox longer half life, therapeutic lovenox was discontinued and heparin was started. Heparin 8000u iv bolus was given and heparin drip was started at 18u/kg/hr. This drip will be stopped at exactly 5am, 4 hours before surgery. 11/21: Pt s/p cystoscopy today. Patient found to have invasion to dome of urinary bladder. Surgery to plan for surgery some time next week 11/21: Per GI, Abdominal U/S obtained to rule out SV thrombosis given presence of gastroesopahgeal varices seen on endoscopic examination -> Abdominal U/S: 1. Hepatocellular disease without focal hepatic mass. 2. Patent portal venous system including splenic vein. 3. Cholelithiasis. No sonographic evidence of acute cholecystitis. 4. Cystic mass in the head of the pancreas. Remainder the pancreas is not visualized. 11/21: PICC placed today by IR DR Armando. 11/20: s/p upper EUS: "LA grade C erosive esophagitis. 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 75mm x 65mm psedocyst seen in pancreatic body, fine needle aspiration for fluid performed. Varices were visualized endosonographically in fundus of stomach". Will f/u cystology and CEA levels. 11/20: s/p venous duplex of upper extremities: "right: acute thrombosis of right subclavian, axillary and brachial veins with severe reduction of venous return. left: acute thrombosis of left cephatlic vein with severe reduction of venous return". Therapeutic lovenox started -> 90mg q12 sc. 11/20: s/p venous duplex of lower extremeties: negative 11/19: GI to perform EUS tomorrow. Advanced diet to liquid - will advance as tolerated. B/l upper and lower extremity duplex scans were ordered today. 11/18: Patient is s/p EGD/Colonoscopy. A 10cm partially obstructing sigmoid mass was seen and biopsied. Multiple polyps were seen and resected. Heme/Onc, Dr Garcia has been consulted, we will follow up with his recommendations. CT chest abdomen and pelvis findings as noted: suspected sigmoid and proximal rectum mass lesion without evidence of high grade bowel obstruction; suspected abscess formation; cystic mass lesion noted at pancreas with surrounding fat stranding of the pancreatic tail; large gallstones without evidence of acute cholecystitis GI consult (Dr. Srivastava)---> Help appreciated General Surgery Consult (Dr. Amin)----> Help appreciated Urology Consult (Dr. Jon)----> Help appreciated Stool culture negative for salmonella, shigella, campylobacter Stool leukocytes negative Ova and parasites not seen C. diffi toxin AB negative Status: Acute Acute deep vein thrombosis (DVT) of right upper extremity Assessment & Plan: Continue therapeutic Lovenox at 90 mg SC Q12H - RESUMED 11/29: Heparin Drip was discontinued on 11/28/16 as PTT could not be measured secondary to inability to draw blood from edematous arms and could not draw blood from left arm PICC for the PTT level due to the Heprin Drip being infused through the PICC. Therefore patient was restarted on therapeutic Lovenox at 90 mg SC Q12H 11/27: Heparin drip restarted at 18u/kg/hr. Heparin bolus 8,000u given prior to start of drip. 11/26: Per surgery, plan is to restart anticoagulant tomorrow morning Status: Acute Pleural Effusions Repeat CXR today shows: Decreased bilateral pleural effusion. Probable linear atelectasis at left base. CXR 12/02 compared to 11/15 --> B/L pleural effusions R>L. Was placed on lasix 20mg IVP Q12. Pulmonology consulted, Dr. Mccormick - patient is for thoracentesis. IR reported not enough fluid for thoracentesis. Esophageal abrasion Assessment & Plan: 11/18: Per endoscopy report * Ulcerated mucosa in the lower third of the esophagus was seen and biopsied. Medication: * Patient is on Protonix 40 mg PO BID. Status: Acute Pancreatic lesion Assessment & Plan: GI outpatient follow-up 11/26: Pancreatic cyst FNA negative for malignant cells per cytology report. 11/25: Per labor commissioner, EUS performed on 11/20 sampled pancreatic cyst fluid with diagnostic studies ordered for ptf amylase and ptf CEA only 11/20: Upper EUS performed today: "75mm x 65mm psedocyst seen in pancreatic body , fine needle aspiration for fluid performed 11/18: CT abd/pelvis shows cystic mass lesion at pancreas with fat stranding of pacreatic tail. Lipase level and lipid panel was ordered today. 11/17: CA 19-9 wnl Status: Acute Cholelithiasis Assessment & Plan: GI outpatient follow-up 11/18: CT abd/pelvis shows large gallstones without evidence of acute cholecystitis. Status: Acute Abnormal cardiovascular stress test Assessment & Plan: Cardiology outpatient follow-up 11/25: Nuclear Stress Test: Defect in mid-anteroseptal wall, defect in basal inferoseptal wall, fixed apical defect old ND, small defect inferior wall 11/25: ECHO: left ventricle systolic function is normal. EF is 50-55%. Status: Acute Prophylactic measure Assessment & Plan: Protonix 40 mg PO BID Lovenox 90mg IV q12H Florastor PO BID Ambien 5 mg PO HS Glucerna Shake 3 times a day help increase his protein level Physical Therapy started on 11/29/16 Status: Acute Disposition: Patient will be discharged home once medically stable and instructed to follow up with the [facility] for a referral for Dr. Garcia to have outpatient chemotherapy. DW Rafael Stoddard DO, PGY-1 <Blanco Rivera - Last Filed: 12/08/16 14:30> Objective - Vital Signs/Intake and Output Vital Signs (last 24 hours): Temp Pulse Resp BP Pulse Ox 98.9 F 101 H 20 133/81 97 08/06/17 08:17 12/08/16 08:17 12/08/16 08:17 12/08/16 08:17 12/08/16 08:17 Intake and Output: 12/08/16 12/08/16 06:59 18:59 Intake Total 1400 Output Total 1050 Balance 350 - Medications Medications: Current Medications Calcium/Vitamin D (Oyster Shell Calcium/Vitamin D 500 Mg-200 Iu) 1 tab PO DAILY [facility] Last Admin: 12/08/16 11:00 Dose: 1 tab Enoxaparin Sodium (Lovenox) 90 mg SC Q12 [facility] Last Admin: 12/08/16 11:00 Dose: 90 mg Gabapentin (Neurontin) 100 mg PO TID [facility] Last Admin: 12/08/16 13:49 Dose: 100 mg Hydromorphone HCl (Dilaudid) 0.5 mg IVP Q4H PRN PRN Reason: Pain, moderate (4-7) Last Admin: 11/26/16 23:28 Dose: 0.5 mg Hydroxyzine HCl (Atarax) 25 mg PO Q6 PRN PRN Reason: Anxiety Dextrose (Dextrose 10% In Water) 1,000 mls @ 50 mls/hr IV .Q20H [facility] Last Admin: 12/07/16 20:26 Dose: 50 mls/hr Imipenem/Cilastatin Sodium 500 (mg/ Sodium Chloride) 100 mls @ 100 mls/hr IVPB Q6H [facility] Last Admin: 12/08/16 11:56 Dose: 100 mls/hr Ampicillin 2 gm/ Sodium (Chloride) 100 mls @ 50 mls/hr IVPB Q6H [facility] Last Admin: 12/08/16 13:49 Dose: 50 mls/hr Insulin Aspart (Novolog) 0 unit SC ACHS [facility] PRN Reason: Protocol Last Admin: 12/08/16 11:59 Dose: 6 unit Insulin Detemir (Levemir) 15 unit SC DAILY [facility] Last Admin: 12/05/16 12:13 Dose: 15 unit Loperamide HCl (Imodium) 2 mg PO QID PRN PRN Reason: Diarrhea Last Admin: 12/08/16 11:48 Dose: 2 mg Midodrine (Proamatine) 2.5 mg PO TID [facility] Last Admin: 12/08/16 13:50 Dose: 2.5 mg Ondansetron HCl (Zofran Inj) 4 mg IVP Q6H PRN PRN Reason: Nausea/Vomiting Last Admin: 11/28/16 12:06 Dose: 4 mg Pantoprazole Sodium (Protonix Ec Tab) 40 mg PO DAILY [facility] Last Admin: 12/08/16 11:00 Dose: 40 mg Potassium Phos/Sodium Phos (Neutra-Phos) 1 pkt PO TID [facility] Stop: 12/08/16 23:59 Last Admin: 12/08/16 13:50 Dose: 1 pkt Saccharomyces Boulardii (Florastor) 250 mg PO BID [facility] Last Admin: 12/08/16 11:00 Dose: 250 mg Sertraline HCl (Zoloft) 50 mg PO DAILY [facility] Last Admin: 12/08/16 11:00 Dose: 50 mg Zolpidem Tartrate (Ambien) 5 mg PO HS PRN PRN Reason: Insomnia Last Admin: 12/03/16 21:31 Dose: 5 mg - Labs Labs: 12/08/16 07:15 12/08/16 07:15 PT 15.0 SECONDS (9.7-12.2) H 12/03/16 07:08 INR 1.3 12/03/16 07:08 APTT 37 SECONDS (21-34) H 12/03/16 07:08 Attending/Attestation - Attestation I have personally seen and examined this patient.: Yes I have fully participated in the care of the patient.: Yes I have reviewed all pertinent clinical information, including history, physical exam and plan: Yes Notes (Text): 12/08/16 14:29 Patient was seen and examined at bedside with the resident Patient does not have any new complaints. CT scan of the abdomen and pelvis report reviewed. Patient has intra-abdominal abscess. IR evaluation requested for drainage We will continue antibiotic as per recommendations of ID I discussed the plan of care with the resident agree with the assessment plan recommended above.
--- NOTE | 2016-12-08 07:37 | CP.PCM.PN ---
<Brittni Delacruz - Last Filed: 12/08/16 14:23> Subjective - Date & Time of Evaluation Date of Evaluation: 12/08/16 Time of Evaluation: 07:20 - Subjective Subjective: PGY2 medicine note for Dr. Rivera: Patient seen and examined at bedside. Patient reports he feels okay today. No change from previous days. Seems to be sad/depressed. Patient is tolerating his diet. He states he is weak and is not able to get out of bed or sit in the chair. NO new complaints today. Denied any fever, chills, SOB, cough, abdominal pain, n/v/, or urinary symptoms. Objective - Vital Signs/Intake and Output Vital Signs (last 24 hours): Temp Pulse Resp BP Pulse Ox 97.5 F L 98 H 20 98/61 L 99 12/07/16 23:50 12/07/16 23:50 12/07/16 23:50 12/07/16 23:50 12/07/16 23:50 Intake and Output: 12/08/16 12/08/16 06:59 18:59 Intake Total 700 Output Total 1050 Balance -350 - Medications Medications: Current Medications Calcium/Vitamin D (Oyster Shell Calcium/Vitamin D 500 Mg-200 Iu) 1 tab PO DAILY [facility] Last Admin: 12/07/16 09:28 Dose: 1 tab Enoxaparin Sodium (Lovenox) 90 mg SC Q12 [facility] Last Admin: 12/07/16 22:13 Dose: 90 mg Gabapentin (Neurontin) 100 mg PO TID [facility] Last Admin: 12/07/16 18:37 Dose: 100 mg Hydromorphone HCl (Dilaudid) 0.5 mg IVP Q4H PRN PRN Reason: Pain, moderate (4-7) Last Admin: 11/26/16 23:28 Dose: 0.5 mg Hydroxyzine HCl (Atarax) 25 mg PO Q6 PRN PRN Reason: Anxiety Dextrose (Dextrose 10% In Water) 1,000 mls @ 50 mls/hr IV .Q20H [facility] Last Admin: 12/07/16 20:26 Dose: 50 mls/hr Imipenem/Cilastatin Sodium 500 (mg/ Sodium Chloride) 100 mls @ 100 mls/hr IVPB Q6H [facility] Last Admin: 12/08/16 05:34 Dose: 100 mls/hr Insulin Aspart (Novolog) 0 unit SC ACHS [facility] PRN Reason: Protocol Last Admin: 12/07/16 22:00 Dose: Not Given Insulin Detemir (Levemir) 15 unit SC DAILY [facility] Last Admin: 12/05/16 12:13 Dose: 15 unit Loperamide HCl (Imodium) 2 mg PO QID PRN PRN Reason: Diarrhea Last Admin: 12/07/16 12:26 Dose: 2 mg Midodrine (Proamatine) 2.5 mg PO TID [facility] Last Admin: 12/07/16 18:39 Dose: 2.5 mg Ondansetron HCl (Zofran Inj) 4 mg IVP Q6H PRN PRN Reason: Nausea/Vomiting Last Admin: 11/28/16 12:06 Dose: 4 mg Pantoprazole Sodium (Protonix Ec Tab) 40 mg PO DAILY [facility] Last Admin: 12/07/16 09:28 Dose: 40 mg Potassium Phos/Sodium Phos (Neutra-Phos) 1 pkt PO TID [facility] Stop: 12/08/16 23:59 Last Admin: 12/07/16 18:37 Dose: 1 pkt Saccharomyces Boulardii (Florastor) 250 mg PO BID [facility] Last Admin: 12/07/16 18:37 Dose: 250 mg Sertraline HCl (Zoloft) 50 mg PO DAILY [facility] Last Admin: 12/07/16 09:28 Dose: 50 mg Zolpidem Tartrate (Ambien) 5 mg PO HS PRN PRN Reason: Insomnia Last Admin: 12/03/16 21:31 Dose: 5 mg - Labs Labs: 12/07/16 06:32 12/07/16 06:32 PT 15.0 SECONDS (9.7-12.2) H 12/03/16 07:08 INR 1.3 12/03/16 07:08 APTT 37 SECONDS (21-34) H 12/03/16 07:08 - Constitutional Appears: Non-toxic, No Acute Distress, Chronically Ill - Eye Exam Eye Exam: EOMI, Normal appearance Pupil Exam: NORMAL ACCOMODATION - ENT Exam ENT Exam: Mucous Membranes Moist - Respiratory Exam Respiratory Exam: Decreased Breath Sounds, Rales, NORMAL BREATHING PATTERN. absent: Accessory Muscle Use, Respiratory Distress - Cardiovascular Exam Cardiovascular Exam: REGULAR RHYTHM, +S1, +S2 - GI/Abdominal Exam GI & Abdominal Exam: Soft, Normal Bowel Sounds. absent: Distended, Firm, Guarding, Tenderness Additional comments: jody removed from abd incision. dressing c/d/i - Extremities Exam Extremities Exam: Pedal Edema Additional comments: 3+ edema n all extremities - Back Exam Back Exam: NORMAL INSPECTION. absent: CVA tenderness (L), CVA tenderness (R), paraspinal tenderness - Neurological Exam Neurological Exam: Alert, Awake, CN II-XII Intact, Oriented x3 - Psychiatric Exam Psychiatric exam: Depressed - Skin Skin Exam: Dry, Intact, Normal Color, Warm Assessment and Plan - Assessment and Plan (Free Text) Assessment: Bacteremia Assessment & Plan: Patient's vitals improving. Still BP lower. Afebrile 24 hours. Blood culture + one bottle for gram neg rods. CT abd/pelvis 12/07 showed enlargement of pelvic abscess, will consult IR for possible draining of abscess. - On Primaxin 400mg IVPB Q6 hours (started 12/06) - Start Ampicillin 2grams IVPB Q6 hours (started 12/08) - Was given 2 doses of Gentamicin on 12/07 and 12/06 12/06: Tachycardia, hypotensive, with bandemia at 27. Pt was jesus cultured. DC Rocephin. Was given a stat dose of Gentamycin and restarted on Primaxin. Possible source PICC line or RIJ Portacath. F/U cultures, lactate level Continued hypotension, started on Midodrin 2.5mg PO TID Continue on Ceftriaxone 2 gm IV Q24H for 14 days starting 11/29/16. Leukocytosis resolved. 11/30/17: As per ID, Repeat blood culture was negative, Primaxin and Flagyl was discontinued (11/29/16). Ceftriaxone 2 gm IV Q24H for 14 days starting 11/29/16 11/29/16: E. coli in blood culture on 11/15/16. Repeat blood culture on 11/23/16 was finalized as negative. I will speak with ID Dr. Burns concerning how much longer we need to continue the Primaxin and Flagyl 11/27: wbc trending down. afebrile. will continue primaxin and flagyl and monitor bands and wbc. Blood cultures negative after 3 days. 11/26: Patient in ICU for monitoring post OR, Bands 12 today, will monitor. 11/25: Blood cultures are negative after [address] Burns, con't tx for minimum of 14 days; Primaxin and Flagyl both started on 11/17. 11/19: HIV screen negative, Hep panel negative. Bands 26 today. 11/18: HIV 1&2 antibodies, Hep panel were ordered today. ID has been consulted, Dr Burns, we will follow his recommendations. 11/17: Changed to IV Primaxin 500mg IV Q6 Follow cultures. Currently blood pressure and HR stable. Nonfebrile. Continue with the IVF, monitor lowe outputs Status: Acute VRE + Urine Assessment & Plan: hemoglobin is stable today 8.8 Urine culture from lowe 12/06 shows UTI +VRE Dr. Burns ID informed Start Ampicillin 2grams IVPB Q6 hours (started 12/08) Contact precautions Status: Acute Anemia of chronic disease Assessment & Plan: hemoglobin is stable today 8.8 S/P transfusion total 2 units PRBCs 12/06 PATIENT ACCESS REPRESENTATIVE was called on patient 12/04/16 due hypotension. Lasix was discontinued. He was given a fluid bolus, albumin and continued with the 1 unit of PRBCs. Patient was given albumin again today. And will be transfused another unit of PRBCs due to hemoglobin of 7.8. H/H was 7.7/27.4 - Consent retrieved- patient will be transfused 1 unit of PRBCs 11/26: After discussing with Heme/Onc Dr Garcia, since Ferritin is normal ferrlecit will not provide much benefit, will discontinue 11/25: Will start Ferrlecit 125mg iv daily after surgical procedure 11/25: Hgb stable at 8.6. Status: Acute Uncontrolled diabetes mellitus Assessment & Plan: Levemir 15 units SC HS--->HELD due to hypoglycemic episodes. D10 discontinued today will monitor sugars and add back Levemir as needed Recent HgbA1C: 11.5 (11/20/16) Accuchecks Aspart ISS - low Status: Chronic Chronic diarrhea Assessment & Plan: 12/06 C diff negative - Immodium added Secondary to 2/2 10 cm Unresectable Rectosigmoid Mass POD #3 RIJ Portacath insertion (12/03), s/p exploratory laparotomy (11/26) POD#10, w/ findings of unresectable rectosigmoid mass. 12/02/16 POD #6; Surgery will remove abdominal incision jody on POD #10. Surgery reconsulted for portacath placement. NPO past midnight tonight for OR tomorrow morning. 11/30/16: POD # 4: As per conversation with Dr. Lake Harris on 11/29/16, patient has decided to be DNR/DNI 11/29/16: POD #3. Patient is still undecided concerning further management. If he decides to proceed then he will need a Chemo Port placed. He has signed DNR/ DNI. I discussed patient's decision concerning further treatment with Dr. Willow Garcia on the night of 11/28/1611/28: s/p exploratory laparotomy POD2, w/ findings of unresectable rectosigmoid mass. Patient stated today he does not want the chemoport, he said he wants time to think about it. Patient appears tired and he does not want to make sudden decisions. No morning labs, blood draw was difficult this morning due to poor vein access. 11/27: s/p exploratory laparotomy POD1, w/ findings of unresectable rectosigmoid mass. Per surgery note, patient will need a portacath placement, time and date to be determined. Will stop heparin drip (tx for RUE deep vein thrombosis) 4 hours prior to portacath placement procedure. 11/26: Per residential air sealing technician, the surgery today to resect patient's sigmoid mass was halted after it was determined the mass was too large/firm for removal. The patient will be treated with a neoadjuvant with hopes of shrinking the size of the tumor with possible surgery for removal at a later date. Patient was sent to ICU post OR for monitoring. 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 Due to lovenox longer half life, therapeutic lovenox was discontinued and heparin was started. Heparin 8000u iv bolus was given and heparin drip was started at 18u/kg/hr. This drip will be stopped at exactly 5am, 4 hours before surgery. 11/21: Pt s/p cystoscopy today. Patient found to have invasion to dome of urinary bladder. Surgery to plan for surgery some time next week 11/21: Per GI, Abdominal U/S obtained to rule out SV thrombosis given presence of gastroesopahgeal varices seen on endoscopic examination -> Abdominal U/S: 1. Hepatocellular disease without focal hepatic mass. 2. Patent portal venous system including splenic vein. 3. Cholelithiasis. No sonographic evidence of acute cholecystitis. 4. Cystic mass in the head of the pancreas. Remainder the pancreas is not visualized. 11/21: PICC placed today by IR DR Armando. 11/20: s/p upper EUS: "LA grade C erosive esophagitis. 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 75mm x 65mm psedocyst seen in pancreatic body, fine needle aspiration for fluid performed. Varices were visualized endosonographically in fundus of stomach". Will f/u cystology and CEA levels. 11/20: s/p venous duplex of upper extremities: "right: acute thrombosis of right subclavian, axillary and brachial veins with severe reduction of venous return. left: acute thrombosis of left cephatlic vein with severe reduction of venous return". Therapeutic lovenox started -> 90mg q12 sc. 11/20: s/p venous duplex of lower extremeties: negative 11/19: GI to perform EUS tomorrow. Advanced diet to liquid - will advance as tolerated. B/l upper and lower extremity duplex scans were ordered today. 11/18: Patient is s/p EGD/Colonoscopy. A 10cm partially obstructing sigmoid mass was seen and biopsied. Multiple polyps were seen and resected. Heme/Onc, Dr Garcia has been consulted, we will follow up with his recommendations. CT chest abdomen and pelvis findings as noted: suspected sigmoid and proximal rectum mass lesion without evidence of high grade bowel obstruction; suspected abscess formation; cystic mass lesion noted at pancreas with surrounding fat stranding of the pancreatic tail; large gallstones without evidence of acute cholecystitis GI consult (Dr. Srivastava)---> Help appreciated General Surgery Consult (Dr. Amin)----> Help appreciated Urology Consult (Dr. Jon)----> Help appreciated Stool culture negative for salmonella, shigella, campylobacter Stool leukocytes negative Ova and parasites not seen C. diffi toxin AB negative Status: Acute Acute deep vein thrombosis (DVT) of right upper extremity Assessment & Plan: Continue therapeutic Lovenox at 90 mg SC Q12H - RESUMED 11/29: Heparin Drip was discontinued on 11/28/16 as PTT could not be measured secondary to inability to draw blood from edematous arms and could not draw blood from left arm PICC for the PTT level due to the Heprin Drip being infused through the PICC. Therefore patient was restarted on therapeutic Lovenox at 90 mg SC Q12H 11/27: Heparin drip restarted at 18u/kg/hr. Heparin bolus 8,000u given prior to start of drip. 11/26: Per surgery, plan is to restart anticoagulant tomorrow morning Status: Acute Pleural Effusions Repeat CXR today shows: Decreased bilateral pleural effusion. Probable linear atelectasis at left base. CXR 12/02 compared to 11/15 --> B/L pleural effusions R>L. Was placed on lasix 20mg IVP Q12. Pulmonology consulted, Dr. Mccormick - patient is for thoracentesis. IR reported not enough fluid for thoracentesis. Esophageal abrasion Assessment & Plan: 11/18: Per endoscopy report * Ulcerated mucosa in the lower third of the esophagus was seen and biopsied. * Patient is on Protonix 40 mg PO BID. Status: Acute Pancreatic lesion Assessment & Plan: GI outpatient follow-up 11/26: Pancreatic cyst FNA negative for malignant cells per cytology report. 11/25: Per slab off mill tender, EUS performed on 11/20 sampled pancreatic cyst fluid with diagnostic studies ordered for ptf amylase and ptf CEA only 11/20: Upper EUS performed today: "75mm x 65mm psedocyst seen in pancreatic body , fine needle aspiration for fluid performed 11/18: CT abd/pelvis shows cystic mass lesion at pancreas with fat stranding of pacreatic tail. Lipase level and lipid panel was ordered today. 11/17: CA 19-9 wnl Status: Acute Cholelithiasis Assessment & Plan: GI outpatient follow-up 11/18: CT abd/pelvis shows large gallstones without evidence of acute cholecystitis. Denies abd pain Status: Acute Abnormal cardiovascular stress test Assessment & Plan: Cardiology outpatient follow-up 11/25: Nuclear Stress Test: Defect in mid-anteroseptal wall, defect in basal inferoseptal wall, fixed apical defect old NV, small defect inferior wall 11/25: ECHO: left ventricle systolic function is normal. EF is 50-55%. Status: Acute Major Depressive Disorder Assessment & Plan: Dr. Loredo consulted, help appreciated Zoloft 50mg PO daily Psychoeducation Status: Acute Prophylactic measure Assessment & Plan: Protonix 40 mg PO BID Lovenox 90mg IV q12H Florastor PO BID Ambien 5 mg PO HS Glucerna Shake 3 times a day help increase his protein level Physical Therapy started on 11/29/16 Status: Acute Disposition: Patient will be discharged home once medically stable and instructed to follow up with the [facility] for a referral for Dr. Garcia to have outpatient chemotherapy. <Blnaco Rivera - Last Filed: 12/08/16 14:48> Objective - Vital Signs/Intake and Output Vital Signs (last 24 hours): Temp Pulse Resp BP Pulse Ox 98.9 F 101 H 20 133/81 97 12/08/16 08:17 12/08/16 08:17 12/08/16 08:17 12/08/16 08:17 12/08/16 08:17 Intake and Output: 12/08/16 12/08/16 06:59 18:59 Intake Total 1400 Output Total 1050 Balance 350 - Medications Medications: Current Medications Calcium/Vitamin D (Oyster Shell Calcium/Vitamin D 500 Mg-200 Iu) 1 tab PO DAILY [facility] Last Admin: 12/08/16 11:00 Dose: 1 tab Enoxaparin Sodium (Lovenox) 90 mg SC Q12 [facility] Last Admin: 12/08/16 11:00 Dose: 90 mg Gabapentin (Neurontin) 100 mg PO TID [facility] Last Admin: 12/08/16 13:49 Dose: 100 mg Hydromorphone HCl (Dilaudid) 0.5 mg IVP Q4H PRN PRN Reason: Pain, moderate (4-7) Last Admin: 11/26/16 23:28 Dose: 0.5 mg Hydroxyzine HCl (Atarax) 25 mg PO Q6 PRN PRN Reason: Anxiety Dextrose (Dextrose 10% In Water) 1,000 mls @ 50 mls/hr IV .Q20H [facility] Last Admin: 12/07/16 20:26 Dose: 50 mls/hr Imipenem/Cilastatin Sodium 500 (mg/ Sodium Chloride) 100 mls @ 100 mls/hr IVPB Q6H [facility] Last Admin: 12/08/16 11:56 Dose: 100 mls/hr Ampicillin 2 gm/ Sodium (Chloride) 100 mls @ 50 mls/hr IVPB Q6H [facility] Last Admin: 12/08/16 13:49 Dose: 50 mls/hr Gentamicin Sulfate/Sodium Chloride (Gentamicin Iv 80 Mg Premix) 80 mg in 100 mls @ 200 mls/hr IVPB ONCE ONE Stop: 12/08/16 15:06 Insulin Aspart (Novolog) 0 unit SC ACHS [facility] PRN Reason: Protocol Last Admin: 12/08/16 11:59 Dose: 6 unit Insulin Detemir (Levemir) 15 unit SC DAILY [facility] Last Admin: 12/05/16 12:13 Dose: 15 unit Loperamide HCl (Imodium) 2 mg PO QID PRN PRN Reason: Diarrhea Last Admin: 12/08/16 11:48 Dose: 2 mg Midodrine (Proamatine) 2.5 mg PO TID [facility] Last Admin: 12/08/16 13:50 Dose: 2.5 mg Ondansetron HCl (Zofran Inj) 4 mg IVP Q6H PRN PRN Reason: Nausea/Vomiting Last Admin: 11/28/16 12:06 Dose: 4 mg Pantoprazole Sodium (Protonix Ec Tab) 40 mg PO DAILY [facility] Last Admin: 12/08/16 11:00 Dose: 40 mg Potassium Phos/Sodium Phos (Neutra-Phos) 1 pkt PO TID [facility] Stop: 12/08/16 23:59 Last Admin: 12/08/16 13:50 Dose: 1 pkt Saccharomyces Boulardii (Florastor) 250 mg PO BID [facility] Last Admin: 12/08/16 11:00 Dose: 250 mg Sertraline HCl (Zoloft) 50 mg PO DAILY [facility] Last Admin: 12/08/16 11:00 Dose: 50 mg Zolpidem Tartrate (Ambien) 5 mg PO HS PRN PRN Reason: Insomnia Last Admin: 12/03/16 21:31 Dose: 5 mg - Labs Labs: 12/08/16 07:15 12/08/16 07:15 PT 15.0 SECONDS (9.7-12.2) H 12/03/16 07:08 INR 1.3 12/03/16 07:08 APTT 37 SECONDS (21-34) H 12/03/16 07:08 Attending/Attestation - Attestation I have personally seen and examined this patient.: Yes I have fully participated in the care of the patient.: Yes I have reviewed all pertinent clinical information, including history, physical exam and plan: Yes Notes (Text): 12/08/16 14:47 Patient seen and examined at bedside with the resident neck and patient is lying in bed and states that he is comfortable However patient's CAT scan report reviewed and it shows enlargement of the intra -abdominal abscess We have requested IR for CT-guided drainage of the abscess Patient's urine culture came out positive for VRE Started on ampicillin as per ID recommendation I discussed the plan of care with the resident agree with the above history and physical and assessment/plan by the resident.
[2016-12-08 07:43] LABS: BASO % 0.2 % (0.0-2.0); EOS % 0.4 % (0.0-4.0); HEMATOCRIT 26.6 % (35.0-51.0); LYMPH # 0.6 K/uL (1.0-4.3); LYMPH % 7.5 % (20.0-40.0); MEAN CELL VOLUME 79.5 fL (80.0-94.0); MEAN CORPUSCULAR HEMOGLOBIN 26.4 pg (27.0-31.0); MEAN CORPUSCULAR HGB CONC 33.2 g/dL (33.0-37.0); MEAN PLATELET VOLUME 9.4 fL (7.2-11.7); MONO # 0.6 K/uL (0.0-0.8); MONO % 7.5 % (0.0-10.0); PLATELET COUNT 139 K/uL (130-400); RED CELL DISTRIBUTION WIDTH 24.3 % (11.5-14.5); WHITE BLOOD COUNT 8.6 K/uL (4.8-10.8)
[2016-12-08 08:09] LABS: CHLORIDE 95 mmol/L (98-107)
[2016-12-08 08:10] LABS: POTASSIUM 3.9 mmol/L (3.6-5.2); SODIUM 131 mmol/L (132-148)
[2016-12-08 08:12] LABS: ALB/GLOB RATIO 0.6 (1.0-2.1); BILIRUBIN,TOTAL 0.9 mg/dL (0.2-1.3); CARBON DIOXIDE 28 mmol/L (22-30); GFR AFRICAN-AMERICAN > 60
[2016-12-08 08:13] LABS: ALKALINE PHOSPHATASE 233 U/L (38-126); ALT/SGPT 33 U/L (21-72); AST/SGOT 22 U/L (17-59); BLOOD UREA NITROGEN 10 mg/dL (9-20); CALCIUM 6.4 mg/dl (8.6-10.4); GLUCOSE,RANDOM 246 mg/dL (75-110); PHOSPHOROUS 3.5 mg/dL (2.5-4.5)
[2016-12-08 08:14] LABS: MAGNESIUM 1.8 mg/dL (1.6-2.3)
[2016-12-08] MEDS: (Novolog) Insulin Aspart, Recombinant 100 u/ml 10 ml vial SC SCH ×4 (08:27→22:59)
[2016-12-08 09:47] LABS: NEUTROPHIL 69 % (50-75); TOTAL CELLS COUNTED 100
[2016-12-08] MEDS: Pantoprazole 40 mg EC Tab PO SCH (11:00)
[2016-12-08] MEDS: Calcium-Vit D 500 mg-200 Units Tab UD PO SCH (11:00)
[2016-12-08] MEDS: Potassium & Sodium Phosphate PO SCH ×3 (11:00→18:00)
[2016-12-08] MEDS: Saccharomyces Boulardi 250 mg Cap PO SCH ×2 (11:00→18:00)
[2016-12-08] MEDS: Enoxaparin 100 mg Syringe SC SCH ×2 (11:00→22:59)
--- NOTE | 2016-12-08 14:36 | CP.PCM.PN ---
Subjective - Date & Time of Evaluation Date of Evaluation: 12/08/16 Time of Evaluation: 09:00 - Subjective Subjective: repeat cultures positive has abscess which may need to be drained iv rx adjusted poor prognosis Objective - Vital Signs/Intake and Output Vital Signs (last 24 hours): Temp Pulse Resp BP Pulse Ox 98.9 F 101 H 20 133/81 97 12/08/16 08:17 12/08/16 08:17 12/08/16 08:17 12/08/16 08:17 12/08/16 08:17 Intake and Output: 12/08/16 12/08/16 06:59 18:59 Intake Total 1400 Output Total 1050 Balance 350 - Medications Medications: Current Medications Calcium/Vitamin D (Oyster Shell Calcium/Vitamin D 500 Mg-200 Iu) 1 tab PO DAILY [facility] Last Admin: 12/08/16 11:00 Dose: 1 tab Enoxaparin Sodium (Lovenox) 90 mg SC Q12 [facility] Last Admin: 12/08/16 11:00 Dose: 90 mg Gabapentin (Neurontin) 100 mg PO TID [facility] Last Admin: 12/08/16 13:49 Dose: 100 mg Hydromorphone HCl (Dilaudid) 0.5 mg IVP Q4H PRN PRN Reason: Pain, moderate (4-7) Last Admin: 11/26/16 23:28 Dose: 0.5 mg Hydroxyzine HCl (Atarax) 25 mg PO Q6 PRN PRN Reason: Anxiety Dextrose (Dextrose 10% In Water) 1,000 mls @ 50 mls/hr IV .Q20H [facility] Last Admin: 12/07/16 20:26 Dose: 50 mls/hr Imipenem/Cilastatin Sodium 500 (mg/ Sodium Chloride) 100 mls @ 100 mls/hr IVPB Q6H [facility] Last Admin: 12/08/16 11:56 Dose: 100 mls/hr Ampicillin 2 gm/ Sodium (Chloride) 100 mls @ 50 mls/hr IVPB Q6H [facility] Last Admin: 12/08/16 13:49 Dose: 50 mls/hr Insulin Aspart (Novolog) 0 unit SC ACHS [facility] PRN Reason: Protocol Last Admin: 12/08/16 11:59 Dose: 6 unit Insulin Detemir (Levemir) 15 unit SC DAILY [facility] Last Admin: 12/05/16 12:13 Dose: 15 unit Loperamide HCl (Imodium) 2 mg PO QID PRN PRN Reason: Diarrhea Last Admin: 12/08/16 11:48 Dose: 2 mg Midodrine (Proamatine) 2.5 mg PO TID [facility] Last Admin: 12/08/16 13:50 Dose: 2.5 mg Ondansetron HCl (Zofran Inj) 4 mg IVP Q6H PRN PRN Reason: Nausea/Vomiting Last Admin: 11/28/16 12:06 Dose: 4 mg Pantoprazole Sodium (Protonix Ec Tab) 40 mg PO DAILY [facility] Last Admin: 12/08/16 11:00 Dose: 40 mg Potassium Phos/Sodium Phos (Neutra-Phos) 1 pkt PO TID [facility] Stop: 12/08/16 23:59 Last Admin: 12/08/16 13:50 Dose: 1 pkt Saccharomyces Boulardii (Florastor) 250 mg PO BID [facility] Last Admin: 12/08/16 11:00 Dose: 250 mg Sertraline HCl (Zoloft) 50 mg PO DAILY [facility] Last Admin: 12/08/16 11:00 Dose: 50 mg Zolpidem Tartrate (Ambien) 5 mg PO HS PRN PRN Reason: Insomnia Last Admin: 12/03/16 21:31 Dose: 5 mg - Labs Labs: 12/08/16 07:15 12/08/16 07:15 PT 15.0 SECONDS (9.7-12.2) H 12/03/16 07:08 INR 1.3 12/03/16 07:08 APTT 37 SECONDS (21-34) H 12/03/16 07:08 Assessment and Plan (1) Chronic diarrhea Status: Deleted (2) Colonic mass Status: Acute (3) Diabetic ketosis Status: Acute (4) GI bleeding Status: Acute (5) E coli bacteremia Status: Acute (6) E coli bacteremia Status: Acute
[2016-12-08] MEDS ORDERED: Gentamicin 80 mg in 0.9% NS 80 MG/100 ML BAG IVPB ONE (14:37)
--- NOTE | 2016-12-08 22:08 | CP.PCM.PN ---
Subjective - Date & Time of Evaluation Date of Evaluation: 12/07/16 Time of Evaluation: 17:00 - Subjective Subjective: Has some abdominal discomfort Increasing pelvis abscess noted on CT Objective - Vital Signs/Intake and Output Vital Signs (last 24 hours): Temp Pulse Resp BP Pulse Ox 98.8 F 98 H 20 103/67 97 12/08/16 15:42 12/08/16 15:42 12/08/16 15:42 12/08/16 15:42 12/08/16 15:42 Intake and Output: 12/08/16 12/09/16 18:59 06:59 Intake Total 800 Output Total 350 Balance 450 - Medications Medications: Current Medications Calcium/Vitamin D (Oyster Shell Calcium/Vitamin D 500 Mg-200 Iu) 1 tab PO DAILY PENDING [facility] TO [facility] Last Admin: 12/08/16 11:00 Dose: 1 tab Enoxaparin Sodium (Lovenox) 90 mg SC Q12 [facility] Last Admin: 12/08/16 11:00 Dose: 90 mg Gabapentin (Neurontin) 100 mg PO TID [facility] Last Admin: 12/08/16 18:00 Dose: 100 mg Hydromorphone HCl (Dilaudid) 0.5 mg IVP Q4H PRN PRN Reason: Pain, moderate (4-7) Last Admin: 11/26/16 23:28 Dose: 0.5 mg Hydroxyzine HCl (Atarax) 25 mg PO Q6 PRN PRN Reason: Anxiety Dextrose (Dextrose 10% In Water) 1,000 mls @ 50 mls/hr IV .Q20H [facility] Last Admin: 12/07/16 20:26 Dose: 50 mls/hr Imipenem/Cilastatin Sodium 500 (mg/ Sodium Chloride) 100 mls @ 100 mls/hr IVPB Q6H [facility] Last Admin: 12/08/16 18:04 Dose: 100 mls/hr Ampicillin 2 gm/ Sodium (Chloride) 100 mls @ 50 mls/hr IVPB Q6H [facility] Last Admin: 12/08/16 19:22 Dose: 50 mls/hr Insulin Aspart (Novolog) 0 unit SC ACHS [facility] PRN Reason: Protocol Last Admin: 12/08/16 17:18 Dose: 4 unit Insulin Detemir (Levemir) 15 unit SC DAILY [facility] Last Admin: 12/05/16 12:13 Dose: 15 unit Loperamide HCl (Imodium) 2 mg PO QID PRN PRN Reason: Diarrhea Last Admin: 12/08/16 11:48 Dose: 2 mg Midodrine (Proamatine) 2.5 mg PO TID [facility] Last Admin: 12/08/16 18:00 Dose: 2.5 mg Ondansetron HCl (Zofran Inj) 4 mg IVP Q6H PRN PRN Reason: Nausea/Vomiting Last Admin: 11/28/16 12:06 Dose: 4 mg Pantoprazole Sodium (Protonix Ec Tab) 40 mg PO DAILY [facility] Last Admin: 12/08/16 11:00 Dose: 40 mg Potassium Phos/Sodium Phos (Neutra-Phos) 1 pkt PO TID [facility] Stop: 12/08/16 23:59 Last Admin: 12/08/16 18:00 Dose: 1 pkt Saccharomyces Boulardii (Florastor) 250 mg PO BID [facility] Last Admin: 12/08/16 18:00 Dose: 250 mg Sertraline HCl (Zoloft) 50 mg PO DAILY [facility] Last Admin: 12/08/16 11:00 Dose: 50 mg Zolpidem Tartrate (Ambien) 5 mg PO HS PRN PRN Reason: Insomnia Last Admin: 12/03/16 21:31 Dose: 5 mg - Labs Labs: 12/08/16 07:15 12/08/16 07:15 PT 15.0 SECONDS (9.7-12.2) H 12/03/16 07:08 INR 1.3 12/03/16 07:08 APTT 37 SECONDS (21-34) H 12/03/16 07:08 - Head Exam Head Exam: ATRAUMATIC - Eye Exam Eye Exam: Normal appearance - ENT Exam ENT Exam: Mucous Membranes Dry - Respiratory Exam Respiratory Exam: Decreased Breath Sounds - Cardiovascular Exam Cardiovascular Exam: +S1, +S2 - GI/Abdominal Exam GI & Abdominal Exam: Normal Bowel Sounds - Extremities Exam Extremities Exam: Pedal Edema - Neurological Exam Neurological Exam: Oriented x3 - Psychiatric Exam Psychiatric exam: Normal Affect, Normal Mood - Skin Skin Exam: Warm Assessment and Plan (1) Colon cancer Assessment & Plan: bladder involvement outpatient neoadjuvant chemotherapy Status: Acute (2) DVT (deep venous thrombosis) Assessment & Plan: on therapeutic anticoagulation Status: Acute (3) Anemia Assessment & Plan: chronic disease Status: Acute (4) Pancreatic lesion Assessment & Plan: s/p biopsy negative for malignancy Status: Acute
[2016-12-09 07:30] LABS: BASO % 0.4 % (0.0-2.0); EOS % 0.3 % (0.0-4.0); HEMATOCRIT 27.4 % (35.0-51.0); LYMPH # 0.9 K/uL (1.0-4.3); LYMPH % 8.4 % (20.0-40.0); MEAN CELL VOLUME 80.5 fL (80.0-94.0); MEAN CORPUSCULAR HEMOGLOBIN 26.2 pg (27.0-31.0); MEAN CORPUSCULAR HGB CONC 32.5 g/dL (33.0-37.0); MEAN PLATELET VOLUME 9.8 fL (7.2-11.7); MONO # 0.8 K/uL (0.0-0.8); MONO % 7.6 % (0.0-10.0); PLATELET COUNT 158 K/uL (130-400); RED CELL DISTRIBUTION WIDTH 23.7 % (11.5-14.5); WHITE BLOOD COUNT 10.2 K/uL (4.8-10.8)
[2016-12-09 07:58] LABS: CHLORIDE 95 mmol/L (98-107); POTASSIUM 3.7 mmol/L (3.6-5.2); SODIUM 131 mmol/L (132-148)
[2016-12-09 08:00] LABS: ALB/GLOB RATIO 0.6 (1.0-2.1); ALKALINE PHOSPHATASE 258 U/L (38-126); AST/SGOT 18 U/L (17-59); BILIRUBIN,TOTAL 0.9 mg/dL (0.2-1.3); CARBON DIOXIDE 27 mmol/L (22-30); GFR AFRICAN-AMERICAN > 60; TOTAL PROTEIN 4.2 g/dL (6.3-8.3)
[2016-12-09 08:01] LABS: ALT/SGPT 32 U/L (21-72); BLOOD UREA NITROGEN 9 mg/dL (9-20); CALCIUM 6.4 mg/dl (8.6-10.4); GLUCOSE,RANDOM 212 mg/dL (75-110); MAGNESIUM 1.7 mg/dL (1.6-2.3)
[2016-12-09] MEDS: (Novolog) Insulin Aspart, Recombinant 100 u/ml 10 ml vial SC SCH ×4 (08:43→21:13)
[2016-12-09 09:16] LABS: EOSINOPHIL 3 % (0-4); NEUTROPHIL 75 % (50-75); TOTAL CELLS COUNTED 100
[2016-12-09] MEDS: Saccharomyces Boulardi 250 mg Cap PO SCH ×2 (09:36→17:25)
[2016-12-09] MEDS: Pantoprazole 40 mg EC Tab PO SCH (09:36)
[2016-12-09] MEDS: Calcium-Vit D 500 mg-200 Units Tab UD PO SCH (09:37)
[2016-12-09] MEDS: Enoxaparin 100 mg Syringe SC SCH ×2 (09:37→21:15)
--- NOTE | 2016-12-09 13:27 | CP.PCM.PN ---
<Simin Hall - Last Filed: 12/09/16 13:36> Subjective - Date & Time of Evaluation Date of Evaluation: 12/09/16 Time of Evaluation: 07:00 - Subjective Subjective: Medicine note for Dr. Cai Patient seen and examined at bedside. Patient reports he feels okay today. No change from previous days. Seems to be sad/depressed. Patient asked if we can change his diet to smaller portions. He states he is weak and is not able to get out of bed or sit in the chair. No new complaints today. Denied any fever, chills, SOB, cough, abdominal pain, n/v/, or urinary symptoms. Objective - Vital Signs/Intake and Output Vital Signs (last 24 hours): Temp Pulse Resp BP Pulse Ox 98.2 F 94 H 20 102/69 97 12/09/16 08:22 12/09/16 11:05 12/09/16 08:22 12/09/16 08:22 12/09/16 08:22 Intake and Output: 12/09/16 12/09/16 06:59 18:59 Intake Total 900 750 Output Total 1050 Balance -150 750 - Medications Medications: Current Medications Calcium/Vitamin D (Oyster Shell Calcium/Vitamin D 500 Mg-200 Iu) 1 tab PO DAILY [facility] Last Admin: 12/09/16 09:37 Dose: 1 tab Enoxaparin Sodium (Lovenox) 90 mg SC Q12 [facility] Last Admin: 12/09/16 09:37 Dose: 90 mg Gabapentin (Neurontin) 100 mg PO TID [facility] Last Admin: 12/09/16 09:37 Dose: 100 mg Hydroxyzine HCl (Atarax) 25 mg PO Q6 PRN PRN Reason: Anxiety Imipenem/Cilastatin Sodium 500 (mg/ Sodium Chloride) 100 mls @ 100 mls/hr IVPB Q6H [facility] Last Admin: 12/09/16 12:23 Dose: 100 mls/hr Ampicillin 2 gm/ Sodium (Chloride) 100 mls @ 50 mls/hr IVPB Q6H [facility] Last Admin: 12/09/16 06:36 Dose: 50 mls/hr Insulin Aspart (Novolog) 0 unit SC ACHS [facility] PRN Reason: Protocol Last Admin: 12/09/16 12:22 Dose: 4 unit Insulin Detemir (Levemir) 15 unit SC DAILY [facility] Last Admin: 12/05/16 12:13 Dose: 15 unit Loperamide HCl (Imodium) 2 mg PO QID PRN PRN Reason: Diarrhea Last Admin: 12/08/16 11:48 Dose: 2 mg Midodrine (Proamatine) 2.5 mg PO TID [facility] Last Admin: 12/09/16 09:37 Dose: 2.5 mg Ondansetron HCl (Zofran Inj) 4 mg IVP Q6H PRN PRN Reason: Nausea/Vomiting Last Admin: 11/28/16 12:06 Dose: 4 mg Pantoprazole Sodium (Protonix Ec Tab) 40 mg PO DAILY [facility] Last Admin: 12/09/16 09:36 Dose: 40 mg Saccharomyces Boulardii (Florastor) 250 mg PO BID [facility] Last Admin: 12/09/16 09:36 Dose: 250 mg Sertraline HCl (Zoloft) 50 mg PO DAILY [facility] Last Admin: 12/09/16 09:36 Dose: 50 mg Zolpidem Tartrate (Ambien) 5 mg PO HS PRN PRN Reason: Insomnia Last Admin: 12/03/16 21:31 Dose: 5 mg - Labs Labs: 12/09/16 07:10 12/09/16 07:10 PT 15.0 SECONDS (9.7-12.2) H 12/03/16 07:08 INR 1.3 12/03/16 07:08 APTT 37 SECONDS (21-34) H 12/03/16 07:08 - Constitutional Appears: No Acute Distress - Head Exam Head Exam: NORMAL INSPECTION, NORMOCEPHALIC Additional comments: [place] - Eye Exam Eye Exam: EOMI, Normal appearance, PERRL Pupil Exam: NORMAL ACCOMODATION - ENT Exam ENT Exam: Mucous Membranes Moist, Normal Exam - Neck Exam Neck Exam: Normal Inspection - Respiratory Exam Respiratory Exam: Clear to Ausculation Bilateral, NORMAL BREATHING PATTERN - Cardiovascular Exam Cardiovascular Exam: REGULAR RHYTHM, RRR, +S1, +S2 - GI/Abdominal Exam GI & Abdominal Exam: Soft, Normal Bowel Sounds - Rectal Exam Rectal Exam: Deferred - Extremities Exam Extremities Exam: Normal Inspection. absent: Pedal Edema, Tenderness - Neurological Exam Neurological Exam: Alert, Awake, Oriented x3 - Skin Skin Exam: Dry, Intact, Normal Color, Warm Assessment and Plan - Assessment and Plan (Free Text) Plan: Bacteremia Assessment & Plan: Continues to be tachycardic, normotensive. Afebrile since 12/06/16 Blood culture + ESBL Urine Culture + VRE CT abd/pelvis 12/07 showed enlargement of pelvic abscess, will consult IR for possible draining of abscess. - On Primaxin 400mg IVPB Q6 hours (started 12/06) - Start Ampicillin 2grams IVPB Q6 hours (started 12/08) - Was given 2 doses of Gentamicin on 12/07 and 12/06 12/09: IR consulted for possible pelvic abscess drainage. Mass has increased from 8.4 x 6.9 x x 6.7 (11/16) to 12 x 15 x 8.5 (12/07) 12/06: Tachycardia, hypotensive, with bandemia at 27. Pt was jesus cultured. DC Rocephin. Was given a stat dose of Gentamycin and restarted on Primaxin. Possible source PICC line or RIJ Portacath. F/U cultures, lactate level Continued hypotension, started on Midodrin 2.5mg PO TID Continue on Ceftriaxone 2 gm IV Q24H for 14 days starting 11/29/16. Leukocytosis resolved. 11/30/17: As per ID, Repeat blood culture was negative, Primaxin and Flagyl was discontinued (11/29/16). Ceftriaxone 2 gm IV Q24H for 14 days starting 11/29/16 11/29/16: E. coli in blood culture on 11/15/16. Repeat blood culture on 11/23/16 was finalized as negative. I will speak with ID Dr. Burns concerning how much longer we need to continue the Primaxin and Flagyl 11/27: wbc trending down. afebrile. will continue primaxin and flagyl and monitor bands and wbc. Blood cultures negative after 3 days. 11/26: Patient in ICU for monitoring post OR, Bands 12 today, will monitor. 11/25: Blood cultures are negative after [address] Burns, con't tx for minimum of 14 days; Primaxin and Flagyl both started on 11/17. 11/19: HIV screen negative, Hep panel negative. Bands 26 today. 11/18: HIV 1&2 antibodies, Hep panel were ordered today. ID has been consulted, Dr Burns, we will follow his recommendations. 11/17: Changed to IV Primaxin 500mg IV Q6 Follow cultures. Currently blood pressure and HR stable. Nonfebrile. Continue with the IVF, monitor lowe outputs Status: Acute VRE + Urine Assessment & Plan: Hemoglobin is stable today 8.8 Urine culture from lowe 12/06 shows UTI +VRE Dr. Burns ID informed Start Ampicillin 2 grams IVPB Q6 hours (started 12/08), On Primaxin 400mg IVPB Q6 hours (started 12/06) Contact precautions Status: Acute Anemia of chronic disease Assessment & Plan: hemoglobin is stable today 8.9 S/P transfusion total 2 units PRBCs 12/06 CAFE ASSOCIATE was called on patient 12/04/16 due hypotension. Lasix was discontinued. He was given a fluid bolus, albumin and continued with the 1 unit of PRBCs. Patient was given albumin again today. And will be transfused another unit of PRBCs due to hemoglobin of 7.8. H/H was 7.7/27.4 - Consent retrieved- patient will be transfused 1 unit of PRBCs 11/26: After discussing with Heme/Onc Dr Garcia, since Ferritin is normal ferrlecit will not provide much benefit, will discontinue 11/25: Will start Ferrlecit 125mg iv daily after surgical procedure 11/25: Hgb stable at 8.6. 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 12/06 C diff negative - Immodium added Stool culture negative for salmonella, shigella, campylobacter Stool leukocytes negative Ova and parasites not seen S/P RIJ Portacath insertion (12/03), s/p exploratory laparotomy (11/26) POD#10, w/ findings of unresectable rectosigmoid mass. 12/02/16 POD #6; Surgery will remove abdominal incision jody on POD #10. Surgery reconsulted for portacath placement. NPO past midnight tonight for OR tomorrow morning. 11/30/16: POD # 4: As per conversation with Dr. Lake Harris on 11/29/16, patient has decided to be DNR/DNI 11/29/16: POD #3. Patient is still undecided concerning further management. If he decides to proceed then he will need a Chemo Port placed. He has signed DNR/ DNI. I discussed patient's decision concerning further treatment with Dr. Willow Garcia on the night of 11/28/1611/28: s/p exploratory laparotomy POD2, w/ findings of unresectable rectosigmoid mass. Patient stated today he does not want the chemoport, he said he wants time to think about it. Patient appears tired and he does not want to make sudden decisions. No morning labs, blood draw was difficult this morning due to poor vein access. 11/27: s/p exploratory laparotomy POD1, w/ findings of unresectable rectosigmoid mass. Per surgery note, patient will need a portacath placement, time and date to be determined. Will stop heparin drip (tx for RUE deep vein thrombosis) 4 hours prior to portacath placement procedure. 11/26: Per surgical first assistant, the surgery today to resect patient's sigmoid mass was halted after it was determined the mass was too large/firm for removal. The patient will be treated with a neoadjuvant with hopes of shrinking the size of the tumor with possible surgery for removal at a later date. Patient was sent to ICU post OR for monitoring. 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 Due to lovenox longer half life, therapeutic lovenox was discontinued and heparin was started. Heparin 8000u iv bolus was given and heparin drip was started at 18u/kg/hr. This drip will be stopped at exactly 5am, 4 hours before surgery. 11/21: Pt s/p cystoscopy today. Patient found to have invasion to dome of urinary bladder. Surgery to plan for surgery some time next week 11/21: Per GI, Abdominal U/S obtained to rule out SV thrombosis given presence of gastroesopahgeal varices seen on endoscopic examination -> Abdominal U/S: 1. Hepatocellular disease without focal hepatic mass. 2. Patent portal venous system including splenic vein. 3. Cholelithiasis. No sonographic evidence of acute cholecystitis. 4. Cystic mass in the head of the pancreas. Remainder the pancreas is not visualized. 11/21: PICC placed today by IR DR Armando. 11/20: s/p upper EUS: "LA grade C erosive esophagitis. 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 75mm x 65mm psedocyst seen in pancreatic body, fine needle aspiration for fluid performed. Varices were visualized endosonographically in fundus of stomach". Will f/u cystology and CEA levels. 11/20: s/p venous duplex of upper extremities: "right: acute thrombosis of right subclavian, axillary and brachial veins with severe reduction of venous return. left: acute thrombosis of left cephatlic vein with severe reduction of venous return". Therapeutic lovenox started -> 90mg q12 sc. 11/20: s/p venous duplex of lower extremeties: negative 11/19: GI to perform EUS tomorrow. Advanced diet to liquid - will advance as tolerated. B/l upper and lower extremity duplex scans were ordered today. 11/18: Patient is s/p EGD/Colonoscopy. A 10cm partially obstructing sigmoid mass was seen and biopsied. Multiple polyps were seen and resected. Heme/Onc, Dr Garcia has been consulted, we will follow up with his recommendations. CT chest abdomen and pelvis findings as noted: suspected sigmoid and proximal rectum mass lesion without evidence of high grade bowel obstruction; suspected abscess formation; cystic mass lesion noted at pancreas with surrounding fat stranding of the pancreatic tail; large gallstones without evidence of acute cholecystitis GI consult (Dr. Srivasatva)---> Help appreciated General Surgery Consult (Dr. Amin)----> Help appreciated Urology Consult (Dr. Jon)----> Help appreciated Status: Acute Acute deep vein thrombosis (DVT) of right upper extremity Assessment & Plan: Continue therapeutic Lovenox at 90 mg SC Q12H 11/29: Heparin Drip was discontinued on 11/28/16 as PTT could not be measured secondary to inability to draw blood from edematous arms and could not draw blood from left arm PICC for the PTT level due to the Heprin Drip being infused through the PICC. Therefore patient was restarted on therapeutic Lovenox at 90 mg SC Q12H 11/27: Heparin drip restarted at 18u/kg/hr. Heparin bolus 8,000u given prior to start of drip. 11/26: Per surgery, plan is to restart anticoagulant tomorrow morning Status: Acute Pleural Effusions Repeat CXR (12/06) shows: Decreased bilateral pleural effusion. Probable linear atelectasis at left base. CXR 12/02 compared to 11/15 --> B/L pleural effusions R>L. Was placed on lasix 20mg IVP Q12. Pulmonology consulted, Dr. Mccormick - patient is for thoracentesis. IR reported not enough fluid for thoracentesis. Esophageal abrasion Assessment & Plan: 11/18: Per endoscopy report * Ulcerated mucosa in the lower third of the esophagus was seen and biopsied. * Patient is on Protonix 40 mg PO BID. Status: Acute Pancreatic lesion Assessment & Plan: GI outpatient follow-up 11/26: Pancreatic cyst FNA negative for malignant cells per cytology report. 11/25: Per analytical lab technician, EUS performed on 11/20 sampled pancreatic cyst fluid with diagnostic studies ordered for ptf amylase and ptfCEA only 11/20: Upper EUS performed today: "75mm x 65mm psedocyst seen in pancreatic body , fine needle aspiration for fluid performed 11/18: CT abd/pelvis shows cystic mass lesion at pancreas with fat stranding of pacreatic tail. Lipase level and lipid panel was ordered today. 11/17: CA 19-9 wnl Status: Acute Cholelithiasis Assessment & Plan: GI outpatient follow-up 11/18: CT abd/pelvis shows large gallstones without evidence of acute cholecystitis. Denies abd pain Status: Acute Abnormal cardiovascular stress test Assessment & Plan: Cardiology outpatient follow-up 11/25: Nuclear Stress Test: Defect in mid-anteroseptal wall, defect in basal inferoseptal wall, fixed apical defect old UT, small defect inferior wall 11/25: ECHO: left ventricle systolic function is normal. EF is 50-55%. Status: Acute Major Depressive Disorder Assessment & Plan: Dr. Loredo consulted, help appreciated Zoloft 50mg PO daily Psychoeducation Status: Acute Prophylactic measure Assessment & Plan: Protonix 40 mg PO BID Lovenox 90mg IV q12H Florastor PO BID Ambien 5 mg PO HS Glucerna Shake 3 times a day help increase his protein level Physical Therapy started on 11/29/16 Status: Acute Disposition: Patient will be discharged home once medically stable and instructed to follow up with the [facility] for a referral for Dr. Garcia to have outpatient chemotherapy. DW Rafael Espinoza DO, PGY-1 <Abdiel Cai H - Last Filed: 12/09/16 14:42> Objective - Vital Signs/Intake and Output Vital Signs (last 24 hours): Temp Pulse Resp BP Pulse Ox 98.2 F 94 H 20 102/69 97 12/09/16 08:22 12/09/16 11:05 12/09/16 08:22 12/09/16 08:22 12/09/16 08:22 Intake and Output: 12/09/16 12/09/16 06:59 18:59 Intake Total 900 750 Output Total 1050 Balance -150 750 - Medications Medications: Current Medications Calcium/Vitamin D (Oyster Shell Calcium/Vitamin D 500 Mg-200 Iu) 1 tab PO DAILY [facility] Last Admin: 12/09/16 09:37 Dose: 1 tab Enoxaparin Sodium (Lovenox) 90 mg SC Q12 [facility] Last Admin: 12/09/16 09:37 Dose: 90 mg Gabapentin (Neurontin) 100 mg PO TID [facility] Last Admin: 12/09/16 13:32 Dose: 100 mg Hydroxyzine HCl (Atarax) 25 mg PO Q6 PRN PRN Reason: Anxiety Imipenem/Cilastatin Sodium 500 (mg/ Sodium Chloride) 100 mls @ 100 mls/hr IVPB Q6H [facility] Last Admin: 12/09/16 12:23 Dose: 100 mls/hr Ampicillin 2 gm/ Sodium (Chloride) 100 mls @ 50 mls/hr IVPB Q6H [facility] Last Admin: 12/09/16 13:30 Dose: 50 mls/hr Insulin Aspart (Novolog) 0 unit SC ACHS [facility] PRN Reason: Protocol Last Admin: 12/09/16 12:22 Dose: 4 unit Insulin Detemir (Levemir) 15 unit SC DAILY [facility] Last Admin: 12/05/16 12:13 Dose: 15 unit Loperamide HCl (Imodium) 2 mg PO QID PRN PRN Reason: Diarrhea Last Admin: 12/08/16 11:48 Dose: 2 mg Midodrine (Proamatine) 2.5 mg PO TID [facility] Last Admin: 12/09/16 09:37 Dose: 2.5 mg Ondansetron HCl (Zofran Inj) 4 mg IVP Q6H PRN PRN Reason: Nausea/Vomiting Last Admin: 11/28/16 12:06 Dose: 4 mg Pantoprazole Sodium (Protonix Ec Tab) 40 mg PO DAILY [facility] Last Admin: 12/09/16 09:36 Dose: 40 mg Saccharomyces Boulardii (Florastor) 250 mg PO BID [facility] Last Admin: 12/09/16 09:36 Dose: 250 mg Sertraline HCl (Zoloft) 50 mg PO DAILY [facility] Last Admin: 12/09/16 09:36 Dose: 50 mg Zolpidem Tartrate (Ambien) 5 mg PO HS PRN PRN Reason: Insomnia Last Admin: 12/03/16 21:31 Dose: 5 mg - Labs Labs: 12/09/16 07:10 12/09/16 07:10 PT 15.0 SECONDS (9.7-12.2) H 12/03/16 07:08 INR 1.3 12/03/16 07:08 APTT 37 SECONDS (21-34) H 12/03/16 07:08 Attending/Attestation - Attestation I have personally seen and examined this patient.: Yes I have fully participated in the care of the patient.: Yes I have reviewed all pertinent clinical information, including history, physical exam and plan: Yes Notes (Text): 12/09/16 14:40 Medical attending: Patient was seen and examined by me, agrees the above note by medical attendant. As reported above in the resident's note, there is a pelvic mass that is in the same area however it has increased in dimensional size furthermore the blood cultures returned and there is detection of ESBL Escherichia coli in the blood. The patient is ready on isolation in contact precaution for VRE does detected in the urine. As discussed previously very likely because the patient has a rectal/colonic mass that has spread into the bladder that's why we were seeing these infections. Also as reported above surgery has attempted to inspect the area laparoscopically to see if it could be movable off the rectal/colonic mass however this is not possible due to have this mass in relation the bladder So at this time hopefully IR will be indicated in their and draining the mass. The patient remains on IV any biotics at this time. Unfortunately the overall prognosis does not appear to be good at this time. Hopefully at some point get chemotherapy to shrink the or less in the size of the rectal/colonic mass Thank you so much, Abdiel Cai
--- NOTE | 2016-12-09 14:54 | CP.PCM.PN ---
Subjective - Date & Time of Evaluation Date of Evaluation: 12/09/16 Time of Evaluation: 07:30 - Subjective Subjective: SURGERY PROGRESS NOTE FOR DR. BAIRD 66M seen and examined at bedside. Patient resting comfortably, no acute events overnight. Objective - Vital Signs/Intake and Output Vital Signs (last 24 hours): Temp Pulse Resp BP Pulse Ox 98.2 F 94 H 20 102/69 97 12/09/16 08:22 12/09/16 11:05 12/09/16 08:22 12/09/16 08:22 12/09/16 08:22 Intake and Output: 12/09/16 12/09/16 06:59 18:59 Intake Total 900 750 Output Total 1050 Balance -150 750 - Medications Medications: Current Medications Calcium/Vitamin D (Oyster Shell Calcium/Vitamin D 500 Mg-200 Iu) 1 tab PO DAILY [facility] Last Admin: 12/09/16 09:37 Dose: 1 tab Enoxaparin Sodium (Lovenox) 90 mg SC Q12 [facility] Last Admin: 12/09/16 09:37 Dose: 90 mg Gabapentin (Neurontin) 100 mg PO TID [facility] Last Admin: 12/09/16 13:32 Dose: 100 mg Hydroxyzine HCl (Atarax) 25 mg PO Q6 PRN PRN Reason: Anxiety Imipenem/Cilastatin Sodium 500 (mg/ Sodium Chloride) 100 mls @ 100 mls/hr IVPB Q6H [facility] Last Admin: 12/09/16 12:23 Dose: 100 mls/hr Ampicillin 2 gm/ Sodium (Chloride) 100 mls @ 50 mls/hr IVPB Q6H [facility] Last Admin: 12/09/16 13:30 Dose: 50 mls/hr Insulin Aspart (Novolog) 0 unit SC ACHS [facility] PRN Reason: Protocol Last Admin: 12/09/16 12:22 Dose: 4 unit Insulin Detemir (Levemir) 15 unit SC DAILY [facility] Last Admin: 12/05/16 12:13 Dose: 15 unit Loperamide HCl (Imodium) 2 mg PO QID PRN PRN Reason: Diarrhea Last Admin: 12/08/16 11:48 Dose: 2 mg Midodrine (Proamatine) 2.5 mg PO TID [facility] Last Admin: 12/09/16 09:37 Dose: 2.5 mg Ondansetron HCl (Zofran Inj) 4 mg IVP Q6H PRN PRN Reason: Nausea/Vomiting Last Admin: 11/28/16 12:06 Dose: 4 mg Pantoprazole Sodium (Protonix Ec Tab) 40 mg PO DAILY [facility] Last Admin: 12/09/16 09:36 Dose: 40 mg Saccharomyces Boulardii (Florastor) 250 mg PO BID [facility] Last Admin: 12/09/16 09:36 Dose: 250 mg Sertraline HCl (Zoloft) 50 mg PO DAILY [facility] Last Admin: 12/09/16 09:36 Dose: 50 mg Zolpidem Tartrate (Ambien) 5 mg PO HS PRN PRN Reason: Insomnia Last Admin: 12/03/16 21:31 Dose: 5 mg - Labs Labs: 12/09/16 07:10 12/09/16 07:10 PT 15.0 SECONDS (9.7-12.2) H 12/03/16 07:08 INR 1.3 12/03/16 07:08 APTT 37 SECONDS (21-34) H 12/03/16 07:08 - Constitutional Appears: Non-toxic, No Acute Distress - Respiratory Exam Respiratory Exam: Clear to Ausculation Bilateral, NORMAL BREATHING PATTERN - Cardiovascular Exam Cardiovascular Exam: REGULAR RHYTHM, +S1, +S2 - GI/Abdominal Exam GI & Abdominal Exam: Soft. absent: Distended, Firm, Guarding, Rigid, Tenderness , Rebound Additional comments: bandages changed today Assessment and Plan - Assessment and Plan (Free Text) Assessment: 66 y/o male w/ colon adenocarcinoma, unresectable s/p right IJ portacath POD6, s /p ex-lap POD13 Plan: - Chemotherapy outpatient as per oncology - bandages changed today - Antibiotics as per ID for Urine/Blood cx Further recs discuss with Dr. Brennan Ponce, PGY2
[2016-12-10] MEDS: (Novolog) Insulin Aspart, Recombinant 100 u/ml 10 ml vial SC SCH ×4 (07:38→21:22)
[2016-12-10 08:12] LABS: BASO % 0.2 % (0.0-2.0); EOS % 0.2 % (0.0-4.0); HEMATOCRIT 26.6 % (35.0-51.0); LYMPH # 0.8 K/uL (1.0-4.3); LYMPH % 7.7 % (20.0-40.0); MEAN CELL VOLUME 80.8 fL (80.0-94.0); MEAN CORPUSCULAR HEMOGLOBIN 26.5 pg (27.0-31.0); MEAN CORPUSCULAR HGB CONC 32.8 g/dL (33.0-37.0); MEAN PLATELET VOLUME 9.8 fL (7.2-11.7); MONO # 0.8 K/uL (0.0-0.8); PLATELET COUNT 171 K/uL (130-400); RED CELL DISTRIBUTION WIDTH 24.2 % (11.5-14.5); WHITE BLOOD COUNT 10.1 K/uL (4.8-10.8)
[2016-12-10 08:30] LABS: CHLORIDE 96 mmol/L (98-107); SODIUM 133 mmol/L (132-148)
[2016-12-10 08:33] LABS: ALB/GLOB RATIO 0.6 (1.0-2.1); ALKALINE PHOSPHATASE 257 U/L (38-126); AST/SGOT 19 U/L (17-59); BILIRUBIN,TOTAL 0.9 mg/dL (0.2-1.3); BLOOD UREA NITROGEN 9 mg/dL (9-20); CARBON DIOXIDE 27 mmol/L (22-30); GFR AFRICAN-AMERICAN > 60; GLUCOSE,RANDOM 155 mg/dL (75-110); TOTAL PROTEIN 4.2 g/dL (6.3-8.3)
[2016-12-10 08:34] LABS: ALT/SGPT 31 U/L (21-72); CALCIUM 6.5 mg/dl (8.6-10.4); MAGNESIUM 1.7 mg/dL (1.6-2.3)
[2016-12-10 08:36] LABS: POTASSIUM 3.5 mmol/L (3.6-5.2)
--- NOTE | 2016-12-10 09:19 | RAD ---
Chest x-ray single frontal view History: Pleural effusions. Comparison: 12/06/2016 Findings: Persistent moderate right and small left pleural effusion. Consolidative changes in the mid to lower lung zones bilaterally. Diffuse increased interstitial lung markings with bilateral hilar prominence. Cardiomegaly. Lines and tubes stable position. Impression: No significant interval change.
[2016-12-10 09:24] LABS: TOTAL CELLS COUNTED 100
[2016-12-10 09:25] LABS: NEUTROPHIL 82 % (50-75)
[2016-12-10 09:26] LABS: LARGE PLATELETS PRESENT
[2016-12-10] MEDS ORDERED: Potassium Chloride 20 mEq ER Tab PO ONE (10:00)
[2016-12-10] MEDS ORDERED: Midazolam 2 MG/2 ML VIAL ONE (10:20)
--- NOTE | 2016-12-10 11:02 | CP.PCM.PN ---
<Ni Halla - Last Filed: 12/10/16 11:52> Subjective - Date & Time of Evaluation Date of Evaluation: 12/10/16 Time of Evaluation: 07:00 - Subjective Subjective: Medicine note for Dr. Cai Patient seen and examined at bedside. Patient reports he feels the same. Okay with smaller meals. Continues to have diarrhea. No new complaints today. Denied any fever, chills, SOB, cough, abdominal pain, n/v, or urinary symptoms. Objective - Vital Signs/Intake and Output Vital Signs (last 24 hours): Temp Pulse Resp BP Pulse Ox 985 F H 83 20 92/65 L 96 12/10/16 08:51 12/10/16 08:51 12/10/16 08:51 12/10/16 08:51 12/10/16 08:51 Intake and Output: 12/10/16 12/10/16 06:59 18:59 Intake Total 550 Output Total 950 Balance -400 - Medications Medications: Current Medications Calcium/Vitamin D (Oyster Shell Calcium/Vitamin D 500 Mg-200 Iu) 1 tab PO DAILY [facility] Last Admin: 12/09/16 09:37 Dose: 1 tab Enoxaparin Sodium (Lovenox) 90 mg SC Q12 [facility] Last Admin: 12/09/16 21:15 Dose: 90 mg Gabapentin (Neurontin) 100 mg PO TID [facility] Last Admin: 12/09/16 17:25 Dose: 100 mg Hydroxyzine HCl (Atarax) 25 mg PO Q6 PRN PRN Reason: Anxiety Imipenem/Cilastatin Sodium 500 (mg/ Sodium Chloride) 100 mls @ 100 mls/hr IVPB Q6H [facility] Last Admin: 12/10/16 05:21 Dose: 100 mls/hr Ampicillin 2 gm/ Sodium (Chloride) 100 mls @ 50 mls/hr IVPB Q6H [facility] Last Admin: 12/10/16 06:44 Dose: 50 mls/hr Insulin Aspart (Novolog) 0 unit SC ACHS [facility] PRN Reason: Protocol Last Admin: 12/10/16 07:38 Dose: Not Given Insulin Detemir (Levemir) 15 unit SC DAILY [facility] Last Admin: 12/05/16 12:13 Dose: 15 unit Loperamide HCl (Imodium) 2 mg PO QID PRN PRN Reason: Diarrhea Last Admin: 12/08/16 11:48 Dose: 2 mg Midodrine (Proamatine) 2.5 mg PO TID [facility] Last Admin: 12/09/16 17:25 Dose: 2.5 mg Ondansetron HCl (Zofran Inj) 4 mg IVP Q6H PRN PRN Reason: Nausea/Vomiting Last Admin: 11/28/16 12:06 Dose: 4 mg Pantoprazole Sodium (Protonix Ec Tab) 40 mg PO DAILY [facility] Last Admin: 12/09/16 09:36 Dose: 40 mg Saccharomyces Boulardii (Florastor) 250 mg PO BID [facility] Last Admin: 12/09/16 17:25 Dose: 250 mg Sertraline HCl (Zoloft) 50 mg PO DAILY [facility] Last Admin: 12/09/16 09:36 Dose: 50 mg Zolpidem Tartrate (Ambien) 5 mg PO HS PRN PRN Reason: Insomnia Last Admin: 12/03/16 21:31 Dose: 5 mg - Labs Labs: 12/10/16 07:59 12/10/16 07:59 PT 15.0 SECONDS (9.7-12.2) H 12/03/16 07:08 INR 1.3 12/03/16 07:08 APTT 37 SECONDS (21-34) H 12/03/16 07:08 - Constitutional Appears: No Acute Distress, Chronically Ill, Other (ANARSARCA) - Head Exam Head Exam: NORMAL INSPECTION, NORMOCEPHALIC - Eye Exam Eye Exam: EOMI, Normal appearance, PERRL Pupil Exam: NORMAL ACCOMODATION - ENT Exam ENT Exam: Mucous Membranes Moist - Respiratory Exam Respiratory Exam: Clear to Ausculation Bilateral, NORMAL BREATHING PATTERN. absent: Decreased Breath Sounds, Rhonchi, Wheezes - Cardiovascular Exam Cardiovascular Exam: REGULAR RHYTHM, RRR, +S1, +S2 - GI/Abdominal Exam GI & Abdominal Exam: Soft, Normal Bowel Sounds. absent: Distended, Tenderness - Extremities Exam Extremities Exam: Normal Inspection, Pedal Edema. absent: Tenderness Additional comments: right arm swelling - Neurological Exam Neurological Exam: Alert, Awake, Oriented x3 - Psychiatric Exam Psychiatric exam: Depressed, Normal Affect - Skin Skin Exam: Dry, Intact, Normal Color, Warm Assessment and Plan - Assessment and Plan (Free Text) Plan: Bacteremia Assessment & Plan: Continues to be tachycardic, normotensive. Afebrile since 12/06/16 Blood culture + ESBL Urine Culture + VRE CT abd/pelvis 12/07 showed enlargement of pelvic abscess, will consult IR for possible draining of abscess. - On Primaxin 400mg IVPB Q6 hours (started 12/06) - Start Ampicillin 2grams IVPB Q6 hours (started 12/08) - Was given 2 doses of Gentamicin on 12/07 and 12/06 12/10: IR consulted for pelvic abscess drainage TODAY. Mass has increased from 8.4 x 6.9 x x 6.7 (11/16) to 12 x 15 x 8.5 (12/07) Afebrile, no leukocytosis, bandemia at 4 today. Repeated CXR which is unchanged from previous on 12/06, bilateral pleural effusions R>L are stable. F/U urine and blood cultures. 12/06: Tachycardia, hypotensive, with bandemia at 27. Pt was jesus cultured. DC Rocephin. Was given a stat dose of Gentamycin and restarted on Primaxin. Possible source PICC line or RIJ Portacath. F/U cultures, lactate level Continued hypotension, started on Midodrin 2.5mg PO TID Continue on Ceftriaxone 2 gm IV Q24H for 14 days starting 11/29/16. Leukocytosis resolved. 11/30/17: As per ID, Repeat blood culture was negative, Primaxin and Flagyl was discontinued (11/29/16). Ceftriaxone 2 gm IV Q24H for 14 days starting 11/29/16 11/29/16: E. coli in blood culture on 11/15/16. Repeat blood culture on 11/23/16 was finalized as negative. I will speak with ID Dr. Burns concerning how much longer we need to continue the Primaxin and Flagyl 11/27: wbc trending down. afebrile. will continue primaxin and flagyl and monitor bands and wbc. Blood cultures negative after 3 days. 11/26: Patient in ICU for monitoring post OR, Bands 12 today, will monitor. 11/25: Blood cultures are negative after [address] Burns, con't tx for minimum of 14 days; Primaxin and Flagyl both started on 11/17. 11/19: HIV screen negative, Hep panel negative. Bands 26 today. 11/18: HIV 1&2 antibodies, Hep panel were ordered today. ID has been consulted, Dr Burns, we will follow his recommendations. 11/17: Changed to IV Primaxin 500mg IV Q6 Follow cultures. Currently blood pressure and HR stable. Nonfebrile. Continue with the IVF, monitor west outputs Status: Acute Pelvic Abscess Assessment & Plan: 12/10: IR consulted for pelvic abscess drainage TODAY. Mass has increased from 8.4 x 6.9 x x 6.7 (11/16) to 12 x 15 x 8.5 (12/07). CRYS drain in place. Status: Acute VRE + Urine Assessment & Plan: Hemoglobin is stable today 8.7 Urine culture from west 12/06 shows UTI +VRE Dr. Burns ID informed Start Ampicillin 2 grams IVPB Q6 hours (started 12/08), On Primaxin 400mg IVPB Q6 hours (started 12/06) Contact precautions CHANGE OF WEST 12/10/16 Status: Acute Anemia of chronic disease Assessment & Plan: Hemoglobin is stable today 8.7 S/P transfusion total 2 units PRBCs 12/06 [employer] was called on patient 12/04/16 due hypotension. Lasix was discontinued. He was given a fluid bolus, albumin and continued with the 1 unit of PRBCs. Patient was given albumin again today. And will be transfused another unit of PRBCs due to hemoglobin of 7.8. H/H was 7.7/27.4 - Consent retrieved- patient will be transfused 1 unit of PRBCs 11/26: After discussing with Heme/Onc Dr Garcia, since Ferritin is normal ferrlecit will not provide much benefit, will discontinue 11/25: Will start Ferrlecit 125mg iv daily after surgical procedure 11/25: Hgb stable at 8.6. Status: Acute Pleural Effusions Repeated CXR 12/10/16 which is unchanged from previous on 12/06, bilateral pleural effusions R>L are stable. Repeat CXR (12/06) shows: Decreased bilateral pleural effusion. Probable linear atelectasis at left base. 12/07 CXR 12/02 compared to 11/15 --> B/L pleural effusions R>L. Was placed on lasix 20mg IVP Q12. Pulmonology consulted, Dr. Mccormick - patient is for thoracentesis. IR reported not enough fluid for thoracentesis. 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 12/06 C diff negative - Immodium added Stool culture negative for salmonella, shigella, campylobacter Stool leukocytes negative Ova and parasites not seen S/P RIJ Portacath insertion (12/03), s/p exploratory laparotomy (11/26) POD#10, w/ findings of unresectable rectosigmoid mass. 12/02/16 POD #6; Surgery will remove abdominal incision jody on POD #10. Surgery reconsulted for portacath placement. NPO past midnight tonight for OR tomorrow morning. 11/30/16: POD # 4: As per conversation with Dr. Lake Harris on 11/29/16, patient has decided to be DNR/DNI 11/29/16: POD #3. Patient is still undecided concerning further management. If he decides to proceed then he will need a Chemo Port placed. He has signed DNR/ DNI. I discussed patient's decision concerning further treatment with Dr. Willow Garcia on the night of 11/28/1611/28: s/p exploratory laparotomy POD2, w/ findings of unresectable rectosigmoid mass. Patient stated today he does not want the chemoport, he said he wants time to think about it. Patient appears tired and he does not want to make sudden decisions. No morning labs, blood draw was difficult this morning due to poor vein access. 11/27: s/p exploratory laparotomy POD1, w/ findings of unresectable rectosigmoid mass. Per surgery note, patient will need a portacath placement, time and date to be determined. Will stop heparin drip (tx for RUE deep vein thrombosis) 4 hours prior to portacath placement procedure. 11/26: Per surgical asst, the surgery today to resect patient's sigmoid mass was halted after it was determined the mass was too large/firm for removal. The patient will be treated with a neoadjuvant with hopes of shrinking the size of the tumor with possible surgery for removal at a later date. Patient was sent to ICU post OR for monitoring. 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 Due to lovenox longer half life, therapeutic lovenox was discontinued and heparin was started. Heparin 8000u iv bolus was given and heparin drip was started at 18u/kg/hr. This drip will be stopped at exactly 5am, 4 hours before surgery. 11/21: Pt s/p cystoscopy today. Patient found to have invasion to dome of urinary bladder. Surgery to plan for surgery some time next week 11/21: Per GI, Abdominal U/S obtained to rule out SV thrombosis given presence of gastroesopahgeal varices seen on endoscopic examination -> Abdominal U/S: 1. Hepatocellular disease without focal hepatic mass. 2. Patent portal venous system including splenic vein. 3. Cholelithiasis. No sonographic evidence of acute cholecystitis. 4. Cystic mass in the head of the pancreas. Remainder the pancreas is not visualized. 11/21: PICC placed today by IR DR Armando. 11/20: s/p upper EUS: "LA grade C erosive esophagitis. 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 75mm x 65mm psedocyst seen in pancreatic body, fine needle aspiration for fluid performed. Varices were visualized endosonographically in fundus of stomach". Will f/u cystology and CEA levels. 11/20: s/p venous duplex of upper extremities: "right: acute thrombosis of right subclavian, axillary and brachial veins with severe reduction of venous return. left: acute thrombosis of left cephatlic vein with severe reduction of venous return". Therapeutic lovenox started -> 90mg q12 sc. 11/20: s/p venous duplex of lower extremeties: negative 11/19: GI to perform EUS tomorrow. Advanced diet to liquid - will advance as tolerated. B/l upper and lower extremity duplex scans were ordered today. 11/18: Patient is s/p EGD/Colonoscopy. A 10cm partially obstructing sigmoid mass was seen and biopsied. Multiple polyps were seen and resected. Heme/Onc, Dr Garcia has been consulted, we will follow up with his recommendations. CT chest abdomen and pelvis findings as noted: suspected sigmoid and proximal rectum mass lesion without evidence of high grade bowel obstruction; suspected abscess formation; cystic mass lesion noted at pancreas with surrounding fat stranding of the pancreatic tail; large gallstones without evidence of acute cholecystitis GI consult (Dr. Srivastava)---> Help appreciated General Surgery Consult (Dr. Amin)----> Help appreciated Urology Consult (Dr. Jon)----> Help appreciated Status: Acute Acute deep vein thrombosis (DVT) of right upper extremity Assessment & Plan: Continue therapeutic Lovenox at 90 mg SC Q12H 11/29: Heparin Drip was discontinued on 11/28/16 as PTT could not be measured secondary to inability to draw blood from edematous arms and could not draw blood from left arm PICC for the PTT level due to the Heprin Drip being infused through the PICC. Therefore patient was restarted on therapeutic Lovenox at 90 mg SC Q12H 11/27: Heparin drip restarted at 18u/kg/hr. Heparin bolus 8,000u given prior to start of drip. 11/26: Per surgery, plan is to restart anticoagulant tomorrow morning Status: Acute Uncontrolled diabetes mellitus Assessment & Plan: Levemir 15 units SC HS---> Resumed today Recent HgbA1C: 11.5 (11/20/16) Accuchecks Aspart ISS - low Status: Chronic Esophageal abrasion Assessment & Plan: 11/18: Per endoscopy report * Ulcerated mucosa in the lower third of the esophagus was seen and biopsied. * Patient is on Protonix 40 mg PO BID. Status: Acute Pancreatic lesion Assessment & Plan: GI outpatient follow-up 11/26: Pancreatic cyst FNA negative for malignant cells per cytology report. 11/25: Per labor and delivery nurse, EUS performed on 11/20 sampled pancreatic cyst fluid with diagnostic studies ordered for ptf amylase and ptfCEA only 11/20: Upper EUS performed today: "75mm x 65mm psedocyst seen in pancreatic body , fine needle aspiration for fluid performed 11/18: CT abd/pelvis shows cystic mass lesion at pancreas with fat stranding of pacreatic tail. Lipase level and lipid panel was ordered today. 11/17: CA 19-9 wnl Status: Acute Cholelithiasis Assessment & Plan: GI outpatient follow-up 11/18: CT abd/pelvis shows large gallstones without evidence of acute cholecystitis. Denies abd pain Status: Acute Abnormal cardiovascular stress test Assessment & Plan: Cardiology outpatient follow-up 11/25: Nuclear Stress Test: Defect in mid-anteroseptal wall, defect in basal inferoseptal wall, fixed apical defect old [place], small defect inferior wall 11/25: ECHO: left ventricle systolic function is normal. EF is 50-55%. Status: Acute Major Depressive Disorder Assessment & Plan: Dr. Loredo consulted, help appreciated Zoloft 50mg PO daily Psychoeducation Status: Acute Prophylactic measure Assessment & Plan: Protonix 40 mg PO BID Lovenox 90mg IV q12H Florastor PO BID Ambien 5 mg PO HS Glucerna Shake 3 times a day help increase his protein level Physical Therapy started on 11/29/16 Status: Acute Disposition: Patient will be discharged home once medically stable and instructed to follow up with the [facility] for a referral for Dr. Garcia to have outpatient chemotherapy. DW Dr. Cai, Rafael IVERSON, PGY-1 <Abdiel Cai H - Last Filed: 12/10/16 12:58> Objective - Vital Signs/Intake and Output Vital Signs (last 24 hours): Temp Pulse Resp BP Pulse Ox 985 F H 83 20 92/65 L 96 12/10/16 08:51 12/10/16 08:51 12/10/16 08:51 12/10/16 08:51 12/10/16 08:51 Intake and Output: 12/10/16 12/10/16 06:59 18:59 Intake Total 550 Output Total 950 Balance -400 - Medications Medications: Current Medications Calcium/Vitamin D (Oyster Shell Calcium/Vitamin D 500 Mg-200 Iu) 1 tab PO DAILY [facility] Last Admin: 12/10/16 11:55 Dose: 1 tab Enoxaparin Sodium (Lovenox) 90 mg SC Q12 [facility] Last Admin: 12/10/16 11:31 Dose: 90 mg Gabapentin (Neurontin) 100 mg PO TID [facility] Last Admin: 12/10/16 11:31 Dose: 100 mg Hydroxyzine HCl (Atarax) 25 mg PO Q6 PRN PRN Reason: Anxiety Imipenem/Cilastatin Sodium 500 (mg/ Sodium Chloride) 100 mls @ 100 mls/hr IVPB Q6H [facility] Last Admin: 12/10/16 11:30 Dose: 100 mls/hr Ampicillin 2 gm/ Sodium (Chloride) 100 mls @ 50 mls/hr IVPB Q6H [facility] Last Admin: 12/10/16 12:42 Dose: 50 mls/hr Insulin Aspart (Novolog) 0 unit SC ACHS [facility] PRN Reason: Protocol Last Admin: 12/10/16 12:34 Dose: 2 unit Insulin Detemir (Levemir) 15 unit SC DAILY [facility] Last Admin: 12/10/16 11:30 Dose: 15 unit Loperamide HCl (Imodium) 2 mg PO QID PRN PRN Reason: Diarrhea Last Admin: 12/10/16 11:31 Dose: 2 mg Midodrine (Proamatine) 2.5 mg PO TID [facility] Last Admin: 12/10/16 11:32 Dose: 2.5 mg Ondansetron HCl (Zofran Inj) 4 mg IVP Q6H PRN PRN Reason: Nausea/Vomiting Last Admin: 11/28/16 12:06 Dose: 4 mg Pantoprazole Sodium (Protonix Ec Tab) 40 mg PO DAILY [facility] Last Admin: 12/10/16 11:31 Dose: 40 mg Saccharomyces Boulardii (Florastor) 250 mg PO BID [facility] Last Admin: 12/10/16 11:31 Dose: 250 mg Sertraline HCl (Zoloft) 50 mg PO DAILY [facility] Last Admin: 12/10/16 11:30 Dose: 50 mg Zolpidem Tartrate (Ambien) 5 mg PO HS PRN PRN Reason: Insomnia Last Admin: 12/03/16 21:31 Dose: 5 mg - Labs Labs: 12/10/16 07:59 12/10/16 07:59 PT 15.0 SECONDS (9.7-12.2) H 12/03/16 07:08 INR 1.3 12/03/16 07:08 APTT 37 SECONDS (21-34) H 12/03/16 07:08 Attending/Attestation - Attestation I have personally seen and examined this patient.: Yes I have fully participated in the care of the patient.: Yes I have reviewed all pertinent clinical information, including history, physical exam and plan: Yes Notes (Text): 12/10/16 12:57 Medical attending: Patient was seen and examined by me, agrees the above note by expert medical writer. We saw the patient after he came back from drainage of the pelvic abscess that he had. He was not under any acute distress when we saw him. The pain was controlled. He now has a drain in place over that area was the color of the fluid is very light brown fluid material. As mentioned before the patient currently has a recent ESBL positive blood culture as well as VRE in the urine. A lot of this infection complication is likely related to the rectosigmoid area mass that he has that has been complicated with involvement of the bladder as well. Thank you very much, Abdiel Cai
--- NOTE | 2016-12-10 11:11 | PCM.SURG1 ---
Surgeon's Initial Post Op Note - Surgeon's Notes Surgeon: aYya Armando MD [employer] Feeder: None Type of Anesthesia: IV Sedation Pre-Operative Diagnosis: Abdominal abscess Operative Findings: Large pelvic abscess Post-Operative Diagnosis: Abdominal abscess Operation Performed: CT guided pelvic abscess drainage with placement of a 10 fr drainage catheter. Specimen/Specimens Removed: 20 cc of purulent drainage. Estimated Blood Loss: EBL {In ML}: 0 Blood Products Given: N/A Drains Used: No Drains Post-Op Condition: Fair Date of Surgery/Procedure: 12/10/16 Time of Surgery/Procedure: 11:05
[2016-12-10] MEDS: Insulin Detemir 100 units/ml Vial (Levemir) SC SCH (11:30)
[2016-12-10] MEDS: Pantoprazole 40 mg EC Tab PO SCH (11:31)
[2016-12-10] MEDS: Saccharomyces Boulardi 250 mg Cap PO SCH ×2 (11:31→17:09)
[2016-12-10] MEDS: Enoxaparin 100 mg Syringe SC SCH ×2 (11:31→21:22)
[2016-12-10] MEDS: Calcium-Vit D 500 mg-200 Units Tab UD PO SCH (11:55)
--- NOTE | 2016-12-10 17:51 | CP.PCM.PN ---
Subjective - Date & Time of Evaluation Date of Evaluation: 12/10/16 Time of Evaluation: 10:00 - Subjective Subjective: PGY3 on heme/onc Dr. Garcia service: Pt seen and examined at bedside this morning. No new complaints at the moment. Will have abscess drainage today. Objective - Vital Signs/Intake and Output Vital Signs (last 24 hours): Temp Pulse Resp BP Pulse Ox 97.5 F L 90 20 111/72 98 12/10/16 16:05 12/10/16 16:05 12/10/16 16:05 12/10/16 16:05 12/10/16 16:05 Intake and Output: 12/10/16 12/10/16 06:59 18:59 Intake Total 550 Output Total 950 380 Balance -400 -380 - Medications Medications: Current Medications Calcium/Vitamin D (Oyster Shell Calcium/Vitamin D 500 Mg-200 Iu) 1 tab PO DAILY [facility] Last Admin: 12/10/16 11:55 Dose: 1 tab Enoxaparin Sodium (Lovenox) 90 mg SC Q12 [facility] Last Admin: 12/10/16 11:31 Dose: 90 mg Gabapentin (Neurontin) 100 mg PO TID [facility] Last Admin: 12/10/16 17:09 Dose: 100 mg Hydroxyzine HCl (Atarax) 25 mg PO Q6 PRN PRN Reason: Anxiety Imipenem/Cilastatin Sodium 500 (mg/ Sodium Chloride) 100 mls @ 100 mls/hr IVPB Q6H [facility] Last Admin: 12/10/16 17:08 Dose: 100 mls/hr Ampicillin 2 gm/ Sodium (Chloride) 100 mls @ 50 mls/hr IVPB Q6H [facility] Last Admin: 12/10/16 12:42 Dose: 50 mls/hr Insulin Aspart (Novolog) 0 unit SC ACHS [facility] PRN Reason: Protocol Last Admin: 12/10/16 16:31 Dose: Not Given Insulin Detemir (Levemir) 15 unit SC DAILY [facility] Last Admin: 12/10/16 11:30 Dose: 15 unit Loperamide HCl (Imodium) 2 mg PO QID PRN PRN Reason: Diarrhea Last Admin: 12/10/16 11:31 Dose: 2 mg Midodrine (Proamatine) 2.5 mg PO TID [facility] Last Admin: 12/10/16 17:09 Dose: 2.5 mg Ondansetron HCl (Zofran Inj) 4 mg IVP Q6H PRN PRN Reason: Nausea/Vomiting Last Admin: 11/28/16 12:06 Dose: 4 mg Pantoprazole Sodium (Protonix Ec Tab) 40 mg PO DAILY [facility] Last Admin: 12/10/16 11:31 Dose: 40 mg Saccharomyces Boulardii (Florastor) 250 mg PO BID [facility] Last Admin: 12/10/16 17:09 Dose: 250 mg Sertraline HCl (Zoloft) 50 mg PO DAILY [facility] Last Admin: 12/10/16 11:30 Dose: 50 mg Zolpidem Tartrate (Ambien) 5 mg PO HS PRN PRN Reason: Insomnia Last Admin: 12/03/16 21:31 Dose: 5 mg - Labs Labs: 12/10/16 07:59 12/10/16 07:59 PT 15.0 SECONDS (9.7-12.2) H 12/03/16 07:08 INR 1.3 12/03/16 07:08 APTT 37 SECONDS (21-34) H 12/03/16 07:08 - Constitutional Appears: Non-toxic, No Acute Distress - Head Exam Head Exam: NORMOCEPHALIC - Respiratory Exam Respiratory Exam: Clear to Ausculation Bilateral, NORMAL BREATHING PATTERN. absent: Wheezes - Cardiovascular Exam Cardiovascular Exam: REGULAR RHYTHM, +S1, +S2. absent: Gallop, Rubs - GI/Abdominal Exam GI & Abdominal Exam: Soft, Normal Bowel Sounds Additional comments: incision c/d/i - Neurological Exam Neurological Exam: Alert, Awake, Oriented x3 - Psychiatric Exam Psychiatric exam: Normal Mood - Skin Skin Exam: Intact Assessment and Plan - Assessment and Plan (Free Text) Assessment: (1) Colon cancer Assessment & Plan: with bladder extension for outpatient neoadjuvant chemotherapy Status: Acute (2) DVT (deep venous thrombosis) Assessment & Plan: Lovenox 90mg SC q12H. Status: Acute (3) Anemia Assessment & Plan: chronic disease s/p PRBC transfusion Continue monitoring Status: Acute (4) Pancreatic lesion Assessment & Plan: biopsy negative for malignancy Status: Acute (5) ESBL in blood Assessment & Plan: Management as per primary team. Status: Acute (6) VRE in urine Assessment & Plan: Management as per primary team. Status: Acute
[2016-12-10] MEDS ORDERED: Dextrose 50% SYRINGE Inj (50 ml) IV PRN (21:38)
[2016-12-10] MEDS ORDERED: Dextrose 50% SYRINGE Inj (50 ml) ONE (21:39)
--- NOTE | 2016-12-11 05:53 | CP.PCM.PN ---
<RafaelSimin - Last Filed: 12/11/16 11:21> Subjective - Date & Time of Evaluation Date of Evaluation: 12/11/16 Time of Evaluation: 07:00 - Subjective Subjective: Medicine note for Dr. Cai Patient seen and examined at bedside. Patient reports he feels the same. Continues on nasal cannula, breathing is okay. abdominal CRYS drain still in place with low output. Continues to have diarrhea. No new complaints today. Denied any fever, chills, SOB, cough, abdominal pain, n/v, or urinary symptoms. Objective - Vital Signs/Intake and Output Vital Signs (last 24 hours): Temp Pulse Resp BP Pulse Ox 97.4 F L 88 20 95/60 L 98 12/10/16 23:25 12/11/16 04:00 12/10/16 23:25 12/10/16 23:25 12/10/16 23:25 Intake and Output: 12/10/16 12/11/16 18:59 06:59 Output Total 380 Balance -380 - Medications Medications: Current Medications Calcium/Vitamin D (Oyster Shell Calcium/Vitamin D 500 Mg-200 Iu) 1 tab PO DAILY [facility] Last Admin: 12/10/16 11:55 Dose: 1 tab Dextrose (Dextrose 50% Inj) 0 ml IV STAT PRN; Protocol PRN Reason: Hyglycemia Protocol Enoxaparin Sodium (Lovenox) 90 mg SC Q12 [facility] Last Admin: 12/10/16 21:22 Dose: 90 mg Gabapentin (Neurontin) 100 mg PO TID [facility] Last Admin: 12/10/16 17:09 Dose: 100 mg Hydroxyzine HCl (Atarax) 25 mg PO Q6 PRN PRN Reason: Anxiety Imipenem/Cilastatin Sodium 500 (mg/ Sodium Chloride) 100 mls @ 100 mls/hr IVPB Q6H [facility] Last Admin: 12/11/16 05:17 Dose: 100 mls/hr Ampicillin 2 gm/ Sodium (Chloride) 100 mls @ 50 mls/hr IVPB Q6H [facility] Last Admin: 12/11/16 01:25 Dose: 50 mls/hr Insulin Aspart (Novolog) 0 unit SC ACHS [facility] PRN Reason: Protocol Last Admin: 12/10/16 21:22 Dose: Not Given Insulin Detemir (Levemir) 15 unit SC DAILY [facility] Last Admin: 12/10/16 11:30 Dose: 15 unit Loperamide HCl (Imodium) 2 mg PO QID PRN PRN Reason: Diarrhea Last Admin: 12/10/16 11:31 Dose: 2 mg Midodrine (Proamatine) 2.5 mg PO TID [facility] Last Admin: 12/10/16 17:09 Dose: 2.5 mg Ondansetron HCl (Zofran Inj) 4 mg IVP Q6H PRN PRN Reason: Nausea/Vomiting Last Admin: 11/28/16 12:06 Dose: 4 mg Pantoprazole Sodium (Protonix Ec Tab) 40 mg PO DAILY [facility] Last Admin: 12/10/16 11:31 Dose: 40 mg Saccharomyces Boulardii (Florastor) 250 mg PO BID [facility] Last Admin: 12/10/16 17:09 Dose: 250 mg Sertraline HCl (Zoloft) 50 mg PO DAILY [facility] Last Admin: 12/10/16 11:30 Dose: 50 mg Zolpidem Tartrate (Ambien) 5 mg PO HS PRN PRN Reason: Insomnia Last Admin: 12/03/16 21:31 Dose: 5 mg - Labs Labs: 12/10/16 07:59 12/10/16 07:59 PT 15.0 SECONDS (9.7-12.2) H 12/03/16 07:08 INR 1.3 12/03/16 07:08 APTT 37 SECONDS (21-34) H 12/03/16 07:08 - Constitutional Appears: No Acute Distress, Chronically Ill - Head Exam Head Exam: NORMAL INSPECTION, NORMOCEPHALIC - Eye Exam Eye Exam: EOMI, Normal appearance, PERRL - ENT Exam ENT Exam: Mucous Membranes Moist, Normal Exam - Neck Exam Neck Exam: Normal Inspection - Respiratory Exam Respiratory Exam: Decreased Breath Sounds, NORMAL BREATHING PATTERN. absent: Wheezes - Cardiovascular Exam Cardiovascular Exam: REGULAR RHYTHM, RRR, +S1, +S2 - GI/Abdominal Exam GI & Abdominal Exam: Soft, Normal Bowel Sounds. absent: Distended, Tenderness - Extremities Exam Extremities Exam: Normal Inspection, Pedal Edema. absent: Tenderness Additional comments: R UE - DVT - Neurological Exam Neurological Exam: Alert, Awake, Oriented x3 - Psychiatric Exam Psychiatric exam: Normal Affect, Normal Mood - Skin Skin Exam: Dry, Intact, Normal Color, Warm Assessment and Plan - Assessment and Plan (Free Text) Plan: Bacteremia Assessment & Plan: Continues to be tachycardic, normotensive. Afebrile since 12/06/16 Blood culture + ESBL Urine Culture + VRE CT abd/pelvis 12/07 showed enlargement of pelvic abscess, will consult IR for possible draining of abscess. - On Primaxin 400mg IVPB Q6 hours (started 12/06) - Start Ampicillin 2grams IVPB Q6 hours (started 12/08) - Was given 2 doses of Gentamicin on 12/07 and 12/06 12/10: IR consulted for pelvic abscess drainage. Mass has increased from 8.4 x 6.9 x x 6.7 (11/16) to 12 x 15 x 8.5 (12/07) Afebrile, no leukocytosis, bandemia at 4 today. Repeated CXR which is unchanged from previous on 12/06, bilateral pleural effusions R>L are stable. F/U 12/10/16 urine and blood cultures - prelim NO GROWTH 12/06: Tachycardia, hypotensive, with bandemia at 27. Pt was jesus cultured. DC Rocephin. Was given a stat dose of Gentamycin and restarted on Primaxin. Possible source PICC line or RIJ Portacath. Continue on Ceftriaxone 2 gm IV Q24H for 14 days starting 11/29/16. Leukocytosis resolved. 11/30/17: As per ID, Repeat blood culture was negative, Primaxin and Flagyl was discontinued (11/29/16). Ceftriaxone 2 gm IV Q24H for 14 days starting 11/29/16 11/29/16: E. coli in blood culture on 11/15/16. Repeat blood culture on 11/23/16 was finalized as negative. I will speak with ID Dr. Burns concerning how much longer we need to continue the Primaxin and Flagyl 11/27: wbc trending down. afebrile. will continue primaxin and flagyl and monitor bands and wbc. Blood cultures negative after 3 days. 11/26: Patient in ICU for monitoring post OR, Bands 12 today, will monitor. 11/25: Blood cultures are negative after [address] Burns, con't tx for minimum of 14 days; Primaxin and Flagyl both started on 11/17. 11/19: HIV screen negative, Hep panel negative. Bands 26 today. 11/18: HIV 1&2 antibodies, Hep panel were ordered today. ID has been consulted, Dr Burns, we will follow his recommendations. 11/17: Changed to IV Primaxin 500mg IV Q6 Follow cultures. Currently blood pressure and HR stable. Nonfebrile. Continue with the IVF, monitor west outputs Status: Acute Pelvic Abscess Assessment & Plan: 12/10: IR consulted for pelvic abscess drainage . Mass has increased from 8.4 x 6.9 x x 6.7 (11/16) to 12 x 15 x 8.5 (12/07). CRYS drain in place. Status: Acute VRE + Urine Assessment & Plan: Urine culture from west 12/06 shows UTI +VRE Dr. Burns ID informed Start Ampicillin 2 grams IVPB Q6 hours (started 12/08), On Primaxin 400mg IVPB Q6 hours (started 12/06) Contact precautions CHANGE OF WEST 12/10/16 Status: Acute Anemia of chronic disease Assessment & Plan: Hemoglobin is stable today 8.3. MONITOR may need to transfuse tomorrow morning. S/P transfusion total 2 units PRBCs 12/06 CLIENT SERVICES ACCOUNT MANAGER was called on patient 12/04/16 due hypotension. Lasix was discontinued. He was given a fluid bolus, albumin and continued with the 1 unit of PRBCs. Patient was given albumin again today. And will be transfused another unit of PRBCs due to hemoglobin of 7.8. H/H was 7.7/27.4 - Consent retrieved- patient will be transfused 1 unit of PRBCs 11/26: After discussing with Heme/Onc Dr Garcia, since Ferritin is normal ferrlecit will not provide much benefit, will discontinue 11/25: Will start Ferrlecit 125mg iv daily after surgical procedure 11/25: Hgb stable at 8.6. Status: Acute Pleural Effusions Assessment & Plan: Repeated CXR 12/10/16 which is unchanged from previous on 12/06, bilateral pleural effusions R>L are stable. Repeat CXR (12/06) shows: Decreased bilateral pleural effusion. Probable linear atelectasis at left base. 12/07 CXR 12/02 compared to 11/15 --> B/L pleural effusions R>L. Was placed on lasix 20mg IVP Q12. Pulmonology consulted, Dr. Mccormick - patient is for thoracentesis. IR reported not enough fluid for thoracentesis. 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 12/06 C diff negative - Immodium added Stool culture negative for salmonella, shigella, campylobacter Stool leukocytes negative Ova and parasites not seen S/P RIJ Portacath insertion (12/03), s/p exploratory laparotomy (11/26) POD#10, w/ findings of unresectable rectosigmoid mass. 12/02/16 POD #6; Surgery will remove abdominal incision jody on POD #10. Surgery reconsulted for portacath placement. NPO past midnight tonight for OR tomorrow morning. 11/30/16: POD # 4: As per conversation with Dr. Lake Harris on 11/29/16, patient has decided to be DNR/DNI 11/29/16: POD #3. Patient is still undecided concerning further management. If he decides to proceed then he will need a Chemo Port placed. He has signed DNR/ DNI. I discussed patient's decision concerning further treatment with Dr. Willow Garcia on the night of 11/28/1611/28: s/p exploratory laparotomy POD2, w/ findings of unresectable rectosigmoid mass. Patient stated today he does not want the chemoport, he said he wants time to think about it. Patient appears tired and he does not want to make sudden decisions. No morning labs, blood draw was difficult this morning due to poor vein access. 11/27: s/p exploratory laparotomy POD1, w/ findings of unresectable rectosigmoid mass. Per surgery note, patient will need a portacath placement, time and date to be determined. Will stop heparin drip (tx for RUE deep vein thrombosis) 4 hours prior to portacath placement procedure. 11/26: Per surgical services director, the surgery today to resect patient's sigmoid mass was halted after it was determined the mass was too large/firm for removal. The patient will be treated with a neoadjuvant with hopes of shrinking the size of the tumor with possible surgery for removal at a later date. Patient was sent to ICU post OR for monitoring. 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 Due to lovenox longer half life, therapeutic lovenox was discontinued and heparin was started. Heparin 8000u iv bolus was given and heparin drip was started at 18u/kg/hr. This drip will be stopped at exactly 5am, 4 hours before surgery. 11/21: Pt s/p cystoscopy today. Patient found to have invasion to dome of urinary bladder. Surgery to plan for surgery some time next week 11/21: Per GI, Abdominal U/S obtained to rule out SV thrombosis given presence of gastroesopahgeal varices seen on endoscopic examination -> Abdominal U/S: 1. Hepatocellular disease without focal hepatic mass. 2. Patent portal venous system including splenic vein. 3. Cholelithiasis. No sonographic evidence of acute cholecystitis. 4. Cystic mass in the head of the pancreas. Remainder the pancreas is not visualized. 11/21: PICC placed today by IR DR Armando. 11/20: s/p upper EUS: "LA grade C erosive esophagitis. 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 75mm x 65mm psedocyst seen in pancreatic body, fine needle aspiration for fluid performed. Varices were visualized endosonographically in fundus of stomach". Will f/u cystology and CEA levels. 11/20: s/p venous duplex of upper extremities: "right: acute thrombosis of right subclavian, axillary and brachial veins with severe reduction of venous return. left: acute thrombosis of left cephatlic vein with severe reduction of venous return". Therapeutic lovenox started -> 90mg q12 sc. 11/20: s/p venous duplex of lower extremeties: negative 11/19: GI to perform EUS tomorrow. Advanced diet to liquid - will advance as tolerated. B/l upper and lower extremity duplex scans were ordered today. 11/18: Patient is s/p EGD/Colonoscopy. A 10cm partially obstructing sigmoid mass was seen and biopsied. Multiple polyps were seen and resected. Heme/Onc, Dr Garcia has been consulted, we will follow up with his recommendations. CT chest abdomen and pelvis findings as noted: suspected sigmoid and proximal rectum mass lesion without evidence of high grade bowel obstruction; suspected abscess formation; cystic mass lesion noted at pancreas with surrounding fat stranding of the pancreatic tail; large gallstones without evidence of acute cholecystitis GI consult (Dr. Srivastava)---> Help appreciated General Surgery Consult (Dr. Amin)----> Help appreciated Urology Consult (Dr. Jon)----> Help appreciated Status: Acute Acute deep vein thrombosis (DVT) of right upper extremity Assessment & Plan: Continue therapeutic Lovenox at 90 mg SC Q12H 11/29: Heparin Drip was discontinued on 11/28/16 as PTT could not be measured secondary to inability to draw blood from edematous arms and could not draw blood from left arm PICC for the PTT level due to the Heprin Drip being infused through the PICC. Therefore patient was restarted on therapeutic Lovenox at 90 mg SC Q12H 11/27: Heparin drip restarted at 18u/kg/hr. Heparin bolus 8,000u given prior to start of drip. 11/26: Per surgery, plan is to restart anticoagulant tomorrow morning Status: Acute Uncontrolled diabetes mellitus Assessment & Plan: Levemir 15 units SC HS---> Resumed today Recent HgbA1C: 11.5 (11/20/16) Accuchecks Aspart ISS - low Status: Chronic Esophageal abrasion Assessment & Plan: 11/18: Per endoscopy report * Ulcerated mucosa in the lower third of the esophagus was seen and biopsied. * Patient is on Protonix 40 mg PO BID. Status: Acute Pancreatic lesion Assessment & Plan: GI outpatient follow-up 11/26: Pancreatic cyst FNA negative for malignant cells per cytology report. 11/25: Per pathology laboratory aide, EUS performed on 11/20 sampled pancreatic cyst fluid with diagnostic studies ordered for ptf amylase and ptfCEA only 11/20: Upper EUS performed today: "75mm x 65mm psedocyst seen in pancreatic body , fine needle aspiration for fluid performed 11/18: CT abd/pelvis shows cystic mass lesion at pancreas with fat stranding of pacreatic tail. Lipase level and lipid panel was ordered today. 11/17: CA 19-9 wnl Status: Acute Cholelithiasis Assessment & Plan: GI outpatient follow-up 11/18: CT abd/pelvis shows large gallstones without evidence of acute cholecystitis. Denies abd pain Status: Acute Abnormal cardiovascular stress test Assessment & Plan: Cardiology outpatient follow-up 11/25: Nuclear Stress Test: Defect in mid-anteroseptal wall, defect in basal inferoseptal wall, fixed apical defect old SC, small defect inferior wall 11/25: ECHO: left ventricle systolic function is normal. EF is 50-55%. Status: Acute Major Depressive Disorder Assessment & Plan: Dr. Loredo consulted, help appreciated Zoloft 50mg PO daily Psychoeducation Status: Acute Prophylactic measure Assessment & Plan: Protonix 40 mg PO BID Lovenox 90mg IV q12H Florastor PO BID Ambien 5 mg PO HS Glucerna Shake 3 times a day help increase his protein level Physical Therapy started on 11/29/16 Status: Acute Disposition: Patient will be discharged home once medically stable and instructed to [facility] for a [facility] for Dr. Garcia to have outpatient chemotherapy. DW Rafael Espinoza DO, PGY-1 <Abdiel Cai H - Last Filed: 12/11/16 14:04> Objective - Vital Signs/Intake and Output Vital Signs (last 24 hours): Temp Pulse Resp BP Pulse Ox 98 F 94 H 20 100/63 96 12/11/16 07:45 12/11/16 13:43 12/11/16 07:45 12/11/16 07:45 12/11/16 13:43 Intake and Output: 12/11/16 12/11/16 06:59 18:59 Intake Total 640 Output Total 270 Balance 370 - Medications Medications: Current Medications Calcium/Vitamin D (Oyster Shell Calcium/Vitamin D 500 Mg-200 Iu) 1 tab PO DAILY [facility] Last Admin: 12/11/16 09:56 Dose: 1 tab Dextrose (Dextrose 50% Inj) 0 ml IV STAT PRN; Protocol PRN Reason: Hyglycemia Protocol Enoxaparin Sodium (Lovenox) 90 mg SC Q12 [facility] Last Admin: 12/11/16 09:54 Dose: 90 mg Gabapentin (Neurontin) 100 mg PO TID [facility] Last Admin: 12/11/16 13:14 Dose: 100 mg Hydroxyzine HCl (Atarax) 25 mg PO Q6 PRN PRN Reason: Anxiety Imipenem/Cilastatin Sodium 500 (mg/ Sodium Chloride) 100 mls @ 100 mls/hr IVPB Q6H [facility] Last Admin: 12/11/16 11:43 Dose: 100 mls/hr Ampicillin 2 gm/ Sodium (Chloride) 100 mls @ 50 mls/hr IVPB Q6H [facility] Last Admin: 12/11/16 13:09 Dose: 50 mls/hr Insulin Aspart (Novolog) 0 unit SC ACHS [facility] PRN Reason: Protocol Last Admin: 12/11/16 13:12 Dose: Not Given Insulin Detemir (Levemir) 8 unit SC DAILY [facility] Last Admin: 12/11/16 09:55 Dose: Not Given Loperamide HCl (Imodium) 2 mg PO QID PRN PRN Reason: Diarrhea Last Admin: 12/11/16 09:53 Dose: 2 mg Midodrine (Proamatine) 2.5 mg PO TID [facility] Last Admin: 12/11/16 13:14 Dose: 2.5 mg Ondansetron HCl (Zofran Inj) 4 mg IVP Q6H PRN PRN Reason: Nausea/Vomiting Last Admin: 11/28/16 12:06 Dose: 4 mg Pantoprazole Sodium (Protonix Ec Tab) 40 mg PO DAILY [facility] Last Admin: 12/11/16 09:53 Dose: 40 mg Saccharomyces Boulardii (Florastor) 250 mg PO BID [facility] Last Admin: 12/11/16 09:53 Dose: 250 mg Sertraline HCl (Zoloft) 50 mg PO DAILY [facility] Last Admin: 12/11/16 09:53 Dose: 50 mg Zolpidem Tartrate (Ambien) 5 mg PO HS PRN PRN Reason: Insomnia Last Admin: 12/03/16 21:31 Dose: 5 mg - Labs Labs: 12/11/16 07:04 12/11/16 07:04 PT 15.0 SECONDS (9.7-12.2) H 12/03/16 07:08 INR 1.3 12/03/16 07:08 APTT 37 SECONDS (21-34) H 12/03/16 07:08 Attending/Attestation - Attestation I have personally seen and examined this patient.: Yes I have fully participated in the care of the patient.: Yes I have reviewed all pertinent clinical information, including history, physical exam and plan: Yes Notes (Text): 12/11/16 14:00 Medical attending: Patient was seen and examined by me, agrees the above note by medical massage therapist. Today it appears that his drain content has decreased in volume. He did have as much output today as he did yesterday. Nevertheless will continue continue to follow the output from the drain. Jerrica also pending a repeat blood cultures as well. As mentioned before he is on IV into biotics at this time being treated for ESBL Escherichia coli found in the blood stream as well as vancomycin-resistant enterococci found in the urine. The hemoglobin is a also lower today. We will continue to monitor his blood counts, if they decrease to below 7.5 with have to consider giving him another blood transfusion. Overall prognosis appears to be poor at this time Thank you very much, Abdiel Cai
[2016-12-11 07:43] LABS: BASO % 0.2 % (0.0-2.0); EOS % 0.4 % (0.0-4.0); HEMATOCRIT 25.1 % (35.0-51.0); LYMPH # 0.8 K/uL (1.0-4.3); LYMPH % 9.7 % (20.0-40.0); MEAN CELL VOLUME 80.7 fL (80.0-94.0); MEAN CORPUSCULAR HEMOGLOBIN 26.6 pg (27.0-31.0); MEAN CORPUSCULAR HGB CONC 32.9 g/dL (33.0-37.0); MEAN PLATELET VOLUME 9.5 fL (7.2-11.7); MONO # 0.7 K/uL (0.0-0.8); MONO % 8.9 % (0.0-10.0); PLATELET COUNT 193 K/uL (130-400); RED CELL DISTRIBUTION WIDTH 23.6 % (11.5-14.5); WHITE BLOOD COUNT 7.7 K/uL (4.8-10.8)
[2016-12-11 07:51] LABS: CHLORIDE 99 mmol/L (98-107)
[2016-12-11 07:52] LABS: POTASSIUM 3.4 mmol/L (3.6-5.2); SODIUM 132 mmol/L (132-148)
[2016-12-11 07:54] LABS: ALB/GLOB RATIO 0.6 (1.0-2.1); ALKALINE PHOSPHATASE 258 U/L (38-126); ALT/SGPT 33 U/L (21-72); AST/SGOT 29 U/L (17-59); BILIRUBIN,TOTAL 0.7 mg/dL (0.2-1.3); BLOOD UREA NITROGEN 11 mg/dL (9-20); CARBON DIOXIDE 27 mmol/L (22-30); GFR AFRICAN-AMERICAN > 60; TOTAL PROTEIN 4.1 g/dL (6.3-8.3)
[2016-12-11 07:55] LABS: CALCIUM 6.3 mg/dl (8.6-10.4); GLUCOSE,RANDOM 91 mg/dL (75-110); MAGNESIUM 1.7 mg/dL (1.6-2.3); PHOSPHOROUS 3.5 mg/dL (2.5-4.5)
[2016-12-11 09:15] LABS: NEUTROPHIL 77 % (50-75); TOTAL CELLS COUNTED 100
[2016-12-11 09:16] LABS: GIANT PLATELETS PRESENT
[2016-12-11] MEDS: Pantoprazole 40 mg EC Tab PO SCH (09:53)
[2016-12-11] MEDS: Saccharomyces Boulardi 250 mg Cap PO SCH ×2 (09:53→17:51)
[2016-12-11] MEDS: (Novolog) Insulin Aspart, Recombinant 100 u/ml 10 ml vial SC SCH ×4 (09:54→22:12)
[2016-12-11] MEDS: Enoxaparin 100 mg Syringe SC SCH ×2 (09:54→22:26)
[2016-12-11] MEDS: Insulin Detemir 100 units/ml Vial (Levemir) SC SCH (09:55)
[2016-12-11] MEDS: Calcium-Vit D 500 mg-200 Units Tab UD PO SCH (09:56)
[2016-12-11] MEDS ORDERED: Potassium Chloride 20 mEq ER Tab PO ONE (10:00)
--- NOTE | 2016-12-11 12:35 | CP.PCM.PN ---
Subjective - Date & Time of Evaluation Date of Evaluation: 12/11/16 Time of Evaluation: 10:00 - Subjective Subjective: PGY3 on heme/onc Dr. Garcia service: Pt seen and examined at bedside. No complaints at the moment. Objective - Vital Signs/Intake and Output Vital Signs (last 24 hours): Temp Pulse Resp BP Pulse Ox 98 F 93 H 20 100/63 98 12/11/16 07:45 12/11/16 08:00 12/11/16 07:45 12/11/16 07:45 12/11/16 07:45 Intake and Output: 12/11/16 12/11/16 06:59 18:59 Intake Total 640 Output Total 270 Balance 370 - Medications Medications: Current Medications Calcium/Vitamin D (Oyster Shell Calcium/Vitamin D 500 Mg-200 Iu) 1 tab PO DAILY REPLACED BY [facility] Last Admin: 12/11/16 09:56 Dose: 1 tab Dextrose (Dextrose 50% Inj) 0 ml IV STAT PRN; Protocol PRN Reason: Hyglycemia Protocol Enoxaparin Sodium (Lovenox) 90 mg SC Q12 REPLACED BY [facility] Last Admin: 12/11/16 09:54 Dose: 90 mg Gabapentin (Neurontin) 100 mg PO TID REPLACED BY [facility] Last Admin: 12/11/16 09:53 Dose: 100 mg Hydroxyzine HCl (Atarax) 25 mg PO Q6 PRN PRN Reason: Anxiety Imipenem/Cilastatin Sodium 500 (mg/ Sodium Chloride) 100 mls @ 100 mls/hr IVPB Q6H REPLACED BY [facility] Last Admin: 12/11/16 11:43 Dose: 100 mls/hr Ampicillin 2 gm/ Sodium (Chloride) 100 mls @ 50 mls/hr IVPB Q6H REPLACED BY [facility] Last Admin: 12/11/16 06:35 Dose: 50 mls/hr Insulin Aspart (Novolog) 0 unit SC ACHS [facility] PRN Reason: Protocol Last Admin: 12/11/16 09:54 Dose: Not Given Insulin Detemir (Levemir) 8 unit SC DAILY REPLACED BY [facility] Last Admin: 12/11/16 09:55 Dose: Not Given Loperamide HCl (Imodium) 2 mg PO QID PRN PRN Reason: Diarrhea Last Admin: 12/11/16 09:53 Dose: 2 mg Midodrine (Proamatine) 2.5 mg PO TID REPLACED BY [facility] Last Admin: 12/11/16 09:54 Dose: 2.5 mg Ondansetron HCl (Zofran Inj) 4 mg IVP Q6H PRN PRN Reason: Nausea/Vomiting Last Admin: 11/28/16 12:06 Dose: 4 mg Pantoprazole Sodium (Protonix Ec Tab) 40 mg PO DAILY REPLACED BY [facility] Last Admin: 12/11/16 09:53 Dose: 40 mg Saccharomyces Boulardii (Florastor) 250 mg PO BID REPLACED BY [facility] Last Admin: 12/11/16 09:53 Dose: 250 mg Sertraline HCl (Zoloft) 50 mg PO DAILY REPLACED BY [facility] Last Admin: 12/11/16 09:53 Dose: 50 mg Zolpidem Tartrate (Ambien) 5 mg PO HS PRN PRN Reason: Insomnia Last Admin: 12/03/16 21:31 Dose: 5 mg - Labs Labs: 12/11/16 07:04 12/11/16 07:04 PT 15.0 SECONDS (9.7-12.2) H 12/03/16 07:08 INR 1.3 12/03/16 07:08 APTT 37 SECONDS (21-34) H 12/03/16 07:08 - Constitutional Appears: Non-toxic, No Acute Distress - Head Exam Head Exam: NORMOCEPHALIC - Eye Exam Eye Exam: Normal appearance - Respiratory Exam Respiratory Exam: Decreased Breath Sounds, NORMAL BREATHING PATTERN. absent: Wheezes - Cardiovascular Exam Cardiovascular Exam: REGULAR RHYTHM, +S1, +S2 - GI/Abdominal Exam GI & Abdominal Exam: Soft, Normal Bowel Sounds - Extremities Exam Extremities Exam: Pedal Edema - Neurological Exam Neurological Exam: Alert, Awake, Oriented x3 - Psychiatric Exam Psychiatric exam: Normal Mood Assessment and Plan - Assessment and Plan (Free Text) Assessment: (1) Colon cancer Assessment & Plan: with bladder extension for outpatient neoadjuvant chemotherapy Status: Acute (2) DVT (deep venous thrombosis) Assessment & Plan: Lovenox 90mg SC q12H. Status: Acute (3) Anemia Assessment & Plan: chronic disease s/p PRBC transfusion Continue monitoring Status: Acute (4) Pancreatic lesion Assessment & Plan: biopsy negative for malignancy Status: Acute (5) ESBL in blood Assessment & Plan: Management as per primary team. Status: Acute (6) VRE in urine Assessment & Plan: Management as per primary team. Status: Acute (7) Abscess Assessment & Plan: Gram negative rods found in abdominal abscess, continue abx as per primary team. Status: Acute
[2016-12-12 07:44] LABS: BASO % 0.2 % (0.0-2.0); EOS % 0.2 % (0.0-4.0); HEMATOCRIT 25.1 % (35.0-51.0); LYMPH # 0.9 K/uL (1.0-4.3); LYMPH % 10.1 % (20.0-40.0); MEAN CELL VOLUME 81.2 fL (80.0-94.0); MEAN CORPUSCULAR HEMOGLOBIN 26.8 pg (27.0-31.0); MEAN PLATELET VOLUME 9.4 fL (7.2-11.7); MONO # 0.8 K/uL (0.0-0.8); RED CELL DISTRIBUTION WIDTH 23.5 % (11.5-14.5); WHITE BLOOD COUNT 8.9 K/uL (4.8-10.8)
[2016-12-12] MEDS: (Novolog) Insulin Aspart, Recombinant 100 u/ml 10 ml vial SC SCH ×4 (08:11→21:55)
[2016-12-12 08:41] LABS: ALB/GLOB RATIO 0.5 (1.0-2.1); ALKALINE PHOSPHATASE 229 U/L (38-126); ALT/SGPT 33 U/L (21-72); AST/SGOT 18 U/L (17-59); BILIRUBIN,TOTAL 0.8 mg/dL (0.2-1.3); BLOOD UREA NITROGEN 11 mg/dL (9-20); CALCIUM 6.4 mg/dl (8.6-10.4); CARBON DIOXIDE 28 mmol/L (22-30); CHLORIDE 101 mmol/L (98-107); GFR AFRICAN-AMERICAN > 60; GLUCOSE,RANDOM 148 mg/dL (75-110); MAGNESIUM 1.7 mg/dL (1.6-2.3); PHOSPHOROUS 3.5 mg/dL (2.5-4.5); POTASSIUM 3.8 mmol/L (3.6-5.2); SODIUM 135 mmol/L (132-148); TOTAL PROTEIN 4.3 g/dL (6.3-8.3)
--- NOTE | 2016-12-12 09:03 | CP.PCM.PN ---
<RafaelSimin - Last Filed: 12/12/16 09:00> Subjective - Date & Time of Evaluation Date of Evaluation: 12/12/16 Time of Evaluation: 07:00 - Subjective Subjective: Medicine note for Dr. Cai Patient seen and examined at bedside. Patient reports he feels the same. Continues on nasal cannula, breathing is okay. abdominal CRYS drain still in place with low output. Having less episodes of diarrhea. No new complaints today. Denied any fever, chills, SOB, cough, abdominal pain, n/v, or urinary symptoms. Objective - Vital Signs/Intake and Output Vital Signs (last 24 hours): Temp Pulse Resp BP Pulse Ox 97.9 F 95 H 20 129/85 97 12/11/16 23:25 12/12/16 04:17 12/11/16 23:25 12/11/16 23:25 12/11/16 23:25 Intake and Output: 12/12/16 12/12/16 06:59 18:59 Intake Total 1020 Output Total 705 Balance 315 - Medications Medications: Current Medications Calcium/Vitamin D (Oyster Shell Calcium/Vitamin D 500 Mg-200 Iu) 1 tab PO DAILY [facility] Last Admin: 12/11/16 09:56 Dose: 1 tab Dextrose (Dextrose 50% Inj) 0 ml IV STAT PRN; Protocol PRN Reason: Hyglycemia Protocol Enoxaparin Sodium (Lovenox) 90 mg SC Q12 [facility] Last Admin: 12/11/16 22:26 Dose: 90 mg Gabapentin (Neurontin) 100 mg PO TID [facility] Last Admin: 12/11/16 17:52 Dose: 100 mg Hydroxyzine HCl (Atarax) 25 mg PO Q6 PRN PRN Reason: Anxiety Imipenem/Cilastatin Sodium 500 (mg/ Sodium Chloride) 100 mls @ 100 mls/hr IVPB Q6H [facility] Last Admin: 12/12/16 05:31 Dose: 100 mls/hr Ampicillin 2 gm/ Sodium (Chloride) 100 mls @ 50 mls/hr IVPB Q6H [facility] Last Admin: 12/12/16 06:40 Dose: 50 mls/hr Insulin Aspart (Novolog) 0 unit SC ACHS [facility] PRN Reason: Protocol Last Admin: 12/12/16 08:11 Dose: 2 unit Insulin Detemir (Levemir) 8 unit SC DAILY [facility] Last Admin: 12/11/16 09:55 Dose: Not Given Loperamide HCl (Imodium) 2 mg PO QID PRN PRN Reason: Diarrhea Last Admin: 12/11/16 09:53 Dose: 2 mg Midodrine (Proamatine) 2.5 mg PO TID [facility] Last Admin: 12/11/16 17:51 Dose: 2.5 mg Ondansetron HCl (Zofran Inj) 4 mg IVP Q6H PRN PRN Reason: Nausea/Vomiting Last Admin: 11/28/16 12:06 Dose: 4 mg Pantoprazole Sodium (Protonix Ec Tab) 40 mg PO DAILY [facility] Last Admin: 12/11/16 09:53 Dose: 40 mg Saccharomyces Boulardii (Florastor) 250 mg PO BID [facility] Last Admin: 12/11/16 17:51 Dose: 250 mg Sertraline HCl (Zoloft) 50 mg PO DAILY [facility] Last Admin: 12/11/16 09:53 Dose: 50 mg Zolpidem Tartrate (Ambien) 5 mg PO HS PRN PRN Reason: Insomnia Last Admin: 12/03/16 21:31 Dose: 5 mg - Labs Labs: 12/12/16 07:33 12/12/16 07:33 PT 15.0 SECONDS (9.7-12.2) H 12/03/16 07:08 INR 1.3 12/03/16 07:08 APTT 37 SECONDS (21-34) H 12/03/16 07:08 - Constitutional Appears: No Acute Distress, Chronically Ill - Head Exam Head Exam: NORMAL INSPECTION, NORMOCEPHALIC - Eye Exam Eye Exam: EOMI, Normal appearance, PERRL Pupil Exam: NORMAL ACCOMODATION - ENT Exam ENT Exam: Mucous Membranes Moist - Respiratory Exam Respiratory Exam: Decreased Breath Sounds, NORMAL BREATHING PATTERN - Cardiovascular Exam Cardiovascular Exam: Tachycardia, REGULAR RHYTHM, +S1, +S2 - GI/Abdominal Exam GI & Abdominal Exam: Soft, Normal Bowel Sounds. absent: Distended, Tenderness Additional comments: CRYS drain in place, low output < 25 cc/ 24 hours - Neurological Exam Neurological Exam: Alert, Awake, Oriented x3 - Psychiatric Exam Psychiatric exam: Depressed - Skin Skin Exam: Dry, Intact, Normal Color, Warm Assessment and Plan - Assessment and Plan (Free Text) Plan: Bacteremia Assessment & Plan: Continues to be tachycardic, normotensive. Afebrile since 12/06/16 REPEAT blood and urine cultures 12/10/16 negative x 48 hours 12/06/16 Blood culture + ESBL 12/06/16 Urine Culture + VRE CT abd/pelvis 12/07 showed enlargement of pelvic abscess, will consult IR for possible draining of abscess. - On Primaxin 400mg IVPB Q6 hours (started 12/06) - Start Ampicillin 2grams IVPB Q6 hours (started 12/08) - Was given 2 doses of Gentamicin on 12/07 and 12/06 12/10: IR consulted for pelvic abscess drainage. Mass has increased from 8.4 x 6.9 x x 6.7 (11/16) to 12 x 15 x 8.5 (12/07) Afebrile, no leukocytosis, bandemia at 4 today. Repeated CXR which is unchanged from previous on 12/06, bilateral pleural effusions R>L are stable. 12/06: Tachycardia, hypotensive, with bandemia at 27. Pt was jesus cultured. DC Rocephin. Was given a stat dose of Gentamycin and restarted on Primaxin. Possible source PICC line or RIJ Portacath. Continue on Ceftriaxone 2 gm IV Q24H for 14 days starting 11/29/16. Leukocytosis resolved. 11/30/17: As per ID, Repeat blood culture was negative, Primaxin and Flagyl was discontinued (11/29/16). Ceftriaxone 2 gm IV Q24H for 14 days starting 11/29/16 11/29/16: E. coli in blood culture on 11/15/16. Repeat blood culture on 11/23/16 was finalized as negative. I will speak with ID Dr. Burns concerning how much longer we need to continue the Primaxin and Flagyl 11/27: wbc trending down. afebrile. will continue primaxin and flagyl and monitor bands and wbc. Blood cultures negative after 3 days. 11/26: Patient in ICU for monitoring post OR, Bands 12 today, will monitor. 11/25: Blood cultures are negative after [address] Burns, con't tx for minimum of 14 days; Primaxin and Flagyl both started on 11/17. 11/19: HIV screen negative, Hep panel negative. Bands 26 today. 11/18: HIV 1&2 antibodies, Hep panel were ordered today. ID has been consulted, Dr Burns, we will follow his recommendations. 11/17: Changed to IV Primaxin 500mg IV Q6 Follow cultures. Currently blood pressure and HR stable. Nonfebrile. Continue with the IVF, monitor west outputs Status: Acute Pelvic Abscess Assessment & Plan: 12/10: IR consulted for pelvic abscess drainage . Mass has increased from 8.4 x 6.9 x x 6.7 (11/16) to 12 x 15 x 8.5 (12/07). CRYS drain in place. Output 25cc/ 24hr Status: Acute VRE + Urine Assessment & Plan: REPEAT urine cultures 12/10/16 negative x 48 hours Urine culture from west 12/06 shows UTI +VRE Dr. Burns ID informed Start Ampicillin 2 grams IVPB Q6 hours (started 12/08), On Primaxin 400mg IVPB Q6 hours (started 12/06) Contact precautions CHANGE OF WEST 12/10/16 Status: Acute Anemia of chronic disease Assessment & Plan: Hemoglobin is stable today 8.3. MONITOR may need to transfuse in future if H/H drops S/P transfusion total 2 units PRBCs 12/06 [employer] was called on patient 12/04/16 due hypotension. Lasix was discontinued. He was given a fluid bolus, albumin and continued with the 1 unit of PRBCs. Patient was given albumin again today. And will be transfused another unit of PRBCs due to hemoglobin of 7.8. H/H was 7.7/27.4 - Consent retrieved- patient will be transfused 1 unit of PRBCs 11/26: After discussing with Heme/Onc Dr Garcia, since Ferritin is normal ferrlecit will not provide much benefit, will discontinue 11/25: Will start Ferrlecit 125mg iv daily after surgical procedure 11/25: Hgb stable at 8.6. Status: Acute Pleural Effusions Assessment & Plan: Repeated CXR 12/10/16 which is unchanged from previous on 12/06, bilateral pleural effusions R>L are stable. Repeat CXR (12/06) shows: Decreased bilateral pleural effusion. Probable linear atelectasis at left base. 12/07 CXR 12/02 compared to 11/15 --> B/L pleural effusions R>L. Was placed on lasix 20mg IVP Q12. Pulmonology consulted, Dr. Mccormick - patient is for thoracentesis. IR reported not enough fluid for thoracentesis. 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 12/06 C diff negative - Immodium added Stool culture negative for salmonella, shigella, campylobacter Stool leukocytes negative Ova and parasites not seen S/P RIJ Portacath insertion (12/03), s/p exploratory laparotomy (11/26) POD#10, w/ findings of unresectable rectosigmoid mass. 12/02/16 POD #6; Surgery will remove abdominal incision jody on POD #10. Surgery reconsulted for portacath placement. NPO past midnight tonight for OR tomorrow morning. 11/30/16: POD # 4: As per conversation with Dr. Lake Harris on 11/29/16, patient has decided to be DNR/DNI 11/29/16: POD #3. Patient is still undecided concerning further management. If he decides to proceed then he will need a Chemo Port placed. He has signed DNR/ DNI. I discussed patient's decision concerning further treatment with Dr. Willow Garcia on the night of 11/28/1611/28: s/p exploratory laparotomy POD2, w/ findings of unresectable rectosigmoid mass. Patient stated today he does not want the chemoport, he said he wants time to think about it. Patient appears tired and he does not want to make sudden decisions. No morning labs, blood draw was difficult this morning due to poor vein access. 11/27: s/p exploratory laparotomy POD1, w/ findings of unresectable rectosigmoid mass. Per surgery note, patient will need a portacath placement, time and date to be determined. Will stop heparin drip (tx for RUE deep vein thrombosis) 4 hours prior to portacath placement procedure. 11/26: Per rn surgical pcu, the surgery today to resect patient's sigmoid mass was halted after it was determined the mass was too large/firm for removal. The patient will be treated with a neoadjuvant with hopes of shrinking the size of the tumor with possible surgery for removal at a later date. Patient was sent to ICU post OR for monitoring. 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 Due to lovenox longer half life, therapeutic lovenox was discontinued and heparin was started. Heparin 8000u iv bolus was given and heparin drip was started at 18u/kg/hr. This drip will be stopped at exactly 5am, 4 hours before surgery. 11/21: Pt s/p cystoscopy today. Patient found to have invasion to dome of urinary bladder. Surgery to plan for surgery some time next week 11/21: Per GI, Abdominal U/S obtained to rule out SV thrombosis given presence of gastroesopahgeal varices seen on endoscopic examination -> Abdominal U/S: 1. Hepatocellular disease without focal hepatic mass. 2. Patent portal venous system including splenic vein. 3. Cholelithiasis. No sonographic evidence of acute cholecystitis. 4. Cystic mass in the head of the pancreas. Remainder the pancreas is not visualized. 11/21: PICC placed today by IR DR Armando. 11/20: s/p upper EUS: "LA grade C erosive esophagitis. 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 75mm x 65mm psedocyst seen in pancreatic body, fine needle aspiration for fluid performed. Varices were visualized endosonographically in fundus of stomach". Will f/u cystology and CEA levels. 11/20: s/p venous duplex of upper extremities: "right: acute thrombosis of right subclavian, axillary and brachial veins with severe reduction of venous return. left: acute thrombosis of left cephatlic vein with severe reduction of venous return". Therapeutic lovenox started -> 90mg q12 sc. 11/20: s/p venous duplex of lower extremeties: negative 11/19: GI to perform EUS tomorrow. Advanced diet to liquid - will advance as tolerated. B/l upper and lower extremity duplex scans were ordered today. 11/18: Patient is s/p EGD/Colonoscopy. A 10cm partially obstructing sigmoid mass was seen and biopsied. Multiple polyps were seen and resected. Heme/Onc, Dr Garcia has been consulted, we will follow up with his recommendations. CT chest abdomen and pelvis findings as noted: suspected sigmoid and proximal rectum mass lesion without evidence of high grade bowel obstruction; suspected abscess formation; cystic mass lesion noted at pancreas with surrounding fat stranding of the pancreatic tail; large gallstones without evidence of acute cholecystitis GI consult (Dr. Srivastava)---> Help appreciated General Surgery Consult (Dr. Amin)----> Help appreciated Urology Consult (Dr. Jon)----> Help appreciated Status: Acute Acute deep vein thrombosis (DVT) of right upper extremity Assessment & Plan: Continue therapeutic Lovenox at 90 mg SC Q12H 11/29: Heparin Drip was discontinued on 11/28/16 as PTT could not be measured secondary to inability to draw blood from edematous arms and could not draw blood from left arm PICC for the PTT level due to the Heprin Drip being infused through the PICC. Therefore patient was restarted on therapeutic Lovenox at 90 mg SC Q12H 11/27: Heparin drip restarted at 18u/kg/hr. Heparin bolus 8,000u given prior to start of drip. 11/26: Per surgery, plan is to restart anticoagulant tomorrow morning Status: Acute Uncontrolled diabetes mellitus Assessment & Plan: Levemir 15 units SC HS---> Resumed today Recent HgbA1C: 11.5 (11/20/16) Accuchecks Aspart ISS - low Status: Chronic Esophageal abrasion Assessment & Plan: 11/18: Per endoscopy report * Ulcerated mucosa in the lower third of the esophagus was seen and biopsied. * Patient is on Protonix 40 mg PO BID. Status: Acute Pancreatic lesion Assessment & Plan: GI outpatient follow-up 11/26: Pancreatic cyst FNA negative for malignant cells per cytology report. 11/25: Per labor relations specialist, EUS performed on 11/20 sampled pancreatic cyst fluid with diagnostic studies ordered for ptf amylase and ptfCEA only 11/20: Upper EUS performed today: "75mm x 65mm psedocyst seen in pancreatic body , fine needle aspiration for fluid performed 11/18: CT abd/pelvis shows cystic mass lesion at pancreas with fat stranding of pacreatic tail. Lipase level and lipid panel was ordered today. 11/17: CA 19-9 wnl Status: Acute Cholelithiasis Assessment & Plan: GI outpatient follow-up 11/18: CT abd/pelvis shows large gallstones without evidence of acute cholecystitis. Denies abd pain Status: Acute Abnormal cardiovascular stress test Assessment & Plan: Cardiology outpatient follow-up 11/25: Nuclear Stress Test: Defect in mid-anteroseptal wall, defect in basal inferoseptal wall, fixed apical defect old CA, small defect inferior wall 11/25: ECHO: left ventricle systolic function is normal. EF is 50-55%. Status: Acute Major Depressive Disorder Assessment & Plan: Dr. Loredo consulted, help appreciated Zoloft 50mg PO daily Psychoeducation Status: Acute Prophylactic measure Assessment & Plan: Protonix 40 mg PO BID Lovenox 90mg IV q12H Florastor PO BID Ambien 5 mg PO HS Glucerna Shake 3 times a day help increase his protein level Physical Therapy started on 11/29/16 Status: Acute Disposition: Patient will be discharged home once medically stable and ABLE TO AMBULATE with wheelchair, walker or cane and instructed to follow up with the [facility] for a referral for Dr. Garcia to have outpatient chemotherapy. DW Dr. Cai, Rafael IVERSON, PGY-1 <Abdiel Cai H - Last Filed: 12/12/16 12:06> Objective - Vital Signs/Intake and Output Vital Signs (last 24 hours): Temp Pulse Resp BP Pulse Ox 98.0 F 106 H 18 102/68 98 12/12/16 09:03 12/12/16 09:03 12/12/16 09:03 12/12/16 09:03 12/12/16 09:03 Intake and Output: 12/12/16 12/12/16 06:59 18:59 Intake Total 1020 Output Total 705 Balance 315 - Medications Medications: Current Medications Calcium/Vitamin D (Oyster Shell Calcium/Vitamin D 500 Mg-200 Iu) 1 tab PO DAILY [facility] Last Admin: 12/11/16 09:56 Dose: 1 tab Dextrose (Dextrose 50% Inj) 0 ml IV STAT PRN; Protocol PRN Reason: Hyglycemia Protocol Enoxaparin Sodium (Lovenox) 90 mg SC Q12 [facility] Last Admin: 12/12/16 10:00 Dose: 90 mg Gabapentin (Neurontin) 100 mg PO TID [facility] Last Admin: 12/12/16 09:59 Dose: 100 mg Hydroxyzine HCl (Atarax) 25 mg PO Q6 PRN PRN Reason: Anxiety Imipenem/Cilastatin Sodium 500 (mg/ Sodium Chloride) 100 mls @ 100 mls/hr IVPB Q6H [facility] Last Admin: 12/12/16 05:31 Dose: 100 mls/hr Ampicillin 2 gm/ Sodium (Chloride) 100 mls @ 50 mls/hr IVPB Q6H [facility] Last Admin: 12/12/16 06:40 Dose: 50 mls/hr Insulin Aspart (Novolog) 0 unit SC ACHS [facility] PRN Reason: Protocol Last Admin: 12/12/16 08:11 Dose: 2 unit Insulin Detemir (Levemir) 8 unit SC DAILY [facility] Last Admin: 12/12/16 10:00 Dose: 8 unit Loperamide HCl (Imodium) 2 mg PO QID PRN PRN Reason: Diarrhea Last Admin: 12/11/16 09:53 Dose: 2 mg Midodrine (Proamatine) 2.5 mg PO TID [facility] Last Admin: 12/12/16 09:59 Dose: 2.5 mg Ondansetron HCl (Zofran Inj) 4 mg IVP Q6H PRN PRN Reason: Nausea/Vomiting Last Admin: 11/28/16 12:06 Dose: 4 mg Pantoprazole Sodium (Protonix Ec Tab) 40 mg PO DAILY [facility] Last Admin: 12/12/16 09:59 Dose: 40 mg Saccharomyces Boulardii (Florastor) 250 mg PO BID [facility] Last Admin: 12/12/16 09:59 Dose: 250 mg Sertraline HCl (Zoloft) 50 mg PO DAILY [facility] Last Admin: 12/12/16 09:59 Dose: 50 mg Zolpidem Tartrate (Ambien) 5 mg PO HS PRN PRN Reason: Insomnia Last Admin: 12/03/16 21:31 Dose: 5 mg - Labs Labs: 12/12/16 07:33 12/12/16 07:33 PT 15.0 SECONDS (9.7-12.2) H 12/03/16 07:08 INR 1.3 12/03/16 07:08 APTT 37 SECONDS (21-34) H 12/03/16 07:08 Attending/Attestation - Attestation I have personally seen and examined this patient.: Yes I have fully participated in the care of the patient.: Yes I have reviewed all pertinent clinical information, including history, physical exam and plan: Yes Notes (Text): 12/12/16 12:05 Medical attending: Patient was seen and examined by me, agree with the above note by manager medical. The output in the pelvic drain has decreased substantially. It did grow out ESBL Escherichia coli. As mentioned previously several days ago he had ESBL Escherichia coli positive in the blood stream as well as VRE in the urine. He's currently remains on IV into biotics at this time. They're to try to get him up to walk in his room or have set at bedside as he does appear to be very deconditioned Thank you very much, Abdiel Cai
--- NOTE | 2016-12-12 09:24 | CT ---
PROCEDURE: Date of procedure: 12/10/2016 Procedure: 1. Pelvic abscess drainage with CT guidance, CPT 77242 Medications: The patient received IV sedation administered by anesthesiologist HISTORY: Bowel perforation and pelvic abscess. TECHNIQUE: Following informed consent procedure time-out, non contrast CT was performed which showed a large complex pelvic abscess. The skin localizer was placed on the patient's abdomen and a repeat CT scan performed. The skin was marked, prepped, and draped in the usual sterile fashion. Under CT guidance, a [employer] drainage catheter was advanced into the collection. Upon return of purulent drainage, the catheter exchanged over an 035 guidewire and the tract was dilated to accommodate a 10 [place] pigtail drainage catheter formed within the collection. The position of the 10 Fr drainage catheter was confirmed with repeat CT scan. 60 cubic centimeters of purulent drainage was removed and sent for culture and sensitivity. The catheter was secured the patient's skin. A dressing was applied. IMPRESSION: CT-guided abscess drainage within the placement of a 10 [place] drainage catheter with abscess. The fluid specimen was sent for culture and sensitivity.
[2016-12-12] MEDS: Saccharomyces Boulardi 250 mg Cap PO SCH ×2 (09:59→17:34)
[2016-12-12] MEDS: Pantoprazole 40 mg EC Tab PO SCH (09:59)
[2016-12-12] MEDS: Insulin Detemir 100 units/ml Vial (Levemir) SC SCH (10:00)
[2016-12-12] MEDS: Enoxaparin 100 mg Syringe SC SCH ×2 (10:00→21:33)
[2016-12-12] MEDS: Calcium-Vit D 500 mg-200 Units Tab UD PO SCH (12:41)
--- NOTE | 2016-12-12 17:49 | CP.PCM.PN ---
Subjective - Date & Time of Evaluation Date of Evaluation: 12/12/16 Time of Evaluation: 09:00 - Subjective Subjective: CRYS drain in place e coli MDRO from blood and drain CA with abscess cont iv rx poor prognosis Objective - Vital Signs/Intake and Output Vital Signs (last 24 hours): Temp Pulse Resp BP Pulse Ox 98.0 F 106 H 18 102/68 98 12/12/16 09:03 12/12/16 09:03 12/12/16 09:03 12/12/16 09:03 12/12/16 09:03 Intake and Output: 12/12/16 12/12/16 06:59 18:59 Intake Total 1020 Output Total 705 Balance 315 - Medications Medications: Current Medications Calcium/Vitamin D (Oyster Shell Calcium/Vitamin D 500 Mg-200 Iu) 1 tab PO DAILY [facility] Last Admin: 12/12/16 12:41 Dose: Not Given Dextrose (Dextrose 50% Inj) 0 ml IV STAT PRN; Protocol PRN Reason: Hyglycemia Protocol Last Admin: 12/12/16 17:32 Dose: 50 ml Enoxaparin Sodium (Lovenox) 90 mg SC Q12 [facility] Last Admin: 12/12/16 10:00 Dose: 90 mg Gabapentin (Neurontin) 100 mg PO TID [facility] Last Admin: 12/12/16 17:35 Dose: 100 mg Hydroxyzine HCl (Atarax) 25 mg PO Q6 PRN PRN Reason: Anxiety Imipenem/Cilastatin Sodium 500 (mg/ Sodium Chloride) 100 mls @ 100 mls/hr IVPB Q6H [facility] Last Admin: 12/12/16 17:32 Dose: 100 mls/hr Ampicillin 2 gm/ Sodium (Chloride) 100 mls @ 50 mls/hr IVPB Q6H [facility] Last Admin: 12/12/16 14:20 Dose: 50 mls/hr Gentamicin Sulfate 80 mg/ (Sodium Chloride) 102 mls @ 100 mls/hr IVPB Q8H [facility] Insulin Aspart (Novolog) 0 unit SC ACHS [facility] PRN Reason: Protocol Last Admin: 12/12/16 17:38 Dose: Not Given Insulin Detemir (Levemir) 8 unit SC DAILY [facility] Last Admin: 12/12/16 10:00 Dose: 8 unit Loperamide HCl (Imodium) 2 mg PO QID PRN PRN Reason: Diarrhea Last Admin: 12/12/16 12:38 Dose: 2 mg Midodrine (Proamatine) 2.5 mg PO TID [facility] Last Admin: 12/12/16 17:34 Dose: 2.5 mg Ondansetron HCl (Zofran Inj) 4 mg IVP Q6H PRN PRN Reason: Nausea/Vomiting Last Admin: 11/28/16 12:06 Dose: 4 mg Pantoprazole Sodium (Protonix Ec Tab) 40 mg PO DAILY [facility] Last Admin: 12/12/16 09:59 Dose: 40 mg Saccharomyces Boulardii (Florastor) 250 mg PO BID [facility] Last Admin: 12/12/16 17:34 Dose: 250 mg Sertraline HCl (Zoloft) 50 mg PO DAILY [facility] Last Admin: 12/12/16 09:59 Dose: 50 mg Zolpidem Tartrate (Ambien) 5 mg PO HS PRN PRN Reason: Insomnia Last Admin: 12/03/16 21:31 Dose: 5 mg - Labs Labs: 12/12/16 07:33 12/12/16 07:33 PT 15.0 SECONDS (9.7-12.2) H 12/03/16 07:08 INR 1.3 12/03/16 07:08 APTT 37 SECONDS (21-34) H 12/03/16 07:08 - Constitutional Appears: Cachectic, Chronically Ill - Head Exam Head Exam: NORMOCEPHALIC - Eye Exam Eye Exam: absent: Scleral icterus - ENT Exam ENT Exam: Mucous Membranes Dry - Neck Exam Neck Exam: absent: Lymphadenopathy - Respiratory Exam Respiratory Exam: Decreased Breath Sounds - Cardiovascular Exam Cardiovascular Exam: REGULAR RHYTHM - GI/Abdominal Exam GI & Abdominal Exam: Distended Assessment and Plan (1) Chronic diarrhea Status: Deleted (2) Colonic mass Status: Acute (3) Diabetic ketosis Status: Acute (4) GI bleeding Status: Acute (5) E coli bacteremia Status: Acute (6) E coli bacteremia Status: Acute
[2016-12-13 07:31] LABS: BASO % 0.2 % (0.0-2.0); EOS % 0.4 % (0.0-4.0); HEMATOCRIT 24.2 % (35.0-51.0); LYMPH % 12.6 % (20.0-40.0); MEAN CELL VOLUME 81.8 fL (80.0-94.0); MEAN CORPUSCULAR HEMOGLOBIN 26.2 pg (27.0-31.0); MEAN PLATELET VOLUME 9.4 fL (7.2-11.7); MONO # 0.7 K/uL (0.0-0.8); MONO % 9.1 % (0.0-10.0); RED CELL DISTRIBUTION WIDTH 23.3 % (11.5-14.5); WHITE BLOOD COUNT 8.1 K/uL (4.8-10.8)
[2016-12-13] MEDS: (Novolog) Insulin Aspart, Recombinant 100 u/ml 10 ml vial SC SCH ×4 (07:41→21:19)
[2016-12-13 07:51] LABS: CHLORIDE 102 mmol/L (98-107); POTASSIUM 3.6 mmol/L (3.6-5.2); SODIUM 134 mmol/L (132-148)
[2016-12-13 07:53] LABS: BILIRUBIN,TOTAL 0.6 mg/dL (0.2-1.3); GFR AFRICAN-AMERICAN > 60
[2016-12-13 07:54] LABS: ALB/GLOB RATIO 0.6 (1.0-2.1); ALKALINE PHOSPHATASE 210 U/L (38-126); ALT/SGPT 27 U/L (21-72); AST/SGOT 18 U/L (17-59); BLOOD UREA NITROGEN 11 mg/dL (9-20); CALCIUM 6.3 mg/dl (8.6-10.4); CARBON DIOXIDE 29 mmol/L (22-30); GLUCOSE,RANDOM 79 mg/dL (75-110); PHOSPHOROUS 3.4 mg/dL (2.5-4.5); TOTAL PROTEIN 4.1 g/dL (6.3-8.3)
[2016-12-13 07:55] LABS: MAGNESIUM 1.7 mg/dL (1.6-2.3)
[2016-12-13] MEDS: Megestrol Acetate 40 mg/ml Cup PO SCH (09:28)
[2016-12-13] MEDS: Saccharomyces Boulardi 250 mg Cap PO SCH ×2 (09:28→17:13)
[2016-12-13] MEDS: Pantoprazole 40 mg EC Tab PO SCH (09:28)
[2016-12-13] MEDS: Enoxaparin 100 mg Syringe SC SCH ×2 (09:28→21:18)
[2016-12-13] MEDS: Calcium-Vit D 500 mg-200 Units Tab UD PO SCH (09:28)
[2016-12-13] MEDS: Insulin Detemir 100 units/ml Vial (Levemir) SC SCH (09:35)
[2016-12-13] MEDS ORDERED: Megestrol Acetate 40 mg/ml Cup PO SCH (10:00)
--- NOTE | 2016-12-13 13:35 | CP.PCM.PN ---
<RafaelSimin - Last Filed: 12/13/16 13:30> Subjective - Date & Time of Evaluation Date of Evaluation: 12/13/16 Time of Evaluation: 07:00 - Subjective Subjective: Medicine note for Dr. Cai Patient seen and examined at bedside. Patient reports he feels the same. Continues on nasal cannula, breathing is okay. Abdominal CRYS drain still in place with moderate output. Having less episodes of diarrhea. Patient was seen sitting in chair. Denied any fever, chills, SOB, cough, abdominal pain, n/v, or urinary symptoms. Objective - Vital Signs/Intake and Output Vital Signs (last 24 hours): Temp Pulse Resp BP Pulse Ox 98.5 F 94 H 20 103/70 96 12/13/16 13:12 12/13/16 13:12 12/13/16 13:12 12/13/16 13:12 12/12/16 23:35 Intake and Output: 12/13/16 12/13/16 06:59 18:59 Intake Total 0 Output Total 985 Balance -985 0 - Medications Medications: Current Medications Calcium/Vitamin D (Oyster Shell Calcium/Vitamin D 500 Mg-200 Iu) 1 tab PO DAILY [facility] Last Admin: 12/13/16 09:28 Dose: 1 tab Dextrose (Dextrose 50% Inj) 0 ml IV STAT PRN; Protocol PRN Reason: Hyglycemia Protocol Last Admin: 12/12/16 17:32 Dose: 50 ml Enoxaparin Sodium (Lovenox) 90 mg SC Q12 [facility] Last Admin: 12/13/16 09:28 Dose: 90 mg Gabapentin (Neurontin) 100 mg PO TID [facility] Last Admin: 12/13/16 09:27 Dose: 100 mg Hydroxyzine HCl (Atarax) 25 mg PO Q6 PRN PRN Reason: Anxiety Imipenem/Cilastatin Sodium 500 (mg/ Sodium Chloride) 100 mls @ 100 mls/hr IVPB Q6H [facility] Last Admin: 12/13/16 11:20 Dose: 100 mls/hr Ampicillin 2 gm/ Sodium (Chloride) 100 mls @ 50 mls/hr IVPB Q6H [facility] Last Admin: 12/13/16 07:40 Dose: 50 mls/hr Gentamicin Sulfate 80 mg/ (Sodium Chloride) 102 mls @ 100 mls/hr IVPB Q8H [facility] Last Admin: 12/13/16 09:29 Dose: 100 mls/hr Insulin Aspart (Novolog) 0 unit SC ACHS [facility] PRN Reason: Protocol Last Admin: 12/13/16 12:17 Dose: 2 unit Insulin Detemir (Levemir) 8 unit SC DAILY [facility] Last Admin: 12/13/16 09:35 Dose: 8 unit Loperamide HCl (Imodium) 2 mg PO QID PRN PRN Reason: Diarrhea Last Admin: 12/13/16 09:27 Dose: 2 mg Megestrol Acetate (Megace) 400 mg PO DAILY [facility] Last Admin: 12/13/16 09:28 Dose: 400 mg Midodrine (Proamatine) 2.5 mg PO TID [facility] Last Admin: 12/13/16 09:28 Dose: 2.5 mg Ondansetron HCl (Zofran Inj) 4 mg IVP Q6H PRN PRN Reason: Nausea/Vomiting Last Admin: 11/28/16 12:06 Dose: 4 mg Pantoprazole Sodium (Protonix Ec Tab) 40 mg PO DAILY [facility] Last Admin: 12/13/16 09:28 Dose: 40 mg Saccharomyces Boulardii (Florastor) 250 mg PO BID [facility] Last Admin: 12/13/16 09:28 Dose: 250 mg Sertraline HCl (Zoloft) 50 mg PO DAILY [facility] Last Admin: 12/13/16 09:27 Dose: 50 mg Zolpidem Tartrate (Ambien) 5 mg PO HS PRN PRN Reason: Insomnia Last Admin: 12/03/16 21:31 Dose: 5 mg - Labs Labs: 12/13/16 07:09 12/13/16 07:09 PT 15.0 SECONDS (9.7-12.2) H 12/03/16 07:08 INR 1.3 12/03/16 07:08 APTT 37 SECONDS (21-34) H 12/03/16 07:08 - Constitutional Appears: No Acute Distress, Chronically Ill - Head Exam Head Exam: NORMAL INSPECTION, NORMOCEPHALIC - Eye Exam Eye Exam: EOMI, Normal appearance, PERRL - ENT Exam ENT Exam: Mucous Membranes Moist - Respiratory Exam Respiratory Exam: Decreased Breath Sounds, NORMAL BREATHING PATTERN - Cardiovascular Exam Cardiovascular Exam: REGULAR RHYTHM, RRR, +S1, +S2 - GI/Abdominal Exam GI & Abdominal Exam: Soft, Normal Bowel Sounds - Extremities Exam Extremities Exam: Normal Inspection. absent: Pedal Edema, Tenderness - Neurological Exam Neurological Exam: Alert, Awake, Oriented x3 - Skin Skin Exam: Dry, Intact, Normal Color, Warm Assessment and Plan - Assessment and Plan (Free Text) Plan: Anemia of chronic disease Assessment & Plan: Hemoglobin is stable today 7.8. Patient will be transfused 2 units PRBCs. Continue to monitor. S/P transfusion total 2 units PRBCs 12/06 ALLERGY NURSE was called on patient 12/04/16 due hypotension. Lasix was discontinued. He was given a fluid bolus, albumin and continued with the 1 unit of PRBCs. Patient was given albumin again today. And will be transfused another unit of PRBCs due to hemoglobin of 7.8. H/H was 7.7/.4 - Consent retrieved- patient will be transfused 1 unit of PRBCs 11/26: After discussing with Heme/Onc Dr Garcia, since Ferritin is normal ferrlecit will not provide much benefit, will discontinue 11/25: Will start Ferrlecit 125mg iv daily after surgical procedure 11/25: Hgb stable at 8.6. Status: Acute Bacteremia Assessment & Plan: Continues to be tachycardic, normotensive. Afebrile since 12/06/16 REPEAT blood and urine cultures 12/10/16 negative x 3 days 12/06/16 Blood culture + ESBL 12/06/16 Urine Culture + VRE CT abd/pelvis 12/07 showed enlargement of pelvic abscess, will consult IR for possible draining of abscess. - On Primaxin 400mg IVPB Q6 hours (started 12/06) - Start Ampicillin 2grams IVPB Q6 hours (started 12/08) - Was given 2 doses of Gentamicin on 12/07 and 12/06 12/10: IR consulted for pelvic abscess drainage. Mass has increased from 8.4 x 6.9 x x 6.7 (11/16) to 12 x 15 x 8.5 (12/07) Afebrile, no leukocytosis, bandemia at 4 today. Repeated CXR which is unchanged from previous on 12/06, bilateral pleural effusions R>L are stable. 12/06: Tachycardia, hypotensive, with bandemia at 27. Pt was jesus cultured. DC Rocephin. Was given a stat dose of Gentamycin and restarted on Primaxin. Possible source PICC line or RIJ Portacath. Continue on Ceftriaxone 2 gm IV Q24H for 14 days starting 11/29/16. Leukocytosis resolved. 11/30/17: As per ID, Repeat blood culture was negative, Primaxin and Flagyl was discontinued (11/29/16). Ceftriaxone 2 gm IV Q24H for 14 days starting 11/29/16 11/29/16: E. coli in blood culture on 11/15/16. Repeat blood culture on 11/23/16 was finalized as negative. I will speak with ID Dr. Burns concerning how much longer we need to continue the Primaxin and Flagyl 11/27: wbc trending down. afebrile. will continue primaxin and flagyl and monitor bands and wbc. Blood cultures negative after 3 days. 11/26: Patient in ICU for monitoring post OR, Bands 12 today, will monitor. 11/25: Blood cultures are negative after [address] Burns, con't tx for minimum of 14 days; Primaxin and Flagyl both started on 11/17. 11/19: HIV screen negative, Hep panel negative. Bands 26 today. 11/18: HIV 1&2 antibodies, Hep panel were ordered today. ID has been consulted, Dr Burns, we will follow his recommendations. 11/17: Changed to IV Primaxin 500mg IV Q6 Follow cultures. Currently blood pressure and HR stable. Nonfebrile. Continue with the IVF, monitor west outputs Status: Acute Pelvic Abscess Assessment & Plan: 12/10: IR consulted for pelvic abscess drainage . Mass has increased from 8.4 x 6.9 x x 6.7 (11/16) to 12 x 15 x 8.5 (12/07). CRYS drain in place. Continues to drain. Status: Acute VRE + Urine Assessment & Plan: REPEAT urine cultures 12/10/16 negative x 3 days Urine culture from west 12/06 shows UTI +VRE Dr. Burns ID informed Start Ampicillin 2 grams IVPB Q6 hours (started 12/08), On Primaxin 400mg IVPB Q6 hours (started 12/06) Contact precautions CHANGE OF WEST 12/10/16 Status: Acute Pleural Effusions Assessment & Plan: Repeated CXR 12/10/16 which is unchanged from previous on 12/06, bilateral pleural effusions R>L are stable. Repeat CXR (12/06) shows: Decreased bilateral pleural effusion. Probable linear atelectasis at left base. 12/07 CXR 12/02 compared to 11/15 --> B/L pleural effusions R>L. Was placed on lasix 20mg IVP Q12. Pulmonology consulted, Dr. Mccormick - patient is for thoracentesis. IR reported not enough fluid for thoracentesis. 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 12/06 C diff negative - Immodium added Stool culture negative for salmonella, shigella, campylobacter Stool leukocytes negative Ova and parasites not seen S/P RIJ Portacath insertion (12/03), s/p exploratory laparotomy (11/26) POD#10, w/ findings of unresectable rectosigmoid mass. 12/02/16 POD #6; Surgery will remove abdominal incision jody on POD #10. Surgery reconsulted for portacath placement. NPO past midnight tonight for OR tomorrow morning. 11/30/16: POD # 4: As per conversation with Dr. Lake Harris on 11/29/16, patient has decided to be DNR/DNI 11/29/16: POD #3. Patient is still undecided concerning further management. If he decides to proceed then he will need a Chemo Port placed. He has signed DNR/ DNI. I discussed patient's decision concerning further treatment with Dr. Willow Garcia on the night of 11/28/1611/28: s/p exploratory laparotomy POD2, w/ findings of unresectable rectosigmoid mass. Patient stated today he does not want the chemoport, he said he wants time to think about it. Patient appears tired and he does not want to make sudden decisions. No morning labs, blood draw was difficult this morning due to poor vein access. 11/27: s/p exploratory laparotomy POD1, w/ findings of unresectable rectosigmoid mass. Per surgery note, patient will need a portacath placement, time and date to be determined. Will stop heparin drip (tx for RUE deep vein thrombosis) 4 hours prior to portacath placement procedure. 11/26: Per resident physician in radiology, the surgery today to resect patient's sigmoid mass was halted after it was determined the mass was too large/firm for removal. The patient will be treated with a neoadjuvant with hopes of shrinking the size of the tumor with possible surgery for removal at a later date. Patient was sent to ICU post OR for monitoring. 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 Due to lovenox longer half life, therapeutic lovenox was discontinued and heparin was started. Heparin 8000u iv bolus was given and heparin drip was started at 18u/kg/hr. This drip will be stopped at exactly 5am, 4 hours before surgery. 11/21: Pt s/p cystoscopy today. Patient found to have invasion to dome of urinary bladder. Surgery to plan for surgery some time next week 11/21: Per GI, Abdominal U/S obtained to rule out SV thrombosis given presence of gastroesopahgeal varices seen on endoscopic examination -> Abdominal U/S: 1. Hepatocellular disease without focal hepatic mass. 2. Patent portal venous system including splenic vein. 3. Cholelithiasis. No sonographic evidence of acute cholecystitis. 4. Cystic mass in the head of the pancreas. Remainder the pancreas is not visualized. 11/21: PICC placed today by IR DR Armando. 11/20: s/p upper EUS: "LA grade C erosive esophagitis. 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 75mm x 65mm psedocyst seen in pancreatic body, fine needle aspiration for fluid performed. Varices were visualized endosonographically in fundus of stomach". Will f/u cystology and CEA levels. 11/20: s/p venous duplex of upper extremities: "right: acute thrombosis of right subclavian, axillary and brachial veins with severe reduction of venous return. left: acute thrombosis of left cephatlic vein with severe reduction of venous return". Therapeutic lovenox started -> 90mg q12 sc. 11/20: s/p venous duplex of lower extremeties: negative 11/19: GI to perform EUS tomorrow. Advanced diet to liquid - will advance as tolerated. B/l upper and lower extremity duplex scans were ordered today. 11/18: Patient is s/p EGD/Colonoscopy. A 10cm partially obstructing sigmoid mass was seen and biopsied. Multiple polyps were seen and resected. Heme/Onc, Dr Garcia has been consulted, we will follow up with his recommendations. CT chest abdomen and pelvis findings as noted: suspected sigmoid and proximal rectum mass lesion without evidence of high grade bowel obstruction; suspected abscess formation; cystic mass lesion noted at pancreas with surrounding fat stranding of the pancreatic tail; large gallstones without evidence of acute cholecystitis GI consult (Dr. Srivastava)---> Help appreciated General Surgery Consult (Dr. Amin)----> Help appreciated Urology Consult (Dr. Jon)----> Help appreciated Status: Acute Acute deep vein thrombosis (DVT) of right upper extremity Assessment & Plan: Continue therapeutic Lovenox at 90 mg SC Q12H 11/29: Heparin Drip was discontinued on 11/28/16 as PTT could not be measured secondary to inability to draw blood from edematous arms and could not draw blood from left arm PICC for the PTT level due to the Heprin Drip being infused through the PICC. Therefore patient was restarted on therapeutic Lovenox at 90 mg SC Q12H 11/27: Heparin drip restarted at 18u/kg/hr. Heparin bolus 8,000u given prior to start of drip. 11/26: Per surgery, plan is to restart anticoagulant tomorrow morning Status: Acute Uncontrolled diabetes mellitus Assessment & Plan: Levemir 15 units SC HS---> DC due to continue hypoglycemic events and decreased appetite. Recent HgbA1C: 11.5 (11/20/16) Accuchecks Aspart ISS - low Status: Chronic Esophageal abrasion Assessment & Plan: 11/18: Per endoscopy report * Ulcerated mucosa in the lower third of the esophagus was seen and biopsied. Pathology negative for h pylori. * Patient is on Protonix 40 mg PO BID. Status: Acute Pancreatic lesion Assessment & Plan: GI outpatient follow-up 11/26: Pancreatic cyst FNA negative for malignant cells per cytology report. 11/25: Per [employer]orer stores, EUS performed on 11/20 sampled pancreatic cyst fluid with diagnostic studies ordered for ptf amylase and ptfCEA only 11/20: Upper EUS performed today: "75mm x 65mm psedocyst seen in pancreatic body , fine needle aspiration for fluid performed 11/18: CT abd/pelvis shows cystic mass lesion at pancreas with fat stranding of pacreatic tail. Lipase level and lipid panel was ordered today. 11/17: CA 19-9 wnl Status: Acute Cholelithiasis Assessment & Plan: GI outpatient follow-up 11/18: CT abd/pelvis shows large gallstones without evidence of acute cholecystitis. Denies abd pain Status: Acute Abnormal cardiovascular stress test Assessment & Plan: Cardiology outpatient follow-up 11/25: Nuclear Stress Test: Defect in mid-anteroseptal wall, defect in basal inferoseptal wall, fixed apical defect old PR, small defect inferior wall 11/25: ECHO: left ventricle systolic function is normal. EF is 50-55%. Status: Acute Major Depressive Disorder Assessment & Plan: Dr. Loredo consulted, help appreciated Zoloft 50mg PO daily Psychoeducation Status: Acute Prophylactic measure Assessment & Plan: Protonix 40 mg PO BID Lovenox 90mg IV q12H Florastor PO BID Ambien 5 mg PO HS Megace started 100mg PO daily Physical Therapy started on 11/29/16 Status: Acute Disposition: Patient will be discharged home once medically stable and ABLE TO AMBULATE with wheelchair, walker or cane and instructed to follow up with the [facility] for a referral for Dr. Garcia to have outpatient chemotherapy. Due to patient's declining condition we will have palliative care speak to family next week, which are coming from [place]. DW Rafael Espinoza DO, PGY-1 <Abdiel Cai H - Last Filed: 12/13/16 14:57> Objective - Vital Signs/Intake and Output Vital Signs (last 24 hours): Temp Pulse Resp BP Pulse Ox 98.1 F 96 H 20 99/65 L 96 12/13/16 13:27 12/13/16 13:27 12/13/16 13:27 12/13/16 13:27 12/12/16 23:35 Intake and Output: 12/13/16 12/13/16 06:59 18:59 Intake Total 0 Output Total 985 400 Balance -985 -400 - Medications Medications: Current Medications Calcium/Vitamin D (Oyster Shell Calcium/Vitamin D 500 Mg-200 Iu) 1 tab PO DAILY [facility] Last Admin: 12/13/16 09:28 Dose: 1 tab Dextrose (Dextrose 50% Inj) 0 ml IV STAT PRN; Protocol PRN Reason: Hyglycemia Protocol Last Admin: 12/12/16 17:32 Dose: 50 ml Enoxaparin Sodium (Lovenox) 90 mg SC Q12 [facility] Last Admin: 12/13/16 09:28 Dose: 90 mg Gabapentin (Neurontin) 100 mg PO TID [facility] Last Admin: 12/13/16 13:36 Dose: 100 mg Hydroxyzine HCl (Atarax) 25 mg PO Q6 PRN PRN Reason: Anxiety Imipenem/Cilastatin Sodium 500 (mg/ Sodium Chloride) 100 mls @ 100 mls/hr IVPB Q6H [facility] Last Admin: 12/13/16 11:20 Dose: 100 mls/hr Ampicillin 2 gm/ Sodium (Chloride) 100 mls @ 50 mls/hr IVPB Q6H [facility] Last Admin: 12/13/16 14:30 Dose: Not Given Gentamicin Sulfate 80 mg/ (Sodium Chloride) 102 mls @ 100 mls/hr IVPB Q8H [facility] Last Admin: 12/13/16 09:29 Dose: 100 mls/hr Insulin Aspart (Novolog) 0 unit SC ACHS [facility] PRN Reason: Protocol Last Admin: 12/13/16 12:17 Dose: 2 unit Insulin Detemir (Levemir) 8 unit SC DAILY [facility] Last Admin: 12/13/16 09:35 Dose: 8 unit Loperamide HCl (Imodium) 2 mg PO QID PRN PRN Reason: Diarrhea Last Admin: 12/13/16 09:27 Dose: 2 mg Megestrol Acetate (Megace) 400 mg PO DAILY [facility] Last Admin: 12/13/16 09:28 Dose: 400 mg Midodrine (Proamatine) 2.5 mg PO TID [facility] Last Admin: 12/13/16 13:36 Dose: 2.5 mg Ondansetron HCl (Zofran Inj) 4 mg IVP Q6H PRN PRN Reason: Nausea/Vomiting Last Admin: 11/28/16 12:06 Dose: 4 mg Pantoprazole Sodium (Protonix Ec Tab) 40 mg PO DAILY [facility] Last Admin: 12/13/16 09:28 Dose: 40 mg Saccharomyces Boulardii (Florastor) 250 mg PO BID [facility] Last Admin: 12/13/16 09:28 Dose: 250 mg Sertraline HCl (Zoloft) 50 mg PO DAILY [facility] Last Admin: 12/13/16 09:27 Dose: 50 mg Zolpidem Tartrate (Ambien) 5 mg PO HS PRN PRN Reason: Insomnia Last Admin: 12/03/16 21:31 Dose: 5 mg - Labs Labs: 12/13/16 07:09 12/13/16 07:09 PT 15.0 SECONDS (9.7-12.2) H 12/03/16 07:08 INR 1.3 12/03/16 07:08 APTT 37 SECONDS (21-34) H 12/03/16 07:08 Attending/Attestation - Attestation I have personally seen and examined this patient.: Yes I have fully participated in the care of the patient.: Yes I have reviewed all pertinent clinical information, including history, physical exam and plan: Yes Notes (Text): 12/13/16 14:52 Medical attending: Patient was seen and examined by me as well. He was out of bed to chair. He looks very weak today, a blood transfusion was ordered after his Hgb decreased today. He remains on IV abx, and there is still a lot of drainage today in the cathter. The repeat cultures of blood and urine have been negative so far. However as previously reported the culture from the drain was positive for ESBL. He remains under contact isolation precaution at this time. Appettie is very very poor. thank you Abdiel Cai
--- NOTE | 2016-12-13 14:37 | CP.PCM.PN ---
Subjective - Date & Time of Evaluation Date of Evaluation: 12/13/16 Time of Evaluation: 10:00 - Subjective Subjective: PGY3 on heme/onc Dr. Garcia service: Pt seen and examined at bedside. No new complaint today. Resting comfortably on chair. Objective - Vital Signs/Intake and Output Vital Signs (last 24 hours): Temp Pulse Resp BP Pulse Ox 98.1 F 96 H 20 99/65 L 96 12/13/16 13:27 12/13/16 13:27 12/13/16 13:27 12/13/16 13:27 12/12/16 23:35 Intake and Output: 12/13/16 12/13/16 06:59 18:59 Intake Total 0 Output Total 985 400 Balance -985 -400 - Medications Medications: Current Medications Calcium/Vitamin D (Oyster Shell Calcium/Vitamin D 500 Mg-200 Iu) 1 tab PO DAILY [facility] Last Admin: 12/13/16 09:28 Dose: 1 tab Dextrose (Dextrose 50% Inj) 0 ml IV STAT PRN; Protocol PRN Reason: Hyglycemia Protocol Last Admin: 12/12/16 17:32 Dose: 50 ml Enoxaparin Sodium (Lovenox) 90 mg SC Q12 DOREEN Last Admin: 12/13/16 09:28 Dose: 90 mg Gabapentin (Neurontin) 100 mg PO TID DOREEN Last Admin: 12/13/16 13:36 Dose: 100 mg Hydroxyzine HCl (Atarax) 25 mg PO Q6 PRN PRN Reason: Anxiety Imipenem/Cilastatin Sodium 500 (mg/ Sodium Chloride) 100 mls @ 100 mls/hr IVPB Q6H [facility] Last Admin: 12/13/16 11:20 Dose: 100 mls/hr Ampicillin 2 gm/ Sodium (Chloride) 100 mls @ 50 mls/hr IVPB Q6H DOREEN Last Admin: 12/13/16 14:30 Dose: Not Given Gentamicin Sulfate 80 mg/ (Sodium Chloride) 102 mls @ 100 mls/hr IVPB Q8H [facility] Last Admin: 12/13/16 09:29 Dose: 100 mls/hr Insulin Aspart (Novolog) 0 unit SC ACHS DOREEN PRN Reason: Protocol Last Admin: 12/13/16 12:17 Dose: 2 unit Insulin Detemir (Levemir) 8 unit SC DAILY DOREEN Last Admin: 12/13/16 09:35 Dose: 8 unit Loperamide HCl (Imodium) 2 mg PO QID PRN PRN Reason: Diarrhea Last Admin: 12/13/16 09:27 Dose: 2 mg Megestrol Acetate (Megace) 400 mg PO DAILY [facility] Last Admin: 12/13/16 09:28 Dose: 400 mg Midodrine (Proamatine) 2.5 mg PO TID [facility] Last Admin: 12/13/16 13:36 Dose: 2.5 mg Ondansetron HCl (Zofran Inj) 4 mg IVP Q6H PRN PRN Reason: Nausea/Vomiting Last Admin: 11/28/16 12:06 Dose: 4 mg Pantoprazole Sodium (Protonix Ec Tab) 40 mg PO DAILY [facility] Last Admin: 12/13/16 09:28 Dose: 40 mg Saccharomyces Boulardii (Florastor) 250 mg PO BID [facility] Last Admin: 12/13/16 09:28 Dose: 250 mg Sertraline HCl (Zoloft) 50 mg PO DAILY [facility] Last Admin: 12/13/16 09:27 Dose: 50 mg Zolpidem Tartrate (Ambien) 5 mg PO HS PRN PRN Reason: Insomnia Last Admin: 12/03/16 21:31 Dose: 5 mg - Labs Labs: 12/13/16 07:09 12/13/16 07:09 PT 15.0 SECONDS (9.7-12.2) H 12/03/16 07:08 INR 1.3 12/03/16 07:08 APTT 37 SECONDS (21-34) H 12/03/16 07:08 - Constitutional Appears: Non-toxic, No Acute Distress - Head Exam Head Exam: NORMOCEPHALIC - Eye Exam Eye Exam: Normal appearance - Respiratory Exam Respiratory Exam: Clear to Ausculation Bilateral, NORMAL BREATHING PATTERN. absent: Wheezes - Cardiovascular Exam Cardiovascular Exam: REGULAR RHYTHM, +S1, +S2. absent: Gallop, Rubs - GI/Abdominal Exam GI & Abdominal Exam: Soft, Normal Bowel Sounds - Extremities Exam Extremities Exam: Pedal Edema - Neurological Exam Neurological Exam: Alert, Awake, Oriented x3 - Psychiatric Exam Psychiatric exam: Normal Mood Assessment and Plan - Assessment and Plan (Free Text) Assessment: (1) Colon cancer Assessment & Plan: with bladder extension for outpatient neoadjuvant chemotherapy Status: Acute (2) DVT (deep venous thrombosis) Assessment & Plan: Lovenox 90mg SC q12H. Status: Acute (3) Anemia Assessment & Plan: chronic disease Will transfuse 1U today, hgb 7.8 Continue monitoring Status: Acute (4) Pancreatic lesion Assessment & Plan: biopsy negative for malignancy Status: Acute (5) ESBL in blood Assessment & Plan: Management as per primary team. Status: Acute (6) VRE in urine Assessment & Plan: Management as per primary team. Status: Acute (7) Abscess Assessment & Plan: ESBL+, management as per primary team. Status: Acute
[2016-12-14 06:58] LABS: BASO % 0.2 % (0.0-2.0); EOS % 0.3 % (0.0-4.0); HEMATOCRIT 30.9 % (35.0-51.0); LYMPH # 1.1 K/uL (1.0-4.3); LYMPH % 10.9 % (20.0-40.0); MEAN CELL VOLUME 82.2 fL (80.0-94.0); MEAN CORPUSCULAR HEMOGLOBIN 27.4 pg (27.0-31.0); MEAN CORPUSCULAR HGB CONC 33.4 g/dL (33.0-37.0); MEAN PLATELET VOLUME 8.5 fL (7.2-11.7); MONO % 9.7 % (0.0-10.0); RED CELL DISTRIBUTION WIDTH 21.3 % (11.5-14.5); WHITE BLOOD COUNT 9.8 K/uL (4.8-10.8)
[2016-12-14 07:09] LABS: ALB/GLOB RATIO 0.6 (1.0-2.1); ALKALINE PHOSPHATASE 213 U/L (38-126); ALT/SGPT 27 U/L (21-72); AST/SGOT 18 U/L (17-59); BILIRUBIN,TOTAL 0.4 mg/dL (0.2-1.3); BLOOD UREA NITROGEN 12 mg/dL (9-20); CALCIUM 6.4 mg/dl (8.6-10.4); CARBON DIOXIDE 27 mmol/L (22-30); CHLORIDE 102 mmol/L (98-107); GFR AFRICAN-AMERICAN > 60; GLUCOSE,RANDOM 78 mg/dL (75-110); MAGNESIUM 1.8 mg/dL (1.6-2.3); PHOSPHOROUS 3.3 mg/dL (2.5-4.5); POTASSIUM 3.8 mmol/L (3.6-5.2); SODIUM 133 mmol/L (132-148); TOTAL PROTEIN 4.2 g/dL (6.3-8.3)
--- NOTE | 2016-12-14 07:10 | CP.PCM.PN ---
<Chris Domínguez - Last Filed: 12/14/16 07:08> Subjective - Date & Time of Evaluation Date of Evaluation: 12/14/16 Time of Evaluation: 07:08 - Subjective Subjective: PGY1 Medicine Note for Dr. Cai Patient seen and examined at bedside. Patient states that he feels like he is at baseline. Patient reports that he is having less and less diarrhea. Patient is tolerating his diet. Denies f/c, n/v, sob or cp. Objective - Vital Signs/Intake and Output Vital Signs (last 24 hours): Temp Pulse Resp BP Pulse Ox 98.2 F 98 H 20 147/90 97 12/13/16 23:25 12/13/16 23:25 12/13/16 23:25 12/13/16 23:25 12/13/16 23:25 Intake and Output: 12/14/16 12/14/16 06:59 18:59 Intake Total 1445 Output Total 1060 Balance 385 - Medications Medications: Current Medications Calcium/Vitamin D (Oyster Shell Calcium/Vitamin D 500 Mg-200 Iu) 1 tab PO DAILY [facility] Last Admin: 12/13/16 09:28 Dose: 1 tab Dextrose (Dextrose 50% Inj) 0 ml IV STAT PRN; Protocol PRN Reason: Hyglycemia Protocol Last Admin: 12/12/16 17:32 Dose: 50 ml Enoxaparin Sodium (Lovenox) 90 mg SC Q12 [facility] Last Admin: 12/13/16 21:18 Dose: 90 mg Gabapentin (Neurontin) 100 mg PO TID [facility] Last Admin: 12/13/16 17:13 Dose: 100 mg Hydroxyzine HCl (Atarax) 25 mg PO Q6 PRN PRN Reason: Anxiety Imipenem/Cilastatin Sodium 500 (mg/ Sodium Chloride) 100 mls @ 100 mls/hr IVPB Q6H [facility] Last Admin: 12/14/16 06:19 Dose: 100 mls/hr Gentamicin Sulfate 80 mg/ (Sodium Chloride) 102 mls @ 100 mls/hr IVPB Q8H [facility] Last Admin: 12/14/16 01:38 Dose: 100 mls/hr Insulin Aspart (Novolog) 0 unit SC ACHS DOREEN PRN Reason: Protocol Last Admin: 12/13/16 21:19 Dose: Not Given Loperamide HCl (Imodium) 2 mg PO QID PRN PRN Reason: Diarrhea Last Admin: 12/13/16 09:27 Dose: 2 mg Megestrol Acetate (Megace) 400 mg PO DAILY [facility] Last Admin: 12/13/16 09:28 Dose: 400 mg Midodrine (Proamatine) 2.5 mg PO TID [facility] Last Admin: 12/13/16 17:13 Dose: 2.5 mg Ondansetron HCl (Zofran Inj) 4 mg IVP Q6H PRN PRN Reason: Nausea/Vomiting Last Admin: 11/28/16 12:06 Dose: 4 mg Pantoprazole Sodium (Protonix Ec Tab) 40 mg PO DAILY [facility] Last Admin: 12/13/16 09:28 Dose: 40 mg Saccharomyces Boulardii (Florastor) 250 mg PO BID [facility] Last Admin: 12/13/16 17:13 Dose: 250 mg Sertraline HCl (Zoloft) 50 mg PO DAILY [facility] Last Admin: 12/13/16 09:27 Dose: 50 mg Zolpidem Tartrate (Ambien) 5 mg PO HS PRN PRN Reason: Insomnia Last Admin: 12/03/16 21:31 Dose: 5 mg - Labs Labs: 12/13/16 07:09 12/13/16 07:09 PT 15.0 SECONDS (9.7-12.2) H 12/03/16 07:08 INR 1.3 12/03/16 07:08 APTT 37 SECONDS (21-34) H 12/03/16 07:08 - Constitutional Appears: No Acute Distress, Chronically Ill - Head Exam Head Exam: ATRAUMATIC, NORMOCEPHALIC - Eye Exam Eye Exam: EOMI, Normal appearance - ENT Exam ENT Exam: Mucous Membranes Moist - Respiratory Exam Respiratory Exam: Decreased Breath Sounds, NORMAL BREATHING PATTERN. absent: Accessory Muscle Use, Respiratory Distress - Cardiovascular Exam Cardiovascular Exam: REGULAR RHYTHM, +S1, +S2 - GI/Abdominal Exam GI & Abdominal Exam: Soft, Normal Bowel Sounds - Extremities Exam Extremities Exam: Normal Inspection - Neurological Exam Neurological Exam: Alert, Awake, Oriented x3 - Psychiatric Exam Psychiatric exam: Normal Affect, Normal Mood - Skin Skin Exam: Dry, Normal Color, Warm Assessment and Plan - Assessment and Plan (Free Text) Plan: Anemia of chronic disease Assessment & Plan: Hemoglobin is stable today at 10.3 from 7.8. Patient was transfused 2 units PRBCs on 8/11/17. Continue to monitor. S/P transfusion total 2 units PRBCs 12/06 [employer] LIN[employer] HELPER was called on patient 12/04/16 due hypotension. Lasix was discontinued. He was given a fluid bolus, albumin and continued with the 1 unit of PRBCs. Patient was given albumin again today. And will be transfused another unit of PRBCs due to hemoglobin of 7.8. H/H was 7.7/27.4 - Consent retrieved- patient will be transfused 1 unit of PRBCs 11/26: After discussing with Heme/Onc Dr Garcia, since Ferritin is normal ferrlecit will not provide much benefit, will discontinue 11/25: Will start Ferrlecit 125mg iv daily after surgical procedure 11/25: Hgb stable at 8.6. Status: Acute Bacteremia Assessment & Plan: Continues to be tachycardic, normotensive. Afebrile since 12/06/16 REPEAT blood and urine cultures 12/10/16 negative x 3 days 12/06/16 Blood culture + ESBL 12/06/16 Urine Culture + VRE CT abd/pelvis 12/07 showed enlargement of pelvic abscess, will consult IR for possible draining of abscess. - On Primaxin 400mg IVPB Q6 hours (started 12/06) - Start Ampicillin 2grams IVPB Q6 hours (started 12/08) - Was given 2 doses of Gentamicin on 12/07 and 12/06 12/10: IR consulted for pelvic abscess drainage. Mass has increased from 8.4 x 6.9 x x 6.7 (11/16) to 12 x 15 x 8.5 (12/07) Afebrile, no leukocytosis, bandemia at 4 today. Repeated CXR which is unchanged from previous on 12/06, bilateral pleural effusions R>L are stable. 12/06: Tachycardia, hypotensive, with bandemia at 27. Pt was jesus cultured. DC Rocephin. Was given a stat dose of Gentamycin and restarted on Primaxin. Possible source PICC line or RIJ Portacath. Continue on Ceftriaxone 2 gm IV Q24H for 14 days starting 11/29/16. Leukocytosis resolved. 11/30/17: As per ID, Repeat blood culture was negative, Primaxin and Flagyl was discontinued (11/29/16). Ceftriaxone 2 gm IV Q24H for 14 days starting 11/29/16 11/29/16: E. coli in blood culture on 11/15/16. Repeat blood culture on 11/23/16 was finalized as negative. I will speak with ID Dr. Burns concerning how much longer we need to continue the Primaxin and Flagyl 11/27: wbc trending down. afebrile. will continue primaxin and flagyl and monitor bands and wbc. Blood cultures negative after 3 days. 11/26: Patient in ICU for monitoring post OR, Bands 12 today, will monitor. 11/25: Blood cultures are negative after [address] Burns, con't tx for minimum of 14 days; Primaxin and Flagyl both started on 11/17. 11/19: HIV screen negative, Hep panel negative. Bands 26 today. 11/18: HIV 1&2 antibodies, Hep panel were ordered today. ID has been consulted, Dr Burns, we will follow his recommendations. 11/17: Changed to IV Primaxin 500mg IV Q6 Follow cultures. Currently blood pressure and HR stable. Nonfebrile. Continue with the IVF, monitor west outputs Status: Acute Pelvic Abscess Assessment & Plan: 12/10: IR consulted for pelvic abscess drainage . Mass has increased from 8.4 x 6.9 x x 6.7 (11/16) to 12 x 15 x 8.5 (12/07). CRYS drain in place. Continues to drain. Status: Acute VRE + Urine Assessment & Plan: REPEAT urine cultures 12/10/16 negative x 3 days Urine culture from west 12/06 shows UTI +VRE Dr. Burns ID informed Start Ampicillin 2 grams IVPB Q6 hours (started 12/08), On Primaxin 400mg IVPB Q6 hours (started 12/06) Contact precautions CHANGE OF WEST 12/10/16 Status: Acute Pleural Effusions Assessment & Plan: Repeated CXR 12/10/16 which is unchanged from previous on 12/06, bilateral pleural effusions R>L are stable. Repeat CXR (12/06) shows: Decreased bilateral pleural effusion. Probable linear atelectasis at left base. 12/07 CXR 12/02 compared to 11/15 --> B/L pleural effusions R>L. Was placed on lasix 20mg IVP Q12. Pulmonology consulted, Dr. Mccormick - patient is for thoracentesis. IR reported not enough fluid for thoracentesis. 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 12/06 C diff negative - Immodium added Stool culture negative for salmonella, shigella, campylobacter Stool leukocytes negative Ova and parasites not seen S/P RIJ Portacath insertion (12/03), s/p exploratory laparotomy (11/26) POD#10, w/ findings of unresectable rectosigmoid mass. 12/02/16 POD #6; Surgery will remove abdominal incision jody on POD #10. Surgery reconsulted for portacath placement. NPO past midnight tonight for OR tomorrow morning. 11/30/16: POD # 4: As per conversation with Dr. Lake Harris on 11/29/16, patient has decided to be DNR/DNI 11/29/16: POD #3. Patient is still undecided concerning further management. If he decides to proceed then he will need a Chemo Port placed. He has signed DNR/ DNI. I discussed patient's decision concerning further treatment with Dr. Willow Garcia on the night of 11/28/1611/28: s/p exploratory laparotomy POD2, w/ findings of unresectable rectosigmoid mass. Patient stated today he does not want the chemoport, he said he wants time to think about it. Patient appears tired and he does not want to make sudden decisions. No morning labs, blood draw was difficult this morning due to poor vein access. 11/27: s/p exploratory laparotomy POD1, w/ findings of unresectable rectosigmoid mass. Per surgery note, patient will need a portacath placement, time and date to be determined. Will stop heparin drip (tx for RUE deep vein thrombosis) 4 hours prior to portacath placement procedure. 11/26: Per surgeon/president, the surgery today to resect patient's sigmoid mass was halted after it was determined the mass was too large/firm for removal. The patient will be treated with a neoadjuvant with hopes of shrinking the size of the tumor with possible surgery for removal at a later date. Patient was sent to ICU post OR for monitoring. 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 Due to lovenox longer half life, therapeutic lovenox was discontinued and heparin was started. Heparin 8000u iv bolus was given and heparin drip was started at 18u/kg/hr. This drip will be stopped at exactly 5am, 4 hours before surgery. 11/21: Pt s/p cystoscopy today. Patient found to have invasion to dome of urinary bladder. Surgery to plan for surgery some time next week 11/21: Per GI, Abdominal U/S obtained to rule out SV thrombosis given presence of gastroesopahgeal varices seen on endoscopic examination -> Abdominal U/S: 1. Hepatocellular disease without focal hepatic mass. 2. Patent portal venous system including splenic vein. 3. Cholelithiasis. No sonographic evidence of acute cholecystitis. 4. Cystic mass in the head of the pancreas. Remainder the pancreas is not visualized. 11/21: PICC placed today by IR DR Armando. 11/20: s/p upper EUS: "LA grade C erosive esophagitis. 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 75mm x 65mm psedocyst seen in pancreatic body, fine needle aspiration for fluid performed. Varices were visualized endosonographically in fundus of stomach". Will f/u cystology and CEA levels. 11/20: s/p venous duplex of upper extremities: "right: acute thrombosis of right subclavian, axillary and brachial veins with severe reduction of venous return. left: acute thrombosis of left cephatlic vein with severe reduction of venous return". Therapeutic lovenox started -> 90mg q12 sc. 11/20: s/p venous duplex of lower extremeties: negative 11/19: GI to perform EUS tomorrow. Advanced diet to liquid - will advance as tolerated. B/l upper and lower extremity duplex scans were ordered today. 11/18: Patient is s/p EGD/Colonoscopy. A 10cm partially obstructing sigmoid mass was seen and biopsied. Multiple polyps were seen and resected. Heme/Onc, Dr Garcia has been consulted, we will follow up with his recommendations. CT chest abdomen and pelvis findings as noted: suspected sigmoid and proximal rectum mass lesion without evidence of high grade bowel obstruction; suspected abscess formation; cystic mass lesion noted at pancreas with surrounding fat stranding of the pancreatic tail; large gallstones without evidence of acute cholecystitis GI consult (Dr. Srivastava)---> Help appreciated General Surgery Consult (Dr. Amin)----> Help appreciated Urology Consult (Dr. Jon)----> Help appreciated Status: Acute Acute deep vein thrombosis (DVT) of right upper extremity Assessment & Plan: Continue therapeutic Lovenox at 90 mg SC Q12H 11/29: Heparin Drip was discontinued on 11/28/16 as PTT could not be measured secondary to inability to draw blood from edematous arms and could not draw blood from left arm PICC for the PTT level due to the Heprin Drip being infused through the PICC. Therefore patient was restarted on therapeutic Lovenox at 90 mg SC Q12H 11/27: Heparin drip restarted at 18u/kg/hr. Heparin bolus 8,000u given prior to start of drip. 11/26: Per surgery, plan is to restart anticoagulant tomorrow morning Status: Acute Uncontrolled diabetes mellitus Assessment & Plan: Levemir 15 units SC HS---> DC due to continue hypoglycemic events and decreased appetite. Recent HgbA1C: 11.5 (11/20/16) Accuchecks Aspart ISS - low Status: Chronic Esophageal abrasion Assessment & Plan: 11/18: Per endoscopy report * Ulcerated mucosa in the lower third of the esophagus was seen and biopsied. Pathology negative for h pylori. * Patient is on Protonix 40 mg PO BID. Status: Acute Pancreatic lesion Assessment & Plan: GI outpatient follow-up 11/26: Pancreatic cyst FNA negative for malignant cells per cytology report. 11/25: Per carpenter/labor, EUS performed on 11/20 sampled pancreatic cyst fluid with diagnostic studies ordered for ptf amylase and ptfCEA only 11/20: Upper EUS performed today: "75mm x 65mm psedocyst seen in pancreatic body , fine needle aspiration for fluid performed 11/18: CT abd/pelvis shows cystic mass lesion at pancreas with fat stranding of pacreatic tail. Lipase level and lipid panel was ordered today. 11/17: CA 19-9 wnl Status: Acute Cholelithiasis Assessment & Plan: GI outpatient follow-up 11/18: CT abd/pelvis shows large gallstones without evidence of acute cholecystitis. Denies abd pain Status: Acute Abnormal cardiovascular stress test Assessment & Plan: Cardiology outpatient follow-up 11/25: Nuclear Stress Test: Defect in mid-anteroseptal wall, defect in basal inferoseptal wall, fixed apical defect old [place], small defect inferior wall 11/25: ECHO: left ventricle systolic function is normal. EF is 50-55%. Status: Acute Major Depressive Disorder Assessment & Plan: Dr. Loredo consulted, help appreciated Zoloft 50mg PO daily Psychoeducation Status: Acute Prophylactic measure Assessment & Plan: Protonix 40 mg PO BID Lovenox 90mg IV q12H Florastor PO BID Ambien 5 mg PO HS Megace started 100mg PO daily Physical Therapy started on 11/29/16 Status: Acute Disposition: Patient will be discharged home once medically stable and ABLE TO AMBULATE with wheelchair, walker or cane and instructed to follow up with the [facility] for a referral for Dr. Garcia to have outpatient chemotherapy. Due to patient's declining condition we will have palliative care speak to family next week, which are coming from [place]. Chris Domínguez PGY1 <Abdiel Cai H - Last Filed: 12/14/16 09:26> Objective - Vital Signs/Intake and Output Vital Signs (last 24 hours): Temp Pulse Resp BP Pulse Ox 98.8 F 97 H 20 104/68 99 12/14/16 08:39 12/14/16 08:39 12/14/16 08:39 12/14/16 08:39 12/14/16 08:39 Intake and Output: 12/14/16 12/14/16 06:59 18:59 Intake Total 1445 Output Total 1060 Balance 385 - Medications Medications: Current Medications Calcium/Vitamin D (Oyster Shell Calcium/Vitamin D 500 Mg-200 Iu) 1 tab PO DAILY [facility] Last Admin: 12/13/16 09:28 Dose: 1 tab Dextrose (Dextrose 50% Inj) 0 ml IV STAT PRN; Protocol PRN Reason: Hyglycemia Protocol Last Admin: 12/12/16 17:32 Dose: 50 ml Enoxaparin Sodium (Lovenox) 90 mg SC Q12 [facility] Last Admin: 12/13/16 21:18 Dose: 90 mg Gabapentin (Neurontin) 100 mg PO TID [facility] Last Admin: 12/13/16 17:13 Dose: 100 mg Hydroxyzine HCl (Atarax) 25 mg PO Q6 PRN PRN Reason: Anxiety Imipenem/Cilastatin Sodium 500 (mg/ Sodium Chloride) 100 mls @ 100 mls/hr IVPB Q6H [facility] Last Admin: 12/14/16 06:19 Dose: 100 mls/hr Gentamicin Sulfate 80 mg/ (Sodium Chloride) 102 mls @ 100 mls/hr IVPB Q8H [facility] Last Admin: 12/14/16 01:38 Dose: 100 mls/hr Insulin Aspart (Novolog) 0 unit SC ACHS [facility] PRN Reason: Protocol Last Admin: 12/14/16 07:23 Dose: Not Given Loperamide HCl (Imodium) 2 mg PO QID PRN PRN Reason: Diarrhea Last Admin: 12/13/16 09:27 Dose: 2 mg Megestrol Acetate (Megace) 400 mg PO DAILY [facility] Last Admin: 12/13/16 09:28 Dose: 400 mg Midodrine (Proamatine) 2.5 mg PO TID [facility] Last Admin: 12/13/16 17:13 Dose: 2.5 mg Ondansetron HCl (Zofran Inj) 4 mg IVP Q6H PRN PRN Reason: Nausea/Vomiting Last Admin: 11/28/16 12:06 Dose: 4 mg Pantoprazole Sodium (Protonix Ec Tab) 40 mg PO DAILY [facility] Last Admin: 12/13/16 09:28 Dose: 40 mg Saccharomyces Boulardii (Florastor) 250 mg PO BID [facility] Last Admin: 12/13/16 17:13 Dose: 250 mg Sertraline HCl (Zoloft) 50 mg PO DAILY [facility] Last Admin: 12/13/16 09:27 Dose: 50 mg Zolpidem Tartrate (Ambien) 5 mg PO HS PRN PRN Reason: Insomnia Last Admin: 12/03/16 21:31 Dose: 5 mg - Labs Labs: 12/14/16 06:46 12/14/16 06:46 PT 15.0 SECONDS (9.7-12.2) H 12/03/16 07:08 INR 1.3 12/03/16 07:08 APTT 37 SECONDS (21-34) H 12/03/16 07:08 Assessment and Plan - Assessment and Plan (Free Text) Assessment: Medical attending: Patient was seen and examined by me. Agree with the above note by the resident. Today recheck cultures of blood, urine, and also CXRAY. He remains on IV abx Gentamicin and also IV Primaxin. The most recent positive cultures are ESBL + E coli in the blood as well as the drain. Still having diarrhea. Stool studies have been negative so far His appettie has been very poor. Insulin has been held temporarily due to reapeatedly low blood glucoses. Overall prognosis seems poor at this time. He is very weak, no appetite. He has difficulty walking. Bed bound - he already has a DVT and is already on lovenox BID thank you Abdiel Cai
[2016-12-14] MEDS: (Novolog) Insulin Aspart, Recombinant 100 u/ml 10 ml vial SC SCH ×4 (07:23→22:00)
[2016-12-14] MEDS: Enoxaparin 100 mg Syringe SC SCH ×2 (09:55→22:58)
[2016-12-14] MEDS: Megestrol Acetate 40 mg/ml Cup PO SCH (09:57)
[2016-12-14] MEDS: Pantoprazole 40 mg EC Tab PO SCH (09:59)
[2016-12-14] MEDS: Saccharomyces Boulardi 250 mg Cap PO SCH ×2 (09:59→17:56)
[2016-12-14] MEDS: Calcium-Vit D 500 mg-200 Units Tab UD PO SCH (09:59)
[2016-12-15 06:27] LABS: BASO % 0.1 % (0.0-2.0); EOS % 0.1 % (0.0-4.0); HEMATOCRIT 33.1 % (35.0-51.0); LYMPH # 1.2 K/uL (1.0-4.3); LYMPH % 11.6 % (20.0-40.0); MEAN CELL VOLUME 82.9 fL (80.0-94.0); MEAN CORPUSCULAR HEMOGLOBIN 27.1 pg (27.0-31.0); MEAN CORPUSCULAR HGB CONC 32.7 g/dL (33.0-37.0); MEAN PLATELET VOLUME 8.8 fL (7.2-11.7); MONO % 9.8 % (0.0-10.0); RED CELL DISTRIBUTION WIDTH 21.2 % (11.5-14.5); WHITE BLOOD COUNT 10.7 K/uL (4.8-10.8)
[2016-12-15 06:35] LABS: CHLORIDE 101 mmol/L (98-107)
[2016-12-15 06:36] LABS: POTASSIUM 3.8 mmol/L (3.6-5.2); SODIUM 133 mmol/L (132-148)
[2016-12-15 06:38] LABS: GFR AFRICAN-AMERICAN > 60
[2016-12-15 06:39] LABS: ALB/GLOB RATIO 0.6 (1.0-2.1); ALKALINE PHOSPHATASE 213 U/L (38-126); ALT/SGPT 29 U/L (21-72); AST/SGOT 13 U/L (17-59); BILIRUBIN,TOTAL 0.8 mg/dL (0.2-1.3); BLOOD UREA NITROGEN 11 mg/dL (9-20); CARBON DIOXIDE 23 mmol/L (22-30); GLUCOSE,RANDOM 173 mg/dL (75-110); PHOSPHOROUS 3.6 mg/dL (2.5-4.5); TOTAL PROTEIN 4.6 g/dL (6.3-8.3)
[2016-12-15 06:40] LABS: CALCIUM 6.8 mg/dl (8.6-10.4); MAGNESIUM 1.6 mg/dL (1.6-2.3)
--- NOTE | 2016-12-15 07:56 | CP.PCM.PN ---
Addendum entered and electronically signed by Simin Hall DO 12/15/16 08:15 : Restarted Gentamycin @ Q12H for E.coli that grew from pelvic abscess. Original Note: <Chris Domínguez - Last Filed: 12/15/16 07:54> Subjective - Date & Time of Evaluation Date of Evaluation: 12/15/16 Time of Evaluation: 07:54 - Subjective Subjective: PGY1 Medicine Note for Dr. Cai Patient seen and examined at bedside. Patient states that he feels ok. Patient reports that his diarrhea is improving. Patient is tolerating his diet. Denies f /c, n/v, sob or cp. Objective - Vital Signs/Intake and Output Vital Signs (last 24 hours): Temp Pulse Resp BP Pulse Ox 98.7 F 107 H 20 115/76 97 12/14/16 23:20 12/14/16 23:20 12/14/16 23:20 12/14/16 23:20 12/14/16 23:20 Intake and Output: 12/15/16 12/15/16 06:59 18:59 Intake Total 200 Output Total 855 Balance -655 - Medications Medications: Current Medications Calcium/Vitamin D (Oyster Shell Calcium/Vitamin D 500 Mg-200 Iu) 1 tab PO DAILY [facility] Last Admin: 12/14/16 09:59 Dose: 1 tab Dextrose (Dextrose 50% Inj) 0 ml IV STAT PRN; Protocol PRN Reason: Hyglycemia Protocol Last Admin: 12/12/16 17:32 Dose: 50 ml Enoxaparin Sodium (Lovenox) 90 mg SC Q12 [facility] Last Admin: 12/14/16 22:58 Dose: 90 mg Gabapentin (Neurontin) 100 mg PO TID [facility] Last Admin: 12/14/16 17:56 Dose: 100 mg Hydroxyzine HCl (Atarax) 25 mg PO Q6 PRN PRN Reason: Anxiety Imipenem/Cilastatin Sodium 500 (mg/ Sodium Chloride) 100 mls @ 100 mls/hr IVPB Q6H [facility] Last Admin: 12/15/16 05:41 Dose: 100 mls/hr Gentamicin Sulfate 80 mg/ (Sodium Chloride) 102 mls @ 100 mls/hr IVPB Q8H [facility] Last Admin: 12/14/16 09:49 Dose: Not Given Insulin Aspart (Novolog) 0 unit SC ACHS [facility] PRN Reason: Protocol Last Admin: 12/14/16 18:01 Dose: Not Given Loperamide HCl (Imodium) 2 mg PO QID PRN PRN Reason: Diarrhea Last Admin: 12/13/16 09:27 Dose: 2 mg Megestrol Acetate (Megace) 400 mg PO DAILY [facility] Last Admin: 12/14/16 09:57 Dose: 400 mg Midodrine (Proamatine) 2.5 mg PO TID [facility] Last Admin: 12/14/16 17:56 Dose: 2.5 mg Ondansetron HCl (Zofran Inj) 4 mg IVP Q6H PRN PRN Reason: Nausea/Vomiting Last Admin: 11/28/16 12:06 Dose: 4 mg Pantoprazole Sodium (Protonix Ec Tab) 40 mg PO DAILY [facility] Last Admin: 12/14/16 09:59 Dose: 40 mg Saccharomyces Boulardii (Florastor) 250 mg PO BID [facility] Last Admin: 12/14/16 17:56 Dose: 250 mg Sertraline HCl (Zoloft) 50 mg PO DAILY [facility] Last Admin: 12/14/16 09:59 Dose: 50 mg Zolpidem Tartrate (Ambien) 5 mg PO HS PRN PRN Reason: Insomnia Last Admin: 12/03/16 21:31 Dose: 5 mg - Labs Labs: 12/15/16 06:23 12/15/16 06:23 PT 15.0 SECONDS (9.7-12.2) H 12/03/16 07:08 INR 1.3 12/03/16 07:08 APTT 37 SECONDS (21-34) H 12/03/16 07:08 - Constitutional Appears: No Acute Distress, Chronically Ill - Head Exam Head Exam: ATRAUMATIC, NORMOCEPHALIC - Eye Exam Eye Exam: Normal appearance - ENT Exam ENT Exam: Mucous Membranes Moist - Respiratory Exam Respiratory Exam: NORMAL BREATHING PATTERN. absent: Accessory Muscle Use, Respiratory Distress - Cardiovascular Exam Cardiovascular Exam: REGULAR RHYTHM, +S1 - GI/Abdominal Exam GI & Abdominal Exam: Soft, Tenderness, Normal Bowel Sounds. absent: Distended - Neurological Exam Neurological Exam: Alert, Awake, Oriented x3 - Psychiatric Exam Psychiatric exam: Normal Affect, Normal Mood - Skin Skin Exam: Dry, Normal Color, Warm Assessment and Plan - Assessment and Plan (Free Text) Assessment: Anemia of chronic disease Assessment & Plan: Hemoglobin is stable today at 10.8 from 10.3. Patient was transfused 2 units PRBCs on 12/13/16. Continue to monitor. S/P transfusion total 2 units PRBCs 12/06 CARTON MAKING MACHINIST was called on patient 12/04/16 due hypotension. Lasix was discontinued. He was given a fluid bolus, albumin and continued with the 1 unit of PRBCs. Patient was given albumin again today. And will be transfused another unit of PRBCs due to hemoglobin of 7.8. H/H was 7.7/27.4 - Consent retrieved- patient will be transfused 1 unit of PRBCs 11/26: After discussing with Heme/Onc Dr Garcia, since Ferritin is normal ferrlecit will not provide much benefit, will discontinue 11/25: Will start Ferrlecit 125mg iv daily after surgical procedure 11/25: Hgb stable at 8.6. Status: Acute Bacteremia Assessment & Plan: Continues to be tachycardic, normotensive. Afebrile since 12/06/16 REPEAT blood and urine cultures 12/10/16 negative x 3 days 12/06/16 Blood culture + ESBL 12/06/16 Urine Culture + VRE CT abd/pelvis 12/07 showed enlargement of pelvic abscess, will consult IR for possible draining of abscess. - On Primaxin 400mg IVPB Q6 hours (started 12/06) - Start Ampicillin 2grams IVPB Q6 hours (started 12/08) - Was given 2 doses of Gentamicin on 12/07 and 12/06 12/10: IR consulted for pelvic abscess drainage. Mass has increased from 8.4 x 6.9 x x 6.7 (11/16) to 12 x 15 x 8.5 (12/07) Afebrile, no leukocytosis, bandemia at 4 today. Repeated CXR which is unchanged from previous on 12/06, bilateral pleural effusions R>L are stable. 12/06: Tachycardia, hypotensive, with bandemia at 27. Pt was jesus cultured. DC Rocephin. Was given a stat dose of Gentamycin and restarted on Primaxin. Possible source PICC line or RIJ Portacath. Continue on Ceftriaxone 2 gm IV Q24H for 14 days starting 11/29/16. Leukocytosis resolved. 11/30/17: As per ID, Repeat blood culture was negative, Primaxin and Flagyl was discontinued (11/29/16). Ceftriaxone 2 gm IV Q24H for 14 days starting 11/29/16 11/29/16: E. coli in blood culture on 11/15/16. Repeat blood culture on 11/23/16 was finalized as negative. I will speak with ID Dr. Burns concerning how much longer we need to continue the Primaxin and Flagyl 11/27: wbc trending down. afebrile. will continue primaxin and flagyl and monitor bands and wbc. Blood cultures negative after 3 days. 11/26: Patient in ICU for monitoring post OR, Bands 12 today, will monitor. 11/25: Blood cultures are negative after [address] Burns, con't tx for minimum of 14 days; Primaxin and Flagyl both started on 11/17. 11/19: HIV screen negative, Hep panel negative. Bands 26 today. 11/18: HIV 1&2 antibodies, Hep panel were ordered today. ID has been consulted, Dr Burns, we will follow his recommendations. 11/17: Changed to IV Primaxin 500mg IV Q6 Follow cultures. Currently blood pressure and HR stable. Nonfebrile. Continue with the IVF, monitor west outputs Status: Acute Pelvic Abscess Assessment & Plan: 12/10: IR consulted for pelvic abscess drainage . Mass has increased from 8.4 x 6.9 x x 6.7 (11/16) to 12 x 15 x 8.5 (12/07). CRYS drain in place. Continues to drain. Status: Acute VRE + Urine Assessment & Plan: REPEAT urine cultures 12/10/16 negative x 3 days Urine culture from west 12/06 shows UTI +VRE Dr. Burns ID informed Start Ampicillin 2 grams IVPB Q6 hours (started 12/08), On Primaxin 400mg IVPB Q6 hours (started 12/06) Contact precautions CHANGE OF WEST 12/10/16 Status: Acute Pleural Effusions Assessment & Plan: Repeated CXR 12/10/16 which is unchanged from previous on 12/06, bilateral pleural effusions R>L are stable. Repeat CXR (12/06) shows: Decreased bilateral pleural effusion. Probable linear atelectasis at left base. 12/07 CXR 12/02 compared to 11/15 --> B/L pleural effusions R>L. Was placed on lasix 20mg IVP Q12. Pulmonology consulted, Dr. Mccormick - patient is for thoracentesis. IR reported not enough fluid for thoracentesis. 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 12/06 C diff negative - Immodium added Stool culture negative for salmonella, shigella, campylobacter Stool leukocytes negative Ova and parasites not seen S/P RIJ Portacath insertion (12/03), s/p exploratory laparotomy (11/26) POD#10, w/ findings of unresectable rectosigmoid mass. 12/02/16 POD #6; Surgery will remove abdominal incision jody on POD #10. Surgery reconsulted for portacath placement. NPO past midnight tonight for OR tomorrow morning. 11/30/16: POD # 4: As per conversation with Dr. Lake Harris on 11/29/16, patient has decided to be DNR/DNI 11/29/16: POD #3. Patient is still undecided concerning further management. If he decides to proceed then he will need a Chemo Port placed. He has signed DNR/ DNI. I discussed patient's decision concerning further treatment with Dr. Willow Garcia on the night of 11/28/1611/28: s/p exploratory laparotomy POD2, w/ findings of unresectable rectosigmoid mass. Patient stated today he does not want the chemoport, he said he wants time to think about it. Patient appears tired and he does not want to make sudden decisions. No morning labs, blood draw was difficult this morning due to poor vein access. 11/27: s/p exploratory laparotomy POD1, w/ findings of unresectable rectosigmoid mass. Per surgery note, patient will need a portacath placement, time and date to be determined. Will stop heparin drip (tx for RUE deep vein thrombosis) 4 hours prior to portacath placement procedure. 11/26: Per ophthalmology surgical technician, the surgery today to resect patient's sigmoid mass was halted after it was determined the mass was too large/firm for removal. The patient will be treated with a neoadjuvant with hopes of shrinking the size of the tumor with possible surgery for removal at a later date. Patient was sent to ICU post OR for monitoring. 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 Due to lovenox longer half life, therapeutic lovenox was discontinued and heparin was started. Heparin 8000u iv bolus was given and heparin drip was started at 18u/kg/hr. This drip will be stopped at exactly 5am, 4 hours before surgery. 11/21: Pt s/p cystoscopy today. Patient found to have invasion to dome of urinary bladder. Surgery to plan for surgery some time next week 11/21: Per GI, Abdominal U/S obtained to rule out SV thrombosis given presence of gastroesopahgeal varices seen on endoscopic examination -> Abdominal U/S: 1. Hepatocellular disease without focal hepatic mass. 2. Patent portal venous system including splenic vein. 3. Cholelithiasis. No sonographic evidence of acute cholecystitis. 4. Cystic mass in the head of the pancreas. Remainder the pancreas is not visualized. 11/21: PICC placed today by IR DR Armando. 11/20: s/p upper EUS: "LA grade C erosive esophagitis. 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 75mm x 65mm psedocyst seen in pancreatic body, fine needle aspiration for fluid performed. Varices were visualized endosonographically in fundus of stomach". Will f/u cystology and CEA levels. 11/20: s/p venous duplex of upper extremities: "right: acute thrombosis of right subclavian, axillary and brachial veins with severe reduction of venous return. left: acute thrombosis of left cephatlic vein with severe reduction of venous return". Therapeutic lovenox started -> 90mg q12 sc. 11/20: s/p venous duplex of lower extremeties: negative 11/19: GI to perform EUS tomorrow. Advanced diet to liquid - will advance as tolerated. B/l upper and lower extremity duplex scans were ordered today. 11/18: Patient is s/p EGD/Colonoscopy. A 10cm partially obstructing sigmoid mass was seen and biopsied. Multiple polyps were seen and resected. Heme/Onc, Dr Garcia has been consulted, we will follow up with his recommendations. CT chest abdomen and pelvis findings as noted: suspected sigmoid and proximal rectum mass lesion without evidence of high grade bowel obstruction; suspected abscess formation; cystic mass lesion noted at pancreas with surrounding fat stranding of the pancreatic tail; large gallstones without evidence of acute cholecystitis GI consult (Dr. Srivastava)---> Help appreciated General Surgery Consult (Dr. Amin)----> Help appreciated Urology Consult (Dr. Jon)----> Help appreciated Status: Acute Acute deep vein thrombosis (DVT) of right upper extremity Assessment & Plan: Continue therapeutic Lovenox at 90 mg SC Q12H 11/29: Heparin Drip was discontinued on 11/28/16 as PTT could not be measured secondary to inability to draw blood from edematous arms and could not draw blood from left arm PICC for the PTT level due to the Heprin Drip being infused through the PICC. Therefore patient was restarted on therapeutic Lovenox at 90 mg SC Q12H 11/27: Heparin drip restarted at 18u/kg/hr. Heparin bolus 8,000u given prior to start of drip. 11/26: Per surgery, plan is to restart anticoagulant tomorrow morning Status: Acute Uncontrolled diabetes mellitus Assessment & Plan: Levemir 15 units SC HS---> DC due to continue hypoglycemic events and decreased appetite. Recent HgbA1C: 11.5 (11/20/16) Accuchecks Aspart ISS - low Status: Chronic Esophageal abrasion Assessment & Plan: 11/18: Per endoscopy report * Ulcerated mucosa in the lower third of the esophagus was seen and biopsied. Pathology negative for h pylori. * Patient is on Protonix 40 mg PO BID. Status: Acute Pancreatic lesion Assessment & Plan: GI outpatient follow-up 11/26: Pancreatic cyst FNA negative for malignant cells per cytology report. 11/25: Per flower shop laborer/designer, EUS performed on 11/20 sampled pancreatic cyst fluid with diagnostic studies ordered for ptf amylase and ptfCEA only 11/20: Upper EUS performed today: "75mm x 65mm psedocyst seen in pancreatic body , fine needle aspiration for fluid performed 11/18: CT abd/pelvis shows cystic mass lesion at pancreas with fat stranding of pacreatic tail. Lipase level and lipid panel was ordered today. 11/17: CA 19-9 wnl Status: Acute Cholelithiasis Assessment & Plan: GI outpatient follow-up 11/18: CT abd/pelvis shows large gallstones without evidence of acute cholecystitis. Denies abd pain Status: Acute Abnormal cardiovascular stress test Assessment & Plan: Cardiology outpatient follow-up 11/25: Nuclear Stress Test: Defect in mid-anteroseptal wall, defect in basal inferoseptal wall, fixed apical defect old [place], small defect inferior wall 11/25: ECHO: left ventricle systolic function is normal. EF is 50-55%. Status: Acute Major Depressive Disorder Assessment & Plan: Dr. Loredo consulted, help appreciated Zoloft 50mg PO daily Psychoeducation Status: Acute Prophylactic measure Assessment & Plan: Protonix 40 mg PO BID Lovenox 90mg IV q12H Florastor PO BID Ambien 5 mg PO HS Megace started 100mg PO daily Physical Therapy started on 11/29/16 Status: Acute Disposition: Patient will be discharged home once medically stable and ABLE TO AMBULATE with wheelchair, walker or cane and instructed to follow up with the [facility] for a referral for Dr. Garcia to have outpatient chemotherapy. Due to patient's declining condition we will have palliative care speak to family next week, which are coming from [place]. Chris Domínguez PGY1 <Abdiel Cai H - Last Filed: 12/15/16 09:12> Objective - Vital Signs/Intake and Output Vital Signs (last 24 hours): Temp Pulse Resp BP Pulse Ox 98.7 F 107 H 20 115/76 97 12/14/16 23:20 12/14/16 23:20 12/14/16 23:20 12/14/16 23:20 12/14/16 23:20 Intake and Output: 12/15/16 12/15/16 06:59 18:59 Intake Total 200 Output Total 855 Balance -655 - Medications Medications: Current Medications Calcium/Vitamin D (Oyster Shell Calcium/Vitamin D 500 Mg-200 Iu) 1 tab PO DAILY [facility] Last Admin: 12/14/16 09:59 Dose: 1 tab Dextrose (Dextrose 50% Inj) 0 ml IV STAT PRN; Protocol PRN Reason: Hyglycemia Protocol Last Admin: 12/12/16 17:32 Dose: 50 ml Enoxaparin Sodium (Lovenox) 90 mg SC Q12 [facility] Last Admin: 12/14/16 22:58 Dose: 90 mg Gabapentin (Neurontin) 100 mg PO TID [facility] Last Admin: 12/14/16 17:56 Dose: 100 mg Hydroxyzine HCl (Atarax) 25 mg PO Q6 PRN PRN Reason: Anxiety Imipenem/Cilastatin Sodium 500 (mg/ Sodium Chloride) 100 mls @ 100 mls/hr IVPB Q6H [facility] Last Admin: 12/15/16 05:41 Dose: 100 mls/hr Gentamicin Sulfate 80 mg/ (Sodium Chloride) 102 mls @ 100 mls/hr IVPB Q12H [facility] Insulin Aspart (Novolog) 0 unit SC ACHS [facility] PRN Reason: Protocol Last Admin: 12/15/16 08:02 Dose: 4 unit Loperamide HCl (Imodium) 2 mg PO QID PRN PRN Reason: Diarrhea Last Admin: 12/13/16 09:27 Dose: 2 mg Megestrol Acetate (Megace) 400 mg PO DAILY [facility] Last Admin: 12/14/16 09:57 Dose: 400 mg Midodrine (Proamatine) 2.5 mg PO TID [facility] Last Admin: 12/14/16 17:56 Dose: 2.5 mg Ondansetron HCl (Zofran Inj) 4 mg IVP Q6H PRN PRN Reason: Nausea/Vomiting Last Admin: 11/28/16 12:06 Dose: 4 mg Pantoprazole Sodium (Protonix Ec Tab) 40 mg PO DAILY [facility] Last Admin: 12/14/16 09:59 Dose: 40 mg Saccharomyces Boulardii (Florastor) 250 mg PO BID [facility] Last Admin: 12/14/16 17:56 Dose: 250 mg Sertraline HCl (Zoloft) 50 mg PO DAILY [facility] Last Admin: 12/14/16 09:59 Dose: 50 mg Zolpidem Tartrate (Ambien) 5 mg PO HS PRN PRN Reason: Insomnia Last Admin: 12/03/16 21:31 Dose: 5 mg - Labs Labs: 12/15/16 06:23 12/15/16 06:23 PT 15.0 SECONDS (9.7-12.2) H 12/03/16 07:08 INR 1.3 12/03/16 07:08 APTT 37 SECONDS (21-34) H 12/03/16 07:08 Attending/Attestation - Attestation I have personally seen and examined this patient.: Yes I have fully participated in the care of the patient.: Yes I have reviewed all pertinent clinical information, including history, physical exam and plan: Yes Notes (Text): Medical Attending: Patient was seen and examined by me. Agree with the above note by the resident. The patient asked when he could start chemo therapy - I explained to him very honestly that considering the patient is not able to walk and not even able to get out of bed due to weakness and that he has active infections needing IV abx to treat ESBL in the blood and also pelvic abscess area - that he probably is no where stable enough to get chemo. His appetite is also very poor. thank you Abdiel Cai
[2016-12-15] MEDS: (Novolog) Insulin Aspart, Recombinant 100 u/ml 10 ml vial SC SCH ×4 (08:02→21:29)
[2016-12-15] MEDS: Megestrol Acetate 40 mg/ml Cup PO SCH (10:06)
[2016-12-15] MEDS: Saccharomyces Boulardi 250 mg Cap PO SCH ×2 (10:06→18:02)
[2016-12-15] MEDS: Enoxaparin 100 mg Syringe SC SCH ×2 (10:06→21:28)
[2016-12-15] MEDS: Pantoprazole 40 mg EC Tab PO SCH (10:06)
[2016-12-15] MEDS: Calcium-Vit D 500 mg-200 Units Tab UD PO SCH (10:28)
--- NOTE | 2016-12-16 07:29 | CP.PCM.PN ---
<Simin Hall - Last Filed: 12/16/16 13:13> Subjective - Date & Time of Evaluation Date of Evaluation: 12/16/16 Time of Evaluation: 07:00 - Subjective Subjective: Medicine note for Dr. Rivera Patient seen and examined at bedside. Patient reports he has testicular swelling. He continues to feel weak. He asked if chemotherapy can be started but due to his current state, it was unexplained he would not be able to start it. Denied any fever, chills, SOB, cough, chest pain, abdominal pain, n/v, or urinary symptoms. Objective - Vital Signs/Intake and Output Vital Signs (last 24 hours): Temp Pulse Resp BP Pulse Ox 98 F 113 H 20 93/64 L 96 12/15/16 23:20 12/15/16 23:20 12/15/16 23:20 12/15/16 23:20 12/15/16 23:20 Intake and Output: 12/16/16 12/16/16 06:59 18:59 Intake Total 400 Output Total 655 Balance -255 - Medications Medications: Current Medications Calcium/Vitamin D (Oyster Shell Calcium/Vitamin D 500 Mg-200 Iu) 1 tab PO DAILY [facility] Last Admin: 12/15/16 10:28 Dose: 1 tab Dextrose (Dextrose 50% Inj) 0 ml IV STAT PRN; Protocol PRN Reason: Hyglycemia Protocol Last Admin: 12/12/16 17:32 Dose: 50 ml Enoxaparin Sodium (Lovenox) 90 mg SC Q12 [facility] Last Admin: 12/15/16 21:28 Dose: 90 mg Gabapentin (Neurontin) 100 mg PO TID [facility] Last Admin: 12/15/16 18:02 Dose: 100 mg Hydroxyzine HCl (Atarax) 25 mg PO Q6 PRN PRN Reason: Anxiety Imipenem/Cilastatin Sodium 500 (mg/ Sodium Chloride) 100 mls @ 100 mls/hr IVPB Q6H [facility] Last Admin: 12/16/16 06:19 Dose: 100 mls/hr Gentamicin Sulfate 80 mg/ (Sodium Chloride) 102 mls @ 100 mls/hr IVPB Q12H [facility] Last Admin: 12/15/16 21:27 Dose: 100 mls/hr Ampicillin 2 gm/ Sodium (Chloride) 100 mls @ 50 mls/hr IVPB Q6H [facility] Last Admin: 12/16/16 02:36 Dose: 50 mls/hr Insulin Aspart (Novolog) 0 unit SC ACHS [facility] PRN Reason: Protocol Last Admin: 12/15/16 21:29 Dose: Not Given Loperamide HCl (Imodium) 2 mg PO QID PRN PRN Reason: Diarrhea Last Admin: 12/13/16 09:27 Dose: 2 mg Megestrol Acetate (Megace) 400 mg PO DAILY [facility] Last Admin: 12/15/16 10:06 Dose: 400 mg Midodrine (Proamatine) 2.5 mg PO TID [facility] Last Admin: 12/15/16 18:02 Dose: 2.5 mg Ondansetron HCl (Zofran Inj) 4 mg IVP Q6H PRN PRN Reason: Nausea/Vomiting Last Admin: 11/28/16 12:06 Dose: 4 mg Pantoprazole Sodium (Protonix Ec Tab) 40 mg PO DAILY [facility] Last Admin: 12/15/16 10:06 Dose: 40 mg Saccharomyces Boulardii (Florastor) 250 mg PO BID [facility] Last Admin: 12/15/16 18:02 Dose: 250 mg Sertraline HCl (Zoloft) 50 mg PO DAILY [facility] Last Admin: 12/15/16 10:06 Dose: 50 mg Zolpidem Tartrate (Ambien) 5 mg PO HS PRN PRN Reason: Insomnia Last Admin: 12/03/16 21:31 Dose: 5 mg - Labs Labs: 12/15/16 06:23 12/15/16 06:23 PT 15.0 SECONDS (9.7-12.2) H 12/03/16 07:08 INR 1.3 12/03/16 07:08 APTT 37 SECONDS (21-34) H 12/03/16 07:08 - Constitutional Appears: No Acute Distress, Chronically Ill - Head Exam Head Exam: NORMAL INSPECTION, NORMOCEPHALIC - Eye Exam Eye Exam: EOMI, Normal appearance, PERRL Pupil Exam: NORMAL ACCOMODATION - ENT Exam ENT Exam: Mucous Membranes Moist - Respiratory Exam Respiratory Exam: Decreased Breath Sounds, Clear to Ausculation Bilateral, NORMAL BREATHING PATTERN. absent: Wheezes - Cardiovascular Exam Cardiovascular Exam: Tachycardia, +S1, +S2 Additional comments: RIGHT IJ PORTACATH - GI/Abdominal Exam GI & Abdominal Exam: Soft, Normal Bowel Sounds. absent: Tenderness Additional comments: abdominal incision, somewhat well healed, a small area is weeping. CRYS DRAIN IN PLACE, continuing to drain - Extremities Exam Extremities Exam: Pedal Edema. absent: Tenderness Additional comments: right arm less swollen than previous week - Neurological Exam Neurological Exam: Alert, Awake, Oriented x3 - Psychiatric Exam Psychiatric exam: Depressed - Skin Skin Exam: Dry, Intact, Normal Color, Warm Assessment and Plan - Assessment and Plan (Free Text) Plan: Anemia of chronic disease Assessment & Plan: Hemoglobin continues to be stable. Continue to monitor Patient was transfused 2 units PRBCs on 12/13/16 S/P transfusion total 2 units PRBCs 12/06 BOTTOMING ROOM INSPECTOR was called on patient 12/04/16 due hypotension. Lasix was discontinued. He was given a fluid bolus, albumin and continued with the 1 unit of PRBCs. Patient was given albumin again today. And will be transfused another unit of PRBCs due to hemoglobin of 7.8. H/H was 7.7/27.4 - Consent retrieved- patient will be transfused 1 unit of PRBCs 11/26: After discussing with Heme/Onc Dr Garcia, since Ferritin is normal ferrlecit will not provide much benefit, will discontinue 11/25: Will start Ferrlecit 125mg iv daily after surgical procedure 11/25: Hgb stable at 8.6. Status: Acute Bacteremia Assessment & Plan: Continues to be tachycardic, normotensive with few episodes of hypotension. Afebrile since 12/06/16 Blood and urine cultures 12/14/16, Urine negative, 1 blood culture was positive - gram + source unknown if from PICC line or a peripheral line. Will repeat cultures - tomorrrow 12/17/16 CT abd/pelvis 12/07 showed enlargement of pelvic abscess, will consult IR for possible draining of abscess. 12/10: IR consulted for pelvic abscess drainage. Mass has increased from 8.4 x 6.9 x x 6.7 (11/16) to 12 x 15 x 8.5 (12/07). STILL IN PLACE!! 12/06/16 Blood culture + ESBL 12/06/16 Urine Culture + VRE - On Primaxin 400mg IVPB Q6 hours (started 12/06) - Start Ampicillin 2grams IVPB Q6 hours (started 12/08) - Was given 2 doses of Gentamicin on 12/07 and 12/06 12/06: Tachycardia, hypotensive, with bandemia at 27. Pt was jesus cultured. DC Rocephin. Was given a stat dose of Gentamycin and restarted on Primaxin. Possible source PICC line or RIJ Portacath. 11/30/17: As per ID, Repeat blood culture was negative, Primaxin and Flagyl was discontinued (11/29/16). Ceftriaxone 2 gm IV Q24H for 14 days starting 11/29/16 11/29/16: E. coli in blood culture on 11/15/16. Repeat blood culture on 11/23/16 was finalized as negative. I will speak with ID Dr. Burns concerning how much longer we need to continue the Primaxin and Flagyl 11/27: wbc trending down. afebrile. will continue primaxin and flagyl and monitor bands and wbc. Blood cultures negative after 3 days. 11/26: Patient in ICU for monitoring post OR, Bands 12 today, will monitor. 11/25: Blood cultures are negative after [address] Burns, con't tx for minimum of 14 days; Primaxin and Flagyl both started on 11/17. 11/19: HIV screen negative, Hep panel negative. Bands 26 today. 11/17: Changed to IV Primaxin 500mg IV Q6 Follow cultures. Currently blood pressure and HR stable. Nonfebrile. Continue with the IVF, monitor west outputs Status: Acute Pelvic Abscess Assessment & Plan: 12/10: IR consulted for pelvic abscess drainage . Mass has increased from 8.4 x 6.9 x x 6.7 (11/16) to 12 x 15 x 8.5 (12/07). CRYS drain in place. Continues to drain. Status: Acute Pleural Effusions Assessment & Plan: Repeated CXR 12/10/16 which is unchanged from previous on 12/06, bilateral pleural effusions R>L are stable. Repeat CXR (12/06) shows: Decreased bilateral pleural effusion. Probable linear atelectasis at left base. 12/07 CXR 12/02 compared to 11/15 --> B/L pleural effusions R>L. Was placed on lasix 20mg IVP Q12. Pulmonology consulted, Dr. Mccormick - patient is for thoracentesis. IR reported not enough fluid for thoracentesis. 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 12/06 C diff negative - Immodium added Stool culture negative for salmonella, shigella, campylobacter Stool leukocytes negative Ova and parasites not seen S/P RIJ Portacath insertion (12/03), s/p exploratory laparotomy (11/26) POD#10, w/ findings of unresectable rectosigmoid mass. 12/02/16 POD #6; Surgery will remove abdominal incision jody on POD #10. Surgery reconsulted for portacath placement. NPO past midnight tonight for OR tomorrow morning. 11/30/16: POD # 4: As per conversation with Dr. Lake Harris on 11/29/16, patient has decided to be DNR/DNI 11/29/16: POD #3. Patient is still undecided concerning further management. If he decides to proceed then he will need a Chemo Port placed. He has signed DNR/ DNI. I discussed patient's decision concerning further treatment with Dr. Willow Garcia on the night of 11/28/1611/28: s/p exploratory laparotomy POD2, w/ findings of unresectable rectosigmoid mass. Patient stated today he does not want the chemoport, he said he wants time to think about it. Patient appears tired and he does not want to make sudden decisions. No morning labs, blood draw was difficult this morning due to poor vein access. 11/27: s/p exploratory laparotomy POD1, w/ findings of unresectable rectosigmoid mass. Per surgery note, patient will need a portacath placement, time and date to be determined. Will stop heparin drip (tx for RUE deep vein thrombosis) 4 hours prior to portacath placement procedure. 11/26: Per surgical garment fitter, the surgery today to resect patient's sigmoid mass was halted after it was determined the mass was too large/firm for removal. The patient will be treated with a neoadjuvant with hopes of shrinking the size of the tumor with possible surgery for removal at a later date. Patient was sent to ICU post OR for monitoring. 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 Due to lovenox longer half life, therapeutic lovenox was discontinued and heparin was started. Heparin 8000u iv bolus was given and heparin drip was started at 18u/kg/hr. This drip will be stopped at exactly 5am, 4 hours before surgery. 11/21: Pt s/p cystoscopy today. Patient found to have invasion to dome of urinary bladder. Surgery to plan for surgery some time next week 11/21: Per GI, Abdominal U/S obtained to rule out SV thrombosis given presence of gastroesopahgeal varices seen on endoscopic examination -> Abdominal U/S: 1. Hepatocellular disease without focal hepatic mass. 2. Patent portal venous system including splenic vein. 3. Cholelithiasis. No sonographic evidence of acute cholecystitis. 4. Cystic mass in the head of the pancreas. Remainder the pancreas is not visualized. 11/21: PICC placed today by IR DR Armando. 11/20: s/p upper EUS: "LA grade C erosive esophagitis. 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 75mm x 65mm psedocyst seen in pancreatic body, fine needle aspiration for fluid performed. Varices were visualized endosonographically in fundus of stomach". Will f/u cystology and CEA levels. 11/20: s/p venous duplex of upper extremities: "right: acute thrombosis of right subclavian, axillary and brachial veins with severe reduction of venous return. left: acute thrombosis of left cephatlic vein with severe reduction of venous return". Therapeutic lovenox started -> 90mg q12 sc. 11/20: s/p venous duplex of lower extremeties: negative 11/19: GI to perform EUS tomorrow. Advanced diet to liquid - will advance as tolerated. B/l upper and lower extremity duplex scans were ordered today. 11/18: Patient is s/p EGD/Colonoscopy. A 10cm partially obstructing sigmoid mass was seen and biopsied. Multiple polyps were seen and resected. Heme/Onc, Dr Garcia has been consulted, we will follow up with his recommendations. CT chest abdomen and pelvis findings as noted: suspected sigmoid and proximal rectum mass lesion without evidence of high grade bowel obstruction; suspected abscess formation; cystic mass lesion noted at pancreas with surrounding fat stranding of the pancreatic tail; large gallstones without evidence of acute cholecystitis GI consult (Dr. Srivastava)---> Help appreciated General Surgery Consult (Dr. Amin)----> Help appreciated Urology Consult (Dr. Jon)----> Help appreciated Status: Acute Acute deep vein thrombosis (DVT) of right upper extremity Assessment & Plan: Continue therapeutic Lovenox at 90 mg SC Q12H 11/29: Heparin Drip was discontinued on 11/28/16 as PTT could not be measured secondary to inability to draw blood from edematous arms and could not draw blood from left arm PICC for the PTT level due to the Heprin Drip being infused through the PICC. Therefore patient was restarted on therapeutic Lovenox at 90 mg SC Q12H 11/27: Heparin drip restarted at 18u/kg/hr. Heparin bolus 8,000u given prior to start of drip. 11/26: Per surgery, plan is to restart anticoagulant tomorrow morning Status: Acute Uncontrolled diabetes mellitus Assessment & Plan: Levemir 15 units SC HS---> DC due to continue hypoglycemic events and decreased appetite. Recent HgbA1C: 11.5 (11/20/16) Accuchecks Aspart ISS - low Status: Chronic Esophageal abrasion Assessment & Plan: 11/18: Per endoscopy report * Ulcerated mucosa in the lower third of the esophagus was seen and biopsied. Pathology negative for h pylori. * Patient is on Protonix 40 mg PO BID. Status: Acute Pancreatic lesion Assessment & Plan: GI outpatient follow-up 11/26: Pancreatic cyst FNA negative for malignant cells per cytology report. 11/25: Per laborer aquatic life, EUS performed on 11/20 sampled pancreatic cyst fluid with diagnostic studies ordered for ptf amylase and ptfCEA only 11/20: Upper EUS performed today: "75mm x 65mm psedocyst seen in pancreatic body , fine needle aspiration for fluid performed 11/18: CT abd/pelvis shows cystic mass lesion at pancreas with fat stranding of pacreatic tail. Lipase level and lipid panel was ordered today. 11/17: CA 19-9 wnl Status: Acute Cholelithiasis Assessment & Plan: GI outpatient follow-up 11/18: CT abd/pelvis shows large gallstones without evidence of acute cholecystitis. Denies abd pain Status: Acute Abnormal cardiovascular stress test Assessment & Plan: Cardiology outpatient follow-up 11/25: Nuclear Stress Test: Defect in mid-anteroseptal wall, defect in basal inferoseptal wall, fixed apical defect old [place], small defect inferior wall 11/25: ECHO: left ventricle systolic function is normal. EF is 50-55%. Status: Acute Major Depressive Disorder Assessment & Plan: Dr. Loredo consulted, help appreciated Zoloft 50mg PO daily Psychoeducation Status: Acute VRE + Urine _ RESOLVED Assessment & Plan: REPEAT urine cultures 12/10/16 negative x 3 days Urine culture from west 12/06 shows UTI +VRE Dr. Burns ID informed Start Ampicillin 2 grams IVPB Q6 hours (started 12/08), On Primaxin 400mg IVPB Q6 hours (started 12/06) Contact precautions CHANGE OF WEST 12/10/16 Status: RESOLVED Prophylactic measure Assessment & Plan: Protonix 40 mg PO BID Lovenox 90mg IV q12H Florastor PO BID Ambien 5 mg PO HS Marinol PO daily Physical Therapy started on 11/29/16 Status: Acute Disposition: Patient will be discharged home once medically stable and ABLE TO AMBULATE with wheelchair, walker or cane and instructed to follow up with the [facility] for a referral for Dr. Garcia to have outpatient chemotherapy. Due to patient's declining condition we will have palliative care speak to family next week, which are to arrive sometime this week. Patient was mad DNR/ DNI during this admission. DW Rafael Stoddard DO, PGY-1 <Blanco Rivera M - Last Filed: 12/16/16 15:40> Objective - Vital Signs/Intake and Output Vital Signs (last 24 hours): Temp Pulse Resp BP Pulse Ox 97.4 F L 98 H 18 108/74 100 12/16/16 07:05 12/16/16 09:00 12/16/16 07:05 12/16/16 07:05 12/16/16 07:05 Intake and Output: 12/16/16 12/16/16 06:59 18:59 Intake Total 400 Output Total 655 Balance -255 - Medications Medications: Current Medications Calcium/Vitamin D (Oyster Shell Calcium/Vitamin D 500 Mg-200 Iu) 1 tab PO DAILY [facility] Last Admin: 12/16/16 10:54 Dose: 1 tab Dextrose (Dextrose 50% Inj) 0 ml IV STAT PRN; Protocol PRN Reason: Hyglycemia Protocol Last Admin: 12/12/16 17:32 Dose: 50 ml Dronabinol (Marinol) 2.5 mg PO BID [facility] Last Admin: 12/16/16 11:15 Dose: 2.5 mg Enoxaparin Sodium (Lovenox) 90 mg SC Q12 [facility] Last Admin: 12/16/16 10:51 Dose: 90 mg Gabapentin (Neurontin) 100 mg PO TID [facility] Last Admin: 12/16/16 14:33 Dose: 100 mg Hydroxyzine HCl (Atarax) 25 mg PO Q6 PRN PRN Reason: Anxiety Imipenem/Cilastatin Sodium 500 (mg/ Sodium Chloride) 100 mls @ 100 mls/hr IVPB Q6H [facility] Last Admin: 12/16/16 12:15 Dose: 100 mls/hr Gentamicin Sulfate 80 mg/ (Sodium Chloride) 102 mls @ 100 mls/hr IVPB Q12H [facility] Last Admin: 12/16/16 10:52 Dose: 100 mls/hr Ampicillin 2 gm/ Sodium (Chloride) 100 mls @ 50 mls/hr IVPB Q6H [facility] Last Admin: 12/16/16 14:32 Dose: 50 mls/hr Insulin Aspart (Novolog) 0 unit SC ACHS [facility] PRN Reason: Protocol Last Admin: 12/16/16 12:05 Dose: 8 unit Loperamide HCl (Imodium) 2 mg PO QID PRN PRN Reason: Diarrhea Last Admin: 12/13/16 09:27 Dose: 2 mg Midodrine (Proamatine) 2.5 mg PO TID [facility] Last Admin: 12/16/16 14:33 Dose: 2.5 mg Ondansetron HCl (Zofran Inj) 4 mg IVP Q6H PRN PRN Reason: Nausea/Vomiting Last Admin: 11/28/16 12:06 Dose: 4 mg Pantoprazole Sodium (Protonix Ec Tab) 40 mg PO DAILY [facility] Last Admin: 12/16/16 10:50 Dose: 40 mg Saccharomyces Boulardii (Florastor) 250 mg PO BID [facility] Last Admin: 12/16/16 10:52 Dose: 250 mg Sertraline HCl (Zoloft) 50 mg PO DAILY [facility] Last Admin: 12/16/16 10:50 Dose: 50 mg Zolpidem Tartrate (Ambien) 5 mg PO HS PRN PRN Reason: Insomnia Last Admin: 12/03/16 21:31 Dose: 5 mg - Labs Labs: 12/16/16 07:18 12/16/16 07:18 PT 15.0 SECONDS (9.7-12.2) H 12/03/16 07:08 INR 1.3 12/03/16 07:08 APTT 37 SECONDS (21-34) H 12/03/16 07:08 Attending/Attestation - Attestation I have personally seen and examined this patient.: Yes I have fully participated in the care of the patient.: Yes I have reviewed all pertinent clinical information, including history, physical exam and plan: Yes Notes (Text): 12/16/16 15:39 Patient was seen and examined at bedside with the resident Patient complains of generalized weakness He will continue on IV antibiotics so for positive blood and urine cultures as per recommendations of ID Patient is currently on ampicillin, gentamicin, imipenem.. I discussed the plan of care with the resident and agree with the history and physical and assessment/plan documented here.
[2016-12-16 07:32] LABS: BASO % 0.1 % (0.0-2.0); EOS % 0.1 % (0.0-4.0); HEMATOCRIT 30.7 % (35.0-51.0); LYMPH # 0.9 K/uL (1.0-4.3); LYMPH % 9.4 % (20.0-40.0); MEAN CELL VOLUME 83.4 fL (80.0-94.0); MEAN CORPUSCULAR HEMOGLOBIN 27.1 pg (27.0-31.0); MEAN CORPUSCULAR HGB CONC 32.5 g/dL (33.0-37.0); MEAN PLATELET VOLUME 8.8 fL (7.2-11.7); MONO # 0.8 K/uL (0.0-0.8); MONO % 8.9 % (0.0-10.0); PLATELET COUNT 247 K/uL (130-400); RED CELL DISTRIBUTION WIDTH 21.1 % (11.5-14.5); WHITE BLOOD COUNT 9.3 K/uL (4.8-10.8)
[2016-12-16 08:00] LABS: CHLORIDE 102 mmol/L (98-107); SODIUM 132 mmol/L (132-148)
[2016-12-16 08:01] LABS: POTASSIUM 3.6 mmol/L (3.6-5.2)
[2016-12-16 08:02] LABS: GFR AFRICAN-AMERICAN > 60
[2016-12-16 08:03] LABS: ALB/GLOB RATIO 0.6 (1.0-2.1); ALKALINE PHOSPHATASE 200 U/L (38-126); AST/SGOT 14 U/L (17-59); BILIRUBIN,TOTAL 0.7 mg/dL (0.2-1.3); CARBON DIOXIDE 25 mmol/L (22-30); TOTAL PROTEIN 4.4 g/dL (6.3-8.3)
[2016-12-16 08:04] LABS: ALT/SGPT 27 U/L (21-72); BLOOD UREA NITROGEN 13 mg/dL (9-20); CALCIUM 6.8 mg/dl (8.6-10.4); GLUCOSE,RANDOM 207 mg/dL (75-110); MAGNESIUM 1.7 mg/dL (1.6-2.3); PHOSPHOROUS 3.3 mg/dL (2.5-4.5)
[2016-12-16] MEDS: (Novolog) Insulin Aspart, Recombinant 100 u/ml 10 ml vial SC SCH ×4 (08:20→22:21)
[2016-12-16 08:53] LABS: NEUTROPHIL 81 % (50-75); TOTAL CELLS COUNTED 100
[2016-12-16] MEDS: Megestrol Acetate 40 mg/ml Cup PO SCH (10:50)
[2016-12-16] MEDS: Pantoprazole 40 mg EC Tab PO SCH (10:50)
[2016-12-16] MEDS: Enoxaparin 100 mg Syringe SC SCH ×2 (10:51→22:20)
[2016-12-16] MEDS: Saccharomyces Boulardi 250 mg Cap PO SCH ×2 (10:52→18:47)
[2016-12-16] MEDS: Calcium-Vit D 500 mg-200 Units Tab UD PO SCH (10:54)
[2016-12-17 06:30] LABS: BASO % 0.2 % (0.0-2.0); EOS % 0.3 % (0.0-4.0); HEMATOCRIT 28.2 % (35.0-51.0); LYMPH # 0.9 K/uL (1.0-4.3); LYMPH % 12.2 % (20.0-40.0); MEAN CELL VOLUME 83.2 fL (80.0-94.0); MEAN CORPUSCULAR HEMOGLOBIN 27.3 pg (27.0-31.0); MEAN CORPUSCULAR HGB CONC 32.8 g/dL (33.0-37.0); MEAN PLATELET VOLUME 8.6 fL (7.2-11.7); MONO # 0.8 K/uL (0.0-0.8); MONO % 11.2 % (0.0-10.0); RED CELL DISTRIBUTION WIDTH 21.4 % (11.5-14.5); WHITE BLOOD COUNT 7.6 K/uL (4.8-10.8)
[2016-12-17 07:17] LABS: CHLORIDE 103 mmol/L (98-107)
[2016-12-17 07:18] LABS: POTASSIUM 3.5 mmol/L (3.6-5.2); SODIUM 133 mmol/L (132-148)
[2016-12-17 07:19] LABS: BILIRUBIN,TOTAL 0.6 mg/dL (0.2-1.3); GFR AFRICAN-AMERICAN > 60
[2016-12-17 07:20] LABS: ALKALINE PHOSPHATASE 181 U/L (38-126); ALT/SGPT 28 U/L (21-72); AST/SGOT 14 U/L (17-59); BLOOD UREA NITROGEN 15 mg/dL (9-20); CALCIUM 6.8 mg/dl (8.6-10.4); CARBON DIOXIDE 25 mmol/L (22-30); GLUCOSE,RANDOM 135 mg/dL (75-110); PHOSPHOROUS 3.2 mg/dL (2.5-4.5); TOTAL PROTEIN 4.2 g/dL (6.3-8.3)
[2016-12-17 07:21] LABS: MAGNESIUM 1.7 mg/dL (1.6-2.3)
[2016-12-17 07:26] LABS: ALB/GLOB RATIO 0.6 (1.0-2.1)
[2016-12-17] MEDS: (Novolog) Insulin Aspart, Recombinant 100 u/ml 10 ml vial SC SCH ×4 (07:45→21:28)
--- NOTE | 2016-12-17 07:51 | CP.PCM.PN ---
Addendum entered and electronically signed by Simin Hall DO 12/17/16 14:38 : VRE + in blood culture 12/14/16 Original Note: <Simin Hall - Last Filed: 12/17/16 12:34> Subjective - Date & Time of Evaluation Date of Evaluation: 12/17/16 Time of Evaluation: 07:00 - Subjective Subjective: Medicine note for Dr. Rivera Patient seen and examined at bedside. Patient reports he feels the same. Family is at bedside. Recruit Instructor was used Brittni # [id number] to explain the patient 's condition and prognosis as well as to answer any of their questions. Denied any fever, chills, SOB, cough, chest pain, abdominal pain, n/v, or urinary symptoms. Objective - Vital Signs/Intake and Output Vital Signs (last 24 hours): Temp Pulse Resp BP Pulse Ox 97.4 F L 90 20 116/72 98 12/16/16 23:25 12/16/16 23:25 12/16/16 23:25 12/16/16 23:25 12/16/16 23:25 Intake and Output: 12/17/16 12/17/16 06:59 18:59 Intake Total 500 Output Total 550 Balance -50 - Medications Medications: Current Medications Calcium/Vitamin D (Oyster Shell Calcium/Vitamin D 500 Mg-200 Iu) 1 tab PO DAILY [facility] Last Admin: 12/16/16 10:54 Dose: 1 tab Dextrose (Dextrose 50% Inj) 0 ml IV STAT PRN; Protocol PRN Reason: Hyglycemia Protocol Last Admin: 12/12/16 17:32 Dose: 50 ml Dronabinol (Marinol) 2.5 mg PO BID [facility] Last Admin: 12/16/16 18:48 Dose: 2.5 mg Enoxaparin Sodium (Lovenox) 90 mg SC Q12 [facility] Last Admin: 12/16/16 22:20 Dose: 90 mg Gabapentin (Neurontin) 100 mg PO TID [facility] Last Admin: 12/16/16 18:47 Dose: 100 mg Hydroxyzine HCl (Atarax) 25 mg PO Q6 PRN PRN Reason: Anxiety Imipenem/Cilastatin Sodium 500 (mg/ Sodium Chloride) 100 mls @ 100 mls/hr IVPB Q6H [facility] Last Admin: 12/17/16 05:35 Dose: 100 mls/hr Gentamicin Sulfate 80 mg/ (Sodium Chloride) 102 mls @ 100 mls/hr IVPB Q12H [facility] Last Admin: 12/16/16 22:21 Dose: 100 mls/hr Ampicillin 2 gm/ Sodium (Chloride) 100 mls @ 50 mls/hr IVPB Q6H [facility] Last Admin: 12/17/16 02:17 Dose: 50 mls/hr Insulin Aspart (Novolog) 0 unit SC ACHS [facility] PRN Reason: Protocol Last Admin: 12/17/16 07:45 Dose: 2 unit Loperamide HCl (Imodium) 2 mg PO QID PRN PRN Reason: Diarrhea Last Admin: 12/13/16 09:27 Dose: 2 mg Midodrine (Proamatine) 2.5 mg PO TID [facility] Last Admin: 12/16/16 18:48 Dose: 2.5 mg Ondansetron HCl (Zofran Inj) 4 mg IVP Q6H PRN PRN Reason: Nausea/Vomiting Last Admin: 11/28/16 12:06 Dose: 4 mg Pantoprazole Sodium (Protonix Ec Tab) 40 mg PO DAILY [facility] Last Admin: 12/16/16 10:50 Dose: 40 mg Saccharomyces Boulardii (Florastor) 250 mg PO BID [facility] Last Admin: 12/16/16 18:47 Dose: 250 mg Sertraline HCl (Zoloft) 50 mg PO DAILY [facility] Last Admin: 12/16/16 10:50 Dose: 50 mg Zolpidem Tartrate (Ambien) 5 mg PO HS PRN PRN Reason: Insomnia Last Admin: 12/03/16 21:31 Dose: 5 mg - Labs Labs: 12/17/16 06:07 12/17/16 06:07 PT 15.0 SECONDS (9.7-12.2) H 12/03/16 07:08 INR 1.3 12/03/16 07:08 APTT 37 SECONDS (21-34) H 12/03/16 07:08 - Constitutional Appears: No Acute Distress, Chronically Ill - Head Exam Head Exam: NORMAL INSPECTION, NORMOCEPHALIC - Eye Exam Eye Exam: EOMI, Normal appearance, PERRL - ENT Exam ENT Exam: Mucous Membranes Moist - Respiratory Exam Respiratory Exam: Decreased Breath Sounds, NORMAL BREATHING PATTERN Additional comments: RIGHT IJ PORTACATH - Cardiovascular Exam Cardiovascular Exam: REGULAR RHYTHM, RRR, +S1 - GI/Abdominal Exam GI & Abdominal Exam: Soft, Normal Bowel Sounds. absent: Distended, Tenderness Additional comments: abdominal incision, somewhat well healed, a small area is weeping. CRYS DRAIN IN PLACE, continuing to drain - Extremities Exam Extremities Exam: Pedal Edema Additional comments: right arm less swollen than previous week LEFT ARM PICC - Neurological Exam Neurological Exam: Alert, Awake, Oriented x3 - Psychiatric Exam Psychiatric exam: Depressed - Skin Skin Exam: Dry, Intact, Normal Color, Warm Assessment and Plan - Assessment and Plan (Free Text) Plan: Disposition: Family is at bedside. Recruit Instructor was used Brittni # [id number] to explain the patient's condition and prognosis as well as to answer any of their questions. Due to patient's declining condition we will have palliative care speak to family about goals of care and how aggresive they will like to be with treatment. Patient was made DNR/DNI during this admission. Bacteremia Assessment & Plan: Continues to be tachycardic, normotensive with few episodes of hypotension. Afebrile since 12/06/16 Blood and urine cultures 12/14/16, Urine negative, 1 blood culture was positive - gram + source unknown if from PICC line or a peripheral line. Blood and urine cultures drawn yesterday and today. Will follow up results. CT abd/pelvis 12/07 showed enlargement of pelvic abscess, will consult IR for possible draining of abscess. 12/10: IR consulted for pelvic abscess drainage. Mass has increased from 8.4 x 6.9 x x 6.7 (11/16) to 12 x 15 x 8.5 (12/07). STILL IN PLACE!! 12/06/16 Blood culture + ESBL 12/06/16 Urine Culture + VRE - On Primaxin 400mg IVPB Q6 hours (started 12/06) - Start Ampicillin 2grams IVPB Q6 hours (started 12/08) - Was given 2 doses of Gentamicin on 12/07 and 12/06 12/06: Tachycardia, hypotensive, with bandemia at 27. Pt was jesus cultured. DC Rocephin. Was given a stat dose of Gentamycin and restarted on Primaxin. Possible source PICC line or RIJ Portacath. 11/30/17: As per ID, Repeat blood culture was negative, Primaxin and Flagyl was discontinued (11/29/16). Ceftriaxone 2 gm IV Q24H for 14 days starting 11/29/16 11/29/16: E. coli in blood culture on 11/15/16. Repeat blood culture on 11/23/16 was finalized as negative. I will speak with ID Dr. Burns concerning how much longer we need to continue the Primaxin and Flagyl 11/27: wbc trending down. afebrile. will continue primaxin and flagyl and monitor bands and wbc. Blood cultures negative after 3 days. 11/26: Patient in ICU for monitoring post OR, Bands 12 today, will monitor. 11/25: Blood cultures are negative after [address] Burns, con't tx for minimum of 14 days; Primaxin and Flagyl both started on 11/17. 11/19: HIV screen negative, Hep panel negative. Bands 26 today. 11/17: Changed to IV Primaxin 500mg IV Q6 Follow cultures. Currently blood pressure and HR stable. Nonfebrile. Continue with the IVF, monitor west outputs Status: Acute Pelvic Abscess Assessment & Plan: 12/10: IR consulted for pelvic abscess drainage . Mass has increased from 8.4 x 6.9 x x 6.7 (11/16) to 12 x 15 x 8.5 (12/07). CRYS drain in place. Continues to drain. Status: Acute Anemia of chronic disease Assessment & Plan: Hemoglobin continues to be stable. Continue to monitor Patient was transfused 2 units PRBCs on 12/13/16 S/P transfusion total 2 units PRBCs 12/06 LINE REPAIRER was called on patient 12/04/16 due hypotension. Lasix was discontinued. He was given a fluid bolus, albumin and continued with the 1 unit of PRBCs. Patient was given albumin again today. And will be transfused another unit of PRBCs due to hemoglobin of 7.8. H/H was 7.7/27.4 - Consent retrieved- patient will be transfused 1 unit of PRBCs 11/26: After discussing with Heme/Onc Dr Garcia, since Ferritin is normal ferrlecit will not provide much benefit, will discontinue 11/25: Will start Ferrlecit 125mg iv daily after surgical procedure 11/25: Hgb stable at 8.6. Status: Acute Pleural Effusions Assessment & Plan: Repeated CXR 12/10/16 which is unchanged from previous on 12/06, bilateral pleural effusions R>L are stable. Repeat CXR (12/06) shows: Decreased bilateral pleural effusion. Probable linear atelectasis at left base. 12/07 CXR 12/02 compared to 11/15 --> B/L pleural effusions R>L. Was placed on lasix 20mg IVP Q12. Pulmonology consulted, Dr. Mccormick - patient is for thoracentesis. IR reported not enough fluid for thoracentesis. 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 12/06 C diff negative - Immodium added Stool culture negative for salmonella, shigella, campylobacter Stool leukocytes negative Ova and parasites not seen S/P RIJ Portacath insertion (12/03), s/p exploratory laparotomy (11/26) POD#10, w/ findings of unresectable rectosigmoid mass. 12/02/16 POD #6; Surgery will remove abdominal incision jody on POD #10. Surgery reconsulted for portacath placement. NPO past midnight tonight for OR tomorrow morning. 11/30/16: POD # 4: As per conversation with Dr. Lake Harris on 11/29/16, patient has decided to be DNR/DNI 11/29/16: POD #3. Patient is still undecided concerning further management. If he decides to proceed then he will need a Chemo Port placed. He has signed DNR/ DNI. I discussed patient's decision concerning further treatment with Dr. Willow Garcia on the night of 11/28/1611/28: s/p exploratory laparotomy POD2, w/ findings of unresectable rectosigmoid mass. Patient stated today he does not want the chemoport, he said he wants time to think about it. Patient appears tired and he does not want to make sudden decisions. No morning labs, blood draw was difficult this morning due to poor vein access. 11/27: s/p exploratory laparotomy POD1, w/ findings of unresectable rectosigmoid mass. Per surgery note, patient will need a portacath placement, time and date to be determined. Will stop heparin drip (tx for RUE deep vein thrombosis) 4 hours prior to portacath placement procedure. 11/26: Per residential pest control technician, the surgery today to resect patient's sigmoid mass was halted after it was determined the mass was too large/firm for removal. The patient will be treated with a neoadjuvant with hopes of shrinking the size of the tumor with possible surgery for removal at a later date. Patient was sent to ICU post OR for monitoring. 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 Due to lovenox longer half life, therapeutic lovenox was discontinued and heparin was started. Heparin 8000u iv bolus was given and heparin drip was started at 18u/kg/hr. This drip will be stopped at exactly 5am, 4 hours before surgery. 11/21: Pt s/p cystoscopy today. Patient found to have invasion to dome of urinary bladder. Surgery to plan for surgery some time next week 11/21: Per GI, Abdominal U/S obtained to rule out SV thrombosis given presence of gastroesopahgeal varices seen on endoscopic examination -> Abdominal U/S: 1. Hepatocellular disease without focal hepatic mass. 2. Patent portal venous system including splenic vein. 3. Cholelithiasis. No sonographic evidence of acute cholecystitis. 4. Cystic mass in the head of the pancreas. Remainder the pancreas is not visualized. 11/21: PICC placed today by IR DR Armando. 11/20: s/p upper EUS: "LA grade C erosive esophagitis. 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 75mm x 65mm psedocyst seen in pancreatic body, fine needle aspiration for fluid performed. Varices were visualized endosonographically in fundus of stomach". Will f/u cystology and CEA levels. 11/20: s/p venous duplex of upper extremities: "right: acute thrombosis of right subclavian, axillary and brachial veins with severe reduction of venous return. left: acute thrombosis of left cephatlic vein with severe reduction of venous return". Therapeutic lovenox started -> 90mg q12 sc. 11/20: s/p venous duplex of lower extremeties: negative 11/19: GI to perform EUS tomorrow. Advanced diet to liquid - will advance as tolerated. B/l upper and lower extremity duplex scans were ordered today. 11/18: Patient is s/p EGD/Colonoscopy. A 10cm partially obstructing sigmoid mass was seen and biopsied. Multiple polyps were seen and resected. Heme/Onc, Dr Garcia has been consulted, we will follow up with his recommendations. CT chest abdomen and pelvis findings as noted: suspected sigmoid and proximal rectum mass lesion without evidence of high grade bowel obstruction; suspected abscess formation; cystic mass lesion noted at pancreas with surrounding fat stranding of the pancreatic tail; large gallstones without evidence of acute cholecystitis GI consult (Dr. Srivastava)---> Help appreciated General Surgery Consult (Dr. Amin)----> Help appreciated Urology Consult (Dr. Jon)----> Help appreciated Status: Acute Pancreatic lesion Assessment & Plan: GI outpatient follow-up 11/26: Pancreatic cyst FNA negative for malignant cells per cytology report. 11/25: Per prosthetic lab technician, EUS performed on 11/20 sampled pancreatic cyst fluid with diagnostic studies ordered for ptf amylase and ptfCEA only 11/20: Upper EUS performed today: "75mm x 65mm psedocyst seen in pancreatic body , fine needle aspiration for fluid performed 11/18: CT abd/pelvis shows cystic mass lesion at pancreas with fat stranding of pacreatic tail. Lipase level and lipid panel was ordered today. 11/17: CA 19-9 wnl Status: Acute Acute deep vein thrombosis (DVT) of right upper extremity Assessment & Plan: Continue therapeutic Lovenox at 90 mg SC Q12H 11/29: Heparin Drip was discontinued on 11/28/16 as PTT could not be measured secondary to inability to draw blood from edematous arms and could not draw blood from left arm PICC for the PTT level due to the Heprin Drip being infused through the PICC. Therefore patient was restarted on therapeutic Lovenox at 90 mg SC Q12H 11/27: Heparin drip restarted at 18u/kg/hr. Heparin bolus 8,000u given prior to start of drip. 11/26: Per surgery, plan is to restart anticoagulant tomorrow morning Status: Acute Uncontrolled diabetes mellitus Assessment & Plan: Levemir 15 units SC HS---> DC due to continue hypoglycemic events and decreased appetite. Recent HgbA1C: 11.5 (11/20/16) Accuchecks Aspart ISS - low Status: Chronic Esophageal abrasion Assessment & Plan: 11/18: Per endoscopy report * Ulcerated mucosa in the lower third of the esophagus was seen and biopsied. Pathology negative for h pylori. * Patient is on Protonix 40 mg PO BID. Status: Acute Cholelithiasis Assessment & Plan: GI outpatient follow-up 11/18: CT abd/pelvis shows large gallstones without evidence of acute cholecystitis. Denies abd pain Status: Acute Abnormal cardiovascular stress test Assessment & Plan: Cardiology outpatient follow-up 11/25: Nuclear Stress Test: Defect in mid-anteroseptal wall, defect in basal inferoseptal wall, fixed apical defect old [place], small defect inferior wall 11/25: ECHO: left ventricle systolic function is normal. EF is 50-55%. Status: Acute Major Depressive Disorder Assessment & Plan: Dr. Loredo consulted, help appreciated Zoloft 50mg PO daily Psychoeducation Status: Acute VRE + Urine _ RESOLVED Assessment & Plan: REPEAT urine cultures 12/10/16 negative x 3 days Urine culture from west 12/06 shows UTI +VRE Dr. Burns ID informed Start Ampicillin 2 grams IVPB Q6 hours (started 12/08), On Primaxin 400mg IVPB Q6 hours (started 12/06) Contact precautions CHANGE OF WEST 12/10/16 Status: RESOLVED Prophylactic measure Assessment & Plan: Protonix 40 mg PO BID Lovenox 90mg IV q12H Florastor PO BID Ambien 5 mg PO HS Marinol PO daily Physical Therapy started on 11/29/16 Status: Acute Disposition: Patient will be discharged home once medically stable and ABLE TO AMBULATE with wheelchair, walker or cane and instructed to follow up with the [facility] for a referral for Dr. Garcia to have outpatient chemotherapy. DW Rafael Stoddard DO, PGY-1 <Blanco Rivera - Last Filed: 12/17/16 18:02> Objective - Vital Signs/Intake and Output Vital Signs (last 24 hours): Temp Pulse Resp BP Pulse Ox 98.3 F 91 H 20 115/75 97 12/17/16 16:00 12/17/16 16:00 12/17/16 16:00 12/17/16 16:00 12/17/16 16:00 Intake and Output: 12/17/16 12/17/16 06:59 18:59 Intake Total 500 Output Total 550 Balance -50 - Medications Medications: Current Medications Calcium/Vitamin D (Oyster Shell Calcium/Vitamin D 500 Mg-200 Iu) 1 tab PO DAILY [facility] Last Admin: 12/17/16 14:16 Dose: Not Given Dextrose (Dextrose 50% Inj) 0 ml IV STAT PRN; Protocol PRN Reason: Hyglycemia Protocol Last Admin: 12/12/16 17:32 Dose: 50 ml Dronabinol (Marinol) 2.5 mg PO BID [facility] Last Admin: 12/17/16 17:22 Dose: 2.5 mg Enoxaparin Sodium (Lovenox) 90 mg SC Q12 [facility] Gabapentin (Neurontin) 100 mg PO TID [facility] Last Admin: 12/17/16 17:22 Dose: 100 mg Hydroxyzine HCl (Atarax) 25 mg PO Q6 PRN PRN Reason: Anxiety Imipenem/Cilastatin Sodium 500 (mg/ Sodium Chloride) 100 mls @ 100 mls/hr IVPB Q6H [facility] Last Admin: 12/17/16 17:18 Dose: 100 mls/hr Gentamicin Sulfate 80 mg/ (Sodium Chloride) 102 mls @ 100 mls/hr IVPB Q12H [facility] Last Admin: 12/17/16 11:41 Dose: 100 mls/hr Ampicillin 2 gm/ Sodium (Chloride) 100 mls @ 50 mls/hr IVPB Q6H [facility] Last Admin: 12/17/16 14:13 Dose: 50 mls/hr Insulin Aspart (Novolog) 0 unit SC ACHS [facility] PRN Reason: Protocol Last Admin: 12/17/16 17:21 Dose: 2 unit Loperamide HCl (Imodium) 2 mg PO QID PRN PRN Reason: Diarrhea Last Admin: 12/13/16 09:27 Dose: 2 mg Midodrine (Proamatine) 2.5 mg PO TID [facility] Last Admin: 12/17/16 17:25 Dose: 2.5 mg Ondansetron HCl (Zofran Inj) 4 mg IVP Q6H PRN PRN Reason: Nausea/Vomiting Last Admin: 11/28/16 12:06 Dose: 4 mg Pantoprazole Sodium (Protonix Ec Tab) 40 mg PO DAILY [facility] Last Admin: 12/17/16 11:38 Dose: 40 mg Saccharomyces Boulardii (Florastor) 250 mg PO BID [facility] Last Admin: 12/17/16 17:22 Dose: 250 mg Sertraline HCl (Zoloft) 50 mg PO DAILY [facility] Last Admin: 12/17/16 11:38 Dose: 50 mg Zolpidem Tartrate (Ambien) 5 mg PO HS PRN PRN Reason: Insomnia Last Admin: 12/03/16 21:31 Dose: 5 mg - Labs Labs: 12/17/16 06:07 12/17/16 06:07 PT 15.0 SECONDS (9.7-12.2) H 12/03/16 07:08 INR 1.3 12/03/16 07:08 APTT 37 SECONDS (21-34) H 12/03/16 07:08 Attending/Attestation - Attestation I have personally seen and examined this patient.: Yes I have fully participated in the care of the patient.: Yes I have reviewed all pertinent clinical information, including history, physical exam and plan: Yes Notes (Text): 12/17/16 18:00 Patient was seen and examined at bedside with the resident Patient complains of diarrhea and generalized weakness Blood cultures noted. Patient is an IV antibiotics as per recommendations of ID We had the detailed discussion with the family at bedside through the mail censor The prognosis discussed the with the patient and the family I discussed the plan of care with the resident and agree with the history and physical and assessment/condition documented.
[2016-12-17] MEDS ORDERED: Potassium Chloride 20 mEq ER Tab PO ONE (10:00)
[2016-12-17] MEDS: Enoxaparin 100 mg Syringe SC SCH (11:38)
[2016-12-17] MEDS: Pantoprazole 40 mg EC Tab PO SCH (11:38)
[2016-12-17] MEDS: Saccharomyces Boulardi 250 mg Cap PO SCH ×2 (11:38→17:22)
[2016-12-17] MEDS: Calcium-Vit D 500 mg-200 Units Tab UD PO SCH (14:16)
[2016-12-17] MEDS: Enoxaparin 120 mg Syringe SC SCH (21:31)
--- NOTE | 2016-12-18 06:29 | CP.PCM.PN ---
<Simin Hall - Last Filed: 12/18/16 12:11> Subjective - Date & Time of Evaluation Date of Evaluation: 12/18/16 Time of Evaluation: 07:00 - Subjective Subjective: Medicine note for Dr. Rivera Patient seen and examined at bedside. Patient reports he feels the same. Continues to have loose bowel movements. Denied any fever, chills, SOB, cough, chest pain, abdominal pain, n/v, or urinary symptoms. Objective - Vital Signs/Intake and Output Vital Signs (last 24 hours): Temp Pulse Resp BP Pulse Ox 97.3 F L 92 H 20 105/70 98 12/17/16 23:35 12/18/16 01:00 12/17/16 23:35 12/17/16 23:35 12/17/16 23:35 Intake and Output: 12/17/16 12/18/16 18:59 06:59 Intake Total 700 Output Total 650 Balance 50 - Medications Medications: Current Medications Calcium/Vitamin D (Oyster Shell Calcium/Vitamin D 500 Mg-200 Iu) 1 tab PO DAILY [facility] Last Admin: 12/17/16 14:16 Dose: Not Given Dextrose (Dextrose 50% Inj) 0 ml IV STAT PRN; Protocol PRN Reason: Hyglycemia Protocol Last Admin: 12/12/16 17:32 Dose: 50 ml Dronabinol (Marinol) 2.5 mg PO BID [facility] Last Admin: 12/17/16 17:22 Dose: 2.5 mg Enoxaparin Sodium (Lovenox) 90 mg SC Q12 [facility] Last Admin: 12/17/16 21:31 Dose: 90 mg Gabapentin (Neurontin) 100 mg PO TID [facility] Last Admin: 12/17/16 17:22 Dose: 100 mg Hydroxyzine HCl (Atarax) 25 mg PO Q6 PRN PRN Reason: Anxiety Imipenem/Cilastatin Sodium 500 (mg/ Sodium Chloride) 100 mls @ 100 mls/hr IVPB Q6H [facility] Last Admin: 12/18/16 05:13 Dose: 100 mls/hr Gentamicin Sulfate 80 mg/ (Sodium Chloride) 102 mls @ 100 mls/hr IVPB Q12H [facility] Last Admin: 12/17/16 22:25 Dose: 100 mls/hr Ampicillin 2 gm/ Sodium (Chloride) 100 mls @ 50 mls/hr IVPB Q6H [facility] Last Admin: 12/18/16 02:02 Dose: 50 mls/hr Insulin Aspart (Novolog) 0 unit SC ACHS [facility] PRN Reason: Protocol Last Admin: 12/17/16 21:28 Dose: Not Given Loperamide HCl (Imodium) 2 mg PO QID PRN PRN Reason: Diarrhea Last Admin: 12/13/16 09:27 Dose: 2 mg Midodrine (Proamatine) 2.5 mg PO TID [facility] Last Admin: 12/17/16 17:25 Dose: 2.5 mg Ondansetron HCl (Zofran Inj) 4 mg IVP Q6H PRN PRN Reason: Nausea/Vomiting Last Admin: 11/28/16 12:06 Dose: 4 mg Pantoprazole Sodium (Protonix Ec Tab) 40 mg PO DAILY [facility] Last Admin: 12/17/16 11:38 Dose: 40 mg Saccharomyces Boulardii (Florastor) 250 mg PO BID [facility] Last Admin: 12/17/16 17:22 Dose: 250 mg Sertraline HCl (Zoloft) 50 mg PO DAILY [facility] Last Admin: 12/17/16 11:38 Dose: 50 mg Zolpidem Tartrate (Ambien) 5 mg PO HS PRN PRN Reason: Insomnia Last Admin: 12/03/16 21:31 Dose: 5 mg - Labs Labs: 12/17/16 06:07 12/17/16 06:07 PT 15.0 SECONDS (9.7-12.2) H 12/03/16 07:08 INR 1.3 12/03/16 07:08 APTT 37 SECONDS (21-34) H 12/03/16 07:08 - Constitutional Appears: No Acute Distress, Chronically Ill - Head Exam Head Exam: NORMAL INSPECTION, NORMOCEPHALIC - Eye Exam Eye Exam: EOMI, Normal appearance, PERRL Pupil Exam: NORMAL ACCOMODATION - ENT Exam ENT Exam: Mucous Membranes Moist - Respiratory Exam Respiratory Exam: Decreased Breath Sounds, NORMAL BREATHING PATTERN Additional comments: RIGHT IJ PORTACATH - Cardiovascular Exam Cardiovascular Exam: REGULAR RHYTHM, RRR, +S1, +S2 - GI/Abdominal Exam GI & Abdominal Exam: Soft, Hyperactive Bowel Sounds, Normal Bowel Sounds. absent: Tenderness Additional comments: abdominal incision, somewhat well healed, a small area is weeping. CRYS DRAIN IN PLACE, continuing to drain - Extremities Exam Extremities Exam: Pedal Edema Additional comments: right arm less swollen than previous week ( R UE DVT) LEFT ARM PICC - Neurological Exam Neurological Exam: Alert, Awake, Oriented x3 - Psychiatric Exam Psychiatric exam: Depressed - Skin Skin Exam: Dry, Intact, Normal Color, Warm Assessment and Plan - Assessment and Plan (Free Text) Plan: Disposition: Family is at bedside. Senior Medical Director was used Brittni # [id number] to explain the patient's condition and prognosis as well as to answer any of their questions. Due to patient's declining condition we will have palliative care speak to family about goals of care and how aggressive they will like to be with treatment. Patient was made DNR/DNI during this admission. As per Palliative care, the patient's wishes will be the final say Bacteremia Assessment & Plan: Continues to be tachycardic, normotensive with few episodes of hypotension. Afebrile since 12/06/16 Blood and urine cultures 12/14/16, Urine negative, 1 blood culture was positive - VRE unknown if from PICC line or a peripheral line. Blood and urine cultures drawn yesterday and today. Will follow up results. CT abd/pelvis 12/07 showed enlargement of pelvic abscess, will consult IR for possible draining of abscess. 12/10: IR consulted for pelvic abscess drainage. Mass has increased from 8.4 x 6.9 x x 6.7 (11/16) to 12 x 15 x 8.5 (12/07). STILL IN PLACE!! 12/06/16 Blood culture + ESBL 12/06/16 Urine Culture + VRE - On Primaxin 400mg IVPB Q6 hours (started 12/06) - Start Ampicillin 2grams IVPB Q6 hours (started 12/08) - Was given 2 doses of Gentamicin on 12/07 and 12/06 12/06: Tachycardia, hypotensive, with bandemia at 27. Pt was jesus cultured. DC Rocephin. Was given a stat dose of Gentamycin and restarted on Primaxin. Possible source PICC line or RIJ Portacath. 11/30/17: As per ID, Repeat blood culture was negative, Primaxin and Flagyl was discontinued (11/29/16). Ceftriaxone 2 gm IV Q24H for 14 days starting 11/29/16 11/29/16: E. coli in blood culture on 11/15/16. Repeat blood culture on 11/23/16 was finalized as negative. I will speak with ID Dr. Burns concerning how much longer we need to continue the Primaxin and Flagyl 11/27: wbc trending down. afebrile. will continue primaxin and flagyl and monitor bands and wbc. Blood cultures negative after 3 days. 11/26: Patient in ICU for monitoring post OR, Bands 12 today, will monitor. 11/25: Blood cultures are negative after [address] Burns, con't tx for minimum of 14 days; Primaxin and Flagyl both started on 11/17. 11/19: HIV screen negative, Hep panel negative. Bands 26 today. 11/17: Changed to IV Primaxin 500mg IV Q6 Follow cultures. Currently blood pressure and HR stable. Nonfebrile. Continue with the IVF, monitor west outputs Status: Acute Pelvic Abscess Assessment & Plan: 12/10: IR consulted for pelvic abscess drainage . Mass has increased from 8.4 x 6.9 x x 6.7 (11/16) to 12 x 15 x 8.5 (12/07). CRYS drain in place. Continues to drain. Status: Acute Anemia of chronic disease Assessment & Plan: Hemoglobin continues to be stable. Continue to monitor Patient was transfused 2 units PRBCs on 12/13/16 S/P transfusion total 2 units PRBCs 12/06 [employer]ER was called on patient 12/04/16 due hypotension. Lasix was discontinued. He was given a fluid bolus, albumin and continued with the 1 unit of PRBCs. Patient was given albumin again today. And will be transfused another unit of PRBCs due to hemoglobin of 7.8. H/H was 7.7/27.4 - Consent retrieved- patient will be transfused 1 unit of PRBCs 11/26: After discussing with Heme/Onc Dr Garcia, since Ferritin is normal ferrlecit will not provide much benefit, will discontinue 11/25: Will start Ferrlecit 125mg iv daily after surgical procedure 11/25: Hgb stable at 8.6. Status: Acute Pleural Effusions Assessment & Plan: Repeated CXR 12/10/16 which is unchanged from previous on 12/06, bilateral pleural effusions R>L are stable. Repeat CXR (12/06) shows: Decreased bilateral pleural effusion. Probable linear atelectasis at left base. 12/07 CXR 12/02 compared to 11/15 --> B/L pleural effusions R>L. Was placed on lasix 20mg IVP Q12. Pulmonology consulted, Dr. Mccormick - patient is for thoracentesis. IR reported not enough fluid for thoracentesis. 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 12/06 C diff negative - Immodium added Stool culture negative for salmonella, shigella, campylobacter Stool leukocytes negative Ova and parasites not seen S/P RIJ Portacath insertion (12/03), s/p exploratory laparotomy (11/26) POD#10, w/ findings of unresectable rectosigmoid mass. 12/02/16 POD #6; Surgery will remove abdominal incision jody on POD #10. Surgery reconsulted for portacath placement. NPO past midnight tonight for OR tomorrow morning. 11/30/16: POD # 4: As per conversation with Dr. Lake Harris on 11/29/16, patient has decided to be DNR/DNI 11/29/16: POD #3. Patient is still undecided concerning further management. If he decides to proceed then he will need a Chemo Port placed. He has signed DNR/ DNI. I discussed patient's decision concerning further treatment with Dr. Willow Garcia on the night of 11/28/1611/28: s/p exploratory laparotomy POD2, w/ findings of unresectable rectosigmoid mass. Patient stated today he does not want the chemoport, he said he wants time to think about it. Patient appears tired and he does not want to make sudden decisions. No morning labs, blood draw was difficult this morning due to poor vein access. 11/27: s/p exploratory laparotomy POD1, w/ findings of unresectable rectosigmoid mass. Per surgery note, patient will need a portacath placement, time and date to be determined. Will stop heparin drip (tx for RUE deep vein thrombosis) 4 hours prior to portacath placement procedure. 11/26: Per surgical coder, the surgery today to resect patient's sigmoid mass was halted after it was determined the mass was too large/firm for removal. The patient will be treated with a neoadjuvant with hopes of shrinking the size of the tumor with possible surgery for removal at a later date. Patient was sent to ICU post OR for monitoring. 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 Due to lovenox longer half life, therapeutic lovenox was discontinued and heparin was started. Heparin 8000u iv bolus was given and heparin drip was started at 18u/kg/hr. This drip will be stopped at exactly 5am, 4 hours before surgery. 11/21: Pt s/p cystoscopy today. Patient found to have invasion to dome of urinary bladder. Surgery to plan for surgery some time next week 11/21: Per GI, Abdominal U/S obtained to rule out SV thrombosis given presence of gastroesopahgeal varices seen on endoscopic examination -> Abdominal U/S: 1. Hepatocellular disease without focal hepatic mass. 2. Patent portal venous system including splenic vein. 3. Cholelithiasis. No sonographic evidence of acute cholecystitis. 4. Cystic mass in the head of the pancreas. Remainder the pancreas is not visualized. 11/21: PICC placed today by IR DR Armando. 11/20: s/p upper EUS: "LA grade C erosive esophagitis. 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 75mm x 65mm psedocyst seen in pancreatic body, fine needle aspiration for fluid performed. Varices were visualized endosonographically in fundus of stomach". Will f/u cystology and CEA levels. 11/20: s/p venous duplex of upper extremities: "right: acute thrombosis of right subclavian, axillary and brachial veins with severe reduction of venous return. left: acute thrombosis of left cephatlic vein with severe reduction of venous return". Therapeutic lovenox started -> 90mg q12 sc. 11/20: s/p venous duplex of lower extremeties: negative 11/19: GI to perform EUS tomorrow. Advanced diet to liquid - will advance as tolerated. B/l upper and lower extremity duplex scans were ordered today. 11/18: Patient is s/p EGD/Colonoscopy. A 10cm partially obstructing sigmoid mass was seen and biopsied. Multiple polyps were seen and resected. Heme/Onc, Dr Garcia has been consulted, we will follow up with his recommendations. CT chest abdomen and pelvis findings as noted: suspected sigmoid and proximal rectum mass lesion without evidence of high grade bowel obstruction; suspected abscess formation; cystic mass lesion noted at pancreas with surrounding fat stranding of the pancreatic tail; large gallstones without evidence of acute cholecystitis GI consult (Dr. Srivastava)---> Help appreciated General Surgery Consult (Dr. Amin)----> Help appreciated Urology Consult (Dr. Jon)----> Help appreciated Status: Acute Pancreatic lesion Assessment & Plan: GI outpatient follow-up 11/26: Pancreatic cyst FNA negative for malignant cells per cytology report. 11/25: Per pharmacy laboratory technician, EUS performed on 11/20 sampled pancreatic cyst fluid with diagnostic studies ordered for ptf amylase and ptfCEA only 11/20: Upper EUS performed today: "75mm x 65mm psedocyst seen in pancreatic body , fine needle aspiration for fluid performed 11/18: CT abd/pelvis shows cystic mass lesion at pancreas with fat stranding of pacreatic tail. Lipase level and lipid panel was ordered today. 11/17: CA 19-9 wnl Status: Acute Acute deep vein thrombosis (DVT) of right upper extremity Assessment & Plan: Continue therapeutic Lovenox at 90 mg SC Q12H 11/29: Heparin Drip was discontinued on 11/28/16 as PTT could not be measured secondary to inability to draw blood from edematous arms and could not draw blood from left arm PICC for the PTT level due to the Heprin Drip being infused through the PICC. Therefore patient was restarted on therapeutic Lovenox at 90 mg SC Q12H 11/27: Heparin drip restarted at 18u/kg/hr. Heparin bolus 8,000u given prior to start of drip. 11/26: Per surgery, plan is to restart anticoagulant tomorrow morning Status: Acute Uncontrolled diabetes mellitus Assessment & Plan: Levemir 15 units SC HS---> DC due to continue hypoglycemic events and decreased appetite. Recent HgbA1C: 11.5 (11/20/16) Accuchecks Aspart ISS - low Status: Chronic Esophageal abrasion Assessment & Plan: 11/18: Per endoscopy report * Ulcerated mucosa in the lower third of the esophagus was seen and biopsied. Pathology negative for h pylori. * Patient is on Protonix 40 mg PO BID. Status: Acute Cholelithiasis Assessment & Plan: GI outpatient follow-up 11/18: CT abd/pelvis shows large gallstones without evidence of acute cholecystitis. Denies abd pain Status: Acute Abnormal cardiovascular stress test Assessment & Plan: Cardiology outpatient follow-up 11/25: Nuclear Stress Test: Defect in mid-anteroseptal wall, defect in basal inferoseptal wall, fixed apical defect old IA, small defect inferior wall 11/25: ECHO: left ventricle systolic function is normal. EF is 50-55%. Status: Acute Major Depressive Disorder Assessment & Plan: Dr. Loredo consulted, help appreciated Zoloft 50mg PO daily Psychoeducation Status: Acute VRE + Urine _ RESOLVED Assessment & Plan: REPEAT urine cultures 12/10/16 negative x 3 days Urine culture from west 12/06 shows UTI +VRE Dr. Burns ID informed Start Ampicillin 2 grams IVPB Q6 hours (started 12/08), On Primaxin 400mg IVPB Q6 hours (started 12/06) Contact precautions CHANGE OF WEST 12/10/16 Status: RESOLVED Prophylactic measure Assessment & Plan: Protonix 40 mg PO BID Lovenox 90mg IV q12H Florastor PO BID Ambien 5 mg PO HS Marinol PO daily Physical Therapy started on 11/29/16 Status: Acute Disposition: Patient will be discharged home once medically stable and ABLE TO AMBULATE with wheelchair, walker or cane and instructed to follow up with the [facility] for a referral for Dr. Garcia to have outpatient chemotherapy. DW Rafael Stoddard DO, PGY-1 <Blanco Rivera M - Last Filed: 12/18/16 14:36> Objective - Vital Signs/Intake and Output Vital Signs (last 24 hours): Temp Pulse Resp BP Pulse Ox 97.1 F L 95 H 20 106/71 98 12/18/16 08:30 12/18/16 08:30 12/18/16 08:30 12/18/16 08:30 12/18/16 08:30 Intake and Output: 12/18/16 12/18/16 06:59 18:59 Intake Total 1000 Output Total 650 Balance 350 - Medications Medications: Current Medications Cholestyramine Resin (Questran) 4 gm PO Q12 [facility] Last Admin: 12/18/16 12:00 Dose: 4 gm Dextrose (Dextrose 50% Inj) 0 ml IV STAT PRN; Protocol PRN Reason: Hyglycemia Protocol Last Admin: 12/12/16 17:32 Dose: 50 ml Dronabinol (Marinol) 2.5 mg PO BID [facility] Last Admin: 12/18/16 10:17 Dose: 2.5 mg Enoxaparin Sodium (Lovenox) 90 mg SC Q12 [facility] Last Admin: 12/18/16 10:18 Dose: 90 mg Gabapentin (Neurontin) 100 mg PO TID [facility] Last Admin: 12/18/16 13:18 Dose: 100 mg Hydromorphone HCl (Dilaudid) 0.5 mg IVP Q4H PRN PRN Reason: Pain, severe (8-10) Hydroxyzine HCl (Atarax) 25 mg PO Q6 PRN PRN Reason: Anxiety Imipenem/Cilastatin Sodium 500 (mg/ Sodium Chloride) 100 mls @ 100 mls/hr IVPB Q6H [facility] Last Admin: 12/18/16 12:21 Dose: 100 mls/hr Gentamicin Sulfate 80 mg/ (Sodium Chloride) 102 mls @ 100 mls/hr IVPB Q12H [facility] Last Admin: 12/18/16 10:18 Dose: 100 mls/hr Ampicillin 2 gm/ Sodium (Chloride) 100 mls @ 50 mls/hr IVPB Q6H [facility] Last Admin: 12/18/16 13:18 Dose: 50 mls/hr Insulin Aspart (Novolog) 0 unit SC ACHS [facility] PRN Reason: Protocol Last Admin: 12/18/16 12:26 Dose: 2 unit Loperamide HCl (Imodium) 2 mg PO QID PRN PRN Reason: Diarrhea Last Admin: 12/13/16 09:27 Dose: 2 mg Midodrine (Proamatine) 2.5 mg PO TID [facility] Last Admin: 12/18/16 13:18 Dose: 2.5 mg Morphine Sulfate (Morphine) 2 mg IVP Q4 PRN PRN Reason: Pain, moderate (4-7) Ondansetron HCl (Zofran Inj) 4 mg IVP Q6H PRN PRN Reason: Nausea/Vomiting Last Admin: 11/28/16 12:06 Dose: 4 mg Pantoprazole Sodium (Protonix Ec Tab) 40 mg PO DAILY [facility] Last Admin: 12/18/16 10:17 Dose: 40 mg Saccharomyces Boulardii (Florastor) 250 mg PO BID [facility] Last Admin: 12/18/16 10:17 Dose: 250 mg Sertraline HCl (Zoloft) 50 mg PO DAILY [facility] Last Admin: 12/18/16 10:17 Dose: 50 mg Zolpidem Tartrate (Ambien) 5 mg PO HS PRN PRN Reason: Insomnia Last Admin: 12/03/16 21:31 Dose: 5 mg - Labs Labs: 12/18/16 07:08 12/18/16 07:08 PT 15.0 SECONDS (9.7-12.2) H 12/03/16 07:08 INR 1.3 12/03/16 07:08 APTT 37 SECONDS (21-34) H 12/03/16 07:08 Attending/Attestation - Attestation I have personally seen and examined this patient.: Yes I have fully participated in the care of the patient.: Yes I have reviewed all pertinent clinical information, including history, physical exam and plan: Yes Notes (Text): 12/18/16 14:34 Patient was seen and examined at bedside with the resident Patient complains of diarrhea States that he is feeling generally very weak We will continue antibiotic management for VRE bacteremia and the urinary tract infection We will add Questran today for diarrhea Follow-up blood cultures and urine cultures I discussed the plan of care with the resident and agree with the history and physical and assessment/plan documented.
[2016-12-18 07:27] LABS: BASO % 0.1 % (0.0-2.0); EOS % 0.1 % (0.0-4.0); HEMATOCRIT 29.6 % (35.0-51.0); LYMPH # 0.9 K/uL (1.0-4.3); LYMPH % 9.3 % (20.0-40.0); MEAN CELL VOLUME 83.6 fL (80.0-94.0); MEAN CORPUSCULAR HEMOGLOBIN 27.1 pg (27.0-31.0); MEAN CORPUSCULAR HGB CONC 32.5 g/dL (33.0-37.0); MEAN PLATELET VOLUME 8.6 fL (7.2-11.7); MONO # 0.9 K/uL (0.0-0.8); PLATELET COUNT 233 K/uL (130-400); RED CELL DISTRIBUTION WIDTH 20.9 % (11.5-14.5); WHITE BLOOD COUNT 10.1 K/uL (4.8-10.8)
[2016-12-18 07:30] LABS: CHLORIDE 104 mmol/L (98-107); SODIUM 135 mmol/L (132-148)
[2016-12-18 07:31] LABS: POTASSIUM 3.5 mmol/L (3.6-5.2)
[2016-12-18 07:32] LABS: GFR AFRICAN-AMERICAN > 60
[2016-12-18 07:33] LABS: ALB/GLOB RATIO 0.6 (1.0-2.1); ALKALINE PHOSPHATASE 182 U/L (38-126); ALT/SGPT 29 U/L (21-72); AST/SGOT 12 U/L (17-59); BILIRUBIN,TOTAL 0.7 mg/dL (0.2-1.3); BLOOD UREA NITROGEN 15 mg/dL (9-20); CARBON DIOXIDE 24 mmol/L (22-30); GLUCOSE,RANDOM 166 mg/dL (75-110); PHOSPHOROUS 3.5 mg/dL (2.5-4.5); TOTAL PROTEIN 4.2 g/dL (6.3-8.3)
[2016-12-18 07:34] LABS: CALCIUM 6.6 mg/dl (8.6-10.4); MAGNESIUM 1.7 mg/dL (1.6-2.3)
[2016-12-18] MEDS: (Novolog) Insulin Aspart, Recombinant 100 u/ml 10 ml vial SC SCH ×4 (08:25→22:02)
[2016-12-18 09:37] LABS: EOSINOPHIL 1 % (0-4); NEUTROPHIL 69 % (50-75); TOTAL CELLS COUNTED 100
[2016-12-18] MEDS ORDERED: HYDROmorphone 0.5 mg/0.5 ml ISec IVP PRN (09:48)
[2016-12-18] MEDS ORDERED: Potassium Chloride 20 mEq ER Tab PO ONE (10:00)
[2016-12-18] MEDS: Saccharomyces Boulardi 250 mg Cap PO SCH ×2 (10:17→19:39)
[2016-12-18] MEDS: Pantoprazole 40 mg EC Tab PO SCH (10:17)
[2016-12-18] MEDS: Enoxaparin 120 mg Syringe SC SCH ×2 (10:18→21:54)
[2016-12-18] MEDS: Cholestyramine 4 gm/Pkt UD PO SCH ×2 (12:00→21:54)
--- NOTE | 2016-12-18 16:13 | CP.PCM.PN ---
Subjective - Date & Time of Evaluation Date of Evaluation: 12/18/16 Time of Evaluation: 15:57 - Subjective Subjective: Patient reports occasional pain controlled on current pain meds. Denies acute events Objective - Vital Signs/Intake and Output Vital Signs (last 24 hours): Temp Pulse Resp BP Pulse Ox 97.1 F L 95 H 20 106/71 98 12/18/16 08:30 12/18/16 08:30 12/18/16 08:30 12/18/16 08:30 12/18/16 08:30 Intake and Output: 12/18/16 12/18/16 06:59 18:59 Intake Total 1000 Output Total 650 Balance 350 - Medications Medications: Current Medications Cholestyramine Resin (Questran) 4 gm PO Q12 [facility] Last Admin: 12/18/16 12:00 Dose: 4 gm Dextrose (Dextrose 50% Inj) 0 ml IV STAT PRN; Protocol PRN Reason: Hyglycemia Protocol Last Admin: 12/12/16 17:32 Dose: 50 ml Dronabinol (Marinol) 2.5 mg PO BID [facility] Last Admin: 12/18/16 10:17 Dose: 2.5 mg Enoxaparin Sodium (Lovenox) 90 mg SC Q12 [facility] Last Admin: 12/18/16 10:18 Dose: 90 mg Gabapentin (Neurontin) 100 mg PO TID [facility] Last Admin: 12/18/16 13:18 Dose: 100 mg Hydromorphone HCl (Dilaudid) 0.5 mg IVP Q4H PRN PRN Reason: Pain, severe (8-10) Hydroxyzine HCl (Atarax) 25 mg PO Q6 PRN PRN Reason: Anxiety Imipenem/Cilastatin Sodium 500 (mg/ Sodium Chloride) 100 mls @ 100 mls/hr IVPB Q6H [facility] Last Admin: 12/18/16 12:21 Dose: 100 mls/hr Gentamicin Sulfate 80 mg/ (Sodium Chloride) 102 mls @ 100 mls/hr IVPB Q12H [facility] Last Admin: 12/18/16 10:18 Dose: 100 mls/hr Ampicillin 2 gm/ Sodium (Chloride) 100 mls @ 50 mls/hr IVPB Q6H [facility] Last Admin: 12/18/16 13:18 Dose: 50 mls/hr Insulin Aspart (Novolog) 0 unit SC ACHS DOREEN PRN Reason: Protocol Last Admin: 12/18/16 12:26 Dose: 2 unit Loperamide HCl (Imodium) 2 mg PO QID PRN PRN Reason: Diarrhea Last Admin: 12/13/16 09:27 Dose: 2 mg Midodrine (Proamatine) 2.5 mg PO TID [facility] Last Admin: 12/18/16 13:18 Dose: 2.5 mg Morphine Sulfate (Morphine) 2 mg IVP Q4 PRN PRN Reason: Pain, moderate (4-7) Ondansetron HCl (Zofran Inj) 4 mg IVP Q6H PRN PRN Reason: Nausea/Vomiting Last Admin: 11/28/16 12:06 Dose: 4 mg Pantoprazole Sodium (Protonix Ec Tab) 40 mg PO DAILY [facility] Last Admin: 12/18/16 10:17 Dose: 40 mg Saccharomyces Boulardii (Florastor) 250 mg PO BID [facility] Last Admin: 12/18/16 10:17 Dose: 250 mg Sertraline HCl (Zoloft) 50 mg PO DAILY [facility] Last Admin: 12/18/16 10:17 Dose: 50 mg Zolpidem Tartrate (Ambien) 5 mg PO HS PRN PRN Reason: Insomnia Last Admin: 12/03/16 21:31 Dose: 5 mg - Labs Labs: 12/18/16 07:08 12/18/16 07:08 PT 15.0 SECONDS (9.7-12.2) H 12/03/16 07:08 INR 1.3 12/03/16 07:08 APTT 37 SECONDS (21-34) H 12/03/16 07:08 - Constitutional Appears: Chronically Ill - Head Exam Head Exam: ATRAUMATIC, NORMAL INSPECTION, NORMOCEPHALIC - Eye Exam Eye Exam: EOMI, Normal appearance, PERRL Pupil Exam: NORMAL ACCOMODATION - ENT Exam ENT Exam: Mucous Membranes Moist, Normal Exam - Neck Exam Neck Exam: Normal Inspection - Respiratory Exam Respiratory Exam: Decreased Breath Sounds - Cardiovascular Exam Cardiovascular Exam: Tachycardia, REGULAR RHYTHM - GI/Abdominal Exam GI & Abdominal Exam: Distended, Firm, Hypoactive Bowel Sounds - Rectal Exam Rectal Exam: Deferred - Exam Additional comments: Huerta cath - Extremities Exam Extremities Exam: Pedal Edema - Back Exam Back Exam: CVA tenderness (L) - Neurological Exam Neurological Exam: Alert, Oriented x3 Neuro motor strength exam: Left Upper Extremity: 2/1, Right Upper Extremity: 2/1 , Left Lower Extremity: 2/1, Right Lower Extremity: 2/1 - Psychiatric Exam Psychiatric exam: Flat Affect - Skin Skin Exam: Mottled, Pallor Assessment and Plan - Assessment and Plan (Free Text) Assessment: Patient examined in bed in no acute distress. Patient is alert with affect that is flat. Abdomen is distended, firn to right lower quadrant, bowel sounds diminihed. JPs X 2 to RLQ draining cloudy drainage. Patient is incontinent of bowel. Huerta cath at bed side, urine concentrated and cloudy as well. There is significant edema to right arm and hand. left hand edema much less since yesterday. Patient reports good appetite, denies nausea/vomiting. Patient reports abdominal pain controlled on current meds. Patient's 8 yo daughter came to visit yesterday with her grand parents. They live in [place]. Patient's daughter moved there 1 year ago after her mother . I visited patient twice yesterday with intention to discuss goals of care while family was there but patient did not want to talk about it in front of his daughter. " I want her to be happy" he said. Today I returned to patient and we discussed goals of care. Patient is fully aware of his condition and Chemo Tx and Sx not being recommended due to advanced metastatic disease. Patient has no health insurance and is not able to provide finances for the fpc NH placement. I jose j my concerns about max care needed for patient. he agreed and said that his girlfriend could come for few hours a day. Further we discussed other options such as Hospice care at home and possibility of his girlfriend moving in with patient. I clearly explained to patient the meaning of hospice and kind of care would be given to him. He agreed. Patient asked a few times to be sent home. he stated " I just want to go back home". We agreed to meet again tomorrow at 11 am when his girlfriend comes and further discuss goals of care Impression * Patient is fully aware of his terminal illness * Patient shows no emotions when talks about his condition, the affect is flat * Patient is turned to God now and wants to " comply with God's wishes". * Patient understand limited options for his care due to advanced illness and agreed with hospice at home * There is a lack of support at home, patient lives alone Suggestion * Continue pain management * Would call for Home Hospice evaluation * I will meet again tomorrow with patient and his girlfriend and discuss possibility of her taking patient at home in addition to services provided by the hospice.
[2016-12-19] MEDS: (Novolog) Insulin Aspart, Recombinant 100 u/ml 10 ml vial SC SCH ×4 (07:58→22:10)
[2016-12-19] MEDS: Pantoprazole 40 mg EC Tab PO SCH (10:39)
[2016-12-19] MEDS: Saccharomyces Boulardi 250 mg Cap PO SCH ×2 (10:40→17:30)
[2016-12-19] MEDS: Enoxaparin 120 mg Syringe SC SCH ×2 (10:40→22:07)
[2016-12-19] MEDS: Cholestyramine 4 gm/Pkt UD PO SCH ×2 (10:40→22:09)
--- NOTE | 2016-12-19 13:34 | CP.PCM.PN ---
<Simin Hall - Last Filed: 12/19/16 13:30> Subjective - Date & Time of Evaluation Date of Evaluation: 12/19/16 Time of Evaluation: 07:00 - Subjective Subjective: Medicine note for Dr. Rivera Patient seen and examined at bedside. Patient reports he feels the same. Continues to have loose bowel movements. Patient has spoken extensively with palliative care. Plan is for home hospice or hospice in [place]. Denied any fever, chills, SOB, cough, chest pain, abdominal pain, n/v, or urinary symptoms. Objective - Vital Signs/Intake and Output Vital Signs (last 24 hours): Temp Pulse Resp BP Pulse Ox 98.2 F 121 H 96 H 114/63 96 12/19/16 08:58 12/19/16 08:58 12/19/16 08:58 12/19/16 08:58 12/19/16 08:46 Intake and Output: 12/19/16 12/19/16 06:59 18:59 Intake Total 400 Output Total 1300 Balance -900 - Medications Medications: Current Medications Cholestyramine Resin (Questran) 4 gm PO Q12 [facility] Last Admin: 12/19/16 10:40 Dose: 4 gm Dextrose (Dextrose 50% Inj) 0 ml IV STAT PRN; Protocol PRN Reason: Hyglycemia Protocol Last Admin: 12/12/16 17:32 Dose: 50 ml Dronabinol (Marinol) 2.5 mg PO BID [facility] Last Admin: 12/19/16 10:40 Dose: 2.5 mg Enoxaparin Sodium (Lovenox) 90 mg SC Q12 [facility] Last Admin: 12/19/16 10:40 Dose: 90 mg Gabapentin (Neurontin) 100 mg PO TID [facility] Last Admin: 12/19/16 10:39 Dose: 100 mg Hydromorphone HCl (Dilaudid) 0.5 mg IVP Q4H PRN PRN Reason: Pain, severe (8-10) Last Admin: 12/19/16 07:58 Dose: 0.5 mg Hydroxyzine HCl (Atarax) 25 mg PO Q6 PRN PRN Reason: Anxiety Imipenem/Cilastatin Sodium 500 (mg/ Sodium Chloride) 100 mls @ 100 mls/hr IVPB Q6H [facility] Last Admin: 12/19/16 06:53 Dose: 100 mls/hr Gentamicin Sulfate 80 mg/ (Sodium Chloride) 102 mls @ 100 mls/hr IVPB Q12H [facility] Last Admin: 12/19/16 10:40 Dose: 100 mls/hr Ampicillin 2 gm/ Sodium (Chloride) 100 mls @ 50 mls/hr IVPB Q6H [facility] Last Admin: 12/19/16 08:10 Dose: 50 mls/hr Insulin Aspart (Novolog) 0 unit SC ACHS DOREEN PRN Reason: Protocol Last Admin: 12/19/16 07:58 Dose: 2 unit Loperamide HCl (Imodium) 2 mg PO QID PRN PRN Reason: Diarrhea Last Admin: 12/13/16 09:27 Dose: 2 mg Midodrine (Proamatine) 2.5 mg PO TID [facility] Last Admin: 12/19/16 10:40 Dose: 2.5 mg Morphine Sulfate (Morphine) 2 mg IVP Q4 PRN PRN Reason: Pain, moderate (4-7) Ondansetron HCl (Zofran Inj) 4 mg IVP Q6H PRN PRN Reason: Nausea/Vomiting Last Admin: 11/28/16 12:06 Dose: 4 mg Pantoprazole Sodium (Protonix Ec Tab) 40 mg PO DAILY [facility] Last Admin: 12/19/16 10:39 Dose: 40 mg Saccharomyces Boulardii (Florastor) 250 mg PO BID [facility] Last Admin: 12/19/16 10:40 Dose: 250 mg Sertraline HCl (Zoloft) 50 mg PO DAILY [facility] Last Admin: 12/19/16 10:40 Dose: 50 mg Zolpidem Tartrate (Ambien) 5 mg PO HS PRN PRN Reason: Insomnia Last Admin: 12/03/16 21:31 Dose: 5 mg - Labs Labs: 12/18/16 07:08 12/18/16 07:08 PT 15.0 SECONDS (9.7-12.2) H 12/03/16 07:08 INR 1.3 12/03/16 07:08 APTT 37 SECONDS (21-34) H 12/03/16 07:08 - Constitutional Appears: No Acute Distress, Chronically Ill - Head Exam Head Exam: NORMAL INSPECTION, NORMOCEPHALIC - Eye Exam Eye Exam: EOMI, Normal appearance, PERRL Pupil Exam: NORMAL ACCOMODATION - Respiratory Exam Respiratory Exam: Decreased Breath Sounds - Cardiovascular Exam Cardiovascular Exam: REGULAR RHYTHM - GI/Abdominal Exam GI & Abdominal Exam: Distended, Soft, Mass, Normal Bowel Sounds - Extremities Exam Extremities Exam: Pedal Edema Additional comments: right arm less swollen than previous week ( R UE DVT) LEFT ARM PICC - Neurological Exam Neurological Exam: Alert, Awake, Oriented x3 - Psychiatric Exam Psychiatric exam: Depressed, Flat Affect - Skin Skin Exam: Dry, Intact, Normal Color, Warm Assessment and Plan - Assessment and Plan (Free Text) Plan: Disposition: Family is at bedside. Forensic Analyst was used Brittni # [id number] to explain the patient's condition and prognosis as well as to answer any of their questions. Patient was made DNR/DNI during this admission. HOME HOSPICE VS HOSPICE IN [facility] Assessment & Plan: Continues to be tachycardic, normotensive with few episodes of hypotension. Afebrile since 12/06/16 Blood and urine cultures 12/17/16, + VRE in one blood vial. CT abd/pelvis 12/07 showed enlargement of pelvic abscess, will consult IR for possible draining of abscess. 12/10: IR consulted for pelvic abscess drainage. Mass has increased from 8.4 x 6.9 x x 6.7 (11/16) to 12 x 15 x 8.5 (12/07). STILL IN PLACE!! 12/06/16 Blood culture + ESBL 12/06/16 Urine Culture + VRE - On Primaxin 400mg IVPB Q6 hours (started 12/06) - Start Ampicillin 2grams IVPB Q6 hours (started 12/08) - Was given 2 doses of Gentamicin on 12/07 and 12/06 12/06: Tachycardia, hypotensive, with bandemia at 27. Pt was jesus cultured. DC Rocephin. Was given a stat dose of Gentamycin and restarted on Primaxin. Possible source PICC line or RIJ Portacath. 11/30/17: As per ID, Repeat blood culture was negative, Primaxin and Flagyl was discontinued (11/29/16). Ceftriaxone 2 gm IV Q24H for 14 days starting 11/29/16 11/29/16: E. coli in blood culture on 11/15/16. Repeat blood culture on 11/23/16 was finalized as negative. I will speak with ID Dr. Burns concerning how much longer we need to continue the Primaxin and Flagyl 11/27: wbc trending down. afebrile. will continue primaxin and flagyl and monitor bands and wbc. Blood cultures negative after 3 days. 11/26: Patient in ICU for monitoring post OR, Bands 12 today, will monitor. 11/25: Blood cultures are negative after [address] Burns, con't tx for minimum of 14 days; Primaxin and Flagyl both started on 11/17. 11/19: HIV screen negative, Hep panel negative. Bands 26 today. 11/17: Changed to IV Primaxin 500mg IV Q6 Follow cultures. Currently blood pressure and HR stable. Nonfebrile. Continue with the IVF, monitor lowe outputs Status: Acute Pelvic Abscess Assessment & Plan: 12/10: IR consulted for pelvic abscess drainage . Mass has increased from 8.4 x 6.9 x x 6.7 (11/16) to 12 x 15 x 8.5 (12/07). CRYS drain in place. Continues to drain. Status: Acute Anemia of chronic disease Assessment & Plan: Hemoglobin continues to be stable. Continue to monitor Patient was transfused 2 units PRBCs on 12/13/16 S/P transfusion total 2 units PRBCs 12/06 MARINE ELECTRICIAN was called on patient 12/04/16 due hypotension. Lasix was discontinued. He was given a fluid bolus, albumin and continued with the 1 unit of PRBCs. Patient was given albumin again today. And will be transfused another unit of PRBCs due to hemoglobin of 7.8. H/H was 7.7/27.4 - Consent retrieved- patient will be transfused 1 unit of PRBCs 11/26: After discussing with Heme/Onc Dr Garcia, since Ferritin is normal ferrlecit will not provide much benefit, will discontinue 11/25: Will start Ferrlecit 125mg iv daily after surgical procedure 11/25: Hgb stable at 8.6. Status: Acute Pleural Effusions Assessment & Plan: Repeated CXR 12/10/16 which is unchanged from previous on 12/06, bilateral pleural effusions R>L are stable. Repeat CXR (12/06) shows: Decreased bilateral pleural effusion. Probable linear atelectasis at left base. 12/07 CXR 12/02 compared to 11/15 --> B/L pleural effusions R>L. Was placed on lasix 20mg IVP Q12. Pulmonology consulted, Dr. Mccormick - patient is for thoracentesis. IR reported not enough fluid for thoracentesis. 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 12/06 C diff negative - Immodium added Stool culture negative for salmonella, shigella, campylobacter Stool leukocytes negative Ova and parasites not seen S/P RIJ Portacath insertion (12/03), s/p exploratory laparotomy (11/26) POD#10, w/ findings of unresectable rectosigmoid mass. 12/02/16 POD #6; Surgery will remove abdominal incision jody on POD #10. Surgery reconsulted for portacath placement. NPO past midnight tonight for OR tomorrow morning. 11/30/16: POD # 4: As per conversation with Dr. Lake Harris on 11/29/16, patient has decided to be DNR/DNI 11/29/16: POD #3. Patient is still undecided concerning further management. If he decides to proceed then he will need a Chemo Port placed. He has signed DNR/ DNI. I discussed patient's decision concerning further treatment with Dr. Willow Garcia on the night of 11/28/1611/28: s/p exploratory laparotomy POD2, w/ findings of unresectable rectosigmoid mass. Patient stated today he does not want the chemoport, he said he wants time to think about it. Patient appears tired and he does not want to make sudden decisions. No morning labs, blood draw was difficult this morning due to poor vein access. 11/27: s/p exploratory laparotomy POD1, w/ findings of unresectable rectosigmoid mass. Per surgery note, patient will need a portacath placement, time and date to be determined. Will stop heparin drip (tx for RUE deep vein thrombosis) 4 hours prior to portacath placement procedure. 11/26: Per surgical services asst, the surgery today to resect patient's sigmoid mass was halted after it was determined the mass was too large/firm for removal. The patient will be treated with a neoadjuvant with hopes of shrinking the size of the tumor with possible surgery for removal at a later date. Patient was sent to ICU post OR for monitoring. 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 Due to lovenox longer half life, therapeutic lovenox was discontinued and heparin was started. Heparin 8000u iv bolus was given and heparin drip was started at 18u/kg/hr. This drip will be stopped at exactly 5am, 4 hours before surgery. 11/21: Pt s/p cystoscopy today. Patient found to have invasion to dome of urinary bladder. Surgery to plan for surgery some time next week 11/21: Per GI, Abdominal U/S obtained to rule out SV thrombosis given presence of gastroesopahgeal varices seen on endoscopic examination -> Abdominal U/S: 1. Hepatocellular disease without focal hepatic mass. 2. Patent portal venous system including splenic vein. 3. Cholelithiasis. No sonographic evidence of acute cholecystitis. 4. Cystic mass in the head of the pancreas. Remainder the pancreas is not visualized. 11/21: PICC placed today by IR DR Armando. 11/20: s/p upper EUS: "LA grade C erosive esophagitis. 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 75mm x 65mm psedocyst seen in pancreatic body, fine needle aspiration for fluid performed. Varices were visualized endosonographically in fundus of stomach". Will f/u cystology and CEA levels. 11/20: s/p venous duplex of upper extremities: "right: acute thrombosis of right subclavian, axillary and brachial veins with severe reduction of venous return. left: acute thrombosis of left cephatlic vein with severe reduction of venous return". Therapeutic lovenox started -> 90mg q12 sc. 11/20: s/p venous duplex of lower extremeties: negative 11/19: GI to perform EUS tomorrow. Advanced diet to liquid - will advance as tolerated. B/l upper and lower extremity duplex scans were ordered today. 11/18: Patient is s/p EGD/Colonoscopy. A 10cm partially obstructing sigmoid mass was seen and biopsied. Multiple polyps were seen and resected. Heme/Onc, Dr Garcia has been consulted, we will follow up with his recommendations. CT chest abdomen and pelvis findings as noted: suspected sigmoid and proximal rectum mass lesion without evidence of high grade bowel obstruction; suspected abscess formation; cystic mass lesion noted at pancreas with surrounding fat stranding of the pancreatic tail; large gallstones without evidence of acute cholecystitis GI consult (Dr. Srivastava)---> Help appreciated General Surgery Consult (Dr. Amni)----> Help appreciated Urology Consult (Dr. Jon)----> Help appreciated Status: Acute Pancreatic lesion Assessment & Plan: GI outpatient follow-up 11/26: Pancreatic cyst FNA negative for malignant cells per cytology report. 11/25: Per cath laboratory technician, EUS performed on 11/20 sampled pancreatic cyst fluid with diagnostic studies ordered for ptf amylase and ptfCEA only 11/20: Upper EUS performed today: "75mm x 65mm psedocyst seen in pancreatic body , fine needle aspiration for fluid performed 11/18: CT abd/pelvis shows cystic mass lesion at pancreas with fat stranding of pacreatic tail. Lipase level and lipid panel was ordered today. 11/17: CA 19-9 wnl Status: Acute Acute deep vein thrombosis (DVT) of right upper extremity Assessment & Plan: Continue therapeutic Lovenox at 90 mg SC Q12H 11/29: Heparin Drip was discontinued on 11/28/16 as PTT could not be measured secondary to inability to draw blood from edematous arms and could not draw blood from left arm PICC for the PTT level due to the Heprin Drip being infused through the PICC. Therefore patient was restarted on therapeutic Lovenox at 90 mg SC Q12H 11/27: Heparin drip restarted at 18u/kg/hr. Heparin bolus 8,000u given prior to start of drip. 11/26: Per surgery, plan is to restart anticoagulant tomorrow morning Status: Acute Uncontrolled diabetes mellitus Assessment & Plan: Levemir 15 units SC HS---> DC due to continue hypoglycemic events and decreased appetite. Recent HgbA1C: 11.5 (11/20/16) Accuchecks Aspart ISS - low Status: Chronic Esophageal abrasion Assessment & Plan: 11/18: Per endoscopy report * Ulcerated mucosa in the lower third of the esophagus was seen and biopsied. Pathology negative for h pylori. * Patient is on Protonix 40 mg PO BID. Status: Acute Cholelithiasis Assessment & Plan: GI outpatient follow-up 11/18: CT abd/pelvis shows large gallstones without evidence of acute cholecystitis. Denies abd pain Status: Acute Abnormal cardiovascular stress test Assessment & Plan: Cardiology outpatient follow-up 11/25: Nuclear Stress Test: Defect in mid-anteroseptal wall, defect in basal inferoseptal wall, fixed apical defect old MS, small defect inferior wall 11/25: ECHO: left ventricle systolic function is normal. EF is 50-55%. Status: Acute Major Depressive Disorder Assessment & Plan: Dr. Loredo consulted, help appreciated Zoloft 50mg PO daily Psychoeducation Status: Acute Prophylactic measure Assessment & Plan: Protonix 40 mg PO BID Lovenox 90mg IV q12H Florastor PO BID Ambien 5 mg PO HS Marinol PO daily Physical Therapy started on 11/29/16 Status: Acute DW Rafael Stoddard DO, PGY-1 <Blanco Rivera M - Last Filed: 12/19/16 17:28> Objective - Vital Signs/Intake and Output Vital Signs (last 24 hours): Temp Pulse Resp BP Pulse Ox 98.1 F 91 H 18 102/72 97 12/19/16 16:00 12/19/16 16:00 12/19/16 16:00 12/19/16 16:00 12/19/16 16:00 Intake and Output: 12/19/16 12/19/16 06:59 18:59 Intake Total 400 300 Output Total 1300 300 Balance -900 0 - Medications Medications: Current Medications Cholestyramine Resin (Questran) 4 gm PO Q12 [facility] Last Admin: 12/19/16 10:40 Dose: 4 gm Dextrose (Dextrose 50% Inj) 0 ml IV STAT PRN; Protocol PRN Reason: Hyglycemia Protocol Last Admin: 12/12/16 17:32 Dose: 50 ml Dronabinol (Marinol) 2.5 mg PO BID [facility] Last Admin: 12/19/16 10:40 Dose: 2.5 mg Enoxaparin Sodium (Lovenox) 90 mg SC Q12 [facility] Last Admin: 12/19/16 10:40 Dose: 90 mg Gabapentin (Neurontin) 100 mg PO TID [facility] Last Admin: 12/19/16 14:08 Dose: 100 mg Hydromorphone HCl (Dilaudid) 0.5 mg IVP Q4H PRN PRN Reason: Pain, severe (8-10) Last Admin: 12/19/16 07:58 Dose: 0.5 mg Hydroxyzine HCl (Atarax) 25 mg PO Q6 PRN PRN Reason: Anxiety Imipenem/Cilastatin Sodium 500 (mg/ Sodium Chloride) 100 mls @ 100 mls/hr IVPB Q6H [facility] Last Admin: 12/19/16 12:30 Dose: 100 mls/hr Gentamicin Sulfate 80 mg/ (Sodium Chloride) 102 mls @ 100 mls/hr IVPB Q12H [facility] Last Admin: 12/19/16 10:40 Dose: 100 mls/hr Ampicillin 2 gm/ Sodium (Chloride) 100 mls @ 50 mls/hr IVPB Q6H [facility] Last Admin: 12/19/16 14:09 Dose: 50 mls/hr Insulin Aspart (Novolog) 0 unit SC ACHS DOREEN PRN Reason: Protocol Last Admin: 12/19/16 12:15 Dose: 4 unit Loperamide HCl (Imodium) 2 mg PO QID PRN PRN Reason: Diarrhea Last Admin: 12/13/16 09:27 Dose: 2 mg Midodrine (Proamatine) 2.5 mg PO TID [facility] Last Admin: 12/19/16 14:08 Dose: 2.5 mg Morphine Sulfate (Morphine) 2 mg IVP Q4 PRN PRN Reason: Pain, moderate (4-7) Ondansetron HCl (Zofran Inj) 4 mg IVP Q6H PRN PRN Reason: Nausea/Vomiting Last Admin: 11/28/16 12:06 Dose: 4 mg Pantoprazole Sodium (Protonix Ec Tab) 40 mg PO DAILY [facility] Last Admin: 12/19/16 10:39 Dose: 40 mg Saccharomyces Boulardii (Florastor) 250 mg PO BID [facility] Last Admin: 12/19/16 10:40 Dose: 250 mg Sertraline HCl (Zoloft) 50 mg PO DAILY [facility] Last Admin: 12/19/16 10:40 Dose: 50 mg Zolpidem Tartrate (Ambien) 5 mg PO HS PRN PRN Reason: Insomnia Last Admin: 12/03/16 21:31 Dose: 5 mg - Labs Labs: 12/18/16 07:08 12/18/16 07:08 PT 15.0 SECONDS (9.7-12.2) H 12/03/16 07:08 INR 1.3 12/03/16 07:08 APTT 37 SECONDS (21-34) H 12/03/16 07:08 Attending/Attestation - Attestation I have personally seen and examined this patient.: Yes I have fully participated in the care of the patient.: Yes I have reviewed all pertinent clinical information, including history, physical exam and plan: Yes Notes (Text): 12/19/16 17:27 Patient was seen and examined at bedside with the resident Still complains of diarrhea and generalized weakness Hospice evaluation in progress Discussed the plan of care with the resident and agree with this and been documented.
--- NOTE | 2016-12-19 15:17 | CP.PCM.PN ---
Subjective - Date & Time of Evaluation Date of Evaluation: 12/19/16 Time of Evaluation: 14:58 - Subjective Subjective: Patient admits to generalized weakness and pain to right lower quadrant, at CRYS area. Patient is still having loose stools. Objective - Vital Signs/Intake and Output Vital Signs (last 24 hours): Temp Pulse Resp BP Pulse Ox 98.2 F 121 H 96 H 114/63 96 12/19/16 08:58 12/19/16 08:58 12/19/16 08:58 12/19/16 08:58 12/19/16 08:46 Intake and Output: 12/19/16 12/19/16 06:59 18:59 Intake Total 400 Output Total 1300 Balance -900 - Medications Medications: Current Medications Cholestyramine Resin (Questran) 4 gm PO Q12 [facility] Last Admin: 12/19/16 10:40 Dose: 4 gm Dextrose (Dextrose 50% Inj) 0 ml IV STAT PRN; Protocol PRN Reason: Hyglycemia Protocol Last Admin: 12/12/16 17:32 Dose: 50 ml Dronabinol (Marinol) 2.5 mg PO BID [facility] Last Admin: 12/19/16 10:40 Dose: 2.5 mg Enoxaparin Sodium (Lovenox) 90 mg SC Q12 [facility] Last Admin: 12/19/16 10:40 Dose: 90 mg Gabapentin (Neurontin) 100 mg PO TID [facility] Last Admin: 12/19/16 14:08 Dose: 100 mg Hydromorphone HCl (Dilaudid) 0.5 mg IVP Q4H PRN PRN Reason: Pain, severe (8-10) Last Admin: 12/19/16 07:58 Dose: 0.5 mg Hydroxyzine HCl (Atarax) 25 mg PO Q6 PRN PRN Reason: Anxiety Imipenem/Cilastatin Sodium 500 (mg/ Sodium Chloride) 100 mls @ 100 mls/hr IVPB Q6H [facility] Last Admin: 12/19/16 12:30 Dose: 100 mls/hr Gentamicin Sulfate 80 mg/ (Sodium Chloride) 102 mls @ 100 mls/hr IVPB Q12H [facility] Last Admin: 12/19/16 10:40 Dose: 100 mls/hr Ampicillin 2 gm/ Sodium (Chloride) 100 mls @ 50 mls/hr IVPB Q6H [facility] Last Admin: 12/19/16 14:09 Dose: 50 mls/hr Insulin Aspart (Novolog) 0 unit SC ACHS [facility] PRN Reason: Protocol Last Admin: 12/19/16 12:15 Dose: 4 unit Loperamide HCl (Imodium) 2 mg PO QID PRN PRN Reason: Diarrhea Last Admin: 12/13/16 09:27 Dose: 2 mg Midodrine (Proamatine) 2.5 mg PO TID [facility] Last Admin: 12/19/16 14:08 Dose: 2.5 mg Morphine Sulfate (Morphine) 2 mg IVP Q4 PRN PRN Reason: Pain, moderate (4-7) Ondansetron HCl (Zofran Inj) 4 mg IVP Q6H PRN PRN Reason: Nausea/Vomiting Last Admin: 11/28/16 12:06 Dose: 4 mg Pantoprazole Sodium (Protonix Ec Tab) 40 mg PO DAILY [facility] Last Admin: 12/19/16 10:39 Dose: 40 mg Saccharomyces Boulardii (Florastor) 250 mg PO BID [facility] Last Admin: 12/19/16 10:40 Dose: 250 mg Sertraline HCl (Zoloft) 50 mg PO DAILY [facility] Last Admin: 12/19/16 10:40 Dose: 50 mg Zolpidem Tartrate (Ambien) 5 mg PO HS PRN PRN Reason: Insomnia Last Admin: 12/03/16 21:31 Dose: 5 mg - Labs Labs: 12/18/16 07:08 12/18/16 07:08 PT 15.0 SECONDS (9.7-12.2) H 12/03/16 07:08 INR 1.3 12/03/16 07:08 APTT 37 SECONDS (21-34) H 12/03/16 07:08 - Constitutional Appears: Chronically Ill - Head Exam Head Exam: ATRAUMATIC, NORMAL INSPECTION, NORMOCEPHALIC - Eye Exam Eye Exam: EOMI, Normal appearance, PERRL Pupil Exam: NORMAL ACCOMODATION, PERRL - ENT Exam ENT Exam: Mucous Membranes Dry - Neck Exam Neck Exam: Normal Inspection - Respiratory Exam Respiratory Exam: Decreased Breath Sounds, NORMAL BREATHING PATTERN - Cardiovascular Exam Cardiovascular Exam: Tachycardia, REGULAR RHYTHM - GI/Abdominal Exam GI & Abdominal Exam: Soft, Tenderness - Rectal Exam Rectal Exam: Deferred - Exam Additional comments: Huerta cath - Extremities Exam Extremities Exam: Pedal Edema - Back Exam Back Exam: NORMAL INSPECTION - Neurological Exam Neurological Exam: Alert, Oriented x3 Neuro motor strength exam: Left Upper Extremity: 2/, Right Upper Extremity: 2/ , Left Lower Extremity: 2/, Right Lower Extremity: 2/ - Psychiatric Exam Psychiatric exam: Flat Affect - Skin Skin Exam: Pallor, Warm Assessment and Plan - Assessment and Plan (Free Text) Assessment: Patient examined in bed, looking tired, alert and oriented X 3. Patient is afebrile, tachycardic and hypotenive. There is large edema to LEs and right hand. Albumin low at 1.5. BC +, IV antibiotics on board. Abdomen is soft, tender to touch to area around JPs. Patient is still having loose stools. he is bed ridden and requires max assistance with repositioning for comfort. Huerta at bed side, urine concentrated and cloudy. Family meeting held attended by the patient and his girlfriend at bed side. I have discussed patient's condition with patient yesterday and today I reviewed it with his girlfriend. She admitted being aware of patient's diagnosis and poor prognosis. We discussed placement after discharge. I explained again that no further interventions were advised due to poor condition and that comfort care is what we think would benefit patient at this stage of his disease. The girlfriend said she resided in [place] and was not allowed to bring in any other person, while patient does not have permanent residence. I talked to them about the comfort care offered in [facility] to a alonso patients and they both agreed with it. After crm marketing manager contacting the [facility] we learned that there was not available alonso bed. Patient is Medicaid pending and I contacted Gerardo PATRICIA from [facility] in front of and [employer] asking if he could help patient get into [facility]. Primitivo potter coming to see patient. This was shared with Doctor Miguel and Rafael IVERSON. Impression * This is a very sad case; patient is terminally ill with no family or financial support * The girlfriend is unable to help patient due to her personal housing issues * Patient is Medicaid pending * Patient agreed with [facility] at the institution, his girlfriend supported him * [facility] is evaluating patient for appropriate Hospice placement Suggestion * Comfort care * Pain management * Promote skin integrity
--- NOTE | 2016-12-19 18:16 | CP.PCM.PN ---
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 PICC line to be removed IV zyvox added zoloft d/c'd Cont primaxin/ genta Objective - Vital Signs/Intake and Output Vital Signs (last 24 hours): Temp Pulse Resp BP Pulse Ox 98.1 F 91 H 18 102/72 97 12/19/16 16:00 12/19/16 16:00 12/19/16 16:00 12/19/16 16:00 12/19/16 16:00 Intake and Output: 12/19/16 12/19/16 06:59 18:59 Intake Total 400 300 Output Total 1300 300 Balance -900 0 - Medications Medications: Current Medications Cholestyramine Resin (Questran) 4 gm PO Q12 [facility] Last Admin: 12/19/16 10:40 Dose: 4 gm Dextrose (Dextrose 50% Inj) 0 ml IV STAT PRN; Protocol PRN Reason: Hyglycemia Protocol Last Admin: 12/12/16 17:32 Dose: 50 ml Dronabinol (Marinol) 2.5 mg PO BID [facility] Last Admin: 12/19/16 17:30 Dose: 2.5 mg Enoxaparin Sodium (Lovenox) 90 mg SC Q12 [facility] Last Admin: 12/19/16 10:40 Dose: 90 mg Gabapentin (Neurontin) 100 mg PO TID [facility] Last Admin: 12/19/16 17:30 Dose: 100 mg Hydromorphone HCl (Dilaudid) 0.5 mg IVP Q4H PRN PRN Reason: Pain, severe (8-10) Last Admin: 12/19/16 07:58 Dose: 0.5 mg Hydroxyzine HCl (Atarax) 25 mg PO Q6 PRN PRN Reason: Anxiety Imipenem/Cilastatin Sodium 500 (mg/ Sodium Chloride) 100 mls @ 100 mls/hr IVPB Q6H [facility] Last Admin: 12/19/16 17:33 Dose: 100 mls/hr Gentamicin Sulfate 80 mg/ (Sodium Chloride) 102 mls @ 100 mls/hr IVPB Q12H [facility] Last Admin: 12/19/16 10:40 Dose: 100 mls/hr Ampicillin 2 gm/ Sodium (Chloride) 100 mls @ 50 mls/hr IVPB Q6H [facility] Last Admin: 12/19/16 14:09 Dose: 50 mls/hr Linezolid (Zyvox 600mg/300ml D5w) 600 mg in 300 mls @ 200 mls/hr IVPB Q12 [facility] Insulin Aspart (Novolog) 0 unit SC ACHS [facility] PRN Reason: Protocol Last Admin: 12/19/16 16:37 Dose: Not Given Loperamide HCl (Imodium) 2 mg PO QID PRN PRN Reason: Diarrhea Last Admin: 12/13/16 09:27 Dose: 2 mg Midodrine (Proamatine) 2.5 mg PO TID [facility] Last Admin: 12/19/16 14:08 Dose: 2.5 mg Morphine Sulfate (Morphine) 2 mg IVP Q4 PRN PRN Reason: Pain, moderate (4-7) Ondansetron HCl (Zofran Inj) 4 mg IVP Q6H PRN PRN Reason: Nausea/Vomiting Last Admin: 11/28/16 12:06 Dose: 4 mg Pantoprazole Sodium (Protonix Ec Tab) 40 mg PO DAILY [facility] Last Admin: 12/19/16 10:39 Dose: 40 mg Saccharomyces Boulardii (Florastor) 250 mg PO BID [facility] Last Admin: 12/19/16 17:30 Dose: 250 mg Zolpidem Tartrate (Ambien) 5 mg PO HS PRN PRN Reason: Insomnia Last Admin: 12/03/16 21:31 Dose: 5 mg - Labs Labs: 12/18/16 07:08 12/18/16 07:08 PT 15.0 SECONDS (9.7-12.2) H 12/03/16 07:08 INR 1.3 12/03/16 07:08 APTT 37 SECONDS (21-34) H 12/03/16 07:08 Assessment and Plan (1) Chronic diarrhea Status: Deleted (2) Colonic mass Status: Acute (3) Diabetic ketosis Status: Acute (4) GI bleeding Status: Acute (5) E coli bacteremia Status: Acute (6) E coli bacteremia Status: Acute
[2016-12-19] MEDS ORDERED: HYDROmorphone 1 mg/ml ISec IVP PRN (21:02)
[2016-12-19] MEDS: Linezolid 600 mg in D5W 300 ml 600 MG/300 ML BAG IVPB SCH (22:08)
[2016-12-20] MEDS: (Novolog) Insulin Aspart, Recombinant 100 u/ml 10 ml vial SC SCH ×4 (08:51→22:18)
[2016-12-20 08:58] VITALS: RESP 20
[2016-12-20] MEDS: Linezolid 600 mg in D5W 300 ml 600 MG/300 ML BAG IVPB SCH ×2 (09:00→22:11)
[2016-12-20] MEDS: Pantoprazole 40 mg EC Tab PO SCH (10:46)
[2016-12-20] MEDS: Saccharomyces Boulardi 250 mg Cap PO SCH ×2 (10:46→17:20)
[2016-12-20] MEDS: Enoxaparin 120 mg Syringe SC SCH ×2 (10:47→22:15)
[2016-12-20] MEDS: Cholestyramine 4 gm/Pkt UD PO SCH ×2 (10:48→22:42)
--- NOTE | 2016-12-20 15:40 | CP.PCM.PN ---
<Itz Enriquez - Last Filed: 12/20/16 15:37> Subjective - Date & Time of Evaluation Date of Evaluation: 12/20/16 Time of Evaluation: 07:10 - Subjective Subjective: PGY-[address] Rosa Rivera Patient seen and examined at bedside. Patient reports still experiencing loose stools. Patient also complaining of trouble sleeping but could not elaborate why. Patient denies fevers, chills, headaches, dizziness, chest pain, SOB. Objective - Vital Signs/Intake and Output Vital Signs (last 24 hours): Temp Pulse Resp BP Pulse Ox 97.6 F 95 H 20 109/73 98 12/20/16 08:56 12/20/16 08:56 12/20/16 08:56 12/20/16 08:56 12/20/16 08:56 Intake and Output: 12/20/16 12/20/16 06:59 18:59 Intake Total 850 Output Total 800 Balance 50 - Medications Medications: Current Medications Cholestyramine Resin (Questran) 4 gm PO Q12 [facility] Last Admin: 12/20/16 10:48 Dose: 4 gm Dronabinol (Marinol) 2.5 mg PO BID [facility] Last Admin: 12/20/16 10:47 Dose: 2.5 mg Enoxaparin Sodium (Lovenox) 90 mg SC Q12 [facility] Last Admin: 12/20/16 10:47 Dose: 90 mg Gabapentin (Neurontin) 100 mg PO TID [facility] Last Admin: 12/20/16 13:10 Dose: 100 mg Hydromorphone HCl (Dilaudid) 1 mg IVP Q4H PRN PRN Reason: Pain, severe (8-10) Imipenem/Cilastatin Sodium 500 (mg/ Sodium Chloride) 100 mls @ 100 mls/hr IVPB Q6H [facility] Last Admin: 12/20/16 12:13 Dose: 100 mls/hr Gentamicin Sulfate 80 mg/ (Sodium Chloride) 102 mls @ 100 mls/hr IVPB Q12H [facility] Last Admin: 12/20/16 08:00 Dose: 100 mls/hr Linezolid (Zyvox 600mg/300ml D5w) 600 mg in 300 mls @ 200 mls/hr IVPB Q12 [facility] Last Admin: 12/20/16 09:00 Dose: 200 mls/hr Insulin Aspart (Novolog) 0 unit SC ACHS [facility] PRN Reason: Protocol Last Admin: 12/20/16 13:09 Dose: 4 unit Loperamide HCl (Imodium) 2 mg PO QID PRN PRN Reason: Diarrhea Last Admin: 12/13/16 09:27 Dose: 2 mg Midodrine (Proamatine) 2.5 mg PO TID [facility] Last Admin: 12/20/16 13:10 Dose: 2.5 mg Morphine Sulfate (Morphine) 2 mg IVP Q4 PRN PRN Reason: Pain, moderate (4-7) Ondansetron HCl (Zofran Inj) 4 mg IVP Q6H PRN PRN Reason: Nausea/Vomiting Last Admin: 11/28/16 12:06 Dose: 4 mg Pantoprazole Sodium (Protonix Ec Tab) 40 mg PO DAILY [facility] Last Admin: 12/20/16 10:46 Dose: 40 mg Saccharomyces Boulardii (Florastor) 250 mg PO BID [facility] Last Admin: 12/20/16 10:46 Dose: 250 mg Zolpidem Tartrate (Ambien) 5 mg PO HS PRN PRN Reason: Insomnia Last Admin: 12/03/16 21:31 Dose: 5 mg - Labs Labs: 12/18/16 07:08 12/18/16 07:08 PT 15.0 SECONDS (9.7-12.2) H 12/03/16 07:08 INR 1.3 12/03/16 07:08 APTT 37 SECONDS (21-34) H 12/03/16 07:08 - Constitutional Appears: No Acute Distress - Head Exam Head Exam: ATRAUMATIC, NORMAL INSPECTION, NORMOCEPHALIC - Eye Exam Eye Exam: EOMI, PERRL - ENT Exam ENT Exam: Mucous Membranes Dry - Respiratory Exam Respiratory Exam: Decreased Breath Sounds. absent: Rales, Rhonchi, Wheezes - Cardiovascular Exam Cardiovascular Exam: REGULAR RHYTHM, +S1, +S2 - GI/Abdominal Exam GI & Abdominal Exam: Soft, Tenderness (centrally towards tube location), Normal Bowel Sounds - Neurological Exam Neurological Exam: Alert, Awake, Oriented x3 - Skin Skin Exam: Dry, Intact, Warm Assessment and Plan - Assessment and Plan (Free Text) Plan: Disposition: Hospice Care Bacteremia Assessment & Plan: Continues to be tachycardic, normotensive with few episodes of hypotension. Afebrile since 12/06/16 Blood and urine cultures 12/17/16, + VRE in one blood vial. 12/19: PICC line removed. CT abd/pelvis 12/07 showed enlargement of pelvic abscess, will consult IR for possible draining of abscess. 12/10: IR consulted for pelvic abscess drainage. Mass has increased from 8.4 x 6.9 x x 6.7 (11/16) to 12 x 15 x 8.5 (12/07). STILL IN PLACE!! 12/06/16 Blood culture + ESBL 12/06/16 Urine Culture + VRE - On Primaxin 400mg IVPB Q6 hours (started 12/06) - Start Ampicillin 2grams IVPB Q6 hours (started 12/08) - Was given 2 doses of Gentamicin on 12/07 and 12/06 12/06: Tachycardia, hypotensive, with bandemia at 27. Pt was jesus cultured. DC Rocephin. Was given a stat dose of Gentamycin and restarted on Primaxin. Possible source PICC line or RIJ Portacath. 11/30/17: As per ID, Repeat blood culture was negative, Primaxin and Flagyl was discontinued (11/29/16). Ceftriaxone 2 gm IV Q24H for 14 days starting 11/29/16 11/29/16: E. coli in blood culture on 11/15/16. Repeat blood culture on 11/23/16 was finalized as negative. I will speak with ID Dr. Burns concerning how much longer we need to continue the Primaxin and Flagyl 11/27: wbc trending down. afebrile. will continue primaxin and flagyl and monitor bands and wbc. Blood cultures negative after 3 days. 11/26: Patient in ICU for monitoring post OR, Bands 12 today, will monitor. 11/25: Blood cultures are negative after [address] Burns, con't tx for minimum of 14 days; Primaxin and Flagyl both started on 11/17. 11/19: HIV screen negative, Hep panel negative. Bands 26 today. 11/17: Changed to IV Primaxin 500mg IV Q6 Follow cultures. Currently blood pressure and HR stable. Nonfebrile. Continue with the IVF, monitor lowe outputs Status: Acute Pelvic Abscess Assessment & Plan: 12/10: IR consulted for pelvic abscess drainage . Mass has increased from 8.4 x 6.9 x x 6.7 (11/16) to 12 x 15 x 8.5 (12/07). CRYS drain in place. Continues to drain. Status: Acute Anemia of chronic disease Assessment & Plan: Hemoglobin continues to be stable. Continue to monitor Patient was transfused 2 units PRBCs on 12/13/16 S/P transfusion total 2 units PRBCs 12/06 POLLS OR SURVEYS INTERVIEWER was called on patient 12/04/16 due hypotension. Lasix was discontinued. He was given a fluid bolus, albumin and continued with the 1 unit of PRBCs. Patient was given albumin again today. And will be transfused another unit of PRBCs due to hemoglobin of 7.8. H/H was 7.7/27.4 - Consent retrieved- patient will be transfused 1 unit of PRBCs 11/26: After discussing with Heme/Onc Dr Garcia, since Ferritin is normal ferrlecit will not provide much benefit, will discontinue 11/25: Will start Ferrlecit 125mg iv daily after surgical procedure 11/25: Hgb stable at 8.6. Status: Acute Pleural Effusions Assessment & Plan: Repeated CXR 12/10/16 which is unchanged from previous on 12/06, bilateral pleural effusions R>L are stable. Repeat CXR (12/06) shows: Decreased bilateral pleural effusion. Probable linear atelectasis at left base. 12/07 CXR 12/02 compared to 11/15 --> B/L pleural effusions R>L. Was placed on lasix 20mg IVP Q12. Pulmonology consulted, Dr. Mccormick - patient is for thoracentesis. IR reported not enough fluid for thoracentesis. 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 12/06 C diff negative - Immodium added Stool culture negative for salmonella, shigella, campylobacter Stool leukocytes negative Ova and parasites not seen S/P RIJ Portacath insertion (12/03), s/p exploratory laparotomy (11/26) POD#10, w/ findings of unresectable rectosigmoid mass. 12/02/16 POD #6; Surgery will remove abdominal incision jody on POD #10. Surgery reconsulted for portacath placement. NPO past midnight tonight for OR tomorrow morning. 11/30/16: POD # 4: As per conversation with Dr. Lake Harris on 11/29/16, patient has decided to be DNR/DNI 11/29/16: POD #3. Patient is still undecided concerning further management. If he decides to proceed then he will need a Chemo Port placed. He has signed DNR/ DNI. I discussed patient's decision concerning further treatment with Dr. Willow Garcia on the night of 11/28/1611/28: s/p exploratory laparotomy POD2, w/ findings of unresectable rectosigmoid mass. Patient stated today he does not want the chemoport, he said he wants time to think about it. Patient appears tired and he does not want to make sudden decisions. No morning labs, blood draw was difficult this morning due to poor vein access. 11/27: s/p exploratory laparotomy POD1, w/ findings of unresectable rectosigmoid mass. Per surgery note, patient will need a portacath placement, time and date to be determined. Will stop heparin drip (tx for RUE deep vein thrombosis) 4 hours prior to portacath placement procedure. 11/26: Per operating room surgical technician, the surgery today to resect patient's sigmoid mass was halted after it was determined the mass was too large/firm for removal. The patient will be treated with a neoadjuvant with hopes of shrinking the size of the tumor with possible surgery for removal at a later date. Patient was sent to ICU post OR for monitoring. 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 Due to lovenox longer half life, therapeutic lovenox was discontinued and heparin was started. Heparin 8000u iv bolus was given and heparin drip was started at 18u/kg/hr. This drip will be stopped at exactly 5am, 4 hours before surgery. 11/21: Pt s/p cystoscopy today. Patient found to have invasion to dome of urinary bladder. Surgery to plan for surgery some time next week 11/21: Per GI, Abdominal U/S obtained to rule out SV thrombosis given presence of gastroesopahgeal varices seen on endoscopic examination -> Abdominal U/S: 1. Hepatocellular disease without focal hepatic mass. 2. Patent portal venous system including splenic vein. 3. Cholelithiasis. No sonographic evidence of acute cholecystitis. 4. Cystic mass in the head of the pancreas. Remainder the pancreas is not visualized. 11/21: PICC placed today by IR DR Armando. 11/20: s/p upper EUS: "LA grade C erosive esophagitis. 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 75mm x 65mm psedocyst seen in pancreatic body, fine needle aspiration for fluid performed. Varices were visualized endosonographically in fundus of stomach". Will f/u cystology and CEA levels. 11/20: s/p venous duplex of upper extremities: "right: acute thrombosis of right subclavian, axillary and brachial veins with severe reduction of venous return. left: acute thrombosis of left cephatlic vein with severe reduction of venous return". Therapeutic lovenox started -> 90mg q12 sc. 11/20: s/p venous duplex of lower extremeties: negative 11/19: GI to perform EUS tomorrow. Advanced diet to liquid - will advance as tolerated. B/l upper and lower extremity duplex scans were ordered today. 11/18: Patient is s/p EGD/Colonoscopy. A 10cm partially obstructing sigmoid mass was seen and biopsied. Multiple polyps were seen and resected. Heme/Onc, Dr Garcia has been consulted, we will follow up with his recommendations. CT chest abdomen and pelvis findings as noted: suspected sigmoid and proximal rectum mass lesion without evidence of high grade bowel obstruction; suspected abscess formation; cystic mass lesion noted at pancreas with surrounding fat stranding of the pancreatic tail; large gallstones without evidence of acute cholecystitis GI consult (Dr. Srivastava)---> Help appreciated General Surgery Consult (Dr. Amin)----> Help appreciated Urology Consult (Dr. Jon)----> Help appreciated Status: Acute Pancreatic lesion Assessment & Plan: GI outpatient follow-up 11/26: Pancreatic cyst FNA negative for malignant cells per cytology report. 11/25: Per clinical lab clerk, EUS performed on 11/20 sampled pancreatic cyst fluid with diagnostic studies ordered for ptf amylase and ptfCEA only 11/20: Upper EUS performed today: "75mm x 65mm psedocyst seen in pancreatic body , fine needle aspiration for fluid performed 11/18: CT abd/pelvis shows cystic mass lesion at pancreas with fat stranding of pacreatic tail. Lipase level and lipid panel was ordered today. 11/17: CA 19-9 wnl Status: Acute Acute deep vein thrombosis (DVT) of right upper extremity Assessment & Plan: Continue therapeutic Lovenox at 90 mg SC Q12H 11/29: Heparin Drip was discontinued on 11/28/16 as PTT could not be measured secondary to inability to draw blood from edematous arms and could not draw blood from left arm PICC for the PTT level due to the Heprin Drip being infused through the PICC. Therefore patient was restarted on therapeutic Lovenox at 90 mg SC Q12H 11/27: Heparin drip restarted at 18u/kg/hr. Heparin bolus 8,000u given prior to start of drip. 11/26: Per surgery, plan is to restart anticoagulant tomorrow morning Status: Acute Uncontrolled diabetes mellitus Assessment & Plan: Levemir 15 units SC HS---> DC due to continue hypoglycemic events and decreased appetite. Recent HgbA1C: 11.5 (11/20/16) Accuchecks Aspart ISS - low Status: Chronic Esophageal abrasion Assessment & Plan: 11/18: Per endoscopy report * Ulcerated mucosa in the lower third of the esophagus was seen and biopsied. Pathology negative for h pylori. * Patient is on Protonix 40 mg PO BID. Status: Acute Cholelithiasis Assessment & Plan: GI outpatient follow-up 11/18: CT abd/pelvis shows large gallstones without evidence of acute cholecystitis. Denies abd pain Status: Acute Abnormal cardiovascular stress test Assessment & Plan: Cardiology outpatient follow-up 11/25: Nuclear Stress Test: Defect in mid-anteroseptal wall, defect in basal inferoseptal wall, fixed apical defect old OR, small defect inferior wall 11/25: ECHO: left ventricle systolic function is normal. EF is 50-55%. Status: Acute Major Depressive Disorder Assessment & Plan: Dr. Loredo consulted, help appreciated Zoloft 50mg PO daily Psychoeducation Status: Acute Prophylactic measure Assessment & Plan: Protonix 40 mg PO BID Lovenox 90mg IV q12H Florastor PO BID Ambien 5 mg PO HS Marinol PO daily Physical Therapy started on 11/29/16 Status: Acute DW Itz Stoddard PGY1 <Blanco Rivera - Last Filed: 12/21/16 09:46> Objective - Vital Signs/Intake and Output Vital Signs (last 24 hours): Temp Pulse Resp BP Pulse Ox 97.6 F 95 H 20 124/76 97 12/21/16 07:00 12/21/16 08:00 12/21/16 07:00 12/21/16 07:00 12/21/16 07:00 Intake and Output: 12/21/16 12/21/16 06:59 18:59 Intake Total 700 Output Total 750 Balance -50 - Medications Medications: Current Medications Calcium Carbonate (Tums) 500 mg PO BID [facility] Cholestyramine Resin (Questran) 4 gm PO Q12 [facility] Last Admin: 12/20/16 22:42 Dose: Not Given Dronabinol (Marinol) 2.5 mg PO BID [facility] Last Admin: 12/20/16 17:20 Dose: 2.5 mg Enoxaparin Sodium (Lovenox) 90 mg SC Q12 [facility] Last Admin: 12/20/16 22:15 Dose: 90 mg Gabapentin (Neurontin) 100 mg PO TID [facility] Last Admin: 12/20/16 17:20 Dose: 100 mg Hydromorphone HCl (Dilaudid) 1 mg IVP Q4H PRN PRN Reason: Pain, severe (8-10) Imipenem/Cilastatin Sodium 500 (mg/ Sodium Chloride) 100 mls @ 100 mls/hr IVPB Q6H [facility] Last Admin: 12/21/16 05:22 Dose: 100 mls/hr Gentamicin Sulfate 80 mg/ (Sodium Chloride) 102 mls @ 100 mls/hr IVPB Q12H [facility] Last Admin: 12/20/16 21:00 Dose: 100 mls/hr Linezolid (Zyvox 600mg/300ml D5w) 600 mg in 300 mls @ 200 mls/hr IVPB Q12 [facility] Last Admin: 12/20/16 22:11 Dose: 200 mls/hr Insulin Aspart (Novolog) 0 unit SC ACHS [facility] PRN Reason: Protocol Last Admin: 12/21/16 08:26 Dose: 2 unit Loperamide HCl (Imodium) 2 mg PO QID PRN PRN Reason: Diarrhea Last Admin: 12/13/16 09:27 Dose: 2 mg Midodrine (Proamatine) 2.5 mg PO TID [facility] Last Admin: 12/20/16 17:20 Dose: 2.5 mg Morphine Sulfate (Morphine) 2 mg IVP Q4 PRN PRN Reason: Pain, moderate (4-7) Ondansetron HCl (Zofran Inj) 4 mg IVP Q6H PRN PRN Reason: Nausea/Vomiting Last Admin: 11/28/16 12:06 Dose: 4 mg Oxycodone HCl (Oxycontin Extended Release Tab) 10 mg PO Q12 [facility] Stop: 12/24/16 10:01 Pantoprazole Sodium (Protonix Ec Tab) 40 mg PO DAILY [facility] Last Admin: 12/20/16 10:46 Dose: 40 mg Saccharomyces Boulardii (Florastor) 250 mg PO BID [facility] Last Admin: 12/20/16 17:20 Dose: 250 mg Zolpidem Tartrate (Ambien) 5 mg PO HS [facility] Last Admin: 12/20/16 22:12 Dose: Not Given - Labs Labs: 12/21/16 06:30 12/21/16 06:30 PT 15.0 SECONDS (9.7-12.2) H 12/03/16 07:08 INR 1.3 12/03/16 07:08 APTT 37 SECONDS (21-34) H 12/03/16 07:08 Attending/Attestation - Attestation I have personally seen and examined this patient.: Yes I have fully participated in the care of the patient.: Yes I have reviewed all pertinent clinical information, including history, physical exam and plan: Yes Notes (Text): 12/21/16 09:46 Patient was seen and examined at bedside Still complains of diarrhea Blood cultures noted Continue IV antibiotics Hospice evaluation is in progress Discussed the plan of care with the resident and agree with the assessment and plan documented.
[2016-12-20] MEDS ORDERED: Tuberculin 5 Units/0.1 ml Inj ID ONE (16:00)
--- NOTE | 2016-12-21 00:06 | CP.PCM.PN ---
<Simin Hall - Last Filed: 12/21/16 00:03> Subjective - Date & Time of Evaluation Date of Evaluation: 12/21/16 Time of Evaluation: 00:00 - Subjective Subjective: Medicine note for Dr. Rivera Patient seen and examined at bedside. Patient reports he feels the same. Continues to have loose bowel movements. Patient has spoken extensively with palliative care. Denied any fever, chills, SOB, cough, chest pain, abdominal pain, n/v, or urinary symptoms. Disposition: [facility] is evaluating patient for appropriate Hospice placement Objective - Vital Signs/Intake and Output Vital Signs (last 24 hours): Temp Pulse Resp BP Pulse Ox 97.5 F L 93 H 20 117/71 98 12/20/16 15:00 12/20/16 15:00 12/20/16 15:00 12/20/16 15:00 12/20/16 15:00 - Medications Medications: Current Medications Cholestyramine Resin (Questran) 4 gm PO Q12 [facility] Last Admin: 12/20/16 22:42 Dose: Not Given Dronabinol (Marinol) 2.5 mg PO BID [facility] Last Admin: 12/20/16 17:20 Dose: 2.5 mg Enoxaparin Sodium (Lovenox) 90 mg SC Q12 [facility] Last Admin: 12/20/16 22:15 Dose: 90 mg Gabapentin (Neurontin) 100 mg PO TID [facility] Last Admin: 12/20/16 17:20 Dose: 100 mg Hydromorphone HCl (Dilaudid) 1 mg IVP Q4H PRN PRN Reason: Pain, severe (8-10) Imipenem/Cilastatin Sodium 500 (mg/ Sodium Chloride) 100 mls @ 100 mls/hr IVPB Q6H [facility] Last Admin: 12/20/16 18:04 Dose: 100 mls/hr Gentamicin Sulfate 80 mg/ (Sodium Chloride) 102 mls @ 100 mls/hr IVPB Q12H [facility] Last Admin: 12/20/16 21:00 Dose: 100 mls/hr Linezolid (Zyvox 600mg/300ml D5w) 600 mg in 300 mls @ 200 mls/hr IVPB Q12 [facility] Last Admin: 12/20/16 22:11 Dose: 200 mls/hr Insulin Aspart (Novolog) 0 unit SC ACHS [facility] PRN Reason: Protocol Last Admin: 12/20/16 22:18 Dose: Not Given Loperamide HCl (Imodium) 2 mg PO QID PRN PRN Reason: Diarrhea Last Admin: 12/13/16 09:27 Dose: 2 mg Midodrine (Proamatine) 2.5 mg PO TID [facility] Last Admin: 12/20/16 17:20 Dose: 2.5 mg Morphine Sulfate (Morphine) 2 mg IVP Q4 PRN PRN Reason: Pain, moderate (4-7) Ondansetron HCl (Zofran Inj) 4 mg IVP Q6H PRN PRN Reason: Nausea/Vomiting Last Admin: 11/28/16 12:06 Dose: 4 mg Pantoprazole Sodium (Protonix Ec Tab) 40 mg PO DAILY [facility] Last Admin: 12/20/16 10:46 Dose: 40 mg Saccharomyces Boulardii (Florastor) 250 mg PO BID [facility] Last Admin: 12/20/16 17:20 Dose: 250 mg Zolpidem Tartrate (Ambien) 5 mg PO HS [facility] Last Admin: 12/20/16 22:12 Dose: Not Given - Labs Labs: 12/18/16 07:08 12/18/16 07:08 PT 15.0 SECONDS (9.7-12.2) H 12/03/16 07:08 INR 1.3 12/03/16 07:08 APTT 37 SECONDS (21-34) H 12/03/16 07:08 - Constitutional Appears: No Acute Distress, Chronically Ill - Head Exam Head Exam: NORMAL INSPECTION, NORMOCEPHALIC - Eye Exam Eye Exam: EOMI, Normal appearance, PERRL - ENT Exam ENT Exam: Mucous Membranes Moist - Neck Exam Neck Exam: Normal Inspection - Respiratory Exam Respiratory Exam: Decreased Breath Sounds, NORMAL BREATHING PATTERN - Cardiovascular Exam Cardiovascular Exam: REGULAR RHYTHM, +S1, +S2 - GI/Abdominal Exam GI & Abdominal Exam: Soft, Tenderness, Normal Bowel Sounds - Rectal Exam Rectal Exam: Deferred - Extremities Exam Extremities Exam: Pedal Edema Additional comments: right arm less swollen than previous week (R UE DVT) LEFT ARM PICC BL LE EDEMA - Neurological Exam Neurological Exam: Alert, Awake, Oriented x3 - Psychiatric Exam Psychiatric exam: Depressed, Flat Affect - Skin Skin Exam: Dry, Intact, Normal Color, Warm Assessment and Plan - Assessment and Plan (Free Text) Plan: Disposition: Family is at bedside. [employer] Maker was used Brittni # [id number] to explain the patient's condition and prognosis as well as to answer any of their questions. Patient was made DNR/DNI during this admission. [facility] is evaluating patient for appropriate Hospice placement. Bacteremia Assessment & Plan: Continues to be tachycardic, normotensive with few episodes of hypotension. Afebrile since 12/06/16 CT abd/pelvis 12/07 showed enlargement of pelvic abscess, will consult IR for possible draining of abscess. 12/10: IR consulted for pelvic abscess drainage. Mass has increased from 8.4 x 6.9 x x 6.7 (11/16) to 12 x 15 x 8.5 (12/07). STILL IN PLACE!! Blood and urine cultures 12/17/16, + VRE in both cultures. PICC LINE REMOVED 12/20 Started on Zyvox Q12H 12/19/16, continue Primaxin 400mg IVPB Q6 hours (started 12/06/16), Gentamicin Q12H started 12/15/1612/06: Tachycardia, hypotensive, with bandemia at 27. Pt was jesus cultured. DC Rocephin. Was given a stat dose of Gentamycin and restarted on Primaxin. Possible source PICC line or RIJ Portacath. 11/30/17: As per ID, Repeat blood culture was negative, Primaxin and Flagyl was discontinued (11/29/16). Ceftriaxone 2 gm IV Q24H for 14 days starting 11/29/16 11/29/16: E. coli in blood culture on 11/15/16. Repeat blood culture on 11/23/16 was finalized as negative. I will speak with ID Dr. Burns concerning how much longer we need to continue the Primaxin and Flagyl 11/27: wbc trending down. afebrile. will continue primaxin and flagyl and monitor bands and wbc. Blood cultures negative after 3 days. 11/26: Patient in ICU for monitoring post OR, Bands 12 today, will monitor. 11/25: Blood cultures are negative after [address] Burns, con't tx for minimum of 14 days; Primaxin and Flagyl both started on 11/17. 11/19: HIV screen negative, Hep panel negative. Bands 26 today. 11/17: Changed to IV Primaxin 500mg IV Q6 Follow cultures. Currently blood pressure and HR stable. Nonfebrile. Continue with the IVF, monitor lowe outputs Status: Acute Pelvic Abscess Assessment & Plan: 12/10: IR consulted for pelvic abscess drainage . Mass has increased from 8.4 x 6.9 x x 6.7 (11/16) to 12 x 15 x 8.5 (12/07). CRYS drain in place. Continues to drain. Status: Acute Anemia of chronic disease Assessment & Plan: Hemoglobin continues to be stable. Continue to monitor Patient was transfused 2 units PRBCs on 12/13/16 S/P transfusion total 2 units PRBCs 12/06 RETAIL SUPPORT ASSOCIATE was called on patient 12/04/16 due hypotension. Lasix was discontinued. He was given a fluid bolus, albumin and continued with the 1 unit of PRBCs. Patient was given albumin again today. And will be transfused another unit of PRBCs due to hemoglobin of 7.8. H/H was 7.7/27.4 - Consent retrieved- patient will be transfused 1 unit of PRBCs 11/26: After discussing with Heme/Onc Dr Garcia, since Ferritin is normal ferrlecit will not provide much benefit, will discontinue 11/25: Will start Ferrlecit 125mg iv daily after surgical procedure 11/25: Hgb stable at 8.6. Status: Acute Pleural Effusions Assessment & Plan: Repeated CXR 12/10/16 which is unchanged from previous on 12/06, bilateral pleural effusions R>L are stable. Repeat CXR (12/06) shows: Decreased bilateral pleural effusion. Probable linear atelectasis at left base. 12/07 CXR 12/02 compared to 11/15 --> B/L pleural effusions R>L. Was placed on lasix 20mg IVP Q12. Pulmonology consulted, Dr. Mccormick - patient is for thoracentesis. IR reported not enough fluid for thoracentesis. 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 12/06 C diff negative - Immodium added Stool culture negative for salmonella, shigella, campylobacter Stool leukocytes negative Ova and parasites not seen S/P RIJ Portacath insertion (12/03), s/p exploratory laparotomy (11/26) POD#10, w/ findings of unresectable rectosigmoid mass. 12/02/16 POD #6; Surgery will remove abdominal incision jody on POD #10. Surgery reconsulted for portacath placement. NPO past midnight tonight for OR tomorrow morning. 11/30/16: POD # 4: As per conversation with Dr. Lake Harris on 11/29/16, patient has decided to be DNR/DNI 11/29/16: POD #3. Patient is still undecided concerning further management. If he decides to proceed then he will need a Chemo Port placed. He has signed DNR/ DNI. I discussed patient's decision concerning further treatment with Dr. Willow Garcia on the night of 11/28/1611/28: s/p exploratory laparotomy POD2, w/ findings of unresectable rectosigmoid mass. Patient stated today he does not want the chemoport, he said he wants time to think about it. Patient appears tired and he does not want to make sudden decisions. No morning labs, blood draw was difficult this morning due to poor vein access. 11/27: s/p exploratory laparotomy POD1, w/ findings of unresectable rectosigmoid mass. Per surgery note, patient will need a portacath placement, time and date to be determined. Will stop heparin drip (tx for RUE deep vein thrombosis) 4 hours prior to portacath placement procedure. 11/26: Per financial institution vice president, the surgery today to resect patient's sigmoid mass was halted after it was determined the mass was too large/firm for removal. The patient will be treated with a neoadjuvant with hopes of shrinking the size of the tumor with possible surgery for removal at a later date. Patient was sent to ICU post OR for monitoring. 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 Due to lovenox longer half life, therapeutic lovenox was discontinued and heparin was started. Heparin 8000u iv bolus was given and heparin drip was started at 18u/kg/hr. This drip will be stopped at exactly 5am, 4 hours before surgery. 11/21: Pt s/p cystoscopy today. Patient found to have invasion to dome of urinary bladder. Surgery to plan for surgery some time next week 11/21: Per GI, Abdominal U/S obtained to rule out SV thrombosis given presence of gastroesopahgeal varices seen on endoscopic examination -> Abdominal U/S: 1. Hepatocellular disease without focal hepatic mass. 2. Patent portal venous system including splenic vein. 3. Cholelithiasis. No sonographic evidence of acute cholecystitis. 4. Cystic mass in the head of the pancreas. Remainder the pancreas is not visualized. 11/21: PICC placed today by IR DR Armando. 11/20: s/p upper EUS: "LA grade C erosive esophagitis. 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 75mm x 65mm psedocyst seen in pancreatic body, fine needle aspiration for fluid performed. Varices were visualized endosonographically in fundus of stomach". Will f/u cystology and CEA levels. 11/20: s/p venous duplex of upper extremities: "right: acute thrombosis of right subclavian, axillary and brachial veins with severe reduction of venous return. left: acute thrombosis of left cephatlic vein with severe reduction of venous return". Therapeutic lovenox started -> 90mg q12 sc. 11/20: s/p venous duplex of lower extremeties: negative 11/19: GI to perform EUS tomorrow. Advanced diet to liquid - will advance as tolerated. B/l upper and lower extremity duplex scans were ordered today. 11/18: Patient is s/p EGD/Colonoscopy. A 10cm partially obstructing sigmoid mass was seen and biopsied. Multiple polyps were seen and resected. Heme/Onc, Dr Garcia has been consulted, we will follow up with his recommendations. CT chest abdomen and pelvis findings as noted: suspected sigmoid and proximal rectum mass lesion without evidence of high grade bowel obstruction; suspected abscess formation; cystic mass lesion noted at pancreas with surrounding fat stranding of the pancreatic tail; large gallstones without evidence of acute cholecystitis GI consult (Dr. Srivastava)---> Help appreciated General Surgery Consult (Dr. Amin)----> Help appreciated Urology Consult (Dr. Jon)----> Help appreciated Status: Acute Acute deep vein thrombosis (DVT) of right upper extremity Assessment & Plan: Continue therapeutic Lovenox at 90 mg SC Q12H 11/29: Heparin Drip was discontinued on 11/28/16 as PTT could not be measured secondary to inability to draw blood from edematous arms and could not draw blood from left arm PICC for the PTT level due to the Heprin Drip being infused through the PICC. Therefore patient was restarted on therapeutic Lovenox at 90 mg SC Q12H 11/27: Heparin drip restarted at 18u/kg/hr. Heparin bolus 8,000u given prior to start of drip. 11/26: Per surgery, plan is to restart anticoagulant tomorrow morning Status: Acute Hypotension Assessment & Plan: Continued hypotension, started on Midodrin 2.5mg PO TID Status: Acute Pancreatic lesion Assessment & Plan: GI outpatient follow-up 11/26: Pancreatic cyst FNA negative for malignant cells per cytology report. 11/25: Per medical laboratory technicians, EUS performed on 11/20 sampled pancreatic cyst fluid with diagnostic studies ordered for ptf amylase and ptfCEA only 11/20: Upper EUS performed today: "75mm x 65mm psedocyst seen in pancreatic body , fine needle aspiration for fluid performed 11/18: CT abd/pelvis shows cystic mass lesion at pancreas with fat stranding of pacreatic tail. Lipase level and lipid panel was ordered today. 11/17: CA 19-9 wnl Status: Acute Uncontrolled diabetes mellitus Assessment & Plan: Levemir 15 units SC HS---> DC due to continue hypoglycemic events and decreased appetite. Recent HgbA1C: 11.5 (11/20/16) Accuchecks Aspart ISS - low Status: Chronic Esophageal abrasion Assessment & Plan: 11/18: Per endoscopy report * Ulcerated mucosa in the lower third of the esophagus was seen and biopsied. Pathology negative for h pylori. * Patient is on Protonix 40 mg PO BID. Status: Acute Cholelithiasis Assessment & Plan: GI outpatient follow-up 11/18: CT abd/pelvis shows large gallstones without evidence of acute cholecystitis. Denies abd pain Status: Acute Abnormal cardiovascular stress test Assessment & Plan: Cardiology outpatient follow-up 11/25: Nuclear Stress Test: Defect in mid-anteroseptal wall, defect in basal inferoseptal wall, fixed apical defect old NC, small defect inferior wall 11/25: ECHO: left ventricle systolic function is normal. EF is 50-55%. Status: Acute Major Depressive Disorder Assessment & Plan: Dr. Loredo consulted, help appreciated Zoloft 50mg PO daily Psychoeducation Status: Acute Prophylactic measure Assessment & Plan: Protonix 40 mg PO BID Lovenox 90mg IV q12H Florastor PO BID Ambien 5 mg PO HS Marinol PO daily Physical Therapy started on 11/29/16 Q2H repositioning Status: Acute DW Rafael Stoddard DO, PGY-1 <Blanco Rivera - Last Filed: 12/21/16 15:56> Objective - Vital Signs/Intake and Output Vital Signs (last 24 hours): Temp Pulse Resp BP Pulse Ox 97.6 F 95 H 20 124/76 97 12/21/16 07:00 12/21/16 08:00 12/21/16 07:00 12/21/16 07:00 12/21/16 07:00 Intake and Output: 12/21/16 12/21/16 06:59 18:59 Intake Total 700 Output Total 750 Balance -50 - Medications Medications: Current Medications Calcium Carbonate (Tums) 500 mg PO BID [facility] Last Admin: 12/21/16 10:57 Dose: 500 mg Cholestyramine Resin (Questran) 4 gm PO Q12 [facility] Last Admin: 12/21/16 09:57 Dose: 4 gm Dronabinol (Marinol) 2.5 mg PO BID [facility] Last Admin: 12/21/16 11:20 Dose: 2.5 mg Enoxaparin Sodium (Lovenox) 90 mg SC Q12 [facility] Last Admin: 12/21/16 09:57 Dose: 90 mg Gabapentin (Neurontin) 100 mg PO TID [facility] Last Admin: 12/21/16 14:30 Dose: 100 mg Hydromorphone HCl (Dilaudid) 1 mg IVP Q4H PRN PRN Reason: Pain, severe (8-10) Imipenem/Cilastatin Sodium 500 (mg/ Sodium Chloride) 100 mls @ 100 mls/hr IVPB Q6H [facility] Last Admin: 12/21/16 12:50 Dose: 100 mls/hr Gentamicin Sulfate 80 mg/ (Sodium Chloride) 102 mls @ 100 mls/hr IVPB Q12H [facility] Last Admin: 12/21/16 09:56 Dose: 100 mls/hr Linezolid (Zyvox 600mg/300ml D5w) 600 mg in 300 mls @ 200 mls/hr IVPB Q12 [facility] Last Admin: 12/21/16 09:56 Dose: 200 mls/hr Insulin Aspart (Novolog) 0 unit SC ACHS [facility] PRN Reason: Protocol Last Admin: 12/21/16 12:50 Dose: 4 unit Loperamide HCl (Imodium) 2 mg PO QID PRN PRN Reason: Diarrhea Last Admin: 12/21/16 10:57 Dose: 2 mg Midodrine (Proamatine) 2.5 mg PO TID [facility] Last Admin: 12/21/16 14:30 Dose: 2.5 mg Morphine Sulfate (Morphine) 2 mg IVP Q4 PRN PRN Reason: Pain, moderate (4-7) Ondansetron HCl (Zofran Inj) 4 mg IVP Q6H PRN PRN Reason: Nausea/Vomiting Last Admin: 11/28/16 12:06 Dose: 4 mg Oxycodone HCl (Oxycontin Extended Release Tab) 10 mg PO Q12 [facility] Stop: 12/24/16 10:01 Last Admin: 12/21/16 09:58 Dose: Not Given Pantoprazole Sodium (Protonix Ec Tab) 40 mg PO DAILY [facility] Last Admin: 12/21/16 09:57 Dose: 40 mg Saccharomyces Boulardii (Florastor) 250 mg PO BID [facility] Last Admin: 12/21/16 09:57 Dose: 250 mg Zolpidem Tartrate (Ambien) 5 mg PO HS [facility] Last Admin: 12/20/16 22:12 Dose: Not Given - Labs Labs: 12/21/16 06:30 12/21/16 06:30 PT 15.0 SECONDS (9.7-12.2) H 12/03/16 07:08 INR 1.3 12/03/16 07:08 APTT 37 SECONDS (21-34) H 12/03/16 07:08 Attending/Attestation - Attestation I have personally seen and examined this patient.: Yes I have fully participated in the care of the patient.: Yes I have reviewed all pertinent clinical information, including history, physical exam and plan: Yes Notes (Text): 12/21/16 15:55 Patient was seen and examined at bedside. Patient complains of diarrhea Denies any abdominal pain Continue current medical management Patient being evaluated by hospice I agree with the assessment and plan documented by the resident.
[2016-12-21 06:40] LABS: BASO % 0.1 % (0.0-2.0); EOS % 0.1 % (0.0-4.0); HEMATOCRIT 28.9 % (35.0-51.0); LYMPH # 0.8 K/uL (1.0-4.3); LYMPH % 6.5 % (20.0-40.0); MEAN CELL VOLUME 83.6 fL (80.0-94.0); MEAN CORPUSCULAR HEMOGLOBIN 26.9 pg (27.0-31.0); MEAN CORPUSCULAR HGB CONC 32.2 g/dL (33.0-37.0); MEAN PLATELET VOLUME 8.6 fL (7.2-11.7); MONO # 0.8 K/uL (0.0-0.8); MONO % 6.9 % (0.0-10.0); PLATELET COUNT 188 K/uL (130-400); RED CELL DISTRIBUTION WIDTH 21.2 % (11.5-14.5)
[2016-12-21 06:48] LABS: CHLORIDE 106 mmol/L (98-107); POTASSIUM 3.3 mmol/L (3.6-5.2); SODIUM 136 mmol/L (132-148)
[2016-12-21 06:50] LABS: BILIRUBIN,TOTAL 0.6 mg/dL (0.2-1.3); CARBON DIOXIDE 21 mmol/L (22-30); GFR AFRICAN-AMERICAN > 60
[2016-12-21 06:51] LABS: ALB/GLOB RATIO 0.5 (1.0-2.1); ALKALINE PHOSPHATASE 158 U/L (38-126); ALT/SGPT 25 U/L (21-72); AST/SGOT 11 U/L (17-59); BLOOD UREA NITROGEN 18 mg/dL (9-20); CALCIUM 6.5 mg/dl (8.6-10.4); GLUCOSE,RANDOM 189 mg/dL (75-110); MAGNESIUM 1.8 mg/dL (1.6-2.3); PHOSPHOROUS 3.3 mg/dL (2.5-4.5); TOTAL PROTEIN 4.3 g/dL (6.3-8.3)
[2016-12-21] MEDS ORDERED: Potassium Chloride 20 mEq ER Tab PO ONE (08:00)
[2016-12-21] MEDS: (Novolog) Insulin Aspart, Recombinant 100 u/ml 10 ml vial SC SCH ×4 (08:26→22:26)
[2016-12-21 08:33] LABS: NEUTROPHIL 64 % (50-75); TOTAL CELLS COUNTED 100
[2016-12-21 08:34] LABS: LARGE PLATELETS PRESENT
[2016-12-21] MEDS: Linezolid 600 mg in D5W 300 ml 600 MG/300 ML BAG IVPB SCH ×2 (09:56→22:30)
[2016-12-21] MEDS: Pantoprazole 40 mg EC Tab PO SCH (09:57)
[2016-12-21] MEDS: Saccharomyces Boulardi 250 mg Cap PO SCH ×2 (09:57→19:08)
[2016-12-21] MEDS: Cholestyramine 4 gm/Pkt UD PO SCH ×2 (09:57→22:25)
[2016-12-21] MEDS: Enoxaparin 120 mg Syringe SC SCH ×2 (09:57→22:24)
[2016-12-21] MEDS: oxyCODONE 10 mg ER Tab (oxyCONTIN) PO SCH ×2 (09:58→22:25)
[2016-12-21] MEDS: Calcium Carbonate 500 mg Chewable Antacid Tab PO SCH ×2 (10:57→19:00)
--- NOTE | 2016-12-22 00:57 | CP.PCM.PN ---
<Simin Hall - Last Filed: 12/22/16 00:54> Subjective - Date & Time of Evaluation Date of Evaluation: 12/22/16 Time of Evaluation: 00:00 - Subjective Subjective: Medicine note for Dr. Rivera Patient seen and examined at bedside. Patient reports he feels the same. Continues to have loose bowel movements. Patient has spoken extensively with palliative care. Denied any fever, chills, SOB, cough, chest pain, abdominal pain, n/v, or urinary symptoms. Disposition: [facility] is evaluating patient for appropriate Hospice placement Objective - Vital Signs/Intake and Output Vital Signs (last 24 hours): Temp Pulse Resp BP Pulse Ox 97.4 F L 119 H 20 135/75 96 12/21/16 15:00 12/21/16 15:00 12/21/16 15:00 12/21/16 15:00 12/21/16 15:00 - Medications Medications: Current Medications Calcium Carbonate (Tums) 500 mg PO BID [facility] Last Admin: 12/21/16 19:00 Dose: Not Given Cholestyramine Resin (Questran) 4 gm PO Q12 [facility] Last Admin: 12/21/16 22:25 Dose: 4 gm Dronabinol (Marinol) 2.5 mg PO BID [facility] Last Admin: 12/21/16 19:08 Dose: 2.5 mg Enoxaparin Sodium (Lovenox) 90 mg SC Q12 [facility] Last Admin: 12/21/16 22:24 Dose: 90 mg Gabapentin (Neurontin) 100 mg PO TID [facility] Last Admin: 12/21/16 19:08 Dose: 100 mg Hydromorphone HCl (Dilaudid) 1 mg IVP Q4H PRN PRN Reason: Pain, severe (8-10) Imipenem/Cilastatin Sodium 500 (mg/ Sodium Chloride) 100 mls @ 100 mls/hr IVPB Q6H [facility] Last Admin: 12/22/16 00:22 Dose: 100 mls/hr Gentamicin Sulfate 80 mg/ (Sodium Chloride) 102 mls @ 100 mls/hr IVPB Q12H [facility] Last Admin: 12/21/16 22:23 Dose: 100 mls/hr Linezolid (Zyvox 600mg/300ml D5w) 600 mg in 300 mls @ 200 mls/hr IVPB Q12 [facility] Last Admin: 12/21/16 22:30 Dose: 200 mls/hr Insulin Aspart (Novolog) 0 unit SC ACHS DOREEN PRN Reason: Protocol Last Admin: 12/21/16 22:26 Dose: Not Given Loperamide HCl (Imodium) 2 mg PO QID PRN PRN Reason: Diarrhea Last Admin: 12/21/16 10:57 Dose: 2 mg Midodrine (Proamatine) 2.5 mg PO TID [facility] Last Admin: 12/21/16 19:08 Dose: 2.5 mg Morphine Sulfate (Morphine) 2 mg IVP Q4 PRN PRN Reason: Pain, moderate (4-7) Ondansetron HCl (Zofran Inj) 4 mg IVP Q6H PRN PRN Reason: Nausea/Vomiting Last Admin: 11/28/16 12:06 Dose: 4 mg Oxycodone HCl (Oxycontin Extended Release Tab) 10 mg PO Q12 [facility] Stop: 12/24/16 10:01 Last Admin: 12/21/16 22:25 Dose: 10 mg Pantoprazole Sodium (Protonix Ec Tab) 40 mg PO DAILY [facility] Last Admin: 12/21/16 09:57 Dose: 40 mg Saccharomyces Boulardii (Florastor) 250 mg PO BID [facility] Last Admin: 12/21/16 19:08 Dose: 250 mg Zolpidem Tartrate (Ambien) 5 mg PO HS [facility] Last Admin: 12/21/16 22:26 Dose: 5 mg - Labs Labs: 12/21/16 06:30 12/21/16 06:30 PT 15.0 SECONDS (9.7-12.2) H 12/03/16 07:08 INR 1.3 12/03/16 07:08 APTT 37 SECONDS (21-34) H 12/03/16 07:08 - Constitutional Appears: No Acute Distress, Chronically Ill - Head Exam Head Exam: NORMAL INSPECTION, NORMOCEPHALIC - Eye Exam Eye Exam: EOMI, Normal appearance, PERRL Pupil Exam: NORMAL ACCOMODATION - ENT Exam ENT Exam: Mucous Membranes Moist - Respiratory Exam Respiratory Exam: Decreased Breath Sounds, NORMAL BREATHING PATTERN - Cardiovascular Exam Cardiovascular Exam: REGULAR RHYTHM, RRR, +S1, +S2 - GI/Abdominal Exam GI & Abdominal Exam: Soft, Normal Bowel Sounds. absent: Distended, Tenderness Additional comments: CRYS DRAIN - Extremities Exam Extremities Exam: Normal Inspection. absent: Pedal Edema, Tenderness Additional comments: right arm less swollen than previous week (R UE DVT) LEFT ARM PICC BL LE EDEMA - Neurological Exam Neurological Exam: Alert, Awake, Oriented x3 - Psychiatric Exam Psychiatric exam: Depressed, Flat Affect - Skin Skin Exam: Dry, Intact, Normal Color, Warm Assessment and Plan - Assessment and Plan (Free Text) Plan: Disposition: Family is at bedside. Metal Casting Trades Worker was used Brittni # [id number] to explain the patient's condition and prognosis as well as to answer any of their questions. Patient was made DNR/DNI during this admission. [facility] is evaluating patient for appropriate Hospice placement. Labs are drawn Q2D, Started on Oxycodone 10mg Q12H. Bacteremia Assessment & Plan: Continues to be tachycardic, normotensive with few episodes of hypotension. Afebrile since 12/06/16 CT abd/pelvis 12/07 showed enlargement of pelvic abscess, will consult IR for possible draining of abscess. 12/10: IR consulted for pelvic abscess drainage. Mass has increased from 8.4 x 6.9 x x 6.7 (11/16) to 12 x 15 x 8.5 (12/07). STILL IN PLACE!! Blood and urine cultures 12/17/16, + VRE in both cultures. PICC LINE REMOVED 12/20 Started on Zyvox Q12H 12/19/16, continue Primaxin 400mg IVPB Q6 hours (started 12/06/16), Gentamicin Q12H started 12/15/1612/06: Tachycardia, hypotensive, with bandemia at 27. Pt was jesus cultured. DC Rocephin. Was given a stat dose of Gentamycin and restarted on Primaxin. Possible source PICC line or RIJ Portacath. 11/30/17: As per ID, Repeat blood culture was negative, Primaxin and Flagyl was discontinued (11/29/16). Ceftriaxone 2 gm IV Q24H for 14 days starting 11/29/16 11/29/16: E. coli in blood culture on 11/15/16. Repeat blood culture on 11/23/16 was finalized as negative. I will speak with ID Dr. Burns concerning how much longer we need to continue the Primaxin and Flagyl 11/27: wbc trending down. afebrile. will continue primaxin and flagyl and monitor bands and wbc. Blood cultures negative after 3 days. 11/26: Patient in ICU for monitoring post OR, Bands 12 today, will monitor. 11/25: Blood cultures are negative after [address] Burns, con't tx for minimum of 14 days; Primaxin and Flagyl both started on 11/17. 11/19: HIV screen negative, Hep panel negative. Bands 26 today. 11/17: Changed to IV Primaxin 500mg IV Q6 Follow cultures. Currently blood pressure and HR stable. Nonfebrile. Continue with the IVF, monitor lowe outputs Status: Acute Pelvic Abscess Assessment & Plan: 12/10: IR consulted for pelvic abscess drainage . Mass has increased from 8.4 x 6.9 x x 6.7 (11/16) to 12 x 15 x 8.5 (12/07). CRYS drain in place. Continues to drain. Status: Acute Anemia of chronic disease Assessment & Plan: Hemoglobin continues to be stable. Continue to monitor Patient was transfused 2 units PRBCs on 12/13/16 S/P transfusion total 2 units PRBCs 12/06 SHOOTING GALLERY OPERATOR was called on patient 12/04/16 due hypotension. Lasix was discontinued. He was given a fluid bolus, albumin and continued with the 1 unit of PRBCs. Patient was given albumin again today. And will be transfused another unit of PRBCs due to hemoglobin of 7.8. H/H was 7.7/27.4 - Consent retrieved- patient will be transfused 1 unit of PRBCs 11/26: After discussing with Heme/Onc Dr Garcia, since Ferritin is normal ferrlecit will not provide much benefit, will discontinue 11/25: Will start Ferrlecit 125mg iv daily after surgical procedure 11/25: Hgb stable at 8.6. Status: Acute Pleural Effusions Assessment & Plan: Repeated CXR 12/10/16 which is unchanged from previous on 12/06, bilateral pleural effusions R>L are stable. Repeat CXR (12/06) shows: Decreased bilateral pleural effusion. Probable linear atelectasis at left base. 12/07 CXR 12/02 compared to 11/15 --> B/L pleural effusions R>L. Was placed on lasix 20mg IVP Q12. Pulmonology consulted, Dr. Mccormick - patient is for thoracentesis. IR reported not enough fluid for thoracentesis. 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 12/06 C diff negative - Immodium added Stool culture negative for salmonella, shigella, campylobacter Stool leukocytes negative Ova and parasites not seen S/P RIJ Portacath insertion (12/03), s/p exploratory laparotomy (11/26) POD#10, w/ findings of unresectable rectosigmoid mass. 12/02/16 POD #6; Surgery will remove abdominal incision jody on POD #10. Surgery reconsulted for portacath placement. NPO past midnight tonight for OR tomorrow morning. 11/30/16: POD # 4: As per conversation with Dr. Lake Harris on 11/29/16, patient has decided to be DNR/DNI 11/29/16: POD #3. Patient is still undecided concerning further management. If he decides to proceed then he will need a Chemo Port placed. He has signed DNR/ DNI. I discussed patient's decision concerning further treatment with Dr. Willow Garcia on the night of 11/28/1611/28: s/p exploratory laparotomy POD2, w/ findings of unresectable rectosigmoid mass. Patient stated today he does not want the chemoport, he said he wants time to think about it. Patient appears tired and he does not want to make sudden decisions. No morning labs, blood draw was difficult this morning due to poor vein access. 11/27: s/p exploratory laparotomy POD1, w/ findings of unresectable rectosigmoid mass. Per surgery note, patient will need a portacath placement, time and date to be determined. Will stop heparin drip (tx for RUE deep vein thrombosis) 4 hours prior to portacath placement procedure. 11/26: Per care program resident, the surgery today to resect patient's sigmoid mass was halted after it was determined the mass was too large/firm for removal. The patient will be treated with a neoadjuvant with hopes of shrinking the size of the tumor with possible surgery for removal at a later date. Patient was sent to ICU post OR for monitoring. 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 Due to lovenox longer half life, therapeutic lovenox was discontinued and heparin was started. Heparin 8000u iv bolus was given and heparin drip was started at 18u/kg/hr. This drip will be stopped at exactly 5am, 4 hours before surgery. 11/21: Pt s/p cystoscopy today. Patient found to have invasion to dome of urinary bladder. Surgery to plan for surgery some time next week 11/21: Per GI, Abdominal U/S obtained to rule out SV thrombosis given presence of gastroesopahgeal varices seen on endoscopic examination -> Abdominal U/S: 1. Hepatocellular disease without focal hepatic mass. 2. Patent portal venous system including splenic vein. 3. Cholelithiasis. No sonographic evidence of acute cholecystitis. 4. Cystic mass in the head of the pancreas. Remainder the pancreas is not visualized. 11/21: PICC placed today by IR DR Armando. 11/20: s/p upper EUS: "LA grade C erosive esophagitis. 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 75mm x 65mm psedocyst seen in pancreatic body, fine needle aspiration for fluid performed. Varices were visualized endosonographically in fundus of stomach". Will f/u cystology and CEA levels. 11/20: s/p venous duplex of upper extremities: "right: acute thrombosis of right subclavian, axillary and brachial veins with severe reduction of venous return. left: acute thrombosis of left cephatlic vein with severe reduction of venous return". Therapeutic lovenox started -> 90mg q12 sc. 11/20: s/p venous duplex of lower extremeties: negative 11/19: GI to perform EUS tomorrow. Advanced diet to liquid - will advance as tolerated. B/l upper and lower extremity duplex scans were ordered today. 11/18: Patient is s/p EGD/Colonoscopy. A 10cm partially obstructing sigmoid mass was seen and biopsied. Multiple polyps were seen and resected. Heme/Onc, Dr Garcia has been consulted, we will follow up with his recommendations. CT chest abdomen and pelvis findings as noted: suspected sigmoid and proximal rectum mass lesion without evidence of high grade bowel obstruction; suspected abscess formation; cystic mass lesion noted at pancreas with surrounding fat stranding of the pancreatic tail; large gallstones without evidence of acute cholecystitis GI consult (Dr. Srivastava)---> Help appreciated General Surgery Consult (Dr. Amin)----> Help appreciated Urology Consult (Dr. Jon)----> Help appreciated Status: Acute Acute deep vein thrombosis (DVT) of right upper extremity Assessment & Plan: Continue therapeutic Lovenox at 90 mg SC Q12H 11/29: Heparin Drip was discontinued on 11/28/16 as PTT could not be measured secondary to inability to draw blood from edematous arms and could not draw blood from left arm PICC for the PTT level due to the Heprin Drip being infused through the PICC. Therefore patient was restarted on therapeutic Lovenox at 90 mg SC Q12H 11/27: Heparin drip restarted at 18u/kg/hr. Heparin bolus 8,000u given prior to start of drip. 11/26: Per surgery, plan is to restart anticoagulant tomorrow morning Status: Acute Hypotension Assessment & Plan: Continued hypotension, started on Midodrin 2.5mg PO TID Status: Acute Pancreatic lesion Assessment & Plan: GI outpatient follow-up 11/26: Pancreatic cyst FNA negative for malignant cells per cytology report. 11/25: Per manager labor relations, EUS performed on 11/20 sampled pancreatic cyst fluid with diagnostic studies ordered for ptf amylase and ptfCEA only 11/20: Upper EUS performed today: "75mm x 65mm psedocyst seen in pancreatic body , fine needle aspiration for fluid performed 11/18: CT abd/pelvis shows cystic mass lesion at pancreas with fat stranding of pacreatic tail. Lipase level and lipid panel was ordered today. 11/17: CA 19-9 wnl Status: Acute Uncontrolled diabetes mellitus Assessment & Plan: Levemir 15 units SC HS---> DC due to continue hypoglycemic events and decreased appetite. Recent HgbA1C: 11.5 (11/20/16) Accuchecks Aspart ISS - low Status: Chronic Esophageal abrasion Assessment & Plan: 11/18: Per endoscopy report * Ulcerated mucosa in the lower third of the esophagus was seen and biopsied. Pathology negative for h pylori. * Patient is on Protonix 40 mg PO BID. Status: Acute Cholelithiasis Assessment & Plan: GI outpatient follow-up 11/18: CT abd/pelvis shows large gallstones without evidence of acute cholecystitis. Denies abd pain Status: Acute Abnormal cardiovascular stress test Assessment & Plan: Cardiology outpatient follow-up 11/25: Nuclear Stress Test: Defect in mid-anteroseptal wall, defect in basal inferoseptal wall, fixed apical defect old GA, small defect inferior wall 11/25: ECHO: left ventricle systolic function is normal. EF is 50-55%. Status: Acute Major Depressive Disorder Assessment & Plan: Dr. Loredo consulted, help appreciated Zoloft 50mg PO daily Psychoeducation Status: Acute Prophylactic measure Assessment & Plan: Protonix 40 mg PO BID Lovenox 90mg IV q12H Florastor PO BID Ambien 5 mg PO HS Marinol PO daily Physical Therapy started on 11/29/16 Q2H repositioning Status: Acute DW Rafael Stoddard DO, PGY-1 <Blanco Rivera M - Last Filed: 12/22/16 14:57> Objective - Vital Signs/Intake and Output Vital Signs (last 24 hours): Temp Pulse Resp BP Pulse Ox 97.9 F 95 H 20 106/69 98 12/22/16 08:04 12/22/16 08:04 12/22/16 08:04 12/22/16 08:04 12/22/16 08:04 Intake and Output: 12/22/16 12/22/16 06:59 18:59 Intake Total 300 Output Total 810 Balance -510 - Medications Medications: Current Medications Calcium Carbonate (Tums) 500 mg PO BID [facility] Last Admin: 12/22/16 11:38 Dose: 500 mg Cholestyramine Resin (Questran) 4 gm PO Q12 [facility] Last Admin: 12/22/16 11:37 Dose: 4 gm Dronabinol (Marinol) 2.5 mg PO BID [facility] Last Admin: 12/22/16 11:31 Dose: 2.5 mg Enoxaparin Sodium (Lovenox) 90 mg SC Q12 [facility] Last Admin: 12/22/16 11:33 Dose: 90 mg Gabapentin (Neurontin) 100 mg PO TID [facility] Last Admin: 12/22/16 14:55 Dose: 100 mg Hydromorphone HCl (Dilaudid) 1 mg IVP Q4H PRN PRN Reason: Pain, severe (8-10) Imipenem/Cilastatin Sodium 500 (mg/ Sodium Chloride) 100 mls @ 100 mls/hr IVPB Q6H [facility] Last Admin: 12/22/16 12:00 Dose: 100 mls/hr Gentamicin Sulfate 80 mg/ (Sodium Chloride) 102 mls @ 100 mls/hr IVPB Q12H [facility] Last Admin: 12/22/16 10:00 Dose: 100 mls/hr Linezolid (Zyvox 600mg/300ml D5w) 600 mg in 300 mls @ 200 mls/hr IVPB Q12 [facility] Last Admin: 12/21/16 22:30 Dose: 200 mls/hr Insulin Aspart (Novolog) 0 unit SC ACHS DOREEN PRN Reason: Protocol Last Admin: 12/22/16 12:18 Dose: 2 unit Loperamide HCl (Imodium) 2 mg PO QID PRN PRN Reason: Diarrhea Last Admin: 12/21/16 10:57 Dose: 2 mg Midodrine (Proamatine) 2.5 mg PO TID [facility] Last Admin: 12/22/16 14:55 Dose: 2.5 mg Morphine Sulfate (Morphine) 2 mg IVP Q4 PRN PRN Reason: Pain, moderate (4-7) Ondansetron HCl (Zofran Inj) 4 mg IVP Q6H PRN PRN Reason: Nausea/Vomiting Last Admin: 11/28/16 12:06 Dose: 4 mg Oxycodone HCl (Oxycontin Extended Release Tab) 10 mg PO Q12 [facility] Stop: 12/24/16 10:01 Last Admin: 12/22/16 11:40 Dose: 10 mg Pantoprazole Sodium (Protonix Ec Tab) 40 mg PO DAILY [facility] Last Admin: 12/22/16 11:31 Dose: 40 mg Saccharomyces Boulardii (Florastor) 250 mg PO BID [facility] Last Admin: 12/22/16 11:31 Dose: 250 mg Zolpidem Tartrate (Ambien) 5 mg PO HS [facility] Last Admin: 12/21/16 22:26 Dose: 5 mg - Labs Labs: 12/21/16 06:30 12/21/16 06:30 PT 15.0 SECONDS (9.7-12.2) H 12/03/16 07:08 INR 1.3 12/03/16 07:08 APTT 37 SECONDS (21-34) H 12/03/16 07:08 Attending/Attestation - Attestation I have personally seen and examined this patient.: Yes I have fully participated in the care of the patient.: Yes I have reviewed all pertinent clinical information, including history, physical exam and plan: Yes Notes (Text): 12/22/16 14:57 Patient was seen and examined at bedside with the resident Patient appears lethargic and somnolent However he denies any pain We will continue IV antibiotics Patient is being evaluated for hospice DNR/DNI status noted I discussed the plan of care with the resident and agree with the assessment and plan documented.
[2016-12-22] MEDS: (Novolog) Insulin Aspart, Recombinant 100 u/ml 10 ml vial SC SCH ×4 (08:30→22:26)
[2016-12-22] MEDS: Linezolid 600 mg in D5W 300 ml 600 MG/300 ML BAG IVPB SCH ×2 (10:00→22:30)
[2016-12-22] MEDS: Saccharomyces Boulardi 250 mg Cap PO SCH ×2 (11:31→18:17)
[2016-12-22] MEDS: Pantoprazole 40 mg EC Tab PO SCH (11:31)
[2016-12-22] MEDS: Enoxaparin 120 mg Syringe SC SCH ×2 (11:33→22:20)
[2016-12-22] MEDS: Cholestyramine 4 gm/Pkt UD PO SCH ×2 (11:37→22:21)
[2016-12-22] MEDS: Calcium Carbonate 500 mg Chewable Antacid Tab PO SCH ×2 (11:38→18:24)
[2016-12-22] MEDS: oxyCODONE 10 mg ER Tab (oxyCONTIN) PO SCH ×3 (11:40→23:00)
[2016-12-23 01:05] VITALS: BP 110/70; PULSE 100; TEMP 98.4; O2SAT 99
[2016-12-23] MEDS: (Novolog) Insulin Aspart, Recombinant 100 u/ml 10 ml vial SC SCH ×3 (08:55→17:50)
[2016-12-23] MEDS: Enoxaparin 120 mg Syringe SC SCH (10:32)
[2016-12-23] MEDS: Linezolid 600 mg in D5W 300 ml 600 MG/300 ML BAG IVPB SCH (10:32)
[2016-12-23] MEDS: Calcium Carbonate 500 mg Chewable Antacid Tab PO SCH ×2 (10:52→17:50)
[2016-12-23] MEDS: Saccharomyces Boulardi 250 mg Cap PO SCH ×2 (10:52→17:49)
[2016-12-23] MEDS: oxyCODONE 10 mg ER Tab (oxyCONTIN) PO SCH (10:52)
[2016-12-23] MEDS: Pantoprazole 40 mg EC Tab PO SCH (10:52)
[2016-12-23] MEDS: Cholestyramine 4 gm/Pkt UD PO SCH (10:52)
--- NOTE | 2016-12-23 14:08 | CP.PCM.PN ---
<Simin Hall - Last Filed: 12/23/16 14:05> Subjective - Date & Time of Evaluation Date of Evaluation: 12/23/16 Time of Evaluation: 07:00 - Subjective Subjective: Medicine Note for Dr. Cai Patient was seen and examined at bedside. Nurse reported patient is in pain, but refused pain medications. Patient was grunting in pain, but would not respond to my questions. He was asked several times if he would want something for pain, but he did not respond. Objective - Vital Signs/Intake and Output Vital Signs (last 24 hours): Temp Pulse Resp BP Pulse Ox 98.4 F 100 H 20 110/70 99 12/22/16 23:25 12/22/16 23:25 12/22/16 23:25 12/22/16 23:25 12/22/16 23:25 Intake and Output: 12/23/16 12/23/16 06:59 18:59 Intake Total 500 Output Total 610 Balance -110 - Medications Medications: Current Medications Calcium Carbonate (Tums) 500 mg PO BID [facility] Last Admin: 12/23/16 10:52 Dose: Not Given Cholestyramine Resin (Questran) 4 gm PO Q12 [facility] Last Admin: 12/23/16 10:52 Dose: Not Given Dronabinol (Marinol) 2.5 mg PO BID [facility] Last Admin: 12/23/16 10:52 Dose: Not Given Enoxaparin Sodium (Lovenox) 90 mg SC Q12 [facility] Last Admin: 12/23/16 10:32 Dose: 90 mg Fentanyl (Duragesic) 1 patch TD Q72H [facility] Last Admin: 12/23/16 10:32 Dose: 1 patch Gabapentin (Neurontin) 100 mg PO TID [facility] Last Admin: 12/23/16 13:32 Dose: Not Given Hydromorphone HCl (Dilaudid) 1 mg IVP Q4H PRN PRN Reason: Pain, severe (8-10) Imipenem/Cilastatin Sodium 500 (mg/ Sodium Chloride) 100 mls @ 100 mls/hr IVPB Q6H [facility] Last Admin: 12/23/16 06:02 Dose: 100 mls/hr Gentamicin Sulfate 80 mg/ (Sodium Chloride) 102 mls @ 100 mls/hr IVPB Q12H [facility] Last Admin: 12/23/16 10:52 Dose: Not Given Linezolid (Zyvox 600mg/300ml D5w) 600 mg in 300 mls @ 200 mls/hr IVPB Q12 [facility] Last Admin: 12/23/16 10:32 Dose: 200 mls/hr Insulin Aspart (Novolog) 0 unit SC ACHS DOREEN PRN Reason: Protocol Last Admin: 12/23/16 12:28 Dose: Not Given Loperamide HCl (Imodium) 2 mg PO QID PRN PRN Reason: Diarrhea Last Admin: 12/21/16 10:57 Dose: 2 mg Midodrine (Proamatine) 2.5 mg PO TID [facility] Last Admin: 12/23/16 10:32 Dose: 2.5 mg Morphine Sulfate (Morphine) 2 mg IVP Q4 PRN PRN Reason: Pain, moderate (4-7) Ondansetron HCl (Zofran Inj) 4 mg IVP Q6H PRN PRN Reason: Nausea/Vomiting Last Admin: 11/28/16 12:06 Dose: 4 mg Oxycodone HCl (Oxycontin Extended Release Tab) 10 mg PO Q12 [facility] Stop: 12/24/16 10:01 Last Admin: 12/23/16 10:52 Dose: Not Given Pantoprazole Sodium (Protonix Ec Tab) 40 mg PO DAILY [facility] Last Admin: 12/23/16 10:52 Dose: Not Given Saccharomyces Boulardii (Florastor) 250 mg PO BID [facility] Last Admin: 12/23/16 10:52 Dose: Not Given Zolpidem Tartrate (Ambien) 5 mg PO HS [facility] Last Admin: 12/22/16 22:21 Dose: 5 mg - Labs Labs: 12/21/16 06:30 12/21/16 06:30 PT 15.0 SECONDS (9.7-12.2) H 12/03/16 07:08 INR 1.3 12/03/16 07:08 APTT 37 SECONDS (21-34) H 12/03/16 07:08 - Constitutional Appears: Toxic, In Acute Distress, Chronically Ill - ENT Exam ENT Exam: Mucous Membranes Dry - Respiratory Exam Respiratory Exam: Decreased Breath Sounds - Cardiovascular Exam Cardiovascular Exam: Tachycardia - GI/Abdominal Exam GI & Abdominal Exam: Soft, Normal Bowel Sounds Additional comments: CRYS drain in place - Extremities Exam Extremities Exam: Pedal Edema Additional comments: ANASARCA, all extremities extremely swollen Assessment and Plan - Assessment and Plan (Free Text) Plan: Disposition: Family is at bedside. Department Chair was used Brittni # [id number] to explain the patient's condition and prognosis as well as to answer any of their questions. Patient was made DNR/DNI during this admission. [facility], wait time 2 weeks for approval. Patient refused any pain medications. A Fentyl patch was placed for comfort. Prognosis is poor. Bacteremia Assessment & Plan: Continues to be tachycardic, normotensive with few episodes of hypotension. Afebrile since 12/06/16 CT abd/pelvis 12/07 showed enlargement of pelvic abscess, will consult IR for possible draining of abscess. 12/10: IR consulted for pelvic abscess drainage. Mass has increased from 8.4 x 6.9 x x 6.7 (11/16) to 12 x 15 x 8.5 (12/07). Continues to drain. Blood and urine cultures 12/17/16, + VRE in both cultures. PICC LINE REMOVED 12/20 Started on Zyvox Q12H 12/19/16, continue Primaxin 400mg IVPB Q6 hours (started 12/06/16), Gentamicin Q12H started 12/15/1612/06: Tachycardia, hypotensive, with bandemia at 27. Pt was jesus cultured. DC Rocephin. Was given a stat dose of Gentamycin and restarted on Primaxin. Possible source PICC line or RIJ Portacath. 11/30/17: As per ID, Repeat blood culture was negative, Primaxin and Flagyl was discontinued (11/29/16). Ceftriaxone 2 gm IV Q24H for 14 days starting 11/29/16 11/29/16: E. coli in blood culture on 11/15/16. Repeat blood culture on 11/23/16 was finalized as negative. I will speak with ID Dr. Burns concerning how much longer we need to continue the Primaxin and Flagyl 11/27: wbc trending down. afebrile. will continue primaxin and flagyl and monitor bands and wbc. Blood cultures negative after 3 days. 11/26: Patient in ICU for monitoring post OR, Bands 12 today, will monitor. 11/25: Blood cultures are negative after [address] Burns, con't tx for minimum of 14 days; Primaxin and Flagyl both started on 11/17. 11/19: HIV screen negative, Hep panel negative. Bands 26 today. 11/17: Changed to IV Primaxin 500mg IV Q6 Follow cultures. Currently blood pressure and HR stable. Nonfebrile. Continue with the IVF, monitor lowe outputs Status: Acute Pelvic Abscess Assessment & Plan: 12/10: IR consulted for pelvic abscess drainage . Mass has increased from 8.4 x 6.9 x x 6.7 (11/16) to 12 x 15 x 8.5 (12/07). CRYS drain in place. Continues to drain. Status: Acute Anemia of chronic disease Assessment & Plan: Hemoglobin continues to be stable. Continue to monitor Patient was transfused 2 units PRBCs on 12/13/16 S/P transfusion total 2 units PRBCs 12/06 SOLE LEVELER was called on patient 12/04/16 due hypotension. Lasix was discontinued. He was given a fluid bolus, albumin and continued with the 1 unit of PRBCs. Patient was given albumin again today. And will be transfused another unit of PRBCs due to hemoglobin of 7.8. H/H was 7.7/27.4 - Consent retrieved- patient will be transfused 1 unit of PRBCs 11/26: After discussing with Heme/Onc Dr Garcia, since Ferritin is normal ferrlecit will not provide much benefit, will discontinue 11/25: Will start Ferrlecit 125mg iv daily after surgical procedure 11/25: Hgb stable at 8.6. Status: Acute Pleural Effusions Assessment & Plan: Repeated CXR 12/10/16 which is unchanged from previous on 12/06, bilateral pleural effusions R>L are stable. Repeat CXR (12/06) shows: Decreased bilateral pleural effusion. Probable linear atelectasis at left base. 12/07 CXR 12/02 compared to 11/15 --> B/L pleural effusions R>L. Was placed on lasix 20mg IVP Q12. Pulmonology consulted, Dr. Mccormick - patient is for thoracentesis. IR reported not enough fluid for thoracentesis. 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 12/06 C diff negative - Immodium added Stool culture negative for salmonella, shigella, campylobacter Stool leukocytes negative Ova and parasites not seen S/P RIJ Portacath insertion (12/03), s/p exploratory laparotomy (11/26) POD#10, w/ findings of unresectable rectosigmoid mass. 12/02/16 POD #6; Surgery will remove abdominal incision jody on POD #10. Surgery reconsulted for portacath placement. NPO past midnight tonight for OR tomorrow morning. 11/30/16: POD # 4: As per conversation with Dr. Lake Harris on 11/29/16, patient has decided to be DNR/DNI 11/29/16: POD #3. Patient is still undecided concerning further management. If he decides to proceed then he will need a Chemo Port placed. He has signed DNR/ DNI. I discussed patient's decision concerning further treatment with Dr. Willow Garcia on the night of 11/28/1611/28: s/p exploratory laparotomy POD2, w/ findings of unresectable rectosigmoid mass. Patient stated today he does not want the chemoport, he said he wants time to think about it. Patient appears tired and he does not want to make sudden decisions. No morning labs, blood draw was difficult this morning due to poor vein access. 11/27: s/p exploratory laparotomy POD1, w/ findings of unresectable rectosigmoid mass. Per surgery note, patient will need a portacath placement, time and date to be determined. Will stop heparin drip (tx for RUE deep vein thrombosis) 4 hours prior to portacath placement procedure. 11/26: Per rn neurosurgical, the surgery today to resect patient's sigmoid mass was halted after it was determined the mass was too large/firm for removal. The patient will be treated with a neoadjuvant with hopes of shrinking the size of the tumor with possible surgery for removal at a later date. Patient was sent to ICU post OR for monitoring. 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 Due to lovenox longer half life, therapeutic lovenox was discontinued and heparin was started. Heparin 8000u iv bolus was given and heparin drip was started at 18u/kg/hr. This drip will be stopped at exactly 5am, 4 hours before surgery. 11/21: Pt s/p cystoscopy today. Patient found to have invasion to dome of urinary bladder. Surgery to plan for surgery some time next week 11/21: Per GI, Abdominal U/S obtained to rule out SV thrombosis given presence of gastroesopahgeal varices seen on endoscopic examination -> Abdominal U/S: 1. Hepatocellular disease without focal hepatic mass. 2. Patent portal venous system including splenic vein. 3. Cholelithiasis. No sonographic evidence of acute cholecystitis. 4. Cystic mass in the head of the pancreas. Remainder the pancreas is not visualized. 11/21: PICC placed today by IR DR Armando. 11/20: s/p upper EUS: "LA grade C erosive esophagitis. 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 75mm x 65mm psedocyst seen in pancreatic body, fine needle aspiration for fluid performed. Varices were visualized endosonographically in fundus of stomach". Will f/u cystology and CEA levels. 11/20: s/p venous duplex of upper extremities: "right: acute thrombosis of right subclavian, axillary and brachial veins with severe reduction of venous return. left: acute thrombosis of left cephatlic vein with severe reduction of venous return". Therapeutic lovenox started -> 90mg q12 sc. 11/20: s/p venous duplex of lower extremeties: negative 11/19: GI to perform EUS tomorrow. Advanced diet to liquid - will advance as tolerated. B/l upper and lower extremity duplex scans were ordered today. 11/18: Patient is s/p EGD/Colonoscopy. A 10cm partially obstructing sigmoid mass was seen and biopsied. Multiple polyps were seen and resected. Heme/Onc, Dr Garcia has been consulted, we will follow up with his recommendations. CT chest abdomen and pelvis findings as noted: suspected sigmoid and proximal rectum mass lesion without evidence of high grade bowel obstruction; suspected abscess formation; cystic mass lesion noted at pancreas with surrounding fat stranding of the pancreatic tail; large gallstones without evidence of acute cholecystitis GI consult (Dr. Srivastava)---> Help appreciated General Surgery Consult (Dr. Amin)----> Help appreciated Urology Consult (Dr. Jon)----> Help appreciated Status: Acute Acute deep vein thrombosis (DVT) of right upper extremity Assessment & Plan: Continue therapeutic Lovenox at 90 mg SC Q12H 11/29: Heparin Drip was discontinued on 11/28/16 as PTT could not be measured secondary to inability to draw blood from edematous arms and could not draw blood from left arm PICC for the PTT level due to the Heprin Drip being infused through the PICC. Therefore patient was restarted on therapeutic Lovenox at 90 mg SC Q12H 11/27: Heparin drip restarted at 18u/kg/hr. Heparin bolus 8,000u given prior to start of drip. 11/26: Per surgery, plan is to restart anticoagulant tomorrow morning Status: Acute Hypotension Assessment & Plan: Continued hypotension, started on Midodrin 2.5mg PO TID Status: Acute Pancreatic lesion Assessment & Plan: GI outpatient follow-up 11/26: Pancreatic cyst FNA negative for malignant cells per cytology report. 11/25: Per skilled labor, EUS performed on 11/20 sampled pancreatic cyst fluid with diagnostic studies ordered for ptf amylase and ptfCEA only 11/20: Upper EUS performed today: "75mm x 65mm psedocyst seen in pancreatic body , fine needle aspiration for fluid performed 11/18: CT abd/pelvis shows cystic mass lesion at pancreas with fat stranding of pacreatic tail. Lipase level and lipid panel was ordered today. 11/17: CA 19-9 wnl Status: Acute Uncontrolled diabetes mellitus Assessment & Plan: Levemir 15 units SC HS---> DC due to continue hypoglycemic events and decreased appetite. Recent HgbA1C: 11.5 (11/20/16) Accuchecks Aspart ISS - low Status: Chronic Esophageal abrasion Assessment & Plan: 11/18: Per endoscopy report * Ulcerated mucosa in the lower third of the esophagus was seen and biopsied. Pathology negative for h pylori. * Patient is on Protonix 40 mg PO BID. Status: Acute Cholelithiasis Assessment & Plan: GI outpatient follow-up 11/18: CT abd/pelvis shows large gallstones without evidence of acute cholecystitis. Denies abd pain Status: Acute Abnormal cardiovascular stress test Assessment & Plan: Cardiology outpatient follow-up 11/25: Nuclear Stress Test: Defect in mid-anteroseptal wall, defect in basal inferoseptal wall, fixed apical defect old UT, small defect inferior wall 11/25: ECHO: left ventricle systolic function is normal. EF is 50-55%. Status: Acute Major Depressive Disorder Assessment & Plan: Dr. Loredo consulted, help appreciated Zoloft 50mg PO daily Psychoeducation Status: Acute Prophylactic measure Assessment & Plan: Protonix 40 mg PO BID Lovenox 90mg IV q12H Florastor PO BID Ambien 5 mg PO HS Marinol PO daily Physical Therapy started on 11/29/16 Q2H repositioning Status: Acute DW Rafael Espinoza DO, PGY-1 <Abdiel Cai H - Last Filed: 12/23/16 15:25> Objective - Vital Signs/Intake and Output Vital Signs (last 24 hours): Temp Pulse Resp BP Pulse Ox 98.4 F 100 H 20 110/70 99 12/22/16 23:25 12/22/16 23:25 12/22/16 23:25 12/22/16 23:25 12/22/16 23:25 Intake and Output: 12/23/16 12/23/16 06:59 18:59 Intake Total 500 15 Output Total 610 30 Balance -110 -15 - Medications Medications: Current Medications Calcium Carbonate (Tums) 500 mg PO BID [facility] Last Admin: 12/23/16 10:52 Dose: Not Given Cholestyramine Resin (Questran) 4 gm PO Q12 [facility] Last Admin: 12/23/16 10:52 Dose: Not Given Dronabinol (Marinol) 2.5 mg PO BID [facility] Last Admin: 12/23/16 10:52 Dose: Not Given Enoxaparin Sodium (Lovenox) 90 mg SC Q12 [facility] Last Admin: 12/23/16 10:32 Dose: 90 mg Fentanyl (Duragesic) 1 patch TD Q72H [facility] Last Admin: 12/23/16 10:32 Dose: 1 patch Gabapentin (Neurontin) 100 mg PO TID [facility] Last Admin: 12/23/16 13:32 Dose: Not Given Hydromorphone HCl (Dilaudid) 1 mg IVP Q4H PRN PRN Reason: Pain, severe (8-10) Imipenem/Cilastatin Sodium 500 (mg/ Sodium Chloride) 100 mls @ 100 mls/hr IVPB Q6H [facility] Last Admin: 12/23/16 14:20 Dose: Not Given Linezolid (Zyvox 600mg/300ml D5w) 600 mg in 300 mls @ 200 mls/hr IVPB Q12 [facility] Last Admin: 12/23/16 10:32 Dose: 200 mls/hr Insulin Aspart (Novolog) 0 unit SC ACHS DOREEN PRN Reason: Protocol Last Admin: 12/23/16 12:28 Dose: Not Given Loperamide HCl (Imodium) 2 mg PO QID PRN PRN Reason: Diarrhea Last Admin: 12/21/16 10:57 Dose: 2 mg Midodrine (Proamatine) 2.5 mg PO TID [facility] Last Admin: 12/23/16 14:27 Dose: Not Given Morphine Sulfate (Morphine) 2 mg IVP Q4 PRN PRN Reason: Pain, moderate (4-7) Ondansetron HCl (Zofran Inj) 4 mg IVP Q6H PRN PRN Reason: Nausea/Vomiting Last Admin: 11/28/16 12:06 Dose: 4 mg Pantoprazole Sodium (Protonix Ec Tab) 40 mg PO DAILY [facility] Last Admin: 12/23/16 10:52 Dose: Not Given Saccharomyces Boulardii (Florastor) 250 mg PO BID [facility] Last Admin: 12/23/16 10:52 Dose: Not Given Zolpidem Tartrate (Ambien) 5 mg PO HS [facility] Last Admin: 12/22/16 22:21 Dose: 5 mg - Labs Labs: 12/21/16 06:30 12/21/16 06:30 PT 15.0 SECONDS (9.7-12.2) H 12/03/16 07:08 INR 1.3 12/03/16 07:08 APTT 37 SECONDS (21-34) H 12/03/16 07:08 Attending/Attestation - Attestation I have personally seen and examined this patient.: Yes I have fully participated in the care of the patient.: Yes I have reviewed all pertinent clinical information, including history, physical exam and plan: Yes Notes (Text): 12/23/16 15:23 Medical attending: Patient was seen and examined by me, agrees the above note by bilingual medical receptionist. There was a person who identified herself as a friend in the room. The patient was awake, he was verbal he appeared to be in pain and discomfort as well. He is not making any sense I spoke with him. According to nursing they' ve had trouble trying to acquire blood pressure. Earlier when they try to offer him pain medication the patient refused when I saw him with the bilingual medical receptionist team the patient appeared visually uncomfortable. With palpation of the stomach on exam he had some pain as well. It has been explained to me that he completely refused oral medication including his oral pain medication and has been difficult to convince to give pain medication, also he does not have any IV access at this time both his arms and legs have heavy pitting edema. He is not able to answer any questions appropriately, he does appear to be in pain when I saw him. At this time to try fentanyl patch, potentially in the future he may need IM pain medication or IM benzodiazepine to help as well. Overall prognosis is extremely poor. The patient is DNR and DNI. The patient is currently under hospice review at this time Thank you very much, Abdiel Cai
--- NOTE | 2016-12-23 18:53 | CP.PCM.PRO ---
Pronouncement of Note - Clinical Findings Physical Exam: No Response Verbal/Painful Stimuli, Absent Peripheral Pulses{ Carotid & Femoral}, Absent Heart & Breath Sounds, No Pupillary Light Reflex, No Corneal Reflex, Pupils Fixed & Dilated - Pronouncement Time Time of Pronouncement of : 18:45 - Notifications Pronouncement Notifications: Family Notified, Atending Notified Tying In Machine Operator Notified: No - Autopsy Autopsy Requested: No - [place] Additional Comments: Called to see pt: unrepsonive/pulseless. Pupils fixed and dialated. no breath sounds, no heart sounds auscultated. pulses unable to be palpated. patient pronounced at 6:45pm on 12/23/2016. Attending notified. notified at bedside.
--- NOTE | 2016-12-23 18:57 | CP.PCM.DIS ---
<AakashvinAlon S - Last Filed: 12/23/16 18:55> Provider - Provider Date of Admission: 11/16/16 02:23 Attending physician: Abdiel Cai DO Time Spent in preparation of Discharge (in minutes): 35 Diagnosis - Discharge Diagnosis (1) Colon cancer Status: Acute Hospital Course - Lab Results Lab Results: Micro Results 12/16/16 04:00 Blood Blood Culture - Final NO GROWTH AFTER 5 DAYS 12/16/16 04:00 Blood Gram Stain - Final TEST NOT PERFORMED 12/17/16 13:20 Blood Blood Culture - Final Escherichia Coli Vancomycin Resistant E.faecium 12/17/16 13:20 Blood Gram Stain - Final 12/16/16 04:00 Blood Blood Culture - Final NO GROWTH AFTER 5 DAYS 12/16/16 04:00 Blood Gram Stain - Final TEST NOT PERFORMED 12/18/16 05:32 Urine,Catheterized Urine Culture - Final Enterococcus Faecium 12/14/16 11:05 Blood-Venous Blood Culture - Final NO GROWTH AFTER 5 DAYS 12/14/16 11:05 Blood-Venous Gram Stain - Final TEST NOT PERFORMED 12/17/16 13:00 Blood Blood Culture - Final Vancomycin Resistant E.faecium 12/17/16 13:00 Blood Gram Stain - Final 12/14/16 10:35 Blood-Venous S.aureus & Coag-Neg Staph PNA FISH - Final 12/14/16 10:35 Blood-Venous Blood Culture - Final Vancomycin Resistant E.faecium 12/14/16 10:35 Blood-Venous Gram Stain - Final 12/14/16 14:50 Urine Urine Culture - Final No Growth (<1,000 CFU/ML) 12/10/16 07:22 Blood-Venous Blood Culture - Final NO GROWTH AFTER 5 DAYS 12/10/16 07:22 Blood-Venous Gram Stain - Final TEST NOT PERFORMED 12/10/16 07:58 Blood-Venous Blood Culture - Final NO GROWTH AFTER 5 DAYS 12/10/16 07:58 Blood-Venous Gram Stain - Final TEST NOT PERFORMED 12/10/16 11:18 Abdominal Fluid Gram Stain - Final 12/10/16 11:18 Abdominal Fluid Body Fluid Culture - Final Escherichia Coli 12/06/16 10:41 Blood-Venous Blood Culture - Final NO GROWTH AFTER 5 DAYS 12/06/16 10:41 Blood-Venous Gram Stain - Final TEST NOT PERFORMED 12/10/16 08:26 Urine,Lowe Urine Culture - Final No Growth (<1,000 CFU/ML) 12/06/16 10:41 Blood-Venous Blood Culture - Final Escherichia Coli 12/06/16 10:41 Blood-Venous Gram Stain - Final 12/06/16 11:08 Urine,Lowe Urine Culture - Final Vancomycin Resistant E.faecium 12/03/16 06:00 Nose MRSA Culture - Final MRSA NOT DETECTED 11/23/16 18:00 Blood-Venous Blood Culture - Final NO GROWTH AFTER 5 DAYS 11/23/16 18:00 Blood-Venous Gram Stain - Final TEST NOT PERFORMED 11/23/16 20:00 Blood-Venous Blood Culture - Final NO GROWTH AFTER 5 DAYS 11/23/16 20:00 Blood-Venous Gram Stain - Final 11/26/16 Unknown Nose MRSA Culture (Admit) - Final MRSA NOT DETECTED 11/26/16 11:00 Rectum Ova and Parasite Concentrate Exam - Final 11/25/16 09:51 Stool Ova and Parasite Concentrate Exam - Final 11/18/16 Unknown Urine,Lowe Urine Culture - Final No Growth (<1,000 CFU/ML) 11/16/16 Unknown Stool Stool Culture - Final NO SALMONELLA, SHIGELLA OR CAMPYLOBACTER ISOLATED. 11/16/16 Unknown Urine Urine Culture - Final MULTIPLE SPECIES. SUGGEST REPEAT SPECIMEN. 11/16/16 Unknown Stool Ova and Parasite Concentrate Exam - Final Most Recent Lab Values WBC 12.0 K/uL (4.8-10.8) H 12/21/16 06:30 RBC 3.46 Mil/uL (4.40-5.90) L 12/21/16 06:30 Hgb 9.3 g/dL (12.0-18.0) L 12/21/16 06:30 Hct 28.9 % (35.0-51.0) L 12/21/16 06:30 MCV 83.6 fL (80.0-94.0) 12/21/16 06:30 MCH 26.9 pg (27.0-31.0) L 12/21/16 06:30 MCHC 32.2 g/dL (33.0-37.0) L 12/21/16 06:30 RDW 21.2 % (11.5-14.5) H 12/21/16 06:30 Plt Count 188 K/uL (130-400) 12/21/16 06:30 MPV 8.6 fL (7.2-11.7) 12/21/16 06:30 Neut % (Auto) 86.4 % (50.0-75.0) H 12/21/16 06:30 Lymph % (Auto) 6.5 % (20.0-40.0) L 12/21/16 06:30 Moore % (Auto) 6.9 % (0.0-10.0) 12/21/16 06:30 Eos % (Auto) 0.1 % (0.0-4.0) 12/21/16 06:30 Baso % (Auto) 0.1 % (0.0-2.0) 12/21/16 06:30 Neut # 10.4 K/uL (1.8-7.0) H 12/21/16 06:30 Lymph # 0.8 K/uL (1.0-4.3) L 12/21/16 06:30 Moore # 0.8 K/uL (0.0-0.8) 12/21/16 06:30 Eos # 0.0 K/uL (0.0-0.7) 12/21/16 06:30 Baso # 0.0 K/uL (0.0-0.2) 12/21/16 06:30 Neutrophils % (Manual) 64 % (50-75) 12/21/16 06:30 Band Neutrophils % 26 % (0-2) H* 12/21/16 06:30 Lymphocytes % (Manual) 2 % (20-40) L 12/21/16 06:30 Reactive Lymphs % TEST NOT PERFORMED 11/26/16 12:10 Monocytes % (Manual) 8 % (0-10) 12/21/16 06:30 Eosinophils % (Manual) 1 % (0-4) 12/18/16 07:08 Differential Comment 12/03/16 13:32 Toxic Granulation Present 12/06/16 07:20 Platelet Estimate Normal (NORMAL) 12/21/16 06:30 Plt Clumps, EDTA Present 11/15/16 22:04 Large Platelets Present 12/21/16 06:30 Giant Platelets Present 12/11/16 07:04 Polychromasia Slight 12/16/16 07:18 Hypochromasia (manual) Slight 12/21/16 06:30 Poikilocytosis (manual Slight 12/21/16 06:30 Anisocytosis (manual) Moderate 12/21/16 06:30 Microcytosis (manual) Slight 12/16/16 07:18 Macrocytosis (manual) Slight 12/08/16 07:15 Target Cells Slight 12/16/16 07:18 Tear Drop Cells Slight 12/21/16 06:30 Ovalocytes Slight 12/21/16 06:30 [place] Cells Slight 12/10/16 07:59 Schistocytes Slight 12/08/16 07:15 Retic Count 1.0 % (0.5-1.5) 11/20/16 06:43 Hemoglobin A 97.3 Percent (>96.0) 11/20/16 06:43 Hemoglobin A2 1.7 Percent (1.8-3.5) L 11/20/16 06:43 Hemoglobin C 0.0 Percent (0.0-0.0) 11/20/16 06:43 Hemoglobin F () <1.0 Percent (<2.0) 11/20/16 06:43 Hemoglobin S 0.0 Percent (0.0-0.0) 11/20/16 06:43 Variant Hemoglobin 0.0 Percent (0.0-0.0) 11/20/16 06:43 Hemoglobinopathy Red Blood Count 4.16 Mill/mcL (4.20-5.80) L 11/20/16 06:43 Hemoglobinopathy Hct 29.8 % (38.5-50.0) L 11/20/16 06:43 Hemoglobinopathy Hgb 8.9 g/dL (13.2-17.1) L 11/20/16 06:43 Hemoglobinopathy MCV 71.6 fL (80.0-100.0) L 11/20/16 06:43 Hemoglobinopathy MCH 21.5 pg (27.0-33.0) L 11/20/16 06:43 Hemoglobinopathy RDW 23.8 % (11.0-15.0) H 11/20/16 06:43 Hemoglobinopathy Interp See note 11/20/16 06:43 PT 15.0 SECONDS (9.7-12.2) H 12/03/16 07:08 INR 1.3 12/03/16 07:08 APTT 37 SECONDS (21-34) H 12/03/16 07:08 Puncture Site Rba 11/15/16 23:00 pCO2 24 mm/Hg (35-45) L 11/15/16 23:00 pO2 108 mm/Hg (80-100) H 11/15/16 23:00 HCO3 19.9 mmol/L (21-28) L 11/15/16 23:00 ABG pH 7.44 (7.35-7.45) 11/15/16 23:00 ABG Total CO2 17.0 mmol/L (22-28) L 11/15/16 23:00 ABG O2 Saturation 96.3 % (95-98) 11/15/16 23:00 ABG Base Excess -6.4 mmol/L (-2.0-3.0) L 11/15/16 23:00 ABG Hemoglobin 11.2 g/dL (11.7-17.4) L 11/15/16 23:00 ABG Carboxyhemoglobin 0 % (0.5-1.5) L 11/15/16 23:00 POC ABG HHb (Measured) 3.7 % (0.0-5.0) 11/15/16 23:00 ABG Methemoglobin 0.9 % (0.0-3.0) 11/15/16 23:00 Matthew Test Na 11/15/16 23:00 Hgb O2 Saturation 95.4 % (95.0-98.0) 11/15/16 23:00 Sodium 136 mmol/L (132-148) 12/21/16 06:30 Potassium 3.3 mmol/L (3.6-5.2) L 12/21/16 06:30 Chloride 106 mmol/L (98-107) 12/21/16 06:30 Carbon Dioxide 21 mmol/L (22-30) L 12/21/16 06:30 Anion Gap 12 (10-20) 12/21/16 06:30 BUN 18 mg/dL (9-20) 12/21/16 06:30 Creatinine 0.4 MG/DL (0.8-1.5) L 12/21/16 06:30 Est GFR ( Amer) > 60 12/21/16 06:30 Est GFR (Non-Af Amer) > 60 12/21/16 06:30 POC Glucose (mg/dL) 45 mg/dL (65-110) L 12/23/16 16:51 Random Glucose 189 mg/dL (75-110) H 12/21/16 06:30 Hemoglobin A1c 11.5 % (4.2-6.5) H D 11/20/16 13:06 Serum Osmolality 302 mosm/kg (272-300) H 11/16/16 04:40 Lactic Acid 2.1 mmol/L (0.7-2.1) 12/06/16 11:08 Calcium 6.5 mg/dl (8.6-10.4) L 12/21/16 06:30 Phosphorus 3.3 mg/dL (2.5-4.5) 12/21/16 06:30 Magnesium 1.8 mg/dL (1.6-2.3) 12/21/16 06:30 Iron 17 ug/dL (49-181) L 11/16/16 04:40 TIBC 182 ug/dL (250-450) L 11/16/16 04:40 % Saturation 10 (20-55) L 11/16/16 04:40 Ferritin 219.0 ng/mL 11/20/16 06:43 Total Bilirubin 0.6 mg/dL (0.2-1.3) 12/21/16 06:30 AST 11 U/L (17-59) L 12/21/16 06:30 ALT 25 U/L (21-72) 12/21/16 06:30 Alkaline Phosphatase 158 U/L (38-126) H 12/21/16 06:30 Troponin I < 0.0120 ng/mL (0.00-0.120) 11/15/16 22:04 C-React Prot High Sens > 15.00 mg/L (1.00-3.00) H 11/16/16 04:40 Total Protein 4.3 g/dL (6.3-8.3) L 12/21/16 06:30 Albumin 1.4 g/dL (3.5-5.0) L 12/21/16 06:30 Globulin 2.8 gm/dL (2.2-3.9) 12/21/16 06:30 Albumin/Globulin Ratio 0.5 (1.0-2.1) L 12/21/16 06:30 Triglycerides 61 mg/dL (0-149) D 11/18/16 16:56 Cholesterol 65 mg/dL (0-199) 11/18/16 16:56 LDL Cholesterol Direct 31 mg/dL (0-129) 11/18/16 16:56 HDL Cholesterol 25 mg/dL (30-70) L 11/18/16 16:56 Lipase < 10 U/L (23-300) L 11/18/16 16:56 CA 19-9 Antigen < 1.4 U/mL (0-37) 11/16/16 04:40 Vitamin B12 982 pg/mL (239-931) H 11/20/16 06:43 Folate 5.0 ng/mL 11/20/16 06:43 Procalcitonin 0.32 NG/ML (0.19-0.49) 12/08/16 07:15 Urine Color Isabel (YELLOW) 11/16/16 06:19 Urine Clarity Hazy (Clear) 11/16/16 06:19 Urine pH 5.0 (5.0-8.0) 11/16/16 06:19 Ur Specific [place] 1.027 (1.003-1.030) 11/16/16 06:19 Urine Protein 2+ mg/dL (NEGATIVE) H 11/16/16 06:19 Urine Glucose (UA) 1+ mg/dL (Normal) H 11/16/16 06:19 Urine Ketones 2+ mg/dL (NEGATIVE) H 11/16/16 06:19 Urine Blood Negative (NEGATIVE) 11/16/16 06:19 Urine Nitrate Negative (NEGATIVE) 11/16/16 06:19 Urine Bilirubin 1+ (NEGATIVE) H 11/16/16 06:19 Urine Urobilinogen 4.0 mg/dL (0.2-1.0) 11/16/16 06:19 Ur Leukocyte Esterase 2+ Ana/uL (Negative) H 11/16/16 06:19 Urine WBC (Auto) 187 /hpf (0-5) H 11/16/16 06:19 Urine RBC (Auto) 34 /hpf (0-3) H 11/16/16 06:19 Urine WBC Clumps (Auto) Few /hpf (NONE) H 11/16/16 06:19 Ur Squamous Epith Cells < 1 /hpf (0-5) 11/16/16 06:19 Urine Bacteria Mod (<OCC) H 11/16/16 06:19 Hyaline Casts 6-10 /lpf (0-2) H 11/16/16 01:43 Urine Yeast (Budding) Few /hpf (NEGATIVE) H 11/16/16 06:19 Peritoneal Amylase 80 U/L 11/20/16 14:53 Peritoneal CEA 2 ng/mL (<2.0) H 11/20/16 14:53 Stool Leukocytes, Qual Negative (NEGATIVE) 11/16/16 Unknown Gentamicin Trough 1.7 ug/mL (0.0-0.9) H 12/17/16 06:07 Random Gentamicin 0.9 ug/mL 12/15/16 06:23 Urine Opiates Screen Negative (NEGATIVE) 11/16/16 01:43 Urine Methadone Screen Negative (NEGATIVE) 11/16/16 01:43 Ur Barbiturates Screen Negative (NEGATIVE) 11/16/16 01:43 Ur Phencyclidine Scrn Negative (NEGATIVE) 11/16/16 01:43 Ur Amphetamines Screen Negative (NEGATIVE) 11/16/16 01:43 U Benzodiazepines Scrn Negative (NEGATIVE) 11/16/16 01:43 U Oth Cocaine Metabols Negative (NEGATIVE) 11/16/16 01:43 U Cannabinoids Screen Negative (NEGATIVE) 11/16/16 01:43 Serum Ketones Moderate (NEGATIVE) 11/16/16 00:27 C. difficile Ag & Toxin Negative (NEGATIVE) 12/10/16 07:59 Hepatitis A IgM Ab Negative (NEGATIVE) 11/18/16 16:56 Hep Bs Antigen Negative (NEGATIVE) 11/18/16 16:56 Hep B Core IgM Ab Negative (NEGATIVE) 11/18/16 16:56 Hepatitis C Antibody Negative (NEGATIVE) 11/18/16 16:56 HIV 1&2 Antibody Screen Negative (NEGATIVE) 11/18/16 16:56 Blood Type O POSITIVE 12/13/16 10:38 Antibody Screen Negative 12/13/16 10:38 - Hospital Course Hospital Course: Bacteremia Assessment & Plan: Continues to be tachycardic, normotensive with few episodes of hypotension. Afebrile since 12/06/16 CT abd/pelvis 12/07 showed enlargement of pelvic abscess, will consult IR for possible draining of abscess. 12/10: IR consulted for pelvic abscess drainage. Mass has increased from 8.4 x 6.9 x x 6.7 (7/15) to 12 x 15 x 8.5 (12/07). STILL IN PLACE!! Blood and urine cultures 12/17/16, + VRE in both cultures. PICC LINE REMOVED 12/20 Started on Zyvox Q12H 12/19/16, continue Primaxin 400mg IVPB Q6 hours (started 12/06/16), Gentamicin Q12H started 12/15/1612/06: Tachycardia, hypotensive, with bandemia at 27. Pt was jesus cultured. DC Rocephin. Was given a stat dose of Gentamycin and restarted on Primaxin. Possible source PICC line or RIJ Portacath. 11/30/17: As per ID, Repeat blood culture was negative, Primaxin and Flagyl was discontinued (11/29/16). Ceftriaxone 2 gm IV Q24H for 14 days starting 11/29/16 11/29/16: E. coli in blood culture on 11/15/16. Repeat blood culture on 11/23/16 was finalized as negative. I will speak with ID Dr. Burns concerning how much longer we need to continue the Primaxin and Flagyl 11/27: wbc trending down. afebrile. will continue primaxin and flagyl and monitor bands and wbc. Blood cultures negative after 3 days. 11/26: Patient in ICU for monitoring post OR, Bands 12 today, will monitor. 11/25: Blood cultures are negative after [address] Burns, con't tx for minimum of 14 days; Primaxin and Flagyl both started on 11/17. 11/19: HIV screen negative, Hep panel negative. Bands 26 today. 11/17: Changed to IV Primaxin 500mg IV Q6 Follow cultures. Currently blood pressure and HR stable. Nonfebrile. Continue with the IVF, monitor lowe outputs Status: Acute Pelvic Abscess Assessment & Plan: 12/10: IR consulted for pelvic abscess drainage . Mass has increased from 8.4 x 6.9 x x 6.7 (11/16) to 12 x 15 x 8.5 (12/07). CRYS drain in place. Continues to drain. Status: Acute Anemia of chronic disease Assessment & Plan: Hemoglobin continues to be stable. Continue to monitor Patient was transfused 2 units PRBCs on 12/13/16 S/P transfusion total 2 units PRBCs 12/06 APPLIED PSYCHOLOGY PROFESSOR was called on patient 12/04/16 due hypotension. Lasix was discontinued. He was given a fluid bolus, albumin and continued with the 1 unit of PRBCs. Patient was given albumin again today. And will be transfused another unit of PRBCs due to hemoglobin of 7.8. H/H was 7.7/27.4 - Consent retrieved- patient will be transfused 1 unit of PRBCs 11/26: After discussing with Heme/Onc Dr Garcia, since Ferritin is normal ferrlecit will not provide much benefit, will discontinue 11/25: Will start Ferrlecit 125mg iv daily after surgical procedure 11/25: Hgb stable at 8.6. Status: Acute Pleural Effusions Assessment & Plan: Repeated CXR 12/10/16 which is unchanged from previous on 12/06, bilateral pleural effusions R>L are stable. Repeat CXR (12/06) shows: Decreased bilateral pleural effusion. Probable linear atelectasis at left base. 12/07 CXR 12/02 compared to 11/15 --> B/L pleural effusions R>L. Was placed on lasix 20mg IVP Q12. Pulmonology consulted, Dr. Mccormick - patient is for thoracentesis. IR reported not enough fluid for thoracentesis. 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 12/06 C diff negative - Immodium added Stool culture negative for salmonella, shigella, campylobacter Stool leukocytes negative Ova and parasites not seen S/P RIJ Portacath insertion (12/03), s/p exploratory laparotomy (11/26) POD#10, w/ findings of unresectable rectosigmoid mass. 12/02/16 POD #6; Surgery will remove abdominal incision jody on POD #10. Surgery reconsulted for portacath placement. NPO past midnight tonight for OR tomorrow morning. 11/30/16: POD # 4: As per conversation with Dr. Lake Harris on 11/29/16, patient has decided to be DNR/DNI 11/29/16: POD #3. Patient is still undecided concerning further management. If he decides to proceed then he will need a Chemo Port placed. He has signed DNR/ DNI. I discussed patient's decision concerning further treatment with Dr. Willow Garcia on the night of 11/28/1611/28: s/p exploratory laparotomy POD2, w/ findings of unresectable rectosigmoid mass. Patient stated today he does not want the chemoport, he said he wants time to think about it. Patient appears tired and he does not want to make sudden decisions. No morning labs, blood draw was difficult this morning due to poor vein access. 11/27: s/p exploratory laparotomy POD1, w/ findings of unresectable rectosigmoid mass. Per surgery note, patient will need a portacath placement, time and date to be determined. Will stop heparin drip (tx for RUE deep vein thrombosis) 4 hours prior to portacath placement procedure. 11/26: Per surgical coder, the surgery today to resect patient's sigmoid mass was halted after it was determined the mass was too large/firm for removal. The patient will be treated with a neoadjuvant with hopes of shrinking the size of the tumor with possible surgery for removal at a later date. Patient was sent to ICU post OR for monitoring. 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 Due to lovenox longer half life, therapeutic lovenox was discontinued and heparin was started. Heparin 8000u iv bolus was given and heparin drip was started at 18u/kg/hr. This drip will be stopped at exactly 5am, 4 hours before surgery. 11/21: Pt s/p cystoscopy today. Patient found to have invasion to dome of urinary bladder. Surgery to plan for surgery some time next week 11/21: Per GI, Abdominal U/S obtained to rule out SV thrombosis given presence of gastroesopahgeal varices seen on endoscopic examination -> Abdominal U/S: 1. Hepatocellular disease without focal hepatic mass. 2. Patent portal venous system including splenic vein. 3. Cholelithiasis. No sonographic evidence of acute cholecystitis. 4. Cystic mass in the head of the pancreas. Remainder the pancreas is not visualized. 11/21: PICC placed today by IR DR Armando. 11/20: s/p upper EUS: "LA grade C erosive esophagitis. 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 75mm x 65mm psedocyst seen in pancreatic body, fine needle aspiration for fluid performed. Varices were visualized endosonographically in fundus of stomach". Will f/u cystology and CEA levels. 11/20: s/p venous duplex of upper extremities: "right: acute thrombosis of right subclavian, axillary and brachial veins with severe reduction of venous return. left: acute thrombosis of left cephatlic vein with severe reduction of venous return". Therapeutic lovenox started -> 90mg q12 sc. 11/20: s/p venous duplex of lower extremeties: negative 11/19: GI to perform EUS tomorrow. Advanced diet to liquid - will advance as tolerated. B/l upper and lower extremity duplex scans were ordered today. 11/18: Patient is s/p EGD/Colonoscopy. A 10cm partially obstructing sigmoid mass was seen and biopsied. Multiple polyps were seen and resected. Heme/Onc, Dr Garcia has been consulted, we will follow up with his recommendations. CT chest abdomen and pelvis findings as noted: suspected sigmoid and proximal rectum mass lesion without evidence of high grade bowel obstruction; suspected abscess formation; cystic mass lesion noted at pancreas with surrounding fat stranding of the pancreatic tail; large gallstones without evidence of acute cholecystitis GI consult (Dr. Srivastava)---> Help appreciated General Surgery Consult (Dr. Amin)----> Help appreciated Urology Consult (Dr. Jon)----> Help appreciated Discharge Exam - Head Exam Head Exam: NORMAL INSPECTION, NORMOCEPHALIC - Eye Exam Pupil Exam: Fixed - Respiratory Exam Respiratory Exam: absent: NORMAL BREATHING PATTERN Additional comments: no breath sounds - Cardiovascular Exam Additional comments: no heart sounds - Additional Findings Additional findings: Called to see pt: unrepsonive/pulseless. Pupils fixed and dialated. no breath sounds, no heart sounds auscultated. pulses unable to be palpated. patient pronounced at 6:45pm on 12/23/2016. Attending notified. notified at bedside. Discharge Plan - Follow Up Plan Condition: Disposition: HOME/ ROUTINE <Abdiel Cai - Last Filed: 12/23/16 19:06> Provider - Provider Date of Admission: 11/16/16 02:23 Attending physician: Abdiel Cai DO Hospital Course - Lab Results Lab Results: Micro Results 12/16/16 04:00 Blood Blood Culture - Final NO GROWTH AFTER 5 DAYS 12/16/16 04:00 Blood Gram Stain - Final TEST NOT PERFORMED 12/17/16 13:20 Blood Blood Culture - Final Escherichia Coli Vancomycin Resistant E.faecium 12/17/16 13:20 Blood Gram Stain - Final 12/16/16 04:00 Blood Blood Culture - Final NO GROWTH AFTER 5 DAYS 12/16/16 04:00 Blood Gram Stain - Final TEST NOT PERFORMED 12/18/16 05:32 Urine,Catheterized Urine Culture - Final Enterococcus Faecium 12/14/16 11:05 Blood-Venous Blood Culture - Final NO GROWTH AFTER 5 DAYS 12/14/16 11:05 Blood-Venous Gram Stain - Final TEST NOT PERFORMED 12/17/16 13:00 Blood Blood Culture - Final Vancomycin Resistant E.faecium 12/17/16 13:00 Blood Gram Stain - Final 12/14/16 10:35 Blood-Venous S.aureus & Coag-Neg Staph PNA FISH - Final 12/14/16 10:35 Blood-Venous Blood Culture - Final Vancomycin Resistant E.faecium 12/14/16 10:35 Blood-Venous Gram Stain - Final 12/14/16 14:50 Urine Urine Culture - Final No Growth (<1,000 CFU/ML) 12/10/16 07:22 Blood-Venous Blood Culture - Final NO GROWTH AFTER 5 DAYS 12/10/16 07:22 Blood-Venous Gram Stain - Final TEST NOT PERFORMED 12/10/16 07:58 Blood-Venous Blood Culture - Final NO GROWTH AFTER 5 DAYS 12/10/16 07:58 Blood-Venous Gram Stain - Final TEST NOT PERFORMED 12/10/16 11:18 Abdominal Fluid Gram Stain - Final 12/10/16 11:18 Abdominal Fluid Body Fluid Culture - Final Escherichia Coli 12/06/16 10:41 Blood-Venous Blood Culture - Final NO GROWTH AFTER 5 DAYS 12/06/16 10:41 Blood-Venous Gram Stain - Final TEST NOT PERFORMED 12/10/16 08:26 Urine,Loew Urine Culture - Final No Growth (<1,000 CFU/ML) 12/06/16 10:41 Blood-Venous Blood Culture - Final Escherichia Coli 12/06/16 10:41 Blood-Venous Gram Stain - Final 12/06/16 11:08 Urine,Lowe Urine Culture - Final Vancomycin Resistant E.faecium 12/03/16 06:00 Nose MRSA Culture - Final MRSA NOT DETECTED 11/23/16 18:00 Blood-Venous Blood Culture - Final NO GROWTH AFTER 5 DAYS 11/23/16 18:00 Blood-Venous Gram Stain - Final TEST NOT PERFORMED 11/23/16 20:00 Blood-Venous Blood Culture - Final NO GROWTH AFTER 5 DAYS 11/23/16 20:00 Blood-Venous Gram Stain - Final 11/26/16 Unknown Nose MRSA Culture (Admit) - Final MRSA NOT DETECTED 11/26/16 11:00 Rectum Ova and Parasite Concentrate Exam - Final 11/25/16 09:51 Stool Ova and Parasite Concentrate Exam - Final 11/18/16 Unknown Urine,Lowe Urine Culture - Final No Growth (<1,000 CFU/ML) 11/16/16 Unknown Stool Stool Culture - Final NO SALMONELLA, SHIGELLA OR CAMPYLOBACTER ISOLATED. 11/16/16 Unknown Urine Urine Culture - Final MULTIPLE SPECIES. SUGGEST REPEAT SPECIMEN. 11/16/16 Unknown Stool Ova and Parasite Concentrate Exam - Final Most Recent Lab Values WBC 12.0 K/uL (4.8-10.8) H 12/21/16 06:30 RBC 3.46 Mil/uL (4.40-5.90) L 12/21/16 06:30 Hgb 9.3 g/dL (12.0-18.0) L 12/21/16 06:30 Hct 28.9 % (35.0-51.0) L 12/21/16 06:30 MCV 83.6 fL (80.0-94.0) 12/21/16 06:30 MCH 26.9 pg (27.0-31.0) L 12/21/16 06:30 MCHC 32.2 g/dL (33.0-37.0) L 12/21/16 06:30 RDW 21.2 % (11.5-14.5) H 12/21/16 06:30 Plt Count 188 K/uL (130-400) 12/21/16 06:30 MPV 8.6 fL (7.2-11.7) 12/21/16 06:30 Neut % (Auto) 86.4 % (50.0-75.0) H 12/21/16 06:30 Lymph % (Auto) 6.5 % (20.0-40.0) L 12/21/16 06:30 Moore % (Auto) 6.9 % (0.0-10.0) 12/21/16 06:30 Eos % (Auto) 0.1 % (0.0-4.0) 12/21/16 06:30 Baso % (Auto) 0.1 % (0.0-2.0) 12/21/16 06:30 Neut # 10.4 K/uL (1.8-7.0) H 12/21/16 06:30 Lymph # 0.8 K/uL (1.0-4.3) L 12/21/16 06:30 Moore # 0.8 K/uL (0.0-0.8) 12/21/16 06:30 Eos # 0.0 K/uL (0.0-0.7) 12/21/16 06:30 Baso # 0.0 K/uL (0.0-0.2) 12/21/16 06:30 Neutrophils % (Manual) 64 % (50-75) 12/21/16 06:30 Band Neutrophils % 26 % (0-2) H* 12/21/16 06:30 Lymphocytes % (Manual) 2 % (20-40) L 12/21/16 06:30 Reactive Lymphs % TEST NOT PERFORMED 11/26/16 12:10 Monocytes % (Manual) 8 % (0-10) 12/21/16 06:30 Eosinophils % (Manual) 1 % (0-4) 12/18/16 07:08 Differential Comment 12/03/16 13:32 Toxic Granulation Present 12/06/16 07:20 Platelet Estimate Normal (NORMAL) 12/21/16 06:30 Plt Clumps, EDTA Present 11/15/16 22:04 Large Platelets Present 12/21/16 06:30 Giant Platelets Present 12/11/16 07:04 Polychromasia Slight 12/16/16 07:18 Hypochromasia (manual) Slight 12/21/16 06:30 Poikilocytosis (manual Slight 12/21/16 06:30 Anisocytosis (manual) Moderate 12/21/16 06:30 Microcytosis (manual) Slight 12/16/16 07:18 Macrocytosis (manual) Slight 12/08/16 07:15 Target Cells Slight 12/16/16 07:18 Tear Drop Cells Slight 12/21/16 06:30 Ovalocytes Slight 12/21/16 06:30 [place] Cells Slight 12/10/16 07:59 Schistocytes Slight 12/08/16 07:15 Retic Count 1.0 % (0.5-1.5) 11/20/16 06:43 Hemoglobin A 97.3 Percent (>96.0) 11/20/16 06:43 Hemoglobin A2 1.7 Percent (1.8-3.5) L 11/20/16 06:43 Hemoglobin C 0.0 Percent (0.0-0.0) 11/20/16 06:43 Hemoglobin F () <1.0 Percent (<2.0) 11/20/16 06:43 Hemoglobin S 0.0 Percent (0.0-0.0) 11/20/16 06:43 Variant Hemoglobin 0.0 Percent (0.0-0.0) 11/20/16 06:43 Hemoglobinopathy Red Blood Count 4.16 Mill/mcL (4.20-5.80) L 11/20/16 06:43 Hemoglobinopathy Hct 29.8 % (38.5-50.0) L 11/20/16 06:43 Hemoglobinopathy Hgb 8.9 g/dL (13.2-17.1) L 11/20/16 06:43 Hemoglobinopathy MCV 71.6 fL (80.0-100.0) L 11/20/16 06:43 Hemoglobinopathy MCH 21.5 pg (27.0-33.0) L 11/20/16 06:43 Hemoglobinopathy RDW 23.8 % (11.0-15.0) H 11/20/16 06:43 Hemoglobinopathy Interp See note 11/20/16 06:43 PT 15.0 SECONDS (9.7-12.2) H 12/03/16 07:08 INR 1.3 12/03/16 07:08 APTT 37 SECONDS (21-34) H 12/03/16 07:08 Puncture Site Rba 11/15/16 23:00 pCO2 24 mm/Hg (35-45) L 11/15/16 23:00 pO2 108 mm/Hg (80-100) H 11/15/16 23:00 HCO3 19.9 mmol/L (21-28) L 11/15/16 23:00 ABG pH 7.44 (7.35-7.45) 11/15/16 23:00 ABG Total CO2 17.0 mmol/L (22-28) L 11/15/16 23:00 ABG O2 Saturation 96.3 % (95-98) 11/15/16 23:00 ABG Base Excess -6.4 mmol/L (-2.0-3.0) L 11/15/16 23:00 ABG Hemoglobin 11.2 g/dL (11.7-17.4) L 11/15/16 23:00 ABG Carboxyhemoglobin 0 % (0.5-1.5) L 11/15/16 23:00 POC ABG HHb (Measured) 3.7 % (0.0-5.0) 11/15/16 23:00 ABG Methemoglobin 0.9 % (0.0-3.0) 11/15/16 23:00 Matthew Test Na 11/15/16 23:00 Hgb O2 Saturation 95.4 % (95.0-98.0) 11/15/16 23:00 Sodium 136 mmol/L (132-148) 12/21/16 06:30 Potassium 3.3 mmol/L (3.6-5.2) L 12/21/16 06:30 Chloride 106 mmol/L (98-107) 12/21/16 06:30 Carbon Dioxide 21 mmol/L (22-30) L 12/21/16 06:30 Anion Gap 12 (10-20) 12/21/16 06:30 BUN 18 mg/dL (9-20) 12/21/16 06:30 Creatinine 0.4 MG/DL (0.8-1.5) L 12/21/16 06:30 Est GFR ( Amer) > 60 12/21/16 06:30 Est GFR (Non-Af Amer) > 60 12/21/16 06:30 POC Glucose (mg/dL) 45 mg/dL (65-110) L 12/23/16 16:51 Random Glucose 189 mg/dL (75-110) H 12/21/16 06:30 Hemoglobin A1c 11.5 % (4.2-6.5) H D 11/20/16 13:06 Serum Osmolality 302 mosm/kg (272-300) H 11/16/16 04:40 Lactic Acid 2.1 mmol/L (0.7-2.1) 12/06/16 11:08 Calcium 6.5 mg/dl (8.6-10.4) L 12/21/16 06:30 Phosphorus 3.3 mg/dL (2.5-4.5) 12/21/16 06:30 Magnesium 1.8 mg/dL (1.6-2.3) 12/21/16 06:30 Iron 17 ug/dL (49-181) L 11/16/16 04:40 TIBC 182 ug/dL (250-450) L 11/16/16 04:40 % Saturation 10 (20-55) L 11/16/16 04:40 Ferritin 219.0 ng/mL 11/20/16 06:43 Total Bilirubin 0.6 mg/dL (0.2-1.3) 12/21/16 06:30 AST 11 U/L (17-59) L 12/21/16 06:30 ALT 25 U/L (21-72) 12/21/16 06:30 Alkaline Phosphatase 158 U/L (38-126) H 12/21/16 06:30 Troponin I < 0.0120 ng/mL (0.00-0.120) 11/15/16 22:04 C-React Prot High Sens > 15.00 mg/L (1.00-3.00) H 11/16/16 04:40 Total Protein 4.3 g/dL (6.3-8.3) L 12/21/16 06:30 Albumin 1.4 g/dL (3.5-5.0) L 12/21/16 06:30 Globulin 2.8 gm/dL (2.2-3.9) 12/21/16 06:30 Albumin/Globulin Ratio 0.5 (1.0-2.1) L 12/21/16 06:30 Triglycerides 61 mg/dL (0-149) D 11/18/16 16:56 Cholesterol 65 mg/dL (0-199) 11/18/16 16:56 LDL Cholesterol Direct 31 mg/dL (0-129) 11/18/16 16:56 HDL Cholesterol 25 mg/dL (30-70) L 11/18/16 16:56 Lipase < 10 U/L (23-300) L 11/18/16 16:56 CA 19-9 Antigen < 1.4 U/mL (0-37) 11/16/16 04:40 Vitamin B12 982 pg/mL (239-931) H 11/20/16 06:43 Folate 5.0 ng/mL 11/20/16 06:43 Procalcitonin 0.32 NG/ML (0.19-0.49) 12/08/16 07:15 Urine Color Isabel (YELLOW) 11/16/16 06:19 Urine Clarity Hazy (Clear) 11/16/16 06:19 Urine pH 5.0 (5.0-8.0) 11/16/16 06:19 Ur Specific [place] 1.027 (1.003-1.030) 11/16/16 06:19 Urine Protein 2+ mg/dL (NEGATIVE) H 11/16/16 06:19 Urine Glucose (UA) 1+ mg/dL (Normal) H 11/16/16 06:19 Urine Ketones 2+ mg/dL (NEGATIVE) H 11/16/16 06:19 Urine Blood Negative (NEGATIVE) 11/16/16 06:19 Urine Nitrate Negative (NEGATIVE) 11/16/16 06:19 Urine Bilirubin 1+ (NEGATIVE) H 11/16/16 06:19 Urine Urobilinogen 4.0 mg/dL (0.2-1.0) 11/16/16 06:19 Ur Leukocyte Esterase 2+ Ana/uL (Negative) H 11/16/16 06:19 Urine WBC (Auto) 187 /hpf (0-5) H 11/16/16 06:19 Urine RBC (Auto) 34 /hpf (0-3) H 11/16/16 06:19 Urine WBC Clumps (Auto) Few /hpf (NONE) H 11/16/16 06:19 Ur Squamous Epith Cells < 1 /hpf (0-5) 11/16/16 06:19 Urine Bacteria Mod (<OCC) H 11/16/16 06:19 Hyaline Casts 6-10 /lpf (0-2) H 11/16/16 01:43 Urine Yeast (Budding) Few /hpf (NEGATIVE) H 11/16/16 06:19 Peritoneal Amylase 80 U/L 11/20/16 14:53 Peritoneal CEA 2 ng/mL (<2.0) H 11/20/16 14:53 Stool Leukocytes, Qual Negative (NEGATIVE) 11/16/16 Unknown Gentamicin Trough 1.7 ug/mL (0.0-0.9) H 12/17/16 06:07 Random Gentamicin 0.9 ug/mL 12/15/16 06:23 Urine Opiates Screen Negative (NEGATIVE) 11/16/16 01:43 Urine Methadone Screen Negative (NEGATIVE) 11/16/16 01:43 Ur Barbiturates Screen Negative (NEGATIVE) 11/16/16 01:43 Ur Phencyclidine Scrn Negative (NEGATIVE) 11/16/16 01:43 Ur Amphetamines Screen Negative (NEGATIVE) 11/16/16 01:43 U Benzodiazepines Scrn Negative (NEGATIVE) 11/16/16 01:43 U Oth Cocaine Metabols Negative (NEGATIVE) 11/16/16 01:43 U Cannabinoids Screen Negative (NEGATIVE) 11/16/16 01:43 Serum Ketones Moderate (NEGATIVE) 11/16/16 00:27 C. difficile Ag & Toxin Negative (NEGATIVE) 12/10/16 07:59 Hepatitis A IgM Ab Negative (NEGATIVE) 11/18/16 16:56 Hep Bs Antigen Negative (NEGATIVE) 11/18/16 16:56 Hep B Core IgM Ab Negative (NEGATIVE) 11/18/16 16:56 Hepatitis C Antibody Negative (NEGATIVE) 11/18/16 16:56 HIV 1&2 Antibody Screen Negative (NEGATIVE) 11/18/16 16:56 Blood Type O POSITIVE 12/13/16 10:38 Antibody Screen Negative 12/13/16 10:38 Attending/Attestation - Attestation I have personally seen and examined this patient.: Yes I have fully participated in the care of the patient.: Yes I have reviewed all pertinent clinical information, including history, physical exam and plan: Yes Notes (Text): 12/23/16 19:02 Medical attending: Patient was seen and examined by me earlier in the morning. Agree with the above note by medical donation professional. I was updated by the medical donation professional with regards to the events of last week. Unfortunately throughout last week he became weaker and weaker his appetite was Nothing continued to have abdominal pain and he was decided last week that he would pursue hospice care. He was ready DNR/DNI When I saw the patient this morning he was moaning pain. He was not able to follow any commands whatsoever. On exam with pressing on the abdomen he had a lot of pain on exam. 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 He still had the drain in from the abscess that was attempted to be drained from before he was still having a lot of drainage in the drain. Since the previous tolerated seen him he developed a lot of whole body anasarca reticulate in the lower extremities and also upper extremities. Per my discussion with the nursing that they explained that the patient as well as moaning in pain however they haven't been able to get him to cooperate to swallow any pain medication. There was no IV access as this has been taken out the previous week. We decided we would use try to comfort the patient with a transdermal fentanyl patch. Later on in the afternoon I was notified that the patient had . From my previous discussions with the patient he does not have any close family members living with him or in this country. He explains to us that he does have some family members living in [place]. This morning there was a woman at bedside who was not a family member but identified herself as a close friend Thank you very much, EDRS will be filled out by me Abdiel Cai
--- NOTE | 2017-01-14 21:04 | OP ---
PROCEDURE DATE: 12/22/2016 PREOPERATIVE DIAGNOSES: 1. 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 2. Hematuria. 3. Bilateral hydronephrosis. POSTOPERATIVE DIAGNOSES: 1. 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 2. Hematuria. 3. Bilateral hydronephrosis. 4. Most likely there is invasion through the bladder muscle. See the addendum at the end of this note. PROCEDURES: Cystoscopy, bilateral retrograde pyelograms, bilateral stent insertions, double-J stents on both sides. ESTIMATED BLOOD LOSS: Less than 10 mL. COMPLICATIONS: None. INDICATIONS: See history and physical and the multiple progress notes and consult notes. The patient is under the care of general surgeons who are planning resection, in fact, and so this is mostly to place stents to protect the ureters during their surgical resection. See the addendum at the end regarding further urology plans and interventions, but the placement of stents was accomplished today. FINDINGS: 1. The urology findings are normal. 2. No strictures on reviewing and is visually occlusive to about 2-3 cm. 3. Within the urinary bladder, the ureter was identified. Retrograde pyelogram shows hydronephrosis bilateral and tortuous ureters, but we are able to slowly, gently, and carefully able to get bilateral stents in. The other significant finding is within the bladder mucosa, it looks like there is tumor growing into the bladder wall. No biopsies are taken at this point. See the addendum listed below. DESCRIPTION OF PROCEDURE: After obtaining informed consent, the patient was placed on the table where the routine monitors were placed. Time-out was called. We had discussed with the general surgeons our plans and their plans. This is mostly done to protect the ureters during their surgical resection. See the addendum at the end because we are also planning to be available for their procedure if this bladder involvement directly per se that they need urology involved. The procedure continues in the following fashion: The patient was identified, time-outs were called and confirmed the patient positioning, etc. Cystoscope via the urethra, anterior was normal and free of strictures. On reviewing it, it was minimally to moderately visually occlusive. The procedure continued. The ureteral orifices were identified. Retrograde pyelogram films were submitted to the radiologist. At this point, we passed a wire gently and carefully. We worked on the left and right side separately. We are able to insert double-J stents bilaterally. At the termination, they were in good location. The bladder was emptied. Again, regarding the bladder mucosal finding, it looks like this is some kind of invasion with growth involved. Again, the procedure was mostly to protect the stents. So, I did not do any biopsies and stir up any bleeding or the like. The patient tolerated the procedure well without complications. ADDENDUM: We will see what the general surgeons plan, they are planning for a resection of some kind. We discussed being available if they will need us for bladder closure, bladder repair, etc., depending on what they will find intraoperatively, but in the meantime they will have the patient with bilateral stents in place protecting his kidneys and protecting the ureters. Micheal Jon MD
== END 2016-12-23 18:45 | DRG 356 ==
LOC: C.ER 21:14 → C.9E 11-16 02:23 → C.6T 11-16 02:23 → C.9I 11-26 11:26 → C.3T 12-03 00:49 → C.6T 12-05 09:07
PROVIDERS: ADMIT Hospitalist; ATTEND Hospitalist
PROC: 0DBN8ZX Excision of Sigmoid Colon, Via Natural or Artificial Opening Endoscopic, Diagnostic (ICD-10-PCS; 2016-11-18)
PROC: 0DB38ZX Excision of Lower Esophagus, Via Natural or Artificial Opening Endoscopic, Diagnostic (ICD-10-PCS; 2016-11-18)
PROC: 0DB68ZX Excision of Stomach, Via Natural or Artificial Opening Endoscopic, Diagnostic (ICD-10-PCS; 2016-11-18)
PROC: 0DBL8ZX Excision of Transverse Colon, Via Natural or Artificial Opening Endoscopic, Diagnostic (ICD-10-PCS; 2016-11-18 12:53)
PROC: 0F9G4ZZ Drainage of Pancreas, Percutaneous Endoscopic Approach (ICD-10-PCS; 2016-11-20)
PROC: B518ZZA Fluoroscopy of Superior Vena Cava, Guidance (ICD-10-PCS; 2016-11-21)
PROC: 0T788DZ Dilation of Bilateral Ureters with Intraluminal Device, Via Natural or Artificial Opening Endoscopic (ICD-10-PCS; 2016-11-21)
PROC: BT14ZZZ Fluoroscopy of Kidneys, Ureters and Bladder (ICD-10-PCS; 2016-11-21)
PROC: 02HV33Z Insertion of Infusion Device into Superior Vena Cava, Percutaneous Approach (ICD-10-PCS; principal; 2016-11-21 13:00)
PROC: 0WJG0ZZ Inspection of Peritoneal Cavity, Open Approach (ICD-10-PCS; 2016-11-26)
PROC: 0DJD8ZZ Inspection of Lower Intestinal Tract, Via Natural or Artificial Opening Endoscopic (ICD-10-PCS; 2016-11-26)
PROC: 30233N1 Transfusion of Nonautologous Red Blood Cells into Peripheral Vein, Percutaneous Approach (ICD-10-PCS; 2016-11-26)
PROC: 0JH60XZ Insertion of Tunneled Vascular Access Device into Chest Subcutaneous Tissue and Fascia, Open Approach (ICD-10-PCS; 2016-12-03)
PROC: 02HV33Z Insertion of Infusion Device into Superior Vena Cava, Percutaneous Approach (ICD-10-PCS; 2016-12-03)
PROC: B518ZZA Fluoroscopy of Superior Vena Cava, Guidance (ICD-10-PCS; 2016-12-03)
PROC: 02HV33Z Insertion of Infusion Device into Superior Vena Cava, Percutaneous Approach (ICD-10-PCS; 2016-12-05)
PROC: B518ZZA Fluoroscopy of Superior Vena Cava, Guidance (ICD-10-PCS; 2016-12-05)
PROC: 0W9J30Z Drainage of Pelvic Cavity with Drainage Device, Percutaneous Approach (ICD-10-PCS; 2016-12-10)
PROC: BW21ZZZ Computerized Tomography (CT Scan) of Abdomen and Pelvis (ICD-10-PCS; 2016-12-10)
DX: C19 Malignant neoplasm of rectosigmoid junction (principal); K65.1 Peritoneal abscess; C79.11 Secondary malignant neoplasm of bladder; C79.89 Secondary malignant neoplasm of other specified sites; K63.1 Perforation of intestine (nontraumatic); A41.9 Sepsis, unspecified organism; E13.10 Other specified diabetes mellitus with ketoacidosis without coma; J90 Pleural effusion, not elsewhere classified; K63.0 Abscess of intestine; I85.00 Esophageal varices without bleeding; I82.623 Acute embolism and thrombosis of deep veins of upper extremity, bilateral; K86.2 Cyst of pancreas; F32.1 Major depressive disorder, single episode, moderate; B37.49 Other urogenital candidiasis; K90.9 Intestinal malabsorption, unspecified; N13.30 Unspecified hydronephrosis; K22.10 Ulcer of esophagus without bleeding; K66.0 Peritoneal adhesions (postprocedural) (postinfection); R31.9 Hematuria, unspecified; D69.6 Thrombocytopenia, unspecified; E11.649 Type 2 diabetes mellitus with hypoglycemia without coma; I27.2 Other secondary pulmonary hypertension; E83.51 Hypocalcemia; D63.8 Anemia in other chronic diseases classified elsewhere; E78.5 Hyperlipidemia, unspecified; E86.0 Dehydration; E87.6 Hypokalemia; K63.5 Polyp of colon; I07.1 Rheumatic tricuspid insufficiency; D50.9 Iron deficiency anemia, unspecified; I10 Essential (primary) hypertension; I86.4 Gastric varices; K29.70 Gastritis, unspecified, without bleeding; K80.20 Calculus of gallbladder without cholecystitis without obstruction; I95.81 Postprocedural hypotension; Z53.9 Procedure and treatment not carried out, unspecified reason; Z51.5 Encounter for palliative care; Z66 Do not resuscitate; K59.00 Constipation, unspecified; W19.XXXA Unspecified fall, initial encounter; Z74.01 Bed confinement status; Z79.4 Long term (current) use of insulin; I25.2 Old myocardial infarction; Z91.81 History of falling; Z91.19 Patient's noncompliance with other medical treatment and regimen; Z85.028 Personal history of other malignant neoplasm of stomach